=== PATIENT | female | born 1955 | race American Indian/Alaskan Native ===

== ENCOUNTER 2020-01-02 10:21 | Emergency (ER) | payer BC, MEDICARE, OTHER ==
[~2020-01-02] VITALS: Ht 154.9 cm; Wt 93.9 kg
--- OUTSIDE RECORDS SUMMARY | ~2020-01-02 | XMS | Encounter Summary ---
Demographics + + + | Address | [address] | | | [place] [address] | + + + | Home Phone | | + + + | Preferred Language | Unknown | + + + | Marital Status | | + + + | Moravian Affiliation | 1041 | + + + | Race | Unknown | + + + | Ethnic Group | Not or | + + + Author + + + | Author | [facility] | | | and [place] | + + + | Organization | [facility] | | | and [place] | + + + | Address | Unknown | + + + | Phone | Unavailable | + + + Support + + +---------+ + | Name | Relationship | Address | Phone | + + +---------+ + | Giacomo [place] | ECON | Unknown | | + + +---------+ + | Ninfa Morel | ECON | Unknown | | + + +---------+ + Care Team Providers + +------+ + | Care Manager Of Human Resources Name | Role | Phone | + +------+ + | Jean Carlos Crowell PA-C | PCP | | + +------+ + Encounter Details +--------+ + + + + | Date | Type | Department | Care Team | Description | +--------+ + + + + | 11/17/ | Orders Only | [facility] | Alyssamarielos, | | | 2018 | | RHEUMATOLOGY [address] | Jess Ortiz SENSORY SCIENTIST [address] | | | | | [address] | [address] | | | | | [place], [place] | [place] [address] | | | | | [address] | [phone] | | | | | [phone] | | | +--------+ + + + + Social History + +-------+ +--------+------+ | Tobacco Use | Types | Packs/Day | Years | Date | | | | | Used | | + +-------+ +--------+------+ | Current Every Day | | 0.5 | 40 | | | Smoker | | | | | + +-------+ +--------+------+ + +---+---+---+ | Smokeless Tobacco: | | | | | Never Used | | | | + +---+---+---+ + + +---------+ + | Alcohol Use | Drinks/Week | oz/Week | Comments | + + +---------+ + | No | | | | + + +---------+ + + + + | Sex Assigned at | Date Recorded | | | | + + + | Not on file | | + + + documented as of this encounter Plan of Treatment +--------+---------+ + + + | Date | Type | Specialty | Care Team | Description | +--------+---------+ + + + | 01/15/ | Office | Rheumatology | Trevon, | | | 2020 | Visit | | [address] | | | | | | [address] | | | | | | [place] [address] | | | | | | [phone] | | | | | | | | +--------+---------+ + + + documented as of this encounter Visit Diagnoses Not on filedocumented in this encounter"
--- OUTSIDE RECORDS SUMMARY | ~2020-01-02 | XMS | Encounter Summary ---
Demographics + + + | Address | [address] | | | [place] [address] | + + + | Home Phone | | + + + | Preferred Language | Unknown | + + + | Marital Status | | + + + | Anglican Affiliation | 1041 | + + + | Race | Unknown | + + + | Ethnic Group | Not or | + + + Author + + + | Author | [facility] | | | and [place] | + + + | Organization | [facility] | | | and [...] Team Providers + +------+ + | Care Forge Press Operator Name | Role | Phone | + +------+ + | Jean Carlos Crowell PA-C | PCP | | + +------+ + Encounter Details +--------+ + + + + | Date | Type | Department | Care Team | Description | +--------+ + + + + | 06/18/ | Hospital | [facility] | Crys Garber | Mastodynia of left | | 2020 | Encounter | MED CTR MAMMOGRAPHY | STEVE Riggins [address] | breast | | | | [address] | [address] | | | | | [place], [place] | [place] [address] | | | | | [address] | [phone] | | | | | [phone] | | | | | | | Rad, [facility] | | +--------+ + + + + [...] + + documented as of this encounter Medications at Time of Discharge + + + +---------+ + + | Medication | Sig | Dispensed | Refills | Start | End Date | | | | | | Date | | + + + +---------+ + + | aspirin 81 mg EC | Take 81 mg by mouth | | 0 | | | | tablet | Daily. | | | | | + + + +---------+ + + | atorvaSTATin | | | 0 | 10/11/20 | | | (LIPITOR) 10 mg | | | | 18 | | | tablet | | | | | | + + + +---------+ + + | celecoxib | Take 200 mg by mouth | | 0 | | | | (CELEBREX) 200 mg | 2 times daily. | | | | | | capsule | | | | | | + + + +---------+ + + | Cholecalciferol | Take by mouth. | | 0 | | | | 59996 units CAPS | | | | | | + + + +---------+ + + | etodolac (LODINE) | Take 400 mg by mouth | | 0 | | | | 400 mg tablet | 2 times daily. | | | | | + + + +---------+ + + | folic acid 1 mg | Take 1 tablet by | | 0 | //20 | | | tablet | mouth daily. Take | | | 19 | | | | one tablet daily | | | | | + + + +---------+ + + | insulin aspart | Inject 20 Units into | | 0 | | | | (NOVOLOG) 100 | the skin 3 (three) | | | | | | units/mL injection | times daily before | | | | | | | meals. | | | | | + + + +---------+ + + | insulin glargine | Inject 80 Units into | | 0 | | | | (LANTUS) 100 | the skin 2 (two) | | | | | | units/mL injection | times daily. | | | | | | (vial) | | | | | | + + + +---------+ + + | insulin pen needle | 31 g. | | 0 | 04/03/19 | | | (B-D ULTRAFINE III | | | | 16 | | | SHORT PEN) 31 gauge | | | | | | | x 8 mm | | | | | | + + + +---------+ + + | LANTUS SOLOSTAR | Inject 50 Units | | 0 | 10/19/19 | | | 100 UNIT/ML | under the skin 2 | | | 17 | | | injection (pen) | times daily. | | | | | + + + +---------+ + + | levothyroxine | Take 25 mcg by mouth | | 0 | 04/10/19 | | | (SYNTHROID) 25 mcg | daily. | | | 16 | | | tablet | | | | | | + + + +---------+ + + | losartan (COZAAR) | Take 50 mg by mouth | | 0 | | | | 50 mg tablet | Daily. | | | | | + + + +---------+ + + | metFORMIN | Take 1,000 mg by | | 0 | | | | (GLUCOPHAGE) 1000 MG | mouth 2 (two) times | | | | | | tablet | daily with meals. | | | | | + + + +---------+ + + | NOVOLOG FLEXPEN | | | 0 | 07/05/20 | | | 100 UNIT/ML | | | | 17 | | | injection pen | | | | | | + + + +---------+ + + | PARoxetine (PAXIL) | Take by mouth. | | 0 | | | | 20 mg tablet | | | | | | + + + +---------+ + + | sertraline | | | 0 | 08/27/19 | | | (ZOLOFT) 100 mg | | | | 17 | | | tablet | | | | | | + + + +---------+ + + | simvastatin | Take 10 mg by mouth | | 0 | | | | (ZOCOR) 10 mg tablet | nightly. | | | | | + + + +---------+ + + | telmisartan | Take 20 mg by mouth | | 0 | | | | (MICARDIS) 20 MG | daily. | | | | | | tablet | | | | | | + + + +---------+ + + | calcium-vitamin D | Take by mouth. | | 0 | | | | (CALCIUM 600+D3) 600 | | | | | 0 | | mg-400 units per | | | | | | | tablet | | | | | | + + + +---------+ + + | methotrexate 2.5 | Take 6 tablets by | 72 | 0 | 05/21/19 | | | mg | mouth Once a week. | tablet | | 20 | 0 | | tabletIndications: | Indications: | | | | | | Rheumatoid Arthritis | Rheumatoid Arthritis | | | | | + + + +---------+ + + | omeprazole | Take 20 mg by mouth | | 0 | | | | (PRILOSEC) 20 mg | every morning | | | | 0 | | capsule | (before breakfast). | | | | | + + + +---------+ + + | sulfaSALAzine | Take 1 tablet by | 270 | 0 | 05/21/19 | | | (AZULFIDINE) 500 mg | mouth 3 (three) | tablet | | 20 | 0 | | tablet | times daily. | | | | | + + + +---------+ + + documented as of this encounter Plan of Treatment +--------+---------+ + + + | Date | Type | Specialty | Care Team | Description | +--------+---------+ + + + | 01/15/ | Office | Rheumatology | Trevon, | | | 2019 | Visit | | Jess Ortiz [facility] [address] | | | | | | [address] | | | | | | [place] [address] | | | | | | [phone] | | | | | | | | +--------+---------+ + + + documented as of this encounter Procedures + +--------+ + + + | Procedure Name | Priori | Date/Time | Associated Diagnosis | Comments | | | ty | | | | + +--------+ + + + | LYNDON TOMOSYN | Routin | 06/19/2019 | Mastodynia of left | Results for this | | DIAGNOSTIC BILATERAL | e | 10:35 AM | breast | procedure are in the | | | | PDT | | results section. | + +--------+ + + + documented in this encounter Results LYNDON Tomosynthesis Diagnostic Bilateral (06/19/2019 10:35 AM PDT) + + | Specimen | + + | | + + + + + | Impressions | Performed At | + + + | BI-RADS CATEGORY 2: BENIGN FINDINGS. The palpable abnormality | [facility] | | corresponds to a lymph node without suspicious features. | | | RECOMMENDATION: Return to normal screening intervals. Continue self | | | breast exam. Continue left axillary examination. The patient is | | | encouraged to return for progressive symptoms or new palpable | | | abnormalities. I discussed the findings and recommendations with | | | the patient following completion of exam. Dictated and Signed by: | | | Adán Serna MD Electronically signed: 06/19/2019 12:42 PM | | + + + + + + | Narrative | Performed At | + + + | EXAM: LYNDON TOMOSYN DIAGNOSTIC BILATERAL, US BREAST LIMITED LEFT dated | [facility] | | 06/19/2019 10:35 AM HISTORY: Diagnostic breast imaging. | | | Mastodynia of left breast; SCREEN RIGHT TECHNIQUE: Bilateral | | | digital CC and MLO. Left breast lateral. Atilio synthesis is | | | performed. CAD is. Limited left axillary ultrasound. | | | COMPARISON: Mammograms dating back to 06/25/2013. MAMMOGRAM: | | | Heterogeneously dense breast parenchyma bilaterally. No | | | architectural distortion. No distinct masses. No suspicious | | | microcalcifications. There are bilateral vascular calcifications. | | | There are scattered round microcalcifications. Stable appearing | | | left axillary lymph nodes. ULTRASOUND: Imaging of the left axilla | | | is performed. The palpable abnormality corresponds to a lymph node | | | with a hypertrophied fatty hilus and a thin rim of tissue. There | | | is also a more typical appearing smaller lymph node in the same | | | region. No other abnormalities are noted. | | + + + + + | Procedure Note | + + | Norm, Rad Results In - 06/19/2019 12:45 PM PDT EXAM: LYNDON TOMOSYN DIAGNOSTIC BILATERAL, | | US BREAST LIMITED LEFT dated 06/19/201910:35 AMHISTORY: Diagnostic breast imaging. | | Mastodynia of left breast; SCREEN RIGHTTECHNIQUE: Bilateral digital CC and MLO. Left | | breast lateral. Atilio synthesisis performed. CAD is. Limited left axillary | | ultrasound.COMPARISON: Mammograms dating back to 06/25/2013.MAMMOGRAM: Heterogeneously | | dense breast parenchyma bilaterally. Noarchitectural distortion. No distinct masses. | | No suspiciousmicrocalcifications. There are bilateral vascular calcifications. There | | arescattered round microcalcifications. Stable appearing left axillary | | lymphnodes.ULTRASOUND: Imaging of the left axilla is performed. The palpable | | abnormalitycorresponds to a lymph node with a hypertrophied fatty hilus and a thin rim | | oftissue. There is also a more typical appearing smaller lymph node in the sameregion. | | No other abnormalities are noted.IMPRESSION: BI-RADS CATEGORY 2: BENIGN FINDINGS. The | | palpable abnormality corresponds to alymph node without suspicious | | features.RECOMMENDATION: Return to normal screening intervals. Continue self | | breastexam. Continue left axillary examination. The patient is encouraged to returnfor | | progressive symptoms or new palpable abnormalities. I discussed thefindings and | | recommendations with the patient following completion of exam.Dictated and Signed by: | | Adán Serna MD Electronically signed: 06/19/2019 12:42 PM | |tissue. There is also a more typical appearing smaller lymph node in the same | |region. No other abnormalities are noted. | | | |IMPRESSION: | | | |BI-RADS CATEGORY 2: BENIGN FINDINGS. The palpable abnormality corresponds to a | |lymph node without suspicious features. | | | |RECOMMENDATION: Return to normal screening intervals. Continue self breast | |exam. Continue left axillary examination. The patient is encouraged to return | |for progressive symptoms or new palpable abnormalities. I discussed the | |findings and recommendations with the patient following completion of exam. | | | |Dictated and Signed by: Adán Serna MD | | Electronically signed: 06/19/2019 12:42 PM | + + + +---------+ + + | Performing | Address | City/State/Zipcode | Phone Number | | Organization | | | | + +---------+ + + | [facility] | | | | + +---------+ + + documented in this encounter Visit Diagnoses + + | Diagnosis | + + | Mastodynia of left breast | + + documented in this encounter"
--- OUTSIDE RECORDS SUMMARY | ~2020-01-02 | XMS | Encounter Summary ---
Demographics + + + | Address | [address] | | | [place] [address] | + + + | Home Phone | | + + + | Preferred Language | Unknown | + + + | Marital Status | | + + + | Alevism Affiliation | 1041 | + + + | Race | Unknown | + + + | Ethnic Group | Not or | + + + Author + + + | Author | [facility] | | | and [place] | + + + | Organization | [facility] | | | [...] Team Providers + +------+ + | Care Operations Research Scientist Name | Role | Phone | + +------+ + | Jean Carlos Crowell PA-C | PCP | | + +------+ + Encounter Details +--------+ + + + + | Date | Type | Department | Care Team | Description | +--------+ + + + + | 06/18/ | Hospital | [facility] | Say Garberth | Mastodynia of left | | 2020 | Encounter | MED CTR ULTRASOUND | Vaishnavi PA-C [address] | breast | | | | [address] [place] | [address] | | | | | [place], [place] | [place] [address] | | | | | [address] | [phone] | | | | | [phone] | | | +--------+ + + + [...] | | 0 | | | | 22760 units CAPS | | | | | | + + + +---------+ + + | etodolac (LODINE) | Take 400 mg by mouth | | 0 | | | | 400 mg tablet | 2 times daily. | | | | | + + + +---------+ + + | folic acid 1 mg | Take 1 tablet by | | 0 | 05/30/19 | | | tablet | mouth daily. [...] | | 2020 | Visit | | Jess Ortiz [facility] [address] | | | | | | [address] | | | | | | [place] [address] | | | | | | [phone] | | | | | | | | +--------+---------+ + + + documented as of this encounter Procedures + +--------+ + + + | Procedure Name | Priori | Date/Time | Associated Diagnosis | Comments | | | ty | | | | + +--------+ + + + | US BREAST LIMITED | Routin | 06/19/2019 | Mastodynia of left | Results for this | | LEFT | e | 11:18 AM | breast | procedure are in the | | | | PDT | | results section. | + +--------+ + + + documented in this encounter Results US Breast Limited Left (06/19/2019 11:18 AM PDT) + + | Specimen | [...]
--- OUTSIDE RECORDS SUMMARY | ~2020-01-02 | XMS | Encounter Summary ---
Demographics + + + | Address | [address] | | | [place] [address] | + + + | Home Phone | | + + + | Preferred Language | Unknown | + + + | Marital Status | | + + + | Mandaen Affiliation | 1041 | + + + | Race | Unknown | + + + | Ethnic Group | Not or | + + + Author + + + | Author | [facility] | | | and [place] | + + + | Organization | [facility] | | | and [...] Team Providers + +------+ + | Care Water Taxi Captain Name | Role | Phone | + +------+ + | Jean Carlos Crowell PA-C | PCP | | + +------+ + Encounter Details +--------+ + + + + | Date | Type | Department | Care Team | Description | +--------+ + + + + | 11/09/ | Orders Only | [facility] | Naseem Umanzor, | | | 2017 | | MED CTR PROVIDER | [address] | | | | | SURGICAL [address] | [place], [place] | | | | | [place], | [address] | | | | | [place] [address] | | | | | | [phone] | | | +--------+ + + + + Social History + +-------+ +--------+------+ | Tobacco Use | Types | Packs/Day | Years | Date | | | | | Used | | + +-------+ +--------+------+ | Current Every Day | | 0.5 | 40 | | | Smoker | | | | | + +-------+ +--------+------+ + + +---------+ + | Alcohol Use [...] 2020 | Visit | | [address] | | | | | | [address] | | | | | | [place] [address] | | | | | | [phone] | | | | | | | | +--------+---------+ + + + documented as of this encounter Visit Diagnoses Not on filedocumented in this encounter"
--- OUTSIDE RECORDS SUMMARY | ~2020-01-02 | XMS | Encounter Summary ---
Demographics + + + | Address | [address] | | | [place] [address] | + + + | Home Phone | | + + + | Preferred Language | Unknown | + + + | Marital Status | | + + + | Jain Affiliation | 1041 | + + + | Race | Unknown | + + + | Ethnic Group | Not or | + + + Author + + + | Author | [facility] | | | and [place] | + + + | Organization | [facility] | | | [...] Team Providers + +------+ + | Care Vacuum Drier Operator Name | Role | Phone | + +------+ + PCP | Unavailable | + +------+ + Encounter Details +--------+ + + + + | Date | Type | Department | Care Team | Description | +--------+ + + + + | 10/18/ | Hospital | [facility] | Gavin Aguilar | | | 2006 | Encounter | MED CTR SLEEP | MD Mj [address] [place] [address] | | | | | [place] [address] | [address] [place] | | | | | [place], [place] | [place] [address] | | | | | [address] | [phone] | | | | | [phone] | | | +--------+ + + + + Social History + +-------+ +--------+------+ | Tobacco Use | Types | Packs/Day | Years | Date | | | | | Used | | + +-------+ +--------+------+ | Never Assessed | | | | | + +-------+ +--------+------+ + + + | Sex Assigned at [...] [address] | | | | | | [place] [address] | | | | | | [phone] | | | | | | | | +--------+---------+ + + + documented as of this encounter Visit Diagnoses Not on filedocumented in this encounter"
--- OUTSIDE RECORDS SUMMARY | ~2020-01-02 | XMS | Encounter Summary ---
Demographics + + + | Address | [address] | | | [place] [address] | + + + | Home Phone | | + + + | Preferred Language | Unknown | + + + | Marital Status | | + + + | Episcopal Affiliation | 1041 | + + + | Race | Unknown | + + + | Ethnic Group | Not or | + + + Author + + + | Author | [facility] | | | and [place] | + + + | Organization | [facility] | | | and [...] Team Providers + +------+ + | Care Hot Water Heater Installer Name | Role | Phone | + +------+ + | Jean Carlos Crowell PA-C | PCP | | + +------+ + Encounter Details +--------+ + + + + | Date | Type | Department | Care Team | Description | +--------+ + + + + | 03// | Imaging | [facility] | Provider, | | | 2020 | Exam | MED CTR EXTERNAL | MD [address] | | | | | IMAGING [address] | [address] | | | | | [address] [place] | [place] [address] | | | | | [place] [address] | | | | | | [phone] | | | +--------+ + + + [...] | | 2019 | Visit | | [address] | | | | | | [address] | | | | | | [place] [address] | | | | | | [phone] | | | | | | | | +--------+---------+ + + + documented as of this encounter Procedures + +--------+ + + + | Procedure Name | Priori | Date/Time | Associated Diagnosis | Comments | | | ty | | | | + +--------+ + + + | LYNDON DIGITAL | Routin | 08/27/2014 | | Results for this | | SCREENING BILATERAL | e | 12:00 AM | | procedure are in the | | | | PDT | | results section. | + +--------+ + + + documented in this encounter Results LYNDON Digital Screening Bilateral (08/27/2014 12:00 AM PDT) + + | Specimen | + + | | + + + + + | Narrative | Performed At | + + + | External films for comparison only | [facility] | | | | | No results will be in the chart. | | + + + + +---------+ + + | Performing | Address | City/State/Zipcode | Phone Number | | Organization | | | | + +---------+ + + | [facility] | | | | + +---------+ + + documented in this encounter Visit Diagnoses Not on filedocumented in this encounter"
--- OUTSIDE RECORDS SUMMARY | ~2020-01-02 | XMS | Encounter Summary ---
Demographics + + + | Address | [address] | | | [place] [address] | + + + | Home Phone | | + + + | Preferred Language | Unknown | + + + | Marital Status | | + + + | Judaism Affiliation | 1041 | + + + | Race | Unknown | + + + | Ethnic Group | Not or | + + + Author + + + | Author | [facility] | | | and [place] | + + + | Organization | [facility] | | | [...] Team Providers + +------+ + | Care Irrigation Pump Installer Name | Role | Phone | + +------+ + | Jean Carlos Crowell PA-C | PCP | | + +------+ + Reason for Referral Evaluate & Treat (Routine) +--------+ + + + + + | Status | Reason | Specialty | Diagnoses / | Referred By | Referred To | | | | | Procedures | Contact | Contact | +--------+ + + + + + | Denied | Specialty | Physical | Diagnoses | | [facility] | | | Services | Therapy | Thoracic | Diego, | [facility] | | | Required | | back pain | Luis Richey MD | HOSPITAL | | | | | Osteoporosis | [address] | [address] | | | | | | [address] [place] [address] | | | | | Compression | [place], [place] | [place], [place] | | | | | fracture of | [address] | [address] | | | | | thoracic | Phone: | Phone: | | | | | vertebra, | [phone] | [phone] | | | | | sequela | Fax: | Fax: | | | | | | [phone] | [phone] | +--------+ + + + + + Reason for Visit + + + | Reason | Comments | + + + | Back Pain | mid back pain | + + + Evaluate & Treat (Routine) +--------+--------+ + + + + | Status | Reason | Specialty | Diagnoses / | Referred By | Referred To | | | | | Procedures | Contact | Contact | +--------+--------+ + + + + | Closed | | Physical | Diagnoses | Mervat, | Diego, | | | | Medicine and | Mid back | Jean Carlos Valle, | Luis Richey MD | | | | Rehabilitatio | pain | PA-C [address] | [address] | | | | n | | [address] | | | | | | [address] | [place] | | | | | | [place], | [address] Phone: | | | | | | [place] [address] | [phone] | | | | | | Phone: | Fax: | | | | | | [phone] | [phone] | | | | | | Fax: | | | | | | | [phone] | | +--------+--------+ + + + + Encounter Details +--------+---------+ + + + | Date | Type | Department | Care Team | Description | +--------+---------+ + + + | 10/18/ | Office | [facility] | Luis Cortez | Thoracic back pain | | 2013 | Visit | PHYSIATRY [address] | MD Kaiden [address] | (Primary Dx); | | | | [address] | [place] | Osteoporosis; | | | | [place], [place] | [address] | Compression fracture | | | | [address] | | of thoracic | | | | [phone] | | vertebra, sequela | +--------+---------+ + + + Social History + +-------+ [...] + + documented as of this encounter Last Filed Vital Signs + + + + + | Vital Sign | Reading | Time Taken | Comments | + + + + + | Blood Pressure | 104/62 | 10/18/2013 10:01 AM | | | | | PDT | | + + + + + | Pulse | 97 | 10/18/2013 10:01 AM | | | | | PDT | | + + + + + | Temperature | - | - | | + + + + + | Respiratory Rate | - | - | | + + + + + | Oxygen Saturation | - | - | | + + + + + | Inhaled Oxygen | - | - | | | Concentration | | | | + + + + + | Weight | 95.3 kg (210 lb) | 10/18/2013 10:01 AM | | | | | PDT | | + + + + + | Height | 157.5 cm (5' 2") | 10/18/2013 10:01 AM | | | | | PDT | | + + + + + | Body Mass Index | 38.41 | 10/18/2013 10:01 AM | | | | | PDT | | + + + + + documented in this encounter Progress Notes Luis Cortez MD - 10/18/2013 9:08 AM PDT CHIEF COMPLAINT: Chief Complaint Patient presents with Back Pain mid back pain HISTORY OF PRESENT ILLNESS: The patient is a 58 y.o. female being seen today at the [facility] of Jean Carlos Crowell PA-C for complaints of mid back pain that began 2 months ago. The sympto ms began after no known recent injury or insult. She does have a history of fracturing 2 ve rtebra and needing surgery. She reports that at least one of the fractures occurred just fr om lifting something heavy. She reports her symptoms are a dull aching in the thoracic zuleyma on that is daily, but comes and goes. She reports the pain is severe, worse with prolonged sitting - expecially on a hard chair. She reports the pain is better with rest, lying down and when she bends forward and lets her arms hang, this will streatch and pop the area. S jaison the symptoms began, she has noticed that symptoms have been worsening. The patient does describe numbness of the the bilateral upper extremities and bilateral low er extremities occasionally. She does not report weakness of the bilateral lower extremiti es. She does not have bowel and bladder dysfunction. She does not have saddle anesthesia. Treatments for these complaints have included massage, chiropractic therapy, narcotic use. Patient's medications, allergies, past medical, surgical, social and family histories were reviewed and updated as appropriate. PAST MEDICAL HISTORY: Past Medical History Diagnosis Date Peptic ulcer disease Depression GERD (gastroesophageal reflux disease) Hypertension Sleep apnea Osteoarthritis Diabetes mellitus (HCC) Muscle mass left axilla Hyperlipidemia Rheumatoid arthritis(714.0) ([facility]) Scleroderma (HCC) Gout Chronic kidney disease (HCC) Osteoporosis Poor circulation Neuropathy Feet Thoracic back pain 10/18/2013 Osteoporosis 10/18/2013 Compression fracture of thoracic vertebra ([facility]) 10/18/2013 PAST SURGICAL HISTORY: Past Surgical History Procedure Date Back surgery 2010 Hernia repair Hysterectomy Spine surgery Tonsillectomy Cholecystectomy Knee surgery left knee Carpal tunnel release bilateral Wrist surgery right Humerus fracture surgery Cyst removal Colonoscopy CURRENT MEDICATIONS: Current Outpatient Prescriptions Medication Sig Dispense Refill aspirin 81 mg EC tablet Take 81 mg by mouth Daily. celecoxib (CELEBREX) 200 mg capsule Take 200 mg by mouth 2 times daily. cephalexin (KEFLEX) 500 mg capsule Take 500 mg by mouth 4 times daily. cholecalciferol (VITAMIN D-3) 5,000 units/mL liquid Take 1,000 Units by mouth Daily. clotrimazole (LOTRIMIN) 1% cream Apply topically 2 times daily. etodolac (LODINE) 400 mg tablet Take 400 mg by mouth 2 times daily. HYDROcodone-acetaminophen (NORCO) 10-325 mg per tablet Take 1 tablet by mouth every 6 h ours as needed. hydrophilic ointment Apply topically as needed. hydroxychloroquine (PLAQUENIL) 200 mg tablet Take by mouth Daily. ibandronate (BONIVA) 150 mg tablet Take 150 mg by mouth Every 30 days. insulin aspart (NOVOLOG) 100 units/mL injection Inject under the skin 3 times daily (b efore meals). liraglutide (VICTOZA) 18 mg/3 mL injection Inject 1.2 mg under the skin Daily. losartan (COZAAR) 50 mg tablet Take 50 mg by mouth Daily. metformin (GLUCOPHAGE) 1000 MG tablet Take 1,000 mg by mouth 2 times daily (with breakf ast & dinner). Multiple Minerals-Vitamins (CALCIUM & VIT D3 BONE HEALTH PO) Take 600 mg by mouth. omeprazole (PRILOSEC) 20 mg capsule Take 20 mg by mouth every morning (before breakfast ). paroxetine (PAXIL) 40 MG tablet Take 40 mg by mouth every morning. simvastatin (ZOCOR) 10 mg tablet Take 10 mg by mouth nightly. sulfaSALAzine (AZULFIDINE) 500 mg tablet Take 500 mg by mouth 4 times daily. ALLERGIES: Allergies Allergen Reactions Alendronate Sodium Hydroxyquinolines Ibuprofen Levofloxacin SOCIAL HISTORY: The patient reports that she has been smoking. She does not have any smokeless tobacco hi story on file. She reports that she does not drink alcohol or use illicit drugs. FAMILY HISTORY: Family History Problem Relation Age of Onset Alcohol abuse Mother Arthritis Mother Clotting disorder Mother Cancer Mother Diabetes Mother Heart disease Mother Alcohol abuse Father REVIEW OF SYSTEMS: GENERALLY: No fever, chills, no night sweats, no weight gain, no weight loss, no anemia, + fatigue. EYES: No eye problems, no impaired sight, + contacts, + eye injury, no double vision, no t ransient blindness. EARS, NOSE, THROAT and MOUTH: No change in sense taste/smell, no hearing difficulty, no ri nging in ears, no drainage from ears, no ear injury, no dizziness, no voice change, no diffi culty swallowing, + snoring, + sleep apnea/CPAP, no sinus trouble, no dental work. NEUROMUSCULAR: No numbness/pain of arms, no numbness/pain of legs, no awake with numbness/ pain, + weakness, + muscle aching, no coordination difficulty, no change in walk, no head in jury, no neck injury, + back injury, no pain in neck, + pain in back, no stroke, + fainting spells, no loss of consciousness, no tremor/shaking, no seizures, + headaches, no migraines, + memory loss, no speech difficulty, no confusion, no numbness of face. PSYCHIATRIC: + depression, no difficulty sleeping, no anxiety, no bipolar disorder. CARDIOVASCULAR/PULMONARY: No heart attack, no heart murmur, no fluttering heart, + shortne ss of breath, + cough, no Tuberculosis, no chest pain, + swelling ankles, no bloody coughing , no asthma, no COPD/emphysema. GASTROINTESTINAL: No bowel disease, no nausea/vomiting, no rectal bleeding/hemorroids, + c onstipation, no fecal/stool incontinence, no liver/gallbladder disease, no abdominal pain. GENITOURINARY: No frequent urination, no painful/difficult with urination, + urinary incont inence, no bladder problems. ENDOCRINE: + diabetes, no thyroid disease, + osteoporosis, no drainage from breasts. INTEGUMENTARY/SKIN: No lump in breasts, + skin disease or skin changes, no rash/itch. HEMATOLOGIC: No enlarged lymph nodes, no ease or unusual bleeding, no cancer. RHEUMATOLOGIC: + joint pain/arthritis, no rheumatoid arthritis PHYSICAL EXAMINATION: Filed Vitals: 10/18/13 1001 BP: 104/62 Pulse: 97 PainSc: 2 Body mass index is 38.40 kg/(m^2). GENERAL: The patient is well developed and well nourished. She does not appear uncomfortab le when seated. HEENT: HEAD/FACE: EYES: Normocephalic and atraumatic. There are no areas of recent trauma. Normal sclerae without icterus. SKIN Limited skin exam shows no significant rashes or lesions. There are scars in the thor acic region. CHEST: The patient is in no acute respiratory distress with unlabored respirations. HEART: There is not lower extremity edema. ABDOMEN: Soft, non-tender, non-distended, and without palpable masses. The patient is obe se with the majority of the weight in the abdomen. NEUROLOGIC: The patient is awake, alert, and oriented to time, place, person. She follows simple and complex commands. Her speech is fluent. She comprehends speech well. She has no apparent deficits with short or shelter memory. She has appropriate fund of knowledge Cranial nerves 2-12 appear grossly intact. Sensory exam does show diminished sensation to light touch in the upper and lower extremit ies, mild in a stocking and glove distribution. REFLEX: RIGHT LEFT PATELLAR 1+ 1+ ACHILLES 0 0 PLANTAR Downgoing Downgoing MUSCULOSKELETAL There is no major palpable deformity of the spine. Straight leg raise and slump-sit are negative. Yovanny's maneuver and impingement testing were negative for any groin pain. There was no tenderness to palpation over the greater tr ochanters or sacral sulci. The patient localized the majority of the pain to the T10 region . Lumbar facet loading was negative. Strength testing showed 5/5 strength throughout the l ower extremities. The patient was able to heel and toe walk without difficulty. There was no redness, effusion, warmth or joint line tenderness in the knees or ankles. RADIOGRAPHIC REVIEW: The patient's imaging was reviewed in detail with the patient today during the visit. The images show the old compression fractures at T6 and T9 with the kyphoplasty cement in place. ASSESSMENT: 1. Thoracic back pain 2. Osteoporosis 3. Compression fracture of thoracic vertebra, sequela PLAN: 1. The patient is very deconditioned, overweight and has poor posture. I believe these is sues are contributing significantly to her pain. I recommend the patient start with physical therapy and a detailed PT prescription was given. 2. I discussed with the patient that the best thing to do for back pain, rn long term care, is gett ing to and/or maintaining an appropriate weight, core strengthening and avoiding aggravating activities by using appropriate body mechanics/ergonomics. We reviewed a home exercise prog sera including aerobic conditioning, isometric core strengthening and gentle stretching. 3. I do not see a role for any additional surgery or any injections at this time. 4. I did not make any changes in her medications today. ELECTRONICALLY SIGNED BY: Luis Cortez MD, 10/18/2013 Scribed by: Nirmala Buenrostro MA for Dr. Luis Cortez on 10/18/2013 documented in this encounter Miscellaneous Notes Miscellaneous - [facility] - 10/18/2013 12:00 AM PDT iscellaneous - [facility] - 10/18/2013 12:00 AM PDTEle ctronically signed by Melanie Talbot at 10/22/2013 4:52 PM PDTdocumented in this encounter Plan of Treatment +--------+---------+ + + + | Date | Type | Specialty | Care Team | Description | +--------+---------+ + + + | 01/15/ | Office | Rheumatology | [place], | | | 2019 | Visit | | Jess Ortiz [facility] [address] | | | | | [address] | | | | | | [place] [address] | | | | | | [phone] | | | | | | | | +--------+---------+ + + + + + +--------+ + + | Name | Type | Priori | Associated Diagnoses | Order Schedule | | | | ty | | | + + +--------+ + + | Ambulatory referral | Outpatient | Routin | Thoracic back pain | Ordered: 10/18/2013 | | to Physical Therapy | Referral | e | Osteoporosis | | | | | | Compression fracture | | | | | | of thoracic | | | | | | vertebra, sequela | | + + +--------+ + + documented as of this encounter Visit Diagnoses + + | Diagnosis | + + | Thoracic back pain - Primary Pain in thoracic spine | + + | Osteoporosis Osteoporosis, unspecified | + + | Compression fracture of thoracic vertebra, sequela | + + documented in this encounter
--- OUTSIDE RECORDS SUMMARY | ~2020-01-02 | XMS | Encounter Summary ---
Demographics + + + | Address | [address] | | | [place] [address] | + + + | Home Phone | | + + + | Preferred Language | Unknown | + + + | Marital Status | | + + + | Scientology Affiliation | 1041 | + + + | Race | Unknown | + + + | Ethnic Group | Not or | + + + Author + + + | Author | [facility] | | | and [place] | + + + | Organization | [facility] | | | [...] Team Providers + +------+ + | Care Silo Operator Name | Role | Phone | + +------+ + | Jean Carlos Crowell PA-C | PCP | | + +------+ + Reason for Visit +--------+--------+ + | Reason | Onset | Comments | | | Date | | +--------+--------+ + | Other | 07/29/ | faxed chart notes and labs to [facility] | | | 2019 | | +--------+--------+ + Encounter Details +--------+ + + + + | Date | Type | Department | Care Team | Description | +--------+ + + + + | 07/29/ | Telephone | [facility] | [place], | Other (faxed chart | | 2020 | | RHEUMATOLOGY [address] | [place] [address] | notes and labs to | | | | [address] | [address] | [facility]) | | | | [place], [place] | [place] [address] | | | | | [address] | [phone] | | | | | [phone] | | | +--------+ + + + [...] + + documented as of this encounter Miscellaneous Notes Telephone Encounter - Patti Richardson Budget Director - 08/02/2019 10:20 AM PDTFaxed R x of [facility] to [facility] Confirmation received [phone] signed by Patti Richardson Medical Assist ant at 08/02/2019 10:21 AM PDTTelephone Encounter - Patti Richardson Budget Director - 0 07/30/2019 7:46 AM PDTRouted chart notes and labs from December 2018 to Apr 2019 to [facility] kirby Sharma in medical records [phone] signed by Dave Guevara at 07/30/2019 7:4 7 AM PDTdocumented in this encounter Plan of Treatment +--------+---------+ + + + | Date | Type | Specialty | Care Team | Description | +--------+---------+ + + + | 01/15/ | Office | Rheumatology | [place], | | | 2019 | Visit | | [address] | | | | | | [address] | | | | | | [place] [address] | | | | | | [phone] | | | | | | | | +--------+---------+ + + + documented as of this encounter Visit Diagnoses Not on filedocumented in this encounter"
--- OUTSIDE RECORDS SUMMARY | ~2020-01-02 | XMS | Encounter Summary ---
Demographics + + + | Address | [address] | | | [place] [address] | + + + | Home Phone | | + + + | Preferred Language | Unknown | + + + | Marital Status | | + + + | Oriental Orthodox Affiliation | 1041 | + + + | Race | Unknown | + + + | Ethnic Group | Not or | + + + Author + + + | Author | [facility] | | | and [place] | + + + | Organization | [facility] | | | [...] Team Providers + +------+ + | Care Assembler Final Name | Role | Phone | + +------+ + | Jean Carlos Crowell PA-C | PCP | | + +------+ + Reason for Visit Auth/Cert +--------+--------+ + + + + | Status | Reason | Specialty | Diagnoses / | Referred By | Referred To | | | | | Procedures | Contact | Contact | +--------+--------+ + + + + | | | | Diagnoses | | | | | | | Age-related | | | | | | | nuclear | | | | | | | cataract of | | | | | | | right eye | | | | | | | Age-related | | | | | | | nuclear | | | | | | | cataract of | | | | | | | right eye | | | | | | | [H25.11] | | | | | | | Procedures | | | | | | | WI REMV | | | | | | | CATARACT | | | | | | | EXTRACAP,INS | | | | | | | ERT LENS | | | | | | | EXTRACTION | | | | | | | CATARACT | | | | | | | WITH OR | | | | | | | WITHOUT LENS | | | | | | | IMPLANT | | | +--------+--------+ + + + + Encounter Details +--------+ + + + + | Date | Type | Department | Care Team | Description | +--------+ + + + + | 11/11/ | Anesthesia | [facility] | Adam Peralta MD | | | 2017 | Event | [facility] | [address] | | | | | [address] | [place] | | | | | [place] | [address] | | | | | [address] | | | | | | [phone] | | | +--------+ + + + + Anesthesia Record + + + + + | Procedure Name | Responsible | Anesthesia Start | Anesthesia Stop Time | | | Anesthesiologist | Time | | + + + + + | Right Cataract | Adam Peralta MD | 11/11/16 1130 | 11/11/16 1202 | | Extraction w/ Lens | | | | | Implant (Right Eye) | | | | + + + + + +----+---+ + + | Da | T | Event | Comment | | te | i | | | | | m | | | | | e | | | +----+---+ + + | 08 | 1 | | | | /1 | 1 | | | | 7/ | 1 | | | | 20 | 1 | | | | 17 | | | | +----+---+ + + | | 1 | An Start | Reassessment prior to anesthesia induction/procedure. | | | 1 | | | | | 3 | | | | | 0 | | | +----+---+ + + | | 1 | An | | | | 1 | Induction | | | | 3 | | | | | 3 | | | +----+---+ + + | | 1 | Block Start | | | | 1 | | | | | 3 | | | | | 4 | | | +----+---+ + + | | 1 | AN Block | | | | 1 | End | | | | 3 | | | | | 5 | | | +----+---+ + + | | 1 | Pre-Procedu | | | | 1 | ral Timeout | | | | 4 | Completed | | | | 1 | | | +----+---+ + + | | 1 | First | | | | 1 | Inc/Proc St | | | | 4 | | | | | 2 | | | +----+---+ + + | | 1 | An Stop | Patient handed off to recovery nurse. | | | 0 | | | | | 2 | | | +----+---+ + + +------+ | Meds | +------+ + +--------+ | Name | Total | + +--------+ | propofol (DIPRIVAN) injection | 80 mg | | (bolus) (20 mL) | | + +--------+ | lidocaine 2% | 40 mg | + +--------+ | lactated ringers (LR) infusion | 500 mL | + +--------+ + + | Name | + + | N2O Flow Rate (L/Min) | + + | O2 Flow Rate (L/Min) | + + | Insp O2 | + + | Exp SEV | + + | Air Flow Rate (L/Min) | + + + + | No blood administrations on file. | + + +--------+ + + + | Type | Details | Placement | Removal | +--------+ + + + | Periph | 11/11/16; 1039; Left; Forearm; | 11/11/16 1039 by | 11/11/16 1240 by | | eral | [id number] catheter system; | Nadiya Yang, | Carol Singh RN | | IV | 20 gauge; intradermal injection, | RN | | | | topical anesthetic spray applied; | | | | | no longer indicated; 11/11/16; | | | | | 1240 | | | +--------+ + + + | Read | 11/11/16; 1142; Right; eye; | 11/11/16 1142 by | 06/20/18 1342 by | | only - | 06/20/18 (Completed/Removed by | William Tellez RN | User Epic | | | Utility); 1342 (Completed/Removed | | | | Incisi | by Utility) | | | | on | | | | +--------+ + + + documented in this encounter Social History + +-------+ +--------+------+ | Tobacco [...] + + documented as of this encounter [place] Notes Anesthesia Postprocedure Evaluation - Adam Peralta MD - 11/11/2016 12:05 PM PDTFormyaquelin nowak of this note might be different from the original. ANESTHESIA POSTANESTHESIA EVALUATION Shiloh [place] 61 y.o. female 1955 [id number] Procedure(s) Right Cataract Extraction w/ Lens Implant (Right Eye) Cooperates? Yes Mental Status Performs simple tasks. Respiratory Satisfactory - Airway patent (self maintained). Cardiovascular Satisfactory - Blood pressure and heart rate acceptable Temperature Satisfactory Pain Satisfactory N/V Control Satisfactory Hydration Satisfactory - No signs of dehydration Complications None apparent Vitals: 11/11/16 0957 11/11/16 1202 BP: 128/62 124/57 Pulse: 73 69 Temp: 36.6 C (97.9 F) 36.5 C (97.7 F) Resp: 18 16 SpO2: 99% 97% Electronically signed by Adam Peralta MD 11/11/2016 12:05 [facility] signed by Adam Peralta MD at 11/11 12:05 PM PDTAnesthesia Preprocedure Evaluation - Adam Peralta MD - 11/11/2016 10:47 AM PDT ANESTHESIA PREANESTHESIA EVALUATION Shiloh [place] 61 y.o. female 1955 [id number] Procedure(s): Right Cataract Extraction w/ Lens Implant (Right Eye) Anesthesia Evaluation Anesthesia Physical Exam Anesthesia Plan ASA 3 Type: MAC. Induction: Intravenous. Potential problems: None anticipated. Monitors: Standard ASA monitors. Consent statement:Anesthetic plan, alternatives, risks and benefits discussed with patient. Risks discussed included (but were not limited to): sore throat, respiratory events, heart problems, dental injury, . Consenting person understands and agrees to proceed. documented in this enc ounter Plan of Treatment +--------+---------+ + + + | Date | Type | Specialty | Care Team | Description | +--------+---------+ + + + | 01/15/ | Office | Rheumatology | [place], | | | 2019 | Visit | | [address] | | | | | | [address] | | | | | | [place] [address] | | | | | | [phone] | | | | | | | | +--------+---------+ + + + documented as of this encounter Visit Diagnoses Not on filedocumented in this encounter Administered Medications + +--------+ +-------+------+------+ | Medication Order | MAR | Action | Dose | Rate | Site | | | Action | Date | | | | + +--------+ +-------+------+------+ | lidocaine (PF) 2% injection | Given | 11/12/19 | 40 mg | | | | Intravenous, PRN, Starting [place] | | 17 11:33 | | | | | 11/11/16 at 1133, Anesthesia | | AM PDT | | | | | Intra-op | | | | | | + +--------+ +-------+------+------+ +---+---+ | | | +---+---+ + +-------+ +-------+---+---+ | propofol (DIPRIVAN) injection | Given | 11/12/19 | 80 mg | | | | Intravenous, PRN, Starting [place] | | 17 11:33 | | | | | 11/11/16 at 1133, Anesthesia | | AM PDT | | | | | Intra-op | | | | | | + +-------+ +-------+---+---+ +---+---+ | | | +---+---+ documented in this encounter"
--- OUTSIDE RECORDS SUMMARY | ~2020-01-02 | XMS | Encounter Summary ---
Demographics + + + | Address | [address] | | | [place] [address] | + + + | Home Phone | | + + + | Preferred Language | Unknown | + + + | Marital Status | | + + + | Restorationist Affiliation | [id number] | + + + | Race | Unknown | + + + | Ethnic Group | Not or | + + + Author + + + | Author | [facility] | | | and [place] | + + + | Organization | [facility] | | | [...] Team Providers + +------+ + | Care Leave Coordinator Name | Role | Phone | + +------+ + PCP | Unavailable | + +------+ + Encounter Details +--------+ + + + + | Date | Type | Department | Care Team | Description | +--------+ + + + + | 06/04/ | [facility] | [facility] | Harpreet Peralta, | | | 2010 | Encounter | MED CTR EMERGENCY | MD [address] | | | | | [place] [address] | [facility] [place] | | | | | [place], [place] | [place] [address] | | | | | [address] | [phone] | | | | | [phone] | | | +--------+ + + + [...] + + documented as of this encounter ED Notes Harpreet Peralta MD - 06/04/2010 7:44 PM PSTDATE: 06/04/2010 IDENTIFICATION: This is a 55-year-old female. CHIEF COMPLAINT: Fever and achiness. HISTORY OF PRESENT ILLNESS: This patient presented to the emergency department for evaluat ion. She has been sick since Tuesday. She has had fevers and headaches and body aches, and j ust is feeling wors e and worse. She presented to the emergency department to be seen and evaluated, and was brought in by her . No vomiting or diarrhea. No abdominal pain. She denies any burning with urination, but she does urina te frequently. Mild sore throat. No congestion. PAST MEDICAL HISTORY: Diabetes mellitus, hypertension, hypercholesterolemia, she has depre ssion. PAST SURGICAL HISTORY: Shoulder surgery, cholecystectomy, hysterectomy, carpal tunnel surg gareth, wrist surgery, appendectomy, and tonsillectomy. She also has gastroesophageal reflux disease. SOCIAL HISTORY: She smokes. Providing her own history. Accompanied by her , who is assisting with the history. MEDICATIONS 1. Acetaminophen. 2. Celebrex. 3. Losartan. 4. Paroxetine. 5. Omeprazole. 6. Aspirin. 7. Gemfibrozil. 8. Metformin. 9. Lantus insulin. 10. NovoLog insulin. 11. Liraglutide. ALLERGIES: LEVOFLOXACIN CAUSES HIVES. REVIEW OF SYSTEMS GENERAL: She has fevers and malaise. HEAD: She has a headache. EYES: No change in vision. EARS: No change in hearing. THROAT: Mild sore throat. HEART: No chest pain. RESPIRATORY: Minimal cough. No shortness of breath. GI: No nausea, vomiting, diarrhea, or constipation. No abdominal pain. : She does have urinary frequency, but no dysuria. MUSCULOSKELETAL: She has aches and pains everywhere. DERMATOLOGY: No skin lesions. NEUROLOGIC: No seizure or stroke-like symptoms. PHYSICAL EXAM VITAL SIGNS: Blood pressure 130/53, pulse 113, respirations 18, temperature 102.4, saturat ion 97% on room air. GENERAL: This is a well-nourished 55-year-old female. HEENT: No obvious trauma. Pupils equal, conjunctivae pink. Mucous membranes dry. Nose is c lear. Thro at is clear. Tympanic membranes clear. NECK: Supple. No adenopathy. HEART: Tachycardic. LUNGS: Clear to auscultation. ABDOMEN: Soft, nontender, nondistended. Bowel sounds are positive. No masses noted. EXTREMITIES: Warm and well perfused. No clubbing or cyanosis. She has 1+ edema of her legs . No joint swelling or deformity. BACK: Mild costovertebral angle tenderness bilaterally. NEUROLOGIC: She is alert, interactive. Good muscle tone and strength. EMERGENCY ROOM COURSE / TEST REVIEW: The patient was seen and examined shortly after arriv ing in the emergency department. History and physical obtained. Vital signs were noted. Given her fevers and body aches, I was concerned that maybe she has the flu, although she d id get a f fiorella shot. Rapid strep screen was done. CBC, comprehensive metabolic profile, and urinalysis done. She is diabet ic and high risk for complicated infections, so 2 sets of blood cultures were obtained. A two-view chest x-ray was obtained. There is no pneumonia. Rapid flu is negative. Comprehensive metabolic profile looks excellent, including a bicarb of 22, glu cose 115. Excellent renal function. CBC - white count is 10.1, H and H and platelets are unremarkable . Urinalys is is positive for infection with nitrite positive, leukocyte esterase, positive, white cells are 10 to 20 and many bacteria noted with rare epithelial cells. With this in mind, and reviewing her allergies, she was given Rocephin 1 g IV, and we gave her some Z ofran for nausea that she developed here after her workup was started, and she was given a liter of normal saline wide open. She is feeling much better at this point. Outpatient treatment is indicated with close foll ow up. I d id caution her about what to watch for that should cause her to return to the ER for consideration of admi ssion to [facility], and she acknowledges this, and she will be able to go home. IMPRESSION 1. ACUTE FEBRILE ILLNESS SECONDARY TO UTI/PYELONEPHRITIS. 2. DIABETES MELLITUS. PLAN: Patient is being discharged home in improved condition. I am going to send her home with a mil e-home pack of Zofran and [place]. Prescriptions for Suprax and more Vicodin and ibuprofen. Rest and fluids. O ff work. Follow up with her primary care provider. Return immediately if she worsens or other concer ns develop . DICTATED BY: Harpreet Peralta MD Emergency Medicine JOB #: [id number] EXT JOB #:[id number] <Electronicall y Signed by Harpreet Peralta MD> 06/12/10 0738 documented in this encounter Plan of Treatment +--------+---------+ + + + | Date | Type | Specialty | Care Team | Description | +--------+---------+ + + + | 01/15/ | Office | Rheumatology | [place], | | | 2019 | Visit | | Jess Ortiz [facility] [address] | | | | | | [address] | | | | | | [place] [address] | | | | | | [phone] | | | | | | | | +--------+---------+ + + + documented as of this encounter Procedures + +--------+ + + + | Procedure Name | Priori | Date/Time | Associated Diagnosis | Comments | | | ty | | | | + +--------+ + + + | URINALYSIS, REFLEX | Routin | 06/04/2010 | | Results for this | | MICROSCOPIC AND/OR | e | 9:28 PM | | procedure are in the | | CULTURE | | PST | | results section. | + +--------+ + + + | CBC WITH | Routin | 06/04/2010 | | Results for this | | DIFFERENTIAL | e | 9:09 PM | | procedure are in the | | | | PST | | results section. | + +--------+ + + + | INFLUENZA A AND B | Routin | 06/04/2010 | | Results for this | | [place], [place] | e | 9:09 PM | | procedure are in the | | | | PST | | results section. | + +--------+ + + + | COMPREHENSIVE | Routin | 06/04/2010 | | Results for this | | METABOLIC PANEL | e | 9:09 PM | | procedure are in the | | | | PST | | results section. | + +--------+ + + + | XR CHEST PA AND | | 06/04/2010 | | Results for this | | LATERAL | | 7:44 PM | | procedure are in the | | | | PST | | results section. | + +--------+ + + + documented in this encounter Results Urinalysis, Reflex Microscopic and/or Culture (06/04/2010 9:28 PM PST) + + + + + + | Component | Value | Ref Range | Performed | Pathologist | | | | | At | Signature | + + + + + + | COLLECTION | VOID | | [facility] | | | [facility] | | | [facility] | | | | | | MEDICAL | | | | | | CENTER - | | | | | | LABORATORY | | + + + + + + | Color, | YELLOW | | [facility] | | | Urine | | | [facility] | | | | | | MEDICAL | | | | | | CENTER - | | | | | | LABORATORY | | + + + + + + | Clarity, | CLEAR | | [facility] | | | Urine | | | [facility] | | | | | | MEDICAL | | | | | | CENTER - | | | | | | LABORATORY | | + + + + + + | Glucose, | NEGATIVE | NEGATIVE mg/dL | [facility] | | | Urine | | | [facility] | | | | | | MEDICAL | | | | | | CENTER - | | | | | | LABORATORY | | + + + + + + | Bilirubin, | NEGATIVE | NEGATIVE | [facility] | | | Urine | | | [facility] | | | | | | MEDICAL | | | | | | CENTER - | | | | | | LABORATORY | | + + + + + + | Ketones, | NEGATIVE | NEGATIVE | [facility] | | | Urine | | | [facility] | | | | | | MEDICAL | | | | | | CENTER - | | | | | | LABORATORY | | + + + + + + | Specific | 1.020 | 1.001 - 1.030 | [facility] | | | [place], | | | [facility] | | | Urine | | | MEDICAL | | | | | | CENTER - | | | | | | LABORATORY | | + + + + + + | Blood, | NEGATIVE | NEGATIVE | [facility] | | | Urine | | | [facility] | | | | | | MEDICAL | | | | | | CENTER - | | | | | | LABORATORY | | + + + + + + | pH, Urine | 5.5 | 5.0 - 8.0 | [facility] | | | | | | [facility] | | | | | | MEDICAL | | | | | | CENTER - | | | | | | LABORATORY | | + + + + + + | Protein, | NEGATIVE | NEGATIVE mg/dL | [facility] | | | Urine | | | [facility] | | | | | | MEDICAL | | | | | | CENTER - | | | | | | LABORATORY | | + + + + + + | Urobilinoge | NORMAL | NORMAL EU/dL | [facility] | | | n, Urine | | | [facility] | | | | | | MEDICAL | | | | | | CENTER - | | | | | | LABORATORY | | + + + + + + | Nitrite, | POSITIVE | NEGATIVE | [facility] | | | Urine | | | [facility] | | | | | | MEDICAL | | | | | | CENTER - | | | | | | LABORATORY | | + + + + + + | Leukocyte | SMALL | NEGATIVE | [facility] | | | Esterase, | | | [facility] | | | Urine | | | MEDICAL | | | | | | CENTER - | | | | | | LABORATORY | | + + + + + + | White Blood | 10-20 | 0 - 1 /hpf | [facility] | | | Cells, | | | [facility] | | | Urine | | | MEDICAL | | | | | | CENTER - | | | | | | LABORATORY | | + + + + + + | Red Blood | NONE | 0 - 4 /hpf | [facility] | | | Cells, | | | [facility] | | | Urine | | | MEDICAL | | | | | | CENTER - | | | | | | LABORATORY | | + + + + + + | Squamous | RARE | FEW /hps | [facility] | | | Epithelial | | | [facility] | | | Cells, | | | MEDICAL | | | Urine | | | CENTER - | | | | | | LABORATORY | | + + + + + + | Bacteria, | MANY | NONE /hpf | [facility] | | | Urine | | | [facility] | | | | | | MEDICAL | | | | | | CENTER - | | | | | | LABORATORY | | + + + + + + | Culture | YESComment: REFLEXED TO | | [facility] | | | Indicated | URINE CULTURE. | | [facility] | | | | | | MEDICAL | | | | | | CENTER - | | | | | | LABORATORY | | + + + + + + + + | Specimen | + + | | + + + + + + + | Performing | Address | City/State/Zipcode | Phone Number | | Organization | | | | + + + + + | [facility] | [address] | [place] | [phone] | | [facility] | | [address] | | | - LABORATORY | | | | + + + + + | [facility] | [address] | [place], [place] | | | [facility] | | [address] | | | - LABORATORY | | | | + + + + + Influenza A and B Ag, EIA (06/04/2010 9:09 PM PST) + + + + + + | Component | Value | Ref Range | Performed | Pathologist | | | | | At | Signature | + + + + + + | INFLUENZA | Presumptive | | [facility] | | | AB | NEGATIVEComment: | | [facility] | | | | Presumptive NEGATIVE for | | MEDICAL | | | | Influenza A and | | [place] - | | | | Influenza B. | | LABORATORY | | | | INTERPRETATION: | | | | | | NEGATIVE: Negative | | | | | | tests can occur from | | | | | | inadequate sample | | | | | | collection or levels | | | | | | of antigen which fall | | | | | | below the limits of | | | | | | detection of the test. | | | | | | POSITIVE: A positive | | | | | | result may occur in the | | | | | | absence of viable | | | | | | virus. @INTERNAL QC | | | | | | OK?: PINK CONTROL LINE | | | | | | APPEARS? Y | | | | + + + + + + + + | Specimen | + + | | + + + + + + + | Performing | Address | City/State/Zipcode | Phone Number | | Organization | | | | + + + + + | [facility] | [address] | [place] | [phone] | | [facility] | | [address] | | | - LABORATORY | | | | + + + + + | [facility] | [address] | [place] | | | [facility] | | [address] | | | - LABORATORY | | | | + + + + + Comprehensive Metabolic Panel (06/04/2010 9:09 PM PST) + + + + + + | Component | Value | Ref Range | Performed | Pathologist | | | | | At | Signature | + + + + + + | Glucose | 115 (H) | 70 - 109 mg/dL | [facility] | | | | | | [facility] | | | | | | MEDICAL | | | | | | CENTER - | | | | | | LABORATORY | | + + + + + + | Calcium | 8.9 | 8.3 - 10.5 | [facility] | | | | | mg/dL | [facility] | | | | | | MEDICAL | | | | | | CENTER - | | | | | | LABORATORY | | + + + + + + | Alkaline | 136 (H) | 40 - 110 IU/L | [facility] | | | Phosphatase | | | [facility] | | | | | | MEDICAL | | | | | | CENTER - | | | | | | LABORATORY | | + + + + + + | AST | 24 | 10 - 42 IU/L | [facility] | | | | | | [facility] | | | | | | MEDICAL | | | | | | CENTER - | | | | | | LABORATORY | | + + + + + + | ALT | 16 | 6 - 45 IU/L | [facility] | | | | | | [facility] | | | | | | MEDICAL | | | | | | CENTER - | | | | | | LABORATORY | | + + + + + + | Bilirubin | 0.9 | 0.2 - 1.0 mg/dL | [facility] | | | Total | | | [facility] | | | | | | MEDICAL | | | | | | CENTER - | | | | | | LABORATORY | | + + + + + + | Total | 7.7 | 6.0 - 7.8 gm/dL | [facility] | | | Protein | | | [facility] | | | | | | MEDICAL | | | | | | CENTER - | | | | | | LABORATORY | | + + + + + + | Albumin | 3.3 | 3.2 - 5.0 gm/dL | [facility] | | | | | | [facility] | | | | | | MEDICAL | | | | | | CENTER - | | | | | | LABORATORY | | + + + + + + | BUN | 15 | 7 - 18 mg/dL | [facility] | | | | | | [facility] | | | | | | MEDICAL | | | | | | CENTER - | | | | | | LABORATORY | | + + + + + + | Creatinine | 0.67 | 0.60 - 1.30 | [facility] | | | | | mg/dL | [facility] | | | | | | MEDICAL | | | | | | CENTER - | | | | | | LABORATORY | | + + + + + + | Estimated | >60 (L)Comment: For | >60 mL/min/A | [facility] | | | GFR | -Americans, | | [facility] | | | | please multiply the | | MEDICAL | | | | result by 1.210 | | CENTER - | | | | This is an estimated | | LABORATORY | | | | GFR and is based on | | | | | | a standard body | | | | | | mass and serum | | | | | | creatinine | | | | + + + + + + | BUN/Creatin | 22.4 (H) | 12 - 20 | [facility] | | | ine Ratio | | | [facility] | | | | | | MEDICAL | | | | | | CENTER - | | | | | | LABORATORY | | + + + + + + | Na | 134 (L) | 136 - 149 mEq/L | [facility] | | | | | | [facility] | | | | | | MEDICAL | | | | | | CENTER - | | | | | | LABORATORY | | + + + + + + | K | 4.2 | 3.5 - 5.1 mEq/l | [facility] | | | | | | [facility] | | | | | | MEDICAL | | | | | | CENTER - | | | | | | LABORATORY | | + + + + + + | Cl | 101 | 98 - 109 mEq/l | [facility] | | | | | | [facility] | | | | | | MEDICAL | | | | | | CENTER - | | | | | | LABORATORY | | + + + + + + | CO2 | 22 (L) | 24 - 31 mEq/L | [facility] | | | | | | [facility] | | | | | | MEDICAL | | | | | | CENTER - | | | | | | LABORATORY | | + + + + + + | Anion Gap | 15.2 | 6.0 - 17.0 | [facility] | | | | | | [facility] | | | | | | MEDICAL | | | | | | CENTER - | | | | | | LABORATORY | | + + + + + + + + | Specimen | + + | | + + + + + + + | Performing | Address | City/State/Zipcode | Phone Number | | Organization | | | | + + + + + | [facility] | [address] | [place], [place] | [phone] | | [facility] | | [address] | | | - LABORATORY | | | | + + + + + | [facility] | [address] | [place], [place] | | | [facility] | | [id number] | | | - LABORATORY | | | | + + + + + CBC with Differential (06/04/2010 9:09 PM PST) + + + + + + | Component | Value | Ref Range | Performed | Pathologist | | | | | At | Signature | + + + + + + | White Blood | 10.1 | 4.0 - 11.0 K/uL | [facility] | | | Cells | | | [facility] | | | | | | MEDICAL | | | | | | CENTER - | | | | | | LABORATORY | | + + + + + + | Red Blood | 4.30 | 3.70 - 5.20 | [facility] | | | Cells | | M/uL | [facility] | | | | | | MEDICAL | | | | | | CENTER - | | | | | | LABORATORY | | + + + + + + | Hemoglobin | 12.2 | 11.5 - 16.0 | [facility] | | | | | gm/dL | [facility] | | | | | | MEDICAL | | | | | | CENTER - | | | | | | LABORATORY | | + + + + + + | Hematocrit | 37.2 | 34.0 - 47.0 % | [facility] | | | | | | [facility] | | | | | | MEDICAL | | | | | | CENTER - | | | | | | LABORATORY | | + + + + + + | MCV | 86.5 | 83.0 - 101.0 fL | [facility] | | | | | | [facility] | | | | | | MEDICAL | | | | | | CENTER - | | | | | | LABORATORY | | + + + + + + | MCH | 28.4 | 28.0 - 35.0 pg | [facility] | | | | | | [facility] | | | | | | MEDICAL | | | | | | CENTER - | | | | | | LABORATORY | | + + + + + + | MCHC | 32.9 | 32.0 - 36.0 | [facility] | | | | | g/dL | [facility] | | | | | | MEDICAL | | | | | | CENTER - | | | | | | LABORATORY | | + + + + + + | RDW-CV | 14.8 | <15.0 % | [facility] | | | | | | [facility] | | | | | | MEDICAL | | | | | | CENTER - | | | | | | LABORATORY | | + + + + + + | Platelet | 570 (H) | 140 - 440 K/uL | [facility] | | | Count | | | [facility] | | | | | | MEDICAL | | | | | | CENTER - | | | | | | LABORATORY | | + + + + + + | % | 74.9 | 45 - 82 % | [facility] | | | Neutrophils | | | [facility] | | | | | | MEDICAL | | | | | | CENTER - | | | | | | LABORATORY | | + + + + + + | % | 14.6 (L) | 20 - 45 % | [facility] | | | Lymphocytes | | | [facility] | | | | | | MEDICAL | | | | | | CENTER - | | | | | | LABORATORY | | + + + + + + | % Monocytes | 9.7 | 4 - 12 % | [facility] | | | | | | [facility] | | | | | | MEDICAL | | | | | | CENTER - | | | | | | LABORATORY | | + + + + + + | % | 0.4 | 0 - 5 % | [facility] | | | Eosinophils | | | [facility] | | | | | | MEDICAL | | | | | | CENTER - | | | | | | LABORATORY | | + + + + + + | % Basophils | 0.4 | 0 - 1 % | [facility] | | | | | | [facility] | | | | | | MEDICAL | | | | | | CENTER - | | | | | | LABORATORY | | + + + + + + | Absolute | 7.5 | 1.8 - 8.5 K/uL | [facility] | | | Neutrophils | | | [facility] | | | | | | MEDICAL | | | | | | CENTER - | | | | | | LABORATORY | | + + + + + + | Absolute | 1.5 | 0.6 - 3.2 K/uL | [facility] | | | Lymphocytes | | | [facility] | | | | | | MEDICAL | | | | | | CENTER - | | | | | | LABORATORY | | + + + + + + | Absolute | 1.0 | 0.0 - 1.0 K/uL | [facility] | | | Monocytes | | | [facility] | | | | | | MEDICAL | | | | | | CENTER - | | | | | | LABORATORY | | + + + + + + | Absolute | 0.0 | 0.0 - 0.4 K/uL | [facility] | | | Eosinophils | | | [facility] | | | | | | MEDICAL | | | | | | CENTER - | | | | | | LABORATORY | | + + + + + + | Absolute | 0.0 | 0.0 - 0.1 K/uL | [facility] | | | Basophils | | | [facility] | | | | | | MEDICAL | | | | | | CENTER - | | | | | | LABORATORY | | + + + + + + + + | Specimen | + + | | + + + + + + + | Performing | Address | City/State/Zipcode | Phone Number | | Organization | | | | + + + + + | [facility] | [address] | [place] | [phone] | | [facility] | | [address] | | | - LABORATORY | | | | + + + + + | [facility] | [address] | [place] | | | [facility] | | [address], [facility] | | | - LABORATORY | | | | + + + + + XR Chest PA and Lateral (06/04/2010 7:44 PM PST) + + | Specimen | + + | | + + + + + | Narrative | Performed At | + + + | [facility] Diagnostic [facility] Department | [facility] | | [address] | [facility] | | TWO-VIEW CHEST: 06/04/2010 @ 2043 | DIAG IMG | | CLINICAL HISTORY: FEVER. COMPARISON: 03/26/2005 | | | FINDINGS: Heart size is normal. Pulmonary vasculature is prominent | | | centrally. Some ill-defined increased density is questioned in the | | | right lower lobe. Overlying breast tissue may contribute to this, | | | but on the lateral view, there does appear to be some increased | | | density posteriorly, in the rig ht lower lobe. No other areas of | | | abnormal lung density are seen, though anterior first rib ends are | | | agai n noted to be prominently calcified. No acute bony | | | abnormalities. IMPRESSION: 1. QUESTION OF HAZY AIRSPACE | | | DENSITY IN THE POSTERIOR RIGHT LOWER LOBE. FOLLOWUP TO COMPLETE | | | RESOLUTION WOULD BE RECOMMENDED. Dictated Date/Time: | | | 06/05/2010 07:27 Transcribed Date/Time: 06/05/2010 08:13 | | | Rectifying Attendant: <Electronically Signed by Kendall Valle | | | MD Rolando> 06/05/10 1357 | | + + + + + | Procedure Note | + + | Norm, Rad Conversion - 05/04/2013 2:25 PM [facility] | | Diagnostic Imaging Department [address] [facility] [place] | | TWO-VIEW CHEST: 06/04/2010 @ 2043 CLINICAL HISTORY: | | FEVER. COMPARISON: 03/26/2005 FINDINGS: Heart size is normal. Pulmonary vasculature | | is prominent centrally. Some ill-defined increased density is questioned in the right | | lower lobe. Overlying breast tissue may contribute to this, but on the lateral view, | | there does appear to be some increased density posteriorly, in the right lower lobe. No | | other areas of abnormal lung density are seen, though anterior first rib ends are again | | noted to be prominently calcified. No acute bony abnormalities. IMPRESSION: 1. | | QUESTION OF HAZY AIRSPACE DENSITY IN THE POSTERIOR RIGHT LOWER LOBE. FOLLOWUP TO | | COMPLETE RESOLUTION WOULD BE RECOMMENDED. Dictated Date/Time: 06/05/2010 07:27 | | Transcribed Date/Time: 06/05/2010 08:13 Rectifying Attendant: <Electronically Signed | | by Kendall Marshall MD> 06/05/10 1357 | |increased density is questioned in the right lower lobe. Overlying breast tissue may contri bute to | |this, but on the lateral view, there does appear to be some increased density posteriorly, in the rig | |ht | |lower lobe. No other areas of abnormal lung density are seen, though anterior first rib end s are agai | |n | |noted to be prominently calcified. No acute bony abnormalities. | | | |IMPRESSION: | |1. QUESTION OF HAZY AIRSPACE DENSITY IN THE POSTERIOR RIGHT LOWER LOBE. | |FOLLOWUP TO COMPLETE RESOLUTION WOULD BE RECOMMENDED. | | | |Dictated Date/Time: 06/05/2010 07:27 | |Transcribed Date/Time: 06/05/2010 08:13 | |Rectifying Attendant: | |<Electronically Signed by Kendall Marshall MD> 06/05/10 1013 | + + + +---------+ + + | Performing | Address | City/State/Zipcode | Phone Number | | Organization | | | | + +---------+ + + | [place] | | | | | [place] | | | | + +---------+ + + documented in this encounter Visit Diagnoses Not on filedocumented in this encounter"
--- OUTSIDE RECORDS SUMMARY | ~2020-01-02 | XMS | Encounter Summary ---
Demographics + + + | Address | [address] | | | [place] [address] | + + + | Home Phone | | + + + | Preferred Language | Unknown | + + + | Marital Status | | + + + | Mormonism Affiliation | 1041 | + + + | Race | Unknown | + + + | Ethnic Group | Not or | + + + Author + + + | Author | [facility] | | | and [place] | + + + | Organization | [facility] | | | [...] Team Providers + +------+ + | Care Monogram Operator Name | Role | Phone | [...] | | | [address] [place] | [place] [address] | | | | | [place] [address] | | | | | | [phone] | | | +--------+ + + + [...] | 01/15/ | Office | Rheumatology | [place], | | | 2019 | Visit | | [address] | | | | | | [address] | | | | | | [place] [address] | | | | | | [phone] | | | | | | | | +--------+---------+ + + + documented as of this encounter Procedures + +--------+ + + + | Procedure Name | Priori | Date/Time | Associated Diagnosis | Comments | | | ty | | | | + +--------+ + + + | LYNDON DIGITAL | Routin | 11/18/2015 | | Results for this | | SCREENING BILATERAL | e | 12:00 AM | | procedure are in the | | | | PDT | | results section. | + +--------+ + + + documented in this encounter Results LYNDON Digital Screening Bilateral (11/18/2015 12:00 AM PDT) + + | Specimen [...]
--- OUTSIDE RECORDS SUMMARY | ~2020-01-02 | XMS | Encounter Summary ---
Demographics + + + | Address | [address] | | | [place] [address] | + + + | Home Phone | | + + + | Preferred Language | Unknown | + + + | Marital Status | | + + + | Restorationism Affiliation | [id number] | + + + | Race | Unknown | + + + | Ethnic Group | Not or | + + + Author + + + | Author | [facility] | | | and [place] | + + + | Organization | [facility] | | [...] Team Providers + +------+ + | Care Fleet Administrative Assistant Name | Role | Phone | + +------+ + | Jean Carlos Crowell PA-C | PCP | | + +------+ + Reason for Visit +---------+--------+ + | Reason | Onset | Comments | | | Date | | +---------+--------+ + | Results | 07/26/ | | | | 2020 | | +---------+--------+ + Encounter Details +--------+ + + + + | Date | Type | Department | Care Team | Description | +--------+ + + + + | 07/26/ | Telephone | [facility] | Tanya Brooks | Results | | 2019 | | RHEUMATOLOGY | [place]IL[place]IA [place] | | | | | INFUSION [address] | | | | | | [address] | | | | | | [place] | | | | | | [address] | | | | | | [phone] | | | +--------+ + + + [...] this encounter Miscellaneous Notes Telephone Encounter - Tanya Brooks RN - 08/02/2019 10:53 AM PDTCalled patient and i nformed of providers response. Patient verbalized understanding and had no further questions . elephone Encoun ter - Tanya Brooks RN - 08/01/2019 10:12 AM PDTCalled patient and left message to ca back. elephone Encounter - Jess Lester ARNP - 08/01/2019 10:06 AM PDTYes, please take sulfasala zine 1.5 g a day-this is 3 tablets and methotrexate 7 tablets once a weekElectronically sign ed by MALINDA Corbett at 08/01/2019 10:06 AM PDTTelephone Encounter - Tanya Brooks RN - 08/01/2019 9:39 AM PDTCalled patient and informed rx requested was filled. P dunia verbalized understanding and would like to know if now that she will be back on SSZ y ou still want her on the 7 tabs weekly of MTX. Please advise. elephone Encounter - Tanya Brooks RN - 07/27/2019 9:28 AM PDTPer YOVANI Hughes, patient states [facility] restocked their SSZ. Per last virtual visit note dated 07/17/19 "Stop sulfasalazine at this time, since sulfa salazine enteric-coated is not available Increase methotrexate to 17.5 mg once a week" Tereso pulido advise. ----- Message from Ellen Hensley sent at 07/27/2019 9:23 AM PDT ----- Contact: Patient Medication requested: Sulfasalazine Last fill: Last visit: 07/17/2019 Most recent labs (put date for cbc, cmp, esr): 05/21/2019 (If no labs, ask where had most recent labs done) Next appt date: 10/16/2019 ##Ask patient if they called their pharmacy: Yes or No Pharmacy patient wants it sent to: [facility] documented in thi s encounter Plan of Treatment +--------+---------+ + + + | Date | Type | Specialty | Care Team | Description | +--------+---------+ + + + | 01/15/ | Office | Rheumatology | [place], | | | 2019 | Visit | | [address] | | | | | | [address] | | | | | | [place] [address] | | | | | | [phone] | | | | | | | | +--------+---------+ + + + documented as of this encounter Visit Diagnoses Not on filedocumented in this encounter
--- OUTSIDE RECORDS SUMMARY | ~2020-01-02 | XMS | Encounter Summary ---
Demographics + + + | Address | [address] | | | [place] [address] | + + + | Home Phone | | + + + | Preferred Language | Unknown | + + + | Marital Status | | + + + | Confucianism Affiliation | CAT | + + + | Race | or | + + + | Ethnic Group | Not or | + + + Author + + + | Organization | Unknown | + + + | Address | Unknown | + + + | Phone | Unavailable | + + + Support + + +---------+ + | Name | Relationship | Address | Phone | + + +---------+ + | Giacomo [place] | ECON | Unknown | | + + +---------+ + Care Team Providers + +------+ + | Care Gate Person Name | Role | Phone | + +------+ + PCP | Unavailable | + +------+ + Encounter Details +--------+ + + + + | Date | Type | Department | Care Team | Description | +--------+ + + + + | 06/28/ | H&P-Transcr | | Physical, History | Hstry & Physical | | 2005 | ibed | | & | | +--------+ + + + + [...] + + documented as of this encounter H&P Notes Interface, Director Consumer In - 10/25/2004 1:16 AM PDT [id number] 06/28/2004 06/28/2004 [id number] ADRIANA ANA ROSA Date of Service: 06/28/2004 History Attending Physician: Jose L Joy M.D. Chief Complaint: Treatment for ARDS. History of Present Illness: This is a 48-year-old female status post, SULEMAN and BSO on June 23, 2004, with subsequent intraabdominal bleed with exploratory laparotomy showing small bleeders in the omentum which are tied of with partial omentectomy and approximately 1 liter blood loss during this procedure. The patient received a total of 6 units of packed red cells and her lowest hematocrit was 28.6 on June 24, 2004. On June 24, 2004, her O2 saturations are recorded as decreased into the mid 80s and subsequent decrease in ability to oxygenate with increasing bilateral ground-glass opacities on chest x-ray, requiring intubation on June 28, 2004, with decision to transfer to [facility]. Echocardiogram on June 24, 2004, showed normal LV function with normal valves and no pericardial effusion, per report listed in chart from outside hospital in [facility]. Review of Systems: Unobtainable as the patient is intubated and sedated. Past Medical History 1. Diabetes on Lantus. 2. Depression. 3. Status post SULEMAN and BSO on June 23, 2004, for a pelvic prolapse and stress urinary incontinence with subsequent intraabdominal GI bleed as well as ARDS development. Please see HPI for details. 4. Headaches. 5. Status post cholecystectomy. 6. Peptic ulcer disease. 7. Urinary incontinence. Medications: Outpatient medicines Paxil, Actos, metformin, Celebrex, Lantus, insulin. No doses are available at this time. Medication on transfer are not listed clearly, but she did receive Unasyn as well as dopamine on transfer. Family History: Significant in for heart disease in her grandparents, mother with diabetes. He has no known drug allergies. Personal/Social History: Significant for 1/2 pack per day of tobacco use, no alcohol or IV drug use. She is and lives in near [facility]. Physical Exam Vital Signs: Temperature 37.2, blood pressure is 100/50, heart rate is 100. She is on SIMV pressure support of 15, peak of 8, tidal volume 500, CVP is 10. She is sating in the mid 90s on the setting. General: She is sedated and intubated. HEENT: Pupils are equal, round, and reactive to light. Sclerae are anicteric. Heart: Regular with no murmurs. Pulmonary: Coarse breath sound bilaterally throughout. Abdomen: Obese, soft with positive bowel sounds. She has a well-healed abdominal scars which is clean, dry, and intact. Extremities: Trace edema bilaterally, warm, and well perfused. Neurologic: Heavily sedated. Skin: Right I-J clean, dry, and intact and no rashes. Laboratory data: White count 18.7, hematocrit 30, platelets 370, MCV 89, her lowest hematocrit was 28 on June 24, 2004, and her baseline is 44, prior to her surgery. Differential is 92% neutrophils, 4% lymphocytes, 3% monocytes. INR 1.14, sodium 139, potassium 4.4, chloride 102, bicarbonate 26, BUN 7, and creatinine 0.7. Her creatinine did bump to 1.2 on June 23, 2004. Glucose 238, calcium 8.1, magnesium 2.4, phosphorous 4.1, alkaline phosphatase 170, total bilirubin 1.0, albumin 2.1, ketones 15, troponin 0.06. EKG shows normal sinus rhythm with heart rate 84. She has good R-wave progression and no ST changes. Sputum culture shows no growth today from June 24, 2004. Blood cultures x2 from June 25, 2004, shows no growth to date x2. This was done when she was on Unasyn, troponin is 0.06, troponin I at outside hospital on June 26, 2004, is 0.03 and 0.4 both negative. ABG prior to her intubation on June 26, 2004, is 7.40, PCO2 42, PO2 60, bicarbonate 26, O2 saturation is 90%, UA from June 25, 2004, is negative. Portable chest films shows bilateral edema, noncardiogenic versus cardiogenic. Impression: This is a 48-year-old female status post total abdominal hysterectomy and bilateral salpingooophorectomy on June 23, 2004, status post repeat exploratory laparotomy for intraabdominal bleed with subsequent ARDS (acute respiratory distress syndrome) versus transfusion related acute lung injury. Plan 1. Neurologically, she is sedated. 2. Cardiovascular, blood pressure is stable, no evidence of sepsis, currently. Echocardiogram is normal at the outside hospital. EKG is without evidence of ischemia and troponins are negative. 3. Pulmonary edema/ARDS. She has no evidence of cardiac dysfunction at the outside hospital on her echocardiogram or EKG. Likely with ARDS question whether secondary to transfusion. Sepsis is also possible, although currently without evidence of sepsis. I plan to place her on arginine protocol with goal tidal volume approximately 3:30 for her gender, height, and weight; plan to attempt diuresis. 4. GI status post SULEMAN-BSO with intraabdominal bleed and repair. Hematocrit is stable post-exploratory laparotomy. Plan to call [facility] to evaluate wound site and for any followup needed. Plan to start tube feed when stabilized. 5. Renal. No acute issues with good urine output. 6. Infectious disease. The patient is afebrile and hemodynamically stable. Blood cultures are pending. The patient is at risk for abdominal infection. She has no evidence of pulmonary infection on chest film, plan to hold off on antibiotics for now given her stability, and we will watch for now. 7. Endocrine. Insulin drip with history of diabetes. 8. Prophylaxis of subcutaneous heparin and ranitidine. 9. Code status is full. 10. Access is right I-J from outside hospital. We will staff with Dr. Joy. Lourdes Parker M.D. Jose L Joy M.D. / DOLLY [id number] / [id number] / [id number] / documented i n this encounter Plan of Treatment Not on filedocumented as of this encounter Visit Diagnoses Not on filedocumented in this encounter"
--- OUTSIDE RECORDS SUMMARY | ~2020-01-02 | XMS | Encounter Summary ---
Demographics + + + | Address | [address] | | | [place] [address] | + + + | Home Phone | | + + + | Preferred Language | Unknown | + + + | Marital Status | | + + + | Cheondoism Affiliation | 1041 | + + + | Race | Unknown | + + + | Ethnic Group | Not or | + + + Author + + + | Author | [facility] | | | and [place] | + + + | Organization | [facility] | | [...] Team Providers + +------+ + | Care General Manager Land Department Name | Role | Phone | + +------+ + | Jean Carlos Crowell PA-C | PCP | | + +------+ + Encounter Details +--------+ + + + + | Date | Type | Department | Care Team | Description | +--------+ + + + + | 07/16/ | Virtual | [facility] | Alyssamarielos, | Rheumatoid arthritis | | 2019 | Office | RHEUMATOLOGY [address] | [address] | of multiple sites | | | Visit | [address] | [address] | with negative | | | | [place], [place] | [facility] [place] [address] | rheumatoid factor | | | | [address] | [phone] | ([facility]); High risk | | | | [phone] | | medication use | +--------+ + + + + Social [...] + + documented as of this encounter Patient Instructions Patient Instructions Cristel Castaneda, Back Pad Inspector - 07/17/2019 8:00 AM PDTWe hope that you have experienced exceptional care today and that you found our service to be court eous and helpful. If you have any questions or need medication refills you can send us a message/request delbert Gonzalez or call our office at [phone]. To reach my MA-C type extension [phone]. If you are unable to reach a nurse during clinic hours, please leave a detailed message. We check our messages often and return calls in a timely manner during clinic hours. Orders for labs or imaging: Please remember that Jess PETTY will only call you if something of concern needs to be addressed, otherwise all result will be discussed at your next office visit. You can also look at your results on [facility]. If you are experiencing an emergency, please call 911 documented in this encounter Progress Notes Jess Lester ARNP - 07/17/2019 8:00 AM PDTFormatting of this note might be diffe rent from the original. Subjective: Patient ID:Shiloh Granado a 63 y.o.female. Reason for visit: Rheumatoid Arthritis Here forFollow up Rheumatological History Patient was diagnosed in 2012 with an initial presentation of + Scl 70, joint stiffness Serology: Positive DAYNA titer, Positive antinuclear autoantibodies Scl 70, neg centromere an d Negative RF Pertinent Imaging:OA changes, neg. erosionsto H/F 2017, CXR 2013 - neg HPI Consent: Patient, Shiloh [place] has verbally and independently [facility] on 07/17/2019 and consents to receive care by Telephone Best phone number for contact and follow [phone], initiated [phone], ended [phone] Is it okay to leave a message if are unable to reach you? Yes Last visit:05/21/2019 Changes in overall health since last visit: A new hernia was found, and this was most likel y what was causing the pain below the left breast. No surgery recommended at this time. e will trial a hernia belt Main Concern: RA-increasing joint pain affecting right wrist, right ankle and bilateral roxanna ulders. Has been off sulfasalazine enteric-coated for approximately 4 to 5 days. She did t rial sulfasalazine without coating and reports severe GI symptoms, therefore she stopped sul fasalazine. She inquires what other medication can be used for treatment of her joint symptoms. Denies swelling or a.m. stiffness Denies joint swelling, AM stiffness > 30 minutes, fevers, illness, infection, rashes, oral ulcers, chest pain, SOB or abdominal pain Location: Right wrist right ankle and bilateral shoulders Quality: ache Severity: moderate Duration: 4 5days Timing:Morning>Evening Aggravated by:rest Relieved by:Light activity Tried and failed oral DMARDs include: Plaquenil (Pt reports allergy)., Arava( diarrhea, inf ection) MTX was avoided since she reported SOB. 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 Past Medical History: Diagnosis Date Anemia Autoimmune disease (HCC) Bronchitis Carpal tunnel syndrome, right upper limb Chronic kidney disease Chronic kidney disease Chronic pain of right wrist 08/09/2017 Compression fracture of thoracic vertebra (HCC) 10/18/2013 COPD (chronic obstructive pulmonary disease) ([facility]) Depression Diabetes mellitus (HCC) Diabetes mellitus, type 2 (HCC) Dyshidrosis Fatigue Fibromyalgia GERD (gastroesophageal reflux disease) Gout Hernia Hypercholesterolemia Hyperlipidemia Hyperpotassemia Hypertension Hypertension Hyposmolality and/or hyponatremia Infection following a procedure, initial encounter Migraine headache Muscle mass left axilla Neuropathy Feet Osteoarthritis Osteoarthritis Osteoporosis 10/18/2013 Other fall from one level to another, initial encounter Other intraarticular fracture of lower end of right radius, initial encounter for close d fracture Panniculitis Peptic ulcer disease Poor circulation Rheumatoid arthritis(714.0) S/P wrist surgery 12/11 5 pins put in Scleroderma ([facility]) Sleep apnea no CPAP Sleep apnea no CPAP Thoracic back pain 10/18/2013 Thyroid disorder Vitamin D deficiency Review of Systems Constitutional: Negative for fatigue and fever. HENT: Negative for mouth sores. Eyes: Negative for pain and redness. Respiratory: Negative for cough and shortness of breath. Cardiovascular: Negative for chest pain. Gastrointestinal: Negative for abdominal pain and blood in stool. Genitourinary: Negative for dysuria and hematuria. Musculoskeletal: Negative for arthralgias (stable) and joint swelling. Skin: Negative for rash. Neurological: Negative for numbness and headaches. Psychiatric/Behavioral: The patient is not nervous/anxious. I, Jess PETTY, reviewed the above ROS, all other systems are reviewed and nega tive Objective: There were no vitals taken for this visit. Physical Exam Pulmonary: Comments: No audible respiratory wheezing or distress noted Musculoskeletal: Comments: Reports joint pain, no swelling or stiffness in the right wrist, right ankle a nd bilateral shoulders Neurological: Mental Status: She is alert. Psychiatric: Behavior: Behavior is cooperative. Labs reviewed in [facility] 05/21/2019 2019hep b/c neg. 09/11 chest xray- nodule in L upper lobe- unchanged Reviewed chart notes, labs and imaging form other provider(s) since the last visit. Assessment and Plan: Visit Diagnoses and Associated Orders: I spent a total of 15 minutes of Mod complexity counseling with patient and/or family. Rheumatoid arthritis of multiple sites with negative rheumatoid factor (HCC) Assessment & Plan: Initially diagnosed with RA 2012, +DAYNA, +SCL-70, Neg. RF, neg centromere. 2018- x-rays H/F- neg.erosions Symptoms reported today are suggestive of active RA, possibly with overlap of OA. Symptoms may be active due to inability to obtain sulfasalazine EC from pharmacy due to a supply iss ue. Due to side effects she is not able to take sulfasalazine without EC. The risk and benefit of treatment options were discussed with her today. 1. Stop sulfasalazine at this time, since sulfasalazine enteric-coated is not available 2. Increase methotrexate to 17.5 mg once a week 3. Update labs-we will mail these to her so she can have these completed in 4 to 6 weeks a [facility] 3-4 months Orders: - Comprehensive Metabolic Panel; Future; Expected date: 08/13/2019 - C-Reactive Protein; Future; Expected date: 08/13/2019 - Sedimentation Rate; Future; Expected date: 08/13/2019 - CBC with Differential; Future; Expected date: 08/13/2019 High risk medication use Assessment & Plan: Update labs in 4-6 weeks and will mail labs to her. continue to monitor closely while on DMARD and/or biologic medication. Counseled regardin g medication compliance as well as potential toxicities with medications such as cytopenias, liver abnormalities and risks for infection, and the need for routine blood work monitoring . Orders: - Comprehensive Metabolic Panel; Future; Expected date: 08/13/2019 - C-Reactive Protein; Future; Expected date: 08/13/2019 - Sedimentation Rate; Future; Expected date: 08/13/2019 - CBC with Differential; Future; Expected date: 08/13/2019 Other orders - methotrexate 2.5 mg tablet; Take 7 tablets by mouth Once a week. Indications: Rheumat oid Arthritis Dispense: 84 tablet; Refill: 0 Risks and benefits of a treatment plan were explained to patient. Patient will follow up with their primary care physician in regards to non-rheumatological symptoms listed under review of systems. Patient was advised to contact our office if there are any change in their symptoms. This document has been prepared with [employer] voice recognition system. The possibility of "s ound alike" senior software test engineer errors, and additions, or deletions may occur. If there is any que stion with respect to clarity of the message being conveyed, please contact me directly for clarification. documented in this encounter Miscellaneous Notes Assessment & Plan Note - Jess Lester ARNP - 07/16/2019 11:52 AM PDTAssociated Pr oblem(s): High risk medication useUpdate labs in 4-6 weeks and will mail labs to her. continue to monitor closely while on DMARD and/or biologic medication. Counseled regardin g medication compliance as well as potential toxicities with medications such as cytopenias, liver abnormalities and risks for infection, and the need for routine blood work monitoring . ssessment & Plan Note - Jess Lester ARNP - 07/16/2019 11:52 AM PDTAssociated Problem(s): Rheu matoid arthritis of multiple sites with negative rheumatoid factor (HCC)Initially diagnosed with RA 2012, +DAYNA, +SCL-70, Neg. RF, neg centromere. 2018- x-rays H/F- neg.erosions Symptoms reported today are suggestive of active RA, possibly with overlap of OA. Symptoms may be active due to inability to obtain sulfasalazine EC from pharmacy due to a supply iss ue. Due to side effects she is not able to take sulfasalazine without EC. The risk and benefit of treatment options were discussed with her today. 1. Stop sulfasalazine at this time, since sulfasalazine enteric-coated is not available 2. Increase methotrexate to 17.5 mg once a week 3. Update labs-we will mail these to her so she can have these completed in 4 to 6 weeks [facility] RTC 3-4 months Tdocumented in this encounter Plan of Treatment +--------+---------+ + + + | Date | Type | Specialty | Care Team | Description | +--------+---------+ + + + | 01/15/ | Office | Rheumatology | [place], | | 2019 | Visit | | [address] | | | | | | [address] | | | | | | [place] [address] | | | | | | [phone] | | | | | | | | +--------+---------+ + + + + +------+--------+ + + | Name | Type | Priori | Associated Diagnoses | Order Schedule | | | | ty | | | + +------+--------+ + + | Comprehensive | Lab | Routin | Rheumatoid | Expected: | | Metabolic Panel | | e | arthritis of | 08/13/2019, Expires: | | | | | multiple sites with | 07/16/2020 | | | | | negative rheumatoid | | | | | | factor (HCC) High | | | | | | risk medication use | | + +------+--------+ + + | C-Reactive Protein | Lab | Routin | Rheumatoid | Expected: | | | | e | arthritis of | 08/13/2019, Expires: | | | | | multiple sites with | 07/16/2020 | | | | | negative rheumatoid | | | | | | factor (HCC) High | | | | | | risk medication use | | + +------+--------+ + + | Sedimentation Rate | Lab | Routin | Rheumatoid | Expected: | | | | e | arthritis of | 08/13/2019, Expires: | | | | | multiple sites with | 07/16/2020 | | | | | negative rheumatoid | | | | | | factor (HCC) High | | | | | | risk medication use | | + +------+--------+ + + | CBC with | Lab | Routin | Rheumatoid | Expected: | | Differential | | e | arthritis of | 08/13/2019, Expires: | | | | | multiple sites with | 07/16/2020 | | | | | negative rheumatoid | | | | | | factor (HCC) High | | | | | | risk medication use | | + +------+--------+ + + documented as of this encounter Visit Diagnoses + + | Diagnosis | + + | Rheumatoid arthritis of multiple sites with negative rheumatoid factor (HCC) | + + | High risk medication use Encounter for long-term (current) use of other medications | + + documented in this encounter
--- OUTSIDE RECORDS SUMMARY | ~2020-01-02 | XMS | Encounter Summary ---
Demographics + + + | Address | [address] | | | [place] [address] | + + + | Home Phone | | + + + | Preferred Language | Unknown | + + + | Marital Status | | + + + | Taoist Affiliation | 1041 | + + + | Race | Unknown | + + + | Ethnic Group | Not or | + + + Author + + + | Author | [facility] | | | and [place] | + + + | Organization | [facility] | | | [...] Team Providers + +------+ + | Care Logging Supervisor Name | Role | Phone | + +------+ + | Jean Carlos Crowell PA-C | PCP | | + +------+ + Encounter Details +--------+ + + + + | Date | Type | Department | Care Team | Description | +--------+ + + + + | 10/25/ | Abstract | [facility] | Oswaldo Munoz, | | | 2016 | | REHABILITATION | [address] | | | | | MEDICINE [address] | [address], | | | | | [address] [place] | [place] [address] | | | | | [place] [address] | [phone] | | | | | [phone] | | | +--------+ + + + [...] 2019 | Visit | | [address] | | | | | | [address] | | | | | | [place] [address] | | | | | | [phone] | | | | | | | | +--------+---------+ + + + documented as of this encounter Visit Diagnoses Not on filedocumented in this encounter"
--- OUTSIDE RECORDS SUMMARY | ~2020-01-02 | XMS | Encounter Summary ---
Demographics + + + | Address | [address] | | | [place] [address] | + + + | Home Phone | | + + + | Preferred Language | Unknown | + + + | Marital Status | | + + + | Adventist Affiliation | 1041 | + + + | Race | Unknown | + + + | Ethnic Group | Not or | + + + Author + + + | Author | [facility] | | | and [place] | + + + | Organization | [facility] | | | [...] Team Providers + +------+ + | Care Credit Union Examiner Name | Role | Phone | + +------+ + | Jean Carlos Crowell PA-C | PCP | | + +------+ + Encounter Details +--------+ + + + + | Date | Type | Department | Care Team | Description | +--------+ + + + + | 12/08/ | Orders Only | [facility] | Naseem Umanzor, | | | 2017 | | MED CTR PROVIDER | [address] | | | | | SURGICAL [address] | [place], [place] | | | | | [place], | [address] | | | | | [place] [address] | | | | | | [phone] | | | +--------+ + + + [...] | | 2020 | Visit | | [address] | | | | | | [address] | | | | | | [place] [address] | | | | | | [phone] | | | | | | | | +--------+---------+ + + + documented as of this encounter Visit Diagnoses Not on filedocumented in this encounter"
--- OUTSIDE RECORDS SUMMARY | ~2020-01-02 | XMS | Encounter Summary ---
Demographics + + + | Address | [address] | | | [place] [address] | + + + | Home Phone | | + + + | Preferred Language | Unknown | + + + | Marital Status | | + + + | Orthodox Affiliation | CAT | + + + | Race | or | + + + | Ethnic Group | Not or | + + + Author + + + | Author | [facility] | + + + | Organization | [facility] | + + + | Address | Unknown | + + + | Phone | Unavailable | + + + Support + + +---------+ + | Name | Relationship | Address | Phone | + + +---------+ + | Giacomo [place] | ECON | Unknown | | + + +---------+ + Care Team Providers + +------+ + | Care Physician Specialist Name | Role | Phone | + +------+ + | Kendall Ruiz MD | PCP | | + +------+ + Encounter Details +--------+---------+ + + + | Date | Type | Department | Care Team | Description | +--------+---------+ + + + | 12/23/ | Office | [facility] | [facility] [place] | | 2008 | Visit | Occupational Therapy | [address] | Tenosynovitis | | | | Services at [facility] | [facility] | (Primary Dx) | | | | [facility] [address] [place], [place] | | | | | [facility] | [address] | | | | | Health and Healing, | | | | | | [address] | | | | | | Floor [place], [place] | | | | | | [address] | | | | | | [phone] | | | +--------+---------+ + + + Social History + + + +--------+------+ | Tobacco Use | Types | Packs/Day | Years | Date | | | | | Used | | + + + +--------+------+ | Current Every Day | Cigarettes | 0.5 | 25 | | | Smoker | | | | | + + + +--------+------+ + + +---------+ + | Alcohol Use | Drinks/Week | oz/Week | Comments | + + +---------+ + | Not Asked | | | | + + +---------+ + + + + | Sex Assigned at | Date Recorded | | | | + + + | Not on file | | + + + documented as of this encounter Progress Notes Gildardo Mcintosh - 12/23/2008 4:39 PM PDTFormatting of this note might be different from tess torres. [id number] ANA ROSA [place] Date of : 1955 Start of care: 12/23/2008 Date of onset: 01/02/08 Referring/Attending Practitioner: Avinash Okeefe . Primary/Referral Diagnosis/ICD-9: Encounter Diagnoses Code Name Primary? Qualifier 727.04L De Quervain's Tenosynovitis Yes Insurance: Payor: [employer] Plan: [employer] Product Type: PPO Service period from: 12/23/2008 to: 03/24/09 Number visits used/authorized: 04/04 [facility] OCCUPATIONAL THERAPY INITIAL EVALUATION HAND INITIAL EVALUATION Name: Ana Rosa [place] MR# [id number] SUBJECTIVE: History of Presenting Problem: Ana Rosa [place] is a 53 y.o. female who presents with pain on r adial side of thumb after fracturing her right wrist, treated non-op in cast. 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 Prior/concurrent treatment: splinting Med Hx: Ana Rosa has a past medical history of DM w/o Complication Type II. Meds: Current outpatient prescriptions: ASPIRIN ORAL, Take by mouth., Disp: , Rfl: CELECOXIB (CELEBREX ORAL), Take by mouth., Disp: , Rfl: EXENATIDE (BYETTA SUBQ), Inject under the skin (SUBC)., Disp: , Rfl: gemfibrozil 600 mg Oral Tablet, Take 600 mg by mouth two times daily., Disp: , Rfl: hydrocodone-acetaminophen 7.5-750 mg Oral Tablet, Take 1 Tab by mouth as needed. Not to exc eed 5 tablets per any 24 hour period. (Not to exceed 4000 mg of acetaminophen from all produ cts per 24 hour period.) , Disp: , Rfl: INSULIN ASPART SUBQ, Inject under the skin (SUBC). 30-50 sliding scale , Disp: , Rfl: INSULIN GLARGINE,HUM.REC.ANLOG (LANTUS SUBQ), Inject 80 Units under the skin (SUBC)., Disp: , Rfl: losartan (COZAAR) 25 mg Oral Tablet, Take 25 mg by mouth once daily., Disp: , Rfl: METFORMIN HCL (METFORMIN ORAL), Take by mouth., Disp: , Rfl: omeprazole 20 mg Oral Capsule, Delayed Release(E.C.), Take 20 mg by mouth once daily., Disp : , Rfl: oxycodone, immediate release, 5 mg Oral Tablet, Take by mouth. Take one to three by mouth as needed for pain, Disp: 60, Rfl: 0 PAROXETINE HCL (PAXIL ORAL), Take 40 mg by mouth., Disp: , Rfl: Precaution/special problems: TFCC tear, per md note Pain level (0-10): Patient reports a pain level of today. 8/10 at rest: 4/10 Patient's Goals: reduce pain OBJECTIVE: CLINICAL DATA: Hand Dominance: right Involved Side: right EDEMA: pt. Reports radial side of wrist and thumb swell. RANGE OF MOTION: Wrist flexion 30 Wrist extension 60 Cmc extension 36 Palmar abduction 45 Thumb opposition to small finger tip SENSATION: intact, though pt. Does report some sensitivity over radial styloid TREATMENT TODAY:Evaluation . ASSESSMENT: Ana Rosa requires services that can be safely and effectively performed only by a qualified erapist to address the following problems and achieve the following goals: Treatment diagnosis: Encounter Diagnoses Code Name Primary? Qualifier 727.04L De Quervain's Tenosynovitis Yes SHORT-TERM GOALS: discussed with Ana Rosa smith in 1 weeks: pt. Will have improved knowledge of procedure, and precations. Pt. Will be instructed with postoperative plan of care LONG-TERM GOALS: discussed with sarah Matamoros in 8 weeks: Pt. Will have full use of hand with 0/10 pain on visual analog scale. PLAN OF CARE: Follow up with MD. Frequency/Duration: 1x prior to surgery, f/u after surture removal for home program, desen sitization and scar matuation Treatment began: 145 Treatment ended: 215 This note is to serve as the discharge summary if Ana Rosa fails to attend further Occupationa l Therapy appointments or contact the therapist regarding any change in their status. GILDARDO MCINTOSH, OT [facility] REH[facility]ILIT[facility] SERVICES AND HAND THERAPY [address] [place] Mailcode: [address] [facility] [address] documented in this encoun ter Plan of Treatment + + +--------+ + + | Name | Type | Priori | Associated Diagnoses | Order Schedule | | | | ty | | | + + +--------+ + + | CO OCCUPATIONAL | Procedures | Routin | De Quervain's | Ordered: 12/23/2008 | | THERAPY EVALUATION | | e | Tenosynovitis | | + + +--------+ + + documented as of this encounter Visit Diagnoses + + | Diagnosis | + + | De Josh's tenosynovitis - Primary Radial styloid tenosynovitis | + + documented in this encounter"
--- OUTSIDE RECORDS SUMMARY | ~2020-01-02 | XMS | Encounter Summary ---
Demographics + + + | Address | [address] | | | [place] [address] | + + + | Home Phone | | + + + | Preferred Language | Unknown | + + + | Marital Status | | + + + | Jain Affiliation | [id number] | + + + | Race | Unknown | + + + | Ethnic Group | Not or | + + + Author + + + | Author | [facility] | | | and [place] | + + + | Organization | [facility] | | | [...] Team Providers + +------+ + | Care Supervisor [employer] Name | Role | Phone | + +------+ + | Jean Carlos Toro PA-C | PCP | | + +------+ [...] | | | | | | | left eye | | | | | | | Age-related | | | | | | | nuclear | | | | | | | cataract of | | | | | | | left eye | | | | | | | [H25.12] | | | | | | | [...] | +--------+ + + + + | 12/09/ | [facility] | [facility] | Lyubov Howe, | Nuclear sclerotic | | 2017 | Encounter | MED [facility] | MD [address] | cataract of left eye | | | | [address] | [place] | (Primary Dx) | | | | [place] | [id number] | | | | | [address] | | | | | | [phone] | | | +--------+ + + + [...] + + + | Blood Pressure | 108/65 | 12/09/2016 10:30 AM | | | | | PDT | | + + + + + | Pulse | 82 | 12/09/2016 10:30 AM | | | | | PDT | | + + + + + | Temperature | 36.2 C (97.2 F) | 12/09/2016 10:16 AM | | | | | PDT | | + + + + + | Respiratory Rate | 14 | 12/09/2016 10:30 AM | | | | | PDT | | + + + + + | Oxygen Saturation | 98% | 12/09/2016 10:30 AM | | | | | PDT | | + + + + + | Inhaled Oxygen | - | - | | | Concentration | | | | + + + + + | Weight | 91.2 kg (201 lb) | 12/09/2016 7:21 AM | | | | | PDT | | + + + + + | Height | 154.9 cm (5' 1") | 12/09/2016 7:21 AM | | | | | PDT | | + + + + + | Body Mass Index | 37.98 | 12/09/2016 7:21 AM | | | | | PDT | | + + + + + documented in this encounter Discharge Instructions Instructions Yohana Ybarra RN - 12/09/2016Formatting of this note might be different f rom the original. Procedural Sedation Procedural sedation is medicine to ease discomfort, pain, and anxiety during a procedure. T he medicine is often given through an IV (intravenous) line in your arm or hand. In some patsy es, the medicine may be taken by mouth or inhaled. While you are under sedation, you will li radha be awake. But you may not remember anything afterward. Why procedural sedation is used Sedation is used for many types of procedures. The goal is to reduce pain, anxiety, and str essful memories of a procedure. It can also help your healthcare provider treat you. For exa mple, having a broken bone fixed may be easier if you feel relaxed. Procedural sedation is used only for short, basic procedures. It is not used for complex santos rgeries. Some procedures that use this type of sedation include: Dental surgery Breast biopsy, to take a sample of breast tissue Endoscopy, to look at gastrointestinal problems Bronchoscopy, to check for lung problems Bone or joint realignment, to fix a broken bone or dislocated joint Minor foot or skin surgery Electrical cardioversion, to restore a normal heart rhythm Lumbar puncture, to assess neurological disease Risks of procedural sedation Procedural sedation has some risks and possible side effects, such as: Headache Nausea and vomiting Unpleasant memory of the procedure Lowered rate of breathing Changes in heart rate and blood pressure (rare) Inhalation of stomach contents into your lungs (rare) Side effects will likely go away shortly after the procedure. Your healthcare team will jai ch your heart rate and breathing during your sedation. This is to help prevent problems. Your own risks may vary based on your age and your overall health. They also depend on the type of sedation you are given. Talk with your healthcare provider about the risks that appl y most to you. Getting ready for procedural sedation Talk with your healthcare provider about how to get ready for your procedure. Tell him or h er about all the medicines you take. This includes disu-hjk-odcydut medicines such as ibupro fen. It also includes vitamins, herbs, and other supplements. You may need to stop taking so me medicines before the procedure, such as blood thinners and aspirin. If you smoke, you roxanna uld stop to lessen the chance of a lung issue. Talk with your healthcare provider if you nee d help to stop smoking. Tell your healthcare provider if you: Have had any problems in the past with sedation or anesthesia Have had any recent changes in your health, such as an infection or fever Are or think you may be Also be sure to: Ask a family member or friend to take you home after the procedure. You can t drive on the day you receive sedation. Not eat or drink after midnight the night before your procedure, if advised. Not plan on making any important decisions, such as financial or legal, for the day afte r you receive the sedation. Follow all other instructions from your healthcare provider. During your procedural sedation You may have your procedure in a hospital or a medical clinic. Sedation is done by a traine d healthcare provider. In general, you can expect the following: You will be given medicine through an IV line in your arm or hand. Or you may receive a shot. The medicine may also be given by mouth. Or you may inhale it through a mask. If you receive medicine through an IV, you may feel the effects very quickly. You will s tart to feel relaxed and drowsy. During the procedure, your heart rate, breathing, and blood pressure will be closely jai ched. Your breathing and blood pressure may decrease a little. But you will likely not need help with your breathing. You may receive a little extra oxygen through a mask or through so me soft plastic prongs underneath your nose. You will probably be awake the entire time. If you do fall asleep, you should be easy to wake up, if needed. You should feel little or no pain. When your procedure is over, the sedative medicine will be stopped. After your procedural sedation You will begin to feel more awake and aware. But you will likely be drowsy for a while afte rward. You will be closely watched as you become more alert. You may have a faint memory of the procedure. Or you may not remember it at all. You should be able to return home within an hour or two after your procedure. Plan to have someone stay with you for a few hours. Side effects such as headache and nausea may go away quickly. Tell your healthcare provider if they continue. Don t drive or make any important decisions for at least 24 hours. Be sure to follow all after-care instructions. When to call your healthcare provider Have someone call your healthcare provider right away if you have any of these: Drowsiness that gets worse Weakness or dizziness that gets worse Repeated vomiting You can t be awakened Severe or ongoing pain from the procedure, not relieved by the pain medicine Date Last Reviewed: 04/28/201619993846-0497 The [employer]. [address] [place] [address], [place] [address]. All righ ts reserved. This information is not intended as a substitute for professional medical care. Always follow your healthcare professional's instructions. documented in this encounter Medications at Time of Discharge [...] | | 0 | | | | [address] units CAPS | | | | | [...] NOVOLOG FLEXPEN | | | 0 | 09/30/19 | | | 100 UNIT/ML | | [...] + + + +---------+ + + | acetaminophen | Take 650 mg by mouth | | 0 | | | | (TYLENOL) 325 mg | every 4 hours as | | | | 9 | | tablet | needed for Pain. | | | | | + + + +---------+ + + | calcium-vitamin D | Take by mouth. | | 0 | | | | (CALCIUM 600+D3) 600 | | | | | 0 | | mg-400 units per | | | | | | | tablet | | | | | | + + + +---------+ + + | cholecalciferol | Take 1,000 Units by | | 0 | | | | (VITAMIN D-3) 5,000 | mouth Daily. | | | | 9 | | units/mL liquid | | | | | | + + + +---------+ + + | clotrimazole | Place 1 applicator | | 0 | 03/11/20 | | | (GYNE-LOTRIMIN) 1% | vaginally daily. | | | 14 | 9 | | vaginal cream | | | | | | + + + +---------+ + + | clotrimazole | Apply topically 2 | | 0 | | | | (LOTRIMIN) 1% cream | times daily. | | | | 9 | + + + +---------+ + + | ferrous sulfate | Take 1 tablet by | | 0 | 03/11/20 | | | 324 (65 Fe) MG EC | mouth 3 (three) | | | 14 | 9 | | tablet | times daily with | | | | | | | meals. | | | | | + + + +---------+ + + | ferrous sulfate | Take by mouth. | | 0 | | | | 325 mg tablet | | | | | 9 | + + + +---------+ + + | hydrophilic | Apply topically as | | 0 | | | | ointment | needed. | | | | 9 | + + + +---------+ + + | hydroxychloroquine | Take by mouth | | 0 | | | | (PLAQUENIL) 200 mg | Daily. | | | | 9 | | tablet | | | | | | + + + +---------+ + + | insulin aspart | Inject under the | | 0 | | | | (NOVOLOG) 100 | skin 3 times daily | | | | 9 | | units/mL injection | (before meals). | | | | | | | Sliding scale | | | | | + + + +---------+ + + | levothyroxine | | | 0 | 09/30/19 | | | (SYNTHROID, | | | | 17 | 9 | | LEVOTHROID) 25 mcg | | | | | | | tablet | | | | | | + + + +---------+ + + | metformin | Take 1,000 mg by | | 0 | | | | (GLUCOPHAGE) 1000 MG | mouth 2 times daily | | | | 9 | | tablet | (with breakfast & | | | | | | | dinner). | | | | | + + + +---------+ + + | Mirabegron | Take by mouth Once | | 0 | | | | (MYRBETRIQ PO) | a week. | | | | 9 | + + + +---------+ + + | omeprazole | Take 20 mg by mouth | | 0 | | | | (PRILOSEC) 20 mg | every morning | | | | 0 | | capsule | (before breakfast). | | | | | + + + +---------+ + + | omeprazole | | | 0 | 09/30/19 | | | (PRILOSEC) 40 MG | | | | 17 | 9 | | capsule | | | | | | + + + +---------+ + + | paroxetine (PAXIL) | Take 40 mg by mouth | | 0 | | | | 40 MG tablet | every morning. | | | | 9 | + + + +---------+ + + | | Take by mouth. | | 0 | | | | sulfamethoxazole-tri | | | | | 9 | | methoprim (BACTRIM | | | | | | | DS) 800-160 mg per | | | | | | | tablet | | | | | | + + + +---------+ + + | sulfaSALAzine | Take 500 mg by mouth | | 0 | | | | (AZULFIDINE) 500 mg | 4 times daily. | | | | 9 | | tablet | | | | | | + + + +---------+ + + documented as of this encounter H&P Notes Lyubov Howe MD - 12/09/2016 8:39 AM PDTSURGICAL INTERIM HISTORY & PHYSICAL UPDATE Pt. Name/Age/: Ana Rosa [place] 61 y.o. 1955 Date of admission: 12/09/2016 The current H&P was reviewed. The patient was reexamined. Re-evaluation of the patient co nfirms the necessity for the scheduled procedure. Changes have occurred in the patient s condition since the H&P was performed less than 30 days ago that would be significant for th e planned course of treatment. These changes are as follows: Healing well from right carpal tunnel surgery with brace in place. Otherwise, unchanged. VERIFICATION OF CONSENT (PARQ) The patient was counseled regarding the procedure, its indications, risks, potential compli cations and alternatives. Any questions were answered. Consent was obtained. Electronically signed by: Lyubov Howe MD, 12/09/2016 8:39 [facility]ALTHElectronically signed by Lyubov Howe MD at 8:40 AM PDTLyubov Howe MD - 12/02/2016 9:34 AM PDT [facility] [address] [place] [address] HISTORY AND PHYSICAL LYUBOV HOWE MD Patient: ANA ROSA [place] Admitting: LYUBOV Elise CARLEY MR #: [id number] LOC: PT TYPE: Adm Date: : 1955 DATE: 12/02/2016 DATE OF PROCEDURE WILL BE: 12/09/2016 CHIEF COMPLAINT: Poor vision. HISTORY OF PRESENT ILLNESS: Ana Rosa is a 61-year-old female who is reporting blurry vision in her left eye. She is having difficulty seeing to drive, watch TV or movies, read, perfo rm detailed work, write checks or fill out forms, take part in sports or hobbies, and recog nize people when they are close due to her vision. She notes glare halos and rings around lights, difficulty with color perception, difficulty with depth perception and worsening o f her vision. She desires improved visual acuity and wants cataract extraction from her le ft eye. PAST MEDICAL HISTORY: Diabetes, arthritis, hypertension, hypothyroidism. FAMILY HISTORY: Heart disease, arthritis, cancer, hypertension, and diabetes. SOCIAL HISTORY: Denies alcohol and recreational drug use. Current every day smoker, abou t half a pack per day. PAST SURGICAL HISTORY: Rotator cuff repair, wrist fracture repair and cataract surgery of the right eye. REVIEW OF SYSTEMS: A 13-point review of systems positive for arthritis, otherwise negativ e. MEDICATIONS: Vitamin D3 supplement. Celecoxib. Metformin. Losartan. Hydrocodone/acetaminophen. Ferrous sulfate. Sulfasalazine. Omeprazole Victoza 2 pack. Levothyroxine. Insulin aspart and insulin Glargine. Aspirin. ALLERGIES: IBUPROFEN, LEVOFLOXACIN, ALENDRONATE, HYDROXYQUINOLINES. PHYSICAL EXAMINATION: NEURO: Oriented to time, place and person. Mood and affect appropriate. VITAL SIGNS: Blood pressure 110/65 with a pulse of 90. GENERAL: Well-developed and well-nourished. HEENT: Normocephalic, atraumatic. Best corrected visual acuity in the left eye in his 20 /80, and with glare testing drops to 20/150. Visual oropeza are full to finger counting mau aterally. Extraocular motility is full bilaterally. Pupils are equally round and reactive to light with no afferent pupillary defect. Anterior segment exam shows a normal healthy -appearing cornea. The anterior chamber is of moderate depth and quiet. Iris is normal. There is 1-2+ nuclear sclerosis, 2+ cortical changes, vacuoles and 1-2+ central posterior s ubcapsular cataract. Posterior segment exam shows a normal healthy-appearing optic nerve. There are scattered microaneurysms and rare intraretinal hemorrhages in the macula. There are rare intraretinal hemorrhages in the posterior retina and periphery. There is retinal artery attenuation. HEART: Regular rate and rhythm. LUNGS: Clear to auscultation bilaterally. ADMITTING IMPRESSION: 1. Visually significant cataract of the left eye. 2. Moderate nonproliferative diabetic retinopathy without macular edema. 3. Hypertensive retinopathy (grade 2). PLAN: Extracapsular cataract extraction using phacoemulsification, intraocular lens impla nt, left eye. This is to be done under monitored anesthesia care and supplemented with a r etrobulbar block. Discussed that posterior segment pathology may limit best corrected visu al acuity somewhat, although I do anticipate a substantial improvement. She expressed und erstanding and wishes to proceed as scheduled. LYUBOV HOWE MD Dictated by LYUBOV HOWE MD 12/02/2016 09:34:02 Transcribed on 12/02/2016 09:53:10 by so job# [id number] Confirmation #: [id number] cc: JEAN CARLOS TORO PAC documented in this encounter Miscellaneous Notes Op Note - Lyubov Howe MD - 12/09/2016 2:30 PM PDT [address] [id number] OPERATIVE REPORT LYUBOV HOWE MD Patient: ANA ROSA [place] Admitting: LYUBOV HOWE MR #: [id number] LOC: PT TYPE: Adm Date: 12/09/2016 : 1955 DESCRIPTION OF PROCEDURE: 12/09/2016 PREOPERATIVE DIAGNOSIS: Visually significant cataract of the left eye. POSTOPERATIVE DIAGNOSIS: Visually significant cataract of the left eye. NAME OF PROCEDURE: Extracapsular cataract extraction using phacoemulsification and implant ation of an intraocular lens, left eye. SURGEON: Lyubov Howe MD ANESTHESIA: Monitored anesthesia care supplemented by retrobulbar block. ESTIMATED BLOOD LOSS: Negligible. COMPLICATIONS: None. SUMMARY OF PROCEDURE: Risks, benefits, and alternatives were discussed with the patient, w ho wished to proceed with cataract surgery. Informed consent was freely obtained prior to p roceeding. The patient was taken to the operating room where anesthesia was initiated without complic ation. The patient was then prepped and draped in the usual sterile ophthalmic fashion and a microscope brought into position and adjusted. Initially a paracentesis incision was made , and the anterior chamber of the eye was filled with Viscoat. Next, a guarded blade was u sed to make an incision 0.35 mm deep and perpendicular to the corneal surface along the tem poral clear cornea. A keratome was then used to tunnel into the cornea and then angle down to enter the anterior chamber of the eye, forming a triplanar incision. A cystotome was the n used to initiate a rhexis, which was completed in a continuous curvilinear fashion using capsulorrhexis forceps. Using a hydrodissection canula, the lens nucleus was then hydrodis sected from the surrounding capsule. A phacoemulsification handpiece was then used to paula ve the lens nucleus using a 2-handed technique with a Javi lens chopper. The total cumula tive dispersive energy was 6.15. An irrigation and aspiration handpiece was then used to re move the lens cortex, and then gently [place] the capsular bag. Provisc was then used to inf late the capsular bag, and an FELICIA PCB00 lens with a power of 23.0 diopters was inserted in to the capsular bag and adjusted using a Sinskey hook. The irrigation and aspiration handpi shruthi was then used to remove the Provisc. Balanced salt solution was then used to hydrate th e wound and paracentesis edges and to adjust the volume and pressure of the eye until it w as at an appropriate level. Weck sponges were then used to confirm that these incisions wer e watertight. After confirming that they were watertight, a subconjunctival injection of ke nalog-10 and intracameral Vigamox were administered, the patient was undraped, anesthesia wa s reversed, and a patch was applied to the eye. The patient was taken to the recovery area in stable condition, where postop instructions and followup instructions were given. LYUBOV HOWE MD Dictated by LYUBOV HOWE MD 12/09/2016 14:30:53 Transcribed on 12/09/2016 14:52:47 by [facility] job# [id number] Confirmation #: [id number] cc: JEAN CARLOS TORO [facility] rief Op Note - Edw Lyubov lomas MD - 12/09/2016 10:12 AM PDT Brief Operative Note Ana Rosa [place] 61 y.o. female 1955 [id number] Proc. Date 12/09/2016 Preop Dx Age-related nuclear cataract of left eye [H25.12] Postop Dx same Procedure Left Cataract Extraction w/ Lens Implant (Left) Anesthesia Monitored anesthesia care supplemented by a retrobulbar block Surgeon Lyubov Howe MD - Primary [employer] EBL Minimal Findings Findings consistent with scheduled procedure. No other abnormalities found. Complications none Specimens * No specimens in log * Drains Electronically signed by: Lyubov Howe MD 12/09/2016 10:12 [facility] Lyubov Howe MD at 10:12 AM PDTdocumented in this encounter Plan of Treatment +--------+---------+ + + + | Date | Type | Specialty | Care Team | Description | +--------+---------+ + + + | 01/15/ | Office | Rheumatology | [place], | | | 2019 | Visit | | [address] | | | | | | [address] | | | | | | [place] [address] | | | | | | [phone] | | | | | | | | +--------+---------+ + + + documented as of this encounter Procedures + +--------+ + + + | Procedure Name | Priori | Date/Time | Associated Diagnosis | Comments | | | ty | | | | + +--------+ + + + | EXTRACTION CATARACT | | 12/09/2016 | Age-related | | | W/ OR W/O LENS | | 9:42 AM | nuclear cataract of | | | IMPLANT | | PDT | left eye | | + +--------+ + + + | POC GLUCOSE | Routin | 12/09/2016 | | Results for this | | | e | 8:22 AM | | procedure are in the | | | | PDT | | results section. | + +--------+ + + + documented in this encounter Results POC Glucose (12/09/2016 8:22 AM PDT) + +---------+ + + + | Component | Value | Ref Range | Performed | Pathologist | | | | | At | Signature | + +---------+ + + + | Glucose, | 127 (H) | 70 - 109 mg/dL | [facility] | [facility] | [facility] - | | | | | | [facility]ATORY | | + +---------+ + + + + + | Specimen | + + | Blood | + + + + + + + | Performing | Address | City/State/Zipcode | Phone Number | | Organization | | | | + + + + + | [facility] | [address] | [place] | [phone] | | 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 | + + documented in this encounter Administered Medications + +--------+ +--------+------+ + | Medication Order | MAR | Action | Dose | Rate | Site | | | Action | Date | | | | + +--------+ +--------+------+ + | apraclonidine (IOPIDINE) 1 % | Given | 12/10/19 | 1 drop | | Eye-Left | | ophthalmic solution 1 drop 1 | | 17 8:20 | | | | | drop, Left Eye, EVERY 10 MIN, | | AM PDT | | | | | First dose on [place] 12/09/16 at | | | | | | | 0815, For 2 doses, Pre-op | | | | | | + +--------+ +--------+------+ + +-------+ +--------+---+ + | Given | 12/10/19 | 1 drop | | Eye-Left | | | 17 8:11 | | | | | | AM PDT | | | | +-------+ +--------+---+ + +---+---+ | | | +---+---+ + +-------+ +--------+---+ + | cyclopentolate (CYCLOGYL) 1% | Given | 12/10/19 | 1 drop | | Eye-Left | | ophthalmic solution 1 drop 1 | | 17 8:30 | | | | | drop, Left Eye, EVERY 10 MIN PRN, | | AM PDT | | | | | prep eye for procedure, Starting | | | | | | | [facility] 12/09/16 at 0749, For 3 | | | | | | | doses, Only give 3rd dose 10 | | | | | | | minutes later if pupil is not | | | | | | | dilated at least 6mm, Pre-op | | | | | | + +-------+ +--------+---+ + +-------+ +--------+---+ + | Given | 12/10/19 | 1 drop | | Eye-Left | | | 17 8:19 | | | | | | AM PDT | | | | +-------+ +--------+---+ + | Given | 12/10/19 | 1 drop | | Eye-Left | | | 17 8:08 | | | | | | AM PDT | | | | +-------+ +--------+---+ + +---+---+ | | | +---+---+ + +-------+ +--------+---+ + | diclofenac (VOLTAREN) 0.1 % | Given | 12/10/19 | 1 drop | | Eye-Left | | ophthalmic solution 1 drop 1 | | 17 8:27 | | | | | drop, Left Eye, EVERY 30 MIN, | | AM PDT | | | | | First dose on [place] 12/09/16 at | | | | | | | 0815, For 4 doses, Use 1 drop | | | | | | | every 30 minutes beginning 2 | | | | | | | hours before surgery (total of 4 | | | | | | | drops)., Pre-op | | | | | | + +-------+ +--------+---+ + +-------+ +--------+---+ + | Given | 12/10/19 | 1 drop | | Eye-Left | | | 17 8:09 | | | | | | AM PDT | | | | +-------+ +--------+---+ + +---+---+ | | | +---+---+ + +---------+ +---+-------+ + | lactated ringers (LR) infusion | New Bag | 12/10/19 | | 100 | Left Arm | | at 10-100 mL/hr, Intravenous, | | 17 8:38 | | mL/hr | | | CONTINUOUS, Starting [place] 12/09/16 | | AM PDT | | | | | at 0815, TKO., Pre-op | | | | | | + +---------+ +---+-------+ + +---------+ +---+-------+ + | New Bag | 12/10/19 | | 100 | Left Arm | | | 17 8:22 | | mL/hr | | | | AM PDT | | | | +---------+ +---+-------+ + +---+---+ | | | +---+---+ + +-------+ +--------+---+ + | phenylephrine (AGUS-SYNEPHRINE) | Given | 12/10/19 | 1 drop | | Eye-Left | | 2.5% ophthalmic solution 1 drop | | 17 8:30 | | | | | 1 drop, Left Eye, EVERY 10 MIN | | AM PDT | | | | | PRN, prep eye for procedure, | | | | | | | Starting [facility] 12/09/16 at 0749, For | | | | | | | 3 doses, Only give 3rd dose 10 | | | | | | | minutes later if pupil is not | | | | | | | dilated at least 6mm, Pre-op | | | | | | + +-------+ +--------+---+ + +-------+ +--------+---+ + | Given | 12/10/19 | 1 drop | | Eye-Left | | | 17 8:19 | | | | | | AM PDT | | | | +-------+ +--------+---+ + | Given | 12/10/19 | 1 drop | | Eye-Left | | | 17 8:09 | | | | | | AM PDT | | | | +-------+ +--------+---+ + +---+---+ | | | +---+---+ + +-------+ +--------+---+ + | proparacaine (ALCAINE) 0.5% | Given | 12/10/19 | 1 drop | | Eye-Left | | ophthalmic solution 1 drop 1 | | 17 8:18 | | | | | drop, Left Eye, EVERY 10 MIN PRN, | | AM PDT | | | | | prep eye for procedure, Starting | | | | | | | [place] 12/09/16 at 0749, For 3 | | | | | | | doses, Only give 3rd dose 10 | | | | | | | minutes later if pupil is not | | | | | | | dilated at least 6mm, Pre-op | | | | | | + +-------+ +--------+---+ + +-------+ +--------+---+ + | Given | 12/10/19 | 1 drop | | Eye-Left | | | 17 8:08 | | | | | | AM PDT | | | | +-------+ +--------+---+ + +---+---+ | | | +---+---+ + +-------+ +--------+---+ + | tropicamide (MYDRIACYL) 1% | Given | 12/10/19 | 1 drop | | Eye-Left | | ophthalmic solution 1 drop 1 | | 17 8:30 | | | | | drop, Left Eye, EVERY 10 MIN PRN, | | AM PDT | | | | | prep eye for procedure, Starting | | | | | | | [place] 12/09/16 at 0749, For 3 | | | | | | | doses, Only give 3rd dose 10 | | | | | | | minutes later if pupil is not | | | | | | | dilated at least 6mm, Pre-op | | | | | | + +-------+ +--------+---+ + +-------+ +--------+---+ + | Given | 12/10/19 | 1 drop | | Eye-Left | | | 17 8:19 | | | | | | AM PDT | | | | +-------+ +--------+---+ + | Given | 12/10/19 | 1 drop | | | | | 17 8:08 | | | | | | AM PDT | | | | +-------+ +--------+---+ + +---+---+ | | | +---+---+ documented in this encounter
--- OUTSIDE RECORDS SUMMARY | ~2020-01-02 | XMS | Encounter Summary ---
Demographics + + + | Address | [address] | | | [place] [address] | + + + | Home Phone | | + + + | Preferred Language | Unknown | + + + | Marital Status | | + + + | Worship Affiliation | 1041 | + + + | Race | Unknown | + + + | Ethnic Group | Not or | + + + Author + + + | Author | [facility] | | | and [place] | + + + | Organization | [facility] | | | [...] Team Providers + +------+ + | Care Energy Audit Advisor Name | Role | Phone | + +------+ + | Jean Carlos Crowell PA-C | PCP | | + +------+ + Encounter Details +--------+ + + + + | Date | Type | Department | Care Team | Description | +--------+ + + + + | 03// | Imaging | [facility] | Provider, | | | 2019 | Exam | MED CTR EXTERNAL | [address] | | | | | IMAGING [address] | [address] | | | | | [address] | [place] [address] | | | | | [place] [address] | | | | | | [phone] | | | +--------+ + + + [...] 2020 | Visit | | [address] | | | | | | [address] | | | | | | [place] [address] | | | | | | [phone] | | | | | | | | +--------+---------+ + + + documented as of this encounter Procedures + +--------+ + + + | Procedure Name | Priori | Date/Time | Associated Diagnosis | Comments | | | ty | | | | + +--------+ + + + | DEXA BONE DENSITY | Routin | 11/28/2018 | | Results for this | | STUDY LAZARO MORGAN FX | e | 12:00 AM | | procedure are in the | | ASSESSMENT | | PDT | | results section. | + +--------+ + + + documented in this encounter Results DEXA Bone Density wo Vert Fx Assmt (11/28/2018 12:00 AM PDT) + + | Specimen [...]
--- OUTSIDE RECORDS SUMMARY | ~2020-01-02 | XMS | Encounter Summary ---
Demographics + + + | Address | [address] | | | [place] [address] | + + + | Home Phone | | + + + | Preferred Language | Unknown | + + + | Marital Status | | + + + | Shinto Affiliation | 1041 | + + + | Race | Unknown | + + + | Ethnic Group | Not or | + + + Author + + + | Author | [facility] | | | and [place] | + + + | Organization | [facility] | | [...] Team Providers + +------+ + | Care Director Of Compensation Name | Role | Phone | + +------+ + | Jean Carlos Crowell PA-C | PCP | | + +------+ + Encounter Details +--------+ + + + + | Date | Type | Department | Care Team | Description | +--------+ + + + + | 02/06/ | Orders Only | [facility] | Conversion | | | 2017 | | RHEUMATOLOGY [address] | Transaction, | | | | | [address] | Provider Unknown | | | | | [place] | [phone] | | | | | [address] | | | | | | [phone] | | | +--------+ + + + [...] 2019 | Visit | | [address] | | | | | | [address] | | | | | | [place] [address] | | | | | | [phone] | | | | | | | | +--------+---------+ + + + documented as of this encounter Procedures + +--------+ + + + | Procedure Name | Priori | Date/Time | Associated Diagnosis | Comments | | | ty | | | | + +--------+ + + + | EXTERNAL LAB: CBC | Routin | 05/03/2016 | | Results for this | | | e | 12:00 AM | | procedure are in the | | | | PST | | results section. | + +--------+ + + + | SEDIMENTATION RATE, | Routin | 05/03/2016 | | Results for this | | AUTOMATED | e | 12:00 AM | | procedure are in the | | | | PST | | results section. | + +--------+ + + + | C-REACTIVE PROTEIN | Routin | 05/03/2016 | | Results for this | | | e | 12:00 AM | | procedure are in the | | | | PST | | results section. | + +--------+ + + + | COMPREHENSIVE | Routin | 05/03/2016 | | Results for this | | METABOLIC PANEL | e | 12:00 AM | | procedure are in the | | | | PST | | results section. | + +--------+ + + + documented in this encounter Results Sedimentation rate, automated (05/03/2016 12:00 AM PST) + +--------+ + + + | Component | Value | Ref Range | Performed | Pathologist | | | | | At | Signature | + +--------+ + + + | Sed Rate | 72 (A) | 0 - 20 | EXTERNAL | | | | | | LAB | | + +--------+ + + + + + | Specimen | + + | Blood specimen | | (specimen) | + + + +---------+ + + | Performing | Address | City/State/Zipcode | Phone Number | | Organization | | | | + +---------+ + + | EXTERNAL LAB | | | | + +---------+ + + External Lab: CBC (05/03/2016 12:00 AM PST) + +-------+ + + + | Component | Value | Ref Range | Performed | Pathologist | | | | | At | Signature | + +-------+ + + + | WBC | 8.5 | 10 | EXTERNAL | | | | | | LAB | | + +-------+ + + + | Non- | 3.93 | 10 | EXTERNAL | | | Red Blood | | | LAB | | | Cells | | | | | | Counted | | | | | + +-------+ + + + | Hemoglobin | 12.5 | g/dL | EXTERNAL | | | | | | LAB | | + +-------+ + + + | Hematocrit, | 35.6 | % | EXTERNAL | | | POC | | | LAB | | + +-------+ + + + | MCV | 90.6 | fL | EXTERNAL | | | | | | LAB | | + +-------+ + + + | MCH | 31.8 | pg | EXTERNAL | | | | | | LAB | | + +-------+ + + + | MCHC | 35.1 | g/dL | EXTERNAL | | | | | | LAB | | + +-------+ + + + | Platelet | 357 | K/ L | EXTERNAL | | | Count | | | LAB | | | Plasma | | | | | + +-------+ + + + | RDW-CV | 14.0 | % | EXTERNAL | | | | | | LAB | | + +-------+ + + + | MPV | | fL | EXTERNAL | | | | | | LAB | | + +-------+ + + + | Differentia | | | EXTERNAL | | | l Type | | | LAB | | + +-------+ + + + | % Segmented | 67.5 | % | EXTERNAL | | | | | | LAB | | | Neutrophils | | | | | + +-------+ + + + | % | 23.1 | % | EXTERNAL | | | Lymphocytes | | | LAB | | + +-------+ + + + | % Monocytes | | % | EXTERNAL | | | | | | LAB | | + +-------+ + + + | % | | % | EXTERNAL | | | Eosinophils | | | LAB | | + +-------+ + + + | % Basophils | | % | EXTERNAL | | | | | | LAB | | + +-------+ + + + | Absolute | | / L | EXTERNAL | | | Segmented | | | LAB | | | Neutrophils | | | | | + +-------+ + + + | Absolute | | / L | EXTERNAL | | | Lymphocytes | | | LAB | | + +-------+ + + + | Absolute | | / L | EXTERNAL | | | Monocytes | | | LAB | | + +-------+ + + + | Absolute | | / L | EXTERNAL | | | Eosinophils | | | LAB | | + +-------+ + + + | Absolute | | / L | EXTERNAL | | | Basophils | | | LAB | | + +-------+ + + + + + | Specimen | + + | Blood specimen | | (specimen) | + + + +---------+ + + | Performing | Address | City/State/Zipcode | Phone Number | | Organization | | | | + +---------+ + + | EXTERNAL LAB | | | | + +---------+ + + C-Reactive Protein (05/03/2016 12:00 AM PST) + +-------+ + + + | Component | Value | Ref Range | Performed | Pathologist | | | | | At | Signature | + +-------+ + + + | CRP | 1.2 | mg/dL | EXTERNAL | | | | | | LAB | | + +-------+ + + + + + | Specimen | + + | Blood specimen | | (specimen) | + + + +---------+ + + | Performing | Address | City/State/Zipcode | Phone Number | | Organization | | | | + +---------+ + + | EXTERNAL LAB | | | | + +---------+ + + Comprehensive Metabolic Panel (05/03/2016 12:00 AM PST) + +-------+ + + + | Component | Value | Ref Range | Performed | Pathologist | | | | | At | Signature | + +-------+ + + + | Glucose, | 72 | mg/dL | EXTERNAL | | | Fasting | | | LAB | | + +-------+ + + + | BUN | 16 | mg/dL | EXTERNAL | | | | | | LAB | | + +-------+ + + + | Creatinine | 0.87 | mg/dL | EXTERNAL | | | | | | LAB | | + +-------+ + + + | BUN/Creatin | 18.4 | | EXTERNAL | | | ine Ratio | | | LAB | | + +-------+ + + + | Calcium | 9.3 | mg/dL | EXTERNAL | | | | | | LAB | | + +-------+ + + + | Protein, | 6.7 | g/dL | EXTERNAL | | | Total | | | LAB | | + +-------+ + + + | Albumin | 3.5 | | EXTERNAL | | | | | | LAB | | + +-------+ + + + | Globulin | | | EXTERNAL | | | | | | LAB | | + +-------+ + + + | A/G Ratio | | | EXTERNAL | | | | | | LAB | | + +-------+ + + + | Bilirubin | 0.2 | mg/dL | EXTERNAL | | | Total | | | LAB | | + +-------+ + + + | ALP, | 88 | | EXTERNAL | | | External | | | LAB | | + +-------+ + + + | ALT | 13 | U/L | EXTERNAL | | | | | | LAB | | + +-------+ + + + | AST | 16 | U/L | EXTERNAL | | | | | | LAB | | + +-------+ + + + | Na | 141 | mmol/L | EXTERNAL | | | | | | LAB | | + +-------+ + + + | K | 5.1 | mmol/L | EXTERNAL | | | | | | LAB | | + +-------+ + + + | Cl | 101 | mmol/L | EXTERNAL | | | | | | LAB | | + +-------+ + + + | CO2 | 24 | mmol/L | EXTERNAL | | | | | | LAB | | + +-------+ + + + | Anion Gap | 16 | mmol/L | EXTERNAL | | | | | | LAB | | + +-------+ + + + | Estimated | 60 | mg/dL | EXTERNAL | | | GFR | | | LAB | | + +-------+ + + + + + | Specimen | + + | Blood specimen | | (specimen) | + + + +---------+ + + | Performing | Address | City/State/Zipcode | Phone Number | | Organization | | | | + +---------+ + + | EXTERNAL LAB | | | | + +---------+ + + documented in this encounter Visit Diagnoses Not on filedocumented in this encounter"
--- OUTSIDE RECORDS SUMMARY | ~2020-01-02 | XMS | Encounter Summary ---
Demographics + + + | Address | [address] | | | [place] [address] | + + + | Home Phone | | + + + | Preferred Language | Unknown | + + + | Marital Status | | + + + | Rastafarian Affiliation | 1041 | + + + | Race | Unknown | + + + | Ethnic Group | Not or | + + + Author + + + | Author | [facility] | | | and [place] | + + + | Organization | [facility] | | | [...] Team Providers + +------+ + | Care Obstetrical Nurse Name | Role | Phone | + +------+ + | Jean Carlos Crowell PA-C | PCP | | + +------+ + Reason for Visit +---------+--------+ + | Reason | Onset | Comments | | | Date | | +---------+--------+ + | Results | 05/30/ | | | | 2020 | | +---------+--------+ + Encounter Details +--------+ + + + + | Date | Type | Department | Care Team | Description | +--------+ + + + + | 03// | Telephone | [facility] | [place], | Results | | 2019 | | RHEUMATOLOGY [address] | [address] | | | | | [address] | [address] | | | | | [place], [place] | [place] [address] | | | | | [address] | [phone] | | | | | [phone] | | | +--------+ + + + [...] this encounter Miscellaneous Notes Telephone Encounter - Jess Lester ARNP - 05/31/2019 2:40 PM PSTIEP from inter-p ath is negative documented in this encounter Plan of Treatment +--------+---------+ + + + | Date | Type | Specialty | Care Team | Description | +--------+---------+ + + + | 01/15/ | Office | Rheumatology | [place], | | | 2019 | Visit | | [address] | | | | | | [address] | | | | | | [place] [address] | | | | | | [phone] | | | | | | | | +--------+---------+ + + + documented as of this encounter Visit Diagnoses Not on filedocumented in this encounter"
--- OUTSIDE RECORDS SUMMARY | ~2020-01-02 | XMS | Encounter Summary ---
Demographics + + + | Address | [address] | | | [place] [address] | + + + | Home Phone | | + + + | Preferred Language | Unknown | + + + | Marital Status | | + + + | Confucianism Affiliation | CAT | + + + | Race | or | + + + | Ethnic Group | Not or | + + + Author + + + | Author | [facility] | + + + | Organization | [facility] | + + + | Address | Unknown | + + + | Phone | Unavailable | + + + Support + + +---------+ + | Name | Relationship | Address | Phone | + + +---------+ + | Giacomo [place] | ECON | Unknown | | + + +---------+ + Care Team Providers + +------+ + | Care Geographic Information Scientist Name | Role | Phone | + +------+ + | Kendall Ruiz MD | PCP | | + +------+ + Encounter Details +--------+ + + + + | Date | Type | Department | Care Team | Description | +--------+ + + + + | 12/23/ | Hospital | Cardiac | Sjh, Car Ecg Tech | | | 2008 | Encounter | Non-Invasive Testing | [address] | | | | | at [facility] | [facility] | | | | | [address] | [place] [address] | | | | | [address] | | | | | | [place], [address] [place] [address] | | | | | | [place], [place] | | | | | | [address] | | | | | | [phone] | | | +--------+ + + + + Social History + + [...] + + + +---------+ + + | ASPIRIN ORAL | Take by mouth. | | 0 | | | + + + +---------+ + + | CELECOXIB | Take by mouth. | | 0 | | | | (CELEBREX ORAL) | | | | | | + + + +---------+ + + | EXENATIDE (BYETTA | Inject under the | | 0 | | | | SUBQ) | skin (SUBC). | | | | | + + + +---------+ + + | gemfibrozil 600 mg | Take 600 mg by mouth | | 0 | | | | Oral Tablet | two times daily. | | | | | + + + +---------+ + + | INSULIN ASPART | Inject under the | | 0 | | | | SUBQ | skin (SUBC). 30-50 | | | | | | | sliding scale | | | | | + + + +---------+ + + | INSULIN | Inject 80 Units | | 0 | | | | GLARGINE,HUM.REC.ANL | under the skin | | | | | | OG (LANTUS SUBQ) | (SUBC). | | | | | + + + +---------+ + + | losartan (COZAAR) | Take 25 mg by mouth | | 0 | | | | 25 mg Oral Tablet | once daily. | | | | | + + + +---------+ + + | METFORMIN HCL | Take by mouth. | | 0 | | | | (METFORMIN ORAL) | | | | | | + + + +---------+ + + | omeprazole 20 mg | Take 20 mg by mouth | | 0 | | | | Oral Capsule, | once daily. | | | | | | Delayed | | | | | | | Release(E.C.) | | | | | | + + + +---------+ + + | oxycodone, | Take by mouth. Take | 60 | 0 | 12/24/19 | | | immediate release, 5 | one to three by | | | 09 | | | mg Oral Tablet | mouth as needed for | | | | | | | pain | | | | | + + + +---------+ + + | PAROXETINE HCL | Take 40 mg by mouth. | | 0 | | | | (PAXIL ORAL) | | | | | | + + + +---------+ + + documented as of this encounter Plan of Treatment + +------+--------+ + + | Name | Type | Priori | Associated Diagnoses | Order Schedule | | | | ty | | | + +------+--------+ + + | 12 LEAD ECG | ECG | Routin | Tenosynovitis of | Ordered: 12/23/2008 | | | | e | Hand and Wrist | | | | | | Other Specified | | | | | | Pre-Operative | | | | | | Examination | | + +------+--------+ + + documented as of this encounter Visit Diagnoses Not on filedocumented in this encounter"
--- OUTSIDE RECORDS SUMMARY | ~2020-01-02 | XMS | Encounter Summary ---
Demographics + + + | Address | [address] | | | [place] [address] | + + + | Home Phone | | + + + | Preferred Language | Unknown | + + + | Marital Status | | + + + | Buddhism Affiliation | 1041 | + + + | Race | Unknown | + + + | Ethnic Group | Not or | + + + Author + + + | Author | [facility] | | | and [place] | + + + | Organization | [facility] | | | [...] Team Providers + +------+ + | Care Florist'S Decorator Name | Role | Phone | + +------+ + PCP | Unavailable | + +------+ + Encounter Details +--------+ + + + + | Date | Type | Department | Care Team | Description | +--------+ + + + + | 08/14/ | Hospital | [facility] | Samuel Kauffman, | | | 2002 | Encounter | MED CTR LABORATORY | [address] | | | | | [address] | [place], [place] | | | | | [place] | [address] | | | | | [address] | | | | | | [phone] | | | +--------+ + + + [...] [address] | | | | | | [place] [address] | | | | | | [phone] | | | | | | | | +--------+---------+ + + + documented as of this encounter Visit Diagnoses Not on filedocumented in this encounter"
--- OUTSIDE RECORDS SUMMARY | ~2020-01-02 | XMS | Encounter Summary ---
Demographics + + + | Address | [address] | | | [place] [address] | + + + | Home Phone | | + + + | Preferred Language | Unknown | + + + | Marital Status | | + + + | Evangelical Affiliation | 1041 | + + + | Race | Unknown | + + + | Ethnic Group | Not or | + + + Author + + + | Author | [facility] | | | and [place] | + + + | Organization | [facility] | | | [...] Team Providers + +------+ + | Care Mechanics Handyman Name | Role | Phone | + +------+ + | Jean Carlos Crowell PA-C | PCP | | + +------+ + Encounter Details +--------+ + + + + | Date | Type | Department | Care Team | Description | +--------+ + + + + | 12/ | Hospital | [facility] | Conversion | Pain | | 2018 | Encounter | CON[address] | Transaction, | | | | [address] | Provider Unknown | | | | | [place], [place] | [phone] | | | | | [address] | | | | | | [phone] | | | +--------+ + + + [...] | atorvaSTATin | | | 0 | 1020 | | | (LIPITOR) 10 mg | [...] | | 0 | | | | 13274 units CAPS | | | | | [...] 2019 | Visit | | [address] | | | | | | [address] | | | | | | [place] [address] | | | | | | [phone] | | | | | | | | +--------+---------+ + + + documented as of this encounter Procedures + +--------+ + + + | Procedure Name | Priori | Date/Time | Associated Diagnosis | Comments | | | ty | | | | + +--------+ + + + | XR FOOT LEFT 3 + VW | Routin | 02/03/2018 | | Results for this | | | e | 1:38 AM | | procedure are in the | | | | PST | | results section. | + +--------+ + + + documented in this encounter Results XR Foot Left 3 + Vw (02/03/2018 1:38 AM PST) + + | Specimen | + + | | + + + + + | Narrative | Performed At | + + + | This is a non-reportable procedure without a radiologist report and | | | is used for image storage only | | + + + + + | Procedure Note | + + | Tony Zheng - 11/08/2018 10:29 AM PDT This is a non-reportable procedure | | without a radiologist report and isused for image storage only | + + documented in this encounter Visit Diagnoses + + | Diagnosis | + + | Pain Generalized pain | + + documented in this encounter"
--- OUTSIDE RECORDS SUMMARY | ~2020-01-02 | XMS | Encounter Summary ---
Demographics + + + | Address | [address] | | | [place] [address] | + + + | Home Phone | | + + + | Preferred Language | Unknown | + + + | Marital Status | | + + + | Confucianist Affiliation | CAT | + + + | Race | or | + + + | Ethnic Group | Not or | + + + Author + + + | Author | [facility] | + + + | Organization | [facility] | + + + | Address | Unknown | + + + | Phone | Unavailable | + + + Support + + +---------+ + | Name | Relationship | Address | Phone | + + +---------+ + | Giacomo [place] | ECON | Unknown | | + + +---------+ + Care Team Providers + +------+ + | Care Welding Machine Operator Ultrasonic Name | Role | Phone | + +------+ + | Kendall Ruiz MD | PCP | | + +------+ + Encounter Details +--------+ + + + + | Date | Type | Department | Care Team | Description | +--------+ + + + + | 11/14/ | Hospital | Radiology/Imaging | | | | 2008 | Encounter | Lab at [facility] [address] | | | | | | [facility], | | | | | | Building | | | | | | Floor [place], [place] | | | | | | [address] | | | | | | [phone] | | | +--------+ + + + [...] at Time of Discharge + + + +---------+--------+ + | Medication | Sig | Dispensed | Refills | Start | End Date | | | | | | Date | | + + + +---------+--------+ + | ASPIRIN ORAL | Take by mouth. | | 0 | | | + + + +---------+--------+ + | CELECOXIB | Take by mouth. | | 0 | | | | (CELEBREX ORAL) | | | | | | + + + +---------+--------+ + | EXENATIDE (BYETTA | Inject under the | | 0 | | | | SUBQ) | skin (SUBC). | | | | | + + + +---------+--------+ + | gemfibrozil 600 mg | Take 600 mg by mouth | | 0 | | | | Oral Tablet | two times daily. | | | | | + + + +---------+--------+ + | INSULIN | Inject 80 Units | | 0 | | | | GLARGINE,HUM.REC.ANL | under the skin | | | | | | OG (LANTUS SUBQ) | (SUBC). | | | | | + + + +---------+--------+ + | losartan (COZAAR) | Take 25 mg by mouth | | 0 | | | | 25 mg Oral Tablet | once daily. | | | | | + + + +---------+--------+ + | omeprazole 20 mg | Take 20 mg by mouth | | 0 | | | | Oral Capsule, | once daily. | | | | | | Delayed | | | | | | | Release(E.C.) | | | | | | + + + +---------+--------+ + documented as of this encounter Plan of Treatment Not on filedocumented as of this encounter Procedures + +--------+ + + + | Procedure Name | Priori | Date/Time | Associated Diagnosis | Comments | | | ty | | | | + +--------+ + + + | X-RAY WRIST 3 VIEWS | Routin | 11/14/2008 | Wrist Pain | Results for this | | RIGHT | e | 11:58 AM | | procedure are in the | | | | PDT | | results section. | + +--------+ + + + documented in this encounter Results X-RAY WRIST 3 VIEWS RIGHT (11/14/2008 11:58 AM PDT) + + + + + + | Component | Value | Ref Range | Performed | Pathologist | | | | | At | Signature | + + + + + + | WRIST 3 | STUDY: WRIST 3 VIEWS | | | | | VIEWS RIGHT | RIGHT 11/14/08 | | | | | | 11:58:00HISTORY: | | | | | | PainCOMPARISON: | | | | | | NONEDISCUSSION:An old | | | | | | healed impacted fracture | | | | | | deformity is seen at | | | | | | the lateralaspect of the | | | | | | distal radius, | | | | | | extending to the | | | | | | radiocarpal joint.There | | | | | | is mild residual dorsal | | | | | | angulation. Tiny spurs | | | | | | are seen at | | | | | | theradiocarpal joint. | | | | | | There is mild ulnar | | | | | | positive variance. | | | | | | There isminimal | | | | | | spurring at the distal | | | | | | radioulnar joint and | | | | | | mild joint | | | | | | spacenarrowing at the | | | | | | triscaphe joint. The | | | | | | soft tissues are | | | | | | normal.IMPRESSION:1. | | | | | | Old healed impacted | | | | | | fracture deformity of | | | | | | the distal radius, | | | | | | withmild residual dorsal | | | | | | angulation.2. Mild | | | | | | degenerative changes | | | | | | seen at the triscaphe | | | | | | and distalradioulnar | | | | | | joint.I have personally | | | | | | viewed this | | | | | | procedure/exam and | | | | | | reviewed this | | | | | | report.Author: JOSE M Guzman | | | | | | LICO SOTOeviewer: | | | | | | DANITA MANE, | | | | | | M.DIrisSTATUS FINAL / | | | | | | DANITA HUBER | | | | | | PENDING FINAL APPROVAL / | | | | | | Dr. JOSE M SOTO | | | | + + + + + + + + | Specimen | + + | | + + + +---------+ + + | Performing | Address | City/State/Zipcode | Phone Number | | Organization | | | | + +---------+ + + | [facility] | | | | | RADIOLOGY | | | | + +---------+ + + documented in this encounter Visit Diagnoses + + | Diagnosis | + + | Wrist pain Pain in joint, forearm | + + documented in this encounter"
--- OUTSIDE RECORDS SUMMARY | ~2020-01-02 | XMS | Encounter Summary ---
Demographics + + + | Address | [address] | | | [place] [address] | + + + | Home Phone [...] Author + + + | Author | [facility] | | | and [place] | + + + | Organization | [facility] | | | and [...] Team Providers + +------+ + | Care Black Oxide Coating Equipment Tender Name | Role | Phone | + +------+ + | Jean Carlos Crowell PA-C | PCP | | + +------+ + Encounter Details +--------+ + + + + | Date | Type | Department | Care Team | Description | +--------+ + + + + | 12/ | Hospital | [facility] | Conversion | Pain | | 2018 | Encounter | [address] | Transaction, | | | | [address] | Provider Unknown | | | | | [place], [place] | [phone] | | | | | [address] | | | | | | [phone] | | | +--------+ + + + [...] | | 0 | | | | [address]54 units CAPS | | | | | [...] 2019 | Visit | | [address] | | | | | | [address] | | | | | | [place] [address] | | | | | | [phone] | | | | | | | | +--------+---------+ + + + documented as of this encounter Procedures + +--------+ + + + | Procedure Name | Priori | Date/Time | Associated Diagnosis | Comments | | | ty | | | | + +--------+ + + + | XR FOOT RIGHT 3 + VW | Routin | 02/03/2018 | | Results for this | | | e | 1:39 AM | | procedure are in the | | | | PST | | results section. | + +--------+ + + + documented in this encounter Results XR Foot Right 3 + Vw (02/03/2018 1:39 AM PST) + + | Specimen | [...]
--- OUTSIDE RECORDS SUMMARY | ~2020-01-02 | XMS | Encounter Summary ---
Demographics + + + | Address | [address] | | | [place] [address] | + + + | Home Phone | | + + + | Preferred Language | Unknown | + + + | Marital Status | | + + + | Caodaism Affiliation | 1041 | + + + | Race | Unknown | + + + | Ethnic Group | Not or | + + + Author + + + | Author | [facility] | | | and [place] | + + + | Organization | [facility] | | | and [place] | + + + | Address | Unknown | + + + | Phone | Unavailable | + + + Support + + +---------+ + | Name | Relationship | Address | Phone | + + +---------+ + | Gicaomo [place] | ECON | Unknown | | + + +---------+ + | Ninfa Morel | ECON | Unknown | | + + +---------+ + Care Team Providers + +------+ + | Care Automotive Glass Installer Name | Role | Phone | + +------+ + PCP | Unavailable | + +------+ + Encounter Details +--------+ + + + + | Date | Type | Department | Care Team | Description | +--------+ + + + + | 02/14/ | Hospital | [facility] | | | | 2000 | Encounter | MED CTR XRAY [address] | | | | | | [address] | | | | | | [place] [address] | | | | | | [phone] | | | +--------+ + + + [...] | | | | | [place] [address] | | | | | | [phone] | | | | | | | | +--------+---------+ + + + documented as of this encounter Visit Diagnoses Not on filedocumented in this encounter"
--- OUTSIDE RECORDS SUMMARY | ~2020-01-02 | XMS | Encounter Summary ---
Demographics + + + | Address | [address] | | | [place] [address] | + + + | Home Phone | | + + + | Preferred Language | Unknown | + + + | Marital Status | | + + + | Taoism Affiliation | 1041 | + + + | Race | Unknown | + + + | Ethnic Group | Not or | + + + Author + + + | Author | [facility] | | | and [place] | + + + | Organization | [facility] | | | [...] Team Providers + +------+ + | Care Mercerizing Range Controller Name | Role | Phone | + +------+ + | Jean Carlos Crowell PA-C | PCP | | + +------+ + Encounter Details +--------+ + + + + | Date | Type | Department | Care Team | Description | +--------+ + + + + | 02/03/ | Orders Only | [facility] | [place], | | | 2017 | | RHEUMATOLOGY [address] | | | | | [address] | [address] | | | | | [place], [place] | [place] [address] | | | | | [address] | [phone] | | | | | [phone] | | | +--------+ + + + [...] [address] | | | | | | [place] [address] | | | | | | [phone] | | | | | | | | +--------+---------+ + + + documented as of this encounter Procedures + +--------+ + + + | Procedure Name | Priori | Date/Time | Associated Diagnosis | Comments | | | ty | | | | + +--------+ + + + | EXTERNAL LAB: CBC | Routin | 02/03/2018 | | Results for this | | | e | 10:15 AM | | procedure are in the | | | | PST | | results section. | + +--------+ + + + | SEDIMENTATION RATE, | Routin | 02/03/2018 | | Results for this | | AUTOMATED | e | 10:15 AM | | procedure are in the | | | | PST | | results section. | + +--------+ + + + | COMPREHENSIVE | Routin | 02/03/2018 | | Results for this | | METABOLIC PANEL | e | 10:15 AM | | procedure are in the | | | | PST | | results section. | + +--------+ + + + documented in this encounter Results Sedimentation rate, automated (02/03/2018 10:15 AM PST) + +--------+ + + + | Component | Value | Ref Range | Performed | Pathologist | | | | | At | Signature | + +--------+ + + + | Sed Rate | 54 (H) | 0 - 30 mm/h | EXTERNAL | | | | | [...] + +---------+ + + External Lab: CBC (02/03/2018 10:15 AM PST) + + + + + + | Component | Value | Ref Range | Performed | Pathologist | | | | | At | Signature | + + + + + + | WBC | 10.11 | 3.80 - 11.00 | EXTERNAL | | | | | 10*3/uL | LAB | | + + + + + + | Non- | 4.05 | 3.70 - 5.10 | EXTERNAL | | | Red Blood | | 10*6/uL | LAB | | | Cells | | | | | | Counted | | | | | + + + + + + | Hemoglobin | 12.3 | 11.3 - 15.5 | EXTERNAL | | | | | g/dL | LAB | | + + + + + + | Hematocrit, | 36.6 | 34.0 - 46.0 % | EXTERNAL | | | POC | | | LAB | | + + + + + + | MCV | 90.5 | 80.0 - 100.0 fL | EXTERNAL | | | | | | LAB | | + + + + + + | MCH | 30.5 | 27.0 - 34.0 pg | EXTERNAL | | | | | | LAB | | + + + + + + | MCHC | 33.7 | 32.0 - 35.5 | EXTERNAL | | | | | g/dL | LAB | | + + + + + + | RDW-CV | 48.6 | 37 - 53 fL | EXTERNAL | | | | | | LAB | | + + + + + + | Platelet | 348 | 150 - 400 | EXTERNAL | | | Count | | 10*3/uL | LAB | | | Plasma | | | | | + + + + + + | MPV | 6.8 | fL | EXTERNAL | | | | | | LAB | | + + + + + + | Differentia | AUTOMATED | | EXTERNAL | | | l Type | | | LAB | | + + + + + + | % Segmented | 74.81 | % | EXTERNAL | | | | | | LAB | | | Neutrophils | | | | | + + + + + + | % | 17.61 | % | EXTERNAL | | | Lymphocytes | | | LAB | | + + + + + + | % Monocytes | 6.39 | % | EXTERNAL | | | | | | LAB | | + + + + + + | % | 0.60 | % | EXTERNAL | | | Eosinophils | | | LAB | | + + + + + + | % Basophils | 0.59 | % | EXTERNAL | | | | | | LAB | | + + + + + + | Absolute | 7.57 (H) | 1.90 - 7.40 | EXTERNAL | | | Segmented | | 10*3/uL | LAB | | | Neutrophils | | | | | + + + + + + | Absolute | 1.78 | 1.00 - 3.90 | EXTERNAL | | | Lymphocytes | | 10*3/uL | LAB | | + + + + + + | Absolute | 0.65 | 0.00 - 0.80 | EXTERNAL | | | Monocytes | | 10*3/uL | LAB | | + + + + + + | Absolute | 0.06 | 0.00 - 0.50 | EXTERNAL | | | Eosinophils | | 10*3/uL | LAB | | + + + + + + | Absolute | 0.06 | 0.00 - 0.10 | EXTERNAL | | | Basophils | | 10*3/uL | LAB | | + + + + + + + + | Specimen | + + | Blood specimen | | (specimen) | + + + +---------+ + + | Performing | Address | City/State/Zipcode | Phone Number | | Organization | | | | + +---------+ + + | EXTERNAL LAB | | | | + +---------+ + + Comprehensive Metabolic Panel (02/03/2018 10:15 AM PST) + + + + + + | Component | Value | Ref Range | Performed | Pathologist | | | | | At | Signature | + + + + + + | Na | 140 | 135 - 145 | EXTERNAL | | | | | mmol/L | LAB | | + + + + + + | K | 5.1 (H) | 3.5 - 4.9 | EXTERNAL | | | | | mmol/L | LAB | | + + + + + + | Cl | 108 | 99 - 109 mmol/L | EXTERNAL | | | | | | LAB | | + + + + + + | CO2 | 23 | 23 - 32 mmol/L | EXTERNAL | | | | | | LAB | | + + + + + + | Anion Gap | 14 | 5 - 20 mmol/L | EXTERNAL | | | | | | LAB | | + + + + + + | Glucose, | 151 (H) | 65 - 99 mg/dL | EXTERNAL | | | Fasting | | | LAB | | + + + + + + | BUN | 18 | 8 - 25 mg/dL | EXTERNAL | | | | | | LAB | | + + + + + + | Creatinine | 0.8 | 0.50 - 1.00 | EXTERNAL | | | | | mg/dL | LAB | | + + + + + + | BUN/Creatin | 23 | | EXTERNAL | | | ine Ratio | | | LAB | | + + + + + + | Calcium | 9.0 | 8.5 - 10.5 | EXTERNAL | | | | | mg/dL | LAB | | + + + + + + | Protein, | 7.3 | 6.3 - 8.2 g/dL | EXTERNAL | | | Total | | | LAB | | + + + + + + | Albumin | 3.4 | 3.3 - 4.8 g/dL | EXTERNAL | | | | | | LAB | | + + + + + + | Globulin | 3.9 | 1.3 - 4.9 g/dL | EXTERNAL | | | | | | LAB | | + + + + + + | A/G Ratio | 0.9 (L) | 1.0 - 2.4 | EXTERNAL | | | | | | LAB | | + + + + + + | Bilirubin | 0.2 | 0.1 - 1.5 mg/dL | EXTERNAL | | | Total | | | LAB | | + + + + + + | ALP, | 108 | 35 - 115 U/L | EXTERNAL | | | External | | | LAB | | + + + + + + | AST | 14 | 10 - 45 U/L | EXTERNAL | | | | | | LAB | | + + + + + + | ALT | 20 | 10 - 65 U/L | EXTERNAL | | | | | | LAB | | + + + + + + | Estimated | >60Comment: GFR <60: | mL/min/1.73_m2 | EXTERNAL | | | GFR | CHRONIC KIDNEY DISEASE, | | LAB | | | | IF FOUND OVER A 3 MONTH | | | | | | PERIOD. GFR <15: KIDNEY | | | | | | FAILURE. FOR | | | | | | AMERICANS, MULTIPLY THE | | | | | | CALCULATED GFR BY 1.210. | | | | | | This eGFR is calculated | | | | | | using the MDRD IDFL | | | | | | traceable equation. | | | | + + + [...]
--- OUTSIDE RECORDS SUMMARY | ~2020-01-02 | XMS | Encounter Summary ---
Demographics + + + | Address | [address] | | | [place] [address] | + + + | Home Phone | | + + + | Preferred Language | Unknown | + + + | Marital Status | | + + + | Holiness Affiliation | 1041 | + + + | Race | Unknown | + + + | Ethnic Group | Not or | + + + Author + + + | Author | [facility] | | | and [place] | + + + | Organization | [facility] | | | [...] Team Providers + +------+ + | Care Turret Lathe Operator Name | Role | Phone | + +------+ + | Jean Carlos Crowell PA-C | PCP | | + +------+ + Reason for Visit + + + | Reason | Comments | + + + | Follow-up | RA | + + + Encounter Details +--------+---------+ + + + | Date | Type | Department | Care Team | Description | +--------+---------+ + + + | 10/15/ | Office | [facility] | [place], | Rheumatoid arthritis | | 2019 | Visit | RHEUMATOLOGY [address] | [address] | of multiple sites | | | | [address] | [address] | with negative | | | | [place] | [place] [address] | rheumatoid factor | | | | [address] | [phone] | (HCC); High risk | | | | [phone] | | medication use; | | | | | | Lymph node | | | | | | enlargement | +--------+---------+ + + + Social History [...] + + + | Blood Pressure | 129/77 | 10/16/2019 9:21 AM | | | | | PDT | | + + + + + | Pulse | 79 | 10/16/2019 9:21 AM | | | | | PDT | | + + + + + | Temperature | 36.5 C (97.7 F) | 10/16/2019 9:21 AM | | | | | PDT | | + + + + + | Respiratory Rate | - | - | | + + + + + | Oxygen Saturation | 98% | 10/16/2019 9:21 AM | | | | | PDT | | + + + + + | Inhaled Oxygen | - | - | | | Concentration | | | | + + + + + | Weight | 87.1 kg (192 lb) | 10/16/2019 9:21 AM | | | | | PDT | | + + + + + | Height | - | - | | + + + + + | Body Mass Index | 35.12 | 01/08/2019 9:17 AM | | | | | PDT | | + + + + + documented in this encounter Patient Instructions Patient Instructions Cristel Castaneda Supervisor Stone - 10/16/2019 9:20 AM PDTWe hope that you have experienced exceptional care today and that you found our service to be court eous and helpful. If you have any questions or need medication refills you can send us a message/request u [employer] or call our office at [phone]. To reach my MA-C type extension [phone]. If you are unable to reach a [...] can also look at your results on ibabyboxt. If you are experiencing an emergency, please call 911 documented in this encounter Progress Notes Jess Lester ARNP - 10/16/2019 9:20 AM PDTFormatting of this note might be [...] Imaging:OA changes, neg. erosionsto H/F 2017, CXR 2012 - neg HPI Last visit:07/17/2019 Changes in overall health since last visit: no Main Concern: RA-reports joint pain affecting right hand -but overall she feels that RA sym ptoms have improved since she has resumed sulfasalazine cgglqxv-wwfczf-0 tab a.m. 2 tabs in the p.m.. Recall, she has been off this medication for 1 to 2 months due to a shortage of t he medication. Her other concern is a enlarged lymph node under the left axilla-she has followed up with Jagdish MAGUIRE, reports that mammogram was satisfactory. She states that the lymph node is unchanged in size. Has not had lymph node biopsy. Denies fevers unintended weight loss or night sweats . No history of breast cancer or other malignancies Denies joint swelling, AM stiffness > 30 minutes, fevers, illness, infection, rashes, oral ulcers, chest pain, SOB or abdominal pain Location: right hand Quality: ache Severity: moderate Duration: 1-3 months Timing:All day Aggravated by:all the time Relieved by:medication topical cbd cream Tried and failed oral DMARDs include: Plaquenil (Pt reports allergy)., Arava( diarrhea, inf ection) MTX was avoided since she reported SOB. 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 The following portions of the patient's history [...] (HCC) 10/18/2013 COPD (chronic obstructive pulmonary disease) (HCC) Depression Diabetes mellitus (HCC) Diabetes mellitus, type [...] surgery 12/11 5 pins put in Scleroderma (HCC) Sleep apnea no CPAP Sleep apnea no [...] Genitourinary: Negative for dysuria and hematuria. Musculoskeletal: Positive for arthralgias (right hands). Negative for joint swelling. Skin: Positive for rash. Neurological: Negative for numbness and headaches. Psychiatric/Behavioral: The patient is not nervous/anxious. IJess, reviewed the above ROS, all other systems are reviewed and nega tive Objective: BP 129/77 | Pulse 79 | Temp 36.5 C (97.7 F) (Temporal) | Wt 87.1 kg (192 lb) | SpO2 98% | BMI 35.12 kg/m Physical Exam Constitutional: Appearance: She is well-developed. Comments: Flat affect tearful at times HENT: Head: Normocephalic. Eyes: Pupils: Pupils are equal, round, and reactive to light. Cardiovascular: Rate and Rhythm: Normal rate and regular rhythm. Heart sounds: Normal heart sounds. Pulmonary: Effort: Pulmonary effort is normal. Breath sounds: Normal breath sounds. Musculoskeletal: Normal range of motion. Comments: Musculoskeletal examination of the RIGHT and LEFT upper extremity, RIGHT and L EFT lower extremity, spine, ribs ,pelvis ,head and neck was performed See homonculus Musculoskeletal examination reveals chronic rheumatoid changes with MCP subluxation and uln ar deviation and forefoot deformities Degenerative changes in the hands and feet Posture is kyphotic Lymphadenopathy: Upper Body: Left upper body: Axillary adenopathy present. Comments: Palpable lymph node under the left axilla, nontender during the examination Skin: General: Skin is warm and dry. Neurological: Mental Status: She is alert and oriented to person, place, and time. Psychiatric: Behavior: Behavior normal. ARMENDARIZ-28 (ESR): [facility] July 20192018hep b/c neg. 09/11 chest xray- nodule in L upper lobe- unchanged Reviewed chart notes, labs and imaging form other provider(s) since the last visit. Assessment and Plan: Visit Diagnoses and Associated Orders: Rheumatoid arthritis of multiple sites with negative rheumatoid factor (HCC) Assessment & Plan: Initially diagnosed with RA 2012, +DAYNA, +SCL-70, Neg. RF, neg centromere. 2018- x-rays H/F- neg.erosions No clinical evidence of active disease on today's exam. Peripheral joint symptoms have imp roved since she resumed sulfasalazine Responding well to current treatment plan. No change in treatment plan. Continue methotrexate 17.5 mg once a week and sulfasalazine E C 500 mg-1 tab in the a.m., 1000 mg-2 tabs in the p.m. Patient understands that treatment is long-term and if patient fails to continue regimen , the disease has propensity to flare. RTC 3 to 4 months Orders: - Comprehensive Metabolic Panel; Future - C-Reactive Protein; Future - Sedimentation Rate; Future - CBC with Differential; Future; Expected date: 10/16/2019 High risk medication use Assessment & Plan: Update labs today and continue to monitor closely while on DMARD and/or biologic medication . Counseled regarding medication compliance as well as potential toxicities with medication s such as cytopenias, liver abnormalities and risks for infection, and the need for routine blood work monitoring. Orders: - Comprehensive Metabolic Panel; Future - C-Reactive Protein; Future - Sedimentation Rate; Future - CBC with Differential; Future; Expected date: 10/16/2019 Lymph node enlargement Assessment & Plan: Enlarged lymph node under left axilla, recommend that she continue follow-up with PCP-if sh e still has concerns or questions Risks and benefits of a treatment plan were explained to patient. Patient will follow up with their primary care physician in regards to non-rheumatological symptoms listed under review of systems. Patient was advised to contact our office if there are any change in their symptoms. This document has been prepared with [employer] voice recognition system. The possibility of "s ound alike" waste disposal attendant errors, and additions, or deletions may occur. If there is any que stion with respect to clarity of the message being conveyed, please contact me directly for clarification. documented in this encounter Miscellaneous Notes Assessment & Plan Note - Jess Lester ARNP - 10/16/2019 12:10 PM PDTAssociated Pr oblem(s): Lymph node enlargementEnlarged lymph node under left axilla, recommend that she co ntinue follow-up with PCP-if she still has concerns or questions ssessment & Plan Note - Donald Lester ARNP - 10/15/2019 11:23 AM PDTAssociated Problem(s): High risk medication useUpdate la bs today and continue to monitor closely while on DMARD and/or biologic medication. Cull Grader ed regarding medication compliance as well as potential toxicities with medications such as cytopenias, liver abnormalities and risks for infection, and the need for routine blood work monitoring. ssessment & Plan Note - Jess Lester ARNP - 10/15/2019 11:23 AM PDTAssociated Problem(s): Rheu matoid arthritis of multiple sites with negative rheumatoid factor (HCC)Initially diagnosed with RA 2012, +DAYNA, +SCL-70, Neg. RF, neg centromere. 2018- x-rays H/F- neg.erosions No clinical evidence of active disease on today's exam. Peripheral joint symptoms have imp roved since she resumed sulfasalazine Responding well to current treatment plan. No change in treatment plan. Continue methotrexate 17.5 mg once a week and sulfasalazine E C 500 mg-1 tab in the a.m., 1000 mg-2 tabs in the p.m. Patient understands that treatment is long-term and if patient fails to continue regimen , the disease has propensity to flare. RTC 3 to 4 months documented in this encounter Plan of Treatment +--------+---------+ + + + | Date | Type | Specialty | Care Team | Description | +--------+---------+ + + + | Office | Rheumatology | [place], | | 2019 | Visit | | [address] | | | | | | [address] | | | | | | [place] [address] | | | | | | [phone] | | | | | | | | +--------+---------+ + + + documented as of this encounter Results CBC with Differential (10/16/2019 9:51 AM PDT) + + + + + + | Component | Value | Ref Range | Performed | Pathologist | | | | | At | Signature | + + + + + + | WBC | 9.64 | 3.80 - 11.00 | REFERENCE | | | | | K/uL | LAB | | | | | | [facility] | | | | | | LABORATORY | | + + + + + + | Red Blood | 3.76 | 3.70 - 5.10 | REFERENCE | | | Cells | | M/uL | LAB | | | | | | [facility] | | | | | | LABORAT[facility] | | + + + + + + | Hemoglobin | 11.1 (L) | 11.3 - 15.5 | REFERENCE | | | | | g/dL | LAB | | | | | | [facility] | | | | | | LABORAT[facility] | | + + + + + + | Hematocrit | 35.1 | 34.0 - 46.0 % | REFERENCE | | | | | | LAB | | | | | | [facility] | | | | | | [facility] | | + + + + + + | MCV | 93.4 | 80.0 - 100.0 fl | REFERENCE | | | | | | LAB | | | | | | [facility] | | | | | | [facility] | | + + + + + + | MCH | 29.5 | 27.0 - 34.0 pg | REFERENCE | | | | | | LAB | | | | | | [facility] | | | | | | [facility] | | + + + + + + | MCHC | 31.6 (L) | 32.0 - 35.5 | REFERENCE | | | | | g/dL | LAB | | | | | | [facility] | | | | | | LAB[facility]AT[facility] | | + + + + + + | RDW-SD | 54.2 (H) | 37 - 53 fl | REFERENCE | | | | | | LAB | | | | | | [facility] | | | | | | [facility] | | + + + + + + | Platelet | 418 (H) | 150 - 400 K/uL | REFERENCE | | | Count | | | LAB | | | | | | [facility] | | | | | | [facility] | | + + + + + + | MPV | 9.4Comment: NO NORMAL | fl | REFERENCE | | | | RANGE ESTABLISHED | | LAB | | | | | | [facility] | | | | | | [facility] | | + + + + + + | Diff Type | AUTOMATED | | REFERENCE | | | | | | LAB | | | | | | [facility] | | | | | | [facility] | | + + + + + + | % nRBC | 0.0 | 0 /100WBC | REFERENCE | | | | | | LAB | | | | | | [facility] | | | | | | [facility] | | + + + + + + | % | 81.50 | % | REFERENCE | | | Neutrophils | | | LAB | | | | | | [facility] | | | | | | [facility] | | + + + + + + | IMMATURE | 0.70 | % | REFERENCE | | | GRANULOCYTE | | | LAB | | | | | | [facility] | | | | | | LAB[facility] | | + + + + + + | % | 13.30 | % | REFERENCE | | | Lymphocytes | | | LAB | | | | | | [facility] | | | | | | [facility] | | + + + + + + | Monocyte % | 3.30 | % | REFERENCE | | | | | | LAB | | | | | | [facility] | | | | | | [facility] | | + + + + + + | Eosinophils | 0.60 | % | REFERENCE | | | % | | | LAB | | | | | | [facility] | | | | | | [facility] | | + + + + + + | Basophils % | 0.60 | % | REFERENCE | | | | | | LAB | | | | | | [facility] | | | | | | [facility] | | + + + + + + | Neutrophils | 7.85 (H) | 1.90 - 7.40 | REFERENCE | | | , Absolute | | K/uL | LAB | | | | | | [facility] | | | | | | [facility] | | + + + + + + | IMMATURE | 0.07Comment: NOTE NEW | 0.00 - 0.07 | REFERENCE | | | GRANS AB | REFERENCE RANGE | K/uL | LAB | | | | | | [facility] | | | | | | [facility] | | + + + + + + | Absolute | 1.28 | 1.00 - 3.90 | REFERENCE | | | Lymphocytes | | K/uL | LAB | | | | | | [facility] | | | | | | [facility] | | + + + + + + | Absolute | 0.32 | 0.00 - 0.80 | REFERENCE | | | Monocytes | | K/uL | LAB | | | | | | [facility] | | | | | | [facility] | | + + + + + + | Eosinophils | 0.06 | 0.00 - 0.50 | REFERENCE | | | , Absolute | | K/uL | LAB | | | | | | [facility] | | | | | | LAB[facility] | | + + + + + + | Basophils, | 0.06Comment: Testing | 0.00 - 0.10 | REFERENCE | | | Absolute | performed at [facility];[address] | K/uL | LAB | | | | [address] | | [facility] | | | | [address];[place] [address] | | LABORATORY | | + + + + + + + + | Specimen | + + | Blood | + + + + + + + | Performing | Address | City/State/Zipcode | Phone Number | | Organization | | | | + + + + + | REFERENCE LAB | [address] | [place] | [phone] | | [facility] | [address] | [address] | | | LABORATORY | | | | + + + + + | REFERENCE LAB | [address] | [place] | | | [facility] | [address] | [address] | | | LABORATORY | | | | + + + + + Sedimentation Rate (10/16/2019 9:51 AM PDT) + + + + + + | Component | Value | Ref Range | Performed | Pathologist | | | | | At | Signature | + + + + + + | ESR | 86 (H)Comment: Testing | 0 - 30 mm/Hr | REFERENCE | | | | performed at [facility];[address] | | LAB | | | | [place] | | [facility] | | | | [address];[place] [address] | | LABORATORY | | + + + + + + + + | Specimen | + + | Blood | + + + + + + + | Performing | Address | City/State/Zipcode | Phone Number | | Organization | | | | + + + + + | REFERENCE LAB | [address] [place] [address] | [place], [place] | [phone] | | [facility] | [address] | [address] | | | LABORATORY | | | | + + + + + | REFERENCE LAB | [address] [place] [address] | [place], [place] | | | [facility] | [address] | [address] | | | LABORATORY | | | | + + + + + C-Reactive Protein (10/16/2019 9:51 AM PDT) + + + + + + | Component | Value | Ref Range | Performed | Pathologist | | | | | At | Signature | + + + + + + | CRP | 2.0 (H)Comment: Testing | <0.5 mg/dL | REFERENCE | | | | performed at [facility];[address] | | LAB | | | | [place] | | [facility] | | | | [address];[place] [address] | | LABORATORY | | + + + + + + + + | Specimen | + + | Blood | + + + + + + + | Performing | Address | City/State/Zipcode | Phone Number | | Organization | | | | + + + + + | REFERENCE LAB | [address] | [place] | [phone] | | [facility] | [address] | [address] | | | LABORATORY | | | | + + + + + | REFERENCE LAB | [address] | [place] | | | [facility] | [address] | [address] | | | LABORATORY | | | | + + + + + Comprehensive Metabolic Panel (10/16/2019 9:51 AM PDT) + + + + + + | Component | Value | Ref Range | Performed | Pathologist | | | | | At | Signature | + + + + + + | Na | 140 | 135 - 145 | REFERENCE | | | | | mmol/L | LAB | | | | | | [facility] | | | | | | LABORATORY | | + + + + + + | K | 5.2 (H) | 3.5 - 4.9 | REFERENCE | | | | | mmol/L | LAB | | | | | | [facility] | | | | | | LABORATORY | | + + + + + + | Cl | 112 (H) | 99 - 109 mmol/L | REFERENCE | | | | | | LAB | | | | | | [facility] | | | | | | LABORATORY | | + + + + + + | CO2 | 16 (L) | 23 - 32 mmol/L | REFERENCE | | | | | | LAB | | | | | | [facility] | | | | | | LABORATORY | | + + + + + + | Anion Gap | 17 | 5 - 20 mmol/L | REFERENCE | | | | | | LAB | | | | | | [facility] | | | | | | LABORATORY | | + + + + + + | Glucose | 161 (H) | 65 - 99 mg/dL | REFERENCE | | | | | | LAB | | | | | | [facility] | | | | | | LABORATORY | | + + + + + + | BUN | 15 | 8 - 25 mg/dL | REFERENCE | | | | | | LAB | | | | | | [facility] | | | | | | LABORATORY | | + + + + + + | Creatinine | 0.90 | 0.50 - 1.00 | REFERENCE | | | | | mg/dL | LAB | | | | | | [facility] | | | | | | LABORATORY | | + + + + + + | BUN/Creatin | 17 | | REFERENCE | | | ine Ratio | | | LAB | | | | | | [facility] | | | | | | LABORATORY | | + + + + + + | Calcium | 9.4 | 8.5 - 10.5 | REFERENCE | | | | | mg/dL | LAB | | | | | | [facility] | | | | | | LABORATORY | | + + + + + + | Protein, | 7.4 | 6.3 - 8.2 g/dL | REFERENCE | | | Total | | | LAB | | | | | | [facility] | | | | | | LABORATORY | | + + + + + + | Albumin | 3.5 | 3.3 - 4.8 g/dL | REFERENCE | | | | | | LAB | | | | | | [facility] | | | | | | LABORATORY | | + + + + + + | Globulin | 3.9 | 1.3 - 4.9 g/dL | REFERENCE | | | | | | LAB | | | | | | [facility] | | | | | | LABORATORY | | + + + + + + | A/G Ratio | 0.9 (L) | 1.0 - 2.4 | REFERENCE | | | | | | LAB | | | | | | [facility] | | | | | | LABORATORY | | + + + + + + | BILIRUBIN, | 0.3 | 0.1 - 1.5 mg/dL | REFERENCE | | | TOTAL | | | LAB | | | | | | [facility] | | | | | | LABORATORY | | + + + + + + | ALK PHOS | 121 (H) | 35 - 115 U/L | REFERENCE | | | | | | LAB | | | | | | [facility] | | | | | | LABORATORY | | + + + + + + | AST | 20 | 10 - 45 U/L | REFERENCE | | | | | | LAB | | | | | | [facility] | | | | | | LABORATORY | | + + + + + + | ALT | 28 | 10 - 65 U/L | REFERENCE | | | | | | LAB | | | | | | [facility] | | | | | | LABORATORY | | + + + + + + | Estimated | >60Comment: GFR <60: | >60 | REFERENCE | | | GFR | CHRONIC KIDNEY DISEASE, | mL/min/1.73m2 | LAB | | | | IF FOUND OVER A 3 MONTH | | [facility] | | | | PERIOD.GFR <15: KIDNEY | | LABORATORY | | | | FAILURE.FOR | | | | | | AMERICANS, MULTIPLY THE | | | | | | CALCULATED GFR BY | | | | | | 1.210.This eGFR is | | | | | | calculated using the | | | | | | MDRD IDMS traceable | | | | | | equation.Testing | | | | | | performed at [facility];[address] | | | | | | [facility] | | | | | | [address];[place] [address] | | | | | | | | | | + + + + + + + + | Specimen | + + | Blood | + + + + + + + | Performing | Address | City/State/Zipcode | Phone Number | | Organization | | | | + + + + + | REFERENCE LAB | [facility] [address] | [place] | [phone] | | [facility] | [address] | [address] | | | LABORATORY | | | | + + + + + | REFERENCE LAB | [facility] [address] | [place] | | | [facility] | [address] | [address] | | | LABORATORY | | | | + + + + + documented in this encounter Visit Diagnoses + + | Diagnosis | + + | Rheumatoid arthritis of multiple sites with negative rheumatoid factor (HCC) | + + | High risk medication use Encounter for long-term (current) use of other medications | + + | Lymph node enlargement Enlargement of lymph nodes | + + documented in this encounter
--- OUTSIDE RECORDS SUMMARY | ~2020-01-02 | XMS | Encounter Summary ---
Demographics + + + | Address | [address] | | | [place] [address] | + + + | Home Phone | | + + + | Preferred Language | Unknown | + + + | Marital Status | | + + + | Denominational Affiliation | 1041 | + + + | Race | Unknown | + + + | Ethnic Group | Not or | + + + Author + + + | Author | [facility] | | | and [place] | + + + | Organization | [facility] | | | [...] Team Providers + +------+ + | Care Sap Administrator Name | Role | Phone | + [...] | | | | | | | MA REMV | | | | | | [...] Description | +--------+---------+ + + + | 12/09/ | Surgery | [facility] | Lyubov Howe, | Left Cataract | | 2017 | | [facility] | [address] | Extraction w/ Lens | | | | [address] | [place] | Implant | | | | [place] | [id number] | | | | | [address] | | | | | | [phone] | | | +--------+---------+ + + + [...] + + + | Blood Pressure | 131/58 | 12/09/2016 7:21 AM | | | | | PDT | | + + + + + | Pulse | 86 | 12/09/2016 7:21 AM | | | | | PDT | | + + + + + | Temperature | 36.3 C (97.3 F) | 12/09/2016 7:21 AM | | | | | PDT | | + + + + + | Respiratory Rate | 18 | 12/09/2016 7:21 AM | | | | | PDT | | + + + + + | Oxygen Saturation | 98% | 12/09/2016 7:21 AM | | | [...] all the medicines you take. This includes ihna-cgn-fgkuphv medicines such as ibupro fen. It also [...] by the pain medicine Date Last Reviewed: 04/28/201619991192-1875 [employer]. [address] [place] [address], [place] [address]. All righ ts reserved. This information is [...] | | 0 | | | | [address] units CAPS | | | | | [...] by: Lyubov Howe MD, 12/09/2016 8:39 [facility] Lyubov Howe MD at 8:40 AM PDTEdLyubov marroquin MD - 12/02/2016 9:34 AM PDT [address] [id number] HISTORY AND PHYSICAL LYUBOV HOWE MD Patient: ANA ROSA [place] Admitting: LYUBOV S CARLEY MR #: [id number] LOC: PT TYPE: Adm Date: : 1955 [...] Transcribed on 12/02/2016 09:53:10 by so job# [id number] Confirmation #: [id number] cc: JEAN CARLOS TORO PAC documented in this encounter Miscellaneous Notes Op Note - Lyubov Howe MD - 12/09/2016 2:30 PM PDT [address] [address] OPERATIVE REPORT LYUBOV HOWE MD Patient: ANA ROSA [place] Admitting: LYUBOV HOWE MR #: [id number] LOC: PT TYPE: Adm Date: 12/09/2016 : [...] move the lens cortex, and then gently ukrainian the capsular bag. Provisc was then used to inf late the capsular bag, and an FELICIA PCB00 lens with a power of 23.0 diopters was inserted in to the capsular bag and adjusted using a [place]inskey hook. The irrigation and aspiration handpi hsruthi was then used to remove the Provisc. [...] 12/09/2016 14:30:53 Transcribed on 12/09/2016 14:52:47 by [facility] job# [id number] Confirmation #: [id number] cc: JEAN CARLOS TORO [facility] rief Op Note - Edw Lyubov lomas MD - 12/09/2016 10:12 AM PDT Brief Operative Note Ana Rosa [place] 61 y.o. female 1955 [id number] Proc. Date 12/09/2016 Preop Dx Age-related nuclear cataract of left eye [H25.12] Postop Dx same Procedure Left Cataract Extraction w/ Lens Implant (Left) Anesthesia Monitored anesthesia care supplemented by a retrobulbar block Surgeon Lyubov Howe MD - Primary Treasury Manager EBL Minimal Findings Findings consistent with scheduled procedure. No other abnormalities found. Complications none Specimens * No specimens in log * Drains Electronically signed by: Lyubov Howe MD 12/09/2016 10:12 [facility] by Lyubov Howe MD at [...] [address] | | | | | | [place] [address] | | | | | | [phone] | | | | | | | [...] | | POC | | | [facility] | | [...] + + | [facility] | [address] | [place], [place] | [phone] | | [facility] | | [address] | | | - LABORATORY | | | | + + + + + documented in this encounter Visit Diagnoses + + | Diagnosis | + + | Age-related nuclear cataract of left eye Senile nuclear sclerosis | + + documented [...] +---+---+ | | | +---+---+ + +-------+ + +---+ + | balanced salts sterile | Given | 12/10/19 | 1 | | Eye-Left | | ophthalmic irrigation solution | | 17 10:05 | Applicat | | | | PRN, Starting [facility] 12/09/16 at | | AM PDT | ion | | | | 1005, Intra-op | | | | | | + +-------+ + +---+ + +---+---+ | | | +---+---+ + [...] | +---+---+ + +-------+ +--------+---+ + | EPINEPHrine 1 mg/mL injection | Given | 12/10/19 | 0.4 mg | | Eye-Left | | PRN, Starting Tue12/09/16 at | | 17 10:01 | | | | | 1001, Intra-op | | AM PDT | | | | + +-------+ +--------+---+ + +---+---+ | | | +---+---+ + +-------+ +-------+---+ + | hyaluronate & chondroitin | Given | 12/10/19 | 1 kit | | Eye-Left | | hyaluronate (DUOVISC) intraocular | | 17 9:52 | | | | | kit PRN, Starting [place] 12/09/16 | | AM PDT | | | | | at 0952, Intra-op | | | | | | + +-------+ +-------+---+ + +---+---+ | | | +---+---+ + [...] +---+---+ | | | +---+---+ + +-------+ +-------+---+ + | lidocaine (PF) 2% injection | Given | 12/10/19 | 5 mLs | | Eye-Left | | PRN, Starting [facility] 12/09/16 at | | 17 9:53 | | | | | 0953, Intra-op | | AM PDT | | | | + +-------+ +-------+---+ + +---+---+ | | | +---+---+ + +-------+ +--------+---+ + | moxifloxacin (VIGAMOX) 0.5% | Given | 12/10/19 | 1 drop | | Eye-Left | | ophthalmic solution PRN, | | 17 10:06 | | | | | Starting [facility] 12/09/16 at 1006, | | AM PDT | | | | | Intra-op | | | | | | + +-------+ +--------+---+ + +---+---+ | | | [...] | | | | | | Starting [facility] 12/09/16 at 0749, For | | [...] +---+---+ | | | +---+---+ + +-------+ +---------+---+ + | povidone-iodine 5 % ophthalmic | Given | 12/10/19 | 2 drops | | Eye-Left | | solution PRN, Starting [place] | | 17 9:53 | | | | | 12/09/16 at 0953, Intra-op | | AM PDT | | | | + +-------+ +---------+---+ + +---+---+ | | | +---+---+ + [...] +---+---+ | | | +---+---+ + +-------+ +------+---+ + | triamcinolone acetonide | Given | 12/10/19 | 5 mg | | Eye-Left | | (KENALOG-10) 10 mg/mL injection | | 17 10:07 | | | | | PRN, Starting [facility] 12/09/16 at | | AM PDT | | | | | 1007, Intra-op | | | | | | + +-------+ +------+---+ + +---+---+ | | | +---+---+ + [...] | | | | | | | [facility] 12/09/16 at 0749, For 3 | [...]
--- OUTSIDE RECORDS SUMMARY | ~2020-01-02 | XMS | Encounter Summary ---
Demographics + + + | Address | [address] | | | [place] [address] | + + + | Home Phone | | + + + | Preferred Language | Unknown | + + + | Marital Status | | + + + | Latter Day Affiliation | 1041 | + + + | Race | Unknown | + + + | Ethnic Group | Not or | + + + Author + + + | Author | [facility] | | | and [place] | + + + | Organization | [facility] | | [...] Team Providers + +------+ + | Care Swatch Maker Name | Role | Phone | + +------+ + | Jean Carlos Crowell PA-C | PCP | | + +------+ + Encounter Details +--------+ + + + + | Date | Type | Department | Care Team | Description | +--------+ + + + + | 12/07/ | Orders Only | [facility] | Naseem Umanzor, | | | 2017 | | MED CTR PROVIDER | [address] | | | | | SURGICAL [address] | [place], [place] | | | | | [place], | [address] | | | | | [place] [address] | | | | | | [phone] | | | +--------+ + + + [...] 2020 | Visit | | [address] | | | | | | [address] | | | | | | [place] [address] | | | | | | [phone] | | | | | | | | +--------+---------+ + + + documented as of this encounter Visit Diagnoses Not on filedocumented in this encounter"
--- OUTSIDE RECORDS SUMMARY | ~2020-01-02 | XMS | Encounter Summary ---
Demographics + + + | Address | [address] | | | [place] [address] | + + + | Home Phone | | + + + | Preferred Language | Unknown | + + + | Marital Status | | + + + | Anglican Affiliation | 1041 | + + + | Race | Unknown | + + + | Ethnic Group | Not or | + + + Author + + + | Author | [facility] | | | and [place] | + + + | Organization | [facility] | | [...] Team Providers + +------+ + | Care Public Information Coordinator Name | Role | Phone | + +------+ + | Jean Carlos Crowell PA-C | PCP | | + +------+ + Encounter Details +--------+ + + + + | Date | Type | Department | Care Team | Description | +--------+ + + + + | 12/ | Hospital | [facility] | Conversion | Pain | | 2018 | Encounter | CONVERSION [address] | Transaction, | | | | [address] | Provider Unknown | | | | | [place], [place] | [phone] | | | | | [address] | | | | | | [phone] | | | +--------+ + + + [...] | | 0 | | | | [id number] units CAPS | | | | | [...] 2019 | Visit | | [address] | | | | | | [address] | | | | | | [place] [address] | | | | | | [phone] | | | | | | | | +--------+---------+ + + + documented as of this encounter Procedures + +--------+ + + + | Procedure Name | Priori | Date/Time | Associated Diagnosis | Comments | | | ty | | | | + +--------+ + + + | XR HAND RIGHT 3 + VW | Routin | 02/03/2018 | | Results for this | | | e | 1:38 AM | | procedure are in the | | | | PST | | results section. | + +--------+ + + + documented in this encounter Results XR Hand Right 3 + Vw (02/03/2018 1:38 AM PST) [...]
--- OUTSIDE RECORDS SUMMARY | ~2020-01-02 | XMS | Encounter Summary ---
Demographics + + + | Address | [address] | | | [place] [address] | + + + | Home Phone | | + + + | Preferred Language | Unknown | + + + | Marital Status | | + + + | Judaism Affiliation | CAT | + + + | Race | or | + + + | Ethnic Group | Not or | + + + Author + + + | Author | [facility] | + + + | Organization | [facility] | + + + | Address | Unknown | + + + | Phone | Unavailable | + + + Support + + +---------+ + | Name | Relationship | Address | Phone | + + +---------+ + | Giacomo Washington | ECON | Unknown | | + + +---------+ + Care Team Providers + +------+ + | Care Brick Carrier Name | Role | Phone | + +------+ + | Kendall Ruiz MD | PCP | | + +------+ + Reason for Visit +--------+ + | Reason | Comments | +--------+ + | Preop | | +--------+ + Encounter Details +--------+---------+ + + + | Date | Type | Department | Care Team | Description | +--------+---------+ + + + | 12/23/ | Office | Preoperative | [facility] knutsonel | Other Specified | | 2008 | Visit | [facility] at | A, [facility] | Pre-Operative | | | | [address] 4th Floor [address] | | Examination (Primary | | | | [address] | | Dx) | | | | Mailcode: [facility] | | | | | | [facility] | | | | | | [facility] Healing, | | | | | | Building 1,4th Floor | | | | | | [place], [place] | | | | | | [address] | | | | | | [phone] | | | +--------+---------+ + + + [...] + + + | Blood Pressure | 131/57 | 12/23/2008 3:57 PM | | | | | PDT | | + + + + + | Pulse | 84 | 12/23/2008 3:57 PM | | | | | PDT | | + + + + + | Temperature | 37.1 C (98.8 F) | 12/23/2008 3:57 PM | | | | | PDT | | + + + + + | Respiratory Rate | 14 | 12/23/2008 3:57 PM | | | | | PDT | | + + + + + | Oxygen Saturation | 98% | 12/23/2008 3:57 PM | | | | | PDT | | + + + + + | Inhaled Oxygen | - | - | | | Concentration | | | | + + + + + | Weight | 98.9 kg (218 lb) | 12/23/2008 3:57 PM | | | | | PDT | | + + + + + | Height | 157.5 cm (5' 2") | 12/23/2008 3:57 PM | | | | | PDT | | + + + + + | Body Mass Index | 39.87 | 12/23/2008 3:57 PM | | | | | PDT | | + + + + + documented in this encounter Patient Instructions Patient Instructions Tricia Conway FNP - 12/23/2008 4:37 PM PDTTake medications as b elow morning of surgery: stop ASPIRIN ORAL, Take by mouth. stop CELECOXIB (CELEBREX ORAL), Take by mouth. skip EXENATIDE (BYETTA SUBQ), Inject under the skin (SUBC). skip gemfibrozil 600 mg Oral Tablet, Take 600 mg by mouth two times daily. OK hydrocodone-acetaminophen 7.5-750 mg Oral Tablet, Take 1 Tab by mouth as needed. Not to exceed 5 tablets per any 24 hour period. (Not to exceed 4000 mg of acetaminophen from all products per 24 hour period.) skip INSULIN ASPART SUBQ, Inject under the skin (SUBC). 30-50 sliding scale skip INSULIN GLARGINE,HUM.REC.ANLOG (LANTUS SUBQ), Inject 80 Units under the skin (SUBC). skip losartan (COZAAR) 25 mg Oral Tablet, Take 25 mg by mouth once daily. skip METFORMIN HCL (METFORMIN ORAL), Take by mouth. take omeprazole 20 mg Oral Capsule, Delayed Release(E.C.), Take 20 mg by mouth once daily. OK PAROXETINE HCL (PAXIL ORAL), Take 40 mg by mouth. Pre-operative instructions DIET Nothing to eat or drink after midnight on the night prior to surgery. Your doctor will inst ruct you on what medications to take the morning of surgery. MEDICATIONS Unless otherwise directed by your provider, do not take any Aspirin, vitamin E or non-stero idal anti-inflammatory (NSAIDs i.e. Advil, Aleve, Ibuprofen) or herbal supplements seven day s prior to your surgery. These drugs may interfere with normal blood clotting and may cause excessive bleeding and bruising during or after the surgery. Please see the list below, maren has a list of products that contain Aspirin, Ibuprofen, or Vitamin E If you need a pain medication for general purposes, use Tylenol as directed. If you are in doubt about any medications that you are taking, please contact our office. PRE-OP BATHING/SHOWERING - HIBICLENS (Chlorhexidine Gluconate) Bathe or shower the evening before and the morning of your surgery Use the bottle of Hibiclens soap for the evening cleansing and the bottle in the morn ing Wash from your neck to your toes. BE CAREFUL NOT TO WASH YOUR FACE OR HAIR WITH THIS SOLUTI ON After your shower or bath do not apply lotions, powders, or deodorant SMOKING You should not smoke for four weeks prior to the procedure and two weeks after the procedur e. If you are a smoker, please speak with your provider. Smoking can significantly affect the outcome of your procedure. Smoking near the time of santos rgery causes a more acute narrowing of the blood vessels, which may lead to decreased blood flow to the tissue, poor healing, bad scars, or actual loss of tissue. WHEN TO ARRIVE Check-in times for Hospital Admissions are not available until the day prior to surgery. So meone from your surgeon's office will contact you with your check in time. If you do not hea r from anyone by 3:00 PM please call your surgeons' office for [id number]. PARKING Parking for patients and visitors is available in the [facility] Parking structure located across from the emergency department. Patient parking is available on level 1 and 3. Metere d parking is available on the top level. TRANSPORTATION You will require transportation home on the day of discharge. Pain medications and physical activity restrictions may limit your ability to drive safely. CANCELLING YOUR PROCEDURE Please notify your surgeons's office as soon as possible should you need to cancel or lee e your surgery date. We will attempt to reschedule your procedure in a timely manner however due to a limited amount of operating room time a waiting list is not uncommon. ILLNESS Please call your surgeons's office with any signs of illness such as cold, flu, infection, fever, or skin rash/infection anytime prior to your surgery. ADDITIONAL ADVICE FOR DAY OF SURGERY: Remove nail maltese from at least one fingernail (if applicable) Do not wear any jewelry to the hospital. Leave all your valuables at home! Wear loose, comfortable clothing. Allow enough travel time so you arrive at your check-in location on time. THINGS TO DO AFTER SURGERY: To prevent pneumonia, use an incentive spirometer or "peep breathe" to keep your lungs w orking properly and to help prevent respiratory complications. Use it 3-5 times an hour whi le awake. To prevent blood clots, leg and feet exercises will help maintain good circulation. Someti me your doctor will order "air compression stockings" to help the circulation in your legs. Registration Locations (please check in at one of the following registration desks prior to surgery) [place] [facility]: Surgeries scheduled in the [facility] ([address] [place] [address]): registration is located on the 4th floor of [facility] (Day Surgery). Surgeries scheduled in the [facility]: registration is located on the 9th floor . For surgeries scheduled to take place at the [facility]: registration i s located on the 4th floor (Surgery Center). AVOID THESE MEDICATIONS FOR 7 DAYS BEFORE SURGERY PRODUCTS CONTAINING ASPIRIN [place] [employer], Anacin, Anexsia with Codeine, Valeriy nos, Aspirin, Aspirin suppositories, Ascri ptin, Aspergum, Axotal, B-A-C, Baby Aspirin, Thor, BC Powder, Bexophene, Buffaprin, Bufferi n, Buffinol, Cama-Arthritis Strength, Congespirin, [place], Coricidin, Damason, Darvon, Dristan , Annalee-Gesic, Digel, Dolprin #3 Tablets, Donatab, Doxaphene, Duragesic, Easprin, Ecotrin, Ana grin Forte, Emiprin, Emprazil, Equagesic, Equazine M, Excedrin, Fiogesic, Fiorgen PH, Fioric et, Fiorinal, 4-Way Cold Tablet Gemnisyn, Indocin, Liquprin, Lortab ASA, Magnaprin, Marnal, Meprobamate, Midol, Momentum, N orgesic, Hammond, Orphengesic, Pabalate, P-A-C, Percodan, Presalin, Robaxasil, Roxiprin, Mychal eto, Salocol SK-65 Compound, Sine-Aid, Sine-Off,, Sandoval, Supac, Talwin Compound, Trigesic, Tolectin , Traiminicin, Vanquish, ZORprin, Zomax PRODUCTS CONTAINING IBUPROFEN Advil, Aleve, Haltran, Medipren, Midol, Motrin, Naproxyn, Nuprin, Rufen OTHER PRODUCTS WHICH MAY PROMOTE BLEEDING Vitamin E, Gingko Biloba, Marine Fatty Acids, [place]-3 Fish Oil Supplements documented in this encounter Progress Notes Tricia Conway FNP - 12/23/2008 5:12 PM PDTPlease see scanned Preop H & P in the "Med ia" tab under ANESTHESIA PREOP EVALUATION. [facility] [address] [facility] [address] Facility Fee Documentation The patient was checked-in and roomed. The following were done: chief complaint (1), pain evaluation (1), height (1), weight (1), pulse (1), blood pressur e (1), temperature (1), O2 sat (1), pre- anesthesia questionnaire explained (1), medication reviewed >5 (2), allergy review <5 (1) and tobacco history (1) We engaged the patient in direct education on the following topics: pre-op medication management and bathing (Hibiclense instruction) Time spent educating the patient on the above: 10- 15 minutes (3) Additional activities related to this visit: none Facility level codin- 25 points- Level 4 documented in thi s encounter Plan of Treatment Not on filedocumented as of this encounter Procedures + +--------+ + + + | Procedure Name | Priori | Date/Time | Associated Diagnosis | Comments | | | ty | | | | + +--------+ + + + | 12 LEAD ECG | Routin | 12/23/2008 | Other specified | Results for this | | | e | 4:00 PM | pre-operative | procedure are in the | | | | PDT | examination | results section. | + +--------+ + + + documented in this encounter Results HEMOGLOBIN A1C, BLOOD (12/23/2008 4:43 PM PDT) + +---------+ + + + | Component | Value | Ref Range | Performed | Pathologist | | | | | At | Signature | + +---------+ + + + | HEMOGLOBIN | 9.4 (H) | <5.8 % | | | | A1C | | | | | + +---------+ + + + + + | Specimen | + + | Blood - Blood | + + + + + | Narrative | Performed At | + + + | Non-Diabetic: | [facility] | | 4.0 - 5.7% Risk For Chronic Complications | DEPARTMENT OF | | In Adults: Low | PATHOLOGY | | <7.0% | | | Medium 7.0-7.9% | | | High >7.9% RLB | | | ([employer] [facility]) [facility] [place] [address] | | | [place] [address] | | + + + + + + + + | Performing | Address | City/State/Zipcode | Phone Number | | Organization | | | | + + + + + | [facility]MENT [facility] | [address] | [place] [address] | | | PATHOLOGY | [address] | | | + + + + + | [facility] DEPARTMENT OF | [address] | [place] [address] | | | PATHOLOGY | [address] | | | + + + + + CBC ONLY (12/23/2008 4:43 PM PDT) + +---------+ + + + | Component | Value | Ref Range | Performed | Pathologist | | | | | At | Signature | + +---------+ + + + | WHITE CELL | 9.1 | 4.4 - 11.0 K/cu | [facility] | | | COUNT | | mm | DEPARTMENT | | | | | | OF | | | | | | PATHOLOGY | | + +---------+ + + + | RED CELL | 4.39 | 4.00 - 5.20 | [facility] | | | COUNT | | M/cu mm | DEPARTMENT | | | | | | OF | | | | | | PATHOLOGY | | + +---------+ + + + | HEMOGLOBIN | 13.4 | 12.0 - 16.0 | [facility] | | | | | g/dL | DEPARTMENT | | | | | | OF | | | | | | PATHOLOGY | | + +---------+ + + + | HEMATOCRIT | 39.6 | 36.0 - 46.0 % | [facility] | | | | | | DEPARTMENT | | | | | | OF | | | | | | PATHOLOGY | | + +---------+ + + + | MCV | 90.2 | 80.0 - 96.0 fL | [facility] | | | | | | DEPARTMENT | | | | | | OF | | | | | | PATHOLOGY | | + +---------+ + + + | MCHC | 33.8 | 33.4 - 35.5 | [facility] | | | | | g/dL | DEPARTMENT | | | | | | OF | | | | | | PATHOLOGY | | + +---------+ + + + | RDW | 14.5 | 11.5 - 15.0 % | [facility] | | | | | | DEPARTMENT | | | | | | OF | | | | | | PATHOLOGY | | + +---------+ + + + | PLATELET | 406 (H) | 150 - 400 K/cu | [facility] | | | COUNT | | mm | DEPARTMENT | | | | | | OF | | | | | | PATHOLOGY | | + +---------+ + + + + + | Specimen | + + | Blood - Blood | + + + + + + + | Performing | Address | City/State/Zipcode | Phone Number | | Organization | | | | + + + + + | [facility] DEPARTMENT OF | [address] | [place] [address] | | | PATHOLOGY | [address] | | | + + + + + | [facility] DEPARTMENT | [address] | [place] [address] | | | PATHOLOGY | [address] | | | + + + + + BASIC METABOLIC SET (NA, K, CL, TCO2, BUN, CR, GLU, CA) (12/23/2008 4:43 PM PDT) + + + + + + | Component | Value | Ref Range | Performed | Pathologist | | | | | At | Signature | + + + + + + | GLUCOSE, | 114 (H) | 60 - 99 mg/dL | [facility] | | | PLASMA | | | DEPARTMENT | | | (LAB) | | | OF | | | | | | PATHOLOGY | | + + + + + + | BUN, PLASMA | 12 | 6 - 20 mg/dL | [facility] | | | (LAB) | | | DEPARTMENT | | | | | | OF | | | | | | PATHOLOGY | | + + + + + + | CREATININE | 0.57 (L) | 0.60 - 1.10 | [facility] | | | PLASMA | | mg/dL | DEPARTMENT | | | (LAB) | | | OF | | | | | | PATHOLOGY | | + + + + + + | SODIUM, | 140 | 134 - 143 | [facility] | | | PLASMA | | mmol/L | DEPARTMENT | | | (LAB) | | | OF | | | | | | PATHOLOGY | | + + + + + + | POTASSIUM, | 4.4 | 3.4 - 5.0 | [facility] | | | PLASMA | | mmol/L | DEPARTMENT | | | (LAB) | | | OF | | | | | | PATHOLOGY | | + + + + + + | CHLORIDE, | 103 | 97 - 108 mmol/L | [facility] | | | PLASMA | | | DEPARTMENT | | | (LAB) | | | OF | | | | | | PATHOLOGY | | + + + + + + | CALCIUM, | 9.3 | 8.6 - 10.2 | [facility] | | | PLASMA | | mg/dL | DEPARTMENT | | | (LAB) | | | OF | | | | | | PATHOLOGY | | + + + + + + | TOTAL CO2, | 27 | 23 - 31 mmol/L | [facility] | | | PLASMA | | | DEPARTMENT | | | (LAB) | | | OF | | | | | | PATHOLOGY | | + + + + + + | EGFR | > 60 | >60 mL/min | [facility] | | | - | | | DEPARTMENT | | | [facility] | | | OF | | | | | | PATHOLOGY | | + + + + + + | EGFR NON | > 60Comment: GFR is | >60 mL/min | [facility] | | | -ESPERANZA | estimated using the MDRD | | DEPARTMENT | | | RICAN | equation recommended by | | OF | | | | theNational Kidney | | PATHOLOGY | | | | Disease Education | | | | | | Program. Estimated GFR | | | | | | Interpretive | | | | | | Information: <60 | | | | | | mL/min/1.73 sq m | | | | | | Chronic Kidney Disease | | | | | | <15 mL/min/1.73 sq m | | | | | | Kidney Failure | | | | | | Estimated GFR greater | | | | | | than 60mL/min/1.73 is of | | | | | | limited clinical Value. | | | | | | The MDRD equation is | | | | | | not valid in the | | | | | | following situations: - | | | | | | Patients under 18 years | | | | | | of age - Severe | | | | | | malnutrition or obesity | | | | | | - Vegetarian diet - | | | | | | Rapidly changing kidney | | | | | | function | | | | + + + + + + + + | Specimen | + + | Blood - Blood | + + + + + + + | Performing | Address | City/State/Zipcode | Phone Number | | Organization | | | | + + + + + | [facility] | [address] [facility] | [place] [address] | | | PATHOLOGY | [address] | | | + + + + + | [facility] | [facility] [facility] | [place] [address] | | | PATHOLOGY | [address] | | | + + + + + 12 LEAD ECG (12/23/2008 4:00 PM PDT) + + + + + + | Component | Value | Ref Range | Performed | Pathologist | | | | | At | Signature | + + + + + + | VENTRICULAR | 84 | BPM | [facility] | | | RATE | | | OF | | | | | | CARDIOLOGY | | + + + + + + | ATRIAL RATE | 84 | BPM | [facility] | | | | | | OF | | | | | | CARDIOLOGY | | + + + + + + | P-R | 142 | ms | [facility] | | | INTERVAL | | | OF | | | | | | CARDIOLOGY | | + + + + + + | QRS | 70 | ms | [facility] | | | DURATION | | | OF | | | | | | CARDIOLOGY | | + + + + + + | QT | 370 | ms | [facility] | | | | | | OF | | | | | | CARDIOLOGY | | + + + + + + | QTC | 437 | ms | [facility] | | | | | | OF | | | | | | CARDIOLOGY | | + + + + + + | P AXIS | 57 | degrees | [facility] | | | | | | OF | | | | | | CARDIOLOGY | | + + + + + + | R AXIS | 45 | degrees | [facility] | | | | | | OF | | | | | | CARDIOLOGY | | + + + + + + | T AXIS | 40 | degrees | [facility] | | | | | | OF | | | | | | CARDIOLOGY | | + + + + + + | EKG | Normal sinus | | [facility] | | | DIAGNOSIS | rhythmNormal ECG"I have | | OF | | | | personally interpreted | | CARDIOLOGY | | | | this report, either | | | | | | alone or with a | | | | | | trainee."Confirmed by | | | | | | JESÚS JONES ([id number]) on | | | | | | 25-Dec-2008 11:37:19 | | | | + + + + + + | LINK TO | | | [facility] | | | [facility] | | | OF | | | (ECG | | | CARDIOLOGY | | | VIEWER) | | | | | + + + + + + + + | Specimen | + + | | + + + + + | Narrative | Performed At | + + + | Please click | [facility] OF | | on view image for the detailed interpretation from [employer] results. | CARDIOLOGY | | | | + + + + + + + + | Performing | Address | City/State/Zipcode | Phone Number | | Organization | | | | + + + + + | [facility] | [address] | [place], [place] | | | CARDIOLOGY | [address] | [address] | | + + + + + | [facility] OF | [address] | [place], [place] | | | CARDIOLOGY | [facility] | [phone] | | + + + + + documented in this encounter Visit Diagnoses + + | Diagnosis | + + | Other specified pre-operative examination - Primary | + + documented in this encounter
--- OUTSIDE RECORDS SUMMARY | ~2020-01-02 | XMS | Encounter Summary ---
Demographics + + + | Address | [address] | | | [place] [address] | + + + | Home Phone | | + + + | Preferred Language | Unknown | + + + | Marital Status | | + + + | Mandaen Affiliation | 1041 | + + + | Race | Unknown | + + + | Ethnic Group | Not or | + + + Author + + + | Author | [facility] | | | and [place] | + + + | Organization | [facility] | | | [...] Providers + +------+ + | Care Welding Equipment Sales Representative Name | Role | Phone | + +------+ + | Jean Carlos Crowell PA-C | PCP | | + +------+ + Encounter Details +--------+ + + + + | Date | Type | Department | Care Team | Description | +--------+ + + + + | 05/29/ | Orders Only | [facility] | Alyssamarielos, | | | 2018 | | RHEUMATOLOGY [address] | [address] | | | | | [address] | [address] | | | | | [place], [place] | [place] [address] | | | | | [address] | [phone] | | | | | [phone] | | | +--------+ + + + [...] [address] | | | | | | [place] [address] | | | | | | [phone] | | | | | | | | +--------+---------+ + + + documented as of this encounter Procedures + +--------+ + + + | Procedure Name | Priori | Date/Time | Associated Diagnosis | Comments | | | ty | | | | + +--------+ + + + | EXTERNAL LAB: CBC | Routin | 05/29/2018 | | Results for this | | | e | 9:48 AM | | procedure are in the | | | | PST | | results section. | + +--------+ + + + | SEDIMENTATION RATE, | Routin | 05/29/2018 | | Results for this | | AUTOMATED | e | 9:48 AM | | procedure are in the | | | | PST | | results section. | + +--------+ + + + | COMPREHENSIVE | Routin | 05/29/2018 | | Results for this | | METABOLIC PANEL | e | 9:48 AM | | procedure are in the | | | | PST | | results section. | + +--------+ + + + | URINALYSIS WITH | Routin | 05/29/2018 | | Results for this | | MICROSCOPIC IF | e | 9:47 AM | | procedure are in the | | INDICATED | | PST | | results section. | + +--------+ + + + | HEPATITIS PANEL, | Routin | 05/29/2018 | | Results for this | | CHRONIC | e | 9:46 AM | | procedure are in the | | | | PST | | results section. | + +--------+ + + + documented in this encounter Results Sedimentation rate, automated (05/29/2018 9:48 AM PST) + +--------+ + + + | Component | Value | Ref Range | Performed | Pathologist | | | | | At | Signature | + +--------+ + + + | Sed Rate | 75 (H) | 0 - 30 mm/h | [...] + +---------+ + + External Lab: CBC (05/29/2018 9:48 AM PST) + + + + + + | Component | Value | Ref Range | Performed | Pathologist | | | | | At | Signature | + + + + + + | WBC | 10.84 | 3.80 - 11.00 | EXTERNAL | | | | | 10*3/uL | LAB | | + + + + + + | Non- | 3.78 | 3.70 - 5.10 | EXTERNAL | | | Red Blood | | 10*6/uL | LAB | | | Cells | | | | | | Counted | | | | | + + + + + + | Hemoglobin | 11.6 | 11.3 - 15.5 | EXTERNAL | | | | | g/dL | LAB | | + + + + + + | Hematocrit, | 35.2 | 34.0 - 46.0 % | EXTERNAL | | | POC | | | LAB | | + + + + + + | MCV | 93.1 | 80.0 - 100.0 fL | EXTERNAL | | | | | | LAB | | + + + + + + | MCH | 30.6 | 27.0 - 34.0 pg | EXTERNAL | | | | | | LAB | | + + + + + + | MCHC | 32.9 | 32.0 - 35.5 | EXTERNAL | | | | | g/dL | LAB | | + + + + + + | RDW-CV | 53.8 (H) | 37 - 53 fL | EXTERNAL | | | | | | LAB | | + + + + + + | Platelet | 444 (H) | 150 - 400 | EXTERNAL | | | Count | | 10*3/uL | LAB | | | Plasma | | | | | + + + + + + | MPV | 7.1 | fL | EXTERNAL | | | | | | LAB | | + + + + + + | Differentia | AUTOMATED | | EXTERNAL | | | l Type | | | LAB | | + + + + + + | % Segmented | 77.07 | % | EXTERNAL | | | | | | LAB | | | Neutrophils | | | | | + + + + + + | % | 17.32 | % | EXTERNAL | | | Lymphocytes | | | LAB | | + + + + + + | % Monocytes | 3.68 | % | EXTERNAL | | | | | | LAB | | + + + + + + | % | 0.83 | % | EXTERNAL | | | Eosinophils | | | LAB | | + + + + + + | % Basophils | 1.10 | % | EXTERNAL | | | | | | LAB | | + + + + + + | Absolute | 8.36 (H) | 1.90 - 7.40 | EXTERNAL | | | Segmented | | 10*3/uL | LAB | | | Neutrophils | | | | | + + + + + + | Absolute | 1.88 | 1.00 - 3.90 | EXTERNAL | | | Lymphocytes | | 10*3/uL | LAB | | + + + + + + | Absolute | 0.40 | 0.00 - 0.80 | EXTERNAL | | | Monocytes | | 10*3/uL | LAB | | + + + + + + | Absolute | 0.09 | 0.00 - 0.50 | EXTERNAL | | | Eosinophils | | 10*3/uL | LAB | | + + + + + + | Absolute | 0.12 (H) | 0.00 - 0.10 | EXTERNAL | [...] + +---------+ + + Comprehensive Metabolic Panel (05/29/2018 9:48 AM PST) + + + + + + | Component | Value | Ref Range | Performed | Pathologist | | | | | At | Signature | + + + + + + | Na | 144 | 135 - 145 | EXTERNAL | | | | | mmol/L | LAB | | + + + + + + | K | 4.7 | 3.5 - 4.9 | EXTERNAL | | | | | mmol/L | LAB | | + + + + + + | Cl | 112 (H) | 99 - 109 mmol/L | EXTERNAL | | | | | | LAB | | + + + + + + | CO2 | 24 | 23 - 32 mmol/L | EXTERNAL | | | | | | LAB | | + + + + + + | Anion Gap | 13 | 5 - 20 mmol/L | EXTERNAL | | | | | | LAB | | + + + + + + | Glucose, | 105 (H) | 65 - 99 mg/dL | EXTERNAL | | | Fasting | | | LAB | | + + + + + + | BUN | 20 | 8 - 25 mg/dL | EXTERNAL | | | | | | LAB | | + + + + + + | Creatinine | 0.8 | 0.50 - 1.00 | EXTERNAL | | | | | mg/dL | LAB | | + + + + + + | BUN/Creatin | 25 | | EXTERNAL | | | ine Ratio | | | LAB | | + + + + + + | Calcium | 9.2 | 8.5 - 10.5 | EXTERNAL | | | | | mg/dL | LAB | | + + + + + + | Protein, | 7.3 | 6.3 - 8.2 g/dL | EXTERNAL | | | Total | | | LAB | | + + + + + + | Albumin | 3.5 | 3.3 - 4.8 g/dL | EXTERNAL | | | | | | LAB | | + + + + + + | Globulin | 3.8 | 1.3 - 4.9 g/dL | EXTERNAL [...] + + + + | ALP, | 145 (H) | 35 - 115 U/L | EXTERNAL | | | External | | | LAB | | + + + + + + | AST | 14 | 10 - 45 U/L | EXTERNAL | | | | | | LAB | | + + + + + + | ALT | 15 | 10 - 65 U/L | EXTERNAL [...] | | | | using the MDRD IDPR | | | | | | traceable [...] | | | + +---------+ + + Urinalysis with Microscopic if Indicated (05/29/2018 9:47 AM PST) + + + + + + | Component | Value | Ref Range | Performed | Pathologist | | | | | At | Signature | + + + + + + | Color | YELLOW | | EXTERNAL | | | | | | LAB | | + + + + + + | Clarity, | CLEAR | | EXTERNAL | | | Urine | | | LAB | | + + + + + + | Specific | 1.016 | 1.002 - 1.030 | EXTERNAL | | | [place], | | | LAB | | | Urine | | | | | + + + + + + | Leukocyte | NEGATIVEComment: | | EXTERNAL | | | Esterase, | | | LAB | | | Urine | | | | | + + + + + + | Nitrite, | NEGATIVE | | EXTERNAL | | | Urine | | | LAB | | + + + + + + | Urobilinoge | NORMAL | mg/dL | EXTERNAL | | | n, Urine | | | LAB | | + + + + + + | Protein, | NEGATIVE | mg/dL | EXTERNAL | | | Urine | | | LAB | | + + + + + + | pH, Urine | 5.0 | 5.0 - 8.0 | EXTERNAL | | | | | | LAB | | + + + + + + | Blood, | NEGATIVE | | EXTERNAL | | | Urine | | | LAB | | + + + + + + | Ketones | NEGATIVE | mg/dL | EXTERNAL | | | | | | LAB | | + + + + + + | Bilirubin, | NEGATIVE | | EXTERNAL | | | Urine | | | LAB | | + + + + + + | Glucose, | 150 (A) | mg/dL | EXTERNAL | | | Urine | | | LAB | | + + + + + + + + | Specimen | + + | Urine specimen | | (specimen) | + + + +---------+ + + | Performing | Address | City/State/Zipcode | Phone Number | | Organization | | | | + +---------+ + + | EXTERNAL LAB | | | | + +---------+ + + Hepatitis Panel, Chronic (05/29/2018 9:46 AM PST) + + + + + + | Component | Value | Ref Range | Performed | Pathologist | | | | | At | Signature | + + + + + + | Hep A Total | NON REACTIVE | | EXTERNAL | | | Ab Interp | | | LAB | | + + + + + + | HEP B | NON REACTIVE | | EXTERNAL | | | SURFACE | | | LAB | | | ANTIBODY | | | | | + + + + + + | Hepatitis B | NON REACTIVE | | EXTERNAL | | | Core Ab | | | LAB | | | Total | | | | | + + + + + + | HEP B | 0.71Comment: <1.00 | {index_val} | EXTERNAL | | | SURFACE | Non Immune1.00 OR | | LAB | | | ANTIBODY | MORE Indicates | | | | | | vaccine response or | | | | | | response to HBV | | | | | | infection. An Index | | | | | | Value (IV) of 1.00 is | | | | | | equivalent to 10 mIU/mL. | | | | | | Samples with an IV of | | | | | | 1.00 or greater are | | | | | | considered reactive | | | | | | (protected) in | | | | | | accordance with CDC | | | | | | Guidelines. | | | | + + + + + + | HCV Ab | NON REACTIVE | | EXTERNAL | | | | | | LAB | | + + + + + + | Hepatitis | No serologic evidence of | | EXTERNAL | | | Interpretat | HAV, HBV, or HCV | | LAB | | | ion | infection. | | | | + + + [...]
--- OUTSIDE RECORDS SUMMARY | ~2020-01-02 | XMS | Encounter Summary ---
Demographics + + + | Address | [address] | | | [place] [address] | + + + | Home Phone [...] + + + | Author | [facility] | | | and [place] | + + + | Organization | [facility] | | [...] Team Providers + +------+ + | Care Band Top Maker Name | Role | Phone | + +------+ + | Jean Carlos Crowell PA-C | PCP | | + +------+ + Encounter Details +--------+ + + + + | Date | Type | Department | Care Team | Description | +--------+ + + + + | 05/21/ | Orders Only | [facility] | Camilla Jorgewillowtess | 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, [employer]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) drug | | | | [place] | | therapy; Rheumatoid | | | | [phone] | | arthritis of | | | | [phone] | | multiple sites | | | | | | without rheumatoid | | | | | | factor (HCC); | | | | | | Rheumatoid arthritis | | | | | | of multiple sites | | | | | | with negative | | | | | | rheumatoid factor | | | | | | (HCC); High risk | | | | | | medication use; | | | | | | Scl-70 antibody | | | | | | positive | +--------+ + + + + Social [...] 2019 | Visit | | [facility] [address] | | | | | | [address] | | | | | | [place] [address] | | | | | | [phone] | | | | | | | | +--------+---------+ + + + documented as of this encounter Procedures + +--------+ + + + | Procedure Name | Priori | Date/Time | Associated Diagnosis | Comments | | | ty | | | | + +--------+ + + + | SEDIMENTATION RATE | Routin | 05/21/2019 | Other long-term | Results for this | | | e | 9:58 AM | (current) drug | procedure are in the | | | | PST | therapy Rheumatoid | results section. | | | | | arthritis of | | | | | | multiple sites | | | | | | without rheumatoid | | | | | | factor (HCC) | | + +--------+ + + + | C-REACTIVE PROTEIN | Routin | 05/21/2019 | Rheumatoid | Results for this | | | e | 9:58 AM | arthritis of | procedure are in the | | | | PST | multiple sites with | results section. | | | | | negative rheumatoid | | | | | | factor (HCC) High | | | | | | risk medication use | | | | | | Scl-70 antibody | | | | | | positive | | + +--------+ + + + documented in this encounter Results C-Reactive Protein (05/21/2019 9:58 AM PST) + + + + + + | Component | Value | Ref Range | Performed | Pathologist | | | | | At | Signature | + + + + + + | CRP | 3.2 (H)Comment: Testing | <0.5 mg/dL | REFERENCE | | | | performed at [facility];[address] | | LAB | | | | [place] | | [facility] | | | | [address];[place] [address] | | LABORATORY | | + + + + + + + + | Specimen | + + | Blood | + + + + + + + | Performing | Address | City/State/Zipcode | Phone Number | | Organization | | | | + + + + + | REFERENCE LAB | [address] [facility] [facility] | [place] | [phone] | | [facility] | [address] | [address] | | | LABORATORY | | | | + + + + + | REFERENCE LAB | [address] [facility] | [place] | | | [facility] | [address] | [address] | | | LABORATORY | | | | + + + + + Sedimentation Rate (05/21/2019 9:58 AM PST) + + + + + + | Component | Value | Ref Range | Performed | Pathologist | | | | | At | Signature | + + + + + + | ESR | 75 (H)Comment: Testing | 0 - 30 mm/Hr | REFERENCE | | | | performed at [facility];[address] | | LAB | | | | [place] | | [facility] | | | | [address];[place] [address] | | LABORATORY | | + + + + + + + + | Specimen | + + | Blood | + + + + + + + | Performing | Address | City/State/Zipcode | Phone Number | | Organization | | | | + + + + + | REFERENCE LAB | [address] [place] [address] | [place] | [phone] | | [facility] | [address] | [address] | | | LABORATORY | | | | + + + + + | REFERENCE LAB | [address] [place] [address] | [place] | | | [facility] | [address] 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
--- OUTSIDE RECORDS SUMMARY | ~2020-01-02 | XMS | Encounter Summary ---
Demographics + + + | Address | [address] | | | [place] [address] | + + + | Home Phone | | + + + | Preferred Language | Unknown | + + + | Marital Status | | + + + | Scientology Affiliation | 1041 | + + + | Race | Unknown | + + + | Ethnic Group | Not or | + + + Author + + + | Author | [facility] | | | and [place] | + + + | Organization | [facility] | | | [...] Team Providers + +------+ + | Care Environmental Intern Name | Role | Phone | + +------+ + | Jean Carlos Crowell PA-C | PCP | | + +------+ + Encounter Details +--------+ + + + + | Date | Type | Department | Care Team | Description | +--------+ + + + + | 01/08/ | Orders Only | [facility] | Jean Carlos Wlal, | Rheumatoid arthritis | | 2019 | | [address] | [address] | of multiple sites | | | | [place], [place] | | with negative | | | | [address] | | rheumatoid factor | | | | [phone] | | (HCC); High risk | | | | | | medication use; | | | | | | 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 | | | | | | (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) drug | | | | | | therapy; Rheumatoid | | | | | | arthritis of | | | | | | multiple sites | | | | | | without rheumatoid | | | | | | factor (HCC) | +--------+ + + + + Social [...] | | | | | [address] | | | | | | [place] [address] | | | | | | [phone] | | | | | | | | +--------+---------+ + + + documented as of this encounter Procedures + +--------+ + + + | Procedure Name | Priori | Date/Time | Associated Diagnosis | Comments | | | ty | | | | + +--------+ + + + | SEDIMENTATION RATE | Routin | 01/08/2019 | 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 | | | | | arthritis of | | | | | | multiple sites | | | | | | without rheumatoid | | | | | | factor (HCC) | | + +--------+ + + + | C-REACTIVE PROTEIN | Routin | 01/08/2019 | Rheumatoid | Results for this | | | e | 9:51 AM | arthritis of | procedure are in the | | | | PDT | multiple sites with | results section. 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 | | | | | arthritis of | | | | | | multiple sites | | | | | | without rheumatoid | | | | | | factor (HCC) | | + +--------+ + + + documented in this encounter Results CBC with Differential (01/08/2019 9:51 AM PDT) + + + + + + | Component | Value | Ref Range | Performed | Pathologist | | | | | At | Signature | + + + + + + | WBC | 8.43 | 3.80 - 11.00 | REFERENCE | | | | | K/uL | LAB | | | | | | [facility] | | | | | | LABORATORY | | + + + + + + | Red Blood | 3.60 (L) | 3.70 - 5.10 | REFERENCE | | | Cells | | M/uL | LAB | | | | | | [facility] | | | | | | LABORATORY | | + + + + + + | Hemoglobin | 11.2 (L) | 11.3 - 15.5 | REFERENCE | | | | | g/dL | LAB | | | | | | [facility] | | | | | | LABORATORY | | + + + + + + | Hematocrit | 33.4 (L) | 34.0 - 46.0 % | REFERENCE | | | | | | LAB | | | | | | [facility] | | | | | | LABORATORY | | + + + + + + | MCV | 92.8 | 80.0 - 100.0 fl | REFERENCE | | | | | | LAB | | | | | | [facility] | | | | | | LABORATORY | | + + + + + + | MCH | 31.1 | 27.0 - 34.0 pg | REFERENCE | | | | | | LAB | | | | | | [facility] | | | | | | LABORATORY | | + + + + + + | MCHC | 33.5 | 32.0 - 35.5 | REFERENCE | | | | | g/dL | LAB | | | | | | [facility] | | | | | | LABORATORY | | + + + + + + | RDW-SD | 54.3 (H) | 37 - 53 fl | REFERENCE | | | | | | LAB | | | | | | [facility] | | | | | | LABORATORY | | + + + + + + | Platelet | 405 (H) | 150 - 400 K/uL | REFERENCE | | | Count | | | LAB | | | | | | [facility] | | | | | | LABORATORY | | + + + + + + | MPV | 7.1 | fl | REFERENCE | | | [...] + + + + | % | 75.58 | % | REFERENCE | | | Neutrophils | | | LAB | | | | | | [facility] | | | | | | LABORATORY | | + + + + + + | % | 17.83 | % | REFERENCE | | | Lymphocytes | | | LAB | | | | | | [facility] | | | | | | LABORATORY | | + + + + + + | Monocyte % | 5.05 | % | REFERENCE | | | | | | LAB | | | | | | [facility] | | | | | | LABORATORY | | + + + + + + | Eosinophils | 0.89 | % | REFERENCE | | | % | | | LAB | | | | | | [facility] | | | | | | LABORATORY | | + + + + + + | Basophils % | 0.65 | % | REFERENCE | | | | | | LAB | | | | | | [facility] | | | | | | LABORATORY | | + + + + + + | Neutrophils | 6.37 | 1.90 - 7.40 | REFERENCE | | | , Absolute | | K/uL | LAB | | | | | | [facility] | | | | | | LABORATORY | | + + + + + + | Absolute | 1.50 | 1.00 - 3.90 | REFERENCE | | | Lymphocytes | | K/uL | LAB | | | | | | [facility] | | | | | | LABORATORY | | + + + + + + | Absolute | 0.43 | 0.00 - 0.80 | REFERENCE | | | Monocytes | | K/uL | LAB | | | | | | [facility] | | | | | | LABORATORY | | + + + + + + | Eosinophils | 0.08 | 0.00 - 0.50 | REFERENCE | | | , Absolute | | K/uL | LAB | | | | | | [facility] | | | | | | LABORATORY | | + + + + + + | Basophils, | 0.06Comment: Testing | 0.00 - 0.10 | REFERENCE | | | Absolute | performed at [facility];[address] | K/uL | LAB | | | | [place] | | [facility] | | | | [address];[place] [address] | | LABORATORY | | + + + + + + + + | Specimen | + + | Blood | + + + + + + + | Performing | Address | City/State/Zipcode | Phone Number | | Organization | | | | + + + + + | REFERENCE LAB | [address] [place] [address] | [place] | [phone] | | [facility] | [address] | [address] | | | LABORATORY | | | | + + + + + | REFERENCE LAB | [address] [facility] | [place] | | | [facility] | [address] | [address] | | | LABORATORY | | | | + + + + + Comprehensive Metabolic Panel (01/08/2019 9:51 AM PDT) + + + + + + | Component | Value | Ref Range | Performed | Pathologist | | | | | At | Signature | + + + + + + | Na | 142 | 135 - 145 | REFERENCE | | | | | mmol/L | LAB | | | | | | [facility] | | | | | | LABORATORY | | + + + + + + | K | 5.0 (H) | 3.5 - 4.9 | REFERENCE | | | | | mmol/L | LAB | | | | | | [facility] | | | | | | LABORATORY | | + + + + + + | Cl | 113 (H) | 99 - 109 mmol/L | REFERENCE | | | | | | LAB | | | | | | [facility] | | | | | | LABORATORY | | + + + + + + | CO2 | 24 | 23 - 32 mmol/L | REFERENCE | | | | | | LAB | | | | | | [facility] | | | | | | LABORATORY | | + + + + + + | Anion Gap | 10 | 5 - 20 mmol/L | REFERENCE | | | | | | LAB | | | | | | [facility] | | | | | | LABORATORY | | + + + + + + | Glucose | 83 | 65 - 99 mg/dL | REFERENCE | | | | | | LAB | | | | | | [facility] | | | | | | LABORATORY | | + + + + + + | BUN | 18 | 8 - 25 mg/dL | REFERENCE | | | | | | LAB | | | | | | [facility] | | | | | | LABORATORY | | + + + + + + | Creatinine | 0.8 | 0.50 - 1.00 | REFERENCE | | | | | mg/dL | LAB | | | | | | [facility] | | | | | | LABORATORY | | + + + + + + | BUN/Creatin | 23 | | REFERENCE | | | ine Ratio | | | LAB | | | | | | [facility] | | | | | | LABORATORY | | + + + + + + | Calcium | 9.0 | 8.5 - 10.5 | REFERENCE | | | | | mg/dL | LAB | | | | | | [facility] | | | | | | LABORATORY | | + + + + + + | Protein, | 7.3 | 6.3 - 8.2 g/dL | REFERENCE | | | Total | | | LAB | | | | | | [facility] | | | | | | LABORATORY | | + + + + + + | Albumin | 3.3 | 3.3 - 4.8 g/dL | REFERENCE | | | | | | LAB | | | | | | [facility] | | | | | | LABORATORY | | + + + + + + | Globulin | 4.0 | 1.3 - 4.9 g/dL | REFERENCE | | | | | | LAB | | | | | | [facility] | | | | | | LABORATORY | | + + + + + + | A/G Ratio | 0.8 (L) | 1.0 - 2.4 | REFERENCE | | | | | | LAB | | | | | | [facility] | | | | | | LABORATORY | | + + + + + + | BILIRUBIN, | 0.2 | 0.1 - 1.5 mg/dL | REFERENCE | | | TOTAL | | | LAB | | | | | | [facility] | | | | | | LABORATORY | | + + + + + + | ALK PHOS | 116 (H) | 35 - 115 U/L | REFERENCE | | | | | | LAB | | | | | | [facility] | | | | | | LABORATORY | | + + + + + + | AST | 13 | 10 - 45 U/L | REFERENCE | | | | | | LAB | | | | | | [facility] | | | | | | LABORATORY | | + + + + + + | ALT | 14 | 10 - 65 U/L | REFERENCE [...] | | | | | performed at [facility];[address] | | | | | | [facility] | | | | | | [facility];[place] [address] | | | | | | | | | | + + + + + + + + | Specimen | + + | Blood | + + + + + + + | Performing | Address | City/State/Zipcode | Phone Number | | Organization | | | | + + + + + | REFERENCE LAB | [facility] | [place] | [phone] | | [facility] | [address] | [address] | | | LABORATORY | | | | + + + + + | REFERENCE LAB | [facility] | [place] | | | [facility] | [address] | [address] | | | LABORATORY | | | | + + + + + Sedimentation Rate (01/08/2019 9:51 AM PDT) + + + + + + | Component | Value | Ref Range | Performed | Pathologist | | | | | At | Signature | + + + + + + | ESR | 79 (H)Comment: Testing | 0 - 30 mm/Hr | REFERENCE | | | | performed at [facility];[address] | | LAB | | | | [place] | | [facility] | | | | [address];[place] [address] | | LABORATORY | | + + + + + + + + | Specimen | + + | Blood | + + + + + + + | Performing | Address | City/State/Zipcode | Phone Number | | Organization | | | | + + + + + | REFERENCE LAB | [address] [facility] | [place] | [phone] | | [facility] | [address] | [address] | | | LABORATORY | | | | + + + + + | REFERENCE LAB | [address] [facility] | [place], [place] | | | [facility] | [address] | [address] | | | LABORATORY | | | | + + + + + C-Reactive Protein (01/08/2019 9:51 AM PDT) + + + + + + | Component | Value | Ref Range | Performed | Pathologist | | | | | At | Signature | + + + + + + | CRP | 3.1 (H)Comment: Testing | <0.5 mg/dL | REFERENCE | | | | performed at [facility];[address] | | LAB | | | | [facility] | | [facility] | | | | [address];[place] [address] | | LABORATORY | | + + + + + + + + | Specimen | + + | Blood | + + + + + + + | Performing | Address | City/State/Zipcode | Phone Number | | Organization | | | | + + + + + | REFERENCE LAB | [address] [place] [address] | [place] | [phone] | | [facility] | [address] | [address] | | | LABORATORY | | | | + + + + + | REFERENCE LAB | [address] [place] [address] | [place] | | | [facility] | [address] 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
--- OUTSIDE RECORDS SUMMARY | ~2020-01-02 | XMS | Encounter Summary ---
Demographics + + + | Address | [address] | | | [place] [address] | + + + | Home Phone | | + + + | Preferred Language | Unknown | + + + | Marital Status | | + + + | Yazidi Affiliation | 1041 | + + + [...] Team Providers + +------+ + | Care Nurse Infection Control Name | Role | Phone | + [...] + + + + | 11/11/ | [facility] | [facility] | Lyubov Umanzor, | Nuclear sclerotic | | 2017 | Encounter | MED CTR OR INTRA OP | MD [address] | cataract of right | | | | [address] | [place] | eye (Primary Dx) | | | | [place] | [address] | | | | | [address] | | | | | | [phone] | | | +--------+ + + + [...] + + + | Blood Pressure | 127/61 | 11/11/2016 12:15 PM | | | | | PDT | | + + + + + | Pulse | 70 | 11/11/2016 12:25 PM | | | | | PDT | | + + + + + | Temperature | 36.5 C (97.7 F) | 11/11/2016 12:02 PM | | | | | PDT | | + + + + + | Respiratory Rate | 16 | 11/11/2016 12:02 PM | | | | | PDT | | + + + + + | Oxygen Saturation | 98% | 11/11/2016 12:25 PM | | | | | PDT | | + + + + + | Inhaled Oxygen | - | - | | | Concentration | | | | + + + + + | Weight | 91.6 kg (202 lb) | 11/11/2016 9:57 AM | | | | | PDT | | + + + + + | Height | 154.9 cm (5' 1") | 11/11/2016 9:57 AM | | | | | PDT | | + + + + + | Body Mass Index | 38.17 | 11/11/2016 9:57 AM | | | | | PDT | | + + + + + documented in this encounter Medications at Time [...] | | 0 | | | | [address]11 units CAPS | | | | | [...] + + + +---------+ + + | oxyCODONE | Take by mouth. | | 0 | | | | (ROXICODONE) 5 mg | | | | | 7 | | tablet | | | | | | + + + +---------+ + + | oxyCODONE 10 MG | Take by mouth. | | 0 | | | | TABS | | | | | 7 | + + + +---------+ + + [...] as of this encounter H&P Notes Lyubov Umanzor MD - 11/11/2016 10:44 AM PDTSURGICAL INTERIM HISTORY & PHYSICAL UPDATE Pt. Name/Age/: Ana Rosa Washington 61 y.o. 1955 Date of admission: 11/11/2016 The current H&P was reviewed. The patient was reexamined. Re-evaluation of the patient co nfirms the necessity for the scheduled procedure. No change has occurred in the patient s condition since the H&P was completed less than 30 days ago. VERIFICATION OF CONSENT (PARQ) The patient was counseled regarding the procedure, its indications, risks, potential compli cations and alternatives. Any questions were answered. Consent was obtained. Electronically signed by: Lyubov Umanzor MD, 11/11/2016 10:44 [facility] Lyubov Umanzor MD at 10:44 AM [facility] MD - 11/05/2016 5:40 PM PDT [address] [address] HISTORY AND PHYSICAL LYUBOV UMANZOR MD Patient: ANA ROSA [place] Admitting: LYUBOV Arik CARLEY MR #: [id number] LOC: PT TYPE: Adm Date: : 1955 DATE: 11/05/2016. DATE OF PROCEDURE: 11/11/2016. CHIEF COMPLAINT: Poor vision. HISTORY OF PRESENT ILLNESS: Ana Rosa is a 61-year-old female who is reporting blurry vision in her right eye. She is having difficulty seeing to watch TV or movies, read, perform det loi work, write checks or fill out forms, take part in sports or hobbies, recognize peopl e when they are close to her. She notes glare halos and rings around lights, difficulty w ith color perception, difficulty with depth perception and worsening of her vision. She de sires improved visual acuity and wants cataract extraction from her right eye. PAST MEDICAL HISTORY: Diabetes, arthritis, hypertension, hypothyroidism. FAMILY HISTORY: Heart disease, arthritis, cancer, hypertension, and diabetes. SOCIAL HISTORY: Denies alcohol and recreational drug use. Current everyday smoker (half pack per day.). SURGICAL HISTORY: Rotator cuff repair, broken wrist surgery. REVIEW OF SYSTEMS: A 13-point review of systems positive for arthritis. MEDICATIONS: Vitamin D3 supplement. Celecoxib. Metformin. Losartan. Hydrocodone/acetaminophen. Ferrous sulfate. Simvastatin. Sulfasalazine. Sertraline. Omeprazole. Victoza. Levothyroxine. Insulin Aspart. Insulin Glargine Aspirin. ALLERGIES: IBUPROFEN, ALENDRONATE, HYDROXYQUINOLINE, LEVOFLOXACIN. PHYSICAL EXAMINATION: VITAL SIGNS: Blood pressure 110/65 with a pulse of 90. NEUROLOGIC: Oriented to time, place and person. Mood and affect appropriate. GENERAL: Well developed and well nourished. HEENT: Normocephalic, atraumatic. Best corrected visual acuity in the right eye is 20/50 , with glare testing drops to 20/100. Visual oropeza are full with finger counting bilatera lly. Extraocular motility is full bilaterally. Pupils are equally round and reactive to l ight with no afferent pupillary defect. Anterior segment exam shows a normal healthy appe aring cornea. The anterior chamber is of moderate depth and quiet. Iris is normal. There is 1-2+ nuclear sclerosis, 1-2+ cortical changes, vacuoles and 1-2+ central posterior subca psular cataract. Posterior segment exam shows a normal healthy appearing optic nerve. Vie w of the posterior segment is somewhat blurry, but it appears that there are a few microan eurysms and intraretinal hemorrhages in the macula and posterior retina. There is retinal artery attenuation. There appears to be rare intraretinal hemorrhages in the peripheral re isaiah. There is a posterior vitreous detachment. HEART: Regular rate and rhythm. LUNGS: Clear to auscultation bilaterally. ADMITTING IMPRESSION: 1. Visually significant cataract of the right eye. 2. Moderate nonproliferative diabetic retinopathy without macular edema. 3. Grade 2 hypertensive retinopathy. PLAN: Extracapsular cataract extraction using phacoemulsification, intraocular lens impla nt, right eye. This is to be done under monitored anesthesia care and supplemented by retr obulbar block. LYUBOV UMANZOR MD Dictated by LYUBOV UMANZOR MD 11/05/2016 17:40:54 Transcribed on 11/05/2016 18:03:49 by gisselle job# [id number] Confirmation #: [id number] cc: JEAN CARLOS TORO PAC documented in this encounter Miscellaneous Notes Op Note - Lyubov Umanzor MD - 11/11/2016 1:33 PM PDT [address] [address] OPERATIVE REPORT LYUBOV UMANZOR MD Patient: ANA ROSA WASHINGTON Admitting: LYUBOV Arik CARLEY MR #: [id number] LOC: PT TYPE: Adm Date: 11/11/2016 : 1955 DATE: 11/11/2016 DATE OF PROCEDURE: 11/11/2016 PREOPERATIVE DIAGNOSIS: Visually significant cataract of the right eye. POSTOPERATIVE DIAGNOSIS: Visually significant cataract of the right eye. NAME OF PROCEDURE: Extracapsular cataract extraction using phacoemulsification and implan tation of an intraocular lens, right eye. SURGEON: Lyubov Umanzor MD ANESTHESIA: Monitored anesthesia care supplemented by retrobulbar block. ESTIMATED BLOOD LOSS: Negligible. COMPLICATIONS: None. SUMMARY OF PROCEDURE: Risks, benefits, and alternatives were discussed with the patient, who wished to proceed with cataract surgery. Informed consent was freely obtained prior to proceeding. The patient was taken to the operating [...] The total cumula tive dispersive energy was 8.99. An irrigation and aspiration handpiece was then used to re move the lens cortex, and then gently vatican citizen the capsular bag. Provisc was then used [...] they were watertight, a subconjunctival injection of ce fazolin and Celestone was administered, the patient was undraped, anesthesia was reversed, and a patch was applied to the eye. The patient was taken to the recovery area in stable c ondition, where postop instructions and followup instructions were given. LYUBOV UMANZOR MD Dictated by LYUBOV UMANZOR MD 11/11/2016 13:33:13 Transcribed on 11/11/2016 14:11:19 by alb job# [id number] Confirmation #: [id number] cc: [facility] rief Op Note - Edw Lyubov lomas MD - 11/11/2016 12:02 PM PDT Brief Operative Note Ana Rosa Washington 61 y.o. female 1955 [id number] Proc. Date 11/11/2016 Preop Dx Age-related nuclear cataract of right eye [H25.11] Postop Dx same Procedure Right Cataract Extraction w/ Lens Implant (Right) Anesthesia Monitored anesthesia care supplemented by a retrobulbar block Surgeon Lyubov Umanzor MD - Primary [employer] Minimal Findings Findings consistent with scheduled procedure. No other abnormalities found. Complications none Specimens * No specimens in log * Drains Electronically signed by: Lyubov Umanzor MD 11/11/2016 12:02 [facility] by Lyubov Umanzor MD at 12:02 PM PDTdocumented in this encounter Plan of Treatment +--------+---------+ + + + | Date | Type | Specialty | Care Team | Description | +--------+---------+ + + + | 01/15/ | Office | Rheumatology | [place], | | | 2020 | Visit | | [address] | | | | | | [address] | | | | | | [place] [address] | | | | | | [phone] | | | | | | | | +--------+---------+ + + + documented as of this encounter Procedures + +--------+ + + + | Procedure Name | Priori | Date/Time | Associated Diagnosis | Comments | | | ty | | | | + +--------+ + + + | EXTRACTION CATARACT | | 11/11/2016 | Age-related | | | W/ OR W/O LENS | | 11:30 AM | nuclear cataract of | | | IMPLANT | | PDT | right eye | | + +--------+ + + + | POC GLUCOSE | Routin | 11/11/2016 | | Results for this | | | e | 10:31 AM | | procedure are in the | | | | PDT | | results section. | + +--------+ + + + documented in this encounter Results POC Glucose (11/11/2016 10:31 AM PDT) + +---------+ + + + | Component | Value | Ref Range | Performed | Pathologist | | | | | At | Signature | + +---------+ + + + | Glucose, | 261 (H) | 70 - 109 mg/dL | [facility] | | | [facility] | | | [facility] | | | | | | [facility] - | | | | | | LABORATORY | | + +---------+ + + + + + | Specimen | + + | Blood | + + + + + + + | Performing | Address | City/State[facility] | Phone Number | | Organization | | | | + + + + + | [facility] | [address] | [place] | [phone] | | [facility] | | [address] | | | - LABORATORY | | | | + + + + + documented in this encounter Visit Diagnoses + + | Diagnosis | + + | Nuclear sclerotic cataract of right eye - Primary Senile nuclear sclerosis | + + documented in this encounter Administered Medications + +--------+ +--------+------+ + | Medication Order | MAR | Action | Dose | Rate | Site | | | Action | Date | | | | + +--------+ +--------+------+ + | apraclonidine (IOPIDINE) 1 % | Given | 11/12/19 | 1 drop | | [facility] | | ophthalmic solution 1 drop 1 | | 17 10:37 | | | t | | drop, Right Eye, EVERY 10 MIN, | | AM PDT | | | | | First dose on [place] 11/11/16 at | | | | | | | 1030, For 2 doses, Pre-op | | | | | | + +--------+ +--------+------+ + +-------+ +--------+---+ + | Given | 11/12/19 | 1 drop | | [facility] | | | 17 10:23 | | | t | | | AM PDT | | | | +-------+ +--------+---+ + +---+---+ | | | +---+---+ + +-------+ +--------+---+ + | cyclopentolate (CYCLOGYL) 1% | Given | 11/12/19 | 1 drop | | [facility] | | ophthalmic solution 1 drop 1 | | 17 10:45 | | | t | | drop, Right Eye, EVERY 10 MIN | | AM PDT | | | | | PRN, prep eye for procedure, | | | | | | | Starting [facility] 11/11/16 at 1008, For | | | | | | | 3 doses, Only give 3rd dose 10 | | | | | | | minutes later if pupil is not | | | | | | | dilated at least 6mm, Pre-op | | | | | | + +-------+ +--------+---+ + +-------+ +--------+---+ + | Given | 11/12/19 | 1 drop | | [facility] | | | 17 10:35 | | | t | | | AM PDT | | | | +-------+ +--------+---+ + | Given | 11/12/19 | 1 drop | | [facility] | | | 17 10:21 | | | t | | | AM PDT | | | | +-------+ +--------+---+ + +---+---+ | | | +---+---+ + +-------+ +--------+---+ + | flurbiprofen (OCUFEN) 0.03% | Given | 11/12/19 | 1 drop | | [facility] | | ophthalmic solution 1 drop 1 | | 17 10:34 | | | t | | drop, Right Eye, EVERY 10 MIN, | | AM PDT | | | | | First dose on [facility] 11/11/16 at | | | | | | | 1030, For 2 doses, Use 1 drop | | | | | | | every 30 minutes beginning 2 | | | | | | | hours before surgery (total of 4 | | | | | | | drops)., Pre-op | | | | | | + +-------+ +--------+---+ + +-------+ +--------+---+ + | Given | 11/12/19 | 1 drop | | [facility] | | | 17 10:20 | | | t | | | AM PDT | | | | +-------+ +--------+---+ + + +---+ | | | + +---+ | insulin lispro (humaLOG | | | KWIKPEN) 100 units/mL injection | | | (pen) 0-12 Units 0-12 Units, | | | Subcutaneous, EVERY 2 HOURS PRN, | | | see admin instruction, Starting | | | [facility] 11/11/16 at 1008, CORRECTION | | | INSULIN BG < 70 = Follow | | | hypoglycemia management order | | | BG 71 - 150 = no insulin BG 151 | | | - 200 = 2 units BG 201 - 250 = | | | 4 units BG 251 - 300 = 6 units | | | BG 301 - 350 = 8 units BG | | | 351 - 400 = 10 units BG > 400 | | | = 12 units, Pre-op | | + +---+ | | | + +---+ + +---------+ +--------+-------+---+ | lactated ringers (LR) infusion | New Bag | 11/12/19 | 1,000 | 100 | | | at 10-100 mL/hr, Intravenous, | | 17 10:40 | mLs | mL/hr | | | CONTINUOUS, Starting [facility] 11/11/16 | | AM PDT | | | | | at 1030, TKO., Pre-op | | | | | | + +---------+ +--------+-------+---+ +---+---+ | | | +---+---+ + +-------+ +--------+---+ + | phenylephrine (AGUS-SYNEPHRINE) | Given | 11/12/19 | 1 drop | | [facility] | | 2.5% ophthalmic solution 1 drop | | 17 10:45 | | | t | | 1 drop, Right Eye, EVERY 10 MIN | | AM PDT | | | | | PRN, prep eye for procedure, | | | | | | | Starting [facility] 11/11/16 at 1008, For | | | | | | | 3 doses, Only give 3rd dose 10 | | | | | | | minutes later if pupil is not | | | | | | | dilated at least 6mm, Pre-op | | | | | | + +-------+ +--------+---+ + +-------+ +--------+---+ + | Given | 11/12/19 | 1 drop | | [facility] | | | 17 10:35 | | | t | | | AM PDT | | | | +-------+ +--------+---+ + | Given | 11/12/19 | 1 drop | | [facility] | | | 17 10:22 | | | t | | | AM PDT | | | | +-------+ +--------+---+ + +---+---+ | | | +---+---+ + +-------+ +--------+---+ + | proparacaine (ALCAINE) 0.5% | Given | 11/12/19 | 1 drop | | [facility] | | ophthalmic solution 1 drop 1 | | 17 10:34 | | | t | | drop, Right Eye, EVERY 10 MIN | | AM PDT | | | | | PRN, prep eye for procedure, | | | | | | | Starting [facility] 11/11/16 at 1008, For | | | | | | | 3 doses, Only give 3rd dose 10 | | | | | | | minutes later if pupil is not | | | | | | | dilated at least 6mm, Pre-op | | | | | | + +-------+ +--------+---+ + +-------+ +--------+---+ + | Given | 11/12/19 | 1 drop | | [facility] | | | 17 10:19 | | | t | | | AM PDT | | | | +-------+ +--------+---+ + +---+---+ | | | +---+---+ + +-------+ +--------+---+ + | tropicamide (MYDRIACYL) 1% | Given | 11/12/19 | 1 drop | | [facility] | | ophthalmic solution 1 drop 1 | | 17 10:46 | | | t | | drop, Right Eye, EVERY 10 MIN | | AM PDT | | | | | PRN, prep eye for procedure, | | | | | | | Starting [facility] 11/11/16 at 1008, For | | | | | | | 3 doses, Only give 3rd dose 10 | | | | | | | minutes later if pupil is not | | | | | | | dilated at least 6mm, Pre-op | | | | | | + +-------+ +--------+---+ + +-------+ +--------+---+ + | Given | 11/12/19 | 1 drop | | [facility] | | | 17 10:36 | | | t | | | AM PDT | | | | +-------+ +--------+---+ + | Given | 11/12/19 | 1 drop | | [facility] | | | 17 10:22 | | | t | | | AM PDT | | | | +-------+ +--------+---+ + +---+---+ | | | +---+---+ documented in this encounter
--- OUTSIDE RECORDS SUMMARY | ~2020-01-02 | XMS | Clinical Summary ---
Demographics + + + | Address | [address] | | | [place] [address] | + + + | Home Phone | | + + + | Preferred Language | Unknown | + + + | Marital Status | | + + + | Yarsanism Affiliation | CAT | + + + | Race | or | + + + | Ethnic Group | Not or | + + + Author + + + | Author | [facility] | + + + | Organization | [facility] | + + + | Address | Unknown | + + + | Phone | Unavailable | + + + Support + + +---------+ + | Name | Relationship | Address | Phone | + + +---------+ + | Giacomo [place] | [place] | Unknown | | + + +---------+ + Care Team Providers + +------+ + | Care Digital Forensics Examiner Name | Role | Phone | + +------+ + | Kendall Ruiz MD | PCP | | + +------+ + Source Comments L[facility] is fully live [facility] both [facility] and [facility] Allergies + + + + + + | Active Allergy | Reactions | Severity | Noted | Comments | | | | | Date | | + + + + + + | Levofloxacin | Headache, | | 12/24/19 | | | | Tachycardia | | 09 | | + + + + + + Medications + + + +---------+------+------+-------+ | Medication | Sig | Dispensed | Refills | Star | End | Statu | | | | | | t | Date | s | | | | | | Date | | | + + + +---------+------+------+-------+ | ASPIRIN ORAL | Take by mouth. | | 0 | | | Activ | | | | | | | | e | + + + +---------+------+------+-------+ | CELECOXIB | Take by mouth. | | 0 | | | Activ | | (CELEBREX ORAL) | | | | | | e | + + + +---------+------+------+-------+ | EXENATIDE (BYETTA | Inject under the | | 0 | | | Activ | | SUBQ) | skin (SUBC). | | | | | e | + + + +---------+------+------+-------+ | INSULIN | Inject 80 Units | | 0 | | | Activ | | GLARGINE,HUM.REC.ANL | under the skin | | | | | e | | OG (LANTUS SUBQ) | (SUBC). | | | | | | + + + +---------+------+------+-------+ | losartan (COZAAR) | Take 25 mg by mouth | | 0 | | | Activ | | 25 mg Oral Tablet | once daily. | | | | | e | + + + +---------+------+------+-------+ | omeprazole 20 mg | Take 20 mg by mouth | | 0 | | | Activ | | Oral Capsule, | once daily. | | | | | e | | Delayed | | | | | | | | Release(E.C.) | | | | | | | + + + +---------+------+------+-------+ | gemfibrozil 600 mg | Take 600 mg by mouth | | 0 | | | Activ | | Oral Tablet | two times daily. | | | | | e | + + + +---------+------+------+-------+ | oxycodone, | Take by mouth. Take | 60 | 0 | 09/2 | | Activ | | immediate release, 5 | one to three by | | | 8/20 | | e | | mg Oral Tablet | mouth as needed for | | | 09 | | | | | pain | | | | | | + + + +---------+------+------+-------+ | METFORMIN HCL | Take by mouth. | | 0 | | | Activ | | (METFORMIN ORAL) | | | | | | e | + + + +---------+------+------+-------+ | PAROXETINE HCL | Take 40 mg by mouth. | | 0 | | | Activ | | (PAXIL ORAL) | | | | | | e | + + + +---------+------+------+-------+ | INSULIN ASPART | Inject under the | | 0 | | | Activ | | SUBQ | skin (SUBC). 30-50 | | | | | e | | | sliding scale | | | | | | + + + +---------+------+------+-------+ Active Problems + + + | Problem | Noted Date | + + + | De Josh's tenosynovitis | 12/23/2008 | + + + Social History + + [...] on file | | + + + Last Filed Vital Signs + + + + + | Vital Sign | Reading | Time Taken | Comments | + + + + + | Blood Pressure | 125/61 | 12/24/2008 4:46 PM | | | | | PDT | | + + + + + | Pulse | 78 | 12/24/2008 4:46 PM | | | | | PDT | | + + + + + | Temperature | 36.6 C (97.9 F) | 12/24/2008 4:28 PM | | | | | PDT | | + + + + + | Respiratory Rate | 14 | 12/24/2008 4:46 PM | | | | | PDT | | + + + + + | Oxygen Saturation | 97% | 12/24/2008 4:46 PM | | | | | PDT | | + + + + + | Inhaled Oxygen | - | - | | | Concentration | | | | + + + + + | Weight | 98.9 kg (218 lb 0.6 | 12/24/2008 9:23 AM | | | | oz) | PDT | | + + + + + | Height | 157.5 cm (5' 2") | 12/24/2008 9:23 AM | | | | | PDT | | + + + + + | Body Mass Index | 39.88 | 12/24/2008 9:23 AM | | | | | PDT | | + + + + + Plan of Treatment + + +-------+ + | Health Maintenance | Due Date | Last | Comments | | | | Done | | + + +-------+ + | Pneumococcal | | | | | vaccination (1 of 1 | 3 | | | | - PPSV23) | | | | + + +-------+ + | Influenza (Flu) | | | | | vaccination (#1) | 0 | | | + + +-------+ + Results Not on filefrom Last 3 Months Insurance + +--------+ +--------+-------+---------+--------+ | Payer | Benefi | Subscriber | Effect | Phone | Address | Type | | | t Plan | ID | steve | | | | | | / | | Dates | | | | | | Group | | | | | | + +--------+ +--------+-------+---------+--------+ | [employer] [facility] | FIRST | [id number] | 09/25/18 | | | PPO | | | CHOICE | | 99-Pre | | | | | | | | sent | | | | | | HEALTH | | | | | | + +--------+ +--------+-------+---------+--------+ | [facility] | [place] | [id number] | 03/28/19 | | | Agency | | SERVICE | | | 09-Pre | | | | | | HEALTH | | sent | | | | | | | | | | | | | | SERVIC | | | | | | | | E | | | | | | + +--------+ +--------+-------+---------+--------+ + +--------+ +--------+ + + | Guarantor Name | Accoun | Relation to | Date | Phone | Billing Address | | | t Type | Patient | of | | | | | | | | | | + +--------+ +--------+ + + | Shiloh Washington | Person | Self | [birth year] | [address] | | | al/Fam | | 7 | [phone] | [place] [address] | | | desean | | | 3 (Home) | | | | | | | [phone] | | | | | | | 0 (Work) | | + +--------+ +--------+ + + Advance Directives + + + + + | Type | Date Recorded | Patient | Explanation | | | | Assistant Signal Maintainer | | + + + + + | Advance | | | | | Directives and | | | | | Living Will | | | | + + + + + | Power of | | | | | Food Processing Scientist | | | | + + + + +
--- OUTSIDE RECORDS SUMMARY | ~2020-01-02 | XMS | Encounter Summary ---
Demographics + + + | Address | [address] | | | [place] [address] | + + + | Home Phone | | + + + | Preferred Language | Unknown | + + + | Marital Status | | + + + | Latter-Day Affiliation | 1041 | + + + [...] Team Providers + +------+ + | Care Residential Leasing Agent Name | Role | Phone | + +------+ + | Jean Carlos Crowell PA-C | PCP | | + +------+ + Encounter Details +--------+ + + + + | Date | Type | Department | Care Team | Description | +--------+ + + + + | 05/22/ | Orders Only | [facility] | [place], | Abnormal laboratory | | 2019 | | RHEUMATOLOGY [address] | [address] | test (Primary Dx) | | | | [address] | [address] | | | | | [place], [place] | [place] [address] | | | | | [address] | [phone] | | | | | [phone] | | | +--------+ + + + [...] [address] | | | | | | [place] [address] | | | | | | [phone] | | | | | | | | +--------+---------+ + + + + +------+--------+ + + | Name | Type | Priori | Associated Diagnoses | Order Schedule | | | | ty | | | + +------+--------+ + + | Protein | Lab | Routin | Abnormal | Expected: | | Electrophoresis w/ | | e | laboratory test | 05/22/2019, Expires: | | Interp | | | | 05/22/2020 | + +------+--------+ + + documented as of this encounter Visit Diagnoses + + | Diagnosis | + + | Abnormal laboratory test - Primary Other abnormal clinical finding | + + documented in this encounter"
--- OUTSIDE RECORDS SUMMARY | ~2020-01-02 | XMS | Encounter Summary ---
Demographics + + + | Address | [address] | | | [place] [address] | + + + | Home Phone | | + + + | Preferred Language | Unknown | + + + | Marital Status | | + + + | Presybeterian Affiliation | 1041 | + + + | Race | Unknown | + + + | Ethnic Group | Not or | + + + Author + + + | Author | [facility] | | | and [place] | + + + | Organization | [facility] | | [...] Team Providers + +------+ + | Care Assembly Line Upholsterer Name | Role | Phone | + +------+ + | Jean Carlos Crowell PA-C | PCP | | + +------+ + Encounter Details +--------+ + + + + | Date | Type | Department | Care Team | Description | +--------+ + + + + | 10/15/ | Orders Only | [facility] | Janeen Gil | Rheumatoid arthritis | | 2019 | | [address] | L, Stabilizer Operator | of multiple sites | | | | [place], [place] | | with negative | | | | [address] | | rheumatoid factor | | | | [phone] | | ([facility]); High risk | | | | | | medication use | +--------+ + [...] | 2019 | Visit | | MALINDA lBue 2002 | | | | | | [address] | | | | | | [place] [address] | | | | | | [phone] | | | | | | | | +--------+---------+ + + + documented as of this encounter Procedures + +--------+ + + + | Procedure Name | Priori | Date/Time | Associated Diagnosis | Comments | | | ty | | | | + +--------+ + + + | SEDIMENTATION RATE | Routin | 10/16/2019 | Rheumatoid | Results for this | [...] + | CBC WITH | Routin | 10/16/2019 | Rheumatoid | Results for this | | DIFFERENTIAL | e | 9:51 AM | arthritis of | procedure are in the | | | | PDT | multiple sites with | results section. | | | | | negative rheumatoid | | | | | | factor (HCC) High | | | | | | risk medication use | | + +--------+ + + + | C-REACTIVE PROTEIN | Routin | 10/16/2019 | Rheumatoid | Results for this | [...] + + | COMPREHENSIVE | Routin | 10/16/2019 | Rheumatoid | Results for this | | METABOLIC PANEL | e | 9:51 AM | arthritis of | procedure are in the | | | | PDT | multiple sites with | results section. | | | | | negative rheumatoid | | | | | | factor (HCC) High | | | | | | risk medication use | | + +--------+ + + + documented in this encounter Results Comprehensive Metabolic Panel (10/16/2019 9:51 AM PDT) [...] | | | | | performed at [facility];[address] | | | | | | [facility] | | | | | | [facility];[place] [address] | | | | | | | | | | + + + + + + + + | Specimen | + + | Blood | + + + + + + + | Performing | Address | City/State/Rustcopr | Phone Number | | Organization | | | | + + + + + | REFERENCE LAB | [address] [place] [address] | [place], [place] | [phone] | | [facility] [address] | [address] | | | LABORATORY | | | | + + + + + | REFERENCE LAB | [address] [place] [address] | [place], [place] | | | [facility] | [address] | [address] | | | LABORATORY | | | [...] REFERENCE | | | | performed at [facility];[address] | | LAB | | | | [place] | | [facility] | | | | [address];[place] [address] | | LABORATORY | | + + + + + + + + | Specimen | + + | Blood | + + + + + + + | Performing | Address | City/State/Zipcode | Phone Number | | Organization | | | | + + + + + | REFERENCE LAB | [address] [facility] | [place] | [phone] | | [facility] [address] | [address] | | | LABORATORY | | | | + + + + + | REFERENCE LAB | [address] [facility] | [place] | | | [facility] | [address] | [address] | | | LABORATORY | | | [...] REFERENCE | | | | performed at [facility];[address] | | LAB | | | | [place] | | [facility] | | | | [address];[place] [address] | | LABORATORY | | + + + + + + + + | Specimen | + + | Blood | + + + + + + + | Performing | Address | City/State/Zipcode | Phone Number | | Organization | | | | + + + + + | REFERENCE LAB | [address] [facility] | [place] | [phone] | | [facility] [address] | [address] | | | LABORATORY | | | | + + + + + | REFERENCE LAB | [address] [facility] | [place] | | | [facility] [address] | [address] | | | LABORATORY | | | | + + + + + CBC with Differential (10/16/2019 9:51 AM PDT) [...] | | | Absolute | performed at [facility];[address] | [address] | LAB | | | | [facility] | | [facility] | | | | [address];[place] [address] | | LABORATORY | | + + + + + + + + | Specimen | + + | Blood | + + + + + + + | Performing | Address | City/State/Zipcode | Phone Number | | Organization | | | | + + + + + | REFERENCE LAB | [address] | [place] | [phone] | | [facility] [address] | [address] | | | LABORATORY | | | | + + + + + | REFERENCE LAB | [address] | [place] | | | [facility] [address] | [address] | | | LABORATORY | | | | + + + + + documented in this encounter Visit Diagnoses + + | Diagnosis | + + | Rheumatoid arthritis of multiple sites with negative rheumatoid factor (HCC) | + + | High risk medication use Encounter for long-term (current) use of other medications | + + documented in this encounter"
--- OUTSIDE RECORDS SUMMARY | ~2020-01-02 | XMS | Encounter Summary ---
Demographics + + + | Address | [address] | | | [place] [address] | + + + | Home Phone | | + + + | Preferred Language | Unknown | + + + | Marital Status | | + + + | Pentecostalism Affiliation | CAT | + + + | Race | or | + + + | Ethnic Group | Not or | + + + Author + + + | Author | [facility] | + + + | Organization | [facility] | + + + | Address | Unknown | + + + | Phone | Unavailable | + + + Support + + +---------+ + | Name | Relationship | Address | Phone | + + +---------+ + | Giacomo Washington | ECON | Unknown | | + + +---------+ + Care Team Providers + +------+ + | Care Donor Recruitment Manager Name | Role | Phone | + +------+ + | Kendall Ruiz MD | PCP | | + +------+ + Reason for Visit + +--------+ + | Reason | Onset | Comments | | | Date | | + +--------+ + | Pre-op evaluation | 12/23/ | | | | 2008 | | + +--------+ + Encounter Details +--------+---------+ + + + | Date | Type | Department | Care Team | Description | +--------+---------+ + + + | 12/23/ | Office | Orthopaedics | Cecilia Wells PA | Other Specified | | 2008 | Visit | Faculty at Center | [address] | Pre-Operative | | | | for Health and | [place], [place] | Examination (Primary | | | | Healing [address] | [phone] | Dx); Tenosynovitis | | | | Ave [facility] | [phone] | of Hand and Wrist | | | | Health and Healing, | | | | | | [facility] | | | | | | Floor [place], [place] | | | | | | [address] | | | | | | [phone] | | | +--------+---------+ + + + [...] of this encounter Patient Instructions Patient Instructions Jemma Elizabeth - 12/17/2008 3:32 PM PDTRegistration Locations (please ch roxana in at one of the following registration desks prior to surgery) For surgeries [place] the [facility]: Surgeries scheduled in the [facility]): registration is located on the 4th floor of [facility] (Day Surgery). Surgeries scheduled in the [facility]: registration is located on the 9th floor. Surgeries scheduled in [facility]: registration is located on the 6th floor. Surgeries scheduled in the [facility]: registration is located i n the [facility] on the first floor. For surgeries scheduled to take place at the [facility]: registration is l ocated on the 4th floor (Surgery Center). Important Information Due to the increased prevalence of pests in our community, we are asking patients to partne r with us to keep our hospital clean. If you have noticed bugs or other pests in your home, on your belongings or on your body, please contact your doctor's office prior to your admis zafar. For your safety and protection, please limit what you bring to the hospital. All valuables should be left at home. This includes pillows, blankets, clothing, purses, wallets, money an d jewelry. Patients may not bring personal electronics into the hospital, including hairdry ers, electric eduardo, radios and CD players. If you use specialized medical equipment at [facility], please check with your provider before bringing it with you into the hospital. Registration Process for all Admissions/Surgeries Please bring your insurance card(s) with you and be prepared to pay any co-payment, co-insu angle or deposit that may be required. Once you arrive at the registration desk, you will be interviewed by a Patient Access Servi ce Specialist (HARRIS). Demographics will be verified (example: name, date of , Social Se curity Number, address, insurance). You will be asked to sign some paperwork: Terms and Conditions of Service, Notice of Privac y Practices Acknowledgement and Genetic Testing Opt Out. You will be given some paperwork: copies of any forms signed by you, Patient Rights, Respon sibilities and Safety, Understanding Advance Directives, and Smoking Cessation Brochure.Jannet stration Locations (please check in at one of the following registration desks prior to surg gareth) For [place] the [facility]: Surgeries scheduled in the [facility] ( [facility]): registration is located on the 4th floor of [facility] (Day Surgery). Surgeries scheduled in the [facility]: registration is located on the 9th floor. Surgeries scheduled in [facility]: registration is located on the 6th floor. Surgeries scheduled in the [facility]: registration is located i n the [facility] main lobby on the first floor. For surgeries scheduled to take place at the [place] [facility]: registration is l ocated on the 4th floor (Surgery Center). Important Information Due to the increased prevalence of pests in our community, we are asking patients to partne r with us to keep our hospital clean. If you have noticed bugs or other pests in your home, on your belongings or on your body, please contact your doctor's office prior to your admis zafar. For your safety and protection, please limit what you bring to the hospital. All valuables should be left at home. This includes pillows, blankets, clothing, purses, wallets, money an d jewelry. Patients may not bring personal electronics into the hospital, including hairdry ers, electric eduardo, radios and CD players. If you use specialized medical equipment at h [facility], please check with your provider before bringing it with you into the hospital. Registration Process for all Admissions/Surgeries Please bring your insurance card(s) with you and be prepared to pay any co-payment, co-insu angle or deposit that may be required. Once you arrive at the registration desk, you will be interviewed by a Patient Access Servi ce Specialist (HARRIS). Demographics will be verified (example: name, date of , Social Se curity Number, address, insurance). You will be asked to sign some paperwork: Terms and Conditions of Service, Notice of Privac y Practices Acknowledgement and Genetic Testing Opt Out. You will be given some paperwork: copies of any forms signed by you, Patient Rights, Respon sibilities and Safety, Understanding Advance Directives, and Smoking Cessation Brochure.Elec tronically signed by Daisy Loyola Ma at 12/23/2008 12:35 PM PDT documented in this encounter Progress Notes Cecilia Wells PA - 12/24/2008 9:15 PM PDTPre op done and in error put under sign in of Geneva Loyola MA. Pre op was done by Cecilia Wells.Electronically signed by JESUS Gonzalez at 9:15 PM PDTDaisy Loyola Ma - 12/23/2008 12:35 PM PDTFormatting of this note mi ght be different from the original. Pre-Procedure History and Physical Date of Admission: 12/24/08 HISTORY: right dequervain's tenosynovitis, indicated for surgeyr tomorrow with dr. daniels CURRENT PROBLEM LIST: There are no active problems to display for this patient. Past Medical History Diagnosis Date DM w/o Complication Type II No past surgical history on file. MEDICATIONS: Current outpatient prescriptions Medication Sig Dispense Refill ASPIRIN ORAL Take by mouth. CELECOXIB (CELEBREX ORAL) Take by mouth. EXENATIDE (BYETTA SUBQ) Inject under the skin (SUBC). gemfibrozil 600 mg Oral Tablet Take 600 mg by mouth two times daily. hydrocodone-acetaminophen 7.5-750 mg Oral Tablet Take 1 Tab by mouth as needed. Not to exceed 5 tablets per any 24 hour period. (Not to exceed 4000 mg of acetaminophen from all pr oducts per 24 hour period.) INSULIN GLARGINE,HUM.REC.ANLOG (LANTUS SUBQ) Inject under the skin (SUBC). INSULN ASP PRT/INSULIN ASPART (NOVOLOG MIX 70-30 SUBQ) Inject under the skin (SUBC). losartan (COZAAR) 25 mg Oral Tablet Take 25 mg by mouth once daily. NUTRITIONAL SUPPLEMENT (METAFORM OR) Take by mouth. omeprazole 20 mg Oral Capsule, Delayed Release(E.C.) Take 20 mg by mouth once daily. No Known Allergies FAMILY HISTORY: No family history on file. REVIEW OF SYSTEMS: history of diabetes,blood glucose around 130 140 average PLANNED COURSE OF ACTION: surgery with dr. daniels tomorrow [facility] PARQ: A PARQ session was held, additional questions with discussion were completed. Pain me ds given, npo instructions and check in information given today documented in this encounter Miscellaneous Notes Scan - Other, Faculty - 01/10/2009 1:29 PM PDT documented in t his encounter Plan of Treatment + +------+--------+ + [...] pre-operative examination - Primary | + + | Tenosynovitis of hand and wrist Other tenosynovitis of hand and wrist | + + documented in this encounter"
--- OUTSIDE RECORDS SUMMARY | ~2020-01-02 | XMS | Encounter Summary ---
Demographics + + + | Address | [address] | | | [place] [address] | + + + | Home Phone | | + + + | Preferred Language | Unknown | + + + | Marital Status | | + + + | Temple Affiliation | CAT | + + + [...] Team Providers + +------+ + | Care Plan Checker Name | Role | Phone | + +------+ + PCP | Unavailable | + +------+ + Encounter Details +--------+ + + + + | Date | Type | Department | Care Team | Description | +--------+ + + + + | 07/01/ | Discharge | | Summary, Discharge | D/C Summary ODDS | | 2004 | Summary-Tra | | | | | | nscribed | | | | +--------+ + + [...] + + documented as of this encounter Discharge Summaries Interface, Bpm Analyst In - 10/25/2004 10:35 AM PDT [id number] ADRIANA OSEGUERA Admission Date: 06/28/2004 Discharge Date: 07/01/2004 Staff Physician: Rafy Jackson M.D. History of Present Illness: This patient is a 48-year-old female status post a total abdominal hysterectomy and bilateral salpingo-oophorectomy on June 23, 2004, in an outside hospital who had a subsequent intraabdominal bleed followed by an exploratory laparotomy. During exploratory laparotomy, they found small bleeders in the omentum which were treated with a partial omentectomy, and they found approximately 1 liter of blood in her abdomen. The patient received a total of 6 units of packed red blood cells over the time period from June 23, 2004, to June 24, 2004, with a hematocrit low at 28.6. On June 24, 2004, it was noted that her oxygen saturations were down in the mid 80s, and she had development of bilateral ground-glass opacities on chest x-rays and required subsequent intubation on June 28, 2004, at which time she was transferred to [facility]. She also had an echocardiogram on June 24, 2004, showing normal LV function and normal valves with no pericardial effusion. Summary of Hospital Course: The patient arrived at [facility] overnight June 28, 2004, and was intubated and sedated at that time. Overnight, June 28, 2004, to June 29, 2004, she developed some hypotension and was initially started on Zosyn and vancomycin to treat for possible sepsis as well as Levophed to maintain her blood pressures and IV fluids. She was rapidly weaned of the Levophed after a period of approximately 12 hours. She responded well the IV fluids, although she had periods of hypotension during her hospital stay that seemed to be attributed to over aggressive diuresis in an attempt to help wean her from the ventilator. The only other active issues during this hospitalization were development of fevers which she had on 2 occasions and from which she spontaneously defervesced. It was unclear what the source of her fevers were, and a CAT scan is being done on the day of transfer, July 01, 2004, to look for development of an abscess in the area of her prior hematoma. She has also had an infectious workup including urine cultures, blood cultures, and chest x-rays, all of which so far show no evidence of ongoing infection. Her pulmonary status improved rapidly, and she was rapidly weaned off the ventilator and extubated on July 01, 2004, prior to transfer to the floor. Past Medical History 1. Diabetes mellitus, on Lantus Insulin at home. 2. Depression. 3. Status post SULEMAN and BSO. Please see HPI. 4. Headaches. 5. Status post cholecystectomy. 6. Peptic ulcer disease. 7. History of urinary incontinence. Physical Examination at the time of Transfer Vital Signs: Heart rate 70 to 80, blood pressure 90 to 120/35 to 55, temperature 38.8 maximum, respiratory rate 10 to 30 over the last 24 hours. General: She was awake, alert, and communicative. HEENT: Pupils are equal, round, and reactive to light. Sclerae were anicteric. Respiratory: Anteriorly, she had decreased breath sounds throughout with scattered rhonchi. Cardiovascular: Regular rate and rhythm without murmurs, rubs, or gallops. Abdomen: Positive bowel sounds, soft, obese, nontender, and nondistended. She has a vertical incision at the lower part of her abdomen that is stapled and healing well without evidence of purulent drainage. There is no surrounding erythema. : She has a suprapubic catheter in place. There is no erythema or purulent drainage around the site. Extremities: She has 1 to 2+ pitting lower extremity edema. She has positive DP pulses bilaterally. Skin: Without rashes. Current Laboratory Data from the Last 24 Hours: Sodium 138, potassium 4.0, chloride 107, bicarbonate 26, BUN 9.0, creatinine 0.7, glucose 88, calcium 8.1, white count 4.9, hematocrit 30.7 which is stable from the time of discharge, and platelets of 391. Her INR is 1.22. Blood cultures from June 28, 2004, are no growth to date x 2. Sputum culture from June 29, 2004, showed oral gume. Blood, sputum, and urine cultures from June 30, 2004, are pending at this time. Radiographic Data: A chest x-ray showed improving bilateral ground-glass opacities with no evidence of a secondary process such as pneumonia. CT of the abdomen and pelvis was completed at that time and results are pending. Medications at the time of Transfer 1. Insulin drip. 2. Paroxetine 20 mg p.o. daily. 3. Zosyn 4.5 g IV q.6 h. 4. Ranitidine 150 mg p.o. b.i.d. 5. P-znypfq-C-cysteine 600 mg p.o. b.i.d. for a total of 4 doses. 6. Docusate 100 mg p.o. b.i.d. 7. Heparin 5000 units subcutaneous q.12 h. 8. Tylenol 650 mg p.o. q.6 h. p.r.n. pain or fever. 9. Senna 1 tablet p.o. b.i.d. p.r.n. constipation. Impression: This is a 48-year-old female status post total abdominal hysterectomy and bilateral salpingo-oophorectomy on June 23, 2004, with subsequent intraabdominal bleed treated with exploratory laparotomy, partial omentectomy, and transfusion of 6 units of PRBCs who shortly thereafter developed ARDS of unclear origin, although possibly related to her transfusion. Plan 1. Neurologically, the patient had no active issues. She is alert, oriented, and communicative at this time. 2. Cardiovascular. The patient was being diuresed with IV Lasix and had a excellent response the day prior to transfer with diuresis of 4 liters of approximately 12 hours. However, she then became slightly hypotensive and responded to fluids. I suspect that her transient episodes of hypotension are more likely related to hypovolemia and over diuresis then they are developing sepsis. At this time, her blood pressure is stable, and we plan on holding transfer if she again developed hypotension during this hospitalization. 3. Pulmonary. The patient had resolving ARDS. Currently, she is saturating at 98% on 3 liters of oxygen via nasal cannula. It is unclear what triggered her ARDS, and if there was or was not a component of cardiogenic edema to it. She did respond with improvement of her effusions fairly rapidly with administration of IV Lasix, but this could also be the natural history of disease, especially if it was a transfusion reaction. 4. Gastrointestinal. The patient is currently stable with regards to her gastrointestinal status. I just received preliminary report that she does have a fascial defect with part of a small-bowel herniation into it, and she will likely need to have this addressed with the gynecological surgeon who may need to take her back to the OR for fascia repair. She also has had some constipation and has not moved her bowels in several days likely related to her current illness. We will start her on a bowel regimen today which may need to be changed as needed upon arrival to the floor. 5. Genitourinary. The patient failed the trail of clamping her suprapubic catheter today. This will need to be reevaluated again. The Gynecology Service likely will be following the patient during her hospitalization, and they can be referred to for questions regarding this. However, they have told us that once she passes the voiding trail, she will need to have this catheter discontinued by the financial analyst intern. 6. Hematology/Oncology. The patient is status post transfusion with 6 units of PRBCs. Currently, her hematocrit has been stable since she was admitted. She also had a chronically mildly elevated white count which is resolving since the time of her admission. 7. Endocrine. The patient has diabetes mellitus for which she is on Lantus Insulin as an outpatient. Currently, she is on an insulin drip which we are transferring her on. She will need to be converted to subcutaneous insulin. 8. Infectious disease. I just received a report that her CAT scan was negative for an intraabdominal abscess. She may be having fevers simply because she is atelectatic and has not been mobilized. We are hoping these will resolve with mobilization. However, for now, we are continuing her on Zosyn pending final negativity of her cultures or resolution of her fevers. We leave discontinuation of this antibiotic up to the discussion of the primary accepting team. 9. Nutrition. The patient has been on tube feeds during her hospital stay. However, at this time, we will discontinue them as she is tolerating ice chips and start her on a clear liquid diet. Likely, this will need to be advanced as tolerated but leave this to the discretion of the primary team. 10. Prophylaxis. The patient is on heparin subcutaneous 5000 units b.i.d. and ranitidine 150 mg p.o. b.i.d. Code Status: The patient is full code. Tiff Vo M.D. Rafy Jackson M.D. HO / DOLLY [id number] / [id number] / [id number] / Electronically signed by Rafy Jackson 10-06-2004 09:43:28 AM documented i n this encounter Plan of Treatment Not on filedocumented as of this encounter Visit Diagnoses Not on filedocumented in this encounter"
--- OUTSIDE RECORDS SUMMARY | ~2020-01-02 | XMS | Encounter Summary ---
Demographics + + + | Address | [address] | | | [place] [address] | + + + | Home Phone | | + + + | Preferred Language | Unknown | + + + | Marital Status | | + + + | Samaritan Affiliation | CAT | + + + | Race | or | + + + | Ethnic Group | Not or | + + + Author + + + | Author | [facility] | + + + | Organization | [facility] | + + + | Address | Unknown | + + + | Phone | Unavailable | + + + Support + + +---------+ + | Name | Relationship | Address | Phone | + + +---------+ + | Giacomo Washington | ECON | Unknown | | + + +---------+ + Care Team Providers + +------+ + | Care Certified Prosthetist Name | Role | Phone | + +------+ + | Kendall Ruiz MD | PCP | | + +------+ + Encounter Details +--------+---------+ + + + | Date | Type | Department | Care Team | Description | +--------+---------+ + + + | 01/02/ | Office | [facility] | [facility] [place] | | 2008 | Visit | Occupational Therapy | [address] | Tenosynovitis | | | | Services at [facility] | [facility] | (Primary Dx) | | | | [facility] [address] [place], [place] | | | | | [facility] | [address] | | | | | Health and Healing, | | | | | | Building [address], 1st | | | | | | Floor [place], [place] | | | | | | [address] | | | | | | [phone] | | | +--------+---------+ + + + [...] documented as of this encounter Progress Notes Lourdes Laird - 01/02/2009 2:06 PM PDTFormatting of this note might be different from tess torres. [id number] ANA ROSA WASHINGTON Date of : 1955 Start of care: 12/23/2008 Date of onset: 01/02/08 Referring/Attending Practitioner: Avinash Okeefe . Primary/Referral Diagnosis/ICD-9: Encounter Diagnoses Code Name Primary? Qualifier 727.04L De Quervain's Tenosynovitis Yes Insurance: Payor: [employer] Plan: [employer] Product Type: PPO Service period from: 12/23/2008 to: 03/24/09 Number visits used/authorized: 05/05 [facility] HAND/OCCUPATIONAL THERAPY PROGRESS NOTE Name: Ana Rosa Washington Subjective: Precaution/special problems: TFCC tear, per md note Pain level (0-10): Patient reports a pain level of today at rest: 2/10 Patient's Goals: reduce pain OBJECTIVE: CLINICAL DATA: Hand Dominance: right Involved Side: right EDEMA: pt. Reports radial side of wrist and thumb swell. RANGE OF MOTION: Wrist flexion 40 Wrist extension 71 Cmc extension 52 Palmar abduction 50 Thumb mp +30/32 Thumb ipj: 4/80 Thumb opposition to small finger tip SENSATION: intact TREATMENT TODAY:re-Evaluation, splint, home program instruction . ASSESSMENT: Ana Rosa requires services that can be safely and effectively performed only by a qualified erapist to address the following problems and achieve the following goals: Treatment diagnosis: Encounter Diagnoses Code Name Primary? Qualifier 727.04L De Quermarco's Tenosynovitis Yes SHORT-TERM GOALS: discussed with Ana Rosa smith in 1 weeks: pt. Will have improved knowledge of procedure, and precations.-met Pt. Will be instructed with postoperative plan of care -met Pt. Will have appropriate thumb spica splint for protection Pt. Will have home program to include tendon gliding and precautiosn LONG-TERM GOALS: discussed with sarah Matamoros in 8 weeks: Pt. Will have full use of hand with 0/10 pain on visual analog scale. PLAN OF CARE: Follow up after next md visit for reassessment and strengthening Frequency/Duration: 1x today, and after next md ayo. Pt. Lives far away and is unable to come to [facility] for therapy Treatment began: 130 Treatment ended: 215 documented in this encoun ter Plan of Treatment + + +--------+ + + | Name | Type | Priori | Associated Diagnoses | Order Schedule | | | | ty | | | + + +--------+ + + | RI OCCUPATIONAL | Procedures | Routin | De Quervain's | Ordered: 01/02/2009 | | THERAPY | | e | Tenosynovitis | | | RE-EVALUATION | | | | | + + +--------+ + + documented as of this encounter Visit Diagnoses + + | Diagnosis | + + | De Quervain's tenosynovitis - Primary Radial styloid tenosynovitis | + + documented in this encounter"
--- OUTSIDE RECORDS SUMMARY | ~2020-01-02 | XMS | Encounter Summary ---
Demographics + + + | Address | [address] | | | [place] [address] | + + + | Home Phone | | + + + | Preferred Language | Unknown | + + + | Marital Status | | + + + | Sikhism Affiliation | 1041 | + + + | Race | Unknown | + + + | Ethnic Group | Not or | + + + Author + + + | Author | [facility] | | | and [place] | + + + | Organization | [facility] | | | [...] Team Providers + +------+ + | Care Traffic Control Officer Name | Role | Phone | + +------+ + | Jean Carlos Crowell PA-C | PCP | | + +------+ + Reason for Visit + + + | Reason | Comments | + + + | Follow-up | | + + + Follow Up (Routine) +--------+--------+ + + + + | Status | Reason | Specialty | Diagnoses / | Referred By | Referred To | | | | | Procedures | Contact | Contact | +--------+--------+ + + + + | Closed | | Rheumatology | Diagnoses | Jcarlos, | | | | | | | Crys Riggins, | [place], | | | | | RA/XCRP/Scle | PA-C [id number] | Esme Ortiz, | | | | | ike | GUIDO CHAVES | DATA ENTRY EMAIL PROCESSOR [address] | | | | | | [place], | [place] | | | | | | [place] [address] | [place], [place] | | | | | | Phone: | [phone] | | | | | | [phone] | Phone: | | | | | | Fax: | [phone] | | | | | | [phone] | Fax: | | | | | | | [phone] | +--------+--------+ + + + + Encounter Details +--------+---------+ + + + | Date | Type | Department | Care Team | Description | +--------+---------+ + + + | 05/21/ | Office | [facility] | Trevon, | Rheumatoid arthritis | | 2020 | Visit | RHEUMATOLOGY [address] | [place] [address] | of multiple sites | | | | [address] | [address] | with negative | | | | [place], [place] | [place] [address] | rheumatoid factor | | | | [address] | [phone] | (HCC); High risk | | | | [phone] | | medication use; | | | | | | Scl-70 antibody | | | | | | positive | +--------+---------+ + + + Social History [...] + + + | Blood Pressure | 109/68 | 05/21/2019 9:23 AM | | | | | PST | | + + + + + | Pulse | 87 | 05/21/2019 9:23 AM | | | | | PST | | + + + + + | Temperature | 36.8 C (98.3 F) | 05/21/2019 9:23 AM | | | | | PST | | + + + + + | Respiratory Rate | - | - | | + + + + + | Oxygen Saturation | - | - | | + + + + + | Inhaled Oxygen | - | - | | | Concentration | | | | + + + + + | Weight | 86.6 kg (191 lb) | 05/21/2019 9:23 AM | | | | | PST | | + + + + + | Height | - | - | | + + + + + | Body Mass Index | 34.93 | 01/08/2019 9:17 AM | | | | | PDT | | + + + + + documented in this encounter Patient Instructions Patient Instructions Cristel Castaneda, Dough Scaler And Mixer - 05/21/2019 8:40 AM PSTFroy hope that you have experienced exceptional care today and that you found our service to be court eous and helpful. If you have any questions or need medication refills you can send us a message/request u ludwin Gonzalez or call our office at [phone]. To reach my MA-C type extension [phone]. If you are unable to reach a nurse during clinic hours, please leave a detailed message. We check our messages often and return calls in a timely manner during clinic hours. Orders for labs or imaging: Please remember that Esme PETTY will only call you if something of concern needs to be addressed, otherwise all result will be discussed at your next office visit. You can also look at your results on Keduot. If you are experiencing an emergency, please call 911 Increase methotrexate 6 tabs once a week and continue sulfasalazine 1 tab in the AM and 2 t abs PM documented in this encounter Progress Notes Esme Lester ARNP - 05/21/2019 8:40 AM PSTFormatting of this note might be diffe rent from the original. Subjective: Patient ID: Shiloh Washington is a 63 y.o. female. Reason for visit: Rheumatoid Arthritis Here forFollow up Rheumatological History Patient was diagnosed in 2012 with an initial presentation of + Scl 70, joint stiffness Serology: Positive DAYNA titer, Positive antinuclear autoantibodies Scl 70, neg centromere an d Negative RF Pertinent Imaging:OA changes, neg. erosionsto H/F 2017, CXR 2013 - neg HPI Last visit:01/08/2019 Changes in overall health since last visit: reports that she has not had RA, diabetic medic ation or CBD since Tuesday. It is unclear if she forgot medication or could not afford medica tion Main Concern:RA- 2-3 episodes since last visit where she had difficulty getting out of bed. She states that she had to use her walker. Has not had sulfasalazine or methotrexate since Tuesday-see discussion above Denies skin tightening, fevers, illness, infection, rashes, oral ulcers, chest pain, SOB or abdominal pain Location: "Everywhere " Quality: ache Severity: chronic Duration: chronic, but increasing pain since last week Timing:Morning>Evening Aggravated by:activity Relieved by:rest, CBD Tried and failed oral DMARDs include: Plaquenil (Pt reports allergy)., Arava( diarrhea, inf ection) MTX was avoided since she reported SOB. 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 Musculoskeletal: Positive for arthralgias. Negative for joint swelling. Skin: Negative for rash. Neurological: Negative for numbness and headaches. Psychiatric/Behavioral: The patient is not nervous/anxious. Esme Valentine, reviewed the above ROS, all other systems are reviewed and nega tive Objective: BP 109/68 | Pulse 87 | Temp 36.8 C (98.3 F) (Oral) | Wt 86.6 kg (191 lb) | BMI 34.9 3 kg/m Physical Exam Constitutional: Appearance: She is [...] the hands and feet Posture is kyphotic Skin: General: Skin is warm and dry. Neurological: Mental Status: She is alert and oriented to person, place, and time. Psychiatric: Behavior: Behavior normal. ARMENDARIZ-28 (ESR): 5.1 (Moderate disease activity) Serge FOSTER am personally using the [employer]oma[employer] tool during [facility] patient exam. Labs reviewed in [facility] - bring in cbc cmp vit d TSH and uric acid from 05-02-2019- results are satisfactory 2018 hep b/c neg. 09/11 chest xray- nodule in L upper lobe- unchanged Reviewed chart notes, labs and imaging form other provider(s) since the last visit. Assessment and Plan: Visit Diagnoses and Associated Orders: Rheumatoid arthritis of multiple sites with negative rheumatoid factor (HCC) Assessment & Plan: Initially diagnosed with RA 2012, +DAYNA, +SCL-70, Neg. RF, neg centromere. 2018- x-rays H/F- neg.erosions clinical evidence of active RA, inflammatory markers are increased, ARMENDARIZ score moderate dis ease activity Risk and benefit of treatment plan were discussed with her today Recommend: Continue sulfasalazine 1.5 g every day increase methotrexate 15 mg once a week We discussed use of biologic medication, but she does not wish to drive from [facility] for infusions. Also, concerned about cost. Return to clinic in 3 to 4 months or sooner if joint symptoms do not improve with increased dose of methotrexate High risk medication use Assessment & Plan: Labs are current from Feb., update inflammatory markes today only. continue to monitor closely while on DMARD and/or biologic medication. Counseled regardin g medication compliance as well as potential toxicities with medications such as cytopenias, liver abnormalities and risks for infection, and the need for routine blood work monitoring . Scl-70 antibody positive Assessment & Plan: No clinical evidence of connective tissue disease or scleroderma today Other orders - sulfaSALAzine (AZULFIDINE) 500 mg tablet; Take 1 tablet by mouth 3 (three) times markus y. Dispense: 270 tablet; Refill: 0 - methotrexate 2.5 mg tablet; Take 6 tablets by mouth Once a week. Indications: Rheumat oid Arthritis Dispense: 72 tablet; Refill: 0 Risks and benefits of a treatment plan were explained to patient. Patient will follow up with their primary care physician in regards to non-rheumatological symptoms listed under review of systems. Patient was advised to contact our office if there are any change in their symptoms. This document has been prepared with FlyBridGe voice recognition system. The possibility of "s ound alike" power press operator errors, and additions, or deletions may occur. If there is any que stion with respect to clarity of the message being conveyed, please contact me directly for clarification. documented in this encounter Miscellaneous Notes Assessment & Plan Note - Esme Lester ARNP - 05/21/2019 9:56 AM PSTAssociated Pr oblem(s): Scl-70 antibody positiveNo clinical evidence of connective tissue disease or scler oderma today d dendum Note - Esme Lester ARNP - 05/21/2019 8:40 AM PST Addended by: ESME STEPHENS on: 05/21/2019 09:59 AM Modules accepted: Orders ssessment & Plan Note - Esme Lester ARNP - 05/21/2019 7:11 AM PSTAssociated Problem(s): Hi gh risk medication useLabs are current from Apr., update inflammatory markes today only. continue to monitor closely while on DMARD and/or biologic medication. Counseled regardin g medication compliance as well as potential toxicities with medications such as cytopenias, liver abnormalities and risks for infection, and the need for routine blood work monitoring . ssessment & Plan Note - Esme Lester ARNP - 05/21/2019 7:11 AM PSTAssociated Problem(s): Rheu matoid arthritis of multiple sites with negative rheumatoid factor (HCC)Initially diagnosed with RA 2012, +DAYNA, +SCL-70, Neg. RF, neg centromere. 2018- x-rays H/F- neg.erosions clinical evidence of active RA, inflammatory markers are increased, ARMENDARIZ score moderate dis ease activity Risk and benefit of treatment plan were discussed with her today Recommend: Continue sulfasalazine 1.5 g every day increase methotrexate 15 mg once a week We discussed use of biologic medication, but she does not wish to drive from [facility] for infusions. Also, concerned about cost. Return to clinic in 3 to 4 months or sooner if joint symptoms do not improve with increased dose of methotrexate documented in this encounter Plan of Treatment +--------+---------+ + + + | Date | Type | Specialty | Care Team | Description | +--------+---------+ + + + | 01/15/ | Office | Rheumatology | Trevon, | | 2019 | Visit | | [address] | | | | | | [address] | | | | | | [place] [address] | | | | | | [phone] | | | | | | | | +--------+---------+ + + + documented as of this encounter Results C-Reactive Protein (05/21/2019 9:58 AM PST) + + + + + + | Component | Value | Ref Range | Performed | Pathologist | | | | | At | Signature | + + + + + + | CRP | 3.2 (H)Comment: Testing | <0.5 mg/dL | REFERENCE | | | | performed at [facility];[address] | | LAB | | | | [place] | | [facility] | | | | [address];[place] [address] | | LABORATORY | | + + + + + + + + | Specimen | + + | Blood | + + + + + + + | Performing | Address | City/State/Zipcode | Phone Number | | Organization | | | | + + + + + | REFERENCE LAB | [address] [place] [address] | [place], [place] | [phone] | | [facility] | [address] | [address] | | | LABORATORY | | | | + + + + + | REFERENCE LAB | [address] [place] [address] | [place], [place] | | | [facility] | [address] | [address] | | | LABORATORY | | | [...] findings | + + documented in this encounter
--- OUTSIDE RECORDS SUMMARY | ~2020-01-02 | XMS | Encounter Summary ---
Demographics + + + | Address | [address] | | | [place] [address] | + + + | Home Phone | | + + + | Preferred Language | Unknown | + + + | Marital Status | | + + + | Restorationism Affiliation | 1041 | + + + | Race | Unknown | + + + | Ethnic Group | Not or | + + + Author + + + | Author | [facility] | | | and [place] | + + + | Organization | [facility] | | | [...] Team Providers + +------+ + | Care Reproducer Name | Role | Phone | + +------+ + | Jean Carlos Crowell PA-C | PCP | | + +------+ + Reason for Visit + +--------+ + | Reason | Onset | Comments | | | Date | | + +--------+ + | Results, Imaging | 01/10/ | | | | 2019 | | + +--------+ + Encounter Details +--------+ + + + + | Date | Type | Department | Care Team | Description | +--------+ + + + + | 01/10/ | Telephone | [facility] | Trevon, | Results, Imaging | | 2019 | | RHEUMATOLOGY [address] | [address], [place] [address] | | | | | [address] | [address] | | | | | [place], [place] | [place] [address] | | | | | [address] | [phone] | | | | | [phone] | | | +--------+ + + + [...] encounter Miscellaneous Notes Telephone Encounter - Patti Richardson, Electrical Software Engineer - 01/10/2019 10:09 AM PDTCalled patient and let her know what the provider stated about xray She stated understandingElectronically signed by Patti Richardson, Electrical Software Engineer at 10:10 AM PDTTelephone Encounter - Jess Lester ARNP - 01/10/2019 9:02 AM PDTThoracic x-ray reviewed today-there is no evidence of a fracture, but if she continues to have neck pain-recommend that she follow-up with PCP and may benefit from having an MRI-as this is more sensitive and specific for evaluation of possible fracture documented in this encounter Plan of Treatment +--------+---------+ + + + | Date | Type | Specialty | Care Team | Description | +--------+---------+ + + + | 01/15/ | Office | Rheumatology | Trevon, | | | 2019 | Visit | | [address] | | | | | | [address] | | | | | | [place] [address] | | | | | | [phone] | | | | | | | | +--------+---------+ + + + documented as of this encounter Visit Diagnoses Not on filedocumented in this encounter"
--- OUTSIDE RECORDS SUMMARY | ~2020-01-02 | XMS | Encounter Summary ---
Demographics + + + | Address | [address] | | | [place] [address] | + + + | Home Phone [...] Team Providers + +------+ + | Care Community Outreach Manager Name | Role | Phone | + +------+ + | Jean Carlos Crowell PA-C | PCP | | + +------+ + Reason for Visit + +--------+ + | Reason | Onset | Comments | | | Date | | + +--------+ + | Lab Order | 07/16/ | | | | 2020 | | + +--------+ + Encounter Details +--------+ + + + + | Date | Type | Department | Care Team | Description | +--------+ + + + + | 07/16/ | Telephone | [facility] | Trevon | Lab Order | | 2019 | | RHEUMATOLOGY [address] | [address]iz PRECISION LENS TECHNICIAN [address] | | | | | [address] | [address] | | | | | [place], [place] | [place] [address] | | | | | [address] | [phone] | | | | | [phone] | | | +--------+ + + + [...] Miscellaneous Notes Telephone Encounter - Patti Richardson Laboratory Analyst - 07/17/2019 8:26 AM PDTMailed lab orders to patient Faxed Rx to [facility] Confirmation received [phone] signed by Patti Richardson Medical Assist ant at 07/17/2019 8:28 AM PDTTelephone Encounter - Patti Richardson, Laboratory Analyst - 0 07/17/2019 8:26 AM PDT----- Message from [place] Corbett sent at 07/17/2019 8:16 AM PDT ----- Please mail labs to pt home- recommended she update these in 4-6 wks Fax new mtx order to [facility] [place] docu mented in this encounter Plan of Treatment +--------+---------+ + + + | Date | Type | Specialty | Care Team | Description | +--------+---------+ + + + | 01/15/ | Office | Rheumatology | Trevon, | | | 2019 | Visit | | [address] | | | | | | [address] | | | | | | [place] [address] | | | | | | [phone] | | | | | | | | +--------+---------+ + + + documented as of this encounter Visit Diagnoses Not on filedocumented in this encounter"
--- OUTSIDE RECORDS SUMMARY | ~2020-01-02 | XMS | Encounter Summary ---
Demographics + + + | Address | [address] | | | [place] [address] | + + + | Home Phone [...] Team Providers + +------+ + | Care [place] Clerk Name | Role | Phone | + +------+ + | Jean Carlos Crowell PA-C | PCP | | + +------+ + Reason for Visit + +--------+ + | Reason | Onset | Comments | | | Date | | + +--------+ + | Medication Refill | 11/12/ | | | | 2019 | | + +--------+ + Encounter Details +--------+--------+ + + + | Date | Type | Department | Care Team | Description | +--------+--------+ + + + | 11/12/ | Refill | [facility] | | 2019 | | RHEUMATOLOGY [address] | Jess Ortiz [facility] [address] | | | | | [address] | [address] | | | | | [place], [place] | [place] [address] | | | | | [address] | [phone] | | | | | [phone] | | | +--------+--------+ + + + Social History + +-------+ [...] this encounter Miscellaneous Notes Telephone Encounter - Kwabena Brooks, Salesforce Business Analyst - 11/13/2019 2:01 PM [facility] By:michael kathleen Last filled:10/12/2019 Last Labs:10/16/2019 Last visit:10/16/2019 Next visit: 01/16/2020 Eye exam:n/a No result notes or see result note: Last chart note stated:Rheumatoid arthritis of multiple sites with negative rheumatoid fact or (HCC) Assessment & Plan: Initially diagnosed with [...] the p.m. Patient understands that treatment is continuous churn buttermaker and if patient fails to continue regimen , the disease has propensity to flare. RTC 3 to 4 months Please advise do cumented in this encounter Plan of Treatment +--------+---------+ + + + | Date | Type | Specialty | Care Team | Description | +--------+---------+ + + + | 01/15/ | Office | Rheumatology | Trevon, | | | 2019 | Visit | | [address] | | | | | | [address] | | | | | | [place] [address] | | | | | | [phone] | | | | | | | | +--------+---------+ + + + documented as of this encounter Visit Diagnoses + + | Diagnosis | + + | Rheumatoid arthritis of multiple sites with negative rheumatoid factor (HCC) - Primary | + + documented in this encounter"
--- OUTSIDE RECORDS SUMMARY | ~2020-01-02 | XMS | Encounter Summary ---
Demographics + + + | Address | [address] | | | [place] [address] | + + + | Home Phone | | + + + | Preferred Language | Unknown | + + + | Marital Status | | + + + | Pentecostal Affiliation | 1041 | + + + | Race | Unknown | + + + | Ethnic Group | Not or | + + + Author + + + | Author | [facility] | | | and [place] | + + + | Organization | [facility] | | [...] Team Providers + +------+ + | Care Flexible Babysitter Name | Role | Phone | + +------+ + PCP | Unavailable | + +------+ + Encounter Details +--------+ + + + + | Date | Type | Department | Care Team | Description | +--------+ + + + + | 08/17/ | [facility] | [facility] | Samuel Kauffman, | | | 2002 | Encounter | MED CTR [facility] INTRA OP | DPM [address] | | | | | [address] | [place], [place] | | | | | [place], [place] | [address] | | | | | [address] | | | | | | [phone] | | | +--------+ + + + [...] 2020 | Visit | | [address] | | | | | | [address] | | | | | | [place] [address] | | | | | | [phone] | | | | | | | | +--------+---------+ + + + documented as of this encounter Visit Diagnoses Not on filedocumented in this encounter"
--- OUTSIDE RECORDS SUMMARY | ~2020-01-02 | XMS | Encounter Summary ---
Demographics + + + | Address | [address] | | | [place] [address] | + + + | Home Phone | | + + + | Preferred Language | Unknown | + + + | Marital Status | | + + + | Mormon Affiliation | CAT | + + + [...] Team Providers + +------+ + | Care Video Control Operator Name | Role | Phone | + +------+ + | Kendall Ruiz MD | PCP | | + +------+ + Reason for Visit PROC - Outpatient Surgery (Routine) +--------+--------+ + + + + | Status | Reason | Specialty | Diagnoses / | Referred By | Referred To | | | | | Procedures | Contact | Contact | +--------+--------+ + + + + | Closed | | Orthopedics | Diagnoses | Joseph | Sary, | | | | | De | Kendall Elise, | MD Avinash | | | | | Jed | MD Pantoja | [address] [facility] | | | | | tenosynoviti | [facility] | [facility] | | | | | s | & Fract[address] | [address] [place], | | | | | Procedures | [address] | [place] | | | | | REQUEST TO | Leidy Wilhelm | [address] | | | | | SURGERY | JOSEPH, | Phone: | | | | | ANNUAL GREENHOUSE MANAGER | [place] [address] | [phone] | | | | | [place] [facility] | Phone: | Fax: | | | | | TENDON | [phone] | [phone] | | | | | SHEATH,RADIA | Fax: | | | | | | L STYLOID | [phone] | | +--------+--------+ + + + + Encounter Details +--------+---------+ + + + | Date | Type | Department | Care Team | Description | +--------+---------+ + + + | 02/06/ | Office | Orthopaedics | Avinash Okeefe MD | ERRONEOUS ENCOUNTER | | 2008 | Visit | [facility] at [place] | [address] | - NO DIAGNOSIS | | | | for Health and | [address] | (Primary Dx) | | | | Healing [address] | [place], [place] | | | | | Ave [facility] | [address] | | | | | Health and Healing, | [phone] | | | | | [facility] | | | | | | Floor [place], [place] | | | | | | [address] | | | | | | [phone] | | | +--------+---------+ + + + [...] documented as of this encounter Progress Notes Avinash Okeefe MD - 03/03/2009 8:13 AM PSTpatient not seen documented in this encounter Miscellaneous Notes Vickie Posada - 03/11/2009 2:50 PM PST documented in t his encounter Plan of Treatment Not on filedocumented as of this encounter Visit Diagnoses + + | Diagnosis | + + | ERRONEOUS ENCOUNTER - NO DIAGNOSIS - Primary | + + documented in this encounter"
--- OUTSIDE RECORDS SUMMARY | ~2020-01-02 | XMS | Encounter Summary ---
Demographics + + + | Address | [address] | | | [place] [address] | + + + | Home Phone | | + + + | Preferred Language | Unknown | + + + | Marital Status | | + + + | Zoroastrian Affiliation | [phone] | + + + [...] Team Providers + +------+ + | Care Continuity Manager Name | Role | Phone | + +------+ + | Jean Carlos Crowell PA-C | PCP | | + +------+ + Reason for Visit + + + | Reason | Comments | + + + | Numbness | Right hand numbness | + + + Service/Procedure (Routine) +--------+--------+ + + + + | Status | Reason | Specialty | Diagnoses / | Referred By | Referred To | | | | | Procedures | Contact | Contact | +--------+--------+ + + + + | Closed | | Physical | Diagnoses | Ruiz, | Tammy, | | | | Medicine and | Paresthesia | Kendall Elise, | MD Oswaldo | | | | Rehabilitatio | Right | [address] | | | | n | upper | [address] | [address] | | | | | extremity | [place], | [place] | | | | | numbness | [place] | [address] Phone: | | | | | Procedures | [address] | [phone] | | | | | LA MOTOR | Phone: | Fax: | | | | | &/SENS 3-4 | [phone] | [phone] | | | | | NRV CNDJ | Fax: | | | | | | PRECONF | [phone] | | | | | | ELTRODE LIMB | | | | | | | LA MOTOR | | | | | | | &/SENS 5-6 | | | | | | | NRV CNDJ | | | | | | | PRECONF | | | | | | | ELTRODE LIMB | | | | | | | LA EMG, | | | | | | | NEEDLE, TWO | | | | | | | LIMBS LA | | | | | | | NEEDLE EMG | | | | | | | EA EXTREMITY | | | | | | | W/PARASPINL | | | | | | | AREA | | | | | | | LIMITED | | | +--------+--------+ + + + + Encounter Details +--------+ + + + + | Date | Type | Department | Care Team | Description | +--------+ + + + + | 10/26/ | Procedure | [facility] | Oswaldo Munoz, | Numbness and | | 2016 | visit | PHYSIATRY [address] | tingling in right | | | | [address] | [address] [place], | hand; Right carpal | | | | [place] | [place] [address] | tunnel syndrome; | | | | [address] | [phone] | Entrapment of right | | | | [phone] | | ulnar nerve at elbow | +--------+ + + + + Social [...] + + + | Blood Pressure | 121/67 | 10/26/2016 2:13 PM | | | | | PDT | | + + + + + | Pulse | 94 | 10/26/2016 2:13 PM | | | | | PDT [...] Weight | 95.3 kg (210 lb) | 10/26/2016 2:13 PM | | | | | PDT | | + + + + + | Height | 157.5 cm (5' 2") | 10/26/2016 2:13 PM | | | | | PDT | | + + + + + | Body Mass Index | 38.41 | 10/26/2016 2:13 PM | | | | | PDT | | + + + + + documented in this encounter Procedure Notes Oswaldo Munoz MD - 10/26/2016 2:00 PM PDTAssociated Order(s): EMG STUDYProcedure(s) : EMG STUDYPre-Procedure Diagnose(s): Numbness and tingling in right handPost-Procedure Diag nose(s): Right carpal tunnel syndrome; Entrapment of right ulnar nerve at elbow [facility] Musculoskeletal, Sports and Spine, Physiatry [address] [address] Test Date: 10/26/2016 Patient Name: Shiloh Washington : 1955 Physician: Dr. Iggy Munoz MR #: [id number] Sex: Female Referring Physician: Dr. Kendall Ruiz HISTORY: Ms. Washington is a 61-year-old right-handed woman with a history of DM and right CTS s/p CTR re ferred for right hand pain. Patient reports 6 months ago she sustained a right wrist fractu re after a fall which repaired with ORIF. Infortunatley she fell shortly after surgery and needed a revision surgery which was complicated by an infection, so in all she has had 3 tatianna geries in the past 6 months. She reports that since the fall she has had numbness in all fi ngers and decreased book coverer strength, symptoms worse at night and with driving. She reports he r CTR was 20 years ago and she had resolution of her symptoms after surgery. 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 On exa m right APB weakness with thenar atrophy, reflex s symmetric, sensation normal over thenar eminence. Anti Sensory Summary Table Site NR Peak (ms) Norm Peak (ms) P-T Amp (V) Norm P-T Amp Site1 Site2 Delta-P (ms) Dist (cm) Tj (m/s) Norm Tj (m/s) Right Median Anti Sensory (2nd Digit) Wrist *NR <3.6 >10 Wrist 2nd Digit 14.0 >39 Right Radial Anti Sensory (Base 1st Digit) Wrist 1.8 <3.1 24.0 Wrist Base 1st Digit 1.8 0.0 Right Ulnar Anti Sensory (5th Digit) Wrist 3.6 <3.7 *9.7 >15.0 Wrist 5th Digit 3.6 14.0 39 >38 Motor Summary Table Site NR Onset (ms) Norm Onset (ms) O-P Amp (mV) Norm O-P Amp Site1 Site2 Delta-0 (ms) Dist (cm) Tj (m/s) Norm Tj (m/s) Right Median Motor (Abd Poll Brev) Wrist *7.3 <4.2 *1.8 >5 Elbow Wrist 4.6 24.0 52 >50 Elbow 11.9 1.7 Right Ulnar Motor (Abd Dig Minimi) Wrist 2.9 <4.2 5.8 >3 B Elbow Wrist 3.7 18.0 *49 >53 B Elbow 6.6 5.2 A Elbow B Elbow 1.5 10.0 67 >53 A Elbow 8.1 5.1 EMG Side Muscle Nerve Root Ins Act Fibs Psw Amp Dur Poly Recrt Int Pat Comment Right Abd Poll Brev Median C8-T1 *Incr *2+ *2+ *Incr Nml 0 *Reduced Nml Right ExtIndicis Radial (Post Int) C7-8 Nml Nml Nml Nml Nml 0 Nml Nml Right 1stDorInt Ulnar C8-T1 Nml Nml Nml Nml Nml 0 Nml Nml FINDINGS: 1. Right median SNAP was unelicitable. 2. Right radial SNAP was normal. 3. Right ulnar SNAP demonstrated normal peak latency and moderately reduced amplitude. 4. Right median CMAP demonstrated severely prolonged distal latency, severly reduced amplit ude, and normal amplitude. 5. Right ulnar CMAP demonstrated normal distal latency, normal amplitude, and mildly reduce d conduction velocity across the wrist. 6. Monopolar needle EMG of the selected muscles in the right upper extremity demonstrated i ncreased insertional activity with positive sharp-waves and fibrillations in the APB. On ac tivation, there was reduced recruitment of increased amplitude motor units in the APB; and n ormal recruitment of normal morphology motor units in all other muscles. IMPRESSION: This is an abnormal study. There is electrodiagnostic evidence of: 1. Right severe median mononeuropaty across the wrist (i.e. carpal tunnel syndrome). 2. 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 The lack of neurogenic changes in the EIP and FDI make right C8/T1 radiculopathy unlikely. Thank you for allowing me to perform neurodiagnostic testing on your patient. If you have a ny further questions or comments, please do not hesitate to call. Dr. Iggy Munoz Diplomate, [place] Board of Physical Medicine and Rehabilitation. documented in thi s encounter Plan of Treatment +--------+---------+ + + + | Date | Type | Specialty | Care Team | Description | +--------+---------+ + + + | 01/15/ | Office | Rheumatology | Trevon, | | | 2019 | Visit | | Jess Ortiz [facility] [address] | | | | | | [address] | | | | | | [place] [address] | | | | | | [phone] | | | | | | | | +--------+---------+ + + + documented as of this encounter Procedures + +--------+ + + + | Procedure Name | Priori | Date/Time | Associated Diagnosis | Comments | | | ty | | | | + +--------+ + + + | EMG STUDY | Routin | 10/30/2016 | Numbness and | Results for this | | | e | 4:47 PM | tingling in right | procedure are in the | | | | PDT | hand | results section. | + +--------+ + + + documented in this encounter Results EMG Study (10/30/2016 4:47 PM PDT) + + + | Narrative | Performed At | + + + | Oswaldo Munoz MD 10/30/2016 16:47 [facility] | | | [facility] Musculoskeletal, Sports and Spine, Physiatry [place] [facility] [address] [place] [id number] Ph: | | | Test Date: 10/26/2016 | | | Patient Name: Shiloh Washington : 1955 Physician: Dr. Parkinson | | | Tammy MR #: [id number] Sex: Female Referring Physician: | | | Kendall Ruiz HISTORY: Ms. Washington is a 61-year-old right-handed | | | woman with a history of DM and right CTS s/p CTR referred for right | | | hand pain. Patient reports 6 months ago she sustained a right | | | wrist fracture after a fall which repaired with ORIF. | | | Infortunatley she fell shortly after surgery and needed a revision | | | surgery which was complicated by an infection, so in all she has | | | had 3 surgeries in the past 6 months. She reports that since the | | | fall she has had numbness in all fingers and decreased book coverer | | | strength, symptoms worse at night and with driving. She reports | | | her CTR was 20 years ago and she had resolution of her symptoms | | | after surgery. 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 On exam right | | | APB weakness with thenar atrophy, reflex | | | | | | s symmetric, sensation normal over thenar eminence. Anti Sensory | | | Summary Table Site NR Peak (ms) Norm Peak (ms) P-T Amp ( V) Norm | | | P-T Amp Site1 Site2 Delta-P (ms) Dist (cm) Tj (m/s) Norm Tj (m/s) | | | Right Median Anti Sensory (2nd Digit) Wrist *NR <3.6 >10 Wrist | | | 2nd Digit 14.0 >39 Right Radial Anti Sensory (Base 1st Digit) | | | Wrist 1.8 <3.1 24.0 Wrist Base 1st Digit 1.8 0.0 Right | | | Ulnar Anti Sensory (5th Digit) Wrist 3.6 <3.7 *9.7 >15.0 Wrist | | | 5th Digit 3.6 14.0 39 >38 Motor Summary Table Site NR Onset | | | (ms) Norm Onset (ms) O-P Amp (mV) Norm O-P Amp Site1 Site2 Delta-0 | | | (ms) Dist (cm) Tj (m/s) Norm Tj (m/s) Right Median Motor (Abd Poll | | | Brev) Wrist *7.3 <4.2 *1.8 >5 Elbow Wrist 4.6 24.0 52 >50 | | | Elbow 11.9 1.7 Right Ulnar Motor (Abd Dig Minimi) | | | Wrist 2.9 <4.2 5.8 >3 B Elbow Wrist 3.7 18.0 *49 >53 B Elbow | | | 6.6 5.2 A Elbow B Elbow 1.5 10.0 67 >53 A Elbow 8.1 | | | 5.1 EMG Side Muscle Nerve Root Ins Act Fibs Psw | | | Amp Dur Poly Recrt Int Pat Comment Right Abd Poll Brev Median | | | C8-T1 *Incr *2+ *2+ *Incr Nml 0 *Reduced Nml Right ExtIndicis | | | Radial (Post Int) C7-8 Nml Nml Nml Nml Nml 0 Nml Nml Right | | | 1stDorInt Ulnar C8-T1 Nml Nml Nml Nml Nml 0 Nml Nml FINDINGS: | | | 1. Right median SNAP was unelicitable. 2. Right radial SNAP was | | | normal. 3. Right ulnar SNAP demonstrated normal peak latency and | | | moderately reduced amplitude. 4. Right median CMAP demonstrated | | | severely prolonged distal latency, severly reduced amplitude, and | | | normal amplitude. 5. Right ulnar CMAP demonstrated normal distal | | | latency, normal amplitude, and mildly reduced conduction velocity | | | across the wrist. 6. Monopolar needle EMG of the selected muscles | | | in the right upper extremity demonstrated increased insertional | | | activity with positive sharp-waves and fibrillations in the APB. | | | On activation, there was reduced recruitment of increased | | | amplitude motor units in the APB; and normal recruitment of normal | | | morphology motor units in all other muscles. IMPRESSION: This | | | is an abnormal study. There is electrodiagnostic evidence of: | | | 1. Right severe median mononeuropaty across the wrist (i.e. carpal | | | tunnel syndrome). 2. 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 | | | The lack of neurogenic changes in the EIP and FDI make right C8/T1 | | | radiculopathy unlikely. Thank you for allowing me to perform | | | neurodiagnostic testing on your patient. If you have any further | | | questions or comments, please do not hesitate to call. | | | Dr. Iggy Munoz Diplomate, [place] | | | Board of Physical Medicine and Rehabilitation. | | | | | + + + documented in this encounter Visit Diagnoses + + | Diagnosis | + + | Numbness and tingling in right hand Disturbance of skin sensation | + + | Right carpal tunnel syndrome Carpal tunnel syndrome | + + | Entrapment of right ulnar nerve at elbow | + + documented in this encounter
--- OUTSIDE RECORDS SUMMARY | ~2020-01-02 | XMS | Encounter Summary ---
Demographics + + + | Address | [address] | | | [place] [address] | + + + | Home Phone | | + + + | Preferred Language | Unknown | + + + | Marital Status | | + + + | Evangelical Affiliation | CAT | + + + [...] Team Providers + +------+ + | Care Dental Scheduling Coordinator Name | Role | Phone | + +------+ + PCP | Unavailable | + +------+ + Encounter Details +--------+ + + + + | Date | Type | Department | Care Team | Description | +--------+ + + + + | 04/10/ | Discharge | | Summary, Discharge | D/C Summary ODDS | | 2005 | Summary-Tra | | | | | [...] as of this encounter Discharge Summaries Interface, Molding Cutter In - 10/25/2004 1:16 AM PDT [id number] ADRIANA OSEGUERA Admission Date: 06/28/2004 Discharge Date: 07/05/2004 Staff Physician: Best Sabillon M.D. Principal Final Diagnosis: Acute respiratory distress syndrome. Additional Diagnoses 1. Hypotension. 2. Status post intraabdominal bleed after SULEMAN/BSO. 3. Diabetes type 2. 4. Small bowel hernia through surgical paraumbilical incision. Principal Procedure: MICU care. Additional Procedures 1. Intubation. 2. Chest x-rays. 3. IV fluids and pressors. 4. Gynecology consult. 5. Blood cultures and sputum cultures. 6. Abdominal CT. 7. Surgical consult. Reason for Admission: This is a 49-year-old female who initially had an elective SULEMAN/BSO done at [facility] on June 23, 2004, then developed a postoperative intraabdominal bleed which then required an exploratory laparotomy that showed bleeding in the omentum for which she received a partial omentectomy. She was also transfused with 6 units of packed red blood cells at [facility] to keep her hematocrit above 28. She then however developed increasing hypoxia and bilateral ground-glass opacities on serial chest x-rays. A chest CT was also done at [facility] that was negative for pulmonary embolus on June 26, 2004. She was diagnosed with probable acute respiratory distress syndrome and was intubated on June 28, 2004, then transferred here to [facility] for care in the Intensive Care Unit. Hospital Course 1. Acute respiratory distress syndrome: The patient had gradual resolution of her acute respiratory distress syndrome. It is unclear what originally triggered her ARDS and if there was a component of cardiogenic edema to it. She did respond with improvement of her effusions rapidly with administration of IV Lasix but this could also be the natural history of the disease, especially if there was a transfusion reaction. Please see the transfer discharge summary from the MICU for further details. At that time, she was transferred to the floor on July 02, 2004. She was having good oxygen saturations of over 95% on 3 L of oxygen via nasal cannula. She had been extubated on July 01, 2004. Her respiratory status rapidly improved and she was weaned to 0.5 L of oxygen by July 03, 2004, and was stable on room air by July 04, 2004. Serial chest x-rays from June 30, 2004 through July 02, 2004, showed that her ARDS versus aspiration pneumonitis and bibasilar atelectasis were all resolving. By the time of discharge, the patient was stable on room air even after ambulation. 2. Cardiovascular: Please see the MICU discharge note for details of cardiovascular status during her ICU stay. Briefly the patient initially required IV fluids and pressors for hypotension that responded well and then actually became fluid overloaded, but responded well to IV Lasix diuresis. By the time she was transferred to the floor on July 02, 2004, she was hemodynamically stable and she remained so for the rest of her hospitalization. 3. Hematology: The patient was status post transfusion with 6 units of packed red blood cells when she was transferred to [facility]. Throughout her hospitalization here, her hematocrit has been stable. On the day of discharge, her hematocrit is 32.8. 4. Status post SULEMAN/BSO, exploratory laparotomy, and omentectomy. An abdominal CT scan on July 01, 2004, was done to look for abscesses. No abscesses were seen, however there was a ventral infraumbilical incisional hernia containing herniated loops of small bowel without obstruction visualized. The patient was without any symptoms of abdominal pain and her incisional site looked well healed and julia were removed on postoperative day #10 on July 03, 2004. A surgical consult to obtained to examine the patient and look at the abdominal CT to determine whether the patient needed emergent surgery. As she was without symptoms and there were no obstructed areas in her small bowel, she can follow up with this issue as an outpatient. She did develop some nausea on July 04, 2004. She was monitored for an additional day in the hospital to make sure that that resolved. That nausea was most likely secondary to combination of both the Mucomyst that she had received following her abdominal CT and also secondary to constipation as the patient had gone for 3 days without a bowel movement. When she did have a bowel movement later in the day, her nausea resolved slowly. She never had any symptoms of abdominal pain or discomfort. Importantly the patient has been told that she should make an appointment to see General Surgery or Gynecological Surgery at [facility] to follow up with her hernia. 5. Infectious Disease: The patient had some low-grade fevers while she was in the Intensive Care Unit likely secondary to atelectasis, however she was given dosing from June 28, 2004 through July 02, 2004, until her blood cultures were no growth after 5 days. Throughout the rest of her hospitalization, the patient was afebrile. As mentioned above, there was no intraabdominal abscess seen on her abdominal CT scan. The patient initially had an elevated white cell count of 18.7 on June 28, 2004, when she was admitted with 93% neutrophils which was part of the reason why she was started on Zosyn. Her neutrophil count gradually normalized to 68% by July 02, 2004, and her white cell count also normalized to 10.2 by July 05, 2004, the day of her discharge. 6. Fluids, electrolytes, and nutrition: The patient had been on tube feeds while she was in the Intensive Care Unit, but this was discontinued prior to her transfer to the floor on July 02, 2004, and from July 02, 2004 to time of the patient's discharge, we were able to advance her diet from clears to a full diabetic diet and she had no problems tolerating that. 7. Diabetes type 2: While the patient was in the Intensive Care Unit, she was on an insulin drip to control her blood glucose levels. This was converted from insulin drip to subcutaneous Lantus as the patient takes at home on July 03, 2004, and her blood glucose levels have been stable. When she goes home, the patient will resume her full Lantus dose of 48 units subcutaneously every morning and start taking her Avandia and metformin as well. 8. Genitourinary: The patient had a suprapubic catheter placed by Gynecology which she used throughout her ICU stay. This was removed when she was transferred to the floor and she had no problems with urine output without the catheter in place. 9. Aphthous ulcers: The patient has aphthous ulcers in the area of her left lower lip secondary to trauma from intubation, so we will give her Kenalog in orabase to help reduce the inflammation as well as Orajel to help with the pain. Discharge Medication(s) 1. Paxil 20 mg p.o. q. day. 2. Ranitidine 150 mg p.o. b.i.d. p.r.n. heartburn. 3. Actos resume home dose. 4. Metformin resume home dose. 5. Lantus 48 units subcutaneously q.a.m. 6. Celebrex resume home dose. 7. Kenalog in orabase 0.1% paste, apply small amount 3 to 4 times daily to lower lip. 8. Orajel 10% gel, apply small 3 times a day to lower lip for pain, do not use more than 7 days. Discharge Instruction(s): Diet: ADA 2000 Kcal diet. Activity: As tolerated. Followup: The patient has been instructed to make a follow-up appointment within this week at [facility] with her primary care physician Dr. Vicente. Also the patient has been instructed to follow up with either General Surgery or Gynecologic Surgery for nonemergent repair of her hernia. Minna Edmonds M.D. / DOLLY [id number] / [id number] / [id number] / Minna Vicente FAX: [phone] Electronically signed by Best Sabillon 07-14-2004 10:54:39 AM documented i n this encounter Plan of Treatment Not on filedocumented as of this encounter Visit Diagnoses Not on filedocumented in this encounter"
--- OUTSIDE RECORDS SUMMARY | ~2020-01-02 | XMS | Encounter Summary ---
Demographics + + + | Address | [address] | | | [place] [address] | + + + | Home Phone | | + + + | Preferred Language | Unknown | + + + | Marital Status | | + + + | Latter-Day Affiliation | CAT | + + + | Race | or | + + + | Ethnic Group | Not or | + + + Author + + + | Author | [facility] | + + + | Organization | [facility] | + + + | Address | Unknown | + + + | Phone | Unavailable | + + + Support + + +---------+ + | Name | Relationship | Address | Phone | + + +---------+ + | Giacomo [place] | ECON | Unknown | | + + +---------+ + Care Team Providers + +------+ + | Care Rolling Machine Operator Name | Role | Phone | + +------+ + | Kendall Ruiz MD | PCP | | + +------+ + Encounter Details +--------+ + + + + | Date | Type | Department | Care Team | Description | +--------+ + + + + | 06/28/ | Hospital | Registration [id number] | [address], | | | 2004 | Activity | [address] MD | | | | | Rd Mailcode: [id number] | | | | | | [place], [place] | | | | | | [address] | | | | | | [phone] | | | +--------+ + + + [...] | + +--------+ + + + | COMPLETE METABOLIC | Routin | 07/05/2004 | | Results for this | | SET | e | 6:28 AM | | procedure are in the | | (NA,K,CL,CO2,BUN,CRE | | PDT | | results section. | | AT,GLUC,CA,AST,ALT,B | | | | | | NIC TOTAL,ALK | | | | | | PHOS,ALB,PROT TOTAL) | | | | | + +--------+ + + + | CBC ONLY | Routin | 07/05/2004 | | Results for this | | | e | 6:28 AM | | procedure are in the | | | | PDT | | results section. | + +--------+ + + + | BASIC METABOLIC SET | Routin | 07/04/2004 | | Results for this | | (NA, K, CL, TCO2, | e | 6:17 AM | | procedure are in the | | BUN, CR, GLU, CA) | | PDT | | results section. | + +--------+ + + + | CBC ONLY | Routin | 07/04/2004 | | Results for this | | | e | 6:17 AM | | procedure are in the | | | | PDT | | results section. | + +--------+ + + + | COMPLETE METABOLIC | Routin | 07/03/2004 | | Results for this | | SET | e | 6:15 AM | | procedure are in the | | (NA,K,CL,CO2,BUN,CRE | | PDT | | results section. | | AT,GLUC,CA,AST,ALT,B | | | | | | NIC TOTAL,ALK | | | | | | PHOS,ALB,PROT TOTAL) | | | | | + +--------+ + + + | CBC ONLY | Routin | 07/03/2004 | | Results for this | | | e | 6:15 AM | | procedure are in the | | | | PDT | | results section. | + +--------+ + + + | CULTURE, CATH TIP | Routin | 07/02/2004 | | Results for this | | BACTI | e | 6:40 PM | | procedure are in the | | | | PDT | | results section. | + +--------+ + + + | X-RAY CHEST 1 VIEW | Urgent | 07/02/2004 | | Results for this | | | | 1:47 PM | | procedure are in the | | | | PDT | | results section. | + +--------+ + + + | COMPLETE METABOLIC | Urgent | 07/02/2004 | | Results for this | | SET | | 5:00 AM | | procedure are in the | | (NA,K,CL,CO2,BUN,CRE | | PDT | | results section. | | AT,GLUC,CA,AST,ALT,B | | | | | | NIC TOTAL,ALK | | | | | | PHOS,ALB,PROT TOTAL) | | | | | + +--------+ + + + | EXTENDED DIFF | Urgent | 07/02/2004 | | Results for this | | | | 3:00 AM | | procedure are in the | | | | PDT | | results section. | + +--------+ + + + | MANUAL DIFFERENTIAL | Urgent | 07/02/2004 | | Results for this | | | | 3:00 AM | | procedure are in the | | | | PDT | | results section. | + +--------+ + + + | DIFFERENTIAL | Urgent | 07/02/2004 | | Results for this | | | | 3:00 AM | | procedure are in the | | | | PDT | | results section. | + +--------+ + + + | INR | Urgent | 07/02/2004 | | Results for this | | | | 3:00 AM | | procedure are in the | | | | PDT | | results section. | + +--------+ + + + | CBC, WITH | Urgent | 07/02/2004 | | Results for this | | DIFFERENTIAL | | 3:00 AM | | procedure are in the | | | | PDT | | results section. | + +--------+ + + + | COMPLETE METABOLIC | Urgent | 07/02/2004 | | Results for this | | SET | | 3:00 AM | | procedure are in the | | (NA,K,CL,CO2,BUN,CRE | | PDT | | results section. | | AT,GLUC,CA,AST,ALT,B | | | | | | NIC TOTAL,ALK | | | | | | PHOS,ALB,PROT TOTAL) | | | | | + +--------+ + + + | PHOSPHORUS, PLASMA | Urgent | 07/02/2004 | | Results for this | | | | 3:00 AM | | procedure are in the | | | | PDT | | results section. | + +--------+ + + + | MAGNESIUM, PLASMA | Urgent | 07/02/2004 | | Results for this | | | | 3:00 AM | | procedure are in the | | | | PDT | | results section. | + +--------+ + + + | CT PELVIS W IV | Routin | 07/01/2004 | | Results for this | | CONTRAST | e | 3:40 PM | | procedure are in the | | | | PDT | | results section. | + +--------+ + + + | CT ABDOMEN W IV | Routin | 07/01/2004 | | Results for this | | CONTRAST | e | 3:40 PM | | procedure are in the | | | | PDT | | results section. | + +--------+ + + + | POTASSIUM, PLASMA | Urgent | 07/01/2004 | | Results for this | | | | 1:00 PM | | procedure are in the | | | | PDT | | results section. | + +--------+ + + + | BLOOD GASES, | Urgent | 07/01/2004 | | Results for this | | ARTERIAL - LAB | | 8:20 AM | | procedure are in the | | | | PDT | | results section. | + +--------+ + + + | X-RAY CHEST 1 VIEW | Routin | 07/01/2004 | | Results for this | | | e | 7:04 AM | | procedure are in the | | | | PDT | | results section. | + +--------+ + + + | DIFFERENTIAL | Urgent | 07/01/2004 | | Results for this | | | | 3:00 AM | | procedure are in the | | | | PDT | | results section. | + +--------+ + + + | CBC, WITH | Urgent | 07/01/2004 | | Results for this | | DIFFERENTIAL | | 3:00 AM | | procedure are in the | | | | PDT | | results section. | + +--------+ + + + | BASIC METABOLIC SET | Urgent | 07/01/2004 | | Results for this | | (NA, K, CL, TCO2, | | 3:00 AM | | procedure are in the | | BUN, CR, GLU, CA) | | PDT | | results section. | + +--------+ + + + | PHOSPHORUS, PLASMA | Urgent | 07/01/2004 | | Results for this | | | | 3:00 AM | | procedure are in the | | | | PDT | | results section. | + +--------+ + + + | CALCIUM, IONIZED, | Urgent | 07/01/2004 | | Results for this | | WHOLE BLOOD | | 3:00 AM | | procedure are in the | | | | PDT | | results section. | + +--------+ + + + | MAGNESIUM, PLASMA | Urgent | 07/01/2004 | | Results for this | | | | 3:00 AM | | procedure are in the | | | | PDT | | results section. | + +--------+ + + + | POTASSIUM, PLASMA | Urgent | 06/30/2004 | | Results for this | | | | 10:00 PM | | procedure are in the | | | | PDT | | results section. | + +--------+ + + + | CULTURE, SPUTUM | Routin | 06/30/2004 | | Results for this | | | e | 8:50 PM | | procedure are in the | | | | PDT | | results section. | + +--------+ + + + | CULTURE, BLOOD BACTI | Routin | 06/30/2004 | | Results for this | | & YEAST | e | 8:50 PM | | procedure are in the | | | | PDT | | results section. | + +--------+ + + + | CULTURE, URINE BACTI | Routin | 06/30/2004 | | Results for this | | | e | 8:30 PM | | procedure are in the | | | | PDT | | results section. | + +--------+ + + + | CULTURE, BLOOD BACTI | Routin | 06/30/2004 | | Results for this | | & YEAST | e | 8:25 PM | | procedure are in the | | | | PDT | | results section. | + +--------+ + + + | POTASSIUM, PLASMA | Urgent | 06/30/2004 | | Results for this | | | | 12:20 PM | | procedure are in the | | | | PDT | | results section. | + +--------+ + + + | MAGNESIUM, PLASMA | Urgent | 06/30/2004 | | Results for this | | | | 12:20 PM | | procedure are in the | | | | PDT | | results section. | + +--------+ + + + | X-RAY CHEST 1 VIEW | Priori | 06/30/2004 | | Results for this | | | ty | 4:45 AM | | procedure are in the | | | | PDT | | results section. | + +--------+ + + + | DIFFERENTIAL | Urgent | 06/30/2004 | | Results for this | | | | 4:10 AM | | procedure are in the | | | | PDT | | results section. | + +--------+ + + + | INR | Urgent | 06/30/2004 | | Results for this | | | | 4:10 AM | | procedure are in the | | | | PDT | | results section. | + +--------+ + + + | CBC, WITH | Urgent | 06/30/2004 | | Results for this | | DIFFERENTIAL | | 4:10 AM | | procedure are in the | | | | PDT | | results section. | + +--------+ + + + | COMPLETE METABOLIC | Urgent | 06/30/2004 | | Results for this | | SET | | 4:10 AM | | procedure are in the | | (NA,K,CL,CO2,BUN,CRE | | PDT | | results section. | | AT,GLUC,CA,AST,ALT,B | | | | | | NIC TOTAL,ALK | | | | | | PHOS,ALB,PROT TOTAL) | | | | | + +--------+ + + + | PHOSPHORUS, PLASMA | Urgent | 06/30/2004 | | Results for this | | | | 4:10 AM | | procedure are in the | | | | PDT | | results section. | + +--------+ + + + | BLOOD GASES, | Urgent | 06/30/2004 | | Results for this | | ARTERIAL - LAB | | 4:10 AM | | procedure are in the | | | | PDT | | results section. | + +--------+ + + + | MAGNESIUM, PLASMA | Urgent | 06/30/2004 | | Results for this | | | | 4:10 AM | | procedure are in the | | | | PDT | | results section. | + +--------+ + + + | BASIC METABOLIC SET | Urgent | 06/29/2004 | | Results for this | | (NA, K, CL, TCO2, | | 3:55 PM | | procedure are in the | | BUN, CR, GLU, CA) | | PDT | | results section. | + +--------+ + + + | BLOOD GASES, | Urgent | 06/29/2004 | | Results for this | | ARTERIAL - LAB | | 12:25 PM | | procedure are in the | | | | PDT | | results section. | + +--------+ + + + | CULTURE, SPUTUM | Routin | 06/29/2004 | | Results for this | | | e | 11:00 AM | | procedure are in the | | | | PDT | | results section. | + +--------+ + + + | VANCOMYCIN, TROUGH | Urgent | 06/29/2004 | | Results for this | | | | 9:05 AM | | procedure are in the | | | | PDT | | results section. | + +--------+ + + + | X-RAY CHEST 1 VIEW | Urgent | 06/29/2004 | | Results for this | | | | 6:16 AM | | procedure are in the | | | | PDT | | results section. | + +--------+ + + + | DIFFERENTIAL | Urgent | 06/29/2004 | | Results for this | | | | 4:25 AM | | procedure are in the | | | | PDT | | results section. | + +--------+ + + + | SLIDE REVIEW | Urgent | 06/29/2004 | | Results for this | | | | 4:25 AM | | procedure are in the | | | | PDT | | results section. | + +--------+ + + + | INR | Urgent | 06/29/2004 | | Results for this | | | | 4:25 AM | | procedure are in the | | | | PDT | | results section. | + +--------+ + + + | CBC, WITH | Urgent | 06/29/2004 | | Results for this | | DIFFERENTIAL | | 4:25 AM | | procedure are in the | | | | PDT | | results section. | + +--------+ + + + | COMPLETE METABOLIC | Urgent | 06/29/2004 | | Results for this | | SET | | 4:25 AM | | procedure are in the | | (NA,K,CL,CO2,BUN,CRE | | PDT | | results section. | | AT,GLUC,CA,AST,ALT,B | | | | | | NIC TOTAL,ALK | | | | | | PHOS,ALB,PROT TOTAL) | | | | | + +--------+ + + + | PHOSPHORUS, PLASMA | Urgent | 06/29/2004 | | Results for this | | | | 4:25 AM | | procedure are in the | | | | PDT | | results section. | + +--------+ + + + | LACTATE | Urgent | 06/29/2004 | | Results for this | | | | 4:25 AM | | procedure are in the | | | | PDT | | results section. | + +--------+ + + + | BLOOD GASES, | Urgent | 06/29/2004 | | Results for this | | ARTERIAL - LAB | | 4:25 AM | | procedure are in the | | | | PDT | | results section. | + +--------+ + + + | MAGNESIUM, PLASMA | Urgent | 06/29/2004 | | Results for this | | | | 4:25 AM | | procedure are in the | | | | PDT | | results section. | + +--------+ + + + | BLOOD GASES, | Urgent | 06/29/2004 | | Results for this | | ARTERIAL - LAB | | 1:00 AM | | procedure are in the | | | | PDT | | results section. | + +--------+ + + + | BLOOD GASES, VENOUS | Urgent | 06/29/2004 | | Results for this | | - LAB | | 12:10 AM | | procedure are in the | | | | PDT | | results section. | + +--------+ + + + | CORTISOL, SERUM | Routin | 06/28/2004 | | Results for this | | | e | 11:45 PM | | procedure are in the | | | | PDT | | results section. | + +--------+ + + + | BASIC METABOLIC SET | Urgent | 06/28/2004 | | Results for this | | (NA, K, CL, TCO2, | | 10:10 PM | | procedure are in the | | BUN, CR, GLU, CA) | | PDT | | results section. | + +--------+ + + + | PHOSPHORUS, PLASMA | Urgent | 06/28/2004 | | Results for this | | | | 10:10 PM | | procedure are in the | | | | PDT | | results section. | + +--------+ + + + | CALCIUM, IONIZED, | Urgent | 06/28/2004 | | Results for this | | WHOLE BLOOD | | 10:10 PM | | procedure are in the | | | | PDT | | results section. | + +--------+ + + + | MAGNESIUM, PLASMA | Urgent | 06/28/2004 | | Results for this | | | | 10:10 PM | | procedure are in the | | | | PDT | | results section. | + +--------+ + + + | CORTISOL, SERUM | Routin | 06/28/2004 | | Results for this | | | e | 10:10 PM | | procedure are in the | | | | PDT | | results section. | + +--------+ + + + | HEMATOCRIT | Urgent | 06/28/2004 | | Results for this | | | | 10:00 PM | | procedure are in the | | | | PDT | | results section. | + +--------+ + + + | CULTURE, BLOOD BACTI | Routin | 06/28/2004 | | Results for this | | & YEAST | e | 9:30 PM | | procedure are in the | | | | PDT | | results section. | + +--------+ + + + | BLOOD GASES, | Urgent | 06/28/2004 | | Results for this | | ARTERIAL - LAB | | 6:40 PM | | procedure are in the | | | | PDT | | results section. | + +--------+ + + + | LACTATE | Urgent | 06/28/2004 | | Results for this | | | | 6:10 PM | | procedure are in the | | | | PDT | | results section. | + +--------+ + + + | DUSTIN ROGEL ONLY | Urgent | 06/28/2004 | | Results for this | | | | 5:00 PM | | procedure are in the | | | | PDT | | results section. | + +--------+ + + + | URINE, MICROSCOPIC | Urgent | 06/28/2004 | | Results for this | | EXAM | | 5:00 PM | | procedure are in the | | | | PDT | | results section. | + +--------+ + + + | CULTURE, URINE BACTI | Routin | 06/28/2004 | | Results for this | | | e | 5:00 PM | | procedure are in the | | | | PDT | | results section. | + +--------+ + + + | X-RAY CHEST 1 VIEW | Routin | 06/28/2004 | | Results for this | | | e | 3:22 PM | | procedure are in the | | | | PDT | | results section. | + +--------+ + + + | DIFFERENTIAL | Urgent | 06/28/2004 | | Results for this | | | | 2:30 PM | | procedure are in the | | | | PDT | | results section. | + +--------+ + + + | SLIDE REVIEW | Urgent | 06/28/2004 | | Results for this | | | | 2:30 PM | | procedure are in the | | | | PDT | | results section. | + +--------+ + + + | INR | Urgent | 06/28/2004 | | Results for this | | | | 2:30 PM | | procedure are in the | | | | PDT | | results section. | + +--------+ + + + | CBC, WITH | Urgent | 06/28/2004 | | Results for this | | DIFFERENTIAL | | 2:30 PM | | procedure are in the | | | | PDT | | results section. | + +--------+ + + + | TROPONIN I, PLASMA | Urgent | 06/28/2004 | | Results for this | | | | 2:30 PM | | procedure are in the | | | | PDT | | results section. | + +--------+ + + + | COMPLETE METABOLIC | Urgent | 06/28/2004 | | Results for this | | SET | | 2:30 PM | | procedure are in the | | (NA,K,CL,CO2,BUN,CRE | | PDT | | results section. | | AT,GLUC,CA,AST,ALT,B | | | | | | NIC TOTAL,ALK | | | | | | PHOS,ALB,PROT TOTAL) | | | | | + +--------+ + + + | APTT (ACT. PART. | Urgent | 06/28/2004 | | Results for this | | THROMBO TIME) | | 2:30 PM | | procedure are in the | | | | PDT | | results section. | + +--------+ + + + | TYPE AND CROSSMATCH | Routin | 06/28/2004 | | Results for this | | | e | 2:30 PM | | procedure are in the | | | | PDT | | results section. | + +--------+ + + + | CULTURE, BLOOD BACTI | Routin | 06/28/2004 | | Results for this | | & YEAST | e | 2:30 PM | | procedure are in the | | | | PDT | | results section. | + +--------+ + + + | PHOSPHORUS, PLASMA | Urgent | 06/28/2004 | | Results for this | | | | 2:30 PM | | procedure are in the | | | | PDT | | results section. | + +--------+ + + + | TSH | Routin | 06/28/2004 | | Results for this | | | e | 2:30 PM | | procedure are in the | | | | PDT | | results section. | + +--------+ + + + | KETONE, PLASMA | Routin | 06/28/2004 | | Results for this | | | e | 2:30 PM | | procedure are in the | | | | PDT | | results section. | + +--------+ + + + | CALCIUM, IONIZED, | Urgent | 06/28/2004 | | Results for this | | WHOLE BLOOD | | 2:30 PM | | procedure are in the | | | | PDT | | results section. | + +--------+ + + + | BLOOD GASES, | Urgent | 06/28/2004 | | Results for this | | ARTERIAL - LAB | | 2:30 PM | | procedure are in the | | | | PDT | | results section. | + +--------+ + + + | MAGNESIUM, PLASMA | Urgent | 06/28/2004 | | Results for this | | | | 2:30 PM | | procedure are in the | | | | PDT | | results section. | + +--------+ + + + documented in this encounter Results CBC ONLY WITH PLATELET (07/05/2004 6:28 AM PDT) + + + + + + | Component | Value | Ref Range | Performed | Pathologist | | | | | At | Signature | + + + + + + | WHITE CELL | 10.2 | 4.4 - 11.0 K/cu | [facility] | | | COUNT | | mm | DEPARTMENT | | | | | | OF | | | | | | PATHOLOGY | | + + + + + + | RED CELL | 3.70 | 3.65 - 5.10 | [facility] | | | COUNT | | M/cu mm | DEPARTMENT | | | | | | OF | | | | | | PATHOLOGY | | + + + + + + | HEMOGLOBIN | 10.9 (L) | 11.4 - 15.0 | [facility] | | | | | g/dL | DEPARTMENT | | | | | | OF | | | | | | PATHOLOGY | | + + + + + + | HEMATOCRIT | 32.8 (L) | 33.0 - 44.6 % | [facility] | | | | | | DEPARTMENT | | | | | | OF | | | | | | PATHOLOGY | | + + + + + + | MCV | 88.5 | 80.0 - 96.0 fL | [facility] | | | | | | DEPARTMENT | | | | | | OF | | | | | | PATHOLOGY | | + + + + + + | MCHC | 33.4 | 33.4 - 35.5 | [facility] | | | | | g/dL | DEPARTMENT | | | | | | OF | | | | | | PATHOLOGY | | + + + + + + | RDW | 14.9 | 11.5 - 15.0 % | [facility] | | | | | | DEPARTMENT | | | | | | OF | | | | | | PATHOLOGY | | + + + + + + | PLATELET | 606 (H) | 150 - 400 K/cu | [...] DEPARTMENT OF | [address] | [place] [address] | | | PATHOLOGY | [address] | | | + + + + + | [facility] DEPARTMENT OF | [address] | [place] [address] | | | PATHOLOGY | [address] | | | + + + + + COMP METABOLIC SET (07/05/2004 6:28 AM PDT) + +---------+ + + + | Component | Value | Ref Range | Performed | Pathologist | | | | | At | Signature | + +---------+ + + + | GLUCOSE, | 167 (H) | 65 - 110 mg/dL | [facility] | | | PLASMA | | | DEPARTMENT | | | (LAB) | | | OF | | | | | | PATHOLOGY | | + +---------+ + + + | BUN, PLASMA | 6 | 6 - 20 mg/dL | [facility] | | | (LAB) | | | DEPARTMENT | | | | | | OF | | | | | | PATHOLOGY | | + +---------+ + + + | CREATININE | 0.7 | 0.6 - 1.1 mg/dL | [facility] | | | PLASMA | | | DEPARTMENT | | | (LAB) | | | OF | | | | | | PATHOLOGY | | + +---------+ + + + | TOTAL | 6.5 | 6.1 - 7.9 g/dL | [facility] | | | PROTEIN, | | | DEPARTMENT | | | PLASMA | | | OF | | | (LAB) | | | PATHOLOGY | | + +---------+ + + + | ALBUMIN, | 2.6 (L) | 3.5 - 4.7 g/dL | [facility] | | | PLASMA | | | DEPARTMENT | | | (LAB) | | | OF | | | | | | PATHOLOGY | | + +---------+ + + + | CALCIUM, | 8.2 (L) | 8.5 - 10.5 | [facility] | | | PLASMA | | mg/dL | DEPARTMENT | | | (LAB) | | | OF | | | | | | PATHOLOGY | | + +---------+ + + + | BILIRUBIN | 0.6 | 0.3 - 1.2 mg/dL | [facility] | | | TOTAL | | | DEPARTMENT | | | | | | OF | | | | | | PATHOLOGY | | + +---------+ + + + | ALK PHOS | 97 | 42 - 98 U/L | [facility] | | | | | | DEPARTMENT | | | | | | OF | | | | | | PATHOLOGY | | + +---------+ + + + | AST(SGOT) | 21 | 15 - 41 U/L | [facility] | | | | | | DEPARTMENT | | | | | | OF | | | | | | PATHOLOGY | | + +---------+ + + + | SODIUM, | 136 | 136 - 145 | [facility] | | | PLASMA | | mmol/L | DEPARTMENT | | | (LAB) | | | OF | | | | | | PATHOLOGY | | + +---------+ + + + | POTASSIUM, | 3.7 | 3.5 - 5.1 | [facility] | | | PLASMA | | mmol/L | DEPARTMENT | | | (LAB) | | | OF | | | | | | PATHOLOGY | | + +---------+ + + + | CHLORIDE, | 105 | 98 - 107 mmol/L | [facility] | | | PLASMA | | | DEPARTMENT | | | (LAB) | | | OF | | | | | | PATHOLOGY | | + +---------+ + + + | TOTAL CO2, | 26 | 23 - 29 mmol/L | [facility] | | | PLASMA | | | DEPARTMENT | | | (LAB) | | | OF | | | | | | PATHOLOGY | | + +---------+ + + + | ALT (SGPT) | 26 | 13 - 48 U/L | [facility] | | | | | [...] | + + + + + | [facility] | [facility] | [place] [address] | | | PATHOLOGY | [address] | | | + + + + + | [facility] | [address] [place] [address] | [place] [address] | | | PATHOLOGY | [address] | | | + + + + + CBC ONLY WITH PLATELET (07/04/2004 6:17 AM PDT) + + + + + + | Component | Value | Ref Range | Performed | Pathologist | | | | | At | Signature | + + + + + + | WHITE CELL | 11.7 (H) | 4.4 - 11.0 K/cu | [facility] | | | COUNT | | mm | DEPARTMENT | | | | | | OF | | | | | | PATHOLOGY | | + + + + + + | RED CELL | 3.84 | 3.65 - 5.10 | [facility] | | | COUNT | | M/cu mm | DEPARTMENT | | | | | | OF | | | | | | PATHOLOGY | | + + + + + + | HEMOGLOBIN | 11.4 | 11.4 - 15.0 | [facility] | | | | | g/dL | DEPARTMENT | | | | | | OF | | | | | | PATHOLOGY | | + + + + + + | HEMATOCRIT | 34.0 | 33.0 - 44.6 % | [facility] | | | | | | DEPARTMENT | | | | | | OF | | | | | | PATHOLOGY | | + + + + + + | MCV | 88.4 | 80.0 - 96.0 fL | [facility] | | | | | | DEPARTMENT | | | | | | OF | | | | | | PATHOLOGY | | + + + + + + | MCHC | 33.5 | 33.4 - 35.5 | [facility] | | | | | g/dL | DEPARTMENT | | | | | | OF | | | | | | PATHOLOGY | | + + + + + + | RDW | 14.8 | 11.5 - 15.0 % | [facility] | | | | | | DEPARTMENT | | | | | | OF | | | | | | PATHOLOGY | | + + + + + + | PLATELET | 591 (H) | 150 - 400 K/cu | [...] | + + + + + | [facility] | [address] [facility] | [place] [address] | | | PATHOLOGY | [address] | | | + + + + + | [facility] | [address] [place] [address] | [place] [address] | | | PATHOLOGY | [address] | | | + + + + + BASIC METABOLIC SET (07/04/2004 6:17 AM PDT) + +---------+ + + + | Component | Value | Ref Range | Performed | Pathologist | | | | | At | Signature | + +---------+ + + + | GLUCOSE, | 164 (H) | 65 - 110 mg/dL | [facility] | | | PLASMA | | | DEPARTMENT | | | (LAB) | | | OF | | | | | | PATHOLOGY | | + +---------+ + + + | BUN, PLASMA | 3 (L) | 6 - 20 mg/dL | [facility] | | | (LAB) | | | DEPARTMENT | | | | | | OF | | | | | | PATHOLOGY | | + +---------+ + + + | CREATININE | 0.7 | 0.6 - 1.1 mg/dL | [facility] | | | PLASMA | | | DEPARTMENT | | | (LAB) | | | OF | | | | | | PATHOLOGY | | + +---------+ + + + | SODIUM, | 138 | 136 - 145 | [facility] | | | PLASMA | | mmol/L | DEPARTMENT | | | (LAB) | | | OF | | | | | | PATHOLOGY | | + +---------+ + + + | POTASSIUM, | 3.7 | 3.5 - 5.1 | [facility] | | | PLASMA | | mmol/L | DEPARTMENT | | | (LAB) | | | OF | | | | | | PATHOLOGY | | + +---------+ + + + | CHLORIDE, | 105 | 98 - 107 mmol/L | [facility] | | | PLASMA | | | DEPARTMENT | | | (LAB) | | | OF | | | | | | PATHOLOGY | | + +---------+ + + + | TOTAL CO2, | 26 | 23 - 29 mmol/L | [facility] | | | PLASMA | | | DEPARTMENT | | | (LAB) | | | OF | | | | | | PATHOLOGY | | + +---------+ + + + | CALCIUM, | 8.5 | 8.5 - 10.5 | [facility] | | | PLASMA | [...] | + + + + + | [facility] DEPARTMENT OF | [id number] | [place] [address] | | | PATHOLOGY | [address] | | | + + + + + | [facility] DEPARTMENT OF | [address] | [place] [address] | | | PATHOLOGY | [address] | | | + + + + + CBC ONLY WITH PLATELET (07/03/2004 6:15 AM PDT) + + + + + + | Component | Value | Ref Range | Performed | Pathologist | | | | | At | Signature | + + + + + + | WHITE CELL | 13.9 (H) | 4.4 - 11.0 K/cu | [facility] | | | COUNT | | mm | DEPARTMENT | | | | | | OF | | | | | | PATHOLOGY | | + + + + + + | RED CELL | 3.77 | 3.65 - 5.10 | [facility] | | | COUNT | | M/cu mm | DEPARTMENT | | | | | | OF | | | | | | PATHOLOGY | | + + + + + + | HEMOGLOBIN | 11.3 (L) | 11.4 - 15.0 | [facility] | | | | | g/dL | DEPARTMENT | | | | | | OF | | | | | | PATHOLOGY | | + + + + + + | HEMATOCRIT | 33.6 | 33.0 - 44.6 % | [facility] | | | | | | DEPARTMENT | | | | | | OF | | | | | | PATHOLOGY | | + + + + + + | MCV | 89.1 | 80.0 - 96.0 fL | [facility] | | | | | | DEPARTMENT | | | | | | OF | | | | | | PATHOLOGY | | + + + + + + | MCHC | 33.7 | 33.4 - 35.5 | [facility] | | | | | g/dL | DEPARTMENT | | | | | | OF | | | | | | PATHOLOGY | | + + + + + + | RDW | 14.7 | 11.5 - 15.0 % | [facility] | | | | | | DEPARTMENT | | | | | | OF | | | | | | PATHOLOGY | | + + + + + + | PLATELET | 532 (H) | 150 - 400 K/cu | [...] DEPARTMENT OF | [address] | [place] [address] | | | PATHOLOGY | [address] | | | + + + + + | [facility] DEPARTMENT OF | [address] | [place] [address] | | | PATHOLOGY | [address] | | | + + + + + COMP METABOLIC SET (07/03/2004 6:15 AM PDT) + +---------+ + + + | Component | Value | Ref Range | Performed | Pathologist | | | | | At | Signature | + +---------+ + + + | GLUCOSE, | 139 (H) | 65 - 110 mg/dL | [facility] | | | PLASMA | | | DEPARTMENT | | | (LAB) | | | OF | | | | | | PATHOLOGY | | + +---------+ + + + | BUN, PLASMA | 3 (L) | 6 - 20 mg/dL | [facility] | | | (LAB) | | | DEPARTMENT | | | | | | OF | | | | | | PATHOLOGY | | + +---------+ + + + | CREATININE | 0.6 | 0.6 - 1.1 mg/dL | [facility] | | | PLASMA | | | DEPARTMENT | | | (LAB) | | | OF | | | | | | PATHOLOGY | | + +---------+ + + + | TOTAL | 5.9 (L) | 6.1 - 7.9 g/dL | [facility] | | | PROTEIN, | | | DEPARTMENT | | | PLASMA | | | OF | | | (LAB) | | | PATHOLOGY | | + +---------+ + + + | ALBUMIN, | 2.3 (L) | 3.5 - 4.7 g/dL | [facility] | | | PLASMA | | | DEPARTMENT | | | (LAB) | | | OF | | | | | | PATHOLOGY | | + +---------+ + + + | CALCIUM, | 8.4 (L) | 8.5 - 10.5 | [facility] | | | PLASMA | | mg/dL | DEPARTMENT | | | (LAB) | | | OF | | | | | | PATHOLOGY | | + +---------+ + + + | BILIRUBIN | 0.5 | 0.3 - 1.2 mg/dL | [facility] | | | TOTAL | | | DEPARTMENT | | | | | | OF | | | | | | PATHOLOGY | | + +---------+ + + + | ALK PHOS | 112 (H) | 42 - 98 U/L | [facility] | | | | | | DEPARTMENT | | | | | | OF | | | | | | PATHOLOGY | | + +---------+ + + + | AST(SGOT) | 16 | 15 - 41 U/L | [facility] | | | | | | DEPARTMENT | | | | | | OF | | | | | | PATHOLOGY | | + +---------+ + + + | SODIUM, | 137 | 136 - 145 | [facility] | | | PLASMA | | mmol/L | DEPARTMENT | | | (LAB) | | | OF | | | | | | PATHOLOGY | | + +---------+ + + + | POTASSIUM, | 3.7 | 3.5 - 5.1 | [facility] | | | PLASMA | | mmol/L | DEPARTMENT | | | (LAB) | | | OF | | | | | | PATHOLOGY | | + +---------+ + + + | CHLORIDE, | 104 | 98 - 107 mmol/L | [facility] | | | PLASMA | | | DEPARTMENT | | | (LAB) | | | OF | | | | | | PATHOLOGY | | + +---------+ + + + | TOTAL CO2, | 28 | 23 - 29 mmol/L | [facility] | | | PLASMA | | | DEPARTMENT | | | (LAB) | | | OF | | | | | | PATHOLOGY | | + +---------+ + + + | ALT (SGPT) | 26 | 13 - 48 U/L | [facility] | | | | | [...] | + + + + + | [facility] | [address] | [place] [address] | | | PATHOLOGY | [address] | | | + + + + + | [facility] | [address] | [place] [address] | | | PATHOLOGY | [address] | | | + + + + + ELZA GARCIA (07/02/2004 6:40 PM PDT) + + + + + + | Component | Value | Ref Range | Performed | Pathologist | | | | | At | Signature | + + + + + + | SOURCE BODY | CVC Right IJ Catheter | | | | | SITE | Tip | | | | + + + + + + | CULTURE | Catheter Tip | | | | | RESULT | Culture | | | | | | Source...............: | | | | | | CVC Right IJ Catheter | | | | | | Tip Culture: | | | | | | > 15 colonies | | | | | | Coagulase negative | | | | | | Staph species | | | | | | Final ID | | | | | | Gram | | | | | | positive cocci | | | | | | | | | | | | Prelim ID | | | | | | Coagulase negative | | | | | | Staph species | | | | | | | | | | | | Staph neg Cefazolin | | | | | | R | | | | | | Clindamycin | | | | | | S Erythromycin | | | | | | R Oxacillin | | | | | | R Penicillin | | | | | | R Vancomycin | | | | | | S Final | | | | | | Report | | | | + + + + + + + + | Specimen | + + | | + + + + + + + | Performing | Address | City/State/Zipcode | Phone Number | | Organization | | | | + + + + + | [facility] | [address] | [place] [address] | | | LAB-MICRO | | | | + + + + + CHEST 1 VIEW (07/02/2004 1:47 PM PDT) + + + + + + | Component | Value | Ref Range | Performed | Pathologist | | | | | At | Signature | + + + + + + | CHEST, 1 | Radiologist 1: ASAEL, | | | | | VIEW | MARLA RoseEXAM: AP | | | | | | chest. COMPARISON: | | | | | | 07/01/04 INDICATION: | | | | | | Respiratory distress, | | | | | | recent ARDS/aspiration | | | | | | FINDINGS: The | | | | | | endotracheal tube and NG | | | | | | tube have been | | | | | | removed.Right internal | | | | | | jugular central line has | | | | | | been removed. | | | | | | Cardiacsilhouette is | | | | | | normal. Bibasilar | | | | | | areas of | | | | | | atelectasis/aspirationha | | | | | | ve improved. There is | | | | | | no pulmonary edema, | | | | | | pneumothorax orpleural | | | | | | effusions. Osseous | | | | | | structures are | | | | | | unremarkable. | | | | | | IMPRESSION: 1. Bibasilar | | | | | | areas of | | | | | | atelectasis/aspiration, | | | | | | improved from | | | | | | theprevious examination. | | | | | | | | | | + + + + + + + + | Specimen | + + | | + + + +---------+ + + | Performing | Address | City/State/Zipcode | Phone Number | | Organization | | | | + +---------+ + + | [facility] DEPARTMENT OF | | | | | RADIOLOGY | | | | + +---------+ + + COMP METABOLIC SET (07/02/2004 5:00 AM PDT) + +---------+ + + + | Component | Value | Ref Range | Performed | Pathologist | | | | | At | Signature | + +---------+ + + + | GLUCOSE, | 131 (H) | 65 - 110 mg/dL | [facility] | | | PLASMA | | | DEPARTMENT | | | (LAB) | | | OF | | | | | | PATHOLOGY | | + +---------+ + + + | BUN, PLASMA | 2 (L) | 6 - 20 mg/dL | [facility] | | | (LAB) | | | DEPARTMENT | | | | | | OF | | | | | | PATHOLOGY | | + +---------+ + + + | CREATININE | 0.7 | 0.6 - 1.1 mg/dL | [facility] | | | PLASMA | | | DEPARTMENT | | | (LAB) | | | OF | | | | | | PATHOLOGY | | + +---------+ + + + | TOTAL | 5.7 (L) | 6.1 - 7.9 g/dL | [facility] | | | PROTEIN, | | | DEPARTMENT | | | PLASMA | | | OF | | | (LAB) | | | PATHOLOGY | | + +---------+ + + + | ALBUMIN, | 2.1 (L) | 3.5 - 4.7 g/dL | [facility] | | | PLASMA | | | DEPARTMENT | | | (LAB) | | | OF | | | | | | PATHOLOGY | | + +---------+ + + + | CALCIUM, | 8.6 | 8.5 - 10.5 | [facility] | | | PLASMA | | mg/dL | DEPARTMENT | | | (LAB) | | | OF | | | | | | PATHOLOGY | | + +---------+ + + + | BILIRUBIN | 0.6 | 0.3 - 1.2 mg/dL | [facility] | | | TOTAL | | | DEPARTMENT | | | | | | OF | | | | | | PATHOLOGY | | + +---------+ + + + | ALK PHOS | 119 (H) | 42 - 98 U/L | [facility] | | | | | | DEPARTMENT | | | | | | OF | | | | | | PATHOLOGY | | + +---------+ + + + | AST(SGOT) | 17 | 15 - 41 U/L | [facility] | | | | | | DEPARTMENT | | | | | | OF | | | | | | PATHOLOGY | | + +---------+ + + + | SODIUM, | 143 | 136 - 145 | [facility] | | | PLASMA | | mmol/L | DEPARTMENT | | | (LAB) | | | OF | | | | | | PATHOLOGY | | + +---------+ + + + | POTASSIUM, | 3.8 | 3.5 - 5.1 | [facility] | | | PLASMA | | mmol/L | DEPARTMENT | | | (LAB) | | | OF | | | | | | PATHOLOGY | | + +---------+ + + + | CHLORIDE, | 101 | 98 - 107 mmol/L | [facility] | | | PLASMA | | | DEPARTMENT | | | (LAB) | | | OF | | | | | | PATHOLOGY | | + +---------+ + + + | TOTAL CO2, | 29 | 23 - 29 mmol/L | [facility] | | | PLASMA | | | DEPARTMENT | | | (LAB) | | | OF | | | | | | PATHOLOGY | | + +---------+ + + + | ALT (SGPT) | 28 | 13 - 48 U/L | [facility] | | | | | [...] | + + + + + | [facility] | [address] [address] | [place] [address] | | | PATHOLOGY | [address] | | | + + + + + | [facility] DEPARTMENT OF | [facility] [facility] | [place] [address] | | | PATHOLOGY | [address] | | | + + + + + DIFFERENTIAL (07/02/2004 3:00 AM PDT) + +---------+ + + + | Component | Value | Ref Range | Performed | Pathologist | | | | | At | Signature | + +---------+ + + + | NEUTROPHIL | 68 | 50 - 70 % | [facility] | | | % | | | DEPARTMENT | | | | | | OF | | | | | | PATHOLOGY | | + +---------+ + + + | LYMPHOCYTE | 12 (L) | 18 - 42 % | [facility] | | | % | | | DEPARTMENT | | | | | | OF | | | | | | PATHOLOGY | | + +---------+ + + + | MONOCYTE % | 4 | 2 - 8 % | [facility] | | | | | | DEPARTMENT | | | | | | OF | | | | | | PATHOLOGY | | + +---------+ + + + | EOS % | 3 | 1 - 3 % | [facility] | | | | | | DEPARTMENT | | | | | | OF | | | | | | PATHOLOGY | | + +---------+ + + + | BASO % | 0 | <3 % | [facility] | | | | | | DEPARTMENT | | | | | | OF | | | | | | PATHOLOGY | | + +---------+ + + + | NEUTROPHIL | 9.8 (H) | 1.8 - 7.7 K/cu | [facility] | | | # | | mm | DEPARTMENT | | | | | | OF | | | | | | PATHOLOGY | | + +---------+ + + + | LYMPHOCYTE | 1.7 | 1.0 - 4.8 K/cu | [facility] | | | # | | mm | DEPARTMENT | | | | | | OF | | | | | | PATHOLOGY | | + +---------+ + + + | MONOCYTE # | 0.6 | 0.1 - 0.6 K/cu | [facility] | | | | | mm | DEPARTMENT | | | | | | OF | | | | | | PATHOLOGY | | + +---------+ + + + | EOS # | 0.4 | <0.6 K/cu mm | [facility] | | | | | | DEPARTMENT | | | | | | OF | | | | | | PATHOLOGY | | + +---------+ + + + | BASO # | 0.0 | <0.3 | [facility] | | | | | | DEPARTMENT | | | | | | OF | | | | | | PATHOLOGY | | + +---------+ + + + + + | Specimen | + + | | + + + + + | Narrative | Performed At | + + + | * Corrected 07/02/04 04:47: WHITE CELL COUNT, BLOOD, prev report: | [facility] | | 15.3 * Corrected 07/02/04 04:47: UDAY RAMOS, prev report: Slide | DEPARTMENT OF | | review pending. | PATHOLOGY | + + + + + + + + | Performing | Address | City/State/Zipcode | Phone Number | | Organization | | | | + + + + + | [facility] DEPARTMENT OF | [address] | [place] [address] | | | PATHOLOGY | [address] | | | + + + + + | [facility] DEPARTMENT OF | [address] | [place] [address] | | | PATHOLOGY | [address] | | | + + + + + CBC, WITH DIFFERENTIAL (07/02/2004 3:00 AM PDT) + + + + + + | Component | Value | Ref Range | Performed | Pathologist | | | | | At | Signature | + + + + + + | WHITE CELL | 14.4 (H) | 4.4 - 11.0 K/cu | [facility] | | | COUNT | | mm | DEPARTMENT | | | | | | OF | | | | | | PATHOLOGY | | + + + + + + | RED CELL | 3.71 | 3.65 - 5.10 | [facility] | | | COUNT | | M/cu mm | DEPARTMENT | | | | | | OF | | | | | | PATHOLOGY | | + + + + + + | HEMOGLOBIN | 11.0 (L) | 11.4 - 15.0 | [facility] | | | | | g/dL | DEPARTMENT | | | | | | OF | | | | | | PATHOLOGY | | + + + + + + | HEMATOCRIT | 33.0 | 33.0 - 44.6 % | [facility] | | | | | | DEPARTMENT | | | | | | OF | | | | | | PATHOLOGY | | + + + + + + | MCV | 88.8 | 80.0 - 96.0 fL | [facility] | | | | | | DEPARTMENT | | | | | | OF | | | | | | PATHOLOGY | | + + + + + + | MCHC | 33.3 (L) | 33.4 - 35.5 | [facility] | | | | | g/dL | DEPARTMENT | | | | | | OF | | | | | | PATHOLOGY | | + + + + + + | RDW | 14.6 | 11.5 - 15.0 % | [facility] | | | | | | DEPARTMENT | | | | | | OF | | | | | | PATHOLOGY | | + + + + + + | PLATELET | 468 (H) | 150 - 400 K/cu | [facility] | | | COUNT | | mm | DEPARTMENT | | | | | | OF | | | | | | PATHOLOGY | | + + + + + + | DIFF | Final Manual | | [facility] | | | COMMENTS | Differential Report. | | DEPARTMENT | | | | | | OF | | | | | | PATHOLOGY | | + + + + + + | CBC | WBC count adjusted for | | [facility] | | | COMMENTS | NRBC'sFinal WBC Report. | | DEPARTMENT | | | | | | OF | | | | | | PATHOLOGY | | + + + + + + + + | Specimen | + + | | + + + + + | Narrative | Performed At | + + + | * Corrected 07/02/04 04:47: WHITE CELL COUNT, BLOOD, prev report: | [facility] | | 15.3 * Corrected 07/02/04 04:47: UDAY COMMENTS, prev report: Slide | DEPARTMENT OF | | review pending. | PATHOLOGY | + + + + + + + + | Performing | Address | City/State/Zipcode | Phone Number | | Organization | | | | + + + + + | [facility] | [address] [address] | [place] [address] | | | PATHOLOGY | [address] | | | + + + + + | [facility] | [address] [place] [address] | [place] [address] | | | PATHOLOGY | [address] | | | + + + + + MANUAL DIFFERENTIAL (07/02/2004 3:00 AM PDT) + +--------+ + + + | Component | Value | Ref Range | Performed | Pathologist | | | | | At | Signature | + +--------+ + + + | PLATELET | Normal | | [facility] | | | ESTIMATE | | | DEPARTMENT | | | | | | OF | | | | | | PATHOLOGY | | + +--------+ + + + + + | Specimen | + + | | + + + + + | Narrative | Performed At | + + + | * Corrected 07/02/04 04:47: WHITE CELL COUNT, BLOOD, prev report: | [facility] | | 15.3 * Corrected 07/02/04 04:47: UDAY COMMENTS, prev report: Slide | DEPARTMENT OF | | review pending. | PATHOLOGY | + + + + + + + + | Performing | Address | City/State/Zipcode | Phone Number | | Organization | | | | + + + + + | [facility] DEPARTMENT | [address] [place] [address] [address] | [place] [address] | | | PATHOLOGY | [address] | | | + + + + + | [facility] DEPARTMENT OF | [address] [place] [address] [address] | [place] [address] | | | PATHOLOGY | [address] | | | + + + + + EXTENDED DIFF (07/02/2004 3:00 AM PDT) + +-------+ + + + | Component | Value | Ref Range | Performed | Pathologist | | | | | At | Signature | + +-------+ + + + | METAMYELOCY | 4 | % | [facility] | | | ANITA % | | | DEPARTMENT | | | | | | OF | | | | | | PATHOLOGY | | + +-------+ + + + | MYELOCYTES | 4 | % | [facility] | | | % | | | DEPARTMENT | | | | | | OF | | | | | | PATHOLOGY | | + +-------+ + + + | NRBC | 6 (H) | <1 /100 WBC | [facility] | | | | | | DEPARTMENT | | | | | | OF | | | | | | PATHOLOGY | | + +-------+ + + + | BANDS # | 0.7 | 0.0 - 1.1 | [facility] | | | | | | DEPARTMENT | | | | | | OF | | | | | | PATHOLOGY | | + +-------+ + + + | BANDS % | 5 | <11 % | [facility] | | | | | | DEPARTMENT | | | | | | OF | | | | | | PATHOLOGY | | + +-------+ + + + | ATYPICAL | 0 | | [facility] | | | CELL % | | | DEPARTMENT | | | | | | OF | | | | | | PATHOLOGY | | + +-------+ + + + | PROMYELOCYT | 0 | % | [facility] | | | ES % | | | DEPARTMENT | | | | | | OF | | | | | | PATHOLOGY | | + +-------+ + + + + + | Specimen | + + | | + + + + + | Narrative | Performed At | + + + | * Corrected 07/02/04 04:47: WHITE CELL COUNT, BLOOD, prev report: | [facility] | | 15.3 * Corrected 07/02/04 04:47: UDAY COMMENTS, prev report: Slide | DEPARTMENT OF | | review pending. | PATHOLOGY | + + + + + + + + | Performing | Address | City/State/Zipcode | Phone Number | | Organization | | | | + + + + + | [facility] DEPARTMENT OF | [address] | [place] [address] | | | PATHOLOGY | [address] | | | + + + + + | [facility] DEPARTMENT OF | [address] | [place] [address] | | | PATHOLOGY | [address] | | | + + + + + PROTHROMBIN TIME (07/02/2004 3:00 AM PDT) + + + + + + | Component | Value | Ref Range | Performed | Pathologist | | | | | At | Signature | + + + + + + | INR | 1.09Comment: | 0.90 - 1.20 INR | [facility] | | | | PT INR Therapeutic | | DEPARTMENT | | | | ranges for full | | OF | | | | anticoagulation: | | PATHOLOGY | | | | INR for | | | | | | Venous Thromboembolism | | | | | | | | | | | | (2.0-3.0)INR | | | | | | INR for most | | | | | | patients with mech. | | | | | | valves (2.5-3.5)INR | | | | + + + + + + + + | Specimen | + + | | + + + + + + + | Performing | Address | City/State/Zipcode | Phone Number | | Organization | | | | + + + + + | [facility] | [address] | [place] [address] | | | PATHOLOGY | [address] | | | + + + + + | [facility] | [address] | [place] [address] | | | PATHOLOGY | [address] | | | + + + + + COMP METABOLIC SET (07/02/2004 3:00 AM PDT) + +---------+ + + + | Component | Value | Ref Range | Performed | Pathologist | | | | | At | Signature | + +---------+ + + + | GLUCOSE, | 145 (H) | 65 - 110 mg/dL | [facility] | | | PLASMA | | | DEPARTMENT | | | (LAB) | | | OF | | | | | | PATHOLOGY | | + +---------+ + + + | BUN, PLASMA | 4 (L) | 6 - 20 mg/dL | [facility] | | | (LAB) | | | DEPARTMENT | | | | | | OF | | | | | | PATHOLOGY | | + +---------+ + + + | CREATININE | 0.7 | 0.6 - 1.1 mg/dL | [facility] | | | PLASMA | | | DEPARTMENT | | | (LAB) | | | OF | | | | | | PATHOLOGY | | + +---------+ + + + | TOTAL | 5.9 (L) | 6.1 - 7.9 g/dL | [facility] | | | PROTEIN, | | | DEPARTMENT | | | PLASMA | | | OF | | | (LAB) | | | PATHOLOGY | | + +---------+ + + + | ALBUMIN, | 2.1 (L) | 3.5 - 4.7 g/dL | [facility] | | | PLASMA | | | DEPARTMENT | | | (LAB) | | | OF | | | | | | PATHOLOGY | | + +---------+ + + + | CALCIUM, | 8.4 (L) | 8.5 - 10.5 | [facility] | | | PLASMA | | mg/dL | DEPARTMENT | | | (LAB) | | | OF | | | | | | PATHOLOGY | | + +---------+ + + + | BILIRUBIN | 0.6 | 0.3 - 1.2 mg/dL | [facility] | | | TOTAL | | | DEPARTMENT | | | | | | OF | | | | | | PATHOLOGY | | + +---------+ + + + | ALK PHOS | 122 (H) | 42 - 98 U/L | [facility] | | | | | | DEPARTMENT | | | | | | OF | | | | | | PATHOLOGY | | + +---------+ + + + | AST(SGOT) | 22 | 15 - 41 U/L | [facility] | | | | | | DEPARTMENT | | | | | | OF | | | | | | PATHOLOGY | | + +---------+ + + + | SODIUM, | 140 | 136 - 145 | [facility] | | | PLASMA | | mmol/L | DEPARTMENT | | | (LAB) | | | OF | | | | | | PATHOLOGY | | + +---------+ + + + | POTASSIUM, | 4.0 | 3.5 - 5.1 | [facility] | | | PLASMA | | mmol/L | DEPARTMENT | | | (LAB) | | | OF | | | | | | PATHOLOGY | | + +---------+ + + + | CHLORIDE, | 104 | 98 - 107 mmol/L | [facility] | | | PLASMA | | | DEPARTMENT | | | (LAB) | | | OF | | | | | | PATHOLOGY | | + +---------+ + + + | TOTAL CO2, | 27 | 23 - 29 mmol/L | [facility] | | | PLASMA | | | DEPARTMENT | | | (LAB) | | | OF | | | | | | PATHOLOGY | | + +---------+ + + + | ALT (SGPT) | 25 | 13 - 48 U/L | [facility] | | | | | | DEPARTMENT | | | | | | OF | | | | | | PATHOLOGY | | + +---------+ + + + | AST CMNT | SL HEMO | | [facility] | | | | | | DEPARTMENT | | | | | | OF | | | | | | PATHOLOGY | | + +---------+ + + + + + | Specimen | + + | | + + + + + | Narrative | Performed At | + + + | Sample hemolyzed. Results for K, Total Bili., Direct Bili., AST, LD, | [facility] | | or HDL may be inaccurate. Refer to comment under test result. | DEPARTMENT OF | | | PATHOLOGY | + + + + + + + + | Performing | Address | City/State/Zipcode | Phone Number | | Organization | | | | + + + + + | [facility] | [address] [address] | [place] [address] | | | PATHOLOGY | [address] | | | + + + + + | [facility] | [address] | [place] [address] | | | PATHOLOGY | [address] | | | + + + + + MAGNESIUM, PLASMA (07/02/2004 3:00 AM PDT) + +-------+ + + + | Component | Value | Ref Range | Performed | Pathologist | | | | | At | Signature | + +-------+ + + + | MAGNESIUM,P | 2.2 | 1.8 - 2.5 mg/dL | [facility] | | | LASMA | | | DEPARTMENT | | | | | | OF | | | | | | PATHOLOGY | | + +-------+ + + + + + | Specimen | + + | | + + + + + | Narrative | Performed At | + + + | Sample hemolyzed. Results for K, Total Bili., Direct Bili., AST, LD, | [facility] | | or HDL may be inaccurate. Refer to comment under test result. | DEPARTMENT OF | | | PATHOLOGY | + + + + + + + + | Performing | Address | City/State/Zipcode | Phone Number | | Organization | | | | + + + + + | [facility] | [address] | [place] [address] | | | PATHOLOGY | [address] | | | + + + + + | [facility] | [address] [place] [address] | [place] [address] | | | PATHOLOGY | [address] | | | + + + + + PHOSPHORUS, PLASMA (07/02/2004 3:00 AM PDT) + +---------+ + + + | Component | Value | Ref Range | Performed | Pathologist | | | | | At | Signature | + +---------+ + + + | PHOSPHORUS, | 5.7 (H) | 2.4 - 4.7 mg/dL | [facility] | | | PLASMA | | | DEPARTMENT | | | (LAB) | | | OF | | | | | | PATHOLOGY | | + +---------+ + + + + + | Specimen | + + | | + + + + + | Narrative | Performed At | + + + | Sample hemolyzed. Results for K, Total Bili., Direct Bili., AST, LD, | [facility] | | or HDL may be inaccurate. Refer to comment under test result. | DEPARTMENT OF | | | PATHOLOGY | + + + + + + + + | Performing | Address | City/State/Zipcode | Phone Number | | Organization | | | | + + + + + | [facility] DEPARTMENT OF | [facility] | [place] [address] | | | PATHOLOGY | [address] | | | + + + + + | [facility] | [address] | [place] [address] | | | PATHOLOGY | [address] | | | + + + + + CT PELVIS W CONTRAST (07/01/2004 3:40 PM PDT) + + + + + + | Component | Value | Ref Range | Performed | Pathologist | | | | | At | Signature | + + + + + + | CT PELVIS W | Radiologist 1: BRIDGER, | | | | | CONTRAST | DEIDRE, MDCT abdomen and | | | | | | pelvis with oral and 140 | | | | | | cc intravenous | | | | | | omnipaque. Comparison: | | | | | | None. Findings: ABDOMEN: | | | | | | Diffuse ground glass | | | | | | opacities are noted at | | | | | | the lungbases with trace | | | | | | bilateral effusions, in | | | | | | keeping | | | | | | withnoncardiogenic | | | | | | edema-ARDS. Liver, | | | | | | biliary system, | | | | | | pancreas,spleen, adrenal | | | | | | glands, and kidneys are | | | | | | normal. A bladder | | | | | | issurgically absent. | | | | | | Enteric tube is | | | | | | present with tip in | | | | | | theduodenal bulb. | | | | | | PELVIS: There are | | | | | | postsurgical changes | | | | | | following infra | | | | | | umbilicalmidline | | | | | | laparotomy for | | | | | | hysterectomy and | | | | | | bilateral | | | | | | salpingooophorectomy. | | | | | | Small bowel loops are | | | | | | seen herniating into | | | | | | theventral incision in | | | | | | keeping with fascial | | | | | | defect-hernia. There | | | | | | isno abdominal or pelvic | | | | | | fluid collection to | | | | | | suggest | | | | | | developingabscess. | | | | | | Suprapubic catheter is | | | | | | noted in the bladder. | | | | | | There is nobowel | | | | | | obstruction. Contrast | | | | | | reaches the rectum. | | | | | | There is nofocal bone | | | | | | destruction. CONCLUSION: | | | | | | 1. No abdominal or | | | | | | pelvic abscess status | | | | | | post hysterectomy | | | | | | andbilateral salpingo | | | | | | oophorectomy. 2. | | | | | | Ventral infra | | | | | | umbilical incisional | | | | | | hernia containing | | | | | | herniatedloops of small | | | | | | bowel without | | | | | | obstruction. 3. | | | | | | Noncardiogenic | | | | | | edema-ARDS. | | | | + + + + + + + + | Specimen | + + | | + + + +---------+ + + | Performing | Address | City[facility] | Phone Number | | Organization | | | | + +---------+ + + | [facility] DEPARTMENT OF | | | | | RADIOLOGY | | | | + +---------+ + + CT ABDOMEN W CONTRAST (07/01/2004 3:40 PM PDT) + + + + + + | Component | Value | Ref Range | Performed | Pathologist | | | | | At | Signature | + + + + + + | CT ABDOMEN | Radiologist 1: BRIDGER, | | | | | W CONTRAST | DEIDRE, MDCT abdomen and | | | | | | pelvis with oral and 140 | | | | | | cc intravenous | | | | | | omnipaque. Comparison: | | | | | | None. Findings: ABDOMEN: | | | | | | Diffuse ground glass | | | | | | opacities are noted at | | | | | | the lungbases with trace | | | | | | bilateral effusions, in | | | | | | keeping | | | | | | withnoncardiogenic | | | | | | edema-ARDS. Liver, | | | | | | biliary system, | | | | | | pancreas,spleen, adrenal | | | | | | glands, and kidneys are | | | | | | normal. A bladder | | | | | | issurgically absent. | | | | | | Enteric tube is | | | | | | present with tip in | | | | | | theduodenal bulb. | | | | | | PELVIS: There are | | | | | | postsurgical changes | | | | | | following infra | | | | | | umbilicalmidline | | | | | | laparotomy for | | | | | | hysterectomy and | | | | | | bilateral | | | | | | salpingooophorectomy. | | | | | | Small bowel loops are | | | | | | seen herniating into | | | | | | theventral incision in | | | | | | keeping with fascial | | | | | | defect-hernia. There | | | | | | isno abdominal or pelvic | | | | | | fluid collection to | | | | | | suggest | | | | | | developingabscess. | | | | | | Suprapubic catheter is | | | | | | noted in the bladder. | | | | | | There is nobowel | | | | | | obstruction. Contrast | | | | | | reaches the rectum. | | | | | | There is nofocal bone | | | | | | destruction. CONCLUSION: | | | | | | 1. No abdominal or | | | | | | pelvic abscess status | | | | | | post hysterectomy | | | | | | andbilateral salpingo | | | | | | oophorectomy. 2. | | | | | | Ventral infra | | | | | | umbilical incisional | | | | | | hernia containing | | | | | | herniatedloops of small | | | | | | bowel without | | | | | | obstruction. 3. | | | | | | Noncardiogenic | | | | | | edema-ARDS. | | | | + + + + + + + + | Specimen | + + | | + + + +---------+ + + | Performing | Address | City/State/Zipcode | Phone Number | | Organization | | | | + +---------+ + + | [facility] DEPARTMENT OF | | | | | RADIOLOGY | | | | + +---------+ + + POTASSIUM, PLASMA (07/01/2004 1:00 PM PDT) + +-------+ + + + | Component | Value | Ref Range | Performed | Pathologist | | | | | At | Signature | + +-------+ + + + | POTASSIUM, | 3.9 | 3.5 - 5.1 | [facility] | | | PLASMA | | mmol/L | DEPARTMENT | | | (LAB) | | | OF | | | | | | PATHOLOGY | | + +-------+ + + + + + | Specimen | + + | | + + + + + + + | Performing | Address | City/State/Zipcode | Phone Number | | Organization | | | | + + + + + | [facility] DEPARTMENT OF | [address] | [place] [address] | | | PATHOLOGY | [address] | | | + + + + + | [facility] DEPARTMENT OF | [address] | [place] [address] | | | PATHOLOGY | [address] | | | + + + + + BLOOD GASES, ARTERIAL (07/01/2004 8:20 AM PDT) + +-------+ + + + | Component | Value | Ref Range | Performed | Pathologist | | | | | At | Signature | + +-------+ + + + | PAT TEMP | 37.2 | Degree C | [facility] | | | ARTERIAL | | | DEPARTMENT | | | | | | OF | | | | | | PATHOLOGY | | + +-------+ + + + | FIO2 | .30 | | [facility] | | | ARTERIAL | | | DEPARTMENT | | | | | | OF | | | | | | PATHOLOGY | | + +-------+ + + + | PH ARTERIAL | 7.43 | 7.37 - 7.44 | [facility] | | | | | | DEPARTMENT | | | | | | OF | | | | | | PATHOLOGY | | + +-------+ + + + | PCO2 | 39 | 32 - 43 mmHg | [facility] | | | ARTERIAL | | | DEPARTMENT | | | | | | OF | | | | | | PATHOLOGY | | + +-------+ + + + | PO2 | 93 | 72 - 104 mmHg | [facility] | | | ARTERIAL | | | DEPARTMENT | | | | | | OF | | | | | | PATHOLOGY | | + +-------+ + + + | BASE EXCESS | 1.9 | | [facility] | | | ARTERIAL | | | DEPARTMENT | | | | | | OF | | | | | | PATHOLOGY | | + +-------+ + + + | HCO3 | 26 | 21 - 27 mmol/L | [facility] | | | ARTERIAL | | | DEPARTMENT | | | | | | OF | | | | | | PATHOLOGY | | + +-------+ + + + | TOTAL CO2 | 27 | 22 - 28 mmol/L | [facility] | | | ARTERIAL | | | DEPARTMENT | | | | | | OF | | | | | | PATHOLOGY | | + +-------+ + + + | O2 SAT, | 97.3 | 92.0 - 98.0 % | [facility] | | | ARTERIAL | | | DEPARTMENT | | | | | | OF | | | | | | PATHOLOGY | | + +-------+ + + + + + | Specimen | + + | | + + + + + | Narrative | Performed At | + + + | Arterial Blood Gas | [facility] | | | DEPARTMENT OF | | | PATHOLOGY | + + + + + + + + | Performing | Address | City/State/Zipcode | Phone Number | | Organization | | | | + + + + + | [facility] | [address] | [place] [address] | | | PATHOLOGY | [address] | | | + + + + + | [facility] | [address] | [place] [address] | | | PATHOLOGY | [address] | | | + + + + + CHEST 1 VIEW (07/01/2004 7:04 AM PDT) + + + + + + | Component | Value | Ref Range | Performed | Pathologist | | | | | At | Signature | + + + + + + | CHEST, 1 | Radiologist 1: ASAEL | | | | | IZABEL | MARLA RoseEXAM: AP | | | | | | chest. COMPARISON: | | | | | | 06/30/04 INDICATION: | | | | | | Respiratory failure | | | | | | FINDINGS: Position of | | | | | | the tubes and lines are | | | | | | unchanged.Cardiac | | | | | | silhouette is normal. | | | | | | Bilateral dependent | | | | | | areas ofaspiration | | | | | | pneumonitis/resolving | | | | | | ARDS have improved. | | | | | | Smallbilateral | | | | | | effusions are present. | | | | | | There is no | | | | | | pneumothorax. | | | | | | IMPRESSION: 1. Findings | | | | | | consistent with | | | | | | resolving ARDS/mild | | | | | | aspiration. | | | | + + + + + + + + | Specimen | + + | | + + + +---------+ + + | Performing | Address | City/State/Zipcode | Phone Number | | Organization | | | | + +---------+ + + | [facility] DEPARTMENT OF | | | | | RADIOLOGY | | | | + +---------+ + + DIFFERENTIAL (07/01/2004 3:00 AM PDT) + +---------+ + + + | Component | Value | Ref Range | Performed | Pathologist | | | | | At | Signature | + +---------+ + + + | NEUTROPHIL | 65 | 50 - 70 % | [facility] | | | % | | | DEPARTMENT | | | | | | OF | | | | | | PATHOLOGY | | + +---------+ + + + | LYMPHOCYTE | 25 | 18 - 42 % | [facility] | | | % | | | DEPARTMENT | | | | | | OF | | | | | | PATHOLOGY | | + +---------+ + + + | MONOCYTE % | 6 | 2 - 8 % | [facility] | | | | | | DEPARTMENT | | | | | | OF | | | | | | PATHOLOGY | | + +---------+ + + + | EOS % | 4 (H) | 1 - 3 % | [facility] | | | | | | DEPARTMENT | | | | | | OF | | | | | | PATHOLOGY | | + +---------+ + + + | BASO % | 0 | <3 % | [facility] | | | | | | DEPARTMENT | | | | | | OF | | | | | | PATHOLOGY | | + +---------+ + + + | NEUTROPHIL | 8.4 (H) | 1.8 - 7.7 K/cu | [facility] | | | # | | mm | DEPARTMENT | | | | | | OF | | | | | | PATHOLOGY | | + +---------+ + + + | LYMPHOCYTE | 3.2 | 1.0 - 4.8 K/cu | [facility] | | | # | | mm | DEPARTMENT | | | | | | OF | | | | | | PATHOLOGY | | + +---------+ + + + | MONOCYTE # | 0.8 (H) | 0.1 - 0.6 K/cu | [facility] | | | | | mm | DEPARTMENT | | | | | | OF | | | | | | PATHOLOGY | | + +---------+ + + + | EOS # | 0.5 | <0.6 K/cu mm | [facility] | | | | | | DEPARTMENT | | | | | | OF | | | | | | PATHOLOGY | | + +---------+ + + + | BASO # | 0.0 | <0.3 | [facility] | | | | | [...] | + + + + + | [facility] | [address] | [place] [address] | | | PATHOLOGY | [address] | | | + + + + + | [facility] | [facility] [address] | [place] [address] | | | PATHOLOGY | [address] | | | + + + + + CBC, WITH DIFFERENTIAL (07/01/2004 3:00 AM PDT) + + + + + + | Component | Value | Ref Range | Performed | Pathologist | | | | | At | Signature | + + + + + + | WHITE CELL | 12.9 (H) | 4.4 - 11.0 K/cu | [facility] | | | COUNT | | mm | DEPARTMENT | | | | | | OF | | | | | | PATHOLOGY | | + + + + + + | RED CELL | 3.46 (L) | 3.65 - 5.10 | [facility] | | | COUNT | | M/cu mm | DEPARTMENT | | | | | | OF | | | | | | PATHOLOGY | | + + + + + + | HEMOGLOBIN | 10.1 (L) | 11.4 - 15.0 | [facility] | | | | | g/dL | DEPARTMENT | | | | | | OF | | | | | | PATHOLOGY | | + + + + + + | HEMATOCRIT | 30.7 (L) | 33.0 - 44.6 % | [facility] | | | | | | DEPARTMENT | | | | | | OF | | | | | | PATHOLOGY | | + + + + + + | MCV | 88.6 | 80.0 - 96.0 fL | [facility] | | | | | | DEPARTMENT | | | | | | OF | | | | | | PATHOLOGY | | + + + + + + | MCHC | 33.1 (L) | 33.4 - 35.5 | [facility] | | | | | g/dL | DEPARTMENT | | | | | | OF | | | | | | PATHOLOGY | | + + + + + + | RDW | 14.6 | 11.5 - 15.0 % | [facility] | | | | | | DEPARTMENT | | | | | | OF | | | | | | PATHOLOGY | | + + + + + + | PLATELET | 391 | 150 - 400 K/cu | [facility] [...] | + + + + + | [facility] DEPARTMENT | [address] | [place] [address] | | | PATHOLOGY | [address] | | | + + + + + | [facility] DEPARTMENT | [facility] | [place] [address] | | | PATHOLOGY | [address] | | | + + + + + CALCIUM, IONIZED, WHOLE BLOOD (07/01/2004 3:00 AM PDT) + + + + + + | Component | Value | Ref Range | Performed | Pathologist | | | | | At | Signature | + + + + + + | KYLIE ICA, | 1.13 (L) | 1.14 - 1.32 | [facility] | | | WHOLE BLD | | mmol/L | DEPARTMENT | | | | | | OF | | | | | | PATHOLOGY | | + + + + + + | PH, WHOLE | 7.43 | | [facility] | | | BLOOD | | | DEPARTMENT | | | | | | OF | | | | | | PATHOLOGY | | + + + + + + | CALC ICA, | 1.15 | 1.14 - 1.28 | [facility] | | | WHOLE BLD | | mmol/L | DEPARTMENT | | | | | | OF | | | | | | PATHOLOGY | | + + + + + + + + | Specimen | + + | | + + + + + | Narrative | Performed At | + + + | Ionized Calcium, Whole Blood | [facility] | | | DEPARTMENT OF | | | PATHOLOGY | + + + + + + + + | Performing | Address | City/State/Zipcode | Phone Number | | Organization | | | | + + + + + | [facility] DEPARTMENT OF | [address] | [place] [address] | | | PATHOLOGY | [address] | | | + + + + + | [facility] DEPARTMENT OF | [address] | [place] [address] | | | PATHOLOGY | [address] | | | + + + + + BASIC METABOLIC SET (07/01/2004 3:00 AM PDT) + +---------+ + + + | Component | Value | Ref Range | Performed | Pathologist | | | | | At | Signature | + +---------+ + + + | GLUCOSE, | 88 | 65 - 110 mg/dL | [facility] | | | PLASMA | | | DEPARTMENT | | | (LAB) | | | OF | | | | | | PATHOLOGY | | + +---------+ + + + | BUN, PLASMA | 9 | 6 - 20 mg/dL | [facility] | | | (LAB) | | | DEPARTMENT | | | | | | OF | | | | | | PATHOLOGY | | + +---------+ + + + | CREATININE | 0.7 | 0.6 - 1.1 mg/dL | [facility] | | | PLASMA | | | DEPARTMENT | | | (LAB) | | | OF | | | | | | PATHOLOGY | | + +---------+ + + + | SODIUM, | 138 | 136 - 145 | [facility] | | | PLASMA | | mmol/L | DEPARTMENT | | | (LAB) | | | OF | | | | | | PATHOLOGY | | + +---------+ + + + | POTASSIUM, | 4.0 | 3.5 - 5.1 | [facility] | | | PLASMA | | mmol/L | DEPARTMENT | | | (LAB) | | | OF | | | | | | PATHOLOGY | | + +---------+ + + + | CHLORIDE, | 107 | 98 - 107 mmol/L | [facility] | | | PLASMA | | | DEPARTMENT | | | (LAB) | | | OF | | | | | | PATHOLOGY | | + +---------+ + + + | TOTAL CO2, | 26 | 23 - 29 mmol/L | [facility] | | | PLASMA | | | DEPARTMENT | | | (LAB) | | | OF | | | | | | PATHOLOGY | | + +---------+ + + + | CALCIUM, | 8.1 (L) | 8.5 - 10.5 | [facility] | | | PLASMA | [...] + | [facility] DEPARTMENT OF | [address] | [place] [address] | | | PATHOLOGY | [address] | | | + + + + + | [facility] DEPARTMENT OF | [address] | [place] [address] | | | PATHOLOGY | [address] | | | + + + + + MAGNESIUM, PLASMA (07/01/2004 3:00 AM PDT) + +-------+ + + + | Component | Value | Ref Range | Performed | Pathologist | | | | | At | Signature | + +-------+ + + + | MAGNESIUM,P | 2.2 | 1.8 - 2.5 mg/dL | [facility] | | | LASMA | | | DEPARTMENT | | | | | | OF | | | | | | PATHOLOGY | | + +-------+ + + + + + | Specimen | + + | | + + + + + + + | Performing | Address | City/State/Zipcode | Phone Number | | Organization | | | | + + + + + | [facility] DEPARTMENT OF | [facility] | [place] [address] | | | PATHOLOGY | [address] | | | + + + + + | [facility] DEPARTMENT OF | [facility] | [place] [address] | | | PATHOLOGY | [address] | | | + + + + + PHOSPHORUS, PLASMA (07/01/2004 3:00 AM PDT) + +-------+ + + + | Component | Value | Ref Range | Performed | Pathologist | | | | | At | Signature | + +-------+ + + + | PHOSPHORUS, | 3.3 | 2.4 - 4.7 mg/dL | [facility] | | | PLASMA | | | DEPARTMENT | | | (LAB) | | | OF | | | | | | PATHOLOGY | | + +-------+ + + + + + | Specimen | + + | | + + + + + + + | Performing | Address | City/State/Zipcode | Phone Number | | Organization | | | | + + + + + | [facility] DEPARTMENT OF | [address] | [place] [address] | | | PATHOLOGY | [address] | | | + + + + + | [facility] DEPARTMENT OF | [address] | [place] [address] | | | PATHOLOGY | [address] | | | + + + + + POTASSIUM, PLASMA (06/30/2004 10:00 PM PDT) + +-------+ + + + | Component | Value | Ref Range | Performed | Pathologist | | | | | At | Signature | + +-------+ + + + | POTASSIUM, | 3.6 | 3.5 - 5.1 | [facility] | | | PLASMA | | mmol/L | DEPARTMENT | | | (LAB) | | | OF | | | | | | PATHOLOGY | | + +-------+ + + + + + | Specimen | + + | | + + + + + + + | Performing | Address | City/State/Zipcode | Phone Number | | Organization | | | | + + + + + | [facility] DEPARTMENT OF | [facility] | [place] [address] | | | PATHOLOGY | [address] | | | + + + + + | [facility] DEPARTMENT OF | [facility] | [place] [address] | | | PATHOLOGY | [address] | | | + + + + + CULT, BLOOD BACTI & SHARI (06/30/2004 8:50 PM PDT) + + + + + + | Component | Value | Ref Range | Performed | Pathologist | | | | | At | Signature | + + + + + + | SOURCE BODY | James Left Wrist | | | | | SITE | | | | | + + + + + + | CULTURE | Blood Culture | | | | | RESULT | | | | | | | Source.................. | | | | | | : A Line Left Wrist | | | | | | Preliminary | | | | | | Report......: Blood | | | | | | Culture Received. No | | | | | | Growth to Date. | | | | | | Culture | | | | | | Report............: | | | | | | Final Report: No | | | | | | Bacteria or Yeast | | | | | | | | | | | | | | | | | | isolated at 5 days. | | | | + + + + + + + + | Specimen | + + | | + + + + + + + | Performing | Address | City/State/Zipcode | Phone Number | | Organization | | | | + + + + + | [facility] | [address] | [place] [address] | | | LAB-MICRO | | | | + + + + + CULTURE, SPUTUM (06/30/2004 8:50 PM PDT) + + + + + + | Component | Value | Ref Range | Performed | Pathologist | | | | | At | Signature | + + + + + + | SOURCE BODY | Endotracheal Aspirate | | | | | SITE | | | | | + + + + + + | CULTURE | Sputum Culture | | | | | RESULT | | | | | | | Source...............: | | | | | | Endotracheal Aspirate | | | | | | RLB Gram | | | | | | Stain...........: | | | | | | Moderate PMN's | | | | | | | | | | | | Few Squamous | | | | | | epithelial cells | | | | | | | | | | | | No organisms | | | | | | seen. Culture: | | | | | | 1+ Oral gume | | | | | | | | | | | | | | | | | | Final ID | | | | | | Oral gume | | | | | | | | | | | | | | | | | | Prelim ID Final | | | | | | Report | | | | + + + + + + + + | Specimen | + + | | + + + + + + + | Performing | Address | City/State/Zipcode | Phone Number | | Organization | | | | + + + + + | [facility] | [address] | [place] [address] | | | LAB-MICRO | | | | + + + + + CULT, URINE BACTI (06/30/2004 8:30 PM PDT) + + + + + + | Component | Value | Ref Range | Performed | Pathologist | | | | | At | Signature | + + + + + + | SOURCE BODY | Retention Cath | | | | | SITE | | | | | + + + + + + | CULTURE | Urine Culture | | | | | RESULT | | | | | | | Source...............: | | | | | | Retention Cath | | | | | | Culture: Approx | | | | | | 75,000 col/ml Gill | | | | | | albicans | | | | | | Final ID | | | | | | | | | | | | Yeast | | | | | | | | | | | | Prelim ID Final | | | | | | Report | | | | + + + + + + + + | Specimen | + + | | + + + + + + + | Performing | Address | City/State/Zipcode | Phone Number | | Organization | | | | + + + + + | [facility] | [address] | [place] [address] | | | LAB-MICRO | | | | + + + + + CULT, BLOOD MAGI & SHARI (06/30/2004 8:25 PM PDT) + + + + + + | Component | Value | Ref Range | Performed | Pathologist | | | | | At | Signature | + + + + + + | SOURCE BODY | Right IJ IV Site | | | | | SITE | | | | | + + + + + + | CULTURE | Blood Culture | | | | | RESULT | | | | | | | Source.................. | | | | | | : Right IJ IV Site | | | | | | Preliminary | | | | | | Report......: Blood | | | | | | Culture Received. No | | | | | | Growth to Date. | | | | | | Culture | | | | | | Report............: | | | | | | Final Report: No | | | | | | Bacteria or Yeast | | | | | | | | | | | | | | | | | | isolated at 5 days. | | | | + + + + + + + + | Specimen | + + | | + + + + + + + | Performing | Address | City/State/Zipcode | Phone Number | | Organization | | | | + + + + + | [facility] | [address] | [place] [address] | | | LAB-MICRO | | | | + + + + + POTASSIUM, PLASMA (06/30/2004 12:20 PM PDT) + +---------+ + + + | Component | Value | Ref Range | Performed | Pathologist | | | | | At | Signature | + +---------+ + + + | POTASSIUM, | 3.4 (L) | 3.5 - 5.1 | [facility] | | | PLASMA | [...] | + + + + + | [facility] | [address] | [place] [address] | | | PATHOLOGY | [address] | | | + + + + + | [facility] | [address] | [place] [address] | | | PATHOLOGY | [address] | | | + + + + + MAGNESIUM, PLASMA (06/30/2004 12:20 PM PDT) + +-------+ + + + | Component | Value | Ref Range | Performed | Pathologist | | | | | At | Signature | + +-------+ + + + | MAGNESIUM,P | 2.2 | 1.8 - 2.5 mg/dL | [facility] | | | LASMA | | | DEPARTMENT | | | | | | OF | | | | | | PATHOLOGY | | + +-------+ + + + + + | Specimen | + + | | + + + + + + + | Performing | Address | City/State/Zipcode | Phone Number | | Organization | | | | + + + + + | [facility] DEPARTMENT OF | [address] | [place] [address] | | | PATHOLOGY | [address] | | | + + + + + | [facility] DEPARTMENT OF | [address] | [place] [address] | | | PATHOLOGY | [address] | | | + + + + + CHEST 1 VIEW (06/30/2004 4:45 AM PDT) + + + + + + | Component | Value | Ref Range | Performed | Pathologist | | | | | At | Signature | + + + + + + | CHEST, 1 | Radiologist 1: ASAEL, | | | | | IZABEL | MARLA RoseEXAM: AP | | | | | | chest. COMPARISON: | | | | | | 06/29/04 INDICATION: | | | | | | Respiratory failure | | | | | | FINDINGS: The | | | | | | position of the | | | | | | patient's tubes and | | | | | | lines areunchanged. | | | | | | The ground glass | | | | | | opacities bilaterally | | | | | | slightlyimproved, | | | | | | although the patient has | | | | | | developed | | | | | | increasingatelectasis | | | | | | within the lower lobes. | | | | | | Mild superimposed | | | | | | aspirationpneumonitis | | | | | | remains a possibility. | | | | | | Small bilateral | | | | | | effusions arepresent. | | | | | | There is no | | | | | | pneumothorax. | | | | | | IMPRESSION: 1. | | | | | | Improvement in the | | | | | | patient's noncardiogenic | | | | | | pulmonary edemawith | | | | | | mild worsening bibasilar | | | | | | atelectasis. | | | | | | Differential as above. | | | | | | | | | | + + + + + + + + | Specimen | + + | | + + + + + | Narrative | Performed At | + + + | Ordered by JOAQUIN BOURGEOIS | | + + + + +---------+ + + | Performing | Address | City/State/Zipcode | Phone Number | | Organization | | | | + +---------+ + + | [facility] DEPARTMENT OF | | | | | RADIOLOGY | | | | + +---------+ + + DIFFERENTIAL (06/30/2004 4:10 AM PDT) + +---------+ + + + | Component | Value | Ref Range | Performed | Pathologist | | | | | At | Signature | + +---------+ + + + | NEUTROPHIL | 75 (H) | 50 - 70 % | [facility] | | | % | | | DEPARTMENT | | | | | | OF | | | | | | PATHOLOGY | | + +---------+ + + + | LYMPHOCYTE | 18 | 18 - 42 % | [facility] | | | % | | | DEPARTMENT | | | | | | OF | | | | | | PATHOLOGY | | + +---------+ + + + | MONOCYTE % | 6 | 2 - 8 % | [facility] | | | | | | DEPARTMENT | | | | | | OF | | | | | | PATHOLOGY | | + +---------+ + + + | EOS % | 1 | 1 - 3 % | [facility] | | | | | | DEPARTMENT | | | | | | OF | | | | | | PATHOLOGY | | + +---------+ + + + | BASO % | 0 | <3 % | [facility] | | | | | | DEPARTMENT | | | | | | OF | | | | | | PATHOLOGY | | + +---------+ + + + | NEUTROPHIL | 9.1 (H) | 1.8 - 7.7 K/cu | [facility] | | | # | | mm | DEPARTMENT | | | | | | OF | | | | | | PATHOLOGY | | + +---------+ + + + | LYMPHOCYTE | 2.2 | 1.0 - 4.8 K/cu | [facility] | | | # | | mm | DEPARTMENT | | | | | | OF | | | | | | PATHOLOGY | | + +---------+ + + + | MONOCYTE # | 0.7 (H) | 0.1 - 0.6 K/cu | [facility] | | | | | mm | DEPARTMENT | | | | | | OF | | | | | | PATHOLOGY | | + +---------+ + + + | EOS # | 0.1 | <0.6 K/cu mm | [facility] | | | | | | DEPARTMENT | | | | | | OF | | | | | | PATHOLOGY | | + +---------+ + + + | BASO # | 0.0 | <0.3 | [facility] | | | | | [...] | + + + + + | [facility] DEPARTMENT OF | [address] | [place] [address] | | | PATHOLOGY | [address] | | | + + + + + | [facility] | [address] | [place] [address] | | | PATHOLOGY | [address] | | | + + + + + CBC, WITH DIFFERENTIAL (06/30/2004 4:10 AM PDT) + + + + + + | Component | Value | Ref Range | Performed | Pathologist | | | | | At | Signature | + + + + + + | WHITE CELL | 12.1 (H) | 4.4 - 11.0 K/cu | [facility] | | | COUNT | | mm | DEPARTMENT | | | | | | OF | | | | | | PATHOLOGY | | + + + + + + | RED CELL | 3.36 (L) | 3.65 - 5.10 | [facility] | | | COUNT | | M/cu mm | DEPARTMENT | | | | | | OF | | | | | | PATHOLOGY | | + + + + + + | HEMOGLOBIN | 9.9 (L) | 11.4 - 15.0 | [facility] | | | | | g/dL | DEPARTMENT | | | | | | OF | | | | | | PATHOLOGY | | + + + + + + | HEMATOCRIT | 30.1 (L) | 33.0 - 44.6 % | [facility] | | | | | | DEPARTMENT | | | | | | OF | | | | | | PATHOLOGY | | + + + + + + | MCV | 89.4 | 80.0 - 96.0 fL | [facility] | | | | | | DEPARTMENT | | | | | | OF | | | | | | PATHOLOGY | | + + + + + + | MCHC | 32.7 (L) | 33.4 - 35.5 | [facility] | | | | | g/dL | DEPARTMENT | | | | | | OF | | | | | | PATHOLOGY | | + + + + + + | RDW | 14.7 | 11.5 - 15.0 % | [facility] | | | | | | DEPARTMENT | | | | | | OF | | | | | | PATHOLOGY | | + + + + + + | PLATELET | 329 | 150 - 400 K/cu | [facility] [...] | + + + + + | [facility] DEPARTMENT | [address] | [place] [address] | | | PATHOLOGY | [address] | | | + + + + + | [facility] DEPARTMENT OF | [facility] [facility] | [place] [address] | | | PATHOLOGY | [address] | | | + + + + + PROTHROMBIN TIME (06/30/2004 4:10 AM PDT) + + + + + + | Component | Value | Ref Range | Performed | Pathologist | | | | | At | Signature | + + + + + + | INR | 1.22 (H)Comment: | 0.90 - 1.20 INR | [facility] | | | | PT INR Therapeutic | | DEPARTMENT | | | | ranges for full | | OF | | | | anticoagulation: | | PATHOLOGY | | | | INR for | | | | | | Venous Thromboembolism | | | | | | | | | | | | (2.0-3.0)INR | | | | | | INR for most | | | | | | patients with mech. | | | | | | valves (2.5-3.5)INR | | | | + + + + + + + + | Specimen | + + | | + + + + + + + | Performing | Address | City/State/Zipcode | Phone Number | | Organization | | | | + + + + + | [facility] | [address] [facility] [facility] | [place] [address] | | | PATHOLOGY | [address] | | | + + + + + | [facility] | [address] [facility] | [place] [address] | | | PATHOLOGY | [address] | | | + + + + + BLOOD GASES, ARTERIAL (06/30/2004 4:10 AM PDT) + +--------+ + + + | Component | Value | Ref Range | Performed | Pathologist | | | | | At | Signature | + +--------+ + + + | PAT TEMP | 36.7 | Degree C | [facility] | | | ARTERIAL | | | DEPARTMENT | | | | | | OF | | | | | | PATHOLOGY | | + +--------+ + + + | FIO2 | .50 | | [facility] | | | ARTERIAL | | | DEPARTMENT | | | | | | OF | | | | | | PATHOLOGY | | + +--------+ + + + | PH ARTERIAL | 7.44 | 7.37 - 7.44 | [facility] | | | | | | DEPARTMENT | | | | | | OF | | | | | | PATHOLOGY | | + +--------+ + + + | PCO2 | 42 | 32 - 43 mmHg | [facility] | | | ARTERIAL | | | DEPARTMENT | | | | | | OF | | | | | | PATHOLOGY | | + +--------+ + + + | PO2 | 81 | 72 - 104 mmHg | [facility] | | | ARTERIAL | | | DEPARTMENT | | | | | | OF | | | | | | PATHOLOGY | | + +--------+ + + + | BASE EXCESS | 4.3 | | [facility] | | | ARTERIAL | | | DEPARTMENT | | | | | | OF | | | | | | PATHOLOGY | | + +--------+ + + + | HCO3 | 28 (H) | 21 - 27 mmol/L | [facility] | | | ARTERIAL | | | DEPARTMENT | | | | | | OF | | | | | | PATHOLOGY | | + +--------+ + + + | TOTAL CO2 | 30 (H) | 22 - 28 mmol/L | [facility] | | | ARTERIAL | | | DEPARTMENT | | | | | | OF | | | | | | PATHOLOGY | | + +--------+ + + + | O2 SAT, | 96.1 | 92.0 - 98.0 % | [facility] | | | ARTERIAL | | | DEPARTMENT | | | | | | OF | | | | | | PATHOLOGY | | + +--------+ + + + + + | Specimen | + + | | + + + + + | Narrative | Performed At | + + + | Arterial Blood Gas | [facility] | | | DEPARTMENT OF | | | PATHOLOGY | + + + + + + + + | Performing | Address | City/State/Zipcode | Phone Number | | Organization | | | | + + + + + | [facility] DEPARTMENT OF | [address] | [place] [address] | | | PATHOLOGY | [address] | | | + + + + + | [facility] DEPARTMENT OF | [address] | [place] [address] | | | PATHOLOGY | [address] | | | + + + + + COMP METABOLIC SET (06/30/2004 4:10 AM PDT) + +---------+ + + + | Component | Value | Ref Range | Performed | Pathologist | | | | | At | Signature | + +---------+ + + + | GLUCOSE, | 109 | 65 - 110 mg/dL | [facility] | | | PLASMA | | | DEPARTMENT | | | (LAB) | | | OF | | | | | | PATHOLOGY | | + +---------+ + + + | BUN, PLASMA | 11 | 6 - 20 mg/dL | [facility] | | | (LAB) | | | DEPARTMENT | | | | | | OF | | | | | | PATHOLOGY | | + +---------+ + + + | CREATININE | 0.6 | 0.6 - 1.1 mg/dL | [facility] | | | PLASMA | | | DEPARTMENT | | | (LAB) | | | OF | | | | | | PATHOLOGY | | + +---------+ + + + | TOTAL | 5.4 (L) | 6.1 - 7.9 g/dL | [facility] | | | PROTEIN, | | | DEPARTMENT | | | PLASMA | | | OF | | | (LAB) | | | PATHOLOGY | | + +---------+ + + + | ALBUMIN, | 1.9 (L) | 3.5 - 4.7 g/dL | [facility] | | | PLASMA | | | DEPARTMENT | | | (LAB) | | | OF | | | | | | PATHOLOGY | | + +---------+ + + + | CALCIUM, | 8.2 (L) | 8.5 - 10.5 | [facility] | | | PLASMA | | mg/dL | DEPARTMENT | | | (LAB) | | | OF | | | | | | PATHOLOGY | | + +---------+ + + + | BILIRUBIN | 0.5 | 0.3 - 1.2 mg/dL | [facility] | | | TOTAL | | | DEPARTMENT | | | | | | OF | | | | | | PATHOLOGY | | + +---------+ + + + | ALK PHOS | 152 (H) | 42 - 98 U/L | [facility] | | | | | | DEPARTMENT | | | | | | OF | | | | | | PATHOLOGY | | + +---------+ + + + | AST(SGOT) | 31 | 15 - 41 U/L | [facility] | | | | | | DEPARTMENT | | | | | | OF | | | | | | PATHOLOGY | | + +---------+ + + + | SODIUM, | 135 (L) | 136 - 145 | [facility] | | | PLASMA | | mmol/L | DEPARTMENT | | | (LAB) | | | OF | | | | | | PATHOLOGY | | + +---------+ + + + | POTASSIUM, | 3.5 | 3.5 - 5.1 | [facility] | | | PLASMA | | mmol/L | DEPARTMENT | | | (LAB) | | | OF | | | | | | PATHOLOGY | | + +---------+ + + + | CHLORIDE, | 102 | 98 - 107 mmol/L | [facility] | | | PLASMA | | | DEPARTMENT | | | (LAB) | | | OF | | | | | | PATHOLOGY | | + +---------+ + + + | TOTAL CO2, | 28 | 23 - 29 mmol/L | [facility] | | | PLASMA | | | DEPARTMENT | | | (LAB) | | | OF | | | | | | PATHOLOGY | | + +---------+ + + + | ALT (SGPT) | 37 | 13 - 48 U/L | [facility] | | | | | [...] | + + + + + | [facility] | [address] | [place] [address] | | | PATHOLOGY | [address] | | | + + + + + | [facility] | [address] | [place] [address] | | | PATHOLOGY | [address] | | | + + + + + MAGNESIUM, PLASMA (06/30/2004 4:10 AM PDT) + +-------+ + + + | Component | Value | Ref Range | Performed | Pathologist | | | | | At | Signature | + +-------+ + + + | MAGNESIUM,P | 2.2 | 1.8 - 2.5 mg/dL | [facility] | | | LASMA | | | DEPARTMENT | | | | | | OF | | | | | | PATHOLOGY | | + +-------+ + + + + + | Specimen | + + | | + + + + + + + | Performing | Address | City/State/Zipcode | Phone Number | | Organization | | | | + + + + + | [facility] DEPARTMENT [facility] | [address] | [place] [address] | | | PATHOLOGY | [address] | | | + + + + + | [facility] | [address] | [place] [address] | | | PATHOLOGY | [address] | | | + + + + + PHOSPHORUS, PLASMA (06/30/2004 4:10 AM PDT) + +-------+ + + + | Component | Value | Ref Range | Performed | Pathologist | | | | | At | Signature | + +-------+ + + + | PHOSPHORUS, | 3.0 | 2.4 - 4.7 mg/dL | [facility] | | | PLASMA | | | DEPARTMENT | | | (LAB) | | | OF | | | | | | PATHOLOGY | | + +-------+ + + + + + | Specimen | + + | | + + + + + + + | Performing | Address | City/State/Zipcode | Phone Number | | Organization | | | | + + + + + | [facility] | [address] | [place] [address] | | | PATHOLOGY | [address] | | | + + + + + | [facility] | [address] [place] [address] [address] | [place] [address] | | | PATHOLOGY | [address] | | | + + + + + BASIC METABOLIC SET (06/29/2004 3:55 PM PDT) + +---------+ + + + | Component | Value | Ref Range | Performed | Pathologist | | | | | At | Signature | + +---------+ + + + | GLUCOSE, | 99 | 65 - 110 mg/dL | [facility] | | | PLASMA | | | DEPARTMENT | | | (LAB) | | | OF | | | | | | PATHOLOGY | | + +---------+ + + + | BUN, PLASMA | 9 | 6 - 20 mg/dL | [facility] | | | (LAB) | | | DEPARTMENT | | | | | | OF | | | | | | PATHOLOGY | | + +---------+ + + + | CREATININE | 0.6 | 0.6 - 1.1 mg/dL | [facility] | | | PLASMA | | | DEPARTMENT | | | (LAB) | | | OF | | | | | | PATHOLOGY | | + +---------+ + + + | SODIUM, | 136 | 136 - 145 | [facility] | | | PLASMA | | mmol/L | DEPARTMENT | | | (LAB) | | | OF | | | | | | PATHOLOGY | | + +---------+ + + + | POTASSIUM, | 3.5 | 3.5 - 5.1 | [facility] | | | PLASMA | | mmol/L | DEPARTMENT | | | (LAB) | | | OF | | | | | | PATHOLOGY | | + +---------+ + + + | CHLORIDE, | 102 | 98 - 107 mmol/L | [facility] | | | PLASMA | | | DEPARTMENT | | | (LAB) | | | OF | | | | | | PATHOLOGY | | + +---------+ + + + | TOTAL CO2, | 29 | 23 - 29 mmol/L | [facility] | | | PLASMA | | | DEPARTMENT | | | (LAB) | | | OF | | | | | | PATHOLOGY | | + +---------+ + + + | CALCIUM, | 8.1 (L) | 8.5 - 10.5 | [facility] | | | PLASMA | [...] | + + + + + | [facility] | [facility] [facility] | [place] [address] | | | PATHOLOGY | [address] | | | + + + + + | [facility] DEPARTMENT OF | [facility] [facility] | [place] [address] | | | PATHOLOGY | [address] | | | + + + + + BLOOD GASES, ARTERIAL (06/29/2004 12:25 PM PDT) + +--------+ + + + | Component | Value | Ref Range | Performed | Pathologist | | | | | At | Signature | + +--------+ + + + | PAT TEMP | NG | Degree C | [facility] | | | ARTERIAL | | | DEPARTMENT | | | | | | OF | | | | | | PATHOLOGY | | + +--------+ + + + | FIO2 | .55 | | [facility] | | | ARTERIAL | | | DEPARTMENT | | | | | | OF | | | | | | PATHOLOGY | | + +--------+ + + + | PH ARTERIAL | 7.41 | 7.37 - 7.44 | [facility] | | | | | | DEPARTMENT | | | | | | OF | | | | | | PATHOLOGY | | + +--------+ + + + | PCO2 | 44 (H) | 32 - 43 mmHg | [facility] | | | ARTERIAL | | | DEPARTMENT | | | | | | OF | | | | | | PATHOLOGY | | + +--------+ + + + | PO2 | 77 | 72 - 104 mmHg | [facility] | | | ARTERIAL | | | DEPARTMENT | | | | | | OF | | | | | | PATHOLOGY | | + +--------+ + + + | BASE EXCESS | 2.8 | | [facility] | | | ARTERIAL | | | DEPARTMENT | | | | | | OF | | | | | | PATHOLOGY | | + +--------+ + + + | HCO3 | 27 | 21 - 27 mmol/L | [facility] | | | ARTERIAL | | | DEPARTMENT | | | | | | OF | | | | | | PATHOLOGY | | + +--------+ + + + | TOTAL CO2 | 29 (H) | 22 - 28 mmol/L | [facility] | | | ARTERIAL | | | DEPARTMENT | | | | | | OF | | | | | | PATHOLOGY | | + +--------+ + + + | O2 SAT, | 95.9 | 92.0 - 98.0 % | [facility] | | | ARTERIAL | | | DEPARTMENT | | | | | | OF | | | | | | PATHOLOGY | | + +--------+ + + + + + | Specimen | + + | | + + + + + | Narrative | Performed At | + + + | Arterial Blood Gas | [facility] | | | DEPARTMENT OF | | | PATHOLOGY | + + + + + + + + | Performing | Address | City/State/Zipcode | Phone Number | | Organization | | | | + + + + + | [facility] | [address] [facility] | [place] [address] | | | PATHOLOGY | [address] | | | + + + + + | [facility] | [address] [facility] | [place] [address] | | | PATHOLOGY | [address] | | | + + + + + CULTURE, SPUTUM (06/29/2004 11:00 AM PDT) + + + + + + | Component | Value | Ref Range | Performed | Pathologist | | | | | At | Signature | + + + + + + | SOURCE BODY | Endotracheal Aspirate | | | | | SITE | | | | | + + + + + + | CULTURE | Sputum Culture | | | | | RESULT | | | | | | | Source...............: | | | | | | Endotracheal Aspirate | | | | | | RLB Gram | | | | | | Stain...........: No | | | | | | Epithelial cells | | | | | | | | | | | | Few PMN's | | | | | | | | | | | | No | | | | | | organisms seen. | | | | | | Culture: Rare | | | | | | Oral gume | | | | | | | | | | | | | | | | | | Final ID | | | | | | Oral gume | | | | | | | | | | | | | | | | | | Prelim ID Final Report | | | | + + + + + + + + | Specimen | + + | | + + + + + + + | Performing | Address | City/State/Zipcode | Phone Number | | Organization | | | | + + + + + | [facility] | [address] | [place] [address] | | | LAB-MICRO | | | | + + + + + VANCOMYCIN, TROUGH (06/29/2004 9:05 AM PDT) + +-------+ + + + | Component | Value | Ref Range | Performed | Pathologist | | | | | At | Signature | + +-------+ + + + | VANCOMYCIN, | 5.9 | 5.0 - 15.0 | [facility] | | | TROUGH | | ug/mL | DEPARTMENT | | | | | | OF | | | | | | PATHOLOGY | | + +-------+ + + + + + | Specimen | + + | | + + + + + | Narrative | Performed At | + + + | Ordered by JOAQUIN BOURGEOIS | [facility] | | | DEPARTMENT OF | | | PATHOLOGY | + + + + + + + + | Performing | Address | City/State/Zipcode | Phone Number | | Organization | | | | + + + + + | [facility] DEPARTMENT OF | [address] | [place] [address] | | | PATHOLOGY | [address] | | | + + + + + | [facility] | [address] | [place] [address] | | | PATHOLOGY | [address] | | | + + + + + CHEST 1 VIEW (06/29/2004 6:16 AM PDT) + + + + + + | Component | Value | Ref Range | Performed | Pathologist | | | | | At | Signature | + + + + + + | CHEST, 1 | Radiologist 1: MANUEL | | | | | VIEW | Minna CARDOZO-Radiologist | | | | | | 2: ELAINE MCBRIDE: | | | | | | AP CHEST COMPARISON: | | | | | | 23 PM. FINDINGS: | | | | | | The support equipment | | | | | | is unchanged. There | | | | | | ispersistent | | | | | | homogeneous, ground | | | | | | glass opacities | | | | | | throughout thelungs | | | | | | bilaterally slightly | | | | | | improved from yesterday. | | | | | | There aremore dense | | | | | | consolidative opacities | | | | | | within the lower | | | | | | lobesbilaterally, | | | | | | possibly a representing | | | | | | the beginning of | | | | | | fibroticphase of ARDS. | | | | | | There are no pleural | | | | | | effusions. There is | | | | | | nopulmonary edema. | | | | | | There is no | | | | | | pneumothorax. The | | | | | | cardiac andmediastinal | | | | | | contours are normal. | | | | | | The osseous structures | | | | | | areunremarkable. | | | | | | IMPRESSION: 1. | | | | | | Slightly decreased | | | | | | homogeneous, ground | | | | | | glass and | | | | | | consolidativeopacities | | | | | | bilaterally, | | | | | | representing improving | | | | | | ARDS. 2. Unchanged | | | | | | support equipment. | | | | + + + + + + + + | Specimen | + + | | + + + +---------+ + + | Performing | Address | City/State/Zipcode | Phone Number | | Organization | | | | + +---------+ + + | [facility] DEPARTMENT OF | | | | | RADIOLOGY | | | | + +---------+ + + DIFFERENTIAL (06/29/2004 4:25 AM PDT) + + + + + + | Component | Value | Ref Range | Performed | Pathologist | | | | | At | Signature | + + + + + + | NEUTROPHIL | 90 (H) | 50 - 70 % | [facility] | | | % | | | DEPARTMENT | | | | | | OF | | | | | | PATHOLOGY | | + + + + + + | LYMPHOCYTE | 5 (L) | 18 - 42 % | [facility] | | | % | | | DEPARTMENT | | | | | | OF | | | | | | PATHOLOGY | | + + + + + + | MONOCYTE % | 5 | 2 - 8 % | [facility] | | | | | | DEPARTMENT | | | | | | OF | | | | | | PATHOLOGY | | + + + + + + | EOS % | 0 (L) | 1 - 3 % | [facility] | | | | | | DEPARTMENT | | | | | | OF | | | | | | PATHOLOGY | | + + + + + + | BASO % | 0 | <3 % | [facility] | | | | | | DEPARTMENT | | | | | | OF | | | | | | PATHOLOGY | | + + + + + + | NEUTROPHIL | 16.4 (H) | 1.8 - 7.7 K/cu | [facility] | | | # | | mm | DEPARTMENT | | | | | | OF | | | | | | PATHOLOGY | | + + + + + + | LYMPHOCYTE | 0.9 (L) | 1.0 - 4.8 K/cu | [facility] | | | # | | mm | DEPARTMENT | | | | | | OF | | | | | | PATHOLOGY | | + + + + + + | MONOCYTE # | 0.9 (H) | 0.1 - 0.6 K/cu | [facility] | | | | | mm | DEPARTMENT | | | | | | OF | | | | | | PATHOLOGY | | + + + + + + | EOS # | 0.0 | <0.6 K/cu mm | [facility] | | | | | | DEPARTMENT | | | | | | OF | | | | | | PATHOLOGY | | + + + + + + | BASO # | 0.0 | <0.3 | [facility] | | | | | | DEPARTMENT | | | | | | OF | | | | | | PATHOLOGY | | + + + + + + + + | Specimen | + + | | + + + + + | Narrative | Performed At | + + + | * Corrected 06/29/04 06:07: UDAY COMMENTS, prev report: Slide | [facility] | | review pending. | DEPARTMENT OF | | | PATHOLOGY | + + + + + + + + | Performing | Address | City/State/Zipcode | Phone Number | | Organization | | | | + + + + + | [facility] DE[facility]MENT [facility] | [address] | [place] [address] | | | PATHOLOGY | [address] | | | + + + + + | [facility] DEPARTMENT | [address] | [place] [address] | | | PATHOLOGY | [address] | | | + + + + + CBC, WITH DIFFERENTIAL (06/29/2004 4:25 AM PDT) + + + + + + | Component | Value | Ref Range | Performed | Pathologist | | | | | At | Signature | + + + + + + | WHITE CELL | 18.2 (H) | 4.4 - 11.0 K/cu | [facility] | | | COUNT | | mm | DEPARTMENT | | | | | | OF | | | | | | PATHOLOGY | | + + + + + + | RED CELL | 3.30 (L) | 3.65 - 5.10 | [facility] | | | COUNT | | M/cu mm | DEPARTMENT | | | | | | OF | | | | | | PATHOLOGY | | + + + + + + | HEMOGLOBIN | 9.9 (L) | 11.4 - 15.0 | [facility] | | | | | g/dL | DEPARTMENT | | | | | | OF | | | | | | PATHOLOGY | | + + + + + + | HEMATOCRIT | 29.2 (L) | 33.0 - 44.6 % | [facility] | | | | | | DEPARTMENT | | | | | | OF | | | | | | PATHOLOGY | | + + + + + + | MCV | 88.1 | 80.0 - 96.0 fL | [facility] | | | | | | DEPARTMENT | | | | | | OF | | | | | | PATHOLOGY | | + + + + + + | MCHC | 34.0 | 33.4 - 35.5 | [facility] | | | | | g/dL | DEPARTMENT | | | | | | OF | | | | | | PATHOLOGY | | + + + + + + | RDW | 15.3 (H) | 11.5 - 15.0 % | [facility] | | | | | | DEPARTMENT | | | | | | OF | | | | | | PATHOLOGY | | + + + + + + | PLATELET | 300 | 150 - 400 K/cu | [facility] | | | COUNT | | mm | DEPARTMENT | | | | | | OF | | | | | | PATHOLOGY | | + + + + + + | DIFF | NRBC's seen on scan of | | [facility] | | | COMMENTS | smear. | | DEPARTMENT | | | | | | OF | | | | | | PATHOLOGY | | + + + + + + | CBC | Final automated | | [facility] | | | COMMENTS | differential report. | | DEPARTMENT | | | | Smear reviewed. | | OF | | | | | | PATHOLOGY | | + + + + + + + + | Specimen | + + | | + + + + + | Narrative | Performed At | + + + | * Corrected 06/29/04 06:07: UDAY COMMENTS, prev report: Slide | [facility] | | review pending. | DEPARTMENT OF | | | PATHOLOGY | + + + + + + + + | Performing | Address | City/State/Zipcode | Phone Number | | Organization | | | | + + + + + | [facility] DEPARTMENT OF | [address] | [place] [address] | | | PATHOLOGY | [address] | | | + + + + + | [facility] | [facility] | [place] [address] | | | PATHOLOGY | [address] | | | + + + + + SLIDE REVIEW (06/29/2004 4:25 AM PDT) + + | Specimen | + + | | + + + + + | Narrative | Performed At | + + + | * Corrected 06/29/04 06:07: UDAY COMMENTS, prev report: Slide | [facility] | | review pending. | DEPARTMENT OF | | | PATHOLOGY | + + + + + + + + | Performing | Address | City/State/Zipcode | Phone Number | | Organization | | | | + + + + + | [facility] | [address] [facility] | [place] [address] | | | PATHOLOGY | [address] | | | + + + + + | [facility] | [address] [facility] | [place] [address] | | | PATHOLOGY | [address] | | | + + + + + PROTHROMBIN TIME (06/29/2004 4:25 AM PDT) + + + + + + | Component | Value | Ref Range | Performed | Pathologist | | | | | At | Signature | + + + + + + | INR | 1.11Comment: | 0.90 - 1.20 INR | [facility] | | | | PT INR Therapeutic | | DEPARTMENT | | | | ranges for full | | OF | | | | anticoagulation: | | PATHOLOGY | | | | INR for | | | | | | Venous Thromboembolism | | | | | | | | | | | | (2.0-3.0)INR | | | | | | INR for most | | | | | | patients with mech. | | | | | | valves (2.5-3.5)INR | | | | + + + + + + + + | Specimen | + + | | + + + + + + + | Performing | Address | City/State/Zipcode | Phone Number | | Organization | | | | + + + + + | [facility] DEPARTMENT OF | [address] | [place] [address] | | | PATHOLOGY | [address] | | | + + + + + | [facility] DEPARTMENT | [address] | [place] [address] | | | PATHOLOGY | [address] | | | + + + + + LACTIC ACID, PLASMA (06/29/2004 4:25 AM PDT) + +-------+ + + + | Component | Value | Ref Range | Performed | Pathologist | | | | | At | Signature | + +-------+ + + + | LACTIC ACID | 1.1 | 0.5 - 2.2 | [facility] | | | | | mmol/L | DEPARTMENT | | | | | | OF | | | | | | PATHOLOGY | | + +-------+ + + + + + | Specimen | + + | | + + + + + + + | Performing | Address | City/State/Zipcode | Phone Number | | Organization | | | | + + + + + | [facility] | [address] | [place] [address] | | | PATHOLOGY | [address] | | | + + + + + | [facility] | [address] | [place] [address] | | | PATHOLOGY | [address] | | | + + + + + BLOOD GASES, ARTERIAL (06/29/2004 4:25 AM PDT) + +--------+ + + + | Component | Value | Ref Range | Performed | Pathologist | | | | | At | Signature | + +--------+ + + + | PAT TEMP | 37.2 | Degree C | [facility] | | | ARTERIAL | | | DEPARTMENT | | | | | | OF | | | | | | PATHOLOGY | | + +--------+ + + + | FIO2 | .5 | | [facility] | | | ARTERIAL | | | DEPARTMENT | | | | | | OF | | | | | | PATHOLOGY | | + +--------+ + + + | PH ARTERIAL | 7.43 | 7.37 - 7.44 | [facility] | | | | | | DEPARTMENT | | | | | | OF | | | | | | PATHOLOGY | | + +--------+ + + + | PCO2 | 42 | 32 - 43 mmHg | [facility] | | | ARTERIAL | | | DEPARTMENT | | | | | | OF | | | | | | PATHOLOGY | | + +--------+ + + + | PO2 | 78 | 72 - 104 mmHg | [facility] | | | ARTERIAL | | | DEPARTMENT | | | | | | OF | | | | | | PATHOLOGY | | + +--------+ + + + | BASE EXCESS | 3.4 | | [facility] | | | ARTERIAL | | | DEPARTMENT | | | | | | OF | | | | | | PATHOLOGY | | + +--------+ + + + | HCO3 | 28 (H) | 21 - 27 mmol/L | [facility] | | | ARTERIAL | | | DEPARTMENT | | | | | | OF | | | | | | PATHOLOGY | | + +--------+ + + + | TOTAL CO2 | 29 (H) | 22 - 28 mmol/L | [facility] | | | ARTERIAL | | | DEPARTMENT | | | | | | OF | | | | | | PATHOLOGY | | + +--------+ + + + | O2 SAT, | 96.6 | 92.0 - 98.0 % | [facility] | | | ARTERIAL | | | DEPARTMENT | | | | | | OF | | | | | | PATHOLOGY | | + +--------+ + + + + + | Specimen | + + | | + + + + + | Narrative | Performed At | + + + | Arterial Blood Gas | [facility] | | | DEPARTMENT OF | | | PATHOLOGY | + + + + + + + + | Performing | Address | City/State/Zipcode | Phone Number | | Organization | | | | + + + + + | [facility] DEPARTMENT OF | [address] | [place] [address] | | | PATHOLOGY | [address] | | | + + + + + | [facility] DEPARTMENT OF | [address] | [place] [address] | | | PATHOLOGY | [address] | | | + + + + + COMP METABOLIC SET (06/29/2004 4:25 AM PDT) + +---------+ + + + | Component | Value | Ref Range | Performed | Pathologist | | | | | At | Signature | + +---------+ + + + | GLUCOSE, | 62 (L) | 65 - 110 mg/dL | [facility] | | | PLASMA | | | DEPARTMENT | | | (LAB) | | | OF | | | | | | PATHOLOGY | | + +---------+ + + + | BUN, PLASMA | 9 | 6 - 20 mg/dL | [facility] | | | (LAB) | | | DEPARTMENT | | | | | | OF | | | | | | PATHOLOGY | | + +---------+ + + + | CREATININE | 0.6 | 0.6 - 1.1 mg/dL | [facility] | | | PLASMA | | | DEPARTMENT | | | (LAB) | | | OF | | | | | | PATHOLOGY | | + +---------+ + + + | TOTAL | 5.8 (L) | 6.1 - 7.9 g/dL | [facility] | | | PROTEIN, | | | DEPARTMENT | | | PLASMA | | | OF | | | (LAB) | | | PATHOLOGY | | + +---------+ + + + | ALBUMIN, | 2.1 (L) | 3.5 - 4.7 g/dL | [facility] | | | PLASMA | | | DEPARTMENT | | | (LAB) | | | OF | | | | | | PATHOLOGY | | + +---------+ + + + | CALCIUM, | 8.3 (L) | 8.5 - 10.5 | [facility] | | | PLASMA | | mg/dL | DEPARTMENT | | | (LAB) | | | OF | | | | | | PATHOLOGY | | + +---------+ + + + | BILIRUBIN | 0.5 | 0.3 - 1.2 mg/dL | [facility] | | | TOTAL | | | DEPARTMENT | | | | | | OF | | | | | | PATHOLOGY | | + +---------+ + + + | ALK PHOS | 176 (H) | 42 - 98 U/L | [facility] | | | | | | DEPARTMENT | | | | | | OF | | | | | | PATHOLOGY | | + +---------+ + + + | AST(SGOT) | 29 | 15 - 41 U/L | [facility] | | | | | | DEPARTMENT | | | | | | OF | | | | | | PATHOLOGY | | + +---------+ + + + | SODIUM, | 139 | 136 - 145 | [facility] | | | PLASMA | | mmol/L | DEPARTMENT | | | (LAB) | | | OF | | | | | | PATHOLOGY | | + +---------+ + + + | POTASSIUM, | 3.1 (L) | 3.5 - 5.1 | [facility] | | | PLASMA | | mmol/L | DEPARTMENT | | | (LAB) | | | OF | | | | | | PATHOLOGY | | + +---------+ + + + | CHLORIDE, | 106 | 98 - 107 mmol/L | [facility] | | | PLASMA | | | DEPARTMENT | | | (LAB) | | | OF | | | | | | PATHOLOGY | | + +---------+ + + + | TOTAL CO2, | 28 | 23 - 29 mmol/L | [facility] | | | PLASMA | | | DEPARTMENT | | | (LAB) | | | OF | | | | | | PATHOLOGY | | + +---------+ + + + | ALT (SGPT) | 34 | 13 - 48 U/L | [facility] | | | | | [...] | + + + + + | [facility] DEPARTMENT OF | [address] | [place] [address] | | | PATHOLOGY | [address] | | | + + + + + | [facility] DEPARTMENT OF | [address] | [place] [address] | | | PATHOLOGY | [address] | | | + + + + + MAGNESIUM, PLASMA (06/29/2004 4:25 AM PDT) + +-------+ + + + | Component | Value | Ref Range | Performed | Pathologist | | | | | At | Signature | + +-------+ + + + | MAGNESIUM,P | 2.2 | 1.8 - 2.5 mg/dL | [facility] | | | LASMA | | | DEPARTMENT | | | | | | OF | | | | | | PATHOLOGY | | + +-------+ + + + + + | Specimen | + + | | + + + + + + + | Performing | Address | City/State/Zipcode | Phone Number | | Organization | | | | + + + + + | [facility] DEPARTMENT OF | [address] | [place] [address] | | | PATHOLOGY | [address] | | | + + + + + | [facility] DEPARTMENT OF | [address] | [place] [address] | | | PATHOLOGY | [address] | | | + + + + + PHOSPHORUS, PLASMA (06/29/2004 4:25 AM PDT) + +-------+ + + + | Component | Value | Ref Range | Performed | Pathologist | | | | | At | Signature | + +-------+ + + + | PHOSPHORUS, | 2.6 | 2.4 - 4.7 mg/dL | [facility] | | | PLASMA | | | DEPARTMENT | | | (LAB) | | | OF | | | | | | PATHOLOGY | | + +-------+ + + + + + | Specimen | + + | | + + + + + + + | Performing | Address | City/State/Zipcode | Phone Number | | Organization | | | | + + + + + | [facility] | [facility] | [place] [address] | | | PATHOLOGY | [address] | | | + + + + + | [facility] DEPARTMENT OF | [address] | [place] [address] | | | PATHOLOGY | [address] | | | + + + + + BLOOD GASES, ARTERIAL (06/29/2004 1:00 AM PDT) + + + + + + | Component | Value | Ref Range | Performed | Pathologist | | | | | At | Signature | + + + + + + | PAT TEMP | 37 | Degree C | [facility] | | | ARTERIAL | | | DEPARTMENT | | | | | | OF | | | | | | PATHOLOGY | | + + + + + + | FIO2 | .5 | | [facility] | | | ARTERIAL | | | DEPARTMENT | | | | | | OF | | | | | | PATHOLOGY | | + + + + + + | PH ARTERIAL | 7.41 | 7.37 - 7.44 | [facility] | | | | | | DEPARTMENT | | | | | | OF | | | | | | PATHOLOGY | | + + + + + + | PCO2 | 43 | 32 - 43 mmHg | [facility] | | | ARTERIAL | | | DEPARTMENT | | | | | | OF | | | | | | PATHOLOGY | | + + + + + + | PO2 | 63 (L) | 72 - 104 mmHg | [facility] | | | ARTERIAL | | | DEPARTMENT | | | | | | OF | | | | | | PATHOLOGY | | + + + + + + | BASE EXCESS | 2.3 | | [facility] | | | ARTERIAL | | | DEPARTMENT | | | | | | OF | | | | | | PATHOLOGY | | + + + + + + | HCO3 | 27 | 21 - 27 mmol/L | [facility] | | | ARTERIAL | | | DEPARTMENT | | | | | | OF | | | | | | PATHOLOGY | | + + + + + + | TOTAL CO2 | 28 | 22 - 28 mmol/L | [facility] | | | ARTERIAL | | | DEPARTMENT | | | | | | OF | | | | | | PATHOLOGY | | + + + + + + | O2 SAT, | 91.7 (L) | 92.0 - 98.0 % | [facility] | | | ARTERIAL | | | DEPARTMENT | | | | | | OF | | | | | | PATHOLOGY | | + + + + + + + + | Specimen | + + | | + + + + + | Narrative | Performed At | + + + | Ordered by JOAQUIN BOURGEOIS Arterial Blood Gas | [facility] | | | DEPARTMENT OF | | | PATHOLOGY | + + + + + + + + | Performing | Address | City/State/Zipcode | Phone Number | | Organization | | | | + + + + + | [facility] DEPARTMENT | [address] [facility] | [place] [address] | | | PATHOLOGY | [address] | | | + + + + + | [facility] | [address] [facility] | [place] [address] | | | PATHOLOGY | [address] | | | + + + + + BLOOD GASES, VENOUS (06/29/2004 12:10 AM PDT) + +-------+ + + + | Component | Value | Ref Range | Performed | Pathologist | | | | | At | Signature | + +-------+ + + + | PAT TEMP | 38.2 | Degree C | [facility] | | | VENOUS | | | DEPARTMENT | | | | | | OF | | | | | | PATHOLOGY | | + +-------+ + + + | FIO2 VENOUS | .50 | | [facility] | | | | | | DEPARTMENT | | | | | | OF | | | | | | PATHOLOGY | | + +-------+ + + + | PH VENOUS | 7.38 | 7.35 - 7.45 | [facility] | | | | | | DEPARTMENT | | | | | | OF | | | | | | PATHOLOGY | | + +-------+ + + + | PCO2 VENOUS | 46 | 35 - 50 mmHg | [facility] | | | | | | DEPARTMENT | | | | | | OF | | | | | | PATHOLOGY | | + +-------+ + + + | PO2 VENOUS | 50 | 30 - 55 mmHg | [facility] | | | | | | DEPARTMENT | | | | | | OF | | | | | | PATHOLOGY | | + +-------+ + + + | BASE EXCESS | 1.7 | | [facility] | | | VENOUS | | | DEPARTMENT | | | | | | OF | | | | | | PATHOLOGY | | + +-------+ + + + | HCO3 VENOUS | 26 | 22 - 28 mmol/L | [facility] | | | | | | DEPARTMENT | | | | | | OF | | | | | | PATHOLOGY | | + +-------+ + + + | TOTAL CO2 | 28 | 23 - 29 mmol/L | [facility] | | | VENOUS | | | DEPARTMENT | | | | | | OF | | | | | | PATHOLOGY | | + +-------+ + + + | O2 SAT, | 80.6 | % | [facility] | | | VENOUS | | | DEPARTMENT | | | | | | OF | | | | | | PATHOLOGY | | + +-------+ + + + + + | Specimen | + + | | + + + + + | Narrative | Performed At | + + + | Ordered by JOAQUIN BOURGEOIS Venous Blood Gas | [facility] | | | DEPARTMENT OF | | | PATHOLOGY | + + + + + + + + | Performing | Address | City/State/Zipcode | Phone Number | | Organization | | | | + + + + + | [facility] | [address] | [place] [address] | | | PATHOLOGY | [address] | | | + + + + + | [facility] DEPARTMENT OF | [address] | [place] [address] | | | PATHOLOGY | [address] | | | + + + + + CORTISOL, SERUM (06/28/2004 11:45 PM PDT) + +--------+ + + + | Component | Value | Ref Range | Performed | Pathologist | | | | | At | Signature | + +--------+ + + + | CORTISOL, | 32 (H) | 5 - 23 ug/dl | | | | TOTAL SERUM | | | | | + +--------+ + + + + + | Specimen | + + | | + + + + + | Narrative | Performed At | + + + | Cortisol Reference Ranges | | | AM Reference Range: 8 - 23 ug/dl | | | PM Reference Range: Less than 10 ug/dl | | + + + + + + + + | Performing | Address | City/State/Zipcode | Phone Number | | Organization | | | | + + + + + | [facility] | [address] | [place] [address] | | | LABORATORY | | | | + + + + + CORTISOL, SERUM (06/28/2004 10:10 PM PDT) + +-------+ + + + | Component | Value | Ref Range | Performed | Pathologist | | | | | At | Signature | + +-------+ + + + | CORTISOL, | 4 (L) | 5 - 23 ug/dl | | | | TOTAL SERUM | | | | | + +-------+ + + + + + | Specimen | + + | | + + + + + | Narrative | Performed At | + + + | Cortisol Reference Ranges | | | AM Reference Range: 8 - 23 ug/dl | | | PM Reference Range: Less than 10 ug/dl | | + + + + + + + + | Performing | Address | City/State/Zipcode | Phone Number | | Organization | | | | + + + + + | [facility] | [address] | [place] [address] | | | LABORATORY | | | | + + + + + CALCIUM, IONIZED, WHOLE BLOOD (06/28/2004 10:10 PM PDT) + + + + + + | Component | Value | Ref Range | Performed | Pathologist | | | | | At | Signature | + + + + + + | KYLIE ICA, | 1.10 (L) | 1.14 - 1.32 | [facility] | | | WHOLE BLD | | mmol/L | DEPARTMENT | | | | | | OF | | | | | | PATHOLOGY | | + + + + + + | PH, WHOLE | 7.45 | | [facility] | | | BLOOD | | | DEPARTMENT | | | | | | OF | | | | | | PATHOLOGY | | + + + + + + | CALC ICA, | 1.13 (L) | 1.14 - 1.28 | [facility] | | | WHOLE BLD | | mmol/L | DEPARTMENT | | | | | | OF | | | | | | PATHOLOGY | | + + + + + + + + | Specimen | + + | | + + + + + | Narrative | Performed At | + + + | Ionized Calcium, Whole Blood | [facility] | | | DEPARTMENT OF | | | PATHOLOGY | + + + + + + + + | Performing | Address | City/State/Zipcode | Phone Number | | Organization | | | | + + + + + | [facility] DEPARTMENT OF | [address] | [place] [address] | | | PATHOLOGY | [address] | | | + + + + + | [facility] DEPARTMENT OF | [address] | [place] [address] | | | PATHOLOGY | [address] | | | + + + + + BASIC METABOLIC SET (06/28/2004 10:10 PM PDT) + +---------+ + + + | Component | Value | Ref Range | Performed | Pathologist | | | | | At | Signature | + +---------+ + + + | GLUCOSE, | 82 | 65 - 110 mg/dL | [facility] | | | PLASMA | | | DEPARTMENT | | | (LAB) | | | OF | | | | | | PATHOLOGY | | + +---------+ + + + | BUN, PLASMA | 9 | 6 - 20 mg/dL | [facility] | | | (LAB) | | | DEPARTMENT | | | | | | OF | | | | | | PATHOLOGY | | + +---------+ + + + | CREATININE | 0.6 | 0.6 - 1.1 mg/dL | [facility] | | | PLASMA | | | DEPARTMENT | | | (LAB) | | | OF | | | | | | PATHOLOGY | | + +---------+ + + + | SODIUM, | 140 | 136 - 145 | [facility] | | | PLASMA | | mmol/L | DEPARTMENT | | | (LAB) | | | OF | | | | | | PATHOLOGY | | + +---------+ + + + | POTASSIUM, | 3.8 | 3.5 - 5.1 | [facility] | | | PLASMA | | mmol/L | DEPARTMENT | | | (LAB) | | | OF | | | | | | PATHOLOGY | | + +---------+ + + + | CHLORIDE, | 103 | 98 - 107 mmol/L | [facility] | | | PLASMA | | | DEPARTMENT | | | (LAB) | | | OF | | | | | | PATHOLOGY | | + +---------+ + + + | TOTAL CO2, | 28 | 23 - 29 mmol/L | [facility] | | | PLASMA | | | DEPARTMENT | | | (LAB) | | | OF | | | | | | PATHOLOGY | | + +---------+ + + + | CALCIUM, | 8.2 (L) | 8.5 - 10.5 | [facility] | | | PLASMA | [...] | + + + + + | [facility] | [address] | [place] [address] | | | PATHOLOGY | [address] | | | + + + + + | [facility] | [address] [address] | [place] [address] | | | PATHOLOGY | [address] | | | + + + + + MAGNESIUM, PLASMA (06/28/2004 10:10 PM PDT) + +-------+ + + + | Component | Value | Ref Range | Performed | Pathologist | | | | | At | Signature | + +-------+ + + + | MAGNESIUM,P | 2.1 | 1.8 - 2.5 mg/dL | [facility] | | | LASMA | | | DEPARTMENT | | | | | | OF | | | | | | PATHOLOGY | | + +-------+ + + + + + | Specimen | + + | | + + + + + + + | Performing | Address | City/State/Zipcode | Phone Number | | Organization | | | | + + + + + | [facility] DEPARTMENT OF | [address] | [place] [address] | | | PATHOLOGY | [address] | | | + + + + + | [facility] DEPARTMENT OF | [address] | [place] [address] | | | PATHOLOGY | [address] | | | + + + + + PHOSPHORUS, PLASMA (06/28/2004 10:10 PM PDT) + +-------+ + + + | Component | Value | Ref Range | Performed | Pathologist | | | | | At | Signature | + +-------+ + + + | PHOSPHORUS, | 2.7 | 2.4 - 4.7 mg/dL | [facility] | | | PLASMA | | | DEPARTMENT | | | (LAB) | | | OF | | | | | | PATHOLOGY | | + +-------+ + + + + + | Specimen | + + | | + + + + + + + | Performing | Address | City/State/Zipcode | Phone Number | | Organization | | | | + + + + + | [facility] | [address] | [place] [address] | | | PATHOLOGY | [address] | | | + + + + + | [facility] | [address] | [place] [address] | | | PATHOLOGY | [address] | | | + + + + + HEMATOCRIT (06/28/2004 10:00 PM PDT) + + + + + + | Component | Value | Ref Range | Performed | Pathologist | | | | | At | Signature | + + + + + + | HEMATOCRIT | 27.5 (L) | 33.0 - 44.6 % | [facility] | | | | [...] | + + + + + | [facility] DEPARTMENT OF | [address] | [place] [address] | | | PATHOLOGY | [address] | | | + + + + + | [facility] DEPARTMENT OF | [address] | [place] [address] | | | PATHOLOGY | [address] | | | + + + + + CULT, BLOOD MAGI & SHARI (06/28/2004 9:30 PM PDT) + + + + + + | Component | Value | Ref Range | Performed | Pathologist | | | | | At | Signature | + + + + + + | SOURCE BODY | Peripheral | | | | | SITE | | | | | + + + + + + | CULTURE | Blood Culture | | | | | RESULT | | | | | | | Source.................. | | | | | | : Peripheral | | | | | | Preliminary | | | | | | Report......: Blood | | | | | | Culture Received. No | | | | | | Growth to Date. | | | | | | Culture | | | | | | Report............: | | | | | | Final Report: No | | | | | | Bacteria or Yeast | | | | | | | | | | | | | | | | | | isolated at 5 days. | | | | + + + + + + + + | Specimen | + + | | + + + + + + + | Performing | Address | City/State/Zipcode | Phone Number | | Organization | | | | + + + + + | [facility] | [address] | [place] [address] | | | LAB-MICRO | | | | + + + + + BLOOD GASES, ARTERIAL (06/28/2004 6:40 PM PDT) + + + + + + | Component | Value | Ref Range | Performed | Pathologist | | | | | At | Signature | + + + + + + | PAT TEMP | 37.9 | Degree C | [facility] | | | ARTERIAL | | | DEPARTMENT | | | | | | OF | | | | | | PATHOLOGY | | + + + + + + | FIO2 | .70 | | [facility] | | | ARTERIAL | | | DEPARTMENT | | | | | | OF | | | | | | PATHOLOGY | | + + + + + + | PH ARTERIAL | 7.41 | 7.37 - 7.44 | [facility] | | | | | | DEPARTMENT | | | | | | OF | | | | | | PATHOLOGY | | + + + + + + | PCO2 | 41 | 32 - 43 mmHg | [facility] | | | ARTERIAL | | | DEPARTMENT | | | | | | OF | | | | | | PATHOLOGY | | + + + + + + | PO2 | 186 (H) | 72 - 104 mmHg | [facility] | | | ARTERIAL | | | DEPARTMENT | | | | | | OF | | | | | | PATHOLOGY | | + + + + + + | BASE EXCESS | 1.3 | | [facility] | | | ARTERIAL | | | DEPARTMENT | | | | | | OF | | | | | | PATHOLOGY | | + + + + + + | HCO3 | 26 | 21 - 27 mmol/L | [facility] | | | ARTERIAL | | | DEPARTMENT | | | | | | OF | | | | | | PATHOLOGY | | + + + + + + | TOTAL CO2 | 27 | 22 - 28 mmol/L | [facility] | | | ARTERIAL | | | DEPARTMENT | | | | | | OF | | | | | | PATHOLOGY | | + + + + + + | O2 SAT, | 99.4 (H) | 92.0 - 98.0 % | [facility] | | | ARTERIAL | | | DEPARTMENT | | | | | | OF | | | | | | PATHOLOGY | | + + + + + + + + | Specimen | + + | | + + + + + | Narrative | Performed At | + + + | Arterial Blood Gas | [facility] | | | DEPARTMENT OF | | | PATHOLOGY | + + + + + + + + | Performing | Address | City/State/Zipcode | Phone Number | | Organization | | | | + + + + + | [facility] DEPARTMENT OF | [address] | [place] [address] | | | PATHOLOGY | [address] | | | + + + + + | [facility] DEPARTMENT OF | [address] | [place] [address] | | | PATHOLOGY | [address] | | | + + + + + LACTIC ACID, PLASMA (06/28/2004 6:10 PM PDT) + +-------+ + + + | Component | Value | Ref Range | Performed | Pathologist | | | | | At | Signature | + +-------+ + + + | LACTIC ACID | 1.5 | 0.5 - 2.2 | [facility] | | | | | mmol/L | DEPARTMENT | | | | | | OF | | | | | | PATHOLOGY | | + +-------+ + + + + + | Specimen | + + | | + + + + + + + | Performing | Address | City/State/Zipcode | Phone Number | | Organization | | | | + + + + + | [facility] DEPARTMENT OF | [address] | [place] [address] | | | PATHOLOGY | [address] | | | + + + + + | [facility] DEPARTMENT OF | [address] [address] [address] | [place] [address] | | | PATHOLOGY | [address] | | | + + + + + CULT, URINE BACTI (06/28/2004 5:00 PM PDT) + + + + + + | Component | Value | Ref Range | Performed | Pathologist | | | | | At | Signature | + + + + + + | SOURCE BODY | Retention catheter | | | | | SITE | | | | | + + + + + + | CULTURE | Urine Culture | | | | | RESULT | | | | | | | Source...............: | | | | | | Retention catheter | | | | | | Culture: Final | | | | | | Report: No growth (< | | | | | | 1,000 col/ml) after | | | | | | 18-24 | | | | | | | | | | | | hours Final Report | | | | + + + + + + + + | Specimen | + + | | + + + + + + + | Performing | Address | City/State/Zipcode | Phone Number | | Organization | | | | + + + + + | [facility] | [address] | [place] [address] | | | LAB-MICRO | | | | + + + + + PEBBLES, DUSTIN ONLY (06/28/2004 5:00 PM PDT) + + + + + + | Component | Value | Ref Range | Performed | Pathologist | | | | | At | Signature | + + + + + + | COLOR(UR) | Straw | | [facility] | | | | | | DEPARTMENT | | | | | | OF | | | | | | PATHOLOGY | | + + + + + + | APPEARANCE | Clear | | [facility] | | | | | | DEPARTMENT | | | | | | OF | | | | | | PATHOLOGY | | + + + + + + | GLUCOSE(UR) | 500 | mg/dL | [facility] | | | | | | DEPARTMENT | | | | | | OF | | | | | | PATHOLOGY | | + + + + + + | BILIRUBIN | Negative | | [facility] | | | | | | DEPARTMENT | | | | | | OF | | | | | | PATHOLOGY | | + + + + + + | KETONES | 40 | mg/dL | [facility] | | | | | | DEPARTMENT | | | | | | OF | | | | | | PATHOLOGY | | + + + + + + | SPECIFIC | 1.015 | 1.005 - 1.030 | [facility] | | | GRAVITY | | | DEPARTMENT | | | | | | OF | | | | | | PATHOLOGY | | + + + + + + | BLOOD | Small | | [facility] | | | | | | DEPARTMENT | | | | | | OF | | | | | | PATHOLOGY | | + + + + + + | PH(UR) | 6.0 | 5.0 - 8.0 | [facility] | | | | | | DEPARTMENT | | | | | | OF | | | | | | PATHOLOGY | | + + + + + + | PROTEIN(LAB | Negative | mg/dL | [facility] | | | ) | | | DEPARTMENT | | | | | | OF | | | | | | PATHOLOGY | | + + + + + + | UROBILINOGE | 0.2 | 0 - 0.2 ROCIO | [facility] | | | N | | UNITS | DEPARTMENT | | | | | | OF | | | | | | PATHOLOGY | | + + + + + + | NITRITES | Negative | Negative | [facility] | | | | | | DEPARTMENT | | | | | | OF | | | | | | PATHOLOGY | | + + + + + + | LEUKOCYTE | Negative | Negative | [facility] | | | ESTERASE | | | DEPARTMENT | | | [...] | + + + + + | [facility] | [address] | [place] [address] | | | PATHOLOGY | [address] | | | + + + + + | [facility] | [address] | [place] [address] | | | PATHOLOGY | [address] | | | + + + + + URINE, MICROSCOPIC EXAM (06/28/2004 5:00 PM PDT) + +-------+ + + + | Component | Value | Ref Range | Performed | Pathologist | | | | | At | Signature | + +-------+ + + + | SQUAMOUS | Few | /hpf | [facility] | | | EPITHELIAL | | | DEPARTMENT | | | | | | OF | | | | | | PATHOLOGY | | + +-------+ + + + | NON-SQUAMOU | None | /hpf | [facility] | | | S EPITH | | | DEPARTMENT | | | | | | OF | | | | | | PATHOLOGY | | + +-------+ + + + | RED CELLS | 3-6 | 0 - 3 /hpf | [facility] | | | | | | DEPARTMENT | | | | | | OF | | | | | | PATHOLOGY | | + +-------+ + + + | WHITE CELLS | 0-2 | 0 - 5 /hpf | [facility] | | | | | | DEPARTMENT | | | | | | OF | | | | | | PATHOLOGY | | + +-------+ + + + | BACTERIA | None | /hpf | [facility] | | | | | | DEPARTMENT | | | | | | OF | | | | | | PATHOLOGY | | + +-------+ + + + | MUCOUS | None | /lpf | [facility] | | | | | | DEPARTMENT | | | | | | OF | | | | | | PATHOLOGY | | + +-------+ + + + | HYALINE | 1-3 | 0 - 1 /lpf | [facility] | | | CASTS | | | DEPARTMENT | | | | | | OF | | | | | | PATHOLOGY | | + +-------+ + + + | GRANULAR | None | /lpf | [facility] | | | CASTS | | | DEPARTMENT | | | | | | OF | | | | | | PATHOLOGY | | + +-------+ + + + | CELLULAR | None | /lpf | [facility] | | | CASTS | | | DEPARTMENT | | | | | | OF | | | | | | PATHOLOGY | | + +-------+ + + + | AMORPHOUS | None | /hpf | [facility] | | | CRYSTALS | | | DEPARTMENT | | | | | | OF | | | | | | PATHOLOGY | | + +-------+ + + + | CALCIUM | None | /hpf | [facility] | | | OXALATE | | | DEPARTMENT | | | ALONDRA | | | OF | | | | | | PATHOLOGY | | + +-------+ + + + | URIC ACID | None | /hpf | [facility] | | | CRYSTALS | | | DEPARTMENT | | | | | | OF | | | | | | PATHOLOGY | | + +-------+ + + + | TRIPLE P04 | None | /hpf | [facility] | | | CRYSTALS | | | DEPARTMENT | | | | | | OF | | | | | | PATHOLOGY | | + +-------+ + + + | YEAST (LAB) | Few | /hpf | [facility] | | | | | | DEPARTMENT | | | | | | OF | | | | | | PATHOLOGY | | + +-------+ + + + | TRICHOMONAS | None | /hpf | [facility] | | | | | | DEPARTMENT | | | | | | OF | | | | | | PATHOLOGY | | + +-------+ + + + + + | Specimen | + + | | + + + + + + + | Performing | Address | City/State/Zipcode | Phone Number | | Organization | | | | + + + + + | [facility] DEPARTMENT OF | [address] | [place] [address] | | | PATHOLOGY | [address] | | | + + + + + | [facility] DEPARTMENT OF | [address] | [place] [address] | | | PATHOLOGY | [address] | | | + + + + + CHEST 1 VIEW (06/28/2004 3:22 PM PDT) + + + + + + | Component | Value | Ref Range | Performed | Pathologist | | | | | At | Signature | + + + + + + | CHEST, 1 | Radiologist 1: EVONNE, | | | | | VIEW | Minna JOHNSONSingle | | | | | | frontal chest no | | | | | | comparisons shows right | | | | | | jugular cathetertip 2 cm | | | | | | above caval atrial | | | | | | junction, ET tube tip | | | | | | 4.8 cm abovecarina. | | | | | | Lung volumes low. | | | | | | Considering this the | | | | | | heart is probablynot | | | | | | enlarged. The low lung | | | | | | volumes make it | | | | | | difficult to assessthe | | | | | | lungs but there appears | | | | | | to be diffuse ground | | | | | | glassopacification | | | | | | throughout both lungs. | | | | | | Conclusion: Diffusely | | | | | | abnormal appearing lungs | | | | | | worrisome foredema. | | | | + + + + + + + + | Specimen | + + | | + + + +---------+ + + | Performing | Address | City/State/Zipcode | Phone Number | | Organization | | | | + +---------+ + + | [facility] DEPARTMENT OF | | | | | RADIOLOGY | | | | + +---------+ + + TSH-THYROID STIM HORMONE (06/28/2004 2:30 PM PDT) + + + + + + | Component | Value | Ref Range | Performed | Pathologist | | | | | At | Signature | + + + + + + | TSH | 0.46Comment: Test | 0.28 - 5.00 | | | | | performed by Franc | Sanna[facility]/ml | | | | | [facility] | | | | | | Laboratories. | | | | + + + + + + + + | Specimen | + + | | + + + + + + + | Performing | Address | City/State/Zipcode | Phone Number | | Organization | | | | + + + + + | [facility] | [address] | [place] [address] | | | LABORATORY | | | | + + + + + SOFÍA, BLOOD LUTHERI & SHARI (06/28/2004 2:30 PM PDT) + + + + + + | Component | Value | Ref Range | Performed | Pathologist | | | | | At | Signature | + + + + + + | SOURCE BODY | Right IJ Central venous | | | | | SITE | catheter | | | | + + + + + + | CULTURE | Blood Culture | | | | | RESULT | | | | | | | Source.................. | | | | | | : Right IJ Central | | | | | | venous catheter | | | | | | Preliminary | | | | | | Report......: Blood | | | | | | Culture Received. No | | | | | | Growth to Date. | | | | | | Culture | | | | | | Report............: | | | | | | Final Report: No | | | | | | Bacteria or Yeast | | | | | | | | | | | | | | | | | | isolated at 5 days. | | | | + + + + + + + + | Specimen | + + | | + + + + + + + | Performing | Address | City/State/Zipcode | Phone Number | | Organization | | | | + + + + + | [facility] | [address] | [place] [address] | | | LAB-MICRO | | | | + + + + + ANTIBODY SCREEN & CROSSMATCH (06/28/2004 2:30 PM PDT) + +-------+ + + + | Component | Value | Ref Range | Performed | Pathologist | | | | | At | Signature | + +-------+ + + + | ABO GROUP | O | | [facility] | | | | | | DEPARTMENT | | | | | | OF | | | | | | PATHOLOGY | | + +-------+ + + + | RH TYPE | POS | | [facility] | | | | | | DEPARTMENT | | | | | | OF | | | | | | PATHOLOGY | | + +-------+ + + + | ANTIBODY | NEG | | [facility] | | | SCREEN | | | DEPARTMENT | | | | | | OF | | | | | | PATHOLOGY | | + +-------+ + + + + + | Specimen | + + | | + + + + + | Narrative | Performed At | + + + | SPEC EXPIRES 07/01/04@0700 | [facility] | | | DEPARTMENT OF | | | PATHOLOGY | + + + + + + + + | Performing | Address | City/State/Zipcode | Phone Number | | Organization | | | | + + + + + | [facility] | [address] | [place] [address] | | | PATHOLOGY | [address] | | | + + + + + | [facility] | [address] [place] [address] | [place] [address] | | | PATHOLOGY | [address] | | | + + + + + DIFFERENTIAL (06/28/2004 2:30 PM PDT) + + + + + + | Component | Value | Ref Range | Performed | Pathologist | | | | | At | Signature | + + + + + + | NEUTROPHIL | 93 (H) | 50 - 70 % | [facility] | | | % | | | DEPARTMENT | | | | | | OF | | | | | | PATHOLOGY | | + + + + + + | LYMPHOCYTE | 4 (L) | 18 - 42 % | [facility] | | | % | | | DEPARTMENT | | | | | | OF | | | | | | PATHOLOGY | | + + + + + + | MONOCYTE % | 3 | 2 - 8 % | [facility] | | | | | | DEPARTMENT | | | | | | OF | | | | | | PATHOLOGY | | + + + + + + | EOS % | 0 (L) | 1 - 3 % | [facility] | | | | | | DEPARTMENT | | | | | | OF | | | | | | PATHOLOGY | | + + + + + + | BASO % | 0 | <3 % | [facility] | | | | | | DEPARTMENT | | | | | | OF | | | | | | PATHOLOGY | | + + + + + + | NEUTROPHIL | 17.4 (H) | 1.8 - 7.7 K/cu | [facility] | | | # | | mm | DEPARTMENT | | | | | | OF | | | | | | PATHOLOGY | | + + + + + + | LYMPHOCYTE | 0.7 (L) | 1.0 - 4.8 K/cu | [facility] | | | # | | mm | DEPARTMENT | | | | | | OF | | | | | | PATHOLOGY | | + + + + + + | MONOCYTE # | 0.6 | 0.1 - 0.6 K/cu | [facility] | | | | | mm | DEPARTMENT | | | | | | OF | | | | | | PATHOLOGY | | + + + + + + | EOS # | 0.0 | <0.6 K/cu mm | [facility] | | | | | | DEPARTMENT | | | | | | OF | | | | | | PATHOLOGY | | + + + + + + | BASO # | 0.0 | <0.3 | [facility] | | | | | | DEPARTMENT | | | | | | OF | | | | | | PATHOLOGY | | + + + + + + + + | Specimen | + + | | + + + + + | Narrative | Performed At | + + + | * Corrected 04/03/05 16:02: UDAY COMMENTS, prev report: Slide | [facility] | | review pending. | DEPARTMENT OF | | | PATHOLOGY | + + + + + + + + | Performing | Address | City/State/Zipcode | Phone Number | | Organization | | | | + + + + + | [facility] DEPARTMENT OF | [facility] [facility] | [place] [address] | | | PATHOLOGY | [address] | | | + + + + + | [facility] DEPARTMENT OF | [address] [facility] | [facility] [place] [address] | | | PATHOLOGY | [address] | | | + + + + + CBC, WITH DIFFERENTIAL (06/28/2004 2:30 PM PDT) + + + + + + | Component | Value | Ref Range | Performed | Pathologist | | | | | At | Signature | + + + + + + | WHITE CELL | 18.7 (H) | 4.4 - 11.0 K/cu | [facility] | | | COUNT | | mm | DEPARTMENT | | | | | | OF | | | | | | PATHOLOGY | | + + + + + + | RED CELL | 3.40 (L) | 3.65 - 5.10 | [facility] | | | COUNT | | M/cu mm | DEPARTMENT | | | | | | OF | | | | | | PATHOLOGY | | + + + + + + | HEMOGLOBIN | 10.2 (L) | 11.4 - 15.0 | [facility] | | | | | g/dL | DEPARTMENT | | | | | | OF | | | | | | PATHOLOGY | | + + + + + + | HEMATOCRIT | 30.3 (L) | 33.0 - 44.6 % | [facility] | | | | | | DEPARTMENT | | | | | | OF | | | | | | PATHOLOGY | | + + + + + + | MCV | 89.1 | 80.0 - 96.0 fL | [facility] | | | | | | DEPARTMENT | | | | | | OF | | | | | | PATHOLOGY | | + + + + + + | MCHC | 33.7 | 33.4 - 35.5 | [facility] | | | | | g/dL | DEPARTMENT | | | | | | OF | | | | | | PATHOLOGY | | + + + + + + | RDW | 15.4 (H) | 11.5 - 15.0 % | [facility] | | | | | | DEPARTMENT | | | | | | OF | | | | | | PATHOLOGY | | + + + + + + | PLATELET | 370 | 150 - 400 K/cu | [facility] | | | COUNT | | mm | DEPARTMENT | | | | | | OF | | | | | | PATHOLOGY | | + + + + + + | DIFF | <or= 10% bands seen on | | [facility] | | | COMMENTS | scan. | | DEPARTMENT | | | | | | OF | | | | | | PATHOLOGY | | + + + + + + | CBC | Final automated | | [facility] | | | COMMENTS | differential report. | | DEPARTMENT | | | | Smear reviewed. | | OF | | | | | | PATHOLOGY | | + + + + + + + + | Specimen | + + | | + + + + + | Narrative | Performed At | + + + | * Corrected 06/28/04 16:02: UDAY COMMENTS, prev report: Slide | [facility] | | review pending. | DEPARTMENT OF | | | PATHOLOGY | + + + + + + + + | Performing | Address | City/State/Zipcode | Phone Number | | Organization | | | | + + + + + | [facility] | [address] [facility] | [place] [address] | | | PATHOLOGY | [address] | | | + + + + + | [facility] | [address] [facility] | [place] [address] | | | PATHOLOGY | [address] | | | + + + + + SLIDE REVIEW (06/28/2004 2:30 PM PDT) + + | Specimen | + + | | + + + + + | Narrative | Performed At | + + + | * Corrected 06/28/04 16:02: UDAY COMMENTS, prev report: Slide | [facility] | | review pending. | DEPARTMENT OF | | | PATHOLOGY | + + + + + + + + | Performing | Address | City/State/Zipcode | Phone Number | | Organization | | | | + + + + + | [facility] DEPARTMENT OF | [address] | [place] [address] | | | PATHOLOGY | [address] | | | + + + + + | [facility] DEPARTMENT OF | [address] | [place] [address] | | | PATHOLOGY | [address] | | | + + + + + PROTHROMBIN TIME (06/28/2004 2:30 PM PDT) + + + + + + | Component | Value | Ref Range | Performed | Pathologist | | | | | At | Signature | + + + + + + | INR | 1.14Comment: | 0.90 - 1.20 INR | [facility] | | | | PT INR Therapeutic | | DEPARTMENT | | | | ranges for full | | OF | | | | anticoagulation: | | PATHOLOGY | | | | INR for | | | | | | Venous Thromboembolism | | | | | | | | | | | | (2.0-3.0)INR | | | | | | INR for most | | | | | | patients with mech. | | | | | | valves (2.5-3.5)INR | | | | + + + + + + + + | Specimen | + + | | + + + + + + + | Performing | Address | City/State/Zipcode | Phone Number | | Organization | | | | + + + + + | [facility] | [facility] [facility] | [place] [address] | | | PATHOLOGY | [address] | | | + + + + + | [facility] DEPARTMENT OF | [facility] [facility] | [place] [address] | | | PATHOLOGY | [address] | | | + + + + + APTT (ACT. PART. THROMBO TIME) (06/28/2004 2:30 PM PDT) + + + + + + | Component | Value | Ref Range | Performed | Pathologist | | | | | At | Signature | + + + + + + | APTT | 34.0Comment: | 26.0 - 36.0 | [facility] | | | | APTT Therapeutic Range | seconds | DEPARTMENT | | | | | | OF | | | | | | PATHOLOGY | | | | (75-120)sec | | | | | | Heparin levels | | | | | | of 0.35-0.7 U/mL | | | | + + + + + + + + | Specimen | + + | | + + + + + + + | Performing | Address | City/State/Zipcode | Phone Number | | Organization | | | | + + + + + | [facility] DEPARTMENT OF | [address] | [place] [address] | | | PATHOLOGY | [address] | | | + + + + + | [facility] DEPARTMENT OF | [address] | [place] [address] | | | PATHOLOGY | [address] | | | + + + + + KETONE BODIES SCREEN, PLASMA (06/28/2004 2:30 PM PDT) + +-------+ + + + | Component | Value | Ref Range | Performed | Pathologist | | | | | At | Signature | + +-------+ + + + | KETONE | 15 | Negative mg/dL | [facility] | | | BODIES | | | DEPARTMENT | | | SERUM | | | OF | | | | | | PATHOLOGY | | + +-------+ + + + + + | Specimen | + + | | + + + + + + + | Performing | Address | City/State/Zipcode | Phone Number | | Organization | | | | + + + + + | [facility] DEPARTMENT OF | [address] | [place] [address] | | | PATHOLOGY | [address] | | | + + + + + | [facility] DEPARTMENT OF | [address] | [place] [address] | | | PATHOLOGY | [address] | | | + + + + + TROPONIN I (06/28/2004 2:30 PM PDT) + +-------+ + + + | Component | Value | Ref Range | Performed | Pathologist | | | | | At | Signature | + +-------+ + + + | TROPONIN I | 0.06 | <0.50 ng/mL | [facility] | | | | | | DEPARTMENT | | | | | | OF | | | | | | PATHOLOGY | | + +-------+ + + + + + | Specimen | + + | | + + + + + + + | Performing | Address | City/State/Zipcode | Phone Number | | Organization | | | | + + + + + | [facility] DEPARTMENT | [address] [facility] | [place] [address] | | | PATHOLOGY | [address] | | | + + + + + | [facility] | [address] [facility] | [place] [address] | | | PATHOLOGY | [address] | | | + + + + + CALCIUM, IONIZED, WHOLE BLOOD (06/28/2004 2:30 PM PDT) + + + + + + | Component | Value | Ref Range | Performed | Pathologist | | | | | At | Signature | + + + + + + | KYLIE ICA, | 1.18 | 1.14 - 1.32 | [facility] | | | WHOLE BLD | | mmol/L | DEPARTMENT | | | | | | OF | | | | | | PATHOLOGY | | + + + + + + | PH, WHOLE | 7.26 | | [facility] | | | BLOOD | | | DEPARTMENT | | | | | | OF | | | | | | PATHOLOGY | | + + + + + + | CALC ICA, | 1.09 (L) | 1.14 - 1.28 | [facility] | | | WHOLE BLD | | mmol/L | DEPARTMENT | | | | | | OF | | | | | | PATHOLOGY | | + + + + + + + + | Specimen | + + | | + + + + + | Narrative | Performed At | + + + | Ionized Calcium, Whole Blood | [facility] | | | DEPARTMENT OF | | | PATHOLOGY | + + + + + + + + | Performing | Address | City/State/Zipcode | Phone Number | | Organization | | | | + + + + + | [facility] DEPARTMENT | [facility] | [place] [address] | | | PATHOLOGY | [address] | | | + + + + + | [facility] DE[facility]MENT [facility] | [address] | [place] [address] | | | PATHOLOGY | [address] | | | + + + + + BLOOD GASES, ARTERIAL (06/28/2004 2:30 PM PDT) + + + + + + | Component | Value | Ref Range | Performed | Pathologist | | | | | At | Signature | + + + + + + | PAT TEMP | 37.2 | Degree C | [facility] | | | ARTERIAL | | | DEPARTMENT | | | | | | OF | | | | | | PATHOLOGY | | + + + + + + | FIO2 | 100% | | [facility] | | | ARTERIAL | | | DEPARTMENT | | | | | | OF | | | | | | PATHOLOGY | | + + + + + + | PH ARTERIAL | 7.26 (L) | 7.37 - 7.44 | [facility] | | | | | | DEPARTMENT | | | | | | OF | | | | | | PATHOLOGY | | + + + + + + | PCO2 | 53 (H) | 32 - 43 mmHg | [facility] | | | ARTERIAL | | | DEPARTMENT | | | | | | OF | | | | | | PATHOLOGY | | + + + + + + | PO2 | 167 (H) | 72 - 104 mmHg | [facility] | | | ARTERIAL | | | DEPARTMENT | | | | | | OF | | | | | | PATHOLOGY | | + + + + + + | BASE EXCESS | -4.1 | | [facility] | | | ARTERIAL | | | DEPARTMENT | | | | | | OF | | | | | | PATHOLOGY | | + + + + + + | HCO3 | 23 | 21 - 27 mmol/L | [facility] | | | ARTERIAL | | | DEPARTMENT | | | | | | OF | | | | | | PATHOLOGY | | + + + + + + | TOTAL CO2 | 24 | 22 - 28 mmol/L | [facility] | | | ARTERIAL | | | DEPARTMENT | | | | | | OF | | | | | | PATHOLOGY | | + + + + + + | O2 SAT, | 98.7 (H) | 92.0 - 98.0 % | [facility] | | | ARTERIAL | | | DEPARTMENT | | | | | | OF | | | | | | PATHOLOGY | | + + + + + + + + | Specimen | + + | | + + + + + | Narrative | Performed At | + + + | Arterial Blood Gas pH Phoned Readback. | [facility] | | | DEPARTMENT OF | | | PATHOLOGY | + + + + + + + + | Performing | Address | City/State/Zipcode | Phone Number | | Organization | | | | + + + + + | [facility] | [address] | [place] [address] | | | PATHOLOGY | [address] | | | + + + + + | [facility] | [address] | [place] [address] | | | PATHOLOGY | [address] | | | + + + + + COMP METABOLIC SET (06/28/2004 2:30 PM PDT) + +---------+ + + + | Component | Value | Ref Range | Performed | Pathologist | | | | | At | Signature | + +---------+ + + + | GLUCOSE, | 238 (H) | 65 - 110 mg/dL | [facility] | | | PLASMA | | | DEPARTMENT | | | (LAB) | | | OF | | | | | | PATHOLOGY | | + +---------+ + + + | BUN, PLASMA | 7 | 6 - 20 mg/dL | [facility] | | | (LAB) | | | DEPARTMENT | | | | | | OF | | | | | | PATHOLOGY | | + +---------+ + + + | CREATININE | 0.7 | 0.6 - 1.1 mg/dL | [facility] | | | PLASMA | | | DEPARTMENT | | | (LAB) | | | OF | | | | | | PATHOLOGY | | + +---------+ + + + | TOTAL | 4.9 (L) | 6.1 - 7.9 g/dL | [facility] | | | PROTEIN, | | | DEPARTMENT | | | PLASMA | | | OF | | | (LAB) | | | PATHOLOGY | | + +---------+ + + + | ALBUMIN, | 2.1 (L) | 3.5 - 4.7 g/dL | [facility] | | | PLASMA | | | DEPARTMENT | | | (LAB) | | | OF | | | | | | PATHOLOGY | | + +---------+ + + + | CALCIUM, | 8.1 (L) | 8.5 - 10.5 | [facility] | | | PLASMA | | mg/dL | DEPARTMENT | | | (LAB) | | | OF | | | | | | PATHOLOGY | | + +---------+ + + + | BILIRUBIN | 1.0 | 0.3 - 1.2 mg/dL | [facility] | | | TOTAL | | | DEPARTMENT | | | | | | OF | | | | | | PATHOLOGY | | + +---------+ + + + | ALK PHOS | 170 (H) | 42 - 98 U/L | [facility] | | | | | | DEPARTMENT | | | | | | OF | | | | | | PATHOLOGY | | + +---------+ + + + | AST(SGOT) | 51 (H) | 15 - 41 U/L | [facility] | | | | | | DEPARTMENT | | | | | | OF | | | | | | PATHOLOGY | | + +---------+ + + + | SODIUM, | 139 | 136 - 145 | [facility] | | | PLASMA | | mmol/L | DEPARTMENT | | | (LAB) | | | OF | | | | | | PATHOLOGY | | + +---------+ + + + | POTASSIUM, | 4.4 | 3.5 - 5.1 | [facility] | | | PLASMA | | mmol/L | DEPARTMENT | | | (LAB) | | | OF | | | | | | PATHOLOGY | | + +---------+ + + + | CHLORIDE, | 102 | 98 - 107 mmol/L | [facility] | | | PLASMA | | | DEPARTMENT | | | (LAB) | | | OF | | | | | | PATHOLOGY | | + +---------+ + + + | TOTAL CO2, | 26 | 23 - 29 mmol/L | [facility] | | | PLASMA | | | DEPARTMENT | | | (LAB) | | | OF | | | | | | PATHOLOGY | | + +---------+ + + + | ALT (SGPT) | 42 | 13 - 48 U/L | [facility] | | | | | [...] DEPARTMENT OF | [address] | [place] [address] | | | PATHOLOGY | [address] | | | + + + + + | [facility] DEPARTMENT | [address] | [place] [address] | | | PATHOLOGY | [address] | | | + + + + + MAGNESIUM, PLASMA (06/28/2004 2:30 PM PDT) + +-------+ + + + | Component | Value | Ref Range | Performed | Pathologist | | | | | At | Signature | + +-------+ + + + | MAGNESIUM,P | 2.4 | 1.8 - 2.5 mg/dL | [facility] | | | LASMA | | | DEPARTMENT | | | | | | OF | | | | | | PATHOLOGY | | + +-------+ + + + + + | Specimen | + + | | + + + + + + + | Performing | Address | City/State/Zipcode | Phone Number | | Organization | | | | + + + + + | [facility] DEPARTMENT | [address] [facility] | [place] [address] | | | PATHOLOGY | [address] | | | + + + + + | [facility] DEPARTMENT OF | [facility] [facility] | [place] [address] | | | PATHOLOGY | [address] | | | + + + + + PHOSPHORUS, PLASMA (06/28/2004 2:30 PM PDT) + +-------+ + + + | Component | Value | Ref Range | Performed | Pathologist | | | | | At | Signature | + +-------+ + + + | PHOSPHORUS, | 4.1 | 2.4 - 4.7 mg/dL | [facility] | | | PLASMA | | | DEPARTMENT | | | (LAB) | | | OF | | | | | | PATHOLOGY | | + +-------+ + + + + + | Specimen | + + | | + + + + + + + | Performing | Address | City/State/Zipcode | Phone Number | | Organization | | | | + + + + + | [facility] DEPARTMENT OF | [address] | [place] [address] | | | PATHOLOGY | [address] | | | + + + + + | [facility] | [address] | [place] [address] | | | PATHOLOGY | [address] | | | + + + + + documented in this encounter Visit Diagnoses Not on filedocumented in this encounter"
--- OUTSIDE RECORDS SUMMARY | ~2020-01-02 | XMS | Encounter Summary ---
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 Echocardiogram on June 24, 2004, showed normal LV function with normal valves and no pericardial effusion, per report listed in chart from outside hospital in [facility]. Review of Systems: Unobtainable as the patient [...] use. She is and lives in near [facility]. Physical Exam Vital Signs: Temperature 37.2, blood [...] is stable post-exploratory laparotomy. Plan to call COLLABORATIVE TEACHER to evaluate wound site and for any [...] M.D. Jose L Joy M.D. / DOLLY [id number] / [id number] / [id number] / Electronically signed by Jose L Joy 01-06-2005 11:39:01 AM documented i n this encounter Plan of Treatment Not on filedocumented as of this encounter Visit Diagnoses Not on filedocumented in this encounter"
--- OUTSIDE RECORDS SUMMARY | ~2020-01-02 | XMS | Encounter Summary ---
Demographics + + + | Address | [address] | | | [place] [address] | + + + | Home Phone | | + + + | Preferred Language | Unknown | + + + | Marital Status | | + + + | Catholic Affiliation | 1041 | + + + | Race | Unknown | + + + | Ethnic Group | Not or | + + + Author + + + | Author | [facility] | | | and [place] | + + + | Organization | [facility] | | | [...] Team Providers + +------+ + | Care Stylist Apprentice Name | Role | Phone | + +------+ + PCP | Unavailable | + +------+ + Encounter Details +--------+ + + + + | Date | Type | Department | Care Team | Description | +--------+ + + + + | 03/26/ | Hospital | [facility] | | | | 2004 - | Encounter | MED CTR MED ONC | | | | | | [address] | | | | 03/31/ | | [place] [address] | | | | 2006 | | [phone] | | | +--------+ + + + [...] | | | | | | [place] [address] | | | | | | [phone] | | | | | | | | +--------+---------+ + + + documented as of this encounter Visit Diagnoses Not on filedocumented in this encounter"
--- OUTSIDE RECORDS SUMMARY | ~2020-01-02 | XMS | Encounter Summary ---
Demographics + + + | Address | [address] | | | [place] [address] | + + + | Home Phone | | + + + | Preferred Language | Unknown | + + + | Marital Status | | + + + | Jew Affiliation | 1041 | + + + | Race | Unknown | + + + | Ethnic Group | Not or | + + + Author + + + | Author | [facility] | | | and [place] | + + + | Organization | [facility] | | [...] Team Providers + +------+ + | Care Lithographed Plate Inspector Name | Role | Phone | + +------+ + PCP | Unavailable | + +------+ + Encounter Details +--------+ + + + + | Date | Type | Department | Care Team | Description | +--------+ + + + + | 04/27/ | Hospital | [facility] | | | | 2013 | Encounter | MED CTR GENERIC OP | | | | | | CONV DEPT [address] | | | | | | [place], | | | | | | [place] [address] | | | | | | [phone] | | | +--------+ + + + [...] | | | | | [place] [address] | | | | | | [phone] | | | | | | | | +--------+---------+ + + + documented as of this encounter Visit Diagnoses Not on filedocumented in this encounter"
--- OUTSIDE RECORDS SUMMARY | ~2020-01-02 | XMS | Clinical Summary ---
Demographics + + + | Address | [address] | | | [place] [address] | + + + | Home Phone | | + + + | Preferred Language | Unknown | + + + | Marital Status | | + + + | Spiritism Affiliation | [id number] | + + + [...] Team Providers + +------+ + | Care Health And Safety Tech Name | Role | Phone | + +------+ + | Jean Carlos Crowell PA-C | PCP | | + +------+ + Allergies + + + + + + | Active Allergy | Reactions | Severity | Noted | Comments | | | | | Date | | + + + + + + | Alendronate | Other (See | Medium | 10/19/19 | Reaction not | | | Comments), Nausea | | 14 | specified in outside | | | Only | | | medical records | + + + + + + | Alendronate Sodium | Other (See Comments) | Low | 10/19/19 | Stomach upset | | | | | 14 | | + + + + + + | Hydroxyquinolines | Other (See Comments) | Medium | 10/19/19 | "messed with | | | | | 14 | immune system" | + + + + + + | Ibuprofen | Nausea And Vomiting, | Medium | 10/19/19 | Reaction not | | | Other (See | | 14 | specified in outside | | | Comments) | | | medical records | | | | | | Reaction not | | | | | | specified in outside | | | | | | medical records | + + + + + + | Levofloxacin | Other (See Comments) | Medium | 10/19/19 | Heart racing, | | | | | 14 | tense muscles | | | | | | Reaction not | | | | | | specified in outside | | | | | | medical records | | | | | | Muscle tension | + + + + + + Medications + + + +---------+------+------+-------+ | Medication | Sig | Dispensed | Refills | Star | End | Statu | | | | | | t | Date | s | | | | | | Date | | | + + + +---------+------+------+-------+ | aspirin 81 mg EC | Take 81 mg by mouth | | 0 | | | Activ | | tablet | Daily. | | | | | e | + + + +---------+------+------+-------+ | celecoxib | Take 200 mg by mouth | | 0 | | | Activ | | (CELEBREX) 200 mg | 2 times daily. | | | | | e | | capsule | | | | | | | + + + +---------+------+------+-------+ | etodolac (LODINE) | Take 400 mg by mouth | | 0 | | | Activ | | 400 mg tablet | 2 times daily. | | | | | e | + + + +---------+------+------+-------+ | losartan (COZAAR) | Take 50 mg by mouth | | 0 | | | Activ | | 50 mg tablet | Daily. | | | | | e | + + + +---------+------+------+-------+ | simvastatin | Take 10 mg by mouth | | 0 | | | Activ | | (ZOCOR) 10 mg tablet | nightly. | | | | | e | + + + +---------+------+------+-------+ | ANGELICAUS KONGAUSTINAR | Inject 50 Units | | 0 | 07/2 | | Activ | | 100 UNIT/ML | under the skin 2 | | | 4/20 | | e | | injection (pen) | times daily. | | | 17 | | | + + + +---------+------+------+-------+ | NOVOLOG FLEXPEN | | | 0 | 07/0 | | Activ | | 100 UNIT/ML | | | | 5/20 | | e | | injection pen | | | | 17 | | | + + + +---------+------+------+-------+ | Cholecalciferol | Take by mouth. | | 0 | | | Activ | | [id number] units CAPS | | | | | | e | + + + +---------+------+------+-------+ | PARoxetine (PAXIL) | Take by mouth. | | 0 | | | Activ | | 20 mg tablet | | | | | | e | + + + +---------+------+------+-------+ | atorvaSTATin | | | 0 | 10/1 | | Activ | | (LIPITOR) 10 mg | | | | 1/20 | | e | | tablet | | | | 18 | | | + + + +---------+------+------+-------+ | folic acid 1 mg | Take 1 tablet by | | 0 | 03/0 | | Activ | | tablet | mouth daily. Take | | | 4/20 | | e | | | one tablet daily | | | 19 | | | + + + +---------+------+------+-------+ | insulin pen needle | 31 g. | | 0 | 01/0 | | Activ | | (B-D ULTRAFINE III | | | | 7/20 | | e | | SHORT PEN) 31 gauge | | | | 16 | | | | x 8 mm | | | | | | | + + + +---------+------+------+-------+ | sertraline | | | 0 | 06/0 | | Activ | | (ZOLOFT) 100 mg | | | | 1/20 | | e | | tablet | | | | 17 | | | + + + +---------+------+------+-------+ | telmisartan | Take 20 mg by mouth | | 0 | | | Activ | | (MICARDIS) 20 MG | daily. | | | | | e | | tablet | | | | | | | + + + +---------+------+------+-------+ | insulin aspart | Inject 20 Units into | | 0 | | | Activ | | (NOVOLOG) 100 | the skin 3 (three) | | | | | e | | units/mL injection | times daily before | | | | | | | | meals. | | | | | | + + + +---------+------+------+-------+ | insulin glargine | Inject 80 Units into | | 0 | | | Activ | | (LANTUS) 100 | the skin 2 (two) | | | | | e | | units/mL injection | times daily. | | | | | | | (vial) | | | | | | | + + + +---------+------+------+-------+ | levothyroxine | Take 25 mcg by mouth | | 0 | 01/ | | Activ | | (SYNTHROID) 25 mcg | daily. | | | 07/15 | | e | | tablet | | | | 16 | | | + + + +---------+------+------+-------+ | metFORMIN | Take 1,000 mg by | | 0 | | | Activ | | (GLUCOPHAGE) 1000 MG | mouth 2 (two) times | | | | | e | | tablet | daily with meals. | | | | | | + + + +---------+------+------+-------+ | methotrexate 2.5 | Take 7 tablets by | 84 | 0 | 04/2 | | Activ | | mg | mouth Once a week. | tablet | | 04/16 | | e | | tabletIndications: | Indications: | | | 20 | | | | Rheumatoid Arthritis | Rheumatoid Arthritis | | | | | | + + + +---------+------+------+-------+ | sulfaSALAzine | Take 1 tablet by | 270 | 0 | 10/26 | | Activ | | (AZULFIDINE) 500 MG | mouth 3 times daily. | tablet | | 11/14 | | e | | EC | | | | 20 | | | | tabletIndications: | | | | | | | | Rheumatoid arthritis | | | | | | | | of multiple sites | | | | | | | | with negative | | | | | | | | rheumatoid factor | | | | | | | | (HCC) | | | | | | | + + + +---------+------+------+-------+ Active Problems + + + | Problem | Noted Date | + + + | Lymph node enlargement | 10/16/2019 | + + + + + | Last Assessment & Plan: Enlarged lymph node under left | | axilla, recommend that she continue follow-up with PCP-if she | | still has concerns or questions | + + + + + | Chronic pain of right wrist | 08/09/2017 | + + + + + | Overview: Last Assessment & Plan: -history of surgical repair | | due to injury a few years ago. She cannot recall when surgery | | was or who the orthopedist was at the time.-treatment options | | discussed. Verbal and written consent given for kenalog 20 mg | | injectionRecommend ice 10-15 min per session 4-5 times per day | | for the next 2-3 days, avoid overuse or heavy lifting, may use | | brace for support at night or during the day when | | neededInstruction on post-injection careIf no improvement in | | 10-14 days, contact our office. Consider obtain R wrist x-ray and | | possible referral to orthopedist. | + + + + + | Chronic pain of right knee | 05/25/2017 | + + + + + | Overview: Last Assessment & Plan: | | Improved with PT | | Encouraged her to use cane per recommendation of PT | + + + + + | Frequent falls | 05/25/2017 | + + + | Physical deconditioning | 05/25/2017 | + + + + + | Overview: Last Assessment & Plan: -frequent falls and overall | | deconditioning.-refer to PT for further evaluation and evaluate | | for safety measures that may be necessary. | + + + + + | Rash and nonspecific skin eruption | 05/25/2017 | + + + + + | Overview: Last Assessment & Plan: | | -refer to dermatology for further evaluation and treatment. | + + + + + | Adult BMI 38.0-38.9 kg/sq m | 11/11/2016 | + + + | Numbness and tingling in right hand | 10/30/2016 | + + + | ESR raised | 12/17/2015 | + + + | High risk medication use | 12/17/2015 | + + + + + | Last Assessment & Plan: Update labs today and continue to | | monitor closely while on DMARD and/or biologic medication. | | Counseled regarding medication compliance as well as potential | | toxicities with medications such as cytopenias, liver | | abnormalities and risks for infection, and the need for routine | | blood work monitoring. | + + + + + | Primary osteoarthritis involving multiple joints | 12/17/2015 | + + + + + | Overview: Last Assessment & Plan: Continue conservative | | measuresMost likely low back pain is secondary to degenerative | | changes, although she does have a history of thoracic vertebral | | fracture in the past.Recommend that if back symptoms do not | | continue to improve or become worse in the next 10-14 days, | | contact PCP for further evaluation | + + + + + | Rheumatoid arthritis of multiple sites with negative rheumatoid | 12/17/2015 | | factor | | + + + + + | Last Assessment & Plan: Initially diagnosed with RA 2012, | | +DAYNA, +SCL-70, Neg. RF, neg centromere. 2018- x-rays H/F- | | neg.erosionsNo clinical evidence of active disease on today's | | exam. Peripheral joint symptoms have improved since she resumed | | sulfasalazineResponding well to current treatment plan. No change | | in treatment plan. Continue methotrexate 17.5 mg once a week | | and sulfasalazine EC 500 mg-1 tab in the a.m., 1000 mg-2 tabs in | | the p.m. 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 antibody positive | 12/17/2015 | + + + + + | Last Assessment & Plan: No clinical evidence of connective | | tissue disease or scleroderma today | + + + + + | Essential hypertension, benign | 03/11/2014 | + + + | Anemia, unspecified | 03/10/2014 | + + + | Thrombocytopenia, unspecified | 03/10/2014 | + + + | COPD (chronic obstructive pulmonary disease) | 02/25/2014 | + + + | DM2 (diabetes mellitus, type 2) | 02/25/2014 | + + + | Renal insufficiency syndrome | 02/25/2014 | + + + | Sepsis | 02/25/2014 | + + + | Vulvar abscess | 02/25/2014 | + + + | Thoracic back pain | 10/18/2013 | + + + | Osteoporosis | 10/18/2013 | + + + + + | Last Assessment & Plan: Last DEXA scan was November 2018 T | | score -2.8 in the right femoral neck. [facility] | | PCPKenia does report a history of thoracic spinal fracture with | | vertebroplasty, approximately greater than 5 years ago-date is | | uncertain as she cannot recallDue to a concern about a | | reoccurring spinal fracture-will update thoracic x-ray today, she | | will have this x-ray completed at [facility], her | | choice. May need MRI to confirm findings | + + + + + | Compression fracture of thoracic vertebra | 10/18/2013 | + + + | OBSTRUCTIVE SLEEP APNEA | 07/21/2010 | + + + Encounters +--------+ + + + + | Date | Type | Specialty | Care Team | Description | +--------+ + + + + | 11/12/ | Refill | Rheumatology | [place], | Medication Refill | | 2019 | | | [place] | | +--------+ + + + + | 10/15/ | Office | Rheumatology | [place], | Rheumatoid arthritis | | 2020 | Visit | | [place] | of multiple sites | | | | | | with negative | | | | | | rheumatoid factor | | | | | | ([facility]); High risk | | | | | | medication use; | | | | | | Lymph node | | | | | | enlargement | +--------+ + + + + | 10/15/ | Orders Only | | Janeen Gil | Rheumatoid arthritis | | 2020 | | | [facility] | of multiple sites | | | | | | with negative | | | | | | rheumatoid factor | | | | | | ([facility]); High risk | | | | | | medication use | +--------+ + + + + | 10/14/ | Telephone | Rheumatology | [place], | Other (Called to | | 2019 | | | [place] | conf/prereg/screen) | +--------+ + + + + from Last 3 Months Immunizations + + + + | Name | Administration Dates | Next Due | + + + + | HEP A/HEP B, 3 DOSE | 04/03/1996, 09/02/1995, 08/02/1995 | | | (ADULT) | | | + + + + | INFLUENZA PF | 12/07/2018, 01/05/2018, 01/28/2017, | | | QUAD(PED/ADOL/ADULT) | 01/14/2016 | | | ,PSKT or VIAL | | | + + + + | INFLUENZA PF | 12/16/2014, 01/17/2012 | | | TRIVALENT(PED/ADOL/A | | | | ÁNGEL) PSKT | | | + + + + | INFLUENZA QUADR | 12/14/2013 | | | W/PRES | | | | (PED/ADOL/ADULT) | | | | MULTIDOSE | | | + + + + | INFLUENZA TRIV | 12/27/2012 | | | W/PRES(PED/ADOL/ADUL | | | | T),MULTIDOSE | | | + + + + | INFLUENZA, | 06/21/2011, 11/27/2010, 01/13/2010, | | | UNSPECIFIED | 01/14/2009, 12/30/2008, 01/08/2008, | | | FORMULATION | 12/27/2006, 01/18/2006, 01/12/2005, | | | | 01/07/2004, 01/08/2003, 01/23/2002, | | | | 12/27/2000, 02/10/2000, 01/14/1998, | | | | 01/04/1997, 12/31/1992, 01/25/1992, | | | | 12/26/1990, 12/31/1988 | | + + + + | PNEUMOCOCCAL | 01/08/2003, 01/25/1992 | | | POLYSACCHARIDE | | | | 23-VALENT (PPSV23) | | | + + + + | TD, UNSPECIFIED | 12/27/2000, 12/15/1990 | | | FORMULATION | | | + + + + | TDAP, (ADOL/ADULT) | 03/01/2014, 06/21/2011, 01/01/2008 | | + + + + Family History + + +------+ + | Medical History | Relation | Name | Comments | + + +------+ + | Alcohol abuse | Father | | | + + +------+ + | Alcohol abuse | Mother | | | + + +------+ + | Arthritis | Mother | | | + + +------+ + | Cancer | Mother | | | + + +------+ + | Clotting disorder | Mother | | | + + +------+ + | Diabetes | Mother | | | + + +------+ + | Heart disease | Mother | | | + + +------+ + | Stroke | Mother | | | + + +------+ + | Cancer | Other | | grandmother | + + +------+ + + +------+--------+ + | Relation | Name | Status | Comments | + +------+--------+ + | Father | | | | + +------+--------+ + | Mother | | | | + +------+--------+ + | Other | | | | + +------+--------+ + Social History + +-------+ +--------+------+ | [...] + | Respiratory Rate | 16 | 05/25/2017 8:10 AM | | | | | PST [...] Height | 157.5 cm (5' 2") | 01/08/2019 9:17 AM | | | | | PDT | | + + + + + | Body Mass Index | 35.12 | 01/08/2019 9:17 AM | | | | | PDT | | + + + + + Plan of Treatment +--------+---------+ + + + | Date | Type | Specialty | Care Team | Description | +--------+---------+ + + + | 01/15/ | Office | Rheumatology | [place], | | | 2020 | Visit | | [place] [address] | | | | | | [address] | | | | | | [place] [address] | | | | | | [phone] | | | | | | | | +--------+---------+ + + + + + + + + | Health Maintenance | Due Date | Last | Comments | | | | Done | | + + + + + | Med Mgmt: TSH | | | | | | 7 | | | + + + + + | Medication | | | | | Management | 7 | | | + + + + + | Diabetic Eye Exam | | | | | | 5 | | | + + + + + | Diabetic Foot Exam | | | | | | 5 | | | + + + + + | Vaccine: Zoster (1 | | | | | of 2) | 7 | | | + + + + + | Hemoglobin A1c | | 02/28/20 | | | Screening | 5 | 14, | | | | | 02/26/20 | | | | | 14 | | + + + + + | Med Mgmt: HBA1C | | 02/28/20 | | | | 5 | 14, | | | | | 02/26/20 | | | | | 14 | | + + + + + | Adult Annual | | | | | Wellness Visit | 5 | | | + + + + + | Med Mgmt: Vit D | | 03/03/20 | | | | 5 | 14 | | + + + + + | Colorectal Cancer | | 03/08/20 | | | Screening (FIT) | 5 | 14 | | + + + + + | Vaccine: Influenza | | 12/08/19 | | | (#1) | 0 | 19, | | | | | 01/06/20 | | | | | 18, | | | | | 01/29/20 | | | | | 17, | | | | | Addition | | | | | al | | | | | history | | | | | exists | | + + + + + | Med Mgmt: ALT | | 10/16/19 | | | | 0 | 20, | | | | | 01/09/20 | | | | | 19, | | | | | 09/06/19 | | | | | 19, | | | | | Addition | | | | | al | | | | | history | | | | | exists | | + + + + + | Med Mgmt: AST | | 10/16/19 | | | | 0 | 20, | | | | | 01/09/20 | | | | | 19, | | | | | 09/06/19 | | | | | 19, | | | | | Addition | | | | | al | | | | | history | | | | | exists | | + + + + + | Med Mgmt: Cr | | 10/16/19 | | | | 0 | 20, | | | | | 01/09/20 | | | | | 19, | | | | | 09/06/19 | | | | | 19, | | | | | Addition | | | | | al | | | | | history | | | | | exists | | + + + + + | Med Mgmt: HCT | | 10/16/19 | | | | 0 | 20, | | | | | 01/09/20 | | | | | 19, | | | | | 09/06/19 | | | | | 19, | | | | | Addition | | | | | al | | | | | history | | | | | exists | | + + + + + | Med Mgmt: HGB | | 10/16/19 | | | | 0 | 20, | | | | | 01/09/20 | | | | | 19, | | | | | 09/06/19 | | | | | 19, | | | | | Addition | | | | | al | | | | | history | | | | | exists | | + + + + + | Med Mgmt: PLT | | 10/16/19 | | | | 0 | 20, | | | | | 01/09/20 | | | | | 19, | | | | | 09/06/19 | | | | | 19, | | | | | Addition | | | | | al | | | | | history | | | | | exists | | + + + + + | Med Mgmt: RBC | | 10/16/19 | | | | 0 | 20, | | | | | 01/09/20 | | | | | 19, | | | | | 09/06/19 | | | | | 19, | | | | | Addition | | | | | al | | | | | history | | | | | exists | | + + + + + | Med Mgmt: WBC | | 10/16/19 | | | | 0 | 20, | | | | | 01/09/20 | | | | | 19, | | | | | 09/06/19 | | | | | 19, | | | | | Addition | | | | | al | | | | | history | | | | | exists | | + + + + + | Med Mgmt: BUN | | 10/16/19 | | | | 1 | 20, | | | | | 01/09/20 | | | | | 19, | | | | | 09/06/19 | | | | | 19, | | | | | Addition | | | | | al | | | | | history | | | | | exists | | + + + + + | Med Mgmt: K | | 10/16/19 | | | | 1 | 20, | | | | | 01/09/20 | | | | | 19, | | | | | 09/06/19 | | | | | 19, | | | | | Addition | | | | | al | | | | | history | | | | | exists | | + + + + + | Med Mgmt: eGFR | | 10/16/19 | | | | 1 | 20, | | | | | 01/09/20 | | | | | 19, | | | | | 09/06/19 | | | | | 19, | | | | | Addition | | | | | al | | | | | history | | | | | exists | | + + + + + | Breast Cancer | | 06/19/19 | | | Screening | 2 | 20, | | | | | 10/26/19 | | | | | 17, | | | | | 11/18/19 | | | | | 16, | | | | | Addition | | | | | al | | | | | history | | | | | exists | | + + + + + | Vaccine: | | 03/01/20 | | | Dtap/Tdap/Td (4 - | 4 | 14, | | | Td) | | 06/21/19 | | | | | 12, | | | | | 01/01/20 | | | | | 08, | | | | | Addition | | | | | al | | | | | history | | | | | exists | | + + + + + | Vaccine: | Completed | 01/09/20 | | | Pneumococcal 19-64 | | 03, | | | | | 01/24/19 | | | | | 92 | | + + + + + | Hepatitis C | Completed | 05/30/19 | | | Screening | | 19 | | + + + + + Implants + +--------+--------+ +--------+--------+--------+ | Implanted | Type | Area | Manufacture | Device | Shelf | Model | | | | | r | | Expira | / | | | | | | Identi | tion | Serial | | | | | | fier | Date | / Lot | + +--------+--------+ +--------+--------+--------+ | Lens Tecnis Preloaded Pcb | Generi | Right: | RASHEED | | 10/08/ | [id number] | | 23.0 - [id number]: | c | Eye | MEDICAL | | 2020 | [id number] | | Qty: 1 on 11/11/2016 by | | | [employer] - | | | /[id number] | | Naseem Umanzor MD at [facility] | | | [place] | | | [id number] | | [facility] | | | | | | / | | CENTER | | | | | | | + +--------+--------+ +--------+--------+--------+ | Lens Tecnis Preloaded Pcb | Generi | Left: | RASHEED | | 10/12/ | [id number] | | 23.0 - [id number]: | c | Eye | MEDICAL | | 2020 | [id number] | | Qty: 1 on 12/09/2016 by | | | [employer] - | | | /[id number] | | Naseem Umanzor MD at [facility] | | | [place] | | | [address] | | [facility] | | | | | | / | | CENTER | | | | | | | + +--------+--------+ +--------+--------+--------+ Procedures + +--------+ + + + | [...] | | + +--------+ + + + from Last 3 Months Results Sedimentation Rate (10/16/2019 9:51 AM PDT) + [...] | [facility] | | | | Blvd;[place] [address] | | LABORATORY | | + + + + + + + + | Specimen | + + | Blood | + + + + + + + | Performing | Address | City/State/Zipcode | Phone Number | | Organization | | | | + + + + + | REFERENCE LAB | [address] [place] [address] [place] | [place] | [phone] | | [facility] | [address] | [address] | | | LABORATORY | | | | + + + + + | REFERENCE LAB | [address] [place] [address] [place] | [place] | | | [facility] | [address] | [address] | | | LABORATORY | | | [...] K/uL | LAB | | | | [facility] | | [facility] | | | | [address];[place] [address] | | LABORATORY | | + + + + + + + + | Specimen | + + | Blood | + + + + + + + | Performing | Address | City/State/Zipcode | Phone Number | | Organization | | | | + + + + + | REFERENCE LAB | [address] [place] [address] | [place], [place] | [phone] | | [facility] | [address] | [address] | | | LABORATORY | | | | + + + + + | REFERENCE LAB | [address] [place] [address] | [place], [place] | | | [facility] | [address] | [address] | | | LABORATORY | | | [...] | | [facility] | | | | Bl[address];[place] [address] | | LABORATORY | | + + + + + + + + | Specimen | + + | Blood | + + + + + + + | Performing | Address | City/State/Zipcode | Phone Number | | Organization | | | | + + + + + | REFERENCE LAB | [address] [place] [address] | [place] | [phone] | | [facility] | [address] | [address] | | | LABORATORY | | | | + + + + + | REFERENCE LAB | [address] [place] [address] | [place], [place] | | | [facility] | [address] | [address] | | | LABORATORY | | | [...] at [facility];[address] | [address] | | | | | | [address];[place] [address] | | | | | | | | | | + + + + + + + + | Specimen | + + | Blood | + + + + + + + | Performing | Address | City/State/Zipcode | Phone Number | | Organization | | | | + + + + + | REFERENCE LAB | [address] [facility] | [place] | [phone] | | [facility] | [address] | [address] | | | LABORATORY | | | | + + + + + | REFERENCE LAB | [address] | [place] | | | [facility] | [address] | [address] | | | LABORATORY | | | | + + + + + from Last 3 Months Insurance + +--------+ +--------+ +---------+--------+ | Payer | Benefi | Subscriber | Effect | Phone | Address | Type | | | t Plan | ID | steve | | | | | | / | | Dates | | | | | | Group | | | | | | + +--------+ +--------+ +---------+--------+ | BCBS | BCBS | [id number] | 03/28/19 | | | PPO | | | FEDERA | | 16-Pre | | | | | | L FEP | | sent | | | | + +--------+ +--------+ +---------+--------+ | MEDICARE | MEDICA | [id number] | | [phone] | | Medica | | | RE | | 014-Pr | 5 | | re | | | PART A | | esent | | | | | | AND B | | | | | | + +--------+ +--------+ +---------+--------+ | BCBS | BCBS | [id number] | 03/28/19 | | | PPO | | | [place]ERA | | 16-Pre | | | | | | L FEP | | sent | | | | + +--------+ +--------+ +---------+--------+ | MEDICARE | MEDICA | [id number] | 03/28/19 | [phone] | | Medica | | | RE | | 17-Pre | 5 | | re | | | PART A | | sent | | | | | | AND B | | | | | | + +--------+ +--------+ +---------+--------+ | [facility] | IHS | [id number] | | | | Indemn | | SERVICE | YELLOW | | 014-Pr | | | ity | | | HAWK | | esent | | | | + +--------+ +--------+ +---------+--------+ | [facility] | IHS | [id number] | 08/27/19 | | | Indemn | | SERVICE | YELLOW | | 14-Pre | | | ity | | | HAWK | | sent | | | | + +--------+ +--------+ +---------+--------+ + +--------+ +--------+ + + | Guarantor Name | Accoun | Relation to | Date | Phone | Billing Address | | | t Type | Patient | of | | | | | | | | | | + +--------+ +--------+ + + | Shiloh Washington | Person | Self [birth year] | [address] | | | al/Fam | | 1955 | [phone] | [place] [address] | | | desean | | | 1 (Home) | | + +--------+ +--------+ + + | Shiloh Washington | Person | Self | [birth year] | [address] | | | al/Skip | | 1956 | [phone] | [place] [address] | | | des[place] | | | 1 (Home) | | + +--------+ +--------+ + + Advance Directives + + + + + | Type | Date Recorded | Patient | Explanation | | | | Crm Coordinator | | + + + + + | Power of | 05/21/2019 8:54 | | | | | AM | | | + + + + + | Advance | 12/09/2016 9:43 | | | | Directive | AM | | | + + + + + + + + + + | Code Status | Date | Date | Comments | | | Activated | Inactivated | | + + + + + | Full Code | 12/09/2016 | 12/09/2016 | | | | 10:18 AM | 12:57 PM | | + + + + + + + + +---+ | | | | | + + + +---+ | Full Code | 11/11/2016 | 11/11/2016 | | | | 12:11 PM | 2:57 PM | | + + + +---+
--- OUTSIDE RECORDS SUMMARY | ~2020-01-02 | XMS | Encounter Summary ---
Demographics + + + | Address | [address] | | | [place] [address] | + + + | Home Phone | | + + + | Preferred Language | Unknown | + + + | Marital Status | | + + + | [employer] Affiliation | [id number] | + + + [...] Team Providers + +------+ + | Care Lifter/Driver Name | Role | Phone | + [...] | [facility] | [address] | | | | | [address] | | | | | [address] | [place] [address] | | | | | [place] [address] | | | | | | [phone] | | | +--------+ + + + [...] 2020 | Visit | | Jess Ortiz [facility] [address] | | | | | | [address] | | | | | | [place] [address] | | | | | | [phone] | | | | | | | | +--------+---------+ + + + documented as of this encounter Procedures + +--------+ + + + | Procedure Name | Priori | Date/Time | Associated Diagnosis | Comments | | | ty | | | | + +--------+ + + + | LYNDON DIGITAL | Routin | 06/25/2013 | | Results for this | | SCREENING BILATERAL | e | 12:00 AM | | procedure are in the | | | | PDT | | results section. | + +--------+ + + + documented in this encounter Results LYNDON Digital Screening Bilateral (06/25/2013 12:00 AM PDT) + + | Specimen [...]
--- OUTSIDE RECORDS SUMMARY | ~2020-01-02 | XMS | Encounter Summary ---
Demographics + + + | Address | [address] | | | [place] [address] | + + + | Home Phone | | + + + | Preferred Language | Unknown | + + + | Marital Status | | + + + | Synagogue Affiliation | 1041 | + + + [...] Team Providers + +------+ + | Care Industrial Renderer Name | Role | Phone | + +------+ + | Jean Carlos Crowell PA-C | PCP | | + +------+ + Encounter Details +--------+ + + + + | Date | Type | Department | Care Team | Description | +--------+ + + + + | 10/18/ | Orders Only | [facility] | Provider, | Other longterm | | 2019 | | SYSTEM GENERIC OP | MD [address] | (current) drug | | | | CONVERSION [address] | [address] | therapy; Rheumatoid | | | | [address] [place], [place] | [place] [address] | arthritis of | | | | [address] | | multiple sites | | | | [phone] | | without rheumatoid | | | [...] | 01/15/ | Office | Rheumatology | Trevon | | | 2019 | Visit | | [address] | | | | | | [address] | | | | | | [place] [address] | | | | | | [phone] | | | | | | | | +--------+---------+ + + + + +------+--------+ + + | Name | Type | Priori | Associated Diagnoses | Order Schedule | | | | ty | | | + +------+--------+ + + | CBC with | Lab | Routin | Other longterm | 2 Occurrences | | Differential | | e | (current) drug | starting 11/10/2018 | | | | | therapy Rheumatoid | until 05/25/2019, 1 | | | | | arthritis of | completed | | | | | multiple sites | | | | | | without rheumatoid | | | | | | factor (HCC) | | + +------+--------+ + + | Comprehensive | Lab | Routin | Other longterm | 2 Occurrences | | Metabolic Panel | | e | (current) drug | starting 11/10/2018 | | | | | therapy Rheumatoid | until 05/25/2019, 1 | | | | | arthritis of | completed | | | | | multiple sites | | | | | | without rheumatoid | | | | | | factor (HCC) | | + +------+--------+ + + documented as of this encounter Results Sedimentation Rate (05/21/2019 9:58 AM PST) + + + + + + | Component | Value | Ref Range | Performed | Pathologist | | | | | At | Signature | + + + + + + | ESR | 75 (H)Comment: Testing | 0 - 30 mm/Hr | REFERENCE | | | | performed at [facility];[address] | | LAB | | | | [facility] | | [facility] | | | | [address];[place] [address] | | LABORATORY | | + + + + + + + + | Specimen | + + | Blood | + + + + + + + | Performing | Address | City/State/Zipcode | Phone Number | | Organization | | | | + + + + + | REFERENCE LAB | [address] [facility] | [place], [place] | [phone] | | [facility] | [address] | [address] | | | LABORATORY | | | | + + + + + | REFERENCE LAB | [address] [facility] | [place], [place] | | | [facility] | Bl[address] | [address] | | | LABORATORY | | | [...] REFERENCE | | | | performed at [facility];[address] | | LAB | | | | [place] | | [facility] | | | | Blvd;[place] [address] | | LABORATORY | | + + + + + + + + | Specimen | + + | Blood | + + + + + + + | Performing | Address | City/State/Zipcode | Phone Number | | Organization | | | | + + + + + | REFERENCE LAB | [address] [place] [address] | [place], [place] | [phone] | | [facility] | Bl[address] | [address] | | | LABORATORY | | | | + + + + + | REFERENCE LAB | [address] [place] [address] | [place], [place] | | | [facility] | Bl[address]. | [address] | | | LABORATORY | | | [...] | | | | | performed at [facility];[address] | | | | | | [facility] | | | | | | Blvd;[place] [address] | | | | | | | | | | + + + + + + + + | Specimen | + + | Blood | + + + + + + + | Performing | Address | City/State/Zipcode | Phone Number | | Organization | | | | + + + + + | REFERENCE LAB | [address] | [place] | [phone] | | [facility] | Bl[address] | [address] | | | LABORATORY | | | | + + + + + | REFERENCE LAB | [address] | [place] | | | [facility] | Bl[address]. | [address] | | | LABORATORY | | | | + + + + + CBC with Differential (01/08/2019 9:51 AM PDT) [...] | | | Absolute | performed at [facility];[address] | K[address]uL | LAB | | | | [place] | | [facility] | | | | [address];[place] [address] | | LABORATORY | | + + + + + + + + | Specimen | + + | Blood | + + + + + + + | Performing | Address | City/State/Zipcode | Phone Number | | Organization | | | | + + + + + | REFERENCE LAB | [address] [facility] | [place] | [phone] | | [facility] | Bl[address]. | [address] | | | LABORATORY | | | | + + + + + | REFERENCE LAB | [address] | [place] | | | [facility] | [place] | [address] | | | LABORATORY | | | | + + + + + documented in this encounter Visit Diagnoses + + | Diagnosis | + + | Other longterm (current) drug therapy | + + | Rheumatoid arthritis of multiple sites without rheumatoid factor (HCC) Rheumatoid | | arthritis | + + documented in this encounter"
--- OUTSIDE RECORDS SUMMARY | ~2020-01-02 | XMS | Encounter Summary ---
Demographics + + + | Address | [address] | | | [place] [address] | + + + | Home Phone | | + + + | Preferred Language | Unknown | + + + | Marital Status | | + + + | Hindu Affiliation | CAT | + + + [...] Team Providers + +------+ + | Care Soft Sugar Supervisor Name | Role | Phone | + +------+ + | Kendall Ruiz MD | PCP | | + +------+ + Reason for Visit + + + | Reason | Comments | + + + | Postoperative visit | | + + + PROC - Outpatient Surgery (Routine) +--------+--------+ + + + + | Status | Reason | Specialty | Diagnoses / | Referred By | Referred To | | | | | Procedures | Contact | Contact | +--------+--------+ + + + + | Closed | | Orthopedics | Diagnoses | Ruiz, | Sary, | | | | | De | Kendall Elise, | MD Avinash | | | | | Josh's | Eastern | [address] | | | | | tenosynoviti | [facility] | [place] | | | | | s | & Fractur | [address] [place], | | | | | Procedures | [address] | [place] | | | | | REQUEST TO | [address] | [address] | | | | | SURGERY | JOSEPH, | Phone: | | | | | BUSINESS EDITOR | [place] [address] | [phone] | | | | | LA INCIS | Phone: | Fax: | | | | | TENDON | [phone] | [phone] | | | | | SHEATH,RADIA | Fax: | | | | | | L STYLOID | [phone] | | +--------+--------+ + + + + Encounter Details +--------+---------+ + + + | Date | Type | Department | Care Team | Description | +--------+---------+ + + + | 10/08/ | Office | Orthopaedics | Cecilia Wells PA | [facility] | | 2008 | Visit | Faculty at Center | [address] | Tenosynovitis | | | | for Health and | [place], [place] | (Primary Dx) | | | | Healing [address] | [address] | | | | | [address] [place] for | [phone] | | | | | Health and Healing, | | | | | | Building | | | | | | Floor [place], [place] | | | | | | [address] | | | | | | [phone] | | | +--------+---------+ + + + [...] documented as of this encounter Progress Notes Cecilia Wells PA - 01/03/2009 5:56 PM BOBShiloh Washington is a 53 y.o. female Patient of dR. Gimenez status post first extensor compartment release Here for first post op, doing well and denies fevers, chills or other issues Wound is clean and dry and sutures were removed today without issues or problems Patient sent down to OT for bracing and protocol treatment Follow up in four weeks or call sooner with issues, problems or concerns prior to that time documented in this encoun ter Plan of Treatment Not on filedocumented as of this encounter Visit Diagnoses + + | Diagnosis | + + | De Josh's tenosynovitis - Primary Radial styloid tenosynovitis | + + documented in this encounter"
--- OUTSIDE RECORDS SUMMARY | ~2020-01-02 | XMS | Encounter Summary ---
Demographics + + + | Address | [address] | | | [place] [address] | + + + | Home Phone | | + + + | Preferred Language | Unknown | + + + | Marital Status | | + + + | Taoism Affiliation | CAT | + + + [...] Team Providers + +------+ + | Care Framework Developer Name | Role | Phone | + +------+ + | Kendall Ruiz MD | PCP | | + +------+ + Encounter Details +--------+------+ + + + | Date | Type | Department | Care Team | Description | +--------+------+ + + + | 12/23/ | Lab | Laboratory at [facility] | | Other Specified | | 2008 | | [address] | | Pre-Operative | | | | [facility] | | Examination | | | | and Healing, | | | | | | [address] | | | | | | [place], [place] | | | | | | [address] | | | | | | [phone] | | | +--------+------+ + + + Social History + + [...] | BASIC METABOLIC SET | Routin | 12/23/2008 | Other Specified | Results for this | | (NA, K, CL, TCO2, | e | 4:43 PM | Pre-Operative | procedure are in the | | BUN, CR, GLU, CA) | | PDT | Examination | results section. | + +--------+ + + + | CBC ONLY | Routin | 12/23/2008 | Other Specified | Results for this | | | e | 4:43 PM | Pre-Operative | procedure are in the | | | | PDT | Examination | results section. | + +--------+ + + + | HEMOGLOBIN A1C, | Routin | 12/23/2008 | Other Specified | Results for this | | BLOOD | e | 4:43 PM | Pre-Operative | procedure are in the | | | | PDT | Examination | results section. | + +--------+ + [...] | High >7.9% RLB | | | ([address] [facility]) [facility] [address] | | | [place] [address] | | + + + + + + + + | Performing | Address | City/State/Zipcode | Phone Number | | Organization | | | | + + + + + | [facility] DEPARTMENT OF | [address] | [place] [address] | | | PATHOLOGY | [address] | | | + + + + + | [facility] DEPARTMENT OF | [address] [facility] | [place] [address] | | | PATHOLOGY | [address] [...] | + + + + + | [facility] | [address] [facility] | [place] [address] | | | PATHOLOGY | [address] | | | + + + + + | [facility] | [facility] | [place] [address] | | | PATHOLOGY | [address] [...] (H) | 60 - 99 mg/dL | [facility] | | | PLASMA [...] | | | DEPARTMENT | | | QATARI | | | OF | | | [...] | + + + + + | [facility] | [address] | [place] [address] | | | PATHOLOGY | [address] | | | + + + + + | [facility] | [address] [facility] | [facility] [address] | | | PATHOLOGY | [address] | | | + + + + + documented in this encounter Visit Diagnoses + + | Diagnosis | + + | Other specified pre-operative examination | + + documented in this encounter"
--- OUTSIDE RECORDS SUMMARY | ~2020-01-02 | XMS | Encounter Summary ---
Demographics + + + | Address | [address] | | | [place] [address] | + + + | Home Phone [...] Team Providers + +------+ + | Care Humanities Department Chair Name | Role | Phone | + [...] | | | | | | | [facility] | | | | | | [...] + + + + | 12/09/ | Anesthesia | [facility] | Adam Peralta MD | | | 2017 | Event | MED CTR OR [facility]TRA OP | [address] | | | | | [address] | [place] | | | | | [place] | [address] | | | | | [address] | | | | | | [phone] | | | +--------+ + + + + Anesthesia Record + + + + + | Procedure Name | Responsible | Anesthesia Start | Anesthesia Stop Time | | | Anesthesiologist | Time | | + + + + + | Left Cataract | Adam Peralta MD | 12/09/16 0940 | 12/09/16 1017 | | Extraction w/ Lens | | | | | Implant (Left Eye) | | | | + + + + + +----+---+ + + | Da | T | Event | Comment | | te | i | | | | | m | | | | | e | | | +----+---+ + + | 09 | 0 | | | | /1 | 8 | | | | 4/ | 3 | | | | 20 | 6 | | | | 17 | | | | +----+---+ + + | | 0 | An Start | Reassessment prior to anesthesia induction/procedure. | | | 9 | | | | | 4 | | | | | 0 | | | +----+---+ + + | | 0 | An | | | | 9 | Induction | | | | 4 | | | | | 3 | | | +----+---+ + + | | 0 | Block Start | | | | 9 | | | | | 4 | | | | | 5 | | | +----+---+ + + | | 0 | AN Block | | | | 9 | End | | | | 4 | | | | | 6 | | | +----+---+ + + | | 0 | Pre-Procedu | | | | 9 | ral Timeout | | | | 5 | Completed | | | | 3 | | | +----+---+ + + | | 0 | First | | | | 9 | Inc/Proc St | | | | 5 | | | | | 6 | | | +----+---+ + + | | 1 | an stop | | | | 0 | data | | | | 0 | | | | | 9 | | | +----+---+ + + | | 1 | An Stop | Patient handed off to recovery nurse. | | | 1 | | | | | 7 | | | +----+---+ + + +------+ | Meds | +------+ + + + | Name | Total | + + + | propofol (DIPRIVAN) injection | 100 mg | | (bolus) (20 mL) | | + + + | propofol | 41.04 mg | + + + | lidocaine 2% | 75 mg | + + + | lactated ringers (LR) infusion | 300 mL | + + + + + | Name | + + | N2O Flow Rate (L/Min) | + + | O2 Flow Rate (L/Min) | + + | Insp O2 | + + | Air Flow Rate (L/Min) | + + + + | No blood administrations on file. | + + +--------+ + + + | Type | Details | Placement | Removal | +--------+ + + + | Read | 11/11/16; 1142; Right; eye; | 11/11/16 1142 by | 06/20/18 1342 by | | only - | 06/20/18 (Completed/Removed by | William Tellez RN | User Epic | | | Utility); 1342 (Completed/Removed | | | | Incisi | by Utility) | | | | on | | | | +--------+ + + + | Periph | 12/09/16; 08; Left (by Yohana | 12/09/16 0822 by | 12/09/16 1030 by | | tony | DILCIA); Hand; [id number] | Tawanna Lobo, | Antelmo Irwin RN | | IV | catheter system; 20 gauge, 1 /2 | RN | | | | in length; intradermal injection, | | | | | distraction, tolerated well; no | | | | | longer indicated; healing within | | | | | expectations; 12/09/16; 1030 | | | +--------+ + + + | Read | 12/09/16; 1009; Left; eye; | 12/09/16 1009 by | 06/20/18 1342 by | | only - | 06/20/18 (Completed/Removed by | Jessie Pimentel RN | User Epic | | | [...] Postprocedure Evaluation - Adam Peralta MD - 12/09/2016 10:42 AM Armando nowak of this note might be different from the original. ANESTHESIA POSTANESTHESIA EVALUATION Shiloh Washington 61 y.o. female 1955 [id number] Procedure(s) Left Cataract Extraction w/ Lens Implant (Left Eye) Cooperates? Yes Mental Status Performs simple tasks. Respiratory Satisfactory - Airway patent (self maintained). Cardiovascular Satisfactory - Blood pressure and heart rate acceptable Temperature Satisfactory Pain Satisfactory N/V Control Satisfactory Hydration Satisfactory - No signs of dehydration Complications None apparent Vitals: 12/09/16 0721 12/09/16 1016 12/09/16 1030 BP: 131/58 108/49 108/65 Pulse: 86 74 82 Temp: 36.3 C (97.3 F) 36.2 C (97.2 F) Resp: 18 16 14 SpO2: 98% 98% 98% Electronically signed by Adam Peralta MD 12/09/2016 10:42 [facility] Adam Peralta MD at 12/09 10:43 AM PDTAnesthesia Preprocedure Evaluation - Adam Peralta MD - 12/09/2016 8:34 AM PDT ANESTHESIA PREANESTHESIA EVALUATION Shiloh Washington 61 y.o. female 1955 [id number] Procedure(s): Left Cataract Extraction w/ Lens Implant (Left Eye) Medical history, anesthesia, medications, allergy, NPO status verified histories reviewed. Review of Systems / Med History Pulmonary No acute pulmonary concerns. Psychology Negative except where noted below. Physical Exam Airway MP I, TM >3 FB, Mouth opening >2 FB. Neck: full ROM, extends >30 degrees. Jaw protrusi on normal. Dental Grossly normal except where noted below.; CV Rhythm regular. Rate Normal. (-) murmur. Pulm Clear to auscultation bilaterally. Neuro Grossly normal. Anesthesia Plan ASA 3 Type: MAC. Induction: [...] PL | | | | | | [place] [address] | | | | | | [phone] | | | | | | | [...] 2% injection | Given | 12/10/19 | 75 mg | | | | Intravenous, PRN, Starting Sydney | | 17 9:43 | | | | | 12/09/16 at 0943, Anesthesia | | AM PDT | | | | | Intra-op | | | | | | + +--------+ +-------+------+------+ +---+---+ | | | +---+---+ + +-------+ +-------+---+---+ | propofol (DIPRIVAN) injection | Given | 12/10/19 | 50 mg | | | | Intravenous, PRN, Starting [place] | | 17 9:44 | | | | | 12/09/16 at 0943, Anesthesia | | AM PDT | | | | | Intra-op | | | | | | + +-------+ +-------+---+---+ +-------+ +-------+---+---+ | Given | 12/10/19 | 50 mg | | | | | 17 9:43 | | | | | | AM PDT | | | | +-------+ +-------+---+---+ +---+---+ | | | +---+---+ + + + + +-------+---+ | propofol (DIPRIVAN) injection | Rate/Dos | 12/10/19 | 25 | 13.7 | | | Intravenous, CONTINUOUS PRN, | e Change | 17 9:56 | mcg/kg/m | mL/hr | | | Starting [facility] 12/09/16 at 0949, | | AM PDT | in | | | | Anesthesia Intra-op | | | | | | + + + + +-------+---+ +---------+ + +-------+---+ | New Bag | 12/10/19 | 50 | 27.4 | | | | 17 9:49 | mcg/kg/m | mL/hr | | | | AM PDT | in | | | +---------+ + +-------+---+ +---+---+ | | | +---+---+ documented in this encounter"
--- OUTSIDE RECORDS SUMMARY | ~2020-01-02 | XMS | Encounter Summary ---
Demographics + + + | Address | [address] | | | [place] [address] | + + + | Home Phone | | + + + | Preferred Language | Unknown | + + + | Marital Status | | + + + | Nondenominational Affiliation | 1041 | + + + | Race | Unknown | + + + | Ethnic Group | Not or | + + + Author + + + | Author | [facility] | | | and [place] | + + + | Organization | [facility] | | | [...] Team Providers + +------+ + | Care Custom Feed Mill Operator Name | Role | Phone | + +------+ + | Jean Carlos Crowell PA-C | PCP | | + +------+ + Encounter Details +--------+ + + + + | Date | Type | Department | Care Team | Description | +--------+ + + + + | 12/ | Hospital | [facility] | Conversion | Pain | | 2018 | Encounter | CONVERSION [address] | Transaction, | | | | | [address] | Provider Unknown | | | | | [place], [place] | [phone] | | | | | [address] | | | | | | [phone] | | | +--------+ + + + [...] | | 0 | | | | [address] units CAPS | | | | | [...] 2019 | Visit | | [address] | | | | | | [address] | | | | | | [place] [address] | | | | | | [phone] | | | | | | | | +--------+---------+ + + + documented as of this encounter Procedures + +--------+ + + + | Procedure Name | Priori | Date/Time | Associated Diagnosis | Comments | | | ty | | | | + +--------+ + + + | XR HAND LEFT 3 + VW | Routin | 02/03/2018 | | Results for this | | | e | 1:38 AM | | procedure are in the | | | | PST | | results section. | + +--------+ + + + documented in this encounter Results XR Hand Left 3 + Vw (02/03/2018 1:38 AM [...]
--- OUTSIDE RECORDS SUMMARY | ~2020-01-02 | XMS | Encounter Summary ---
Demographics + + + | Address | [address] | | | [place] [address] | + + + | Home Phone | | + + + | Preferred Language | Unknown | + + + | Marital Status | | + + + | Baptist Affiliation | 1041 | + + + [...] Team Providers + +------+ + | Care Silverware Buffing Machine Operator Name | Role | Phone [...] | | | | | | | [place] [facility] | | | | | | [...] Description | +--------+---------+ + + + | 11/11/ | Surgery | [facility] | Lyubov Howe, | Right Cataract | | 2017 | | MED CTR OR INTRA OP | [address] | Extraction w/ Lens | | | | [address] | [place] | Implant | | | | [place] | [address] | | | | | [address] | | | | | | [phone] | | | +--------+---------+ + + + [...] | | 0 | | | | [address] units CAPS | | | | | [...] encounter H&P Notes Lyubov Howe MD - 11/11/2016 10:44 AM PDTSURGICAL INTERIM [...] obtained. Electronically signed by: Lyubov Howe MD, 11/11/2016 10:44 [facility] Lyubov Howe MD at 10:44 AM PDTLyubov Howe MD - 11/05/2016 5:40 PM PDT [address] [address] HISTORY AND PHYSICAL LYUBOV HOWE MD Patient: ANA ROSA [place] Admitting: LYUBOV HOWE MR #: [id number] LOC: PT TYPE: Adm Date: : 1955 [...] and supplemented by retr obulbar block. LYUBOV HOWE MD Dictated by LYUBOV HOWE MD 11/05/2016 17:40:54 Transcribed on 11/05/2016 18:03:49 by [email or web address] job# [id number] Confirmation #: [id number] cc: JEAN CARLOS TORO PAC documented in this encounter Miscellaneous Notes Op Note - Lyubov Howe MD - 11/11/2016 1:33 PM PDT [address] [id number] OPERATIVE REPORT LYUBOV HOWE MD Patient: ANA ROSA [place] Admitting: LYUBOV Elise CARLEY MR #: [id number] LOC: PT TYPE: Adm Date: 11/11/2016 : 1955 DATE: 11/11/2016 DATE OF PROCEDURE: 11/11/2016 PREOPERATIVE DIAGNOSIS: Visually significant cataract of the right eye. POSTOPERATIVE DIAGNOSIS: Visually significant cataract of the right eye. NAME OF PROCEDURE: Extracapsular cataract extraction using phacoemulsification and implan tation of an intraocular lens, right eye. SURGEON: Lyubov Howe MD ANESTHESIA: Monitored [...] move the lens cortex, and then gently belizean the capsular bag. Provisc was then used [...] HOWE MD Dictated by LYUBOV HOWE MD 11/11/2016 13:33:13 Transcribed on 11/11/2016 14:11:19 by [email or web address] job# [id number] Confirmation #: [id number] cc: [facility] rief Op Note - Edw Lyubov lomas MD - 11/11/2016 12:02 PM PDT Brief Operative Note Ana Rosa Washington 61 y.o. female 1955 [id number] Proc. Date 11/11/2016 Preop Dx Age-related nuclear cataract of right eye [H25.11] Postop Dx same Procedure Right Cataract Extraction w/ Lens Implant (Right) Anesthesia Monitored anesthesia care supplemented by a retrobulbar block Surgeon Lyubov Howe MD - Primary Commercial Illustrator EBL Minimal Findings Findings consistent with scheduled procedure. No other abnormalities found. Complications none Specimens * No specimens in log * Drains Electronically signed by: Lyubov Howe MD 11/11/2016 12:02 [facility] Lyubov Howe MD at 12:02 PM PDTdocumented in this [...] [address] | | | | | | [place] [address] | | | | | | [phone] | | | | | | | [...] | | | POC | | | [address] | | [...] | [address] | [place] | [phone] | | [facility] | | [address] | | | - LABORATORY | | | | + + + + + documented in this encounter Visit Diagnoses + + | Diagnosis | + + | Age-related nuclear cataract of right eye Senile nuclear sclerosis | + + [...] | | | | First dose on [facility] 11/11/16 at | | | | [...] | balanced salts sterile | Given | 11/12/19 | 1 | | Surgical | | ophthalmic irrigation solution | | 17 11:37 | Applicat | | Site | | PRN, Starting [facility] 11/11/16 at | | AM PDT | ion | | | | 1137, Intra-op | | | | | | + +-------+ + +---+ + +---+---+ | | | +---+---+ + +-------+ +------+---+---+ | betamethasone (CELESTONE | Given | 11/12/19 | 3 mg | | | | SOLUSPAN) injection PRN, | | 17 11:36 | | | | | Starting [place] 11/11/16 at 1136, | | AM PDT | | | | | Intra-op | | | | | | + +-------+ +------+---+---+ +---+---+ | | | +---+---+ + +-------+ +---------+---+ + | ceFAZolin (ANCEF, KEFZOL) | Given | 11/12/19 | 12.5 mg | | Surgical | | injection PRN, Starting Tue | | 17 11:38 | | | Site | | 11/11/16 at 1138, Intra-op | | AM PDT | | [...] | | | | Starting [facility] 11/11/16 at 1008, For | | [...] EPINEPHrine 1 mg/mL injection | Given | 11/12/19 | 0.4 mg | | Other | | PRN, Starting [place] 11/11/16 at | | 17 11:38 | | | (Comment | | 1138, Intra-op | | AM PDT | | | ) | + +-------+ +--------+---+ + +---+---+ | [...] | | +---+---+ + +-------+ +-------+---+---+ | hyaluronate & chondroitin | Given | 11/12/19 | 1 kit | | | | hyaluronate (DUOVISC) intraocular | | 17 11:43 | | | | | kit PRN, Starting [place] 11/11/16 | | AM PDT | | | | | at 1143, Intra-op | | | | | | + +-------+ +-------+---+---+ + +---+ | | | + +---+ [...] 2% injection | Given | 11/12/19 | 5 mLs | | Surgical | | PRN, Starting [place] 11/11/16 at | | 17 11:44 | | | Site | | 1144, Intra-op | | AM PDT | | [...] | | | | Starting [facility] 11/11/16 at 1008, For | | [...] +---+---+ | | | +---+---+ + +-------+ +---------+---+---+ | povidone-iodine 5 % ophthalmic | Given | 11/12/19 | 2 drops | | | | solution PRN, Starting [place] | | 17 11:44 | | | | | 11/11/16 at 1144, Intra-op | | AM PDT | | | | + +-------+ +---------+---+---+ +---+---+ | | | +---+---+ + +-------+ [...] | | | | Starting [facility] 11/11/16 at 1008, For | | [...] | | | | Starting [facility] 11/11/16 at 1008, For | | [...]
--- OUTSIDE RECORDS SUMMARY | ~2020-01-02 | XMS | Encounter Summary ---
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 [address] | | | | | | [address] | [place] | | | | | | [place] [address] | [place] | | | | | | Phone: | [phone] | | | | | | [phone] | Phone: | | | | | | Fax: | [phone] | | | | | | [phone] | Fax: | | | | | | | [phone] | +--------+--------+ + + + + Encounter Details +--------+---------+ + + + | Date | Type | Department | Care Team | Description | +--------+---------+ + + + | 01/08/ | Office | [facility] | Trevon, | Rheumatoid arthritis | | 2019 | Visit | RHEUMATOLOGY [address] | Jess Ortiz [employer] [address] | of multiple sites | | | | [address] | [address] | with negative | | | | [place] | [place] [address] | rheumatoid factor | | | | [address] | [phone] | (HCC) (Primary Dx); | | | | [phone] | | High risk medication | | | | | | use; Compression | | | | | | fracture of thoracic | | | | | | vertebra, | | | | | | unspecified thoracic | | | | | | vertebral level, | | | | | | sequela; Chronic | | | | | | right-sided thoracic | | | | | | back pain; | | | | | | Osteoporosis, | | | | | | unspecified | | | | | | osteoporosis type, | | | | | | unspecified | | | | | | pathological | | | | | | fracture presence | +--------+---------+ + + + Social History [...] + + + | Blood Pressure | 137/79 | 01/08/2019 9:17 AM | | | | | PDT | | + + + + + | Pulse | 79 | 01/08/2019 9:17 AM | | | | | PDT | | + + + + + | Temperature | 36.6 C (97.8 F) | 01/08/2019 9:17 AM | | | [...] Weight | 91.6 kg (202 lb) | 01/08/2019 9:17 AM | | | | | PDT | | + + + + + | Height | 157.5 cm (5' 2") | 01/08/2019 9:17 AM | | | | | PDT | | + + + + + | Body Mass Index | 36.95 | 01/08/2019 9:17 AM | | | | | PDT | | + + + + + documented in this encounter Patient Instructions Patient Instructions Patti Richardson, Incinerator Plant General Supervisor - 01/08/2019 9:40 AM PDTWe hope that you have experienced exceptional care today and that you found our service to be courte ous and helpful. If you have any questions you can send us a message/request using [employer] or call our o ffice at [phone]. To reach Patti FOSTER type extension [phone]. If you are unable to reach a nurse during clinic hours, please leave a detailed message. We check our messages often and return calls in a timely manner during clinic hours. Medication refills- please contact your pharmacy first Orders for labs or imaging: Please remember that Jess will only call you if something i s of concern AND needs to be addressed, otherwise results will be discussed at your next of fice visit. You can also look at your results on [employer]. If you are experiencing an emergency, please call 911 Update x-rays of your upper back (thoracic spine) Continue sulfasalazine 1 tab am and 2 tabs PM and methotrexate 5 tabs once a weekElectronic ally signed by MALINDA Corbett at 01/08/2019 9:43 AM PDT documented in this encounter Progress Notes Jess Lester ARNP - 01/08/2019 9:40 AM PDTFormatting of this note might be [...] 2017, CXR 2013 - neg HPI Last visit:09/05/2018 Changes in overall health since last visit: Using copy from DEXA scan from November 28 9 at [facility], T score (-2.8)-right femoral neck. She is now on bisphosphon ate per recommendation of PCP. Recall, she does have a history of thoracic spinal fracture, greater than 5 years ago (she cannot recall exact date), and she did undergo vertebroplasty , "cement from my spine)-she cannot recall this date either Main Concern: RA-main concern today is joint pain affecting shoulders hands and reports a b urning sensation in the thoracic spine just below right scapula. Back symptoms have been pr esent for 2 to 3 months, gradually getting worse, denies injury or trauma. She states that this burning sensation is approximately the size of a softball, but varies in severity throu ghout the day. She did discuss this with her PCP. Denies joint swelling, AM stiffness > 30 minutes, fevers, illness, infection, rashes, oral ulcers, chest pain, SOB or abdominal pain Location: Hands shoulders and thoracic spine-just below the right scapula Quality: Thoracic spine reports a burning sensation, all other areas are a dull ache Severity: moderate Duration: Hands and shoulders are chronic and it intermittent, thoracic spine gradually get ting worse in the last 2 to 3 months Timing:intermittent Aggravated by:activity Relieved by:rest Tried and failed oral DMARDs include: Plaquenil (Pt reports allergy)., Arava( diarrhea, in fection) MTX was avoided since she reported SOB. Tried and failed biologic DMARDs include: none PMH - Dm type 2, GERD, osteoporosis (follows up with PCP, could not tolerate fosamax) , TAXI PROPRIETOR D, MACIEL, ?FMS Current medications:SSZ 1.5 g daily, Methotrexate 12.5mg once per week, FA 1 mg QD The following portions [...] surgery 12/11 5 pins put in Scleroderma ([facility]) Sleep apnea no CPAP Sleep apnea no CPAP Thoracic back pain 10/18/2013 Thyroid disorder Vitamin D deficiency 137 79 Review of Systems Constitutional: Negative for fatigue and fever. HENT: Negative for mouth sores. Eyes: Negative for pain and redness. Respiratory: Negative for cough and shortness of breath. Cardiovascular: Negative for chest pain. Gastrointestinal: Negative for abdominal pain and blood in stool. Genitourinary: Negative for dysuria and hematuria. Musculoskeletal: Positive for arthralgias (shoulders, fingers) and back pain. Negative for joint swelling. Skin: Positive for rash (face, arm and knees). Neurological: Negative for numbness and headaches. Psychiatric/Behavioral: The patient is not nervous/anxious. Jess Valentine, reviewed the above ROS, all other systems are reviewed and nega tive Objective: Physical Exam Constitutional: She is oriented to person, place, and time. She appears well-developed and well-nourished. HENT: Head: Normocephalic. Mouth/Throat: Oropharynx is clear and moist. Eyes: Pupils are equal, round, and reactive to light. Cardiovascular: Normal rate, regular rhythm and normal heart sounds. Pulmonary/Chest: Effort normal and breath sounds normal. Musculoskeletal: Normal range of motion. Musculoskeletal examination of the RIGHT and LEFT upper extremity, RIGHT and LEFT lower ext remity, spine, ribs ,pelvis ,head and neck was performed See homonculus Musculoskeletal examination reveals chronic rheumatoid changes with MCP subluxation and uln ar deviation and forefoot deformities Degenerative changes in the hands and feet Posture is kyphotic, decreased range of motion in the thoracic and lumbar spine with forwar d flexion and extension, able to reach to about her knees, decreased range of motion with la teral flexion and rotation There is tenderness in the thoracic spine just to the right of the spine below the right sc apula Neurological: She is alert and oriented to person, place, and time. Skin: Skin is warm, dry and intact. Psychiatric: She has a normal mood and affect. Her behavior is normal. ARMENDARIZ-28 (ESR): 3.71 (Moderate disease activity) I Patti FOSTER am personally using the [employer] tool during [facility] patient exam. Labs reviewed in [facility] --09/05/2018 2019 hep b/c neg. 09/11 chest xray- nodule in L upper lobe- unchanged Reviewed chart notes, labs and imaging form other provider(s) since the last visit. Assessment and Plan: Visit Diagnoses and Associated Orders: Rheumatoid arthritis of multiple sites with negative rheumatoid factor (HCC) (Primary) Assessment & Plan: Initially diagnosed with RA 2012, +DAYNA, +SCL-70, Neg. RF, neg centromere. 2018- x-rays H/F- neg.erosions No clinical evidence of active RA, inflammatory markers are active, ARMENDARIZ score moderate dise ase activity At this time no changes in the plan of care Continue sulfasalazine 1.5 g every day and methotrexate 12.5 mg once a week Return to clinic in 3 to 4 months Orders: - XR Thoracic Spine 4 + Vw; Future; Expected date: 01/08/2019 - C-Reactive Protein; Future High risk medication use Overview: Last Assessment & Plan: Update labs today and continue to monitor closely while on DMARD and/or biologic medication . Counseled regarding medication compliance as well as potential toxicities with medication s such as cytopenias, liver abnormalities and risks for infection, and the need for routine blood work monitoring. Orders: - C-Reactive Protein; Future Compression fracture of thoracic vertebra, unspecified thoracic vertebral level, sequela - XR Thoracic Spine 4 + Vw; Future; Expected date: 01/08/2019 Chronic right-sided thoracic back pain Osteoporosis, unspecified osteoporosis type, unspecified pathological fracture presence Assessment & Plan: Last DEXA scan was November 2018 T score -2.8 in the right femoral neck. DEXA scan was co mpleted at [facility] She is now on monthly bisphosphonate per PCP She does report a history of thoracic spinal fracture with vertebroplasty, approximately gr eater than 5 years ago-date is uncertain as she cannot recall Due to a concern about a reoccurring spinal fracture-will update thoracic x-ray today, she will have this x-ray completed at [facility], her choice. May need MRI to con firm findings Other orders - methotrexate 2.5 mg tablet; Take 5 tablets by mouth once a week. Indications: Rheuma toid Arthritis Dispense: 60 tablet; Refill: 0 - sulfaSALAzine (AZULFIDINE) 500 mg tablet; Take 1 tablet by mouth 3 (three) times markus y. Dispense: 270 tablet; Refill: 0 Risks and benefits of a treatment plan were explained to patient. Patient will follow up with their primary care physician in regards to non-rheumatological symptoms listed under review of systems. Patient was advised to contact our office if there are any change in their symptoms. This document has been prepared with [employer] recognition system. The possibility of "s ound alike" product scientist errors, and additions, or deletions may occur. If there is any que stion with respect to clarity of the message being conveyed, please contact me directly for clarification. documented in this encounter Miscellaneous Notes Assessment & Plan Note - Jess Lester ARNP - 01/08/2019 11:30 AM PDTAssociated Pr oblem(s): OsteoporosisLast DEXA scan was November 2018 T score -2.8 in the right femoral ne ck. DEXA scan was completed at [facility] She is now on monthly bisphosphonate per PCP She does report a history of thoracic spinal fracture with vertebroplasty, approximately gr eater than 5 years ago-date is uncertain as she cannot recall Due to a concern about a reoccurring spinal fracture-will update thoracic x-ray today, she will have this x-ray completed at [facility], her choice. May need MRI to con firm findings ssessment & Plan Note - Jess Lester ARNP - 01/08/2019 11:29 AM PDTAssociated Prob arvind(s): Rheumatoid arthritis of multiple sites with negative rheumatoid factor (HCC)Initiall y diagnosed with RA 2012, +DAYNA, +SCL-70, Neg. RF, neg centromere. 2018- x-rays H/F- neg.eros ions No clinical evidence of active RA, inflammatory markers are active, ARMENDARIZ score moderate dise ase activity At this time no changes in the plan of care Continue sulfasalazine 1.5 g every day and methotrexate 12.5 mg once a week Return to clinic in 3 to 4 months documented in this [...] | | | | | [place] [address] | | | | | | [phone] | | | | | | | | +--------+---------+ + + + + +---------+--------+ + + | Name | Type | Priori | Associated Diagnoses | Order Schedule | | | | ty | | | + +---------+--------+ + + | XR Thoracic Spine 4 | Imaging | Routin | Rheumatoid | Expected: | | + Vw | | e | arthritis of | 01/08/2019, Expires: | | | | | multiple sites with | 01/09/2020 | | | | | negative rheumatoid | | | | | | factor (HCC) | | | | | | Compression fracture | | | | | | of thoracic | | | | | | vertebra, | | | | | | unspecified thoracic | | | | | | vertebral level, | | | | | | sequela | | + +---------+--------+ + + documented as of this encounter Results C-Reactive Protein (01/08/2019 9:51 AM PDT) + + + + + + | Component | Value | Ref Range | Performed | Pathologist | | | | | At | Signature | + + + + + + | CRP | 3.1 (H)Comment: Testing | <0.5 mg/dL | REFERENCE | | | | performed at [facility];[address] | | LAB | | | | [place] | | [facility] [address] | [address];[place] [address] | | LABORATORY | | + + + + + + + + | Specimen | + + | Blood | + + + + + + + | Performing | Address | City/State/Zipcode | Phone Number | | Organization | | | | + + + + + | REFERENCE LAB | [address] [facility] | [place] | [phone] | | [facility] [address] | [address] | | | LABORATORY | | | | + + + + + | REFERENCE LAB | [address] | [place] | | | [facility] | [address] | [address] | | | LABORATORY | | | | + + + + + documented in this encounter Visit Diagnoses + + | Diagnosis | + + | Rheumatoid arthritis of multiple sites with negative rheumatoid factor (HCC) - Primary | + + | High risk medication use Encounter for long-term (current) use of other medications | + + | Compression fracture of thoracic vertebra, unspecified thoracic vertebral level, | | sequela | + + | Chronic right-sided thoracic back pain | + + | Osteoporosis, unspecified osteoporosis type, unspecified pathological fracture | | presence | + + documented in this encounter
--- OUTSIDE RECORDS SUMMARY | ~2020-01-02 | XMS | Encounter Summary ---
Demographics + + + | Address | [address] | | | [place] [address] | + + + | Home Phone | | + + + | Preferred Language | Unknown | + + + | Marital Status | | + + + | Sikh Affiliation | 1041 | + + + | Race | Unknown | + + + | Ethnic Group | Not or | + + + Author + + + | Author | [facility] | | | and [place] | + + + | Organization | [facility] | | [...] Team Providers + +------+ + | Care Electroencephalograph Technician Name | Role | Phone | + +------+ + PCP | Unavailable | + +------+ + Encounter Details +--------+ + + + + | Date | Type | Department | Care Team | Description | +--------+ + + + + | 04/26/ | Hospital | [facility] | | | | 2001 | Encounter | MED CTR GENERIC OP | | | | | | CONV DEPT [address] | | | | | | [place], | | | | | | [place] [address] | | | | | | [phone] | | | +--------+ + + + [...] | | | | | [place] [address] | | | | | | [phone] | | | | | | | | +--------+---------+ + + + documented as of this encounter Visit Diagnoses Not on filedocumented in this encounter"
--- OUTSIDE RECORDS SUMMARY | ~2020-01-02 | XMS | Encounter Summary ---
Demographics + + + | Address | [address] | | | [place] [address] | + + + | Home Phone | | + + + | Preferred Language | Unknown | + + + | Marital Status | | + + + | Yazidi Affiliation | CAT | + + + | Race | or | + + + | Ethnic Group | Not or | + + + Author + + + | Author | [facility] | + + + | Organization | [facility] | + + + | Address | Unknown | + + + | Phone | Unavailable | + + + Support + + +---------+ + | Name | Relationship | Address | Phone | + + +---------+ + | Giacomo Washington | ECON | Unknown | | + + +---------+ + Care Team Providers + +------+ + | Care Electrophysiology Scientist Name | Role | Phone | + +------+ + | Kendall Ruiz MD | PCP | | + +------+ + Reason for Referral PROC - Outpatient Surgery (Routine) +--------+--------+ + + + + | Status | Reason | Specialty | Diagnoses / | Referred By | Referred To | | | | | Procedures | Contact | Contact | +--------+--------+ + + + + | Closed | | Orthopedics | Diagnoses | Joseph | Sary, | | | | | De | Kendall Elise, | MD Danita | | | | | Jed | MD Pantoja | [address] [facility] | | | | | tenosynoviti | [facility] | [facility] | | | | | s | & Al[address] | [address] [place], | | | | | Procedures | [address] | [place] | | | | | REQUEST TO | [place] | [address] | | | | | SURGERY | [place], | Phone: | | | | | [employer] INFORMATION OFFICER | [place] [address] | [phone] | | | | | [place] INCIS | Phone: | Fax: | | | | | TENDON | [phone] | [phone] | | | | | SHEATH,RADIA | Fax: | | | | | | L STYLOID | [phone] | | +--------+--------+ + + + + Reason for Visit + + + | Reason | Comments | + + + | New patient | | | consultation | | + + + Office Visit - E/M Services (Routine) +--------+--------+ + + + + | Status | Reason | Specialty | Diagnoses / | Referred By | Referred To | | | | | Procedures | Contact | Contact | +--------+--------+ + + + + | Closed | | Orthopedics | Diagnoses | Ruiz, | Sary, | | | | | Wrist pain | Kendall Elise, | MD Danita | | | | | R WRIST | MD Pantoja | [address] | | | | | PAIN/FX? | [facility] | [place] | | | | | | & Fractur | [address] [place], | | | | | | [address] | [place] | | | | | | [address] | [address] | | | | | | [place], | Phone: | | | | | | [place] [address] | [phone] | | | | | | Phone: | Fax: | | | | | | [phone] | [phone] | | | | | | Fax: | | | | | | | [phone] | | +--------+--------+ + + + + Encounter Details +--------+---------+ + + + | Date | Type | Department | Care Team | Description | +--------+---------+ + + + | 11/14/ | Office | Orthopaedics | Danita Okeefe MD | Wrist Pain (Primary | | 2008 | Visit | [facility] | [address] | Dx); Tenosynovitis, | | | | for Health and | [facility] [address] | de Quervain; Distal | | | | Healing [address] | [place], [place] | Radius Fracture; | | | | [facility] for | [address] | Triangular | | | | Health and Healing, | [phone] | Fibrocartilage | | | | Building | | Complex Tear; De | | | | Floor [place], [place] | | Quervain's | | | | [address] | | Tenosynovitis | | | | [phone] | | | +--------+---------+ + + + [...] + + + | Blood Pressure | - | - | | + + + + + | Pulse | - | - | | + [...] + + + + | Weight | 98.4 kg (217 lb) | 11/14/2008 11:28 AM | | | | | PDT | | + + + + + | Height | 157.5 cm (5' 2") | 11/14/2008 11:28 AM | | | | | PDT | | + + + + + | Body Mass Index | 39.69 | 11/14/2008 11:28 AM | | | | | PDT | | + + + + + documented in this encounter Progress Notes Love Lobo - 12/09/2008 1:00 PM PDTAddended by: LOVE LOBO on: 12/09/2008 1:00 PM Modules accepted: Danita Ramos MD - 12/08/2008 9:06 PM PDTFormatting of th is note might be different from the original. HPI: Shiloh Washington is a 53 y.o. RHD female with a past history of diabetes mellitus, seen i n consultation and referred by Kendall Ruiz MD. The problem started 01/02/08 when she fra ctured her R wrist after a fall. This was managed in a cast and was noted to have healed. Since that time she has had persistent ulnar-sided wrist pain which has been managed with va rious braces, with some improvement in her symptoms. Today she primarily has pain to the do rsoradial R wrist which was managed with a steroid injection 1 month ago, without improvemen t. Pain is a 8/10. The ulnar-sided wrist pain is improving, but is significant on the dors oradial side.. It is worse with palpation of the affected areas and with movement of the wr ist and improves with rest. She has not used a thumb spica or short opponens splint, althou gh she has tried cock-up wrist splints without improvement. She has weakness to the wrist w hich she associates with her pain and she denies numbness in the area. . Filed Vitals: 11/14/2008 11:28 AM Height: 1.575 m (5' 2") Weight: 98.431 kg (217 lb) PainSc: 04 - Moderate Body mass index is 39.69 kg/(m^2). Past Medical History Diagnosis Date DM w/o Complication Type II No past surgical history on file. No current outpatient prescriptions on file prior to encounter. No Known Allergies Fam: Non-contributory History Social History Marital Status: Spouse Name: N/A Number of Children: N/A Years of Education: N/A Occupational History Not on file. Social History Main Topics Tobacco Use: Not on file Alcohol Use: Not on file Drug Use: Not on file Sexually Active: Not on file Other Topics Concern Not on file Social History Narrative No narrative on file REVIEW OF SYSTEMS: Intake form was reviewed and pertinent positives are listed on this for m PHYSICAL EXAMINATION: Well developed, well nourished female Appears stated age Patient sitting comfortably, no acute distress Awake, alert, oriented x 3, interactive and appropriate NCAT, PERRL Neck demonstates full ROM without pain Skin demonstrates no erythema, cellulitis, rashes, or streaking except as noted below No peripheral edema in bilateral lower extremities except where noted below +2 radial and ulnar pulses at wrist, regular pulse < 2 sec cap refill at fingertips bilaterally Median, ulnar, radial dermatomes intact to light touch bilaterally except where noted below Moves all extremities easily bilaterally except where noted below ROM of the elbow hand, wrist, and fingers is full bilaterally except where noted below R Wrist: Flexion to 40 degrees passively and actively + Finklestein's test with tenderness to palpation over the first dorsal compartment. Mildly + Fovea sign No DRUJ instability noted IMAGING/DIAGNOSTIC STUDIES: XR [facility] 11/14/08: 3 view ordered and reviewed. Old, healed di stal radius fracture noted, with approx. 10 degrees of dorsal tilt. 1 mm ulnar positive aayush iance noted. MRI Report, [facility], 04/08/08 and 05/17/08 reviewed: Small TFCC tear noted. IMPRESSION/PLAN: This patient present with a healed right distal radius fracture with loss of volar tilt; right DeQuervain's tenosynovitis and a small right triangular fibrocartilage complex tear. We discussed or findings with the patient. We discussed her XR findings to include the los s of volar tilt and the positive ulnar variance and its potential long-term risk of arthriti s. Given her current symptoms over the first dorsal compartment, her primary pain symptoms seem to be associated with her DeQuervain's tenosynovitis. She likely has a small TFCC tear , however, by exam this does not seem to be bothering her significantly. We discussed the r isks and potential benefits of release of the first dorsal compartment. A PARQ session was held where I discussed the risks, benefits, and alternatives to this surgery. The patient wa s informed that the risks include but are not limited to , infection, damage to nerves, vessels, bone, tendons, cartilage, muscle, post operative stiffness, there may be need for further surgery, and that no surgery has a guarantee. The patient had an opportunity to ge t her questions answered to help understand the procedure and postoperative course.Olman rodriguez signed by Danita Okeefe MD at 12/08/2008 9:10 PM PDTdocumented in this encounter Miscellaneous Notes Scan - Other, Faculty - 01/10/2009 10:55 PM PDT documented in t his encounter Plan of Treatment Not on filedocumented as of this encounter Results X-RAY WRIST 3 VIEWS [...] Guzman | | | | | | Fito SOTOiewer: | | | | | | DANITA [...] | | + +---------+ + + | [facility] DEPARTMENT OF | | | | | RADIOLOGY | | | | + +---------+ + + documented in this encounter Visit Diagnoses + + | Diagnosis | + + | Wrist pain - Primary Pain in joint, forearm | + + | Tenosynovitis, de Quervain Radial styloid tenosynovitis | + + | Distal radius fracture Other closed fractures of distal end of radius (alone) | + + | Triangular fibrocartilage complex tear Other wrist sprain and strain | + + | De Josh's tenosynovitis Radial styloid tenosynovitis | + + documented in this encounter
--- OUTSIDE RECORDS SUMMARY | ~2020-01-02 | XMS | Encounter Summary ---
Demographics + + + | Address | [address] | | | [place] [address] | + + + | Home Phone | | + + + | Preferred Language | Unknown | + + + | Marital Status | | + + + | Jehovah'S Witness Affiliation | 1041 | + + + | Race | Unknown | + + + | Ethnic Group | Not or | + + + Author + + + | Author | [facility] | | | and [place] | + + + | Organization | [facility] | | | and [...] Team Providers + +------+ + | Care Brand Ambassadors Promotional Sales Name | Role | Phone | + +------+ + PCP | Unavailable | + +------+ + Encounter Details +--------+ + + + + | Date | Type | Department | Care Team | Description | +--------+ + + + + | 12/31/ | [facility] | [facility] | Avinash Vicente, | | | 2004 | Encounter | MED CTR XRAY [address] | [address] | | | | | [address] | [address] [place], [place] | | | | | [place] [address] | [address] | | | | | [phone] | | | +--------+ + + + [...] | | | | | [place] [address] | | | | | | [phone] | | | | | | | | +--------+---------+ + + + documented as of this encounter Visit Diagnoses Not on filedocumented in this encounter"
--- OUTSIDE RECORDS SUMMARY | ~2020-01-02 | XMS | Encounter Summary ---
Demographics + + + | Address | [address] | | | [place] [address] | + + + | Home Phone | | + + + | Preferred Language | Unknown | + + + | Marital Status | | + + + | Hinduism Affiliation | 1041 | + + + | Race | Unknown | + + + | Ethnic Group | Not or | + + + Author + + + | Author | [facility] | | | and [place] | + + + | Organization | [facility] | | [...] Team Providers + +------+ + | Care Assistant Chief Nursing Officer Name | Role | Phone | [...] | | | [address] | [place] [address] | | | | | [place] [address] | | | | | | [phone] | | | +--------+ + + + [...] 2019 | Visit | | [address] | | | | | | [address] | | | | | | [place] [address] | | | | | | [phone] | | | | | | | | +--------+---------+ + + + documented as of this encounter Procedures + +--------+ + + + | Procedure Name | Priori | Date/Time | Associated Diagnosis | Comments | | | ty | | | | + +--------+ + + + | LYNDON DIGITAL | Routin | 10/25/2016 | | Results for this | | SCREENING BILATERAL | e | 12:00 AM | | procedure are in the | | | | PDT | | results section. | + +--------+ + + + documented in this encounter Results LYNDON Digital Screening Bilateral (10/25/2016 12:00 AM PDT) + + | Specimen [...]
--- OUTSIDE RECORDS SUMMARY | ~2020-01-02 | XMS | Encounter Summary ---
Demographics + + + | Address | [address] | | | [place] [address] | + + + | Home Phone [...] + + + | Author | [facility] | | | and [place] | + + + | Organization | [facility] | | | [...] Providers + +------+ + | Care Continuity Person Name | Role | Phone | + +------+ + | Jean Carlos Crowell PA-C | PCP | | + +------+ + Reason for Visit +--------+--------+ + | Reason | Onset | Comments | | | Date | | +--------+--------+ + | Pain | 07/24/ | | | | 2019 | | +--------+--------+ + Encounter Details +--------+ + + + + | Date | Type | Department | Care Team | Description | +--------+ + + + + | 07/24/ | Telephone | [facility] | Opal Jain Thomas, | Pain | | 2020 | | RHEUMATOLOGY [address] | [address] | | | | | [address] | | | | | | [place] | | | | | | [address] | | | | | | [phone] | | | +--------+ + + + [...] Telephone Encounter - Jess Lester ARNP - 07/25/2019 1:39 PM PDTNoted- we will s end over pred. prescription elephone Encounter - Opal Jain RN - 07/25/2019 1:34 PM PDTI called t he patient and advised of providers note. Patient verbalized understanding and states that s he hasn't called other pharmacies, but she will. She will go ahead an get the Rx and decide if she wants to take it. elephone Encounter - Jess Lester ARNP - 07/25/2019 1:11 PM PDTAll I have fo r immediate joint relief is prednisone- she can take a short course- 10 mg x 3 days, then 5 mg x 3 days. I realize it can affect blood sugars and she will have to monitor closely It may take a few weeks for increased dose of mtx to begin working for her. Also, she is most likely noticing more joint pain due to being off ssz (this is because she could not get EC coated from her pharmacy - I don't know if she has called to other pharmac ies to see if they have EC SSZ??) Let me know what I can do for her?? elephone Encounter - Opal Jain RN - 07/25/2019 12:54 PM PD TOnset: Tuesday07/21/19 Pain Score: 7 Location(s): Right hand, left ankle Hot to the touch: No Redness: No Swelling: Yes, hand & ankle Medication(s) Taken: Celebrex, cbd, pain pills Attempts to alleviate: Hot packs Successful: A little bit Taking Prednisone: No, messes with blood sugar (she's been having issues with blood sugar) Patient states her methotrexate was increased last Tuesday but hasn't helped yet.Electronica lly signed by Opal Jain RN at 07/25/2019 12:59 PM PDTdocumented in this encounter Plan of Treatment +--------+---------+ + + + | Date | Type | Specialty | Care Team | Description | +--------+---------+ + + + | 01/15/ | Office | Rheumatology | Trevon, | | | 2019 | Visit | | [address] | | | | | | [address] | | | | | | [place] [address] | | | | | | [phone] | | | | | | | | +--------+---------+ + + + documented as of this encounter Visit Diagnoses + + | Diagnosis | + + | Rheumatoid arthritis of multiple sites with negative rheumatoid factor (HCC) - Primary | + + documented in this encounter"
--- OUTSIDE RECORDS SUMMARY | ~2020-01-02 | XMS | Encounter Summary ---
Demographics + + + | Address | [address] | | | [place] [address] | + + + | Home Phone | | + + + | Preferred Language | Unknown | + + + | Marital Status | | + + + | Yazdanism Affiliation | 1041 | + + + | Race | Unknown | + + + | Ethnic Group | Not or | + + + Author + + + | Author | [facility] | | | and [place] | + + + | Organization | [facility] | | | and [...] Team Providers + +------+ + | Care Kiln Labourer Name | Role | Phone | + +------+ + | Jean Carlos Crowell PA-C | PCP | | + +------+ + Encounter Details +--------+ + + + + | Date | Type | Department | Care Team | Description | +--------+ + + + + | 12/ | Hospital | [facility] | Conversion | Pain | | 2018 | Encounter | [address] | Transaction, | | | | | [address] | Provider Unknown | | | | | [place], [place] | [phone] | | | | | [address] | | | | | | [phone] | | | +--------+ + + + [...] | | 0 | | | | [address] units CAPS | | | | | [...] | | 2019 | Visit | | [address] | | | | | | [address] | | | | | | [place] [address] | | | | | | [phone] | | | | | | | | +--------+---------+ + + + documented as of this encounter Procedures + +--------+ + + + | Procedure Name | Priori | Date/Time | Associated Diagnosis | Comments | | | ty | | | | + +--------+ + + + | XR WRIST RIGHT 3 + | Routin | 03/06/2018 | | Results for this | | VW | e | 1:37 AM | | procedure are in the | | | | PST | | results section. | + +--------+ + + + documented in this encounter Results XR Wrist Right 3 + Vw (03/06/2018 1:37 AM PST) + + | Specimen | [...]
--- OUTSIDE RECORDS SUMMARY | ~2020-01-02 | XMS | Encounter Summary ---
Demographics + + + | Address | [address] | | | [place] [address] | + + + | Home Phone | | + + + | Preferred Language | Unknown | + + + | Marital Status | | + + + | Lutheran Affiliation | 1041 | + + + | Race | Unknown | + + + | Ethnic Group | Not or | + + + Author + + + | Author | [facility] | | | and [place] | + + + | Organization | [facility] | | [...] Team Providers + +------+ + | Care High Lead Yarder Name | Role | Phone | + +------+ + | Jean Carlos Crowell PA-C | PCP | | + +------+ + Reason for Visit + +--------+ + | Reason | Onset | Comments | | | Date | | + +--------+ + | Medication Problem | 07/15/ | | | | 2019 | | + +--------+ + Encounter Details +--------+ + + + + | Date | Type | Department | Care Team | Description | +--------+ + + + + | 07/15/ | Telephone | [facility] | Jaelyn Gross, | Medication Problem | | 2019 | | RHEUMATOLOGY [address] | [address] | | | | | [address] | | | | | | [place] | | | | | | [address] | | | | | | [phone] | | | +--------+ + + + [...] this encounter Miscellaneous Notes Telephone Encounter - Jaelyn Gross LPN - 07/16/2019 11:43 AM PDTNoted, no further actio n needed. elephone E ncounter - Jess Lester ARNP - 07/16/2019 10:24 AM PDTNoted- thanks elephone Encounter - Preet Gross LPN - 07/16/2019 9:53 AM [facility]TC[facility] left voicemail message saying that EC (Enteric Coated) Sulfasalazine (SSZ) not available so patient was gi jozef immediate release. Thao said patient called C/O immediate release upsetting her stomach so much that she has stopped taking the medication. Called spoke to Srini at [facility] pharmacy who says the EC Sulfasalazine "has been unavail able for some time now, several months" and have no way of knowing if or when it will be carlos ilable again. Called spoke to patient who says at first it was not too bad, but stomach issues continued to get worse saying "it was making her sick". Patient says she stopped taking the SSZ "a f ew days ago". Advised patient best to schedule sooner appointment with MALINDA Mercado to discuss other treat ment options. Patient says she would prefer Telephone or in office visit. Patient was transferred to [facility] to schedule sooner appointment. documented in this e ncounter Plan of Treatment +--------+---------+ + + + | Date | Type | Specialty | Care Team | Description | +--------+---------+ + + + | 01/15/ | Office | Rheumatology | Trevon, | | | 2020 | Visit | | [address] | | | | | | [address] | | | | | | [place] [address] | | | | | | [phone] | | | | | | | | +--------+---------+ + + + documented as of this encounter Visit Diagnoses Not on filedocumented in this encounter
--- OUTSIDE RECORDS SUMMARY | ~2020-01-02 | XMS | Encounter Summary ---
Demographics + + + | Address | [address] | | | [place] [address] | + + + | Home Phone | | + + + | Preferred Language | Unknown | + + + | Marital Status | | + + + | Orthodoxy Affiliation | CAT | + + + | Race | or | + + + | Ethnic Group | Not or | + + + Author + + + | Author | [facility] | + + + | Organization | [facility] | + + + | Address | Unknown | + + + | Phone | Unavailable | + + + Support + + +---------+ + | Name | Relationship | Address | Phone | + + +---------+ + | Giacomo Washington | ECON | Unknown | | + + +---------+ + Care Team Providers + +------+ + | Care Varsity Baseball Coach Name | Role | Phone | + +------+ + | Kendall Ruzi MD | PCP | | + +------+ + Reason for Visit AUTH/CERT +--------+--------+ + + + + | Status | Reason | Specialty | Diagnoses / | Referred By | Referred To | | | | | Procedures | Contact | Contact | +--------+--------+ + + + + | Closed | | | | | [facility] | | | | | | | Stay [address] | | | | | | | Mailcode: [facility] | | | [facility] | | | | | | [facility], | | | | | | | [address] | | | | | | | [place], [place] | | | | | | | [address] | | | | | | | Phone: | | | | | | | [phone] | | | | | | | Fax: | | | | | | | [phone] | +--------+--------+ + + + + Encounter Details +--------+ + + + + | Date | Type | Department | Care Team | Description | +--------+ + + + + | 12/24/ | Hospital | [facility] | Avinash Okeefe MD | | | 2008 | Encounter | STAY [address] | [address] [facility] | | | | | [place] Mailcode: [facility] | [address] | | | | | [facility] | [place], [place] | | | | | Health and Healing, | [address] | | | | | [address] | [phone] | | | | | [facility] [place] | | | | | | [address] | | | | | | [phone] | | | +--------+ + + + [...] + + documented in this encounter Discharge Summaries Vickie Raphael - 12/24/2008 5:05 PM PDT documented in this encounter Discharge Instructions Instructions Madeline Dong - 12/24/2008 Nursing Discharg e Instructions General discharge instructions for same-day procedure patients: Do not stay alone; a responsible person should be with you. Do not drive or drink alcohol for 24 hours or while on narcotic pain medication. Do not make any important personal or business decisions for 24 hours or while on narcotic pain medication. Advance diet to regular if no nausea. Eat lightly and avoid large, high fat or highly spic ed meals for 24-48 hours. IV site care instructions: Monitor IV site for pain, redness, swelling or drainage. If present, call your physician i mmediately. Minor redness and tenderness may be treated with warm, moist compresses for 24-48 hours. I f still red and tender after this, notify your physician. Call your provider if you experience: Difficulty breathing or unusual shortness of breath Persistent nausea or vomiting Excessive bleeding, drainage at the operative site Fever of 101 or greater, chills, increased pain that is not relieved by pain medication. Last oral pain medication:oxycodone 10mg at 4:40pm Home care instructions:Home care after hand surgery Follow-up appointment: as scheduled documented in this encounter Medications at Time [...] documented as of this encounter Progress Notes Luis Horta MD - 12/24/2008 1:23 PM PDTORTHO INPATIENT BRIEF OPERATIVE NOTE Procedure Date: 12/24/08 Author: LUIS HORTA MD Attending Physician: Sary Assistants: Carroll Preoperative Diagnosis: R DeQuarvain's Postoperative Diagnosis: R DeQuarvain's Procedure Performed: R 1st extensor compartment release Estimated Blood Loss: Min Tourniquet time: 26min Fluids: Crystalloid Specimens: None Complications: None Drains: None Disposition: Stable to PACU Findings: R Kishan's P DTdocumented in this encounter Procedure Notes Other, Faculty - 12/24/2008 5:05 PM PDT Other, Faculty - 12/24/2008 5:05 PM PDT Other, Faculty - 12/24/2008 5:05 PM PDTAssociated Order(s): ANESTHESIA/SEDATION; ANESTHE BERNARDO/SEDATION Other, Faculty - 12/24/2008 5:05 PM PDTAssociated Order(s): ANESTHESIA/SEDATION; ANESTHE BERNARDO/SEDATION Other, Faculty - 12/24/2008 8:55 AM PDT Avinash Okeefe MD - 12/24/2008 12:00 AM PDTAssociated Order(s): OPERATION RECORD; OPERAT ION RECORD [id number] [facility] [id number] Date: 12/24/2008 Attending Surgeon: Avinash Okeefe M.D. Conservation Worker(s): Luis Horta M.D. Preoperative Diagnosis(es): De Quervain's tenosynovitis, right wrist. Postoperative Diagnosis(es): De Quervain's tenosynovitis, right wrist. Procedures Performed: Right first extensor compartment release. Clinical Preamble: This 53-year-old female presented with painful tenosynovitis of the right first extensor compartment. This was resistant to conservative treatment, and we therefore discussed the relative risks and benefits of operative intervention. The patient elected to proceed with surgery at this time. Procedure: Under regional anesthetic, the patient was placed supine on the operating table, and the right arm was prepped and free draped in sterile fashion. A 1 cm transverse incision was made over the radial styloid. Blunt dissection was carried through subcutaneous tissue, and branches of the superficial radial nerve were protected overly. The first extensor compartment was identified and incised longitudinally. Slips of the abductor pollicis longus were identified. The extensor pollicis brevis was seen in the first compartment. This compartment was released, and the intervening septum was excised. The tendons appeared to be fully released. The wound was irrigated and closed with interrupted 5-0 nylon. A sterile dressing was applied after tourniquet deflation. The patient was then awoken and returned to her hospital bed. She was transferred to PACU in stable condition. The patient tolerated the procedure well with no complications and minimal blood loss. Postoperative Plan: This patient will return in 1-1/2 weeks for suture removal. She will be provided with a hand-based thumb spica brace and have her rehabilitation and gradually return to activities supervised by a hand therapist. She will return in 6 weeks for a clinical review. Avinash Okeefe M.D. [facility] / [id number] / [id number] / [id number] / ther, Faculty - 11/27 8:22 PM PDT Other, Faculty - 12/23/2008 3:08 PM PDT Other, Faculty - 12/23/2008 12:00 AM PDTAssociated Order(s): ANESTHESIA/SEDATION; ANESTHE BERNARDO/SEDATION documented in this encounter Miscellaneous Notes Scan - Other, Faculty - 12/24/2008 5:05 PM PDT Scan - Other, Faculty - 12/24/2008 5:05 PM PDT Scan - Other, Faculty - 12/24/2008 5:05 PM PDT Scan - Other, Faculty - 12/24/2008 5:05 PM PDT Scan - Other, Faculty - 12/24/2008 5:05 PM PDT documented in this encounter Plan of Treatment Not on filedocumented as of this encounter Procedures + +--------+ + + + | Procedure Name | Priori | Date/Time | Associated Diagnosis | Comments | | | ty | | | | + +--------+ + + + | ANESTHESIA/SEDATION | | 12/24/2008 | | Results for this | | | | 5:05 PM | | procedure are in the | | | | PDT | | results section. | + +--------+ + + + | ANESTHESIA/SEDATION | | 12/24/2008 | | Results for this | | | | 5:05 PM | | procedure are in the | | | | PDT | | results section. | + +--------+ + + + | OPERATION RECORD | | 12/24/2008 | | Results for this | | | | 12:00 AM | | procedure are in the | | | | PDT | | results section. | + +--------+ + + + | ANESTHESIA/SEDATION | | 12/23/2008 | | Results for this | | | | 12:00 AM | | procedure are in the | | | | PDT | | results section. | + +--------+ + + + documented in this encounter Results ANESTHESIA/SEDATION (12/24/2008 5:05 PM PDT) + + + | Narrative | Performed At | + + + | | | + + + + + | Procedure Note | + + | Other, Faculty - 12/24/2008 5:05 PM PDT | | | + + ANESTHESIA/SEDATION (12/24/2008 5:05 PM PDT) + + + | Narrative | Performed At | + + + | | | + + + + + | Procedure Note | + + | Other, Faculty - 12/24/2008 5:05 PM PDT | | | + + OPERATION RECORD (12/24/2008 12:00 AM PDT) + + + | Narrative | Performed At | + + + | [id number] | | | [id number] | | | [id number] [facility] [id number] | | | Date: 12/24/2008 Attending | | | Surgeon: Avinash Okeefe M.D. | | | Conservation Worker(s): Luis Horta M.D. | | | Preoperative Diagnosis(es): De Quervain's tenosynovitis, right wrist. | | | Postoperative Diagnosis(es): De Quervain's tenosynovitis, | | | right wrist. Procedures Performed: Right first extensor | | | compartment release. Clinical Preamble: This 53-year-old | | | female presented with painful tenosynovitis of the right first | | | extensor compartment. This was resistant to conservative | | | treatment, and we therefore discussed the relative risks and benefits | | | of operative intervention. The patient elected to proceed with | | | surgery at this time. Procedure: Under regional anesthetic, | | | the patient was placed supine on the operating table, and the right | | | arm was prepped and free draped in sterile fashion. A 1 cm | | | transverse incision was made over the radial styloid. Blunt | | | dissection was carried through subcutaneous tissue, and branches of | | | the superficial radial nerve were protected overly. The first | | | extensor compartment was identified and incised longitudinally. | | | Slips of the abductor pollicis longus were identified. The | | | extensor pollicis brevis was seen in the first compartment. This | | | compartment was released, and the intervening septum was excised. | | | The tendons appeared to be fully released. The wound was | | | irrigated and closed with interrupted 5-0 nylon. A sterile | | | dressing was applied after tourniquet deflation. The patient was | | | then awoken and returned to her hospital bed. She was transferred | | | to PACU in stable condition. The patient tolerated the procedure | | | well with no complications and minimal blood loss. | | | Postoperative Plan: This patient will return in 1-1/2 weeks for | | | suture removal. She will be provided with a hand-based thumb | | | spica brace and have her rehabilitation and gradually return to | | | activities supervised by a hand therapist. She will return in 6 | | | weeks for a clinical review. Avinash Okeefe M.D. [facility] | | | / [id number] / [id number] / [id number] / | | | | | + + + + + | Procedure Note | + + | Avinash Okeefe MD - 12/24/2008 12:00 AM PDT [id number] | | [id number] [facility] | | [id number] Date: 12/24/2008 Attending Surgeon: | | Avinash Okeefe M.D. Conservation Worker(s): Luis Horta M.D. | | Preoperative Diagnosis(es):De Quervain's tenosynovitis, right wrist. Postoperative | | Diagnosis(es):De Quervain's tenosynovitis, right wrist. Procedures Performed:Right | | first extensor compartment release. Clinical Preamble:This 53-year-old female presented | | with painful tenosynovitis of the rightfirst extensor compartment. This was resistant | | to conservative treatment,and we therefore discussed the relative risks and benefits of | | operativeintervention. The patient elected to proceed with surgery at this time. | | Procedure:Under regional anesthetic, the patient was placed supine on the | | operatingtable, and the right arm was prepped and free draped in sterile fashion. A1 cm | | transverse incision was made over the radial styloid. Bluntdissection was carried | | through subcutaneous tissue, and branches of thesuperficial radial nerve were protected | | overly. The first extensorcompartment was identified and incised longitudinally. Slips | | of theabductor pollicis longus were identified. The extensor pollicis brevis wasseen | | in the first compartment. This compartment was released, and theintervening septum was | | excised. The tendons appeared to be fully released.The wound was irrigated and closed | | with interrupted 5-0 nylon. A steriledressing was applied after tourniquet deflation. | | The patient was thenawoken and returned to her hospital bed. She was transferred to | | PACU instable condition. The patient tolerated the procedure well with nocomplications | | and minimal blood loss. Postoperative Plan:This patient will return in 1-1/2 weeks for | | suture removal. She will beprovided with a hand-based thumb spica brace and have her | | rehabilitationand gradually return to activities supervised by a hand therapist. | | Amberll return in 6 weeks for a clinical review. Avinash Okeefe M.D.[facility] / | | [id number] / [id number] / [id number] / T: 01/09/2009 | |This 53-year-old female presented with painful tenosynovitis of the right | |first extensor compartment. This was resistant to conservative treatment, | |and we therefore discussed the relative risks and benefits of operative | |intervention. The patient elected to proceed with surgery at this time. | | | | | |Procedure: | |Under regional anesthetic, the patient was placed supine on the operating | |table, and the right arm was prepped and free draped in sterile fashion. A | |1 cm transverse incision was made over the radial styloid. Blunt | |dissection was carried through subcutaneous tissue, and branches of the | |superficial radial nerve were protected overly. The first extensor | |compartment was identified and incised longitudinally. Slips of the | |abductor pollicis longus were identified. The extensor pollicis brevis was | |seen in the first compartment. This compartment was released, and the | |intervening septum was excised. The tendons appeared to be fully released. | |The wound was irrigated and closed with interrupted 5-0 nylon. A sterile | |dressing was applied after tourniquet deflation. The patient was then | |awoken and returned to her hospital bed. She was transferred to PACU in | |stable condition. The patient tolerated the procedure well with no | |complications and minimal blood loss. | | | | | |Postoperative Plan: | |This patient will return in 1-1/2 weeks for suture removal. She will be | |provided with a hand-based thumb spica brace and have her rehabilitation | |and gradually return to activities supervised by a hand therapist. She | |will return in 6 weeks for a clinical review. | | | | | | | | | |Avinash Okeefe M.D. | |RMO / | |[id number] / [id number] / [id number] / | | | | | | | | | | | | | | | | | | | | | + + ANESTHESIA/SEDATION (12/23/2008 12:00 AM PDT) + + + | Narrative | Performed At | + + + | | | + + + + + | Procedure Note | + + | Vickie Raphael - 12/23/2008 12:00 AM PDT | | | + + documented in this encounter Visit Diagnoses Not on filedocumented in this encounter
--- OUTSIDE RECORDS SUMMARY | ~2020-01-02 | XMS | Encounter Summary ---
Demographics + + + | Address | [address] | | | [place] [address] | + + + | Home Phone | | + + + | Preferred Language | Unknown | + + + | Marital Status | | + + + | Shinto Affiliation | 1041 | + + + | Race | Unknown | + + + | Ethnic Group | Not or | + + + Author + + + | Author | [facility]ly [facility] | | | and [place] | + + + | Organization | [facility] | | | and [place] | + + + | Address | Unknown | + + + | Phone | Unavailable | + + + Support + + +---------+ + | Name | Relationship | Address | Phone | + + +---------+ + | Giacomo Wright | ECON | Unknown | | + + +---------+ + | Ninfa Morel | ECON | Unknown | | + + +---------+ + Care Team Providers + +------+ + | Care Head Cook Name | Role | Phone | + +------+ + | Jean Carlos Crowell PA-C | PCP | | + +------+ + Encounter Details +--------+ + + + + | Date | Type | Department | Care Team | Description | +--------+ + + + + | 12/01/ | Hospital | [facility] | Presley Kat, | | | 2014 - | Encounter | [facility] [address] | | | | | [address] | [address], | | | 03/[address]/ | | [place], [place] | [place] [address] | | | 2013 | | [address] | [phone] | | | | | [phone] | | | +--------+ + + + [...] + + + +---------+ + + | cephalexin | Take 500 mg by mouth | | 0 | | | | (KEFLEX) 500 mg | 4 times daily. | | | | 7 | | capsule | | | | [...] + +---------+ + + | | Take 1 tablet by | | 0 | | | | HYDROcodone-acetamin | mouth every 6 hours | | | | 7 | | ophen (NORCO) 10-325 | as needed. | | | | | | mg per tablet | | | | | | [...] + + + +---------+ + + | ibandronate | Take 150 mg by mouth | | 0 | | | | (BONIVA) 150 mg | Every 30 days. | | | | 7 | | [...] + + + +---------+ + + | liraglutide | Inject 1.2 mg under | | 0 | | 08/16/201 | | (VICTOZA) 18 mg/3 mL | the skin Daily. | | | | 7 | | injection | | | | | | + [...] + + + +---------+ + + | Multiple | Take 600 mg by | | 0 | | | | Minerals-Vitamins | mouth. | | | | 7 | | (CALCIUM & VIT D3 | | | | | | | [facility] PO) | | | | | | + [...] documented as of this encounter Progress Notes Conversion Transaction, Provider Unknown - 03/11/2014 1:27 PM PSTFormatting of this note m ight be different from the original. Nurse Progress Note by Esther Oakley RN at 03/11/141326 Author: Esther Oakley RN Service: Wound/Ostomy Care Author Type: Registered Nurse Filed: 03/11/141326 Date of Service: 03/11/141326 Status: Signed Senior Consulting Manager: Esther Oakley RN (Registered Nurse) [facility] Service: Wound Care Wound care came to see pt to change pt's wound vac dressing prior to discharge. OBJECTIVE Wound #1: Classification: Surgical Wound Location:left labia Drainage Amount:Small Drainage Type:Sero-Sanguinous Wound Odor After Wound is Cleaned:None Periwound Skin:Denuded, Tender/Painful and pealing Wound Size:4 (cm) Length, 1 (cm) Width and 10 (cm) Depth Wound Bed:Moist and Red Wound Exam:open and good granulation Wound Infection: none Wound # 2: Classification: Surgical Wound Location:left groin Drainage Amount:Small Drainage Type:Sero-Sanguinous Wound Odor After Wound is Cleaned:None Periwound Skin:Denuded Wound Size:3.5 (cm) Length, 0.5 (cm) Width and 6.5 (cm) Depth Wound Bed:Moist and Red Wound Exam:open and good granulation Wound Infection: none Wound # 3: Classification: Surgical Wound Location:left flank Drainage Amount:Large Drainage Type:Serous Wound Odor After Wound is Cleaned:None Periwound Skin:clean dry and intact Wound Size:3.5 (cm) Length, .5 (cm) Width and 5 (cm) Depth Wound Bed:Moist Wound Exam:open and healing Wound Infection: none noted PROBLEM LIST Active Problems: * No active hospital problems. * ASSESSMENT & PLAN Classification: Surgical Wound Negative Pressure Wound Therapy initiated/continued as follows: Newly initiated NPWT ?: no Number of foam pieces removed: 6; 2white, 4 black NPWT Cycle: Continuous NPWT Foam Type: black foam and white foam Number of Pieces :2 white & 4 black NPWT Contact Layer: No NPWT Suction: Other: 150 mmHg NPWT Canister Changed: yes; 500 ml. NPWT Frequency of Dressing Changes: Three times per week, Next dressing change due ay Discharge plan: pt will go home today with home health. Home vac applied to pt and instruct ions gone over with pt. Thank you for allowing me to participate in the care of this patient. Please call if there are any additional questions. Esther Oakley RN 1:20 PM 03/11/2014 onver zafar Transaction, Provider Unknown - 03/11/2014 12:10 PM PST Progress Notes by Arben Valentin RPH at 03/11/14 1210 Author: Arben Valentin RPH Service: Pharmacy Author Type: Pharmacist Filed: 03/11/14 1210 Date of Service: 03/11/141209 Status: Signed Senior Consulting Manager: Arben Valentin RPH (Pharmacist) Vancomycin day 12, est crcl 79.9ml/min, per Dr. Mancilla note therapy to continue til 03/16[place] [address]/12 onver zafar Transaction, Provider Unknown - 03/11/2014 9:53 AM PST Case Management by AMY Bryson at 03/11/14 09 Author: AMY Bryson Service: (none) Author Type: Professor Of French Filed: 03/11/1455 Date of Service: 03/11/14952 Status: Signed Senior Consulting Manager: AMY Bryson (Professor Of French) notified both [facility] that pt will discharge home today. [facility] requested that pt be home by 1pm. Pt stated she will have family transport her this mor margarita. Pt had no other resource concerns at this time. Dell CORDERO Jp Rodriguez i, MD - 03/10/2014 1:25 PM PST Progress Notes by Jp Tuttle MD at 03/10/14 1325 Author: Jp Tuttle MD Service: Hospitalist Author Type: Physician Filed: 03/10/14 3283 Date of Service: 03/10/14 1325 Status: Signed Senior Consulting Manager: Jp Tuttle MD (Physician) [facility] Service: Hospitalist Progress Note Hospital Day: LOS: 13 days Post-Op Day: 6 Days Post-Op SUBJECTIVE Patient Summary: Events Overnight: Feels better and and denies any acute symptoms. Appetite fair. No a bdominal pain. Scheduled Medications aspirin 81 mg Oral Daily with breakfast calcium-vitamin D 2 tablet Oral BID cholecalciferol 1,000 Units Oral Daily clindamycin 600 mg Intravenous Q8H ferrous sulfate (65 FE) 65 mg of iron Oral Daily with breakfast insulin aspart 0-10 Units Subcutaneous TID AC insulin aspart 0-5 Units Subcutaneous Nightly insulin aspart 8 Units Subcutaneous TID AC insulin glargine 20 Units Subcutaneous BID lactobacillus 1 packet Oral 4x Daily meropenem 1 g Intravenous Q8H miconazole Topical BID omeprazole 20 mg Oral QAM AC PARoxetine 20 mg Oral QAM multivitamin & minerals w iron/FA 1 tablet Oral Daily with breakfast sodium chloride 0.9 % 10 mL Intravenous Q12H SULEMAN vancomycin 1,000 mg Intravenous Q12H Continuous Infusions dextrose PRN Medications acetaminophen, acetaminophen, dextrose, dextrose, dextrose, glucagon, glucagon, hydrALAZINE , HYDROmorphone, HYDROmorphone, lidocaine, magnesium sulfate, magnesium sulfate, magnesium s ulfate, ondansetron, ondansetron, oxyCODONE, phosphorus, polyethylene glycol, potassium chlo ride, potassium chloride, potassium chloride, sodium chloride 0.9 %, sodium phosphate IVPB 2 0 mmol, sodium phosphate IVPB 45 mmol, zolpidem OBJECTIVE Vital Signs: BP 129/61 | Pulse 85 | Temp(Src) 98.5 F (36.9 C) (Oral) | Resp 16 | Ht 1.575 m (5' 2") | Wt 105.1 kg (231 lb 11.3 oz) | BMI 42.37 kg/m2 | SpO2 96% | ? No Temp: [97.7 F (36.5 C)-98.5 F (36.9 C)] 98.5 F (36.9 C) (03/10 1140) BP: (124-160)/(60-74) 129/61 mmHg (03/10 1140) Heart Rate: [73-85] 85 (03/10 1140) Resp: [16-18] 16 (03/10 114) SpO2: [94 %-96 %] 96 % (03/10 1140) Physical Exam Constitutional: She is oriented to person, place, and time. She appears well-developed and well-nourished. No distress. HENT: Head: Normocephalic and atraumatic. Mouth/Throat: Oropharynx is clear and moist. No oropharyngeal exudate. Eyes: Conjunctivae are normal. Pupils are equal, round, and reactive to light. No scleral i cterus. Neck: Normal range of motion. Neck supple. No JVD present. Cardiovascular: Normal rate, regular rhythm, normal heart sounds and intact distal pulses. Exam reveals no gallop and no friction rub. No murmur heard. Pulmonary/Chest: Effort normal and breath sounds normal. No respiratory distress. She has n o wheezes. She has no rales. She exhibits no tenderness. Abdominal: Soft. Bowel sounds are normal. She exhibits no mass. There is no tenderness. The re is no rebound and no guarding. No hernia. Wound vac over left LQ Musculoskeletal: She exhibits no tenderness. +1 bilateral LE edema. Lymphadenopathy: She has no cervical adenopathy. Neurological: She is alert and oriented to person, place, and time. No cranial nerve defici t. Skin: Skin is warm and dry. No rash noted. She is not diaphoretic. No erythema. There is pa llor. Psychiatric: She has a normal mood and affect. Her behavior is normal. Judgment and thought content normal. DATA CBC: Lab Results Component Value Date WBC 7.3 03/10/2014 RBC 2.91* 03/10/2014 HGB 7.8* 03/10/2014 HCT 24.6* 03/10/2014 MCV 84.6 03/10/2014 MCH 26.7* 03/10/2014 MCHC 31.6* 03/10/2014 RDW 49.9 03/10/2014 PLT 70* 03/10/2014 MPV 10.4 03/10/2014 DIFFTYPE AUTOMATED 03/10/2014 BMP: Lab Results Component Value Date NA 141 03/10/2014 K 3.9 03/10/2014 CL 109 03/10/2014 CO2 26 03/10/2014 ANIONGAP 10 03/10/2014 GLUF 106* 03/10/2014 BUN 6* 03/10/2014 CREATININE 0.74 03/10/2014 BCR 8 03/10/2014 CA 7.8* 03/10/2014 EGFR >60 03/10/2014 PROBLEM LIST Principal Problem: Vulvar abscess Active Problems: Sepsis(995.91) DM2 (diabetes mellitus, type 2) Renal insufficiency COPD (chronic obstructive pulmonary disease) Anemia, unspecified Thrombocytopenia, unspecified ASSESSMENT & PLAN 1. Vulvar abscess with extension of infection to abdominal wall. SP I and D and debridement . On IV antibiotics and doing well. Wound vac is working fine. Likely discharge home tomorro w. Antibiotics to be continued till March 16 per ID recommendations. 2. Sepsis. Resolved. 3. Anemia. Most likely anemia of acute disease. No prior history of anemia per patient. Redd l monitor. No need for blood transfusions. 4. Thrombocytopenia. Likely due to Meropenem. Stable. 5. Sepsis. Resolved. 6. Diabetes mellitus. Controlled. 7. COPD. Stable. Disposition: Likely discharge home tomorrow. Code Status: Full Code Jp Tuttle MD 03/10/2014 onversion Tra nsaction, Provider Unknown - 03/10/2014 7:08 AM PSTFormatting of this note might be differe nt from the original. Progress Notes by Brianna Cooper RPH at 03/10/14 0708 Author: Brianna Cooper RPH Service: (none) Author Type: Pharmacist Filed: 03/10/14 0709 Date of Service: 03/10/14 0708 Status: Signed Senior Consulting Manager: Brianna Cooper RPH (Pharmacist) Day Vanco Tx Todays Scr= 0.74, WBC= 7.3 with estim CrCl= 95.5 ml/min Pharmacist: BRIANNA COOPER 03/10/2014 7:08 AM onver zafar Transaction, Provider Unknown - 03/09/2014 11:56 AM PST Therapy Progress Note by Ana Rosa Rudolph PT at 03/09/14 1156 Author: Ana Rosa Rudolph PT Service: (none) Author Type: Physical Therapist Filed: 03/09/14 6685 Date of Service: 03/09/14 1156 Status: Signed Senior Consulting Manager: Ana Rosa Rudolph PT (Physical Therapist) 03/08/14 4683 PT Last Visit PT Received On 03/08/14 Reason for Treatment Other (comment);Deconditioning (vulvar abscess/sepsis) Requires PT Follow Up On hold (see note below) Other Comments Comments Spoke w/ RN. Pt is ambulating with supervision in room. However, issues with jose carlos ssing and wound vac when ambulating. RN requests to hold PT at this time, as her dressing w as just changed Plan Treatment/Interventions Discharge skilled PT services Progress Other (comment) (independent in mobility) Recommendation Recommendations Return to prior living situation;Home with 24 hr supervision/assist Equipment Recommended None onver zafar Transaction, Provider Unknown - 03/09/2014 9:11 AM PST Progress Notes by Brianna Cooper RPH at 03/09/14910 Author: Brianna Cooper RPH Service: (none) Author Type: Pharmacist Filed: 03/09/14910 Date of Service: 03/09/14910 Status: Signed Senior Consulting Manager: Brianna Cooper RPH (Pharmacist) No labs this AM Retimed doses to 0900/2100 and then to 0800/2000 for Home Health admin. Pharmacist: BRIANNA COOPER 03/09/2014 9:11 AM yee, Makenna Mensah MD - 03/09/2014 8:49 AM PST Progress Notes by Makenna Weaver MD at 03/09/1449 Author: Makenna Weaver MD Service: (none) Author Type: Physician Filed: 03/09/14900 Date of Service: 03/09/14848 Status: Addendum Senior Consulting Manager: Makenna Weaver MD (Physician) Related Notes: Original Note by Makenna Weaver MD (Physician) filed at 03/09/14 0859 [facility] Service: Hospitalist Progress Note Pt: Ana Rosa Wright AGE/SEX: 58 y.o. female : 1955 ROOM: [address] [place] [address] REQUESTING PROVIDER: Makenna Weaver MD TODAY'S DATE: 03/09/2014 Hospital Day: LOS: 12 days 58-year-old female Admitted with vulvar abscess, sepsis, and hypotension. She underwent the labial I and D with packing After PO day 3 compliacted extension of the infection into the left groin. General surgery was consulted. found necrotic fat tissue with cellulitis w ithout any necrotizing fasciitis. ; was debrided And wound VAC was placed. SUBJECTIVE she also underwent 3 days ago 2nd debridment afebril Scheduled Medications aspirin 81 mg Oral Daily with breakfast calcium-vitamin D 2 tablet Oral BID cholecalciferol 1,000 Units Oral Daily clindamycin 600 mg Intravenous Q8H ferrous sulfate (65 FE) 65 mg of iron Oral Daily with breakfast insulin aspart 0-10 Units Subcutaneous TID AC insulin aspart 0-5 Units Subcutaneous Nightly insulin aspart 8 Units Subcutaneous TID AC insulin glargine 20 Units Subcutaneous BID lactobacillus 1 packet Oral 4x Daily meropenem 1 g Intravenous Q8H miconazole Topical BID omeprazole 20 mg Oral QAM AC PARoxetine 20 mg Oral QAM multivitamin & minerals w iron/FA 1 tablet Oral Daily with breakfast sodium chloride 0.9 % 10 mL Intravenous Q12H SULEMAN vancomycin 1,000 mg Intravenous Q12H Continuous Infusions dextrose PRN Medications acetaminophen, acetaminophen, dextrose, dextrose, dextrose, glucagon, glucagon, hydrALAZINE , HYDROmorphone, HYDROmorphone, lidocaine, magnesium sulfate, magnesium sulfate, magnesium s ulfate, ondansetron, ondansetron, oxyCODONE, phosphorus, polyethylene glycol, potassium chlo ride, potassium chloride, potassium chloride, sodium chloride 0.9 %, sodium chloride 0.9 %, sodium phosphate IVPB 20 mmol, sodium phosphate IVPB 45 mmol, zolpidem Allergy: Allergies Allergen Reactions Levaquin [Levofloxacin] Other (See Comments) Muscle tension Fosamax [Alendronate] Nausea Only and GI Distress Ibuprofen GI Distress OBJECTIVE Vitals: Patient Vitals for the past 24 hrs: BP Temp Temp src Pulse Resp SpO2 Weight 03/09/14 0721 159/68 mmHg 98.2 F (36.8 C) Oral 74 18 93 % - 03/09/14 0317 152/70 mmHg 98.5 F (36.9 C) Oral 71 18 93 % 105.1 kg (231 lb 11.3 oz) 03/08/14 2353 174/76 mmHg 98.6 F (37 C) Oral 87 18 94 % - 03/08/14 2037 162/70 mmHg 98.9 F (37.2 C) Oral 90 20 93 % - 03/08/14 1517 127/60 mmHg 98 F (36.7 C) Oral 72 16 95 % - 03/08/14 1214 147/67 mmHg 98.3 F (36.8 C) Oral 68 16 94 % - I&O Detailed Table: Intake/Output Summary (Last 24 hours) at 03/09/14 0849 Last data filed at 03/09/14 0344 Gross per 24 hour Intake 4478 ml Output 4650 ml Net -172 ml Patient Vitals for the past 96 hrs: Weight 03/09/14 0317 105.1 kg (231 lb 11.3 oz) 03/07/14 0428 107.4 kg (236 lb 12.4 oz) Hemodynamics Last 24hrs: Review of systems Constitutional- afebril Lung- no cough, no shortness of breath, no wheezing Heart- no chest pain , no palpitation, no shortness of breath Abdomen- wound vac+ no pain Skin- no rash,no discolouration, no erthema, No dryness Extremities-no swelling Examination: (nursing notereviewed). Constitutional: oriented to person, place, and time. Appears well-developed and well-katina shed. HENT: Head: Normocephalic and atraumatic. Mouth/Throat: Oropharynx is clear and moist. Eyes: Conjunctivae and EOM are normal. Pupils are equal, round, and reactive to light. Neck: Normal range of motion. Neck supple. Cardiovascular: Normal rate, regular rhythm, normal heart sounds Pulmonary/Chest: Effort normal and breath sounds normal. Abdominal: Soft. Bowel sounds are normal. Vac + Genitourinary: defer Musculoskeletal: exhibits no edema and no tenderness. Neurological: alert and oriented to person, place, and time. Has normal reflexes. Skin: Skin is dry. Psychiatric: has a normal mood and affect. Behavior is normal. Judgment and thought conten t normal.Cognition intact. LABS: Recent Labs Lab 03/08/14 0426 03/07/14 0415 03/06/1441703/05/14318 WBC 7.4 8.7 8.8 11.3* HGB 7.9* 8.2* 8.0* 7.8* HCT 24.5* 25.7* 24.8* 24.9* PLT 82* 72* 62* 60* NEUTOPHILPCT 71.2 -- 75.7 79.1 MONOPCT 9.5 -- 9.4 7.6 Recent Labs Lab 03/08/14 0426 03/05/14 0319 03/04/14 0535 NA 141 139 138 K 3.3* 3.6 3.8 CL 107 109 111* CO2 31 23 24 BUN 4* 5* 6* CREATININE 0.74 0.82 0.83 PROT 5.7* 5.3* 5.3* BILITOT 0.4 0.4 0.3 ALT 7* 8* 10 AST 14 17 15 Phosphorus: Recent Labs Lab 03/09/14 0331 PHOS 4.1 Recent Labs Lab 03/09/14 0331 03/08/14 0426 03/07/14 0415 MG 1.8 1.8 1.7 No results found for this basename: AMYLASE, in the last 168 hours No results found for this basename: PHART, PO2ART, TLD1DNU, X2XSUVBM, BEART, in the last 1 68 hours No results found for this basename: APTT, INR, PTT, in the last 168 hours No results found for this basename: TSH, T3FREE, FREET4, in the last 168 hours No results found for this basename: CKTOTAL, TROPONINI, TROPONINT, CKMBINDEX, in the last 168 hours PROBLEM LIST Principal Problem: Vulvar abscess Active Problems: Sepsis(995.91) DM2 (diabetes mellitus, type 2) Renal insufficiency COPD (chronic obstructive pulmonary disease) ASSESSMENT & PLAN Principal Problem: Vulvar abscess with Left groin ext s/p wound debridment times two vac+ on van co and clinda And meropenin ( need until mar 16 ) Replace potassium hrher plt trend moniter as after d/c heparin trend better Active Problems: DM2 (diabetes mellitus, type 2)- on lantus with novolog moniter BS trend Renal insufficiency- due to sepsiis improved moniter renal COPD (chronic obstructive pulmonary disease)- no issue anemia- S/p surgery 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 Nurse Progress Note by Nirmala Quintana RN at 03/08/142225 Author: Nirmala Quintana RN Service: (none) Author Type: Registered Nurse Filed: 03/08/142226 Date of Service: 03/08/142225 Status: Signed Senior Consulting Manager: Nirmala Quintana RN (Registered Nurse) Provided Vanco 2 hours early d/t Peace's request for a new schedule that will work with HH and transition home. Schedule of all IV ABX will be changed/ rescheduled overnight and into tomorrow morning so that patient will be Able to be compliant with assistance of family and HH schedules Nirmala Quintana RN 03/08/14 @ 222 Patrick Blanco MD - 03/08/2014 5:15 PM PSTFormatting of this note might be different from the or iginal. Progress Notes by Patrick Marie MD at 03/08/141714 Author: Patrick Marie MD Service: Hospitalist Author Type: Physician Filed: 03/08/142244 Date of Service: 03/08/141714 Status: Signed Senior Consulting Manager: Patrick Marie MD (Physician) [facility] Service: Hospitalist Progress Note Hospital Day: LOS: 11 days Patient Summary per : Ms. Wright is a 58-year-old female who presented to [facility] ED with vulvar abscess, sepsis, and hypotension. She had transient hypotension which resp onded well to fluid challenge. She was started on broad-spectrum antibiotics. Dr. Aneta pratt as consulted. She underwent the labial I and D with packing done. On day 3 of her hospital s min, she started having left flank pain and left groin pain. A CT done of the left lower abd omen showed extension of the infection into the left groin. General surgery was consulted. S he was taken to the OR. They found necrotic fat tissue with cellulitis but did not find any necrotizing fasciitis. She was debrided and wound VAC was placed. She underwent a second ally ridement 2 days ago. She is clinically much improved from the infection. Diabetes is well co ntrolled. She is still on broad-spectrum antibiotics. ID is following along. She has unfortu nately developed thrombocytopenia which we think is secondary to meropenem use. ID will marina chase decide on her antibiotics. She will require a wound VAC. Case management has been inform ed. Anticipate discharge in the next couple of days. Subjective and Events Overnight: no new complaints and pain at surgical site in the ab domen is much better today ,no chest pain ,sob,fever,BPR or any other complaints. Scheduled Medications aspirin 81 mg Oral Daily with breakfast calcium-vitamin D 2 tablet Oral BID cholecalciferol 1,000 Units Oral Daily clindamycin 600 mg Intravenous Q8H ferrous sulfate (65 FE) 65 mg of iron Oral Daily with breakfast insulin aspart 0-10 Units Subcutaneous TID AC insulin aspart 0-5 Units Subcutaneous Nightly insulin aspart 8 Units Subcutaneous TID AC insulin glargine 20 Units Subcutaneous BID lactobacillus 1 packet Oral 4x Daily meropenem 1 g Intravenous Q8H miconazole Topical BID omeprazole 20 mg Oral QAM AC PARoxetine 20 mg Oral QAM multivitamin & minerals w iron/FA 1 tablet Oral Daily with breakfast sodium chloride 0.9 % 10 mL Intravenous Q12H SULEMAN vancomycin 1,000 mg Intravenous Q12H Continuous Infusions dextrose PRN Medications acetaminophen, acetaminophen, dextrose, dextrose, dextrose, glucagon, glucagon, hydrALAZINE , HYDROmorphone, HYDROmorphone, lidocaine, magnesium sulfate, magnesium sulfate, magnesium s ulfate, ondansetron, ondansetron, oxyCODONE, phosphorus, polyethylene glycol, potassium chlo ride, potassium chloride, potassium chloride, sodium chloride 0.9 %, sodium chloride 0.9 %, sodium phosphate IVPB 20 mmol, sodium phosphate IVPB 45 mmol, zolpidem OBJECTIVE Vital Signs: BP 127/60 | Pulse 72 | Temp(Src) 98 F (36.7 C) (Oral) | Resp 16 | Ht 1.575 m (5' 2") | Wt 107.4 kg (236 lb 12.4 oz) | BMI 43.30 kg/m2 | SpO2 95% | ? No Physical Exam General Appearance: Alert, cooperative, no distress, appears stated age Lungs: Clear to auscultation bilaterally, respirations unlabored Heart: Regular rate and rhythm, S1 and S2 normal, no murmur, rub or gallop Abdomen: L groin mild tenderness With wound vac Extremities: Extremities normal, atraumatic, no cyanosis or edema Pulses: 2+ and symmetric all extremities Neurologic: CNII-XII intact, normal strength, sensation and reflexes throughout Groin exam deferred DATA Recent Labs Lab 03/08/14 0426 03/07/14 0415 03/06/14 0418 03/05/14 0319 WBC 7.4 8.7 8.8 11.3* HGB 7.9* 8.2* 8.0* 7.8* HCT 24.5* 25.7* 24.8* 24.9* PLT 82* 72* 62* 60* NEUTOPHILPCT 71.2 -- 75.7 79.1 MONOPCT 9.5 -- 9.4 7.6 Recent Labs Lab 03/08/14 0426 03/05/14 0319 03/04/14 0535 NA 141 139 138 K 3.3* 3.6 3.8 CL 107 109 111* CO2 31 23 24 BUN 4* 5* 6* CREATININE 0.74 0.82 0.83 PROT 5.7* 5.3* 5.3* BILITOT 0.4 0.4 0.3 ALT 7* 8* 10 AST 14 17 15 Phosphorus: Lab Results Component Value Date PHOS 4.1 03/08/2014 No components found with this basename: LABALBU, Recent Labs Lab 03/08/14 04203/07/14 0415 03/06/14 1502 MG 1.8 1.7 1.8 No results found for this basename: AMYLASE, in the last 168 hours No results found for this basename: PHART, PO2ART, TVN8JYN, H5FQJSIW, BEART, in the last 1 68 hours No results found for this basename: APTT, INR, PTT, in the last 168 hours No results found for this basename: TSH, T3FREE, FREET4, in the last 168 hours Recent Labs Lab 03/02/14 0413 CKTOTAL 95 Radiology No results found. PROBLEM LIST Principal Problem: Vulvar abscess Active Problems: Sepsis(995.91) DM2 (diabetes mellitus, type 2) Renal insufficiency COPD (chronic obstructive pulmonary disease) Resolved Problems: * No resolved hospital problems. * ASSESSMENT & PLAN 1. Sepsis secondary to valvular abscess extending into groin, status post I andD Of the vu lva and L groin with wound vac in place Doing well though continue to have pain Plan: continue on vancomycin and clindamycin as per ID till 16 March Continue on wound vac 2.Diabetes. Blood sugar well controlled. Plan:Continue Lantus 20 units and insulin sliding scale. 3.Thrombocytopenia resolving after stopping heparin and upto 80s up from 72 yesterday . 4. Acute kidney injury, Resolved. 5. Depression. Continue Paxil. 6.Anemia sec to daily blood draws,blood loss during surgery and VISHAL Hb 7.9 today Plan:continue with MV and iron supplement 7 DVT PPx on stocking and avoid any coagulant as patient has thrombocytopenia Code Status: Full Code PATRICK MARIE MD 03/08/2014 5:15 PM onversion Transactio n, Provider Unknown - 03/08/2014 3:26 PM PST Nurse Progress Note by Esther Oakley RN at 03/08/14 1526 Author: Esther Oakley RN Service: Wound/Ostomy Care Author Type: Registered Nurse Filed: 03/08/14 1540 Date of Service: 03/08/141525 Status: Signed Senior Consulting Manager: Esther Oakley RN (Registered Nurse) [facility] Service: Wound Care Hospital Day: LOS: 11 days Post-Op Day: 4 Days Post-Op SUBJECTIVE Wound care came to see pt today to change NPWT dressing to surgical incisions from I&D of labial abscess. OBJECTIVE Wound #1: Classification: Surgical Wound Location:left labia Drainage Amount:Small Drainage Type:Sero-Sanguinous Wound Odor After Wound is Cleaned:None Periwound Skin:pealing Wound Size:8 (cm) Length, 3 (cm) Width and 2 (cm) Depth Tunnelin.5 (cm) Length at 12:00 Wound Bed:Moist and Red Wound Exam:open Wound Infection: none noted Wound # 2: Classification: Surgical Wound Location:left groin Drainage Amount:Small Drainage Type:Sero-Sanguinous Wound Odor After Wound is Cleaned:None Periwound Skin:Erythema, Denuded and pealing Wound Size:1 (cm) Length, 4 (cm) Width and 6 (cm) Depth Wound Bed:Moist and Red Wound Exam:open Wound Infection: none noted Wound # 3: Classification: Surgical Wound Location:left flank Drainage Amount:Large Drainage Type:Serous Wound Odor After Wound is Cleaned:None Periwound Skin:clean dry and intact Wound Size:0.5 (cm) Length, 3 (cm) Width and 9 (cm) Depth Wound Bed:Moist and unable to visualize base of wound Wound Exam:open and copious, thin, serous drainage Wound Infection: none noted PROBLEM LIST Principal Problem: Vulvar abscess Active Problems: Sepsis(995.91) DM2 (diabetes mellitus, type 2) Renal insufficiency COPD (chronic obstructive pulmonary disease) ASSESSMENT & PLAN Classification: Surgical Wound removal of existing dressing visual inspection cleansing with wound cleansing solution No sting skin prep around incision Flank incision drained copious amount of fluid when probing for measurement. Incision was allowed to drain until no further fluid ran from it Filled with Aquacel Ag rope and covered with bordered foam. Negative Pressure Wound Therapy initiated/continued as follows: Newly initiated NPWT ?: no Number of foam pieces removed: 6; 2 white, 4 black NPWT Cycle: Continuous NPWT Foam Type: black foam and white foam Number of Pieces :6; 2 white, 4 black NPWT Contact Layer: none NPWT Suction: Other: 150 mmHg NPWT Canister Changed: no NPWT Frequency of Dressing Changes: Three times per week, Next dressing change due Tuesday Discharge plan: pt is hoping to go home with home health but RN explains that d/t anatomica l placement of dressing, when pt moves in bed or gets up to ambulate, NPWT dressing will not hold a seal. I explained to the pt that if the dressing is without suction for 2 hours it h as to be removed and replaced so if this happens at home, she may not be able to get someone to come out and help with the dressing within that window of time and multiple dressing daria nges may be required. Pt maintained that she did not want to go to SNF but wanted to go home and was willing to take that chance. Home vac has been applied for and [place] from [place] [employer] stated that her NPWT for home should be approved today though at this time it still has not been. Thank you for allowing me to participate in the care of this patient. Please call if there are any additional questions. Esther Oakley RN 3:26 PM 03/08/2014 lmarli, Amanda Valle PT - 03/08/2014 3:04 PM PST Therapy Progress Note by Amanda Hollis PT at 03/08/14 8948 Author: Amanda Hollis PT Service: (none) Author Type: Physical Therapist Filed: 03/08/14 6961 Date of Service: 03/08/14 1504 Status: Signed Senior Consulting Manager: Amanda Hollis PT (Physical Therapist) 03/08/14 1262 PT Last Visit PT Received On 03/08/14 Reason for Treatment Other (comment);Deconditioning (vulvar abscess/sepsis) Requires PT Follow Up On hold (see note below) Other Comments Comments Spoke w/ RN. Pt is ambulating with supervision in room. However, issues with jose carlos ssing and wound vac when ambulating. RN requests to hold PT at this time, as her dressing w as just changed onversion Transact ion, Provider Unknown - 03/08/2014 2:20 PM PSTFormatting of this note might be different fr om the original. Case Management by AMY Bryson at 03/08/14 8542 Author: AMY Bryson Service: (none) Author Type: Professor Of French Filed: 03/08/14 5681 Date of Service: 03/08/14 1420 Status: Addendum Senior Consulting Manager: AMY Bryson (Professor Of French) Related Notes: Original Note by AMY Bryson (Professor Of French) filed at 03/08/14 1485 CM educated pt regarding SNF placement but pt refused stating she just wants to go home. [facility] and [facility] pt will discharge on Tuesday. [facility] informed CM they have no availability during the weekend. CM faxed a referral to [facility] but they were unable to obtain insurance auth. Therefore there are no Home ealt agencies available to provide home IV antibiotic therapy during the weekend. CM will a rrange for discharge on Tuesday. Pt had no other resource concerns at this time. Dell CORDERO onaugustine stephen Transaction, Provider Unknown - 03/08/2014 11:52 AM PST Progress Notes by Jaelyn Baez RPH at 03/08/14 115 Author: Jaelyn Baez RPH Service: (none) Author Type: Pharmacist Filed: 03/08/14 1152 Date of Service: 03/08/141151 Status: Signed Senior Consulting Manager: Jaelyn Baez RPH (Pharmacist) Clinical Pharmacy Note: Pharmacy Dosing Vancomycin; Day 9 The level this am was 16.3--more useful because we are almost at steady state. Desired range is 15-20, Continue with current regimen. Vancomycin 1 Gram every 12 hours. Jaelyn Baez RP [id number] onaugustine stephen Transaction, Provider Unknown - 03/08/2014 11:15 AM PST Progress Notes by Caity Carlos RD at 03/08/14 1115 Author: Caity Carlos RD Service: (none) Author Type: Registered Dietitian Filed: 03/08/14 1121 Date of Service: 03/08/141114 Status: Signed Senior Consulting Manager: Caity Carlos RD (Registered Dietitian) Nutrition Assessment and Recommendations Assessment: Wt history: Wt up 8 kg since admit. Nutritionally pertinent labs:K low. BG elevated at times. Current intake:1800 kcal diabetic diet ordered. Pt reports increased po intake recently. Ate about 50% of breakfast - eggs, dowd, and cereal. Pt has been receiving Glucerna TID, b ut only drinking about 1 daily. Intervention: Glucerna once daily Monitor po intake Discussed adequate protein for wound healing Monitoring: Will follow up in five days or as indicated Neo Connell MD - 03/08/2014 9:03 AM PSTFormatting of this note might be different from the janine ginal. Progress Notes by Neo Loyola MD at 03/08/14 0903 Author: Neo Loyola MD Service: General Surgery Author Type: Physician Filed: 03/08/14908 Date of Service: 03/08/14902 Status: Signed Senior Consulting Manager: Neo Loyola MD (Physician) [facility] Service: General Surgery Progress Note Hospital Day: LOS:Hospital Day: 12 Post-Op Day: 4 Days Post-Op SUBJECTIVE No complaints. "Feeling better" OBJECTIVE Vital Signs: Filed Vitals: 03/08/14 0740 BP: 153/72 Pulse: 72 Temp: 98.1 F (36.7 C) Resp: 16 SpO2: 93% Filed Vitals: 03/07/14 1918 03/07/14 2308 03/08/14 0302 03/08/14 0740 BP: 170/74 153/72 131/62 153/72 Pulse: 96 77 71 72 Temp: 97.8 F (36.6 C) 98.2 F (36.8 C) 98.4 F (36.9 C) 98.1 F (36.7 C) TempSrc: Oral Oral Oral Oral Resp: 22 18 16 16 Height: Weight: SpO2: 91% 91% 94% 93% Intake/Output Summary (Last 24 hours) at 03/08/14902 Last data filed at 03/08/14 0530 Gross per 24 hour Intake 1150 ml Output 4150 ml Net -3000 ml DATA Lab Results Component Value Date/Time WBC 7.4 03/08/2014 4:26 AM HGB 7.9* 03/08/2014 4:26 AM HCT 24.5* 03/08/2014 4:26 AM PLT 82* 03/08/2014 4:26 AM NA 141 03/08/2014 4:26 AM K 3.3* 03/08/2014 4:26 AM CREATININE 0.74 03/08/2014 4:26 AM AST 14 03/08/2014 4:26 AM AST 17 03/05/2014 3:19 AM AST 15 03/04/2014 5:35 AM ALT 7* 03/08/2014 4:26 AM ALT 8* 03/05/2014 3:19 AM ALT 10 03/04/2014 5:35 AM PHYSICAL afeb vss WBC is normal Plt count is improving off heparin CT- Gaseous tract is expected. No new abscess. Bilateral pleural effusions note ASSESSMENT Clinically improving, I'm concerned about pt's mobility and availability of help at home. PLAN Per ID and Hospitalist Anticipate several weeks of wound care. NEO LOYOLA MD 03/08/2014 9:03 AM Patrick Quach MD - 1 05/08/2013 4:24 PM PST Progress Notes by Patrick Marie MD at 03/07/14 1624 Author: Patrick Marie MD Service: Hospitalist Author Type: Physician Filed: 03/07/14 4681 Date of Service: 03/07/141623 Status: Signed Senior Consulting Manager: Patrick Marie MD (Physician) [facility] Service: Hospitalist Progress Note Hospital Day: LOS: 10 days Patient Summary per : Ms. Wright is a 58-year-old female who presented to [facility] ED with vulvar abscess, sepsis, and hypotension. She had transient hypotension which resp onded well to fluid challenge. She was started on broad-spectrum antibiotics. Dr. Aneta pratt as consulted. She underwent the labial I and D with packing done. On day 3 of her hospital s min, she started having left flank pain and left groin pain. A CT done of the left lower abd omen showed extension of the infection into the left groin. General surgery was consulted. S was taken to the OR. They found necrotic fat tissue with cellulitis but did not find any necrotizing fasciitis. She was debrided and wound VAC was placed. She underwent a second ally ridement 2 days ago. She is clinically much improved from the infection. Diabetes is well co ntrolled. She is still on broad-spectrum antibiotics. ID is following along. She has unfortu nately developed thrombocytopenia which we think is secondary to meropenem use. ID will marina lly decide on her antibiotics. She will require a wound VAC. Case management has been inform ed. Anticipate discharge in the next couple of days. Subjective and Events Overnight: now new complaints except on going pain 8/10 At woun d vac site ,no chest pain ,sob,fever,BPR or any other complaints. Scheduled Medications aspirin 81 mg Oral Daily with breakfast calcium-vitamin D 2 tablet Oral BID cholecalciferol 1,000 Units Oral Daily clindamycin 600 mg Intravenous Q8H ferrous sulfate (65 FE) 65 mg of iron Oral Daily with breakfast insulin aspart 0-10 Units Subcutaneous TID AC insulin aspart 0-5 Units Subcutaneous Nightly insulin aspart 8 Units Subcutaneous TID AC insulin glargine 20 Units Subcutaneous BID lactobacillus 1 packet Oral 4x Daily magnesium sulfate 1 g Intravenous Once Magnesium 500 mg Oral BID meropenem 1 g Intravenous Q8H miconazole Topical BID omeprazole 20 mg Oral QAM AC PARoxetine 20 mg Oral QAM multivitamin & minerals w iron/FA 1 tablet Oral Daily with breakfast sodium chloride 0.9 % 10 mL Intravenous Q12H SULEMAN vancomycin 1,000 mg Intravenous Q12H Continuous Infusions dextrose PRN Medications acetaminophen, acetaminophen, dextrose, dextrose, dextrose, glucagon, glucagon, hydrALAZINE , HYDROmorphone, HYDROmorphone, lidocaine, magnesium sulfate, magnesium sulfate, magnesium s ulfate, ondansetron, ondansetron, oxyCODONE, phosphorus, polyethylene glycol, potassium chlo ride, potassium chloride, potassium chloride, sodium chloride 0.9 %, sodium chloride 0.9 %, sodium phosphate IVPB 20 mmol, sodium phosphate IVPB 45 mmol, zolpidem OBJECTIVE Vital Signs: BP 129/61 | Pulse 86 | Temp(Src) 98.5 F (36.9 C) (Oral) | Resp 18 | Ht 1.575 m (5' 2") | Wt 107.4 kg (236 lb 12.4 oz) | BMI 43.30 kg/m2 | SpO2 91% | ? No Physical Exam General Appearance: Alert, cooperative, no distress, appears stated age Lungs: Clear to auscultation bilaterally, respirations unlabored Heart: Regular rate and rhythm, S1 and S2 normal, no murmur, rub or gallop Abdomen: L groin tenderness With wound vac Extremities: Extremities normal, atraumatic, no cyanosis or edema Pulses: 2+ and symmetric all extremities Neurologic: CNII-XII intact, normal strength, sensation and reflexes throughout Groin exam deferred DATA Recent Labs Lab 03/07/14 0415 03/06/14 0418 03/05/14 03103/04/14 0535 WBC 8.7 8.8 11.3* 11.9* HGB 8.2* 8.0* 7.8* 8.0* HCT 25.7* 24.8* 24.9* 25.4* PLT 72* 62* 60* 86* NEUTOPHILPCT -- 75.7 79.1 -- MONOPCT -- 9.4 7.6 -- Recent Labs Lab 03/05/14 0319 03/04/14 0535 03/03/14 0428 NA 139 138 139 K 3.6 3.8 3.8 CL 109 111* 112* CO2 23 24 21* BUN 5* 6* 6* CREATININE 0.82 0.83 0.61 PROT 5.3* 5.3* 5.2* BILITOT 0.4 0.3 0.4 ALT 8* 10 10 AST 17 15 19 Phosphorus: Lab Results Component Value Date PHOS 5.1* 03/07/2014 No components found with this basename: LABALBU, Recent Labs Lab 03/07/14 0415 03/06/14 1502 03/06/14 0418 MG 1.7 1.8 1.6* No results found for this basename: AMYLASE, in the last 168 hours No results found for this basename: PHART, PO2ART, GKD3RWK, B8MPDPLJ, BEART, in the last 1 68 hours No results found for this basename: APTT, INR, PTT, in the last 168 hours No results found for this basename: TSH, T3FREE, FREET4, in the last 168 hours Recent Labs Lab 03/02/14 0413 CKTOTAL 95 Radiology No results found. PROBLEM LIST Principal Problem: Vulvar abscess Active Problems: Sepsis(995.91) DM2 (diabetes mellitus, type 2) Renal insufficiency COPD (chronic obstructive pulmonary disease) Resolved Problems: * No resolved hospital problems. * ASSESSMENT & PLAN 1. Sepsis secondary to valvular abscess extending into groin, status post I andD Of the vu lva and L groin with wound vac in place Doing well though continue to have pain Plan: continue on vancomycin and clindamycin as per ID Appreciate input 2.Diabetes. Blood sugar well controlled. Plan:Continue Lantus 20 units and insulin sliding scale. 3.Thrombocytopenia resolving after stopping heparin and upto 72 from 62 yesterday . 4. Acute kidney injury, Resolved. 5. Antibiotic-associated diarrhea. Clostridium difficile negative.Cont Lactinex.prn immodiu m 6. Depression. Continue Paxil. 7.Anemia sec to daily blood draws,blood loss during surgery and VISHAL Plan:continue with MV and iron supplement 9 DVT PPx on stocking and avoid any coagulant as patient has thrombocytopenia Code Status: Full Code PATRICK MARIE MD 03/07/2014 4:24 PM Echsheridan, Watson Smith MD - 03/07/2014 4:19 PM PST Progress Notes by Watson Negrete MD at 03/07/14 1009 Author: Watson Negrete MD Service: Infectious Disease Author Type: Physician Filed: 03/07/14 7702 Date of Service: 03/07/141618 Status: Signed Senior Consulting Manager: Watson Negrete MD (Physician) [facility] Service: Infectious Diseases Progress Note Hospital Day: LOS: 10 days Post-Op Day: 3 Days Post-Op CC: f/u necrotizing infection SUBJECTIVE/OVERNIGHT EVENTS Feels better, still some pain. CT scan no pus pockets. MEDICATIONS: aspirin 81 mg Oral Daily with breakfast calcium-vitamin D 2 tablet Oral BID cholecalciferol 1,000 Units Oral Daily clindamycin 600 mg Intravenous Q8H ferrous sulfate (65 FE) 65 mg of iron Oral Daily with breakfast insulin aspart 0-10 Units Subcutaneous TID AC insulin aspart 0-5 Units Subcutaneous Nightly insulin aspart 8 Units Subcutaneous TID AC insulin glargine 20 Units Subcutaneous BID lactobacillus 1 packet Oral 4x Daily magnesium sulfate 1 g Intravenous Once Magnesium 500 mg Oral BID meropenem 1 g Intravenous Q8H miconazole Topical BID omeprazole 20 mg Oral QAM AC PARoxetine 20 mg Oral QAM multivitamin & minerals w iron/FA 1 tablet Oral Daily with breakfast sodium chloride 0.9 % 10 mL Intravenous Q12H SULEMAN vancomycin 1,000 mg Intravenous Q12H dextrose PRN Medications acetaminophen, acetaminophen, dextrose, dextrose, dextrose, glucagon, glucagon, hydrALAZINE , HYDROmorphone, HYDROmorphone, lidocaine, magnesium sulfate, magnesium sulfate, magnesium s ulfate, ondansetron, ondansetron, oxyCODONE, phosphorus, polyethylene glycol, potassium chlo ride, potassium chloride, potassium chloride, sodium chloride 0.9 %, sodium chloride 0.9 %, sodium phosphate IVPB 20 mmol, sodium phosphate IVPB 45 mmol, zolpidem PHYSICAL EXAM Vital Signs: BP 129/61 | Pulse 86 | Temp(Src) 98.5 F (36.9 C) (Oral) | Resp 18 | Ht 1.575 m (5' 2") | Wt 107.4 kg (236 lb 12.4 oz) | BMI 43.30 kg/m2 | SpO2 91% | ? No Temp (24hrs), Av.3 F (36.8 C), Min:97.8 F (36.6 C), Max:98.5 F (36.9 C) General Appearance: Alert, cooperative, no distress Head: Normocephalic, without obvious abnormality, atraumatic Eyes: PERRL, conjunctiva/corneas clear, EOM's intact, fundi benign, both eyes Throat: Lips, mucosa, and tongue normal; teeth and gums normal Neck: Supple, symmetrical, trachea midline, no adenopathy; thyroid: no enlargement/tenderness/nodules; no carotid bruit or JVD Back: Symmetric, no curvature, ROM normal, no CVA tenderness Lungs: Clear to auscultation bilaterally, respirations unlabored Chest Wall: No tenderness or deformity Heart: Regular rate and rhythm, S1 and S2 normal, no murmur, rub or gallop Abdomen: Soft, mildly tender let flank towards back, bowel sounds active all four quadr ants, no masses, no organomegaly Extremities: Extremities normal, atraumatic, no cyanosis or edema Pulses: 2+ and symmetric all extremities Skin: Skin color, texture, turgor normal, no rashes or lesions Lymph nodes: Cervical, supraclavicular, and axillary nodes normal Neurologic: Alert and oriented to time, place and person. CNII-XII intact, normal strengt h, sensation and reflexes throughout. No focal neurological deficits Venous access: L PICC, PIV No signs of infection. LABS: All labs reviewed. CBC: Lab Results Component Value Date WBC 8.7 03/07/2014 RBC 3.09* 03/07/2014 HGB 8.2* 03/07/2014 HCT 25.7* 03/07/2014 MCV 83.4 03/07/2014 MCH 26.7* 03/07/2014 MCHC 32.1 03/07/2014 RDW 47.7 03/07/2014 PLT 72* 03/07/2014 MPV 10.4 03/07/2014 DIFFTYPE MANUAL 03/07/2014 CMP: Lab Results Component Value Date NA 139 03/05/2014 K 3.6 03/05/2014 CL 109 03/05/2014 CO2 23 03/05/2014 ANIONGAP 11 03/05/2014 GLUF 101* 03/05/2014 BUN 5* 03/05/2014 CREATININE 0.82 03/05/2014 BCR 6 03/05/2014 CA 7.7* 03/05/2014 PROT 5.3* 03/05/2014 ALB 2.0* 03/05/2014 GLOB 3.3 03/05/2014 BILITOT 0.4 03/05/2014 ALP 113 03/05/2014 AST 17 03/05/2014 ALT 8* 03/05/2014 EGFR >60 03/05/2014 MICROBIOLOGY Results No results found for the last 72 hours. IMAGING Reviewed images of : CT scan, no occult abscesses. PROBLEM LIST Principal Problem: Vulvar abscess Active Problems: Sepsis(995.91) DM2 (diabetes mellitus, type 2) Renal insufficiency COPD (chronic obstructive pulmonary disease) ASSESSMENT & PLAN 1. Necrotizing soft tissue infection of the perineum and abdominal wall, no evidence of res idual abscess. Will plan for iv atbx until 03/16. Then wound care until closure. 2. Severe sepsis with hypotension. Resolved with improvement in leukocytosis, bandemia and fever. 3. Polymicrobial infection, likely enterococcus, enterobacteriaceae and anaerobes. 4. 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 Cont beta lactam. Will sign off. Please call with questions. F/u clinic 03/18. Watson Negrete MD 03/07/2014 4:20 PM Neo Echols MD - 03/07/2014 8:37 AM PST Progress Notes by Neo Loyola MD at 03/07/14 0837 Author: Neo Loyola MD Service: General Surgery Author Type: Physician Filed: 03/07/14 0845 Date of Service: 03/07/14836 Status: Signed Senior Consulting Manager: Neo Loyola MD (Physician) [facility] Service: General Surgery Progress Note Hospital Day: LOS:Hospital Day: 11 Post-Op Day: 3 Days Post-Op SUBJECTIVE No complaints. Less pain. VAC seal is holding. Tolerated bedside dressing change. OBJECTIVE Vital Signs: Filed Vitals: 03/07/14 08 BP: 151/66 Pulse: 73 Temp: 97.8 F (36.6 C) Resp: 16 SpO2: 93% Filed Vitals: 03/06/14 2043 03/06/14 2324 03/07/14 0428 03/07/14820 BP: 140/64 136/64 179/85 151/66 Pulse: 98 81 87 73 Temp: 98.2 F (36.8 C) 98.4 F (36.9 C) 98.3 F (36.8 C) 97.8 F (36.6 C) TempSrc: Oral Oral Oral Oral Resp: 18 16 16 16 Height: Weight: 107.4 kg (236 lb 12.4 oz) SpO2: 91% 91% 94% 93% Intake/Output Summary (Last 24 hours) at 03/07/14 0838 Last data filed at 03/07/14 0433 Gross per 24 hour Intake 1450 ml Output 4900 ml Net -3450 ml DATA Lab Results Component Value Date/Time WBC 8.7 03/07/2014 4:15 AM HGB 8.2* 03/07/2014 4:15 AM HCT 25.7* 03/07/2014 4:15 AM PLT 72* 03/07/2014 4:15 AM NA 139 03/05/2014 3:19 AM K 3.6 03/05/2014 3:19 AM CREATININE 0.82 03/05/2014 3:19 AM AST 17 03/05/2014 3:19 AM AST 15 03/04/2014 5:35 AM AST 19 03/03/2014 4:28 AM ALT 8* 03/05/2014 3:19 AM ALT 10 03/04/2014 5:35 AM ALT 10 03/03/2014 4:28 AM PHYSICAL afeb vss Mobilizing third-spaced fluids plt count is up slightly Left flank is less sensitive ASSESSMENT Clinically improved - I'm not sure if CT will tell us much but peace of mind is important. PLAN Surgically appears stable and currently I have no plans to return to OR. VAC until wound i s closed. Wound center or [facility] or [facility] for VAC care. NEO LOYOLA MD 03/07/2014 8:38 AM onversion Transaction , Provider Unknown - 03/07/2014 8:11 AM PST Progress Notes by Jaelyn Baez RPH at 03/07/14810 Author: Jaelyn Baez RPH Service: (none) Author Type: Pharmacist Filed: 03/07/14810 Date of Service: 03/07/14810 Status: Signed Senior Consulting Manager: Jaelyn Baez RPH (Pharmacist) Clinical Pharmacy Note: Pharmacy Dosing Vancomycin; Day 8 Vancomycin trough reported at 0632 to be 19.3 This dose is not at steady state, so don't know what this actually tells us. Will reorder trough for 0700 tomorrow for better information SCr will need to be ordered tomorrow as no SCR ordered or resulted for 4 days.--will order Jaelyn Baez RP onver zafar Transaction, Provider Unknown - 03/07/2014 6:34 AM PST Nurse Progress Note by Juliocesar Sampson RN at 03/07/14633 Author: Juliocesar Sampson RN Service: (none) Author Type: Registered Nurse Filed: 03/07/1435 Date of Service: 03/07/14633 Status: Signed Senior Consulting Manager: Juliocesar Sampson RN (Registered Nurse) Wound Vac displaced during ambulation. Resealed area using KCI tape and eakins ring. 150mg Continuous suction achieved and maintained. WCTM. onver zafar Transaction, Provider Unknown - 03/06/2014 10:03 PM PST Progress Notes by Harry Briones RPH at 03/06/142202 Author: Harry Briones RPH Service: (none) Author Type: Pharmacist Filed: 03/06/142202 Date of Service: 03/06/142202 Status: Signed Senior Consulting Manager: Harry Briones RPH (Pharmacist) vanco trough elevated at 20.7- will reduce vanco to 1000mg IV q12h. Next dsoe due at 0800 on 03/07. Will order trough for 03/08 at 0700. Watson Awad MD - 03/06/2014 4:29 PM PST Progress Notes by Watson Negrete MD at 03/06/141628 Author: Watson Negrete MD Service: Infectious Disease Author Type: Physician Filed: 03/06/146 Date of Service: 03/06/141628 Status: Signed Senior Consulting Manager: Watson Negrete MD (Physician) [facility] Service: Infectious Diseases Progress Note Hospital Day: LOS: 9 days Post-Op Day: 2 Days Post-Op CC: f/u necrotizing infection SUBJECTIVE/OVERNIGHT EVENTS Afebrile, ambulatory. Appetite is ok. Still with tenderness left flank towards her back. MEDICATIONS: aspirin 81 mg Oral Daily with breakfast calcium-vitamin D 2 tablet Oral BID cholecalciferol 1,000 Units Oral Daily clindamycin 600 mg Intravenous Q8H ferrous sulfate (65 FE) 65 mg of iron Oral Daily with breakfast insulin aspart 0-10 Units Subcutaneous TID AC insulin aspart 0-5 Units Subcutaneous Nightly insulin aspart 8 Units Subcutaneous TID AC insulin glargine 20 Units Subcutaneous BID lactobacillus 1 packet Oral 4x Daily magnesium sulfate 1 g Intravenous Once Magnesium 500 mg Oral BID meropenem 1 g Intravenous Q8H miconazole Topical BID omeprazole 20 mg Oral QAM AC PARoxetine 20 mg Oral QAM multivitamin & minerals w iron/FA 1 tablet Oral Daily with breakfast sodium chloride 0.9 % 10 mL Intravenous Q12H SULEMAN vancomycin 11 mg/kg Intravenous Q12H dextrose PRN Medications acetaminophen, acetaminophen, dextrose, dextrose, dextrose, glucagon, glucagon, hydrALAZINE , HYDROmorphone, HYDROmorphone, lidocaine, magnesium sulfate, magnesium sulfate, magnesium s ulfate, ondansetron, ondansetron, oxyCODONE, phosphorus, polyethylene glycol, potassium chlo ride, potassium chloride, potassium chloride, sodium chloride 0.9 %, sodium chloride 0.9 %, sodium phosphate IVPB 20 mmol, sodium phosphate IVPB 45 mmol, zolpidem PHYSICAL EXAM Vital Signs: BP 141/72 | Pulse 82 | Temp(Src) 98 F (36.7 C) (Axillary) | Resp 16 | Ht 1.575 m (5' 2" ) | Wt 113.8 kg (250 lb 14.1 oz) | BMI 45.88 kg/m2 | SpO2 90% | ? No Temp (24hrs), Av.4 F (36.9 C), Min:98 F (36.7 C), Max:99.1 F (37.3 C) General Appearance: Alert, cooperative, no distress Head: Normocephalic, without obvious abnormality, atraumatic Eyes: PERRL, conjunctiva/corneas clear, EOM's intact, fundi benign, both eyes Nose: Nares normal, septum midline, mucosa normal, no drainage or sinus tenderness Throat: Lips, mucosa, and tongue normal; teeth and gums normal Neck: Supple, symmetrical, trachea midline, no adenopathy; thyroid: no enlargement/tenderness/nodules; no carotid bruit or JVD Back: Symmetric, no curvature, ROM normal, no CVA tenderness Lungs: Clear to auscultation bilaterally, respirations unlabored Chest Wall: No tenderness or deformity Heart: Regular rate and rhythm, S1 and S2 normal, no murmur, rub or gallop Abdomen: Soft, there is still significant tenderness over left flank towards her back, otherwise bowel sounds active all four quadrants, no masses, no organomegaly Extremities: Extremities normal, atraumatic, no cyanosis or edema Pulses: 2+ and symmetric all extremities Skin: Skin color, texture, turgor normal, no rashes or lesions Lymph nodes: Cervical, supraclavicular, and axillary nodes normal Neurologic: Alert and oriented to time, place and person. CNII-XII intact, normal strengt h, sensation and reflexes throughout. No focal neurological deficits Venous access: L PICC No signs of infection. Wound vac in place, edema in labia, less erythema. Vazquez in place. LABS: All labs reviewed. CBC: Lab Results Component Value Date WBC 8.8 03/06/2014 RBC 2.99* 03/06/2014 HGB 8.0* 03/06/2014 HCT 24.8* 03/06/2014 MCV 82.9 03/06/2014 MCH 26.7* 03/06/2014 MCHC 32.2 03/06/2014 RDW 47.7 03/06/2014 PLT 62* 03/06/2014 MPV 11.0 03/06/2014 DIFFTYPE AUTOMATED 03/06/2014 CMP: Lab Results Component Value Date NA 139 03/05/2014 K 3.6 03/05/2014 CL 109 03/05/2014 CO2 23 03/05/2014 ANIONGAP 11 03/05/2014 GLUF 101* 03/05/2014 BUN 5* 03/05/2014 CREATININE 0.82 03/05/2014 BCR 6 03/05/2014 CA 7.7* 03/05/2014 PROT 5.3* 03/05/2014 ALB 2.0* 03/05/2014 GLOB 3.3 03/05/2014 BILITOT 0.4 03/05/2014 ALP 113 03/05/2014 AST 17 03/05/2014 ALT 8* 03/05/2014 EGFR >60 03/05/2014 MICROBIOLOGY Results No results found for the last 72 hours. IMAGING Reviewed images of : no new images for review PROBLEM LIST Principal Problem: Vulvar abscess Active Problems: Sepsis(995.91) DM2 (diabetes mellitus, type 2) Renal insufficiency COPD (chronic obstructive pulmonary disease) ASSESSMENT & PLAN 1. Necrotizing soft tissue infection of the perineum and abdominal wall. Still quite tender over posterior left flank. To err on the side of caution and due to severity of this infection, will CT scan abd/pelvi s again to identify any pus pockets that may cause relapse in the future or that may need to be followed up until resolution with CT (in case not drainable). 2. Severe sepsis with hypotension. Resolved with improvement in leukocytosis, bandemia and fever. 3. Polymicrobial infection 4. Thrombocytopenia: Heparin on hold. Platelet count not dropping more after d/c heparin. Repeat platelet count in the am. Discussed with Dr. Jax Negrete MD 03/06/2014 4:29 PM Rupesh Delgado MD - 03/06/2014 3:13 PM PSTFormatting of this note might be different from the or iginal. Progress Notes by Rupesh Camara MD at 03/06/14 2311 Author: Rupesh Camara MD Service: Hospitalist Author Type: Physician Filed: 03/07/14 0635 Date of Service: 03/06/141512 Status: Signed Senior Consulting Manager: Rupesh Camara MD (Physician) Related Notes: Original Note by Rupesh Camara MD (Physician) filed at 03/06/14 8938 [facility] Service: Hospitalist Progress Note Hospital Day: LOS: 9 days SUBJECTIVE Patient Summary: Ms. Wright is a 58-year-old female who presented to the ED with vulva r abscess, sepsis, and hypotension. She had transient hypotension which responded well to fl uid challenge. She was started on broad-spectrum antibiotics. Dr. Kat was consulted. Rosa pulido underwent the labial I and D with packing done. On day 3 of her hospital stay, she started having left flank pain and left groin pain. A CT done of the left lower abdomen showed exte nsion of the infection into the left groin. General surgery was consulted. She was taken to the OR. They found necrotic fat tissue with cellulitis but did not find any necrotizing fasc iitis. She was debrided and wound VAC was placed. She underwent a second debridement 2 days ago. She is clinically much improved from the infection. Diabetes is well controlled. She is still on broad-spectrum antibiotics. ID is following along. She has unfortunately developed thrombocytopenia which we think is secondary to meropenem use. ID will finally decide on he r antibiotics. She will require a wound VAC. Case management has been informed. Anticipate d ischarge in the next couple of days. Events Overnight: Patient tolerated I&D well No CP or SOA Had a BM No headache No ot her complaints Scheduled Medications aspirin 81 mg Oral Daily with breakfast calcium-vitamin D 2 tablet Oral BID cholecalciferol 1,000 Units Oral Daily clindamycin 900 mg Intravenous Q8H ferrous sulfate (65 FE) 65 mg of iron Oral Daily with breakfast insulin aspart 0-10 Units Subcutaneous TID AC insulin aspart 0-5 Units Subcutaneous Nightly insulin aspart 8 Units Subcutaneous TID AC insulin glargine 20 Units Subcutaneous BID lactobacillus 1 packet Oral 4x Daily magnesium sulfate 1 g Intravenous Once Magnesium 500 mg Oral BID meropenem 1 g Intravenous Q8H miconazole Topical BID omeprazole 20 mg Oral QAM AC PARoxetine 20 mg Oral QAM multivitamin & minerals w iron/FA 1 tablet Oral Daily with breakfast sodium chloride 0.9 % 10 mL Intravenous Q12H SULEMAN vancomycin 11 mg/kg Intravenous Q12H Continuous Infusions dextrose PRN Medications acetaminophen, acetaminophen, dextrose, dextrose, dextrose, glucagon, glucagon, hydrALAZINE , HYDROmorphone, HYDROmorphone, lidocaine, magnesium sulfate, magnesium sulfate, magnesium s ulfate, ondansetron, ondansetron, oxyCODONE, phosphorus, polyethylene glycol, potassium chlo ride, potassium chloride, potassium chloride, sodium chloride 0.9 %, sodium chloride 0.9 %, sodium phosphate IVPB 20 mmol, sodium phosphate IVPB 45 mmol, zolpidem OBJECTIVE Vital Signs: BP 141/72 | Pulse 82 | Temp(Src) 98 F (36.7 C) (Axillary) | Resp 16 | Ht 1.575 m (5' 2" ) | Wt 113.8 kg (250 lb 14.1 oz) | BMI 45.88 kg/m2 | SpO2 90% | ? No Physical Exam General Appearance: Alert, cooperative, no distress, appears stated age Lungs: Clear to auscultation bilaterally, respirations unlabored Heart: Regular rate and rhythm, S1 and S2 normal, no murmur, rub or gallop Abdomen: L groin tenderness With wound vac Extremities: Extremities normal, atraumatic, no cyanosis or edema Pulses: 2+ and symmetric all extremities Neurologic: CNII-XII intact, normal strength, sensation and reflexes throughout Groin exam deferred DATA Recent Labs Lab 03/06/14 0418 03/05/14 0319 03/04/14 0535 WBC 8.8 11.3* 11.9* HGB 8.0* 7.8* 8.0* HCT 24.8* 24.9* 25.4* PLT 62* 60* 86* NEUTOPHILPCT 75.7 79.1 -- MONOPCT 9.4 7.6 -- Recent Labs Lab 03/05/1431803/04/14 0535 03/03/14 0428 NA 139 138 139 K 3.6 3.8 3.8 CL 109 111* 112* CO2 23 24 21* BUN 5* 6* 6* CREATININE 0.82 0.83 0.61 PROT 5.3* 5.3* 5.2* BILITOT 0.4 0.3 0.4 ALT 8* 10 10 AST 17 15 19 Phosphorus: Lab Results Component Value Date PHOS 4.4 03/06/2014 No components found with this basename: LABALBU, Recent Labs Lab 03/06/1441703/05/1431803/04/14 0535 MG 1.6* 1.5* 1.5* No results found for this basename: AMYLASE, in the last 168 hours No results found for this basename: PHART, PO2ART, TRP0VFJ, U8KHYMET, BEART, in the last 1 68 hours No results found for this basename: APTT, INR, PTT, in the last 168 hours No results found for this basename: TSH, T3FREE, FREET4, in the last 168 hours Recent Labs Lab 03/02/14 0413 CKTOTAL 95 Radiology No results found. PROBLEM LIST Principal Problem: Vulvar abscess Active Problems: Sepsis(995.91) DM2 (diabetes mellitus, type 2) Renal insufficiency COPD (chronic obstructive pulmonary disease) Resolved Problems: * No resolved hospital problems. * ASSESSMENT & PLAN 1. Sepsis secondary to valvular abscess extending into groin, status post I andD Of the vu lva and L groin with wound vac in place Surgery consult appreciated The culture is polymicr obial Continue broad-spectrum antibiotics, .Appreciate ID consult 2. Diabetes. Blood sugar is actually very well controlled. Continue Lantus sliding scale. 3. Hypokalemia. Replace potassium. 4. DVT prophylaxis.Hold heparin in view of thrombocytopenia. 5. Acute kidney injury, Resolved. Hold olmesartan till clinical condition improves 6. Antibiotic-associated diarrhea. Clostridium difficile negative.Cont Lactinex.prn immodiu m 7. Depression. Continue Paxil. We will streamline the antibiotics once the culture results are back. 8 Anemia Iron def start replacement 9 Thrombocytopenia sec to MERREM monitor Code Status: Full Code Rupesh Camara MD 03/06/2014 3:13 PM Neo Echols MD - 03/06/2014 2:55 PM PST Progress Notes by Neo Loyola MD at 03/06/141454 Author: Neo Loyola MD Service: General Surgery Author Type: Physician Filed: 03/06/141458 Date of Service: 03/06/141454 Status: Signed Senior Consulting Manager: Neo Loyola MD (Physician) [facility] Service: General Surgery Progress Note Hospital Day: LOS:Hospital Day: 10 Post-Op Day: 2 Days Post-Op SUBJECTIVE Feeling better. OBJECTIVE Vital Signs: Filed Vitals: 03/06/14 1230 BP: 141/72 Pulse: 82 Temp: 98 F (36.7 C) Resp: 16 SpO2: 90% Filed Vitals: 03/05/14 2250 03/06/14 0418 03/06/14 0811 03/06/14 1230 BP: 141/63 137/65 143/66 141/72 Pulse: 89 76 82 82 Temp: 98.5 F (36.9 C) 98.2 F (36.8 C) 98.2 F (36.8 C) 98 F (36.7 C) TempSrc: Oral Oral Oral Axillary Resp: 18 18 16 16 Height: Weight: SpO2: 94% 92% 91% 90% Intake/Output Summary (Last 24 hours) at 03/06/14 1455 Last data filed at 03/06/14 1200 Gross per 24 hour Intake 2329 ml Output 6000 ml Net -3671 ml DATA Lab Results Component Value Date/Time WBC 8.8 03/06/2014 4:18 AM HGB 8.0* 03/06/2014 4:18 AM HCT 24.8* 03/06/2014 4:18 AM PLT 62* 03/06/2014 4:18 AM NA 139 03/05/2014 3:19 AM K 3.6 03/05/2014 3:19 AM CREATININE 0.82 03/05/2014 3:19 AM AST 17 03/05/2014 3:19 AM AST 15 03/04/2014 5:35 AM AST 19 03/03/2014 4:28 AM ALT 8* 03/05/2014 3:19 AM ALT 10 03/04/2014 5:35 AM ALT 10 03/03/2014 4:28 AM PHYSICAL WBC now solidly in normal range VAC scheduled for bedside change today ASSESSMENT improving PLAN hopefully will be able to continue treatment on an outpatient basis soon. This all depends on appropriate abx and the ability to continue/change the VAC outside the hospital. NEO LOYOLA MD 03/06/2014 2:55 PM onversion Transaction , Provider Unknown - 03/06/2014 1:28 PM PST Progress Notes by Basilia Turner RN at 03/06/14 1328 Author: Basilia Turner RN Service: Wound/Ostomy Care Author Type: Registered Nurse Filed: 03/06/14 1344 Date of Service: 03/06/141327 Status: Signed Senior Consulting Manager: Basilia Turner RN (Registered Nurse) [facility] Service: Wound Care Hospital Day: LOS: 9 days Post-Op Day: 2 Days Post-Op SUBJECTIVE Patient Summary: Wound care in to change wound vac dressing. Patient was taken to O R on the with Dr. Loyola. Wound was packed with both white and black foam, with a drain sutured to the white foam during this operation. OBJECTIVE Wound #1: Classification: Surgical Wound Location:left labia Drainage Amount:Moderate Drainage Type:Sero-Sanguinous Wound Odor After Wound is Cleaned:None Periwound Skin:Denuded and Macerated Wound Size:7 (cm) Length, 3 (cm) Width and 12 (cm) Depth Wound Bed:Moist, Red and unable to visualize wound base Wound Exam:open and tender Wound Infection: yes Wound # 2: Classification: Surgical Wound Location:left inguinal Drainage Amount:Small Drainage Type:Sero-Sanguinous Wound Odor After Wound is Cleaned:None Periwound Skin:Macerated Wound Size:1 (cm) Length, 4 (cm) Width and 5 (cm) Depth Tunnelin.5 (cm) Depth at 9 o'clock Wound Bed:Moist and Red Wound Exam:open and tender Wound Infection: yes Wound # 3: Classification: Surgical Wound Location:left flank Drainage Amount:Small Drainage Type:Sero-Sanguinous Wound Odor After Wound is Cleaned:None Periwound Skin:intact Wound Size:1 (cm) Length, 3 (cm) Width and 5.2 (cm) Depth Wound Bed:Moist and Red Wound Exam:open and tender Wound Infection:yes PROBLEM LIST Principal Problem: Vulvar abscess Active Problems: Sepsis(995.91) DM2 (diabetes mellitus, type 2) Renal insufficiency COPD (chronic obstructive pulmonary disease) ASSESSMENT & PLAN Classification: Surgical Wound Patient premedicated with dilaudid as well as Lidocaine external topical medication (10 min heber dwell) All old foam removed (2 black, 1 white). Drain that was sutured to white foam came out eas desean as well. Wounds irrigated with wound cleanser set to stream setting and patted dry. Ph otos taken and wound measurements obtained. Periwound skin draped with vac drape after usin g skin prep barrier wipe. White foam filled gently into bath labia wound and inguinal wound with sufficient tail so it can be easily removed on next dressing change. Black foam to co augustine additional wound space. Black foam bridged over vac drape to left abdominal area where trac pad will not cause additional breakdown or discomfort. Seal set to 150 mmHg. Pannus f olds cleansed with warm water and cloth. Clean pillowcase placed to to wick moisture and ny statin powder ordered. Patient still has vazquez catheter in place. Because there is so jaja le labia to drape to obtain a seal it will be difficult to d/c the catheter and keep good santos ction as it will be as risk for moisture when patient urinates. A trial will be a good idea here in the hospital to see how the suction holds up before she goes home. Patient has additional surgical wound to left flank area that was irrigated and dried caref chris. Aquacel AG packed into wound, with 1" tail remaining and covered with bordered foam. Patient has Medicaid for primary insurance. Paperwork started, however from past experienc e Medicaid typically takes 2 weeks for approval. Negative Pressure Wound Therapy initiated/continued as follows: Newly initiated NPWT ?: no Number of foam pieces removed: 3 NPWT Cycle: Continuous NPWT Foam Type: black foam and white foam Number of Pieces : 2 white (1 in each inguinal an d labia wound). 2 black in labia wound and 1 black in inguinal wound NPWT Contact Layer: No NPWT Suction: Other: 150 NPWT Canister Changed: yes NPWT Frequency of Dressing Changes: Three times per week, Next dressing change due Tuesday Discharge plan: Patient lives in [place]. Possibly home with [facility] and [facility] following. Application started. Thank you for allowing me to participate in the care of this patient. I will continue to follow with you. Please call if there are any additional questions. Basilia Turner RN, ON 1:28 PM 03/06/2014 onver zafar Transaction, Provider Unknown - 03/06/2014 12:39 PM PST Therapy Progress Note by Ebonie Salazar PTA at 03/06/141238 Author: Ebonie Salazar PTA Service: (none) Author Type: Section Gang Worker Filed: 03/06/141238 Date of Service: 03/06/141238 Status: Signed Senior Consulting Manager: Ebonie Salazar PTA (Section Gang Worker) 03/06/148 PT Last Visit PT Received On 03/06/14 Reason for Treatment Other (comment) Requires PT Follow Up Unavailable Assistance Required 1 person Other Comments Comments Spoke to RN, Pt is getting wound vac changed and is waiting to hear back from MD luly angulo to Pt requesting to not have PT. onver zafar Transaction, Provider Unknown - 03/05/2014 8:54 PM PST Progress Notes by Elizabeth Enrique RPH at 03/05/142053 Author: Elizabeth Enrique RPH Service: (none) Author Type: Pharmacist Filed: 03/05/142053 Date of Service: 03/05/142053 Status: Signed Senior Consulting Manager: Elizabeth Enrique RPH (Pharmacist) Clinical Pharmacy Note: Pharmacy Dosing Vancomycin; Day 6 Ana Rosa Wright 58 y.o. female Ht Readings from Last 1 Encounters: 02/25/14 1.575 m (5' 2") Wt Readings from Last 1 Encounters: 03/03/14 113.8 kg (250 lb 14.1 oz) CREATININE: 0.82 (03/05/14 0319) Estimated creatinine clearance - 90.3 mL/min WBC Date Value Range Status 03/05/2014 11.3* 3.8 - 11.0 K/uL Final Testing performed at [facility], [address] [place] [address] Recent level drawn 03/05 at 2000: 24.4 mcg/ml; trough goal 15 to 20 mcg/ml. Will decrease to Vancomycin 1250 mg (11 mg/kg) IV Q12H with next dose tomorrow @ 0400. Next level due 03/06 at 1500. Pharmacy will continue to monitor for changes in renal function and adjust accordingly. Elizabeth Enrique [facility] 03/05/2014 8:52 PM Neo Connell MD - 03/05/2014 5:50 PM PSTFormatting of this note might be different from the janine mich. Progress Notes by Neo Loyola MD at 03/05/141749 Author: Neo Loyola MD Service: General Surgery Author Type: Physician Filed: 03/05/141752 Date of Service: 03/05/141749 Status: Signed Senior Consulting Manager: Neo Loyola MD (Physician) [facility] Service: General Surgery Progress Note Hospital Day: LOS:Hospital Day: 9 Post-Op Day: 1 Day Post-Op SUBJECTIVE More pain than I expected. Clinically better. OBJECTIVE Vital Signs: Filed Vitals: 03/05/14 1547 BP: 155/71 Pulse: 79 Temp: 98.4 F (36.9 C) Resp: 18 SpO2: 97% Filed Vitals: 03/05/14 0818 03/05/14 1107 03/05/14 1149 03/05/14 1547 BP: 132/63 146/68 155/71 Pulse: 78 76 79 Temp: 98.1 F (36.7 C) 98.3 F (36.8 C) 98.4 F (36.9 C) TempSrc: Oral Oral Oral Resp: 18 18 18 Height: Weight: SpO2: 99% 97% 96% 97% Intake/Output Summary (Last 24 hours) at 03/05/14 1750 Last data filed at 03/05/14 1709 Gross per 24 hour Intake 2885 ml Output 4075 ml Net -1190 ml DATA Lab Results Component Value Date/Time WBC 11.3* 03/05/2014 3:19 AM HGB 7.8* 03/05/2014 3:19 AM HCT 24.9* 03/05/2014 3:19 AM PLT 60* 03/05/2014 3:19 AM NA 139 03/05/2014 3:19 AM K 3.6 03/05/2014 3:19 AM CREATININE 0.82 03/05/2014 3:19 AM AST 17 03/05/2014 3:19 AM AST 15 03/04/2014 5:35 AM AST 19 03/03/2014 4:28 AM ALT 8* 03/05/2014 3:19 AM ALT 10 03/04/2014 5:35 AM ALT 10 03/03/2014 4:28 AM PHYSICAL afeb vss Still super sensitive on the left flank but softer and erythema resolved. May need US to r ule out unrecognized abscess but in OR tissues in the flank looked very good. Smaller drain placed ASSESSMENT Improving but pain management challenging and pt worried about "bedside" VAC change PLAN VAC lee at bedside tomorrow or Thurs. NEO LOYOLA MD 03/05/2014 5:50 PM Watson Trujillo MD - 03/05/2014 5:03 PM PST Progress Notes by Watson Negrete MD at 03/05/141702 Author: Watson Negrete MD Service: Infectious Disease Author Type: Physician Filed: 03/05/141712 Date of Service: 03/05/141702 Status: Signed Senior Consulting Manager: Watson Negrete MD (Physician) [facility] Service: Infectious Diseases Progress Note Hospital Day: LOS: 8 days Post-Op Day: 1 Day Post-Op CC: f/u necrotizing soft tissue infection SUBJECTIVE/OVERNIGHT EVENTS Still with pain left flank, appetite is ok. Denies diarrhea although she cannot see her sto ol. Had repear wound vac change with evacuation of pus pocket and some necrotic tissue. MEDICATIONS: aspirin 81 mg Oral Daily with breakfast calcium-vitamin D 2 tablet Oral BID cholecalciferol 1,000 Units Oral Daily clindamycin 900 mg Intravenous Q8H ferrous sulfate (65 FE) 65 mg of iron Oral Daily with breakfast insulin aspart 0-10 Units Subcutaneous TID AC insulin aspart 0-5 Units Subcutaneous Nightly insulin aspart 8 Units Subcutaneous TID AC insulin glargine 20 Units Subcutaneous BID lactobacillus 1 packet Oral 4x Daily Magnesium 500 mg Oral BID meropenem 1 g Intravenous Q8H omeprazole 20 mg Oral QAM AC PARoxetine 20 mg Oral QAM multivitamin & minerals w iron/FA 1 tablet Oral Daily with breakfast sodium chloride 0.9 % 10 mL Intravenous Q12H SULEMAN vancomycin 1,500 mg Intravenous Q12H dextrose PRN Medications acetaminophen, acetaminophen, dextrose, dextrose, dextrose, glucagon, glucagon, hydrALAZINE , HYDROmorphone, HYDROmorphone, lidocaine, magnesium sulfate, magnesium sulfate, magnesium s ulfate, ondansetron, ondansetron, oxyCODONE, phosphorus, polyethylene glycol, potassium chlo ride, potassium chloride, potassium chloride, sodium chloride 0.9 %, sodium chloride 0.9 %, sodium phosphate IVPB 20 mmol, sodium phosphate IVPB 45 mmol, zolpidem PHYSICAL EXAM Vital Signs: BP 155/71 | Pulse 79 | Temp(Src) 98.4 F (36.9 C) (Oral) | Resp 18 | Ht 1.575 m (5' 2") | Wt 113.8 kg (250 lb 14.1 oz) | BMI 45.88 kg/m2 | SpO2 97% | ? No Temp (24hrs), Av.2 F (36.8 C), Min:97.1 F (36.2 C), Max:98.6 F (37 C) General Appearance: Alert, cooperative, no distress Head: Normocephalic, without obvious abnormality, atraumatic Eyes: PERRL, conjunctiva/corneas clear, EOM's intact, fundi benign, both eyes Throat: Lips, mucosa, and tongue normal; teeth and gums normal Neck: Supple, symmetrical, trachea midline, no adenopathy; thyroid: no enlargement/tenderness/nodules; no carotid bruit or JVD Back: Symmetric, no curvature, ROM normal, no CVA tenderness Lungs: Clear to auscultation bilaterally, respirations unlabored Chest Wall: No tenderness or deformity Heart: Regular rate and rhythm, S1 and S2 normal, no murmur, rub or gallop Abdomen: Soft, left flank tender to palpation towards her back side, bowel sounds activ e all four quadrants, no masses, no organomegaly Extremities: Extremities normal, atraumatic, no cyanosis, 2+ edema Pulses: 2+ and symmetric all extremities Skin: Skin color, texture, turgor normal, no rashes or lesions Lymph nodes: Cervical, supraclavicular, and axillary nodes normal Neurologic: Alert and oriented to time, place and person. CNII-XII intact, normal strengt h, sensation and reflexes throughout. No focal neurological deficits Venous access: : L PICC No signs of infection. Wound vac in place. LABS: All labs reviewed. CBC: Lab Results Component Value Date WBC 11.3* 03/05/2014 RBC 2.95* 03/05/2014 HGB 7.8* 03/05/2014 HCT 24.9* 03/05/2014 MCV 84.3 03/05/2014 MCH 26.5* 03/05/2014 MCHC 31.5* 03/05/2014 RDW 47.3 03/05/2014 PLT 60* 03/05/2014 MPV 10.0 03/05/2014 DIFFTYPE AUTOMATED 03/05/2014 CMP: Lab Results Component Value Date NA 139 03/05/2014 K 3.6 03/05/2014 CL 109 03/05/2014 CO2 23 03/05/2014 ANIONGAP 11 03/05/2014 GLUF 101* 03/05/2014 BUN 5* 03/05/2014 CREATININE 0.82 03/05/2014 BCR 6 03/05/2014 CA 7.7* 03/05/2014 PROT 5.3* 03/05/2014 ALB 2.0* 03/05/2014 GLOB 3.3 03/05/2014 BILITOT 0.4 03/05/2014 ALP 113 03/05/2014 AST 17 03/05/2014 ALT 8* 03/05/2014 EGFR >60 03/05/2014 MICROBIOLOGY Results Procedure Component Value Units Date/Time Blood Culture Set 1 [[id number]] Collected: 02/25/141953 Specimen Information: Blood / Blood, peripheral draw Updated: 03/03/14545 Specimen Description BLOOD, PERIPHERAL DRAW SPECIAL REQUESTS L HAND SPECIAL REQUESTS Result: Testing performed at [facility];[address] [facility];[place] [address] CULTURE NO GROWTH CULTURE Result: Testing performed at [facility], [address] [place] [id number] Blood Culture Set 2 [[id number]] Collected: 02/25/141956 Specimen Information: Blood / Blood Updated: 03/03/14545 Specimen Description BLOOD, PERIPHERAL DRAW SPECIAL REQUESTS R HAND SPECIAL REQUESTS Result: Testing performed at [facility];[address] [facility];[place] [address] CULTURE NO GROWTH CULTURE Result: Testing performed at [facility], [address] [place] [id number] IMAGING Reviewed images of : no new images for review. PROBLEM LIST Principal Problem: Vulvar abscess Active Problems: Sepsis(995.91) DM2 (diabetes mellitus, type 2) Renal insufficiency COPD (chronic obstructive pulmonary disease) ASSESSMENT & PLAN 58-y-o diabetic female with the following problems: 1. 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 Visible fascial tissue appeared not to be involved per OR report and there was no m yonecrosis. Yesterday OR some pus pockets and minimal necrosis. 2. Severe sepsis with hypotension. Resolved with improvement in leukocytosis, bandemia and fever. 3. Polymicrobial infection, likely enterococcus, enterobacteriaceae and anaerobes. 4. Thrombocytopenia: Heparin on hold. Will monitor closely due to possible beta-lactam induced thrombocytopenia. Will re-assess in 24 h. Watson Negrete MD 03/05/2014 5:03 PM Sandy, Rupesh Anton MD - 03/05/2014 4:21 PM PSTFormatting of this note might be different from the or iginal. Progress Notes by Rupesh Camara MD at 03/05/14 6878 Author: Rupesh Camara MD Service: Hospitalist Author Type: Physician Filed: 03/05/141622 Date of Service: 03/05/141620 Status: Signed Senior Consulting Manager: Rupesh Camara MD (Physician) [facility] Service: Hospitalist Progress Note Hospital Day: LOS: 8 days SUBJECTIVE Patient Summary: Events Overnight: Patient tolerated I&D well No CP or SOA Had a BM No headache No ot her complaints Scheduled Medications aspirin 81 mg Oral Daily with breakfast calcium-vitamin D 2 tablet Oral BID cholecalciferol 1,000 Units Oral Daily clindamycin 900 mg Intravenous Q8H ferrous sulfate (65 FE) 65 mg of iron Oral Daily with breakfast insulin aspart 0-10 Units Subcutaneous TID AC insulin aspart 0-5 Units Subcutaneous Nightly insulin aspart 8 Units Subcutaneous TID AC insulin glargine 20 Units Subcutaneous BID lactobacillus 1 packet Oral 4x Daily Magnesium 500 mg Oral BID meropenem 1 g Intravenous Q8H omeprazole 20 mg Oral QAM AC PARoxetine 20 mg Oral QAM multivitamin & minerals w iron/FA 1 tablet Oral Daily with breakfast sodium chloride 0.9 % 10 mL Intravenous Q12H SULEMAN vancomycin 1,500 mg Intravenous Q12H Continuous Infusions dextrose PRN Medications acetaminophen, acetaminophen, dextrose, dextrose, dextrose, glucagon, glucagon, hydrALAZINE , HYDROmorphone, HYDROmorphone, lidocaine, magnesium sulfate, magnesium sulfate, magnesium s ulfate, ondansetron, ondansetron, oxyCODONE, phosphorus, polyethylene glycol, potassium chlo ride, potassium chloride, potassium chloride, sodium chloride 0.9 %, sodium chloride 0.9 %, sodium phosphate IVPB 20 mmol, sodium phosphate IVPB 45 mmol, zolpidem OBJECTIVE Vital Signs: BP 155/71 | Pulse 79 | Temp(Src) 98.4 F (36.9 C) (Oral) | Resp 18 | Ht 1.575 m (5' 2") | Wt 113.8 kg (250 lb 14.1 oz) | BMI 45.88 kg/m2 | SpO2 97% | ? No Physical Exam General Appearance: Alert, cooperative, no distress, appears stated age Lungs: Clear to auscultation bilaterally, respirations unlabored Heart: Regular rate and rhythm, S1 and S2 normal, no murmur, rub or gallop Abdomen: L groin tenderness With wound vac Extremities: Extremities normal, atraumatic, no cyanosis or edema Pulses: 2+ and symmetric all extremities Neurologic: CNII-XII intact, normal strength, sensation and reflexes throughout Groin exam deferred DATA Recent Labs Lab 03/05/1431803/04/14 0535 03/03/14 0428 WBC 11.3* 11.9* 13.8* HGB 7.8* 8.0* 7.9* HCT 24.9* 25.4* 25.1* PLT 60* 86* 181 NEUTOPHILPCT 79.1 -- -- MONOPCT 7.6 -- -- Recent Labs Lab 03/05/1431803/04/14 0535 03/03/14 0428 NA 139 138 139 K 3.6 3.8 3.8 CL 109 111* 112* CO2 23 24 21* BUN 5* 6* 6* CREATININE 0.82 0.83 0.61 PROT 5.3* 5.3* 5.2* BILITOT 0.4 0.3 0.4 ALT 8* 10 10 AST 17 15 19 Phosphorus: Lab Results Component Value Date PHOS 4.7 03/05/2014 No components found with this basename: LABALBU, Recent Labs Lab 03/05/1431803/04/14 0535 03/03/14 0428 MG 1.5* 1.5* 1.5* No results found for this basename: AMYLASE, in the last 168 hours No results found for this basename: PHART, PO2ART, HLG4QLZ, V3GQXSWW, BEART, in the last 1 68 hours No results found for this basename: APTT, INR, PTT, in the last 168 hours No results found for this basename: TSH, T3FREE, FREET4, in the last 168 hours Recent Labs Lab 03/02/14 0413 CKTOTAL 95 Radiology No results found. PROBLEM LIST Principal Problem: Vulvar abscess Active Problems: Sepsis(995.91) DM2 (diabetes mellitus, type 2) Renal insufficiency COPD (chronic obstructive pulmonary disease) Resolved Problems: * No resolved hospital problems. * ASSESSMENT & PLAN 1. Sepsis secondary to valvular abscess extending into groin, status post I andD Of the vu lva and L groin with wound vac in place Surgery consult appreciated The culture is polymicr obial Continue broad-spectrum antibiotics, .Appreciate ID consult 2. Diabetes. Blood sugar is actually very well controlled. Continue Lantus sliding scale. 3. Hypokalemia. Replace potassium. 4. DVT prophylaxis.Hold heparin in view of thrombocytopenia. 5. Acute kidney injury, Resolved. Hold olmesartan till clinical condition improves 6. Antibiotic-associated diarrhea. Clostridium difficile negative.Cont Lactinex.prn immodiu m 7. Depression. Continue Paxil. We will streamline the antibiotics once the culture results are back. 8 Anemia Iron def start replacement Code Status: Full Code Rupesh Camara MD 03/05/2014 4:21 PM ellGigi quick PT - 03/05/2014 3:50 PM PSTFormatting of this note might be different from the origi nal. Therapy Progress Note by Jessica Grayson PT at 03/05/14 1550 Author: Jessica Grayson PT Service: (none) Author Type: Physical Therapist Filed: 03/05/14 1624 Date of Service: 03/05/14 1550 Status: Signed Senior Consulting Manager: Jessica Grayson PT (Physical Therapist) 03/05/14 1550 PT Last Visit PT Received On 03/05/14 Reason for Treatment Other (comment) Requires PT Follow Up Refused Home Environment Additional Comments patient had just finished a walk- not sure she needs PT- speak with RN/ MD onversion Transa ction, Provider Unknown - 03/05/2014 5:09 AM PST Nurse Progress Note by Nirmala Quintana RN at 03/05/14 0509 Author: Nirmala Quintana RN Service: (none) Author Type: Registered Nurse Filed: 03/05/14 0510 Date of Service: 03/05/14 0509 Status: Signed Senior Consulting Manager: Nirmala Quintana RN (Registered Nurse) Magnesium low @ 1.5 this AM, replaced per protocol @ 0504 with 1 G of Mag Sulfate. Nirmala Quintana RN 03/05/14 @ 0510 onver zafar Transaction, Provider Unknown - 03/05/2014 1:25 AM PST Nurse Progress Note by Nirmala Quintana RN at 03/05/14 0125 Author: Nirmala Quintana RN Service: (none) Author Type: Registered Nurse Filed: 03/05/14 0226 Date of Service: 03/05/14124 Status: Signed Senior Consulting Manager: Nirmala Quintana RN (Registered Nurse) Resumed care of patient from Soraida Dubon RN @ 0100. Nirmala Quintana RN 03/05/14 @ 0100 onver zafar Transaction, Provider Unknown - 03/04/2014 1:20 PM PST Progress Notes by Segundo Hernandez RD at 03/04/14 1320 Author: Segundo Hernandez RD Service: (none) Author Type: Registered Dietitian Filed: 03/04/14 1330 Date of Service: 03/04/140 Status: Signed Senior Consulting Manager: Segundo Hernandez RD (Registered Dietitian) Nutrition Assessment and Recommendations Triggers for LOS. Assessment: Pt admitted with vulvar abscess is POD # 4 Left groin I & D, with wound vac placement, kirill g to OR today or Wound vac change per notes. BMI: 38.6 indicates grade 2 obesity. Wt history: According to wt's recorded, pt's wt is up 18.1 kg during admit, is + 15.4 L flu id. Nutritionally pertinent labs: BG elevated at 116, has lantus, novolog ordered, Phos elevate d 4.9, will continue to monitor. Mg low 1.5 recommend replacing. Nutrition-focused physical findings: Lying in bed, is very sleepy, just received medication for pain, per daughter. Current intake: NPO for procedure. Intake has been variable during admit secondary NPO stat us at times, decreased appetite. Pt reports yesterday eating 2 times, ate about 50% of her m eals, also says she was drinking Glucerna TID. Estimated needs: Kcal: 1532 - 1839 kcals (25 - 30 kcal/kg) adjusted wt. Protein: 61 - 80 gm pro (1.0 - 1.3 gm pro/kg) adjusted wt. Nutrition Diagnosis: Inability to consume sufficient energy/protein as evidence by NPO diet order, decreased hattie etite, variable po intake during admit. Goals: Pt will consume at least 50% of her meals/supplements. Recommendations: Advance diet as tolerated to diabetic maintenance when indicated. Resume Glucerna TID, encourage po intake. Monitoring: Will follow up in 5 days or as indicated. Segundo Hernandez RD 03/04/14. odesta stephen Transaction, Provider Unknown - 03/04/2014 11:28 AM PST Progress Notes by Elicia Sandoval RN at 03/04/141127 Author: Elicia Sandoval RN Service: (none) Author Type: Registered Nurse Filed: 03/04/141127 Date of Service: 03/04/141127 Status: Signed Senior Consulting Manager: Elicia Sandoval RN (Registered Nurse) Report given to [facility]. Family and pt aware of OR time. Rupesh Johnson i, MD - 03/04/2014 9:00 AM PSTFormatting of this note might be different fro m the original. Progress Notes by Rupesh Camara MD at 03/04/14 09 Author: Rupesh Camara MD Service: Hospitalist Author Type: Physician Filed: 03/04/14901 Date of Service: 03/04/14899 Status: Signed Senior Consulting Manager: Rupesh Camara MD (Physician) [facility] Service: Hospitalist Progress Note Hospital Day: LOS: 7 days SUBJECTIVE Patient Summary: Events Overnight: Patient is scheduled for OR today No CP or SOA Had a BM No headache No other complaints Scheduled Medications aspirin 81 mg Oral Daily with breakfast calcium-vitamin D 2 tablet Oral BID cholecalciferol 1,000 Units Oral Daily clindamycin 900 mg Intravenous Q8H ferrous sulfate (65 FE) 65 mg of iron Oral Daily with breakfast insulin aspart 0-10 Units Subcutaneous TID AC insulin aspart 0-5 Units Subcutaneous Nightly insulin aspart 8 Units Subcutaneous TID AC insulin glargine 20 Units Subcutaneous BID lactobacillus 1 packet Oral 4x Daily meropenem 1 g Intravenous Q8H omeprazole 20 mg Oral QAM AC PARoxetine 20 mg Oral QAM multivitamin & minerals w iron/FA 1 tablet Oral Daily with breakfast sodium chloride 0.9 % 10 mL Intravenous Q12H SULEMAN vancomycin 1,500 mg Intravenous Q12H Continuous Infusions dextrose PRN Medications acetaminophen, acetaminophen, dextrose, dextrose, dextrose, glucagon, glucagon, hydrALAZINE , HYDROmorphone, HYDROmorphone, lidocaine, magnesium sulfate, magnesium sulfate, magnesium s ulfate, ondansetron, ondansetron, oxyCODONE, phosphorus, polyethylene glycol, potassium chlo ride, potassium chloride, potassium chloride, sodium chloride 0.9 %, sodium chloride 0.9 %, sodium phosphate IVPB 20 mmol, sodium phosphate IVPB 45 mmol, zolpidem OBJECTIVE Vital Signs: BP 156/68 | Pulse 77 | Temp(Src) 98.2 F (36.8 C) (Oral) | Resp 18 | Ht 1.575 m (5' 2") | Wt 113.8 kg (250 lb 14.1 oz) | BMI 45.88 kg/m2 | SpO2 94% | ? No Physical Exam General Appearance: Alert, cooperative, no distress, appears stated age Lungs: Clear to auscultation bilaterally, respirations unlabored Heart: Regular rate and rhythm, S1 and S2 normal, no murmur, rub or gallop Abdomen: L groin tenderness With wound vac Extremities: Extremities normal, atraumatic, no cyanosis or edema Pulses: 2+ and symmetric all extremities Neurologic: CNII-XII intact, normal strength, sensation and reflexes throughout Groin exam deferred DATA Recent Labs Lab 03/04/14 0535 03/03/14 0428 03/02/14 0413 WBC 11.9* 13.8* 17.8* HGB 8.0* 7.9* 7.8* HCT 25.4* 25.1* 24.9* PLT 86* 181 286 Recent Labs Lab 03/04/14 0535 03/03/14 0428 03/02/14 1117 03/02/14 0413 NA 138 139 -- 137 K 3.8 3.8 3.6 3.4* CL 111* 112* -- 111* CO2 24 21* -- 21* BUN 6* 6* -- 7* CREATININE 0.83 0.61 -- 0.59 PROT 5.3* 5.2* -- 5.1* BILITOT 0.3 0.4 -- 0.4 ALT 10 10 -- 10 AST 15 19 -- 20 Phosphorus: Lab Results Component Value Date PHOS 4.9* 03/04/2014 No components found with this basename: LABALBU, Recent Labs Lab 03/04/14 0535 03/03/14 0428 03/02/14 1117 MG 1.5* 1.5* 1.5* No results found for this basename: AMYLASE, in the last 168 hours No results found for this basename: PHART, PO2ART, WHS9MOL, Q3TBSNKU, BEART, in the last 1 68 hours No results found for this basename: APTT, INR, PTT, in the last 168 hours No results found for this basename: TSH, T3FREE, FREET4, in the last 168 hours Recent Labs Lab 03/02/14 0413 CKTOTAL 95 Radiology No results found. PROBLEM LIST Principal Problem: Vulvar abscess Active Problems: Sepsis(995.91) DM2 (diabetes mellitus, type 2) Renal insufficiency COPD (chronic obstructive pulmonary disease) Resolved Problems: * No resolved hospital problems. * ASSESSMENT & PLAN 1. Sepsis secondary to valvular abscess extending into groin, status post I andD Of the vu lva and L groin with wound vac in place Surgery consult appreciated The culture is polymicr obial Continue broad-spectrum antibiotics, .Appreciate ID consult OR today 2. Diabetes. Blood sugar is actually very well controlled. Continue Lantus sliding scale. 3. Hypokalemia. Replace potassium. 4. DVT prophylaxis. Lovenox. 5. Acute kidney injury, Resolved. Hold olmesartan till clinical condition improves 6. Antibiotic-associated diarrhea. Clostridium difficile negative.Cont Lactinex.prn immodiu m 7. Depression. Continue Paxil. We will streamline the antibiotics once the culture results are back. 8 Anemia Iron detart replacement Code Status: Full Code Rupesh Camara MD 03/04/2014 9:00 AM onversion Ervin galvan, Provider Unknown - 03/04/2014 8:57 AM PSTFormatting of this note might be differ ent from the original. Therapy Progress Note by eJan Carlos Tabares PTA at 03/04/1457 Author: Jean Carlos Tabares PTA Service: (none) Author Type: Section Gang Worker Filed: 03/04/14900 Date of Service: 03/04/14856 Status: Signed Senior Consulting Manager: Jean Carlos Tabares PTA (Section Gang Worker) 03/04/14856 PT Last Visit PT Received On 03/04/14 Reason for Treatment Other (comment) (vulvar abscess) Requires PT Follow Up Yes Assistance Required 1 person Other Comments Comments pt sitting in chair willing to participate tentively scheduled for OR later toda y Cognition Overall Cognitive Status WFL Orientation Level Oriented Transfers Sit to/from Stand Standby assist Mobility Ambulation Assistance Standby assist Maximal Ambulation Distance (feet) 80 Total Ambulation Distance (feet) 80 Distance limited by? Patient's ability Pattern Alternating;Decreased rosalind Assistive Device Walker front wheeled Activity Tolerance Activity Tolerance Patient limited by fatigue Plan Treatment/Interventions Continue per Primary PT POC Progress Progressing toward goals Recommendation Recommendations Home with 24 hr supervision/assist onaugustine Lawrenceaction, Provider Unknown - 03/04/2014 8:53 AM PST Case Management by AMY Bryson at 03/04/1453 Author: AMY Bryson Service: (none) Author Type: Professor Of French Filed: 03/04/14854 Date of Service: 03/04/14852 Status: Signed Senior Consulting Manager: AMY Bryson (Professor Of French) CM arranged for [facility] to deliver a Front Wheel Walker to pt's room per physical t herapy's recommendation. CM arranged for [facility] to provide wound-vac dressi ng changes 3x a week per [facility] RN's recommendations. CM will continue to follo w for possible home IV antibiotic therapy. Pt had no other resource concerns at this time. Dell CORDERO aron Cha DO - 03/04/2014 7:11 AM PSTFormatting of this note might be different from th e original. Progress Notes by Yaron Sims DO at 03/04/14710 Author: Yaron Sims DO Service: General Surgery Author Type: Physician Filed: 03/04/14711 Date of Service: 03/04/14710 Status: Signed Senior Consulting Manager: Yaron Sims DO (Physician) Will defer surgical care to MD YARON Cruz onversion Transa ction, Provider Unknown - 03/04/2014 1:30 AM PST Progress Notes by Soraida Ashford RN at 03/04/14129 Author: Soraida Ashford RN Service: (none) Author Type: Registered Nurse Filed: 03/04/14 0146 Date of Service: 03/04/14129 Status: Signed Senior Consulting Manager: Soraida Ashford RN (Registered Nurse) Mini Gamboa assuming care at this time. onver zafar Transaction, Provider Unknown - 03/03/2014 10:47 PM PST Progress Notes by John Osborne at 03/03/142246 Author: John Osborne Service: (none) Author Type: Pharmacy Services Representative Filed: 03/03/14 0935 Date of Service: 03/03/142246 Status: Signed Senior Consulting Manager: John Osborne (Pharmacy Services Representative) Responded to a call from [facility]. Pt was wanting a gold layer. Pt 58 y/o woman from [place] and is Denominational. She mentioned Father Elier from [facility]. Pt was lonely and wanted kendra eone to talk to. Pt going in for for her third surgery tomorrow. She is feeling some anxiet y. Pt would like a visit from a plant maintenance engineer tomorrow before surgery. Talked with pt and she expr essed that she was not sure if she should live or . After talking pt she decided it was better to live. Pt talked about her family, her children and grandchildren and about a spec ial needs daughter that several years ago. Prayed with pt and chaplains will co ntinue to provide care as needed/requested. Vinicius Osborne Neo Connell MD - 03/03/2014 7:16 PM PSTFormatting of this note might be different from the janine mich. Progress Notes by Neo Loyola MD at 03/03/141915 Author: Neo Loyola MD Service: General Surgery Author Type: Physician Filed: 03/03/141917 Date of Service: 03/03/141915 Status: Signed Senior Consulting Manager: Neo Loyola MD (Physician) [facility] Service: General Surgery Progress Note Hospital Day: LOS:Hospital Day: 7 Post-Op Day: 3 Days Post-Op SUBJECTIVE Less pain but patient still complains of soreness. OBJECTIVE Vital Signs: Filed Vitals: 03/03/14 1604 BP: 135/63 Pulse: 76 Temp: 97.8 F (36.6 C) Resp: 18 SpO2: 96% Filed Vitals: 03/03/14 0559 03/03/14 0703 03/03/14 1105 03/03/14 1604 BP: 129/60 142/68 135/63 Pulse: 85 74 76 Temp: 98.5 F (36.9 C) 98 F (36.7 C) 97.8 F (36.6 C) TempSrc: Resp: 17 17 18 Height: Weight: 113.8 kg (250 lb 14.1 oz) SpO2: 94% 94% 96% Intake/Output Summary (Last 24 hours) at 03/03/141915 Last data filed at 03/03/14 1759 Gross per 24 hour Intake 1382 ml Output 1550 ml Net -168 ml DATA Lab Results Component Value Date/Time WBC 13.8* 03/03/2014 4:28 AM HGB 7.9* 03/03/2014 4:28 AM HCT 25.1* 03/03/2014 4:28 AM PLT 181 03/03/2014 4:28 AM NA 139 03/03/2014 4:28 AM K 3.8 03/03/2014 4:28 AM CREATININE 0.61 03/03/2014 4:28 AM AST 19 03/03/2014 4:28 AM AST 20 03/02/2014 4:13 AM AST 15 03/01/2014 6:11 AM ALT 10 03/03/2014 4:28 AM ALT 10 03/02/2014 4:13 AM ALT 12 03/01/2014 6:11 AM PHYSICAL vss Good uop Less induration in the left flank Less drainage ASSESSMENT improving PLAN VAC change tomorrow NEO LOYOLA MD 03/03/2014 7:16 PM onversion Transaction , Provider Unknown - 03/03/2014 5:11 PM PST Progress Notes by Lorena Peralta RPH at 03/03/14 171 Author: Lorena Peralta RPH Service: (none) Author Type: Pharmacist Filed: 03/03/141710 Date of Service: 03/03/141710 Status: Signed Senior Consulting Manager: Lorena Peralta RPH (Pharmacist) Vancomycin day 4: Trough before 5th dose = 22.1 Will decrease dose to 1500 mg q12h (from 1750 mg q12h). SCr = 0.61, WBC = 13.8. We will check a level before the 5th dose of new regimen. Lorena Peralta onver zafar Transaction, Provider Unknown - 03/03/2014 1:48 PM PST Therapy Progress Note by Jean Carlos Tabares PTA at 03/03/14 1348 Author: Jean Carlos Tabares PTA Service: (none) Author Type: Section Gang Worker Filed: 03/03/14 1343 Date of Service: 03/03/141347 Status: Signed Senior Consulting Manager: Jean Carlos Tabares PTA (Section Gang Worker) 03/03/14 1348 PT Last Visit PT Received On 03/03/14 Reason for Treatment Other (comment) (vulvar abscess) Requires PT Follow Up Other (comment) Other Comments Comments pt sleeping very soundly family reporting pt has been getting up frequently and a mbulating to and from BR Rupesh Johnson i, MD - 03/03/2014 10:15 AM PSTFormatting of this note might be different fro m the original. Progress Notes by Rupesh Camara MD at 03/03/14 1015 Author: Rupesh Camara MD Service: Hospitalist Author Type: Physician Filed: 03/04/14 0903 Date of Service: 03/03/14 1015 Status: Addendum Senior Consulting Manager: Rupesh Camara MD (Physician) Related Notes: Original Note by Rupesh Camara MD (Physician) filed at 03/03/14 1020 [facility] Service: Hospitalist Progress Note Hospital Day: LOS: 6 days SUBJECTIVE Patient Summary: Events Overnight: Patient had a fall becos she tried to walk despite repeated instruct ion to call for help before walking. No more headacheL groin and flank pain much better with I&D Patient underwent I&D of L groin area and has wound vac Patient is alert Ox3 No CP or SOA No nausea or vomiting Scheduled Medications aspirin 81 mg Oral Daily with breakfast calcium-vitamin D 2 tablet Oral BID clindamycin 900 mg Intravenous Q8H enoxaparin 40 mg Subcutaneous Q24H ferrous sulfate (65 FE) 65 mg of iron Oral Daily with breakfast insulin aspart 0-10 Units Subcutaneous TID AC insulin aspart 0-5 Units Subcutaneous Nightly insulin aspart 8 Units Subcutaneous TID AC insulin glargine 30 Units Subcutaneous BID lactobacillus 1 packet Oral 4x Daily meropenem 1 g Intravenous Q8H omeprazole 20 mg Oral QAM AC PARoxetine 20 mg Oral QAM multivitamin & minerals w iron/FA 1 tablet Oral Daily with breakfast sodium chloride 0.9 % 10 mL Intravenous Q12H SULEMAN vancomycin 17 mg/kg Intravenous Q12H Continuous Infusions dextrose PRN Medications acetaminophen, acetaminophen, dextrose, dextrose, dextrose, glucagon, glucagon, hydrALAZINE , HYDROmorphone, HYDROmorphone, lidocaine, magnesium sulfate, magnesium sulfate, magnesium s ulfate, ondansetron, ondansetron, oxyCODONE, phosphorus, polyethylene glycol, potassium chlo ride, potassium chloride, potassium chloride, sodium chloride 0.9 %, sodium chloride 0.9 %, sodium phosphate IVPB 20 mmol, sodium phosphate IVPB 45 mmol, zolpidem OBJECTIVE Vital Signs: BP 129/60 | Pulse 85 | Temp(Src) 98.5 F (36.9 C) (Oral) | Resp 17 | Ht 1.575 m (5' 2") | Wt 113.8 kg (250 lb 14.1 oz) | BMI 45.88 kg/m2 | SpO2 94% | ? No Physical Exam General Appearance: Alert, cooperative, no distress, appears stated age Lungs: Clear to auscultation bilaterally, respirations unlabored Heart: Regular rate and rhythm, S1 and S2 normal, no murmur, rub or gallop Abdomen: L groin tenderness With wound vac Extremities: Extremities normal, atraumatic, no cyanosis or edema Pulses: 2+ and symmetric all extremities Neurologic: CNII-XII intact, normal strength, sensation and reflexes throughout Groin exam deferred DATA Recent Labs Lab 03/03/1442703/02/1441203/01/14 0611 WBC 13.8* 17.8* 20.4* HGB 7.9* 7.8* 7.6* HCT 25.1* 24.9* 23.7* PLT 181 286 291 Recent Labs Lab 03/03/1442703/02/14111603/02/14 0413 03/01/14 0611 NA 139 -- 137 -- 144* K 3.8 3.6 3.4* < > 3.6 CL 112* -- 111* -- 115* CO2 21* -- 21* -- 21* BUN 6* -- 7* -- 11 CREATININE 0.61 -- 0.59 -- 0.86 PROT 5.2* -- 5.1* -- 4.9* BILITOT 0.4 -- 0.4 -- 0.5 ALT 10 -- 10 -- 12 AST 19 -- 20 -- 15 < > = values in this interval not displayed. Phosphorus: Lab Results Component Value Date PHOS 4.1 03/03/2014 No components found with this basename: LABALBU, Recent Labs Lab 03/03/1442703/02/14111603/02/14 0413 MG 1.5* 1.5* 1.3* No results found for this basename: AMYLASE, in the last 168 hours No results found for this basename: PHART, PO2ART, URF9OZJ, P2PLRTGA, BEART, in the last 1 68 hours No results found for this basename: APTT, INR, PTT, in the last 168 hours No results found for this basename: TSH, T3FREE, FREET4, in the last 168 hours Recent Labs Lab 03/02/14 0413 CKTOTAL 95 Radiology No results found. PROBLEM LIST Principal Problem: Vulvar abscess Active Problems: Sepsis(995.91) DM2 (diabetes mellitus, type 2) Renal insufficiency COPD (chronic obstructive pulmonary disease) Resolved Problems: * No resolved hospital problems. * ASSESSMENT & PLAN 1. Sepsis secondary to valvular abscess extending into groin, status post I and Of the vul va and L groin with wound vac in place Surgery consult appreciatedThe culture is polymicrob ial Continue broad-spectrum antibiotics, .Appreciate ID consult Back to OR ollie 2. Diabetes. Blood sugar is actually very well controlled. Continue Lantus sliding scale. 3. Hypokalemia. Replace potassium. 4. DVT prophylaxis. Lovenox. 5. Acute kidney injury, Resolved. Hold olmesartan till clinical condition improves 6. Antibiotic-associated diarrhea. Clostridium difficile negative.Cont Lactinex.prn immodiu m 7. Depression. Continue Paxil. We will streamline the antibiotics once the culture results are back. 8 Anemia Iron def Start replacement Code Status: Full Code Rupesh Camara MD 03/03/2014 10:15 AM Janina Moore MD - 03/03/2014 8:00 AM PST Progress Notes by Janina Zhou MD at 03/03/14 08 Author: Janina Zhou MD Service: Infectious Disease Author Type: Physician Filed: 03/03/14845 Date of Service: 03/03/14799 Status: Signed Senior Consulting Manager: Janina Zhou MD (Physician) CONSULT NOTE 03/03/2014 8:43 AM PRIMARY PHYSICIAN Jean Carlos Crowell CONSULT REQUEST FROM Neo Loyola MD HISTORY OF PRESENT ILLNESS The patient is a 58 y.o.-year-old female with significant problems PMH of diabetes presented to [facility] with high fever, chills, vulvar pain that started 1 04/26/13 S/p I and D on 02/25/14 Incision and drainage of left vulvar abscess, breaking up of loculations, packing and Penro se drain placement Culture show mix odette on 02/25/14 Day 7 of clindamycin Day 4 of meropenem Day 7 of vancomycin. Culture show mix anaerobe infection Due to the left groin infection, thus an infectious disease (ID) consult done for further e valuation and management. Leucocytosis ,hypotension and fever all better Pain is better. Past Medical History Diagnosis Date Diabetes mellitus, type 2 Hypertension COPD (chronic obstructive pulmonary disease) Past Surgical History Procedure Laterality Date Incision and drainage of wound Left 02/25/2014 Procedure: INCISION & DRAINAGE; Surgeon: Presley Kat MD; Location: [facility] MAIN OR; Service: BLISTER RUST ERADICATOR; Laterality: Left; LEFT VULVAR ABSCESS Irrigation & debridement Left 02/28/2014 Procedure: IRRIGATION & DEBRIDEMENT; Surgeon: Neo Loyola MD; Location: [facility] MAIN OR; Service: General; Laterality: Left; Current Facility-Administered Medications Medication Dose Route Frequency Provider Last Rate Last Dose acetaminophen (TYLENOL) tablet 650 mg 650 mg Oral Q6H PRN Presley Kat MD 650 mg at 02/28/14 0032 Or acetaminophen (TYLENOL) suppository 650 mg 650 mg Rectal Q6H PRN Presley Kat MD 650 mg at 02/25/14 1915 aspirin chewable tablet 81 mg 81 mg Oral Daily with breakfast Max Peralta, DO 81 mg at 03/03/14 0735 calcium-vitamin D (OSCAL) 250-125 MG-UNIT per tablet 2 tablet 2 tablet Oral BID Max Peralta, DO 2 tablet at 03/03/14 0735 clindamycin (CLEOCIN) IVPB 900 mg 900 mg Intravenous Q8H Presley Kat MD 900 mg at 03/03/14 0835 dextrose 10 % infusion Intravenous Continuous PRN Max Peralta, DO dextrose 50 % solution 12 mL 12 mL Intravenous PRN Max Peralta, DO dextrose 50 % solution 25 mL 25 mL Intravenous PRN Max Peralta, DO enoxaparin (LOVENOX) injection 40 mg 40 mg Subcutaneous Q24H Rupesh Camara MD ferrous sulfate (65 FE) EC tablet 324 mg 65 mg of iron Oral Daily with breakfast Rupesh Camara MD 65 mg of iron at 03/03/14 0738 glucagon (GLUCAGEN) injection 0.5 mg 0.5 mg Intramuscular PRN Max Peralta, DO glucagon (GLUCAGEN) injection 1 mg 1 mg Intramuscular PRN Max Peralta, DO hydrALAZINE (APRESOLINE) injection 10 mg 10 mg Intravenous Q6H PRN Max Peralta, DO HYDROmorphone (DILAUDID) injection 0.5 mg 0.5 mg Intravenous Q3H PRN Presley Kat MD 0.5 mg at 03/01/14 0928 Or HYDROmorphone (DILAUDID) injection 1 mg 1 mg Intravenous Q3H PRN Presley Kat MD 1 mg at 03/03/14 0051 insulin aspart (NOVOLOG) injection 0-10 Units 0-10 Units Subcutaneous TID AC Max retana, DO 2 Units at 03/02/14 1730 insulin aspart (NOVOLOG) injection 0-5 Units 0-5 Units Subcutaneous Nightly Max menchaca, DO 0 Units at 03/01/14 2258 insulin aspart (NOVOLOG) injection 8 Units 8 Units Subcutaneous TID AC Rupesh Camara MD insulin glargine (LANTUS) injection 30 Units 30 Units Subcutaneous BID Max Peralta, Luly O 30 Units at 03/03/14 0835 lactobacillus (FLORANEX) granules 1 packet 1 packet Oral 4x Daily Rupesh Camara MD 1 packet at 03/03/14 0734 lidocaine (XYLOCAINE) 4 % external solution Topical PRN Neo Loyola MD magnesium sulfate 1 g/50 mL IVPB 1 g Intravenous PRN Rupesh Camara MD 1 g at 0750 Or magnesium sulfate 2 g/50 mL IVPB 2 g Intravenous PRN Rupesh Camara MD Or magnesium sulfate 3 g/50 mL IVPB 3 g Intravenous PRN Rupesh Camara MD meropenem (MERREM) 1 g in sodium chloride (IV) 0.9 % 50 mL IVPB 1 g Intravenous Q8H Idania Negrete MD 1 g at 03/03/14 0735 omeprazole (PRILOSEC) capsule 20 mg 20 mg Oral QAM AC Max Peralta, DO 20 mg at 1210/08 0653 ondansetron (ZOFRAN) tablet 4 mg 4 mg Oral Q6H PRN rPesley Kat MD Or ondansetron (ZOFRAN) injection 4 mg 4 mg Intravenous Q6H PRN Presley Kat MD oxyCODONE (ROXICODONE) immediate release tablet 10 mg 10 mg Oral Q4H PRN Rupesh Camara MD 10 mg at 03/03/14 0735 PARoxetine (PAXIL) tablet 20 mg 20 mg Oral BRUCE Peralta DO 20 mg at 03/03/14 07 38 phosphorus (K PHOS NEUTRAL) tablet 2 tablet 500 mg Oral PRN Rupesh Camara MD Or sodium phosphate 20 mmol in sodium chloride (IV) 0.9 % 100 mL IVPB 20 mmol Intravenous PRN Rupesh Camara MD Or sodium phosphate 45 mmol in sodium chloride (IV) 0.9 % 100 mL IVPB 45 mmol Intravenous PRN Rupesh Camara MD 45 mmol at 02/27/14 1327 polyethylene glycol (GLYCOLAX) packet 17 g 17 g Oral Daily PRN Presley Kat MD potassium chloride 20 mEq in 260 mL IVPB 20 mEq Intravenous PRN Rupesh Camara MD 20 mEq at 03/02/14 1453 Or potassium chloride 40 mEq in 520 mL IVPB 40 mEq Intravenous PRN Rupesh Camara MD 40 mEq at 03/02/14 0633 Or potassium chloride 60 mEq in 530 mL IVPB 60 mEq Intravenous PRN Rupesh Camara MD multivitamin & minerals w iron/FA 27-0.8 MG tablet TABS 1 tablet 1 tablet Ora l Daily with breakfast Rupesh Camara MD 1 tablet at 03/03/14 0735 sodium chloride 0.9 % flush 10 mL 10 mL Intravenous Q12H SULEMAN Rupesh Camara MD 10 mL at 03/03/14 0837 sodium chloride 0.9 % flush 20 mL 20 mL Intravenous PRN Rupesh Camara MD sodium chloride 0.9 % flush 20 mL 20 mL Intravenous PRN Rupesh Camara MD vancomycin (VANCOCIN) 1750 mg/285 mL IVPB 17 mg/kg Intravenous Q12H Watson Negrete MD 1,750 mg at 03/03/14 0431 zolpidem (AMBIEN) tablet 5 mg 5 mg Oral Nightly PRN Presley Kat MD Allergies Allergen Reactions Levaquin [Levofloxacin] Other (See Comments) Muscle tension Fosamax [Alendronate] Nausea Only and GI Distress Ibuprofen GI Distress History Social History Marital Status: Spouse Name: N/A Number of Children: N/A Years of Education: N/A Occupational History Not on file. Social History Main Topics Smoking status: Current Every Day Smoker -- 0.50 packs/day for 30 years Smokeless tobacco: Not on file Alcohol Use: No Drug Use: Not on file Sexual Activity: Not on file Other Topics Concern Not on file Social History Narrative With smoking for 50 years . No alcohol intake. Recreational Drug Use No Travel No Pets Immunization History Administered Date(s) Administered Tdap 03/01/2014 The patient had both the vaccines for Pneumococcal Influenza History reviewed. No pertinent family history. REVIEW OF SYSTEMS General: The patient noted to have no problem of fever,no weight loss and with no chills. Neurologic: Denies any headache, any lightheadedness. No loss of consciousness or seizure. Cardiac: Denies Chest Pain, Palpitation, Dyspnea on Exertion Pulmonary: Denies cough, wheezing and hemoptysis GASTROINTESTINAL: Denies nausea vomiting, and diarrhea. GENITOURINARY: Noted no dysuria, urgency, or frequency. Hematological : Denies any ecchymosis, bleeding or hematuria Endocrine: Denies any polyphagia, polyuria or hot and cold intolerance Musculoskeletal: no new joint pain and swelling. Skin : Denies any new rashes or cutaneous changes. Rest of the review of systems is unremarkable. PHYSICAL EXAMINATION VITAL SIGNS Wt Readings from Last 3 Encounters: 03/03/14 113.8 kg (250 lb 14.1 oz) 03/03/14 113.8 kg (250 lb 14.1 oz) 03/03/14 113.8 kg (250 lb 14.1 oz) Temp Readings from Last 3 Encounters: 03/03/14 98.5 F (36.9 C) 03/03/14 98.5 F (36.9 C) 03/03/14 98.5 F (36.9 C) BP Readings from Last 3 Encounters: 03/03/14 129/60 03/03/14 129/60 03/03/14 129/60 Pulse Readings from Last 3 Encounters: 03/03/14 85 03/03/14 85 03/03/14 85 Head: Normocephalic atraumatic HEENT: [place] palpebral conjunctivae. Anicteric sclerae. No tonsillopharyngeal congestion. Neck : Noted no Cervical Lymphadenopathy CHEST:Clear Breath Sounds Bilateral . HEART: Regular rate and rhythm. No murmurs thrills or rubs ABDOMEN: Soft, flat. No tenderness. No hepatosplenomegaly. GROIN AREA: loeft groin with woudn vacc. EXTREMITIES: Lower extremities no edema. Both Feet noted to have no edema. Left arm with picc line. NEUROLOGIC: No localizing signs. Skin : with No rash ecchymosis. LABORATORY DATA Lab Results Component Value Date WBC 13.8* 03/03/2014 HGB 7.9* 03/03/2014 HCT 25.1* 03/03/2014 PLT 181 03/03/2014 ALT 10 03/03/2014 AST 19 03/03/2014 NA 139 03/03/2014 K 3.8 03/03/2014 CL 112* 03/03/2014 CREATININE 0.61 03/03/2014 BUN 6* 03/03/2014 CO2 21* 03/03/2014 GLUF 72 03/03/2014 HGBA1C 7.8* 02/27/2014 Hepatic Function Panel: Lab Results Component Value Date PROT 5.2* 03/03/2014 ALB 2.1* 03/03/2014 BILITOT 0.4 03/03/2014 ALP 131* 03/03/2014 AST 19 03/03/2014 ALT 10 03/03/2014 Lipase: No results found for this basename: LIPASE U/A: No results found for this basename: COLORU, CLARITYU, MEROPENEM, LEUKOCYTESUR, NITRITE, UROBILINOGEN, PROTEINUA, PHUR, BLOODU, KETONES, BILIRUBINUR, GLUCOSEU DIAGNOSTIC IMAGING Order Status: Completed Updated: 02/27/14 1825 Narrative: ANA ROSA WRIGHT CT ABDOMEN PELVIS W CONTRAST 02/27/2014 4:47 PM HISTORY: 58 years. Female. Vulvar abscess and pain TECHNIQUE: 5-mm axial images were acquired through the abdomen and pelvis. Oral Contrast: Readi-Cat IV contrast: 100 mL IsoVue 300 COMPARISON: None. FINDINGS: Bilateral atelectasis and symmetric pleural effusions present. No cardiac enlargement The distal esophagus is normal. The liver is normal in size, position, contour and attenuation. No solid or cystic masses a re noted. No intrahepatic biliary ductal enlargement is seen. The portal vein and hepatic ve ins are normal. The spleen is normal in size and attenuation. No solid or cystic masses are noted. The pancreas is normal in size and attenuation. No solid or cystic masses are noted. The gallbladder is not visualized The adrenal glands are normal in size bilaterally. There is no evidence of an adrenal adeno ma or hyperplasia. The kidneys are symmetric in size bilaterally and show no evidence of a solid or cystic mas s. No hydronephrosis is noted. No stones are seen in the collecting systems. The aorta and vena cava are normal in caliber throughout their visualized course including the iliac and femoral vessels. No free fluid or free air is present. No adenopathy is seen in the abdomen or pelvis. The stomach, duodenum, jejunum, ileum, ileocecal valve are normal. No air-fluid levels are seen to suggest obstruction. The appendix is identified and is normal. The ascending colon, transverse colon, descending colon, sigmoid colon and rectum demonstrate normal wall thickne ss. No diverticulosis is noted. In the pelvis the bladder is fluid filled and has a normal contour and wall thickness. No i ntraluminal filling defects are seen. No diverticulum is noted. The muscles are symmetric. No focal atrophy or soft tissue mass is seen. No hernias are tiffany ntified. In the left side of the pelvis, there is extensive air dissection from the left perineum, c ommencing on the lowest image obtained. The wall the are not detected on this examination. T here is air dissecting into the left flank, extending superiorly up to image 251/5. There is no abscess formation along the course of this air. Is possible that this air is dissected a ssociated with a surgical intervention. There is broad protrusion of bowel contents into the pannus centrally. This extends down to a point at the pubic symphysis. Vazquez catheter lies in the small bladder. The patient has had a prior hysterectomy. The osseous structures do not demonstrate lytic or blastic lesions. The SI joints and hip j oints are normal. Impression: 1. Air tracking from the left. Medium superiorly in the extraperitoneal spaces along the l eft flank. Rule out cells associated with this dissecting air. A bulla are not depicted on t his examination. 2. Bilateral symmetric pleural effusions with bibasilar atelectasis 3. Protrusion of bowel loops into the pannus just above the pubic symphysis. This is broad- based and does not represent a focal herniation. 4. The gallbladder is not visualized. No surgical clips are seen. Ana Rosa Wright is a 58 y.o. female with the following Problems Patient Active Problem List Diagnosis Vulvar abscess Sepsis(995.91) DM2 (diabetes mellitus, type 2) Renal insufficiency COPD (chronic obstructive pulmonary disease) Plan: CBC CMP ESR CRP in am. ' Follow up Blood culture 2x on different site. Continue with iv meropenem, clindamycin and vancomycin Discussed with Dr. Loyola who agreed and will proceed As plan. Thank you very much for the consult. JANINA ZHOU MD onversion Transaction , Provider Unknown - 03/02/2014 5:55 PM PST Progress Notes by Lorena Peralta RPH at 03/02/141754 Author: Lorena Peralta RPH Service: (none) Author Type: Pharmacist Filed: 03/02/141755 Date of Service: 03/02/141754 Status: Signed Senior Consulting Manager: Lorena Peralta RPH (Pharmacist) Vancomycin day 3: Level incorrectly drawn this am after dose given = 373. Level drawn before 3rd dose = 14.1. Do not expect this to be at steady state, therefore redd l not adjust dose and will check a level before the 5th dose, tomorrow at 1600. Pharmacy will continue to follow, and will increase dose if level not >15. Lorena Peralta Rupesh Johnson i, MD - 03/02/2014 3:50 PM PSTFormatting of this note might be different fro m the original. Progress Notes by Rupesh Camara MD at 03/02/14 1550 Author: Rupesh Camara MD Service: Hospitalist Author Type: Physician Filed: 03/02/141549 Date of Service: 03/02/141549 Status: Signed Senior Consulting Manager: Rupesh Camara MD (Physician) Patient reports occipital headache I wanted to order CT head and neck She refused Will brittnee tor onversion Tr ansaction, Provider Unknown - 03/02/2014 3:41 PM PSTFormatting of this note might be differ ent from the original. Progress Notes by Ruth Ann Levin RN at 03/02/14 154 Author: Ruth Ann Levin RN Service: (none) Author Type: Registered Nurse Filed: 03/02/14 1547 Date of Service: 03/02/141540 Status: Signed Senior Consulting Manager: Ruth Ann Levin RN (Registered Nurse) Patient attempted to stand up without calling for assistance, and fell back and hit her hea d on the side rail. Patient placed back into bed. VS signs stable. Dr. Camara notified. Redd l continue to reassess and reinforce patient asking for assistance with getting out of bed. RUTH ANN LEVIN RN 03/02/2014 3:47 PM Rupesh Johnson i, MD - 03/02/2014 2:40 PM PSTFormatting of this note might be different fro m the original. Progress Notes by Rupesh Camara MD at 03/02/14 1440 Author: Rupesh Camara MD Service: Hospitalist Author Type: Physician Filed: 03/02/14 1442 Date of Service: 03/02/141439 Status: Signed Senior Consulting Manager: Rupesh Camara MD (Physician) [facility] Service: Hospitalist Progress Note Hospital Day: LOS: 5 days SUBJECTIVE Patient Summary: Events Overnight: Patient was eating a snickers bar I told her to avoid itL groin and flank pain much better with I&D Patient underwent I&D of L groin area and has wound vac Shantelle ent is alert Ox3 No CP or SOA No nausea or vomiting Scheduled Medications aspirin 81 mg Oral Daily with breakfast calcium-vitamin D 2 tablet Oral BID clindamycin 900 mg Intravenous Q8H ferrous sulfate (65 FE) 65 mg of iron Oral Daily with breakfast insulin aspart 0-10 Units Subcutaneous TID AC insulin aspart 0-5 Units Subcutaneous Nightly insulin aspart 10 Units Subcutaneous TID AC insulin glargine 30 Units Subcutaneous BID lactobacillus 1 packet Oral 4x Daily lidocaine buffered 1% 0.5 mL Intradermal Once meropenem 1 g Intravenous Q8H omeprazole 20 mg Oral QAM AC PARoxetine 20 mg Oral QAM multivitamin & minerals w iron/FA 1 tablet Oral Daily with breakfast sodium chloride 0.9 % 10 mL Intravenous Q12H SULEMAN vancomycin 17 mg/kg Intravenous Q12H Continuous Infusions dextrose PRN Medications acetaminophen, acetaminophen, dextrose, dextrose, dextrose, glucagon, glucagon, hydrALAZINE , HYDROmorphone, HYDROmorphone, lidocaine, magnesium sulfate, magnesium sulfate, magnesium s ulfate, ondansetron, ondansetron, oxyCODONE, phosphorus, polyethylene glycol, potassium chlo ride, potassium chloride, potassium chloride, sodium chloride 0.9 %, sodium chloride 0.9 %, sodium phosphate IVPB 20 mmol, sodium phosphate IVPB 45 mmol, zolpidem OBJECTIVE Vital Signs: BP 139/65 | Pulse 88 | Temp(Src) 98.3 F (36.8 C) (Axillary) | Resp 18 | Ht 1.575 m (5' 2") | Wt 110.179 kg (242 lb 14.4 oz) | BMI 44.42 kg/m2 | SpO2 93% | ? No Physical Exam General Appearance: Alert, cooperative, no distress, appears stated age Lungs: Clear to auscultation bilaterally, respirations unlabored Heart: Regular rate and rhythm, S1 and S2 normal, no murmur, rub or gallop Abdomen: L groin tenderness With wound vac Extremities: Extremities normal, atraumatic, no cyanosis or edema Pulses: 2+ and symmetric all extremities Neurologic: CNII-XII intact, normal strength, sensation and reflexes throughout Groin exam deferred DATA Recent Labs Lab 03/02/14 0413 03/01/14 0611 02/28/14 0532 WBC 17.8* 20.4* 17.9* HGB 7.8* 7.6* 9.0* HCT 24.9* 23.7* 28.4* PLT 286 291 323 Recent Labs Lab 03/02/14 1117 03/02/14 0413 03/01/14 1656 03/01/14 0611 02/28/14 0532 NA -- 137 -- 144* 137 K 3.6 3.4* 3.9 3.6 3.4* CL -- 111* -- 115* 110* CO2 -- 21* -- 21* 22* BUN -- 7* -- 11 11 CREATININE -- 0.59 -- 0.86 0.67 PROT -- 5.1* -- 4.9* 5.3* BILITOT -- 0.4 -- 0.5 0.5 ALT -- 10 -- 12 12 AST -- 20 -- 15 18 Phosphorus: Lab Results Component Value Date PHOS 3.5 03/02/2014 No components found with this basename: LABALBU, Recent Labs Lab 03/02/14 1117 03/02/14 0413 03/01/14 0611 MG 1.5* 1.3* 1.7 No results found for this basename: AMYLASE, in the last 168 hours No results found for this basename: PHART, PO2ART, NES7DEA, R7DKNBQE, BEART, in the last 1 68 hours No results found for this basename: APTT, INR, PTT, in the last 168 hours No results found for this basename: TSH, T3FREE, FREET4, in the last 168 hours Recent Labs Lab 03/02/14 0413 CKTOTAL 95 Radiology No results found. PROBLEM LIST Principal Problem: Vulvar abscess Active Problems: Sepsis(995.91) DM2 (diabetes mellitus, type 2) Renal insufficiency COPD (chronic obstructive pulmonary disease) Resolved Problems: * No resolved hospital problems. * ASSESSMENT & PLAN 1. Sepsis secondary to valvular abscess extending into groin, status post I and Of the vul va and L groin with wound vac in place Surgery consult appreciatedThe culture is polymicrob ial Continue broad-spectrum antibiotics, awaiting culture identification and susceptibility. .Appreciate ID consult 2. Diabetes. Blood sugar is actually very well controlled. Continue Lantus sliding scale. 3. Hypokalemia. Replace potassium. 4. DVT prophylaxis. Lovenox. 5. Acute kidney injury, Resolved. Hold olmesartan till clinical condition improves 6. Antibiotic-associated diarrhea. Clostridium difficile negative.Cont Lactinex.prn immodiu m 7. Depression. Continue Paxil. We will streamline the antibiotics once the culture results are back. 8 Anemia of acute illness check iron b12 and folate Start replacement Code Status: Full Code Rupesh Camara MD 03/02/2014 2:40 PM onversion Tr cole Provider Unknown - 03/02/2014 2:24 PM PSTFormatting of this note might be differ ent from the original. Therapy Progress Note by Jean Carlos Tabares PTA at 03/02/14 5245 Author: Jean Carlos Tabares PTA Service: (none) Author Type: Section Gang Worker Filed: 03/02/14 1420 Date of Service: 03/02/141423 Status: Signed Senior Consulting Manager: Jean Carlos Tabares PTA (Section Gang Worker) 03/02/14 1429 PT Last Visit PT Received On 03/02/14 Reason for Treatment Other (comment) (vulvar abscess) Requires PT Follow Up Yes Assistance Required 1 person Other Comments Comments pt lying in supine in bed willing to participate no new c/o Cognition Overall Cognitive Status WFL Orientation Level Oriented Bed Mobility Supine to Sit Mod assist (BLEs OOB or trunk to upright) Sit to Supine Mod assist (BLEs into bed or trunk to lower) Scooting Moderate assist Transfers Sit to/from Stand Minimal assist (steadying/contact guard) Mobility Ambulation Assistance Minimal assist Maximal Ambulation Distance (feet) 22 Total Ambulation Distance (feet) 22 Distance limited by? Patient's ability Pattern Alternating;Decreased rosalind Assistive Device Walker front wheeled Activity Tolerance Activity Tolerance Patient limited by fatigue Plan Treatment/Interventions Continue per Primary PT POC Progress Progressing toward goals Recommendation Recommendations Home with 24 hr supervision/assist Neo Connell MD - 03/02/2014 12:15 PM PSTFormatting of this note might be different from the janine ginal. Progress Notes by Neo Loyola MD at 12/06/14 1215 Author: Neo Loyola MD Service: General Surgery Author Type: Physician Filed: 03/02/149 Date of Service: 03/02/141214 Status: Signed Senior Consulting Manager: Neo Loyola MD (Physician) [facility] Service: General Surgery Progress Note Hospital Day: LOS:Hospital Day: 6 Post-Op Day: 2 Days Post-Op SUBJECTIVE Feeling better OBJECTIVE Vital Signs: Filed Vitals: 03/02/14 1106 BP: 139/65 Pulse: 88 Temp: 98.3 F (36.8 C) Resp: 18 SpO2: 93% PHYSICAL Still hypersensitive in flank superior to the drains Persistent leukocytosis ASSESSMENT Still at risk but subjectively improved PLAN I have planned for VAC change Tuesday by either Dr. Sims or myself. I expect to be able to DC drains at that time but will keep the VAC. NEO LOYOLA MD 03/02/2014 12:15 PM Yaron Bo DO - 03/02/2014 11:06 AM PST Progress Notes by Yaron Sims DO at 03/02/14 1106 Author: Yaron Sims DO Service: General Surgery Author Type: Physician Filed: 03/02/141108 Date of Service: 03/02/141105 Status: Signed Senior Consulting Manager: Yaron Sims DO (Physician) Hospital Day: LOS: 5 days Post-Op Day: 2 Days Post-Op Chief complaint: Abdominal pain Subjective Events Overnight: Subjectively more pain this AM. No emesis, afebrile. Assessment and Plan Extensive soft tissue infection, abdominal wall and perineum. She was taken to the OR by Dr. Jeevan Loyola for wound debridement, vac change 2 days ago. Her WBC is slightly down, but her bandemia is elevated. Plan is for OR tomorrow for wound debridement, examination under anesthesia, and vac change . aspirin 81 mg Oral Daily with breakfast calcium-vitamin D 2 tablet Oral BID clindamycin 900 mg Intravenous Q8H insulin aspart 0-10 Units Subcutaneous TID AC insulin aspart 0-5 Units Subcutaneous Nightly insulin aspart 10 Units Subcutaneous TID AC insulin glargine 30 Units Subcutaneous BID lactobacillus 1 packet Oral 4x Daily lidocaine buffered 1% 0.5 mL Intradermal Once meropenem 1 g Intravenous Q8H omeprazole 20 mg Oral QAM AC PARoxetine 20 mg Oral QAM sodium chloride 0.9 % 10 mL Intravenous Q12H SULEMAN vancomycin 17 mg/kg Intravenous Q12H dextrose acetaminophen, acetaminophen, dextrose, dextrose, dextrose, glucagon, glucagon, hydrALAZINE , HYDROmorphone, HYDROmorphone, lidocaine, magnesium sulfate, magnesium sulfate, magnesium s ulfate, ondansetron, ondansetron, oxyCODONE, phosphorus, polyethylene glycol, potassium chlo ride, potassium chloride, potassium chloride, sodium chloride 0.9 %, sodium chloride 0.9 %, sodium phosphate IVPB 20 mmol, sodium phosphate IVPB 45 mmol, zolpidem Objective Vital Signs: BP 129/61 | Pulse 92 | Temp(Src) 97.8 F (36.6 C) (Axillary) | Resp 18 | Ht 1.575 m (5' 2") | Wt 110.179 kg (242 lb 14.4 oz) | BMI 44.42 kg/m2 | SpO2 91% | ? No Patient Vitals for the past 24 hrs: BP Temp Temp src Pulse Resp SpO2 Weight 03/02/14 0744 129/61 mmHg 97.8 F (36.6 C) - 92 18 91 % - 03/02/14 0447 114/55 mmHg 97.8 F (36.6 C) Axillary 104 20 90 % 110.179 kg (242 lb 14.4 oz) 03/01/14 2359 135/64 mmHg 97.9 F (36.6 C) Axillary 97 20 90 % - 03/01/14 1910 117/55 mmHg 98.6 F (37 C) Oral 114 20 91 % - 03/01/14 1526 141/63 mmHg 99.4 F (37.4 C) Oral 76 16 90 % - 03/01/14 1123 114/57 mmHg 98.5 F (36.9 C) Oral 78 16 98 % - Constitutional: Alert, cooperative, no distress Respiratory: Respirations unlabored Cardiovascular: Regular rate, Abdomen: Psychiatric: Vac and sump drains in place Affect normal DATA CBC: Lab Results Component Value Date WBC 17.8* 03/02/2014 RBC 3.02* 03/02/2014 HGB 7.8* 03/02/2014 HCT 24.9* 03/02/2014 MCV 82.5 03/02/2014 MCH 25.9* 03/02/2014 MCHC 31.4* 03/02/2014 RDW 47.3 03/02/2014 PLT 286 03/02/2014 MPV 8.0 03/02/2014 DIFFTYPE MANUAL 03/02/2014 CMP: Lab Results Component Value Date NA 137 03/02/2014 K 3.4* 03/02/2014 CL 111* 03/02/2014 CO2 21* 03/02/2014 ANIONGAP 8 03/02/2014 GLUF 121* 03/02/2014 BUN 7* 03/02/2014 CREATININE 0.59 03/02/2014 BCR 12 03/02/2014 CA 7.6* 03/02/2014 PROT 5.1* 03/02/2014 ALB 2.0* 03/02/2014 GLOB 3.1 03/02/2014 BILITOT 0.4 03/02/2014 ALP 129* 03/02/2014 AST 20 03/02/2014 ALT 10 03/02/2014 EGFR >60 03/02/2014 Hepatic Function Panel: Lab Results Component Value Date PROT 5.1* 03/02/2014 ALB 2.0* 03/02/2014 BILITOT 0.4 03/02/2014 ALP 129* 03/02/2014 AST 20 03/02/2014 ALT 10 03/02/2014 Problem List Principal Problem: Vulvar abscess Active Problems: Sepsis(995.91) DM2 (diabetes mellitus, type 2) Renal insufficiency COPD (chronic obstructive pulmonary disease) Disposition: Stable Code Status: Full Code anina Zhou MD - 03/01/2014 6:02 PM PST Progress Notes by Janina Zhou MD at 03/01/141801 Author: Janina Zhou MD Service: Infectious Disease Author Type: Physician Filed: 03/02/14 1039 Date of Service: 03/01/141801 Status: Addendum Senior Consulting Manager: Janina Zhou MD (Physician) Related Notes: Original Note by Janina Zhou MD (Physician) filed at 03/02/14 1037 CONSULT NOTE 03/02/2014 10:36 AM PRIMARY PHYSICIAN Jean Carlos Crowell CONSULT REQUEST FROM Neo Loyola MD HISTORY OF PRESENT ILLNESS The patient is a 58 y.o.-year-old female with significant problems PMH of diabetes presented to [facility] with high fever, chills, vulvar pain that started 1 04/26/13 S/p I and D on 02/25/14 Incision and drainage of left vulvar abscess, breaking up of loculations, packing and Penro se drain placement Culture show mix odette on 02/25/14 Day 6 of clindamycin Day 3 of meropenem Day 6 of vancomycin. Culture show mix anaerobe infection Due to the left groin infection, thus an infectious disease (ID) consult done for further e valuation and management. 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; Laterality: Left; LEFT VULVAR ABSCESS Irrigation & debridement Left 02/28/2014 Procedure: IRRIGATION & DEBRIDEMENT; Surgeon: Neo Loyola MD; Location: [facility] MAIN OR; Service: General; Laterality: Left; Current Facility-Administered Medications Medication Dose Route Frequency Provider Last Rate Last Dose acetaminophen (TYLENOL) tablet 650 mg 650 mg Oral Q6H PRN Presley Kat MD 650 mg at 02/28/14 0032 Or acetaminophen (TYLENOL) suppository 650 mg 650 mg Rectal Q6H PRN Presley Kat MD 650 mg at 02/25/14 1915 aspirin chewable tablet 81 mg 81 mg Oral Daily with breakfast Max Peralta, DO 81 mg at 03/02/14 0723 calcium-vitamin D (OSCAL) 250-125 MG-UNIT per tablet 2 tablet 2 tablet Oral BID Max Peralta DO 2 tablet at 03/02/14 0723 clindamycin (CLEOCIN) IVPB 900 mg 900 mg Intravenous Q8H Presley Kat MD 900 mg at 03/02/14 0848 dextrose 10 % infusion Intravenous Continuous PRN Max Peralta, dextrose 50 % solution 12 mL 12 mL Intravenous PRN Max Peralta, DO dextrose 50 % solution 25 mL 25 mL Intravenous PRN Max Peralta, DO glucagon (GLUCAGEN) injection 0.5 mg 0.5 mg Intramuscular PRN Max Peralta, DO glucagon (GLUCAGEN) injection 1 mg 1 mg Intramuscular PRN Max Peralta, DO hydrALAZINE (APRESOLINE) injection 10 mg 10 mg Intravenous Q6H PRN Max Peralta, DO HYDROmorphone (DILAUDID) injection 0.5 mg 0.5 mg Intravenous Q3H PRN Presley Kat MD 0.5 mg at 03/01/14 0928 Or HYDROmorphone (DILAUDID) injection 1 mg 1 mg Intravenous Q3H PRN Presley Kat MD 1 mg at 03/02/14 0529 insulin aspart (NOVOLOG) injection 0-10 Units 0-10 Units Subcutaneous TID AC Max Vaishnavi Khushboo retana, DO 2 Units at 03/02/14 0649 insulin aspart (NOVOLOG) injection 0-5 Units 0-5 Units Subcutaneous Nightly Max Vaishnavi Hernán menchaca, DO 0 Units at 03/01/14 2258 insulin aspart (NOVOLOG) injection 10 Units 10 Units Subcutaneous TID AC Max Vaishnavi Fabian, DO 10 Units at 03/02/14 0648 insulin glargine (LANTUS) injection 30 Units 30 Units Subcutaneous BID Max Peralta, D O 30 Units at 03/02/14 0736 lactobacillus (FLORANEX) granules 1 packet 1 packet Oral 4x Daily Rupesh Camara MD 1 packet at 03/02/14 0722 lidocaine (XYLOCAINE) 4 % external solution Topical PRN Neo Loyola MD lidocaine buffered 1% injection 0.5 mL 0.5 mL Intradermal Once Rupesh Camara MD magnesium sulfate 1 g/50 mL IVPB 1 g Intravenous PRN Rupesh Camara MD 1 g at 0633 Or magnesium sulfate 2 g/50 mL IVPB 2 g Intravenous PRN Rupesh Camara MD Or magnesium sulfate 3 g/50 mL IVPB 3 g Intravenous PRN Rupesh Camara MD meropenem (MERREM) 1 g in sodium chloride (IV) 0.9 % 50 mL IVPB 1 g Intravenous Q8H Idania Negrete MD 1 g at 03/02/14 0730 omeprazole (PRILOSEC) capsule 20 mg 20 mg Oral QAM AC Max Peralta, DO 20 mg at 1209/08 0625 ondansetron (ZOFRAN) tablet 4 mg 4 mg Oral Q6H PRN Presley Kat MD Or ondansetron (ZOFRAN) injection 4 mg 4 mg Intravenous Q6H PRN Presley Kat MD oxyCODONE (ROXICODONE) immediate release tablet 10 mg 10 mg Oral Q4H PRN Rupesh Camara MD 10 mg at 03/02/14 1014 PARoxetine (PAXIL) tablet 20 mg 20 mg Oral QAM Max Vaishnavi Fabian, DO 20 mg at 03/02/14 07 23 phosphorus (K PHOS NEUTRAL) tablet 2 tablet 500 mg Oral PRN Rupesh Camara MD Or sodium phosphate 20 mmol in sodium chloride (IV) 0.9 % 100 mL IVPB 20 mmol Intravenous PRN Rupesh Camara MD Or sodium phosphate 45 mmol in sodium chloride (IV) 0.9 % 100 mL IVPB 45 mmol Intravenous PRN Rupesh Camara MD 45 mmol at 02/27/14 1327 polyethylene glycol (GLYCOLAX) packet 17 g 17 g Oral Daily PRN Presley Kat MD potassium chloride 20 mEq in 260 mL IVPB 20 mEq Intravenous PRN Rupesh Camara MD 20 mEq at 03/01/14 1449 Or potassium chloride 40 mEq in 520 mL IVPB 40 mEq Intravenous PRN Rupesh Camara MD 40 mEq at 03/02/14 0633 Or potassium chloride 60 mEq in 530 mL IVPB 60 mEq Intravenous PRN Rupesh Camara MD sodium chloride 0.9 % flush 10 mL 10 mL Intravenous Q12H SULEMAN Rupesh Camara MD 10 mL at 03/02/14 1016 sodium chloride 0.9 % flush 20 mL 20 mL Intravenous PRN Rupesh Camara MD sodium chloride 0.9 % flush 20 mL 20 mL Intravenous PRN Rupesh Camara MD vancomycin (VANCOCIN) 1750 mg/285 mL IVPB 17 mg/kg Intravenous Q12H Watson Negrete MD 1,750 mg at 03/02/14 0239 zolpidem (AMBIEN) tablet 5 mg 5 mg Oral Nightly PRN Presley Kat MD Allergies Allergen Reactions Levaquin [Levofloxacin] Other (See Comments) Muscle tension Fosamax [Alendronate] Nausea Only and GI Distress Ibuprofen GI Distress History Social History Marital Status: Spouse Name: N/A Number of Children: N/A Years of Education: N/A Occupational History Not on file. Social History Main Topics Smoking status: Current Every Day Smoker -- 0.50 packs/day for 30 years Smokeless tobacco: Not on file Alcohol Use: No Drug Use: Not on file Sexual Activity: Not on file Other Topics Concern Not on file Social History Narrative With smoking for 50 years . No alcohol intake. Recreational Drug Use No Travel No Pets Immunization History Administered Date(s) Administered Tdap 03/01/2014 The patient had both the vaccines for Pneumococcal Influenza History reviewed. No pertinent family history. REVIEW OF SYSTEMS General: The patient noted to have no problem of fever,no weight loss and with chills. Neurologic: Denies any headache, any lightheadedness. No loss of consciousness or seizure. Cardiac: Denies Chest Pain, Palpitation, Dyspnea on Exertion Pulmonary: Denies cough, wheezing and hemoptysis GASTROINTESTINAL: Denies nausea vomiting, and diarrhea. GENITOURINARY: Noted no dysuria, urgency, or frequency. Hematological : Denies any ecchymosis, bleeding or hematuria Endocrine: Denies any polyphagia, polyuria or hot and cold intolerance Musculoskeletal: no new joint pain and swelling. Skin : Denies any new rashes or cutaneous changes. Rest of the review of systems is unremarkable. PHYSICAL EXAMINATION VITAL SIGNS Wt Readings from Last 3 Encounters: 03/02/14 110.179 kg (242 lb 14.4 oz) 03/02/14 110.179 kg (242 lb 14.4 oz) 03/02/14 110.179 kg (242 lb 14.4 oz) Temp Readings from Last 3 Encounters: 03/02/14 97.8 F (36.6 C) 03/02/14 97.8 F (36.6 C) 03/02/14 97.8 F (36.6 C) BP Readings from Last 3 Encounters: 03/02/14 129/61 03/02/14 129/61 03/02/14 129/61 Pulse Readings from Last 3 Encounters: 03/02/14 92 03/02/14 92 03/02/14 92 Head: Normocephalic atraumatic HEENT: [place] palpebral conjunctivae. Anicteric sclerae. No tonsillopharyngeal congestion. Neck : Noted no Cervical Lymphadenopathy CHEST:Clear Breath Sounds Bilateral . HEART: Regular rate and rhythm. No murmurs thrills or rubs ABDOMEN: Soft, flat. No tenderness. No hepatosplenomegaly. GROIN AREA: loeft groin with woudn vacc. EXTREMITIES: Lower extremities no edema. Both Feet noted to have no edema. Left arm with picc line. NEUROLOGIC: No localizing signs. Skin : with No rash ecchymosis. LABORATORY DATA Lab Results Component Value Date WBC 17.8* 03/02/2014 HGB 7.8* 03/02/2014 HCT 24.9* 03/02/2014 PLT 286 03/02/2014 ALT 10 03/02/2014 AST 20 03/02/2014 NA 137 03/02/2014 K 3.4* 03/02/2014 CL 111* 03/02/2014 CREATININE 0.59 03/02/2014 BUN 7* 03/02/2014 CO2 21* 03/02/2014 GLUF 121* 03/02/2014 HGBA1C 7.8* 02/27/2014 Hepatic Function Panel: Lab Results Component Value Date PROT 5.1* 03/02/2014 ALB 2.0* 03/02/2014 BILITOT 0.4 03/02/2014 ALP 129* 03/02/2014 AST 20 03/02/2014 ALT 10 03/02/2014 Lipase: No results found for this basename: LIPASE U/A: No results found for this basename: COLORU, CLARITYU, MEROPENEM, LEUKOCYTESUR, NITRITE, UROBILINOGEN, PROTEINUA, PHUR, BLOODU, KETONES, BILIRUBINUR, GLUCOSEU DIAGNOSTIC IMAGING Order Status: Completed Updated: 02/27/14 1825 Narrative: ANA ROSA WRIGHT CT ABDOMEN PELVIS W CONTRAST 02/27/2014 4:47 PM HISTORY: 58 years. Female. Vulvar abscess and pain TECHNIQUE: 5-mm axial images were acquired through the abdomen and pelvis. Oral Contrast: Readi-Cat IV contrast: 100 mL IsoVue 300 COMPARISON: None. FINDINGS: Bilateral atelectasis and symmetric pleural effusions present. No cardiac enlargement The distal esophagus is normal. The liver is normal in size, position, contour and attenuation. No solid or cystic masses a re noted. No intrahepatic biliary ductal enlargement is seen. The portal vein and hepatic ve ins are normal. The spleen is normal in size and attenuation. No solid or cystic masses are noted. The pancreas is normal in size and attenuation. No solid or cystic masses are noted. The gallbladder is not visualized The adrenal glands are normal in size bilaterally. There is no evidence of an adrenal adeno ma or hyperplasia. The kidneys are symmetric in size bilaterally and show no evidence of a solid or cystic mas s. No hydronephrosis is noted. No stones are seen in the collecting systems. The aorta and vena cava are normal in caliber throughout their visualized course including the iliac and femoral vessels. No free fluid or free air is present. No adenopathy is seen in the abdomen or pelvis. The stomach, duodenum, jejunum, ileum, ileocecal valve are normal. No air-fluid levels are seen to suggest obstruction. The appendix is identified and is normal. The ascending colon, transverse colon, descending colon, sigmoid colon and rectum demonstrate normal wall thickne ss. No diverticulosis is noted. In the pelvis the bladder is fluid filled and has a normal contour and wall thickness. No i ntraluminal filling defects are seen. No diverticulum is noted. The muscles are symmetric. No focal atrophy or soft tissue mass is seen. No hernias are tiffany ntified. In the left side of the pelvis, there is extensive air dissection from the left perineum, c ommencing on the lowest image obtained. The wall the are not detected on this examination. T here is air dissecting into the left flank, extending superiorly up to image 251/5. There is no abscess formation along the course of this air. Is possible that this air is dissected a ssociated with a surgical intervention. There is broad protrusion of bowel contents into the pannus centrally. This extends down to a point at the pubic symphysis. Vazquez catheter lies in the small bladder. The patient has had a prior hysterectomy. The osseous structures do not demonstrate lytic or blastic lesions. The SI joints and hip j oints are normal. Impression: 1. Air tracking from the left. Medium superiorly in the extraperitoneal spaces along the l eft flank. Rule out cells associated with this dissecting air. A bulla are not depicted on t his examination. 2. Bilateral symmetric pleural effusions with bibasilar atelectasis 3. Protrusion of bowel loops into the pannus just above the pubic symphysis. This is broad- based and does not represent a focal herniation. 4. The gallbladder is not visualized. No surgical clips are seen. Ana Rosa Wright is a 58 y.o. female with the following Problems Patient Active Problem List Diagnosis Vulvar abscess Sepsis(995.91) DM2 (diabetes mellitus, type 2) Renal insufficiency COPD (chronic obstructive pulmonary disease) Plan: CBC CMP ESR CRP in am. ' Follow up Blood culture 2x on different site. Continue with iv meropenem, clindamycin and vancomycin Discussed with Dr. Loyola who agreed and will proceed As plan. Thank you very much for the consult. JANINA ZHOU MD onversion Transaction , Provider Unknown - 03/01/2014 3:17 PM PST Progress Notes by rAben Valentin RPH at 03/01/141516 Author: Arben Valentin RPH Service: Pharmacy Author Type: Pharmacist Filed: 03/01/141516 Date of Service: 03/01/141516 Status: Signed Senior Consulting Manager: Arben Valentin RPH (Pharmacist) Vancomycin day 2 addendum- First dose on restart today was not given until 1450 so the tro ugh will be checked at 1400 on 03/02. >> ARBEN VALENTIN 03/01/2014 08:53 Vancomycin day 2, est crcl 83.7ml/min, vancomycin was re-started by Dr. Negrete on 05/[address] Loyola discontinued it late on 02/[address] Rosie cotton had wanted it re-started. I checked with Dr. Negrete and we will continue the Van comcyin per his orders. Will continue dosing at 1750mg (17mg/kg) IV q12h next dose at 1000 this am and will check trough level at 0900 on 03/02. Goal trough is 15-20. Watson Awad MD - 03/01/2014 3:14 PM PST Progress Notes by Watson Negrete MD at 03/01/14 1514 Author: Watson Negrete MD Service: Infectious Disease Author Type: Physician Filed: 03/01/14 1529 Date of Service: 03/01/141513 Status: Signed Senior Consulting Manager: Watson Negrete MD (Physician) [facility] Service: Infectious Diseases Progress Note Hospital Day: LOS: 4 days Post-Op Day: 1 Day Post-Op CC: f/u Diane's gangrene SUBJECTIVE/OVERNIGHT EVENTS Taken to the OR yesterday for debridement and exploration. Had episodes of hypotension, res uscitated with iv fluids. Today pain on left flank persists. Has 2 drains and wound vac. MEDICATIONS: aspirin 81 mg Oral Daily with breakfast calcium-vitamin D 2 tablet Oral BID clindamycin 900 mg Intravenous Q8H insulin aspart 0-10 Units Subcutaneous TID AC insulin aspart 0-5 Units Subcutaneous Nightly insulin aspart 10 Units Subcutaneous TID AC insulin glargine 30 Units Subcutaneous BID lactobacillus 1 packet Oral 4x Daily lidocaine buffered 1% 0.5 mL Intradermal Once meropenem 1 g Intravenous Q8H omeprazole 20 mg Oral QAM AC PARoxetine 20 mg Oral QAM phosphorus 500 mg Oral BID sodium chloride 0.9 % 10 mL Intravenous Q12H SULEMAN sodium chloride 0.9 % 10 mL Intravenous Q12H SULEMAN vancomycin 17 mg/kg Intravenous Q12H dextrose PRN Medications acetaminophen, acetaminophen, dextrose, dextrose, dextrose, glucagon, glucagon, hydrALAZINE , HYDROmorphone, HYDROmorphone, lidocaine, magnesium sulfate, magnesium sulfate, magnesium s ulfate, ondansetron, ondansetron, oxyCODONE, phosphorus, polyethylene glycol, potassium chlo ride, potassium chloride, potassium chloride, sodium chloride 0.9 %, sodium chloride 0.9 %, sodium phosphate IVPB 20 mmol, sodium phosphate IVPB 45 mmol, zolpidem PHYSICAL EXAM Vital Signs: BP 114/57 | Pulse 78 | Temp(Src) 98.5 F (36.9 C) (Oral) | Resp 16 | Ht 1.575 m (5' 2") | Wt 108.5 kg (239 lb 3.2 oz) | BMI 43.74 kg/m2 | SpO2 98% | ? No Temp (24hrs), Av.7 F (37.1 C), Min:97.6 F (36.4 C), Max:100.4 F (38 C) General Appearance: Alert, obese, cooperative, no distress Head: Normocephalic, without obvious abnormality, atraumatic Eyes: PERRL, conjunctiva/corneas clear. Throat: Lips, mucosa, and tongue normal; teeth and gums normal Neck: Supple, symmetrical, trachea midline, no adenopathy; thyroid: no enlargement/tenderness/nodules; no carotid bruit or JVD Back: Symmetric, no curvature, ROM normal, no CVA tenderness Lungs: Clear to auscultation bilaterally, respirations unlabored Chest Wall: No tenderness or deformity Heart: Regular rate and rhythm, S1 and S2 normal, no murmur, rub or gallop Abdomen: Soft, bowel sounds active all four quadrants, there is a left flank large drai n and a left inguinal drain, fluid is sanguinous. Pain on palpation is still present. Extremities: Extremities normal, atraumatic, no cyanosis or edema Pulses: 2+ and symmetric all extremities Skin: Skin color, texture, turgor normal, no rashes or lesions Lymph nodes: Cervical, supraclavicular, and axillary nodes normal Neurologic: Alert and oriented to time, place and person. CNII-XII intact, normal strengt h, sensation and reflexes throughout. No focal neurological deficits Venous access: : L PICC No signs of infection. Induration left labia majora. LABS: All labs reviewed. CBC: Lab Results Component Value Date WBC 20.4* 03/01/2014 RBC 2.88* 03/01/2014 HGB 7.6* 03/01/2014 HCT 23.7* 03/01/2014 MCV 82.4 03/01/2014 MCH 26.5* 03/01/2014 MCHC 32.1 03/01/2014 RDW 47.7 03/01/2014 PLT 291 03/01/2014 MPV 7.7 03/01/2014 DIFFTYPE MANUAL 03/01/2014 CMP: Lab Results Component Value Date NA 144* 03/01/2014 K 3.6 03/01/2014 CL 115* 03/01/2014 CO2 21* 03/01/2014 ANIONGAP 12 03/01/2014 GLUF 70 03/01/2014 BUN 11 03/01/2014 CREATININE 0.86 03/01/2014 BCR 13 03/01/2014 CA 7.2* 03/01/2014 PROT 4.9* 03/01/2014 ALB 1.4* 03/01/2014 GLOB 3.5 03/01/2014 BILITOT 0.5 03/01/2014 ALP 109 03/01/2014 AST 15 03/01/2014 ALT 12 03/01/2014 EGFR >60 03/01/2014 MICROBIOLOGY Results Procedure Component Value Units Date/Time Anaerobic Culture W/Gram Stain [[id number]] Collected: 02/25/142040 Specimen Description VULVA Updated: 02/28/14 0919 GRAM STAIN 3+ GRAM STAIN GRAM POSITIVE RODS GRAM STAIN 2+ GRAM STAIN GRAM POSITIVE COCCI GRAM STAIN 2+ GRAM STAIN WBC'S SEEN GRAM STAIN Result: REVIEW OF SMEAR BY MICROBIOLOGY SHOWS THE FOLLOWING: GRAM STAIN 3+ GRAM STAIN GRAM POSITIVE COCCI GRAM STAIN 4+ GRAM STAIN GRAM POSITIVE RODS GRAM STAIN 3+ GRAM STAIN GRAM NEGATIVE RODS GRAM STAIN 2+ GRAM STAIN WBC'S SEEN CULTURE 2+ CULTURE NORMAL GENITAL ODETTE CULTURE 1+ CULTURE MIXED ANAEROBIC ODETTE CULTURE Result: Testing performed at [facility], [address] [place] [address] C diff toxin by PCR (TAT 3 hr in house) [[id number]] Collected: 02/27/142024 Specimen Information: Stool / Stool Updated: 02/27/14 2136 Toxigenic C Difficile NEGATIVE 027 NAP1 BI 027 NAP1 BI PRESUMPTIVE NEGATIVE Wound culture [[id number]] Collected: 02/25/14 1835 Specimen Information: Nasopharyngeal / OTHR-w source desc (F6) Updated: 02/27/14 1430 Specimen Description OTHER CULTURE 2+ CULTURE NORMAL UROGENITAL ODETTE CULTURE Result: Testing performed at [facility], [address] [place] [address] Blood Culture Set 1 [[id number]] Collected: 02/25/141953 Specimen Information: Blood / Blood, peripheral draw Updated: 02/27/1444 Specimen Description BLOOD, PERIPHERAL DRAW SPECIAL REQUESTS L HAND SPECIAL REQUESTS Result: Testing performed at [facility];[address] [facility];[place] [address] CULTURE NO GROWTH CULTURE Result: Testing performed at [facility], [address] [place] [address] Blood Culture Set 2 [[id number]] Collected: 02/25/141956 Specimen Information: Blood / Blood Updated: 02/27/14543 Specimen Description BLOOD, PERIPHERAL DRAW SPECIAL REQUESTS R HAND SPECIAL REQUESTS Result: Testing performed at [facility];[address] [facility];[place] [address] CULTURE NO GROWTH CULTURE Result: Testing performed at [facility], [address] [place] [address] IMAGING Reviewed images of : no new images for review. PROBLEM LIST Principal Problem: Vulvar abscess Active Problems: Sepsis(995.91) DM2 (diabetes mellitus, type 2) Renal insufficiency COPD (chronic obstructive pulmonary disease) ASSESSMENT & PLAN 58-y-o diabetic female with the following problems: 1. 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 Visible fascial tissue appeared not to be involved per OR report and there was no m yonecrosis. 2. Severe sepsis with hypotension. BP improved, stable at the moment. Cont iv fluid as need ed. 3. Polymicrobial infection, likely enterococcus, enterobacteriaceae and anaerobes. 4. Leukocytosis: Recent increase in the setting of aggressive debridement. Will cont to mon itor. Would continue broad spectrum antibiotics for now. May need additional debridements. Closely monitor pain and signs of toxicity. PICC in place. Anticipate 2 weeks with iv atbx. Watson Negrete MD 03/01/2014 3:14 PM Neo Echols MD - 03/01/2014 3:01 PM PST Progress Notes by Neo Loyola MD at 03/01/14 1501 Author: Neo Loyola MD Service: General Surgery Author Type: Physician Filed: 03/01/14 1505 Date of Service: 03/01/14 1501 Status: Signed Senior Consulting Manager: Neo Loyola MD (Physician) [facility] Service: General Surgery Progress Note Hospital Day: LOS:Hospital Day: 5 Post-Op Day: 1 Day Post-Op SUBJECTIVE The patient feels subjectively improved. Less pain but a lot of pain persists in the left upper flank above the most superior incision. This was an area of cellulitis but there did not appear to be any drainable pockets. OBJECTIVE Vital Signs: Filed Vitals: 03/01/14 1123 BP: 114/57 Pulse: 78 Temp: 98.5 F (36.9 C) Resp: 16 SpO2: 98% Filed Vitals: 03/01/14 0855 03/01/14 0905 03/01/14 0925 03/01/14 1123 BP: 99/50 120/59 129/60 114/57 Pulse: 78 Temp: 98.5 F (36.9 C) TempSrc: Oral Resp: 16 Height: Weight: SpO2: 98% Intake/Output Summary (Last 24 hours) at 03/01/14 1501 Last data filed at 03/01/14 0600 Gross per 24 hour Intake 38990 ml Output 74730 ml Net 4356 ml DATA Lab Results Component Value Date/Time WBC 20.4* 03/01/2014 6:11 AM HGB 7.6* 03/01/2014 6:11 AM HCT 23.7* 03/01/2014 6:11 AM PLT 291 03/01/2014 6:11 AM NA 144* 03/01/2014 6:11 AM K 3.6 03/01/2014 6:11 AM CREATININE 0.86 03/01/2014 6:11 AM AST 15 03/01/2014 6:11 AM AST 18 02/28/2014 5:32 AM AST 25 02/27/2014 6:25 AM ALT 12 03/01/2014 6:11 AM ALT 12 02/28/2014 5:32 AM ALT 11 02/27/2014 6:25 AM PHYSICAL Postop day one from excisional debridement in the pubis and extension of drain tract along the left groin. White blood cell count is up. Hemoglobin is down after several fluid bolus es for hypotension last night. Urine output is adequate after fluid challenge. Cellulitis is not clinically worse but is still present in the left flank. Erythema is les s. Large sump drains were flushed with 40 mL of sterile normal saline ASSESSMENT Clinically improved however white blood cell count is still elevated. PLAN Continue broad-spectrum antibiotics. Anticipate dressing change in OR on Tuesday. NEO LOYOLA MD 03/01/2014 3:01 PM Rupesh Delgado MD - 03/01/2014 9:43 AM PST Progress Notes by Rupesh Camara MD at 03/01/14942 Author: Rupesh Camara MD Service: Hospitalist Author Type: Physician Filed: 03/01/14944 Date of Service: 03/01/14942 Status: Signed Senior Consulting Manager: Rupesh Camara MD (Physician) [facility] Service: Hospitalist Progress Note Hospital Day: LOS: 4 days SUBJECTIVE Patient Summary: Events Overnight: Patient underwent I&D of L groin area and has wound vac Patient is a lert Ox3 L groin and flank pain much better with I&D No CP or SOA No nausea or vomiting Scheduled Medications aspirin 81 mg Oral Daily with breakfast calcium-vitamin D 2 tablet Oral BID clindamycin 900 mg Intravenous Q8H insulin aspart 0-10 Units Subcutaneous TID AC insulin aspart 0-5 Units Subcutaneous Nightly insulin aspart 10 Units Subcutaneous TID AC insulin glargine 30 Units Subcutaneous BID lactobacillus 1 packet Oral 4x Daily lidocaine buffered 1% 0.5 mL Intradermal Once meropenem 1 g Intravenous Q8H omeprazole 20 mg Oral QAM AC PARoxetine 20 mg Oral QAM phosphorus 500 mg Oral BID sodium chloride 0.9 % 10 mL Intravenous Q12H SULEMAN sodium chloride 0.9 % 10 mL Intravenous Q12H SULEMAN slljegf-pkywqlyxoe-yhegyxxks pertussis (Tdap) 0.5 mL Intramuscular Once vancomycin 17 mg/kg Intravenous Q12H Continuous Infusions dextrose sodium chloride (IV) 110 mL/hr at 02/26/14 1819 PRN Medications acetaminophen, acetaminophen, dextrose, dextrose, dextrose, glucagon, glucagon, hydrALAZINE , HYDROmorphone, HYDROmorphone, magnesium sulfate, magnesium sulfate, magnesium sulfate, ond ansetron, ondansetron, oxyCODONE, phosphorus, polyethylene glycol, potassium chloride, potas sium chloride, potassium chloride, sodium chloride 0.9 %, sodium chloride 0.9 %, sodium phos phate IVPB 20 mmol, sodium phosphate IVPB 45 mmol, zolpidem OBJECTIVE Vital Signs: BP 120/59 | Pulse 80 | Temp(Src) 97.6 F (36.4 C) (Oral) | Resp 16 | Ht 1.575 m (5' 2") | Wt 108.5 kg (239 lb 3.2 oz) | BMI 43.74 kg/m2 | SpO2 98% | ? No Physical Exam General Appearance: Alert, cooperative, no distress, appears stated age Lungs: Clear to auscultation bilaterally, respirations unlabored Heart: Regular rate and rhythm, S1 and S2 normal, no murmur, rub or gallop Abdomen: L groin tenderness With wound vac Extremities: Extremities normal, atraumatic, no cyanosis or edema Pulses: 2+ and symmetric all extremities Neurologic: CNII-XII intact, normal strength, sensation and reflexes throughout Groin exam deferred DATA Recent Labs Lab 03/01/14 0611 02/28/14 0532 02/27/14 0625 WBC 20.4* 17.9* 17.8* HGB 7.6* 9.0* 8.9* HCT 23.7* 28.4* 27.8* PLT 291 323 296 Recent Labs Lab 03/01/14 0611 02/28/14 0532 02/27/14 1743 02/27/14 0625 NA 144* 137 -- 140 K 3.6 3.4* 3.7 3.3* CL 115* 110* -- 111* CO2 21* 22* -- 21* BUN 11 11 -- 20 CREATININE 0.86 0.67 -- 0.82 PROT 4.9* 5.3* -- 5.6* BILITOT 0.5 0.5 -- 0.6 ALT 12 12 -- 11 AST 15 18 -- 25 Phosphorus: Lab Results Component Value Date PHOS 3.7 03/01/2014 No components found with this basename: LABALBU, Recent Labs Lab 03/01/14 0611 02/28/14 0532 02/27/14 0625 MG 1.7 1.6* 2.2 No results found for this basename: AMYLASE, in the last 168 hours No results found for this basename: PHART, PO2ART, KMF3BSB, C3VUIDFX, BEART, in the last 1 68 hours No results found for this basename: APTT, INR, PTT, in the last 168 hours No results found for this basename: TSH, T3FREE, FREET4, in the last 168 hours No results found for this basename: CKTOTAL, TROPONINI, TROPONINT, CKMBINDEX, in the last 168 hours Radiology No results found. PROBLEM LIST Principal Problem: Vulvar abscess Active Problems: Sepsis(995.91) DM2 (diabetes mellitus, type 2) Renal insufficiency COPD (chronic obstructive pulmonary disease) Resolved Problems: * No resolved hospital problems. * ASSESSMENT & PLAN 1. Sepsis secondary to valvular abscess, status post I and Of the vulva and L groin with w ound vac in place Surgery consult appreciatedThe culture is polymicrobial Continue broad-sp ectrum antibiotics, awaiting culture identification and susceptibility. .Appreciate ID consu lt 2. Diabetes. Blood sugar is actually very well controlled. Continue Lantus sliding scale. 3. Hypokalemia. Replace potassium. 4. DVT prophylaxis. Lovenox. 5. Acute kidney injury, Resolved. Hold olmesartan till clinical condition improves 6. Antibiotic-associated diarrhea. Clostridium difficile negative.Cont Lactinex.prn immodiu m 7. Depression. Continue Paxil. We will streamline the antibiotics once the culture results are back. PT consult PICC line to be placed today TdAP Code Status: Full Code Rupesh Camara MD 03/01/2014 9:43 AM Lew Dinh PT - 03/01/2014 9:05 AM PSTFormatting of this note might be different from the memo patrick Therapy Progress Note by Amanda Hollis PT at 03/01/14 09 Author: Amanda Hollis PT Service: (none) Author Type: Physical Therapist Filed: 03/01/1431 Date of Service: 03/01/14904 Status: Signed Senior Consulting Manager: Amanda Hollis PT (Physical Therapist) 03/01/14904 PT Last Visit PT Received On 03/01/14 Reason for Treatment Other (comment) (vulvar abscess and sepsis) Requires PT Follow Up Yes Follow up PT Only? No Assistance Required 2 person (due to multiple lines/tubes/wound vac) Yard Operator Needed No Precautions Other Precautions fall risk Other Comments Comments Pt a bit reluctant to participate in PT, but willing. Pt ambulated 20 ft with CLINICAL DIETETIC TECHNICIAN x 2. Pt not wanting to use FWW at this session, but may benefit from using it. Pt reports she has been working on bed ex independently. Cognition Overall Cognitive Status WFL Bed Mobility Rolling Moderate assist Supine to Sit Mod assist (BLEs OOB or trunk to upright) Sit to Supine Mod assist (BLEs into bed or trunk to lower) Scooting Moderate assist Transfers Sit to/from Stand Moderate assist (to arise OR lower);x 2 person Mobility Weight Bearing Status WBAT RLE;WBAT LLE Ambulation Assistance Minimal assist;X2 (CLINICAL DIETETIC TECHNICIAN x 2) Maximal Ambulation Distance (feet) 20 ft Total Ambulation Distance (feet) 20ft Distance limited by? Patient's ability Pattern Shuffling Assistive Device Other (Comment) (HHAx2) Activity Tolerance Activity Tolerance Patient limited by pain Safety Devices Safety Devices in Place (family present, call light in reach) Plan Treatment/Interventions Continue per Primary PT POC Progress Progressing toward goals Recommendation Recommendations Continue acute care therapy (Anticipate as pt progresses, she will be able to return....) Recommendation Comments ...home with assist from family. Pt may benefit from a FWW for bakari le, did not want to use at this session. Depending on pt progress, she may also benefit from bedside commode. Pre/peak/post Position BP Pulse rate O2 sats L/min pre supine 120/59 94 95% ra post supine 129/60 91 91% ra onversion Transact ion, Provider Unknown - 03/01/2014 9:00 AM PSTFormatting of this note might be different fr om the original. Case Management by AMY Bryson at 03/01/14899 Author: AMY Bryson Service: (none) Author Type: Professor Of French Filed: 03/01/14900 Date of Service: 03/01/14899 Status: Signed Senior Consulting Manager: AMY Bryson (Professor Of French) CM will continue to follow pt for possible outpatient wound-care needs. CM will recommend a physical therapy eval once pt no longer requires any additional surgeries. Dell CORDERO onaugustine Lawrenceaction, Provider Unknown - 03/01/2014 8:53 AM PST Progress Notes by Arben Valentin RPH at 03/01/14852 Author: Arben Valentin RPH Service: Pharmacy Author Type: Pharmacist Filed: 03/01/14852 Date of Service: 03/01/14852 Status: Signed Senior Consulting Manager: Arben Valentin RPH (Pharmacist) Vancomycin day 2, est crcl 83.7ml/min, vancomycin was re-started by Dr. Negrete on 05/[address] Loyola discontinued it late on 02/[address] Rosie cotton had wanted it re-started. I checked with Dr. Negrete and we will continue the Van comcyin per his orders. Will continue dosing at 1750mg (17mg/kg) IV q12h next dose at 1000 this am and will check trough level at 0900 on 03/02. Goal trough is 15-20. iPresley null MD - 02/28/2014 7:21 PM PSTFormatting of this note might be different from th e original. Progress Notes by Presley Kat MD at 02/28/141920 Author: Presley Kat MD Service: (none) Author Type: Physician Filed: 03/04/14 0652 Date of Service: 02/28/141920 Status: Signed Senior Consulting Manager: Presley Kat MD (Physician) [facility] Service: Obstetrics & Gynecology Progress Note Hospital Day: LOS: 3 days Post-Op Day: 3 Days Post-Op SUBJECTIVE Patient Summary: Events Overnight: Patient seen this morning. Continues to have febrile episodes, migel ecially in the afternoon/evening. Her vulvar pain and tenderness seems to have improved, bu t she is complaining primarily of left sided flank pain, with warmth of the area. Scheduled Medications aspirin 81 mg Oral Daily with breakfast calcium-vitamin D 2 tablet Oral BID clindamycin 900 mg Intravenous Q8H enoxaparin 40 mg Subcutaneous Q24H insulin aspart 0-10 Units Subcutaneous TID AC insulin aspart 0-5 Units Subcutaneous Nightly insulin aspart 10 Units Subcutaneous TID AC insulin glargine 30 Units Subcutaneous BID lactobacillus 1 packet Oral 4x Daily meropenem 1 g Intravenous Q8H omeprazole 20 mg Oral QAM AC PARoxetine 20 mg Oral QAM phosphorus 500 mg Oral BID sodium chloride 0.9 % 10 mL Intravenous Q12H SULEMAN vancomycin 17 mg/kg Intravenous Q12H Continuous Infusions dextrose sodium chloride (IV) 110 mL/hr at 02/26/14 1819 PRN Medications acetaminophen, acetaminophen, dextrose, dextrose, dextrose, glucagon, glucagon, hydrALAZINE , HYDROmorphone, HYDROmorphone, lidocaine, loperamide, magnesium sulfate, magnesium sulfate, magnesium sulfate, ondansetron, ondansetron, oxyCODONE, phosphorus, [MAR Hold] polyethylene glycol, potassium chloride, potassium chloride, potassium chloride, sodium chloride 0.9 %, sodium phosphate IVPB 20 mmol, sodium phosphate IVPB 45 mmol, [MAR Hold] zolpidem OBJECTIVE Vital Signs: BP 138/67 | Pulse 88 | Temp(Src) 98.8 F (37.1 C) (Oral) | Resp 16 | Ht 1.575 m (5' 2") | Wt 101.923 kg (224 lb 11.2 oz) | BMI 41.09 kg/m2 | SpO2 97% | ? No Temp: [98.3 F (36.8 C)-100.1 F (37.8 C)] 98.8 F (37.1 C) (02/28 1510) BP: (98-138)/(55-67) 138/67 mmHg (02/28 1510) Heart Rate: [74-107] 88 (02/28 1510) Resp: [16-20] 16 (02/28 1510) SpO2: [93 %-99 %] 97 % (02/28 1510) Weight: [101.923 kg (224 lb 11.2 oz)] 101.923 kg (224 lb 11.2 oz) (12/04 0325) General appearance: alert, appears stated age, cooperative, fatigued and moderately obese Abdomen: On the left flank, side ther is erythema and this area is tender to palpation. . Pelvic: The actual groin, mons and labia on the left side are less tender, but there is on going induration of the left labia majora, with tenderness, though somewhat less than previo us. DATA IMPRESSION: 1. Air tracking from the left. Medium superiorly in the extraperitoneal spaces along the le ft flank. Rule out cells associated with this dissecting air. A bulla are not depicted on th is examination. 2. Bilateral symmetric pleural effusions with bibasilar atelectasis 3. Protrusion of bowel loops into the pannus just above the pubic symphysis. This is broad- based and does not represent a focal herniation. 4. The gallbladder is not visualized. No surgical clips are seen. LEM LIST Principal Problem: Vulvar abscess Active Problems: Sepsis(995.91) DM2 (diabetes mellitus, type 2) Renal insufficiency COPD (chronic obstructive pulmonary disease) ASSESSMENT & PLAN Dr. Neo Loyola, general surgery, will be taking patient back to surgery for extension of the incision and drainage site up into the left flank, as needed. Possible drain placement etc. I have spoken with Dr. Loyola, and at this point he agrees to assume care. Disposition: Please see assessment and plan above. She will be going back to the operatin g room. General surgeon, Dr. Neo Loyola is taking over management. Code Status: Full Code PRESLEY KAT MD 02/28/2014 onversion Transa ction, Provider Unknown - 02/28/2014 6:59 PM PST Progress Notes by Elicia Sandoval RN at 02/28/141858 Author: Elicia Sandoval RN Service: (none) Author Type: Registered Nurse Filed: 02/28/14 959 Date of Service: 02/28/141858 Status: Signed Senior Consulting Manager: Elicia Sandoval RN (Registered Nurse) Report given to [facility] in [facility]. Rupesh Johnson i, MD - 02/28/2014 4:01 PM PSTFormatting of this note might be different fro m the original. Progress Notes by Rupesh Camara MD at 02/28/14 1601 Author: Rupesh Camara MD Service: Hospitalist Author Type: Physician Filed: 02/28/14 1602 Date of Service: 02/28/14 1601 Status: Signed Senior Consulting Manager: Rupesh Camara MD (Physician) [facility] Service: Hospitalist Progress Note Hospital Day: LOS: 3 days SUBJECTIVE Patient Summary: Events Overnight: Patient is alert Ox3 L groin and flank pain. No CP or SOA No nausea or vomiting Scheduled Medications aspirin 81 mg Oral Daily with breakfast calcium-vitamin D 2 tablet Oral BID clindamycin 900 mg Intravenous Q8H enoxaparin 40 mg Subcutaneous Q24H insulin aspart 0-10 Units Subcutaneous TID AC insulin aspart 0-5 Units Subcutaneous Nightly insulin aspart 10 Units Subcutaneous TID AC insulin glargine 30 Units Subcutaneous BID lactobacillus 1 packet Oral 4x Daily meropenem 1 g Intravenous Q8H omeprazole 20 mg Oral QAM AC PARoxetine 20 mg Oral QAM phosphorus 500 mg Oral BID sodium chloride 0.9 % 10 mL Intravenous Q12H SULEMAN vancomycin 17 mg/kg Intravenous Q12H Continuous Infusions dextrose sodium chloride (IV) 110 mL/hr at 02/26/14 1819 PRN Medications acetaminophen, acetaminophen, dextrose, dextrose, dextrose, glucagon, glucagon, hydrALAZINE , HYDROmorphone, HYDROmorphone, lidocaine, loperamide, magnesium sulfate, magnesium sulfate, magnesium sulfate, ondansetron, ondansetron, oxyCODONE, phosphorus, [MAR Hold] polyethylene glycol, potassium chloride, potassium chloride, potassium chloride, sodium chloride 0.9 %, sodium phosphate IVPB 20 mmol, sodium phosphate IVPB 45 mmol, [MAR Hold] zolpidem OBJECTIVE Vital Signs: BP 138/67 | Pulse 88 | Temp(Src) 98.8 F (37.1 C) (Oral) | Resp 16 | Ht 1.575 m (5' 2") | Wt 101.923 kg (224 lb 11.2 oz) | BMI 41.09 kg/m2 | SpO2 97% | ? No Physical Exam General Appearance: Alert, cooperative, no distress, appears stated age Lungs: Clear to auscultation bilaterally, respirations unlabored Heart: Regular rate and rhythm, S1 and S2 normal, no murmur, rub or gallop Abdomen: L groin tenderness Extremities: Extremities normal, atraumatic, no cyanosis or edema Pulses: 2+ and symmetric all extremities Neurologic: CNII-XII intact, normal strength, sensation and reflexes throughout Groin exam deferred DATA Recent Labs Lab 02/28/14 0532 02/27/14 0625 02/26/14 0621 WBC 17.9* 17.8* 23.0* HGB 9.0* 8.9* 9.0* HCT 28.4* 27.8* 29.1* PLT 323 296 279 Recent Labs Lab 02/28/14 0532 02/27/14 1743 02/27/14 0625 02/26/14 0630 02/25/14 1840 NA 137 -- 140 -- 138 -- 137 K 3.4* 3.7 3.3* < > 3.1* < > 3.6 CL 110* -- 111* -- 109 -- 108 CO2 22* -- 21* -- 21* -- 21* BUN 11 -- 20 -- 33* -- 35* CREATININE 0.67 -- 0.82 -- 1.11* -- 1.23* PROT 5.3* -- 5.6* -- -- -- 6.4 BILITOT 0.5 -- 0.6 -- -- -- 0.7 ALT 12 -- 11 -- -- -- 10 AST 18 -- 25 -- -- -- 17 < > = values in this interval not displayed. Phosphorus: Lab Results Component Value Date PHOS 2.8 02/28/2014 No components found with this basename: LABALBU, Recent Labs Lab 02/28/14 0532 02/27/14 0625 02/26/14 0630 MG 1.6* 2.2 2.0 No results found for this basename: AMYLASE, in the last 168 hours No results found for this basename: PHART, PO2ART, VRN6WTR, P8MRIOGK, BEART, in the last 1 68 hours No results found for this basename: APTT, INR, PTT, in the last 168 hours No results found for this basename: TSH, T3FREE, FREET4, in the last 168 hours No results found for this basename: CKTOTAL, TROPONINI, TROPONINT, CKMBINDEX, in the last 168 hours Radiology No results found. PROBLEM LIST Principal Problem: Vulvar abscess Active Problems: Sepsis(995.91) DM2 (diabetes mellitus, type 2) Renal insufficiency COPD (chronic obstructive pulmonary disease) Resolved Problems: * No resolved hospital problems. * ASSESSMENT & PLAN 1. Sepsis secondary to valvular abscess, status post I and D. Possible extension in L groin space Surgery consulted The culture is polymicrobial Continue broad-spectrum antibiotics, a waiting culture identification and susceptibility. .Appreciate ID consult 2. Diabetes. Blood sugar is actually very well controlled. Continue Lantus sliding scale. C heck hemoglobin A1C. 3. Hypokalemia. Replace potassium. 4. DVT prophylaxis. Lovenox. 5. Acute kidney injury, Resolved. Hold olmesartan ftill clinical condition improves 6. Antibiotic-associated diarrhea. Clostridium difficile negative.Cont Lactinex.prn immodiu m 7. Depression. Continue Paxil. We will streamline the antibiotics once the culture results are back. NPO for possible surgery Code Status: Full Code Rupesh Camara MD 02/28/2014 4:01 PM onversion Tr ansaction, Provider Unknown - 02/28/2014 3:26 PM PSTFormatting of this note might be differ ent from the original. Progress Notes by Elana Loyola RPH at 02/28/14 1526 Author: Elana Loyola RPH Service: (none) Author Type: Pharmacist Filed: 02/28/14 1526 Date of Service: 02/28/141525 Status: Signed Senior Consulting Manager: Elana Loyola RPH (Pharmacist) Clinical Pharmacy Note: Initiation of Vancomycin Pharmacy Dosing Ana Rosa Kemi Wright 58 y.o. female 1.575 m (5' 2") 101.923 kg (224 lb 11.2 oz) Body mass index is 41.09 kg/(m^2). CREATININE Date Value Range Status 02/28/2014 0.67 0.50 - 1.00 mg/dL Final Testing performed at [facility], [address] [place] [address] Estimated CrCl : CREATININE: 0.67 (02/28/14 0532) Estimated creatinine clearance - 103.5 mL/min Indications: Necrotizing soft tissue infection Dose per Protocol: Loading Dose: Vancomycin 1 mg (17.2 mg/kg TBW) IV Q12H First Dose to be Given: 02/28 @ 1600 Vancomycin Trough Due: 03/02 @ 0300 Goal Trough for Vancomycin: 15-20 mcg/mL Pharmacist: Elana Loyola 02/28/2014 3:24 PM Watson Awad MD - 02/28/2014 3:14 PM PST Progress Notes by Watson Negrete MD at 02/28/14 1514 Author: Watson Negrete MD Service: Infectious Disease Author Type: Physician Filed: 02/28/14 1529 Date of Service: 02/28/141513 Status: Signed Senior Consulting Manager: Watson Negrete MD (Physician) [facility] Service: Infectious Diseases Progress Note Hospital Day: LOS: 3 days Post-Op Day: 3 Days Post-Op CC: f/u vulvar abscess SUBJECTIVE/OVERNIGHT EVENTS Left flank pain started day 1 postop. Continued to worsen since yesterday. CT scan shows fa t stranding and gas tracking up on the left flank soft tissues. Afebrile but tachycardia persists. MEDICATIONS: aspirin 81 mg Oral Daily with breakfast calcium-vitamin D 2 tablet Oral BID clindamycin 900 mg Intravenous Q8H enoxaparin 40 mg Subcutaneous Q24H insulin aspart 0-10 Units Subcutaneous TID AC insulin aspart 0-5 Units Subcutaneous Nightly insulin aspart 10 Units Subcutaneous TID AC insulin glargine 30 Units Subcutaneous BID lactobacillus 1 packet Oral 4x Daily meropenem 1 g Intravenous Q8H omeprazole 20 mg Oral QAM AC PARoxetine 20 mg Oral QAM phosphorus 500 mg Oral BID sodium chloride 0.9 % 10 mL Intravenous Q12H SULEMAN vancomycin 15 mg/kg Intravenous Q12H dextrose sodium chloride (IV) 110 mL/hr at 02/26/14 1819 PRN Medications acetaminophen, acetaminophen, dextrose, dextrose, dextrose, glucagon, glucagon, hydrALAZINE , HYDROmorphone, HYDROmorphone, lidocaine, loperamide, magnesium sulfate, magnesium sulfate, magnesium sulfate, ondansetron, ondansetron, oxyCODONE, phosphorus, [MAR Hold] polyethylene glycol, potassium chloride, potassium chloride, potassium chloride, sodium chloride 0.9 %, sodium phosphate IVPB 20 mmol, sodium phosphate IVPB 45 mmol, [MAR Hold] zolpidem PHYSICAL EXAM Vital Signs: BP 138/67 | Pulse 88 | Temp(Src) 98.8 F (37.1 C) (Oral) | Resp 16 | Ht 1.575 m (5' 2") | Wt 101.923 kg (224 lb 11.2 oz) | BMI 41.09 kg/m2 | SpO2 97% | ? No Temp (24hrs), Av.3 F (37.4 C), Min:98.3 F (36.8 C), Max:101.2 F (38.4 C) General Appearance: Alert, cooperative, no distress Head: Normocephalic, without obvious abnormality, atraumatic Eyes: PERRL, conjunctiva/corneas clear. Nose: Nares normal, septum midline, mucosa normal, no drainage or sinus tenderness Throat: Lips, mucosa, and tongue normal; teeth and gums normal Neck: Supple, symmetrical, trachea midline, no adenopathy; thyroid: no enlargement/tenderness/nodules; no carotid bruit or JVD Back: Symmetric, no curvature, ROM normal, no CVA tenderness Lungs: Clear to auscultation bilaterally, respirations unlabored Chest Wall: No tenderness or deformity Heart: Regular rate and rhythm, S1 and S2 normal, no murmur, rub or gallop Abdomen: Soft, there is exquisite tenderness to palpation left flank from perineum. Extremities: Extremities normal, atraumatic, no cyanosis or edema Pulses: 2+ and symmetric all extremities Skin: Skin color, texture, turgor normal, no rashes or lesions Lymph nodes: Cervical, supraclavicular, and axillary nodes normal Neurologic: Alert and oriented to time, place and person. CNII-XII intact, normal strengt h, sensation and reflexes throughout. No focal neurological deficits Venous access: : PIV No signs of infection. Left labial induration, tracking up the left inguinal area. LABS: All labs reviewed. CBC: Lab Results Component Value Date WBC 17.9* 02/28/2014 RBC 3.38* 02/28/2014 HGB 9.0* 02/28/2014 HCT 28.4* 02/28/2014 MCV 84.0 02/28/2014 MCH 26.6* 02/28/2014 MCHC 31.7* 02/28/2014 RDW 47.7 02/28/2014 PLT 323 02/28/2014 MPV 8.1 02/28/2014 DIFFTYPE MANUAL 02/28/2014 CMP: Lab Results Component Value Date NA 137 02/28/2014 K 3.4* 02/28/2014 CL 110* 02/28/2014 CO2 22* 02/28/2014 ANIONGAP 8 02/28/2014 GLUF 71 02/28/2014 BUN 11 02/28/2014 CREATININE 0.67 02/28/2014 BCR 16 02/28/2014 CA 7.7* 02/28/2014 PROT 5.3* 02/28/2014 ALB 2.2* 02/28/2014 GLOB 3.1 02/28/2014 BILITOT 0.5 02/28/2014 ALP 104 02/28/2014 AST 18 02/28/2014 ALT 12 02/28/2014 EGFR >60 02/28/2014 MICROBIOLOGY Results Procedure Component Value Units Date/Time Anaerobic Culture W/Gram Stain [[id number]] Collected: 02/25/142040 Specimen Description VULVA Updated: 02/28/14 0919 GRAM STAIN 3+ GRAM STAIN GRAM POSITIVE RODS GRAM STAIN 2+ GRAM STAIN GRAM POSITIVE COCCI GRAM STAIN 2+ GRAM STAIN WBC'S SEEN GRAM STAIN Result: REVIEW OF SMEAR BY MICROBIOLOGY SHOWS THE FOLLOWING: GRAM STAIN 3+ GRAM STAIN GRAM POSITIVE COCCI GRAM STAIN 4+ GRAM STAIN GRAM POSITIVE RODS GRAM STAIN 3+ GRAM STAIN GRAM NEGATIVE RODS GRAM STAIN 2+ GRAM STAIN WBC'S SEEN CULTURE 2+ CULTURE NORMAL GENITAL ODETTE CULTURE 1+ CULTURE MIXED ANAEROBIC ODETTE CULTURE Result: Testing performed at [facility], [address] [place] [address] C diff toxin by PCR (TAT 3 hr in house) [[id number]] Collected: 02/27/142024 Specimen Information: Stool / Stool Updated: 02/27/14 2136 Toxigenic C Difficile NEGATIVE 027 NAP1 BI 027 NAP1 BI PRESUMPTIVE NEGATIVE Wound culture [[id number]] Collected: 02/25/141834 Specimen Information: Nasopharyngeal / OTHR-w source desc (F6) Updated: 02/27/14 1430 Specimen Description OTHER CULTURE 2+ CULTURE NORMAL UROGENITAL ODETTE CULTURE Result: Testing performed at [facility], [address] [place] [id number] Blood Culture Set 1 [[id number]] Collected: 02/25/141953 Specimen Information: Blood / Blood, peripheral draw Updated: 02/27/14 0544 Specimen Description BLOOD, PERIPHERAL DRAW SPECIAL REQUESTS L HAND SPECIAL REQUESTS Result: Testing performed at [facility];[address] [place] [address];[place] [address] CULTURE NO GROWTH CULTURE Result: Testing performed at [facility], [address] [place] [address] Blood Culture Set 2 [[id number]] Collected: 02/25/141956 Specimen Information: Blood / Blood Updated: 02/27/14 0544 Specimen Description BLOOD, PERIPHERAL DRAW SPECIAL REQUESTS R HAND SPECIAL REQUESTS Result: Testing performed at [facility];[address] [place] [address];[place] [address] CULTURE NO GROWTH CULTURE Result: Testing performed at [facility], [address] [place] [address] C diff toxin by PCR (TAT 3 hr in house) [[id number]] Collected: 02/26/14 0336 Specimen Information: Stool / Stool Updated: 02/26/14 0522 Toxigenic C Difficile NEGATIVE 027 NAP1 BI 027 NAP1 BI PRESUMPTIVE NEGATIVE MRSA by PCR [[id number]] Collected: 02/25/141832 Specimen Information: Nasopharyngeal / Nares Updated: 02/25/141950 SOURCE NARES(NOSE) MRSA PCR NEGATIVE IMAGING Reviewed images of : CT scan, my interpretation: soft tissue necrotizing infection with gas tracking up from perineum to left flank. PROBLEM LIST Principal Problem: Vulvar abscess Active Problems: Sepsis(995.91) DM2 (diabetes mellitus, type 2) Renal insufficiency COPD (chronic obstructive pulmonary disease) ASSESSMENT & PLAN 58-y-o F with 1. 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 Sepsis, leukocytosis and tachycardia persist Reviewed images, worsening soft tissue involvement with gas and likely necrotizing infectio n. General surgery consultation STAT Discussed with Dr. Camara Will broaden atbx therapy again to vancomycin, meropenem and clindamycin. Please send tissue for culture including fungal culture. Ok to place PICC if IV access issues. Watson Negrete MD 02/28/2014 3:16 PM onversion Tra nsaction, Provider Unknown - 02/28/2014 1:05 PM PSTFormatting of this note might be differe nt from the original. Therapy Progress Note by Jelena Castillo PT at 02/28/14 1305 Author: Jelena Castillo PT Service: (none) Author Type: Physical Therapist Filed: 02/28/14 1327 Date of Service: 02/28/14 1305 Status: Signed Senior Consulting Manager: Jelena Castillo PT (Physical Therapist) 02/28/14 1305 PT Last Visit PT Received On 02/28/14 Reason for Treatment Other (comment) (Vulvar abscess/sepsis (deconditioning) ) Requires PT Follow Up Refused Follow up PT Only? Yes (Ongoing mobility and balance assessment ) Yard Operator Needed No Other Comments Comments Pt in bed upon PT arrival stating that she had been performing her LE bed exercise s and did not want to perform mobility assessment/training stating "I know what I can do and cannot do". Pt stated that she felt like she would be able to mobilize just fine upon d/c h ome and did not want to perform today d/t significant pain. PT to f/u with pt tomorrow for o ngoing mobility assessment. Watson Awad MD - 02/27/2014 3:13 PM PST Progress Notes by Watson Negrete MD at 02/27/14 2036 Author: Watson Negrete MD Service: Infectious Disease Author Type: Physician Filed: [id number] Date of Service: 02/27/141512 Status: Signed Senior Consulting Manager: Watson Negrete MD (Physician) [facility] Service: Infectious Diseases Progress Note Hospital Day: LOS: 2 days Post-Op Day: 2 Days Post-Op CC: f/u vulvar abscess and sepsis SUBJECTIVE/OVERNIGHT EVENTS Pain is better, afebrile today although with low grade temp. Wound examined today by Dr. Son sepulveda and re-packed. Overall improved. MEDICATIONS: aspirin 81 mg Oral Daily with breakfast calcium-vitamin D 2 tablet Oral BID clindamycin 900 mg Intravenous Q8H enoxaparin 40 mg Subcutaneous Q24H insulin aspart 0-10 Units Subcutaneous TID AC insulin aspart 0-5 Units Subcutaneous Nightly insulin aspart 10 Units Subcutaneous TID AC insulin glargine 30 Units Subcutaneous BID lactobacillus 1 packet Oral 4x Daily omeprazole 20 mg Oral QAM AC PARoxetine 20 mg Oral QAM phosphorus 500 mg Oral BID piperacillin-tazobactam 4.5 g Intravenous Once piperacillin-tazobactam 3.375 g Intravenous Q8H potassium chloride 20 mEq Oral TID WC sodium chloride 0.9 % 10 mL Intravenous Q12H SULEMAN vancomycin 1,500 mg Intravenous Q24H dextrose sodium chloride (IV) 110 mL/hr at 02/26/14 1819 PRN Medications acetaminophen, acetaminophen, dextrose, dextrose, dextrose, glucagon, glucagon, hydrALAZINE , HYDROmorphone, HYDROmorphone, lidocaine, loperamide, magnesium sulfate, magnesium sulfate, magnesium sulfate, ondansetron, ondansetron, oxyCODONE, phosphorus, [MAR Hold] polyethylene glycol, potassium chloride, potassium chloride, potassium chloride, sodium chloride 0.9 %, sodium phosphate IVPB 20 mmol, sodium phosphate IVPB 45 mmol, [MAR Hold] zolpidem PHYSICAL EXAM Vital Signs: BP 131/63 | Pulse 100 | Temp(Src) 99.8 F (37.7 C) (Oral) | Resp 16 | Ht 1.575 m (5' 2") | Wt 100.744 kg (222 lb 1.6 oz) | BMI 40.61 kg/m2 | SpO2 93% | ? No Temp (24hrs), Av.6 F (37.6 C), Min:98.1 F (36.7 C), Max:101.9 F (38.8 C) General Appearance: Alert, cooperative, no distress Head: Normocephalic, without obvious abnormality, atraumatic Eyes: PERRL, conjunctiva/corneas clear. Nose: Nares normal, septum midline, mucosa normal, no drainage or sinus tenderness Throat: Lips, mucosa, and tongue normal; teeth and gums normal Neck: Supple, symmetrical, trachea midline, no adenopathy; thyroid: no enlargement/tenderness/nodules; no carotid bruit or JVD Back: Symmetric, no curvature, ROM normal, no CVA tenderness Lungs: Clear to auscultation bilaterally, respirations unlabored Chest Wall: No tenderness or deformity Heart: Regular rate and rhythm, S1 and S2 normal, no murmur, rub or gallop Abdomen: Soft, non-tender, bowel sounds active all four quadrants, no masses, no organomegaly Extremities: Extremities normal, atraumatic, no cyanosis or edema Pulses: 2+ and symmetric all extremities Skin: Skin color, texture, turgor normal, no rashes or lesions Lymph nodes: Cervical, supraclavicular, and axillary nodes normal Neurologic: Alert and oriented to time, place and person. CNII-XII intact, normal strengt h, sensation and reflexes throughout. No focal neurological deficits : Left labia induration with decreased erythema. Packed wound. LABS: All labs reviewed. CBC: Lab Results Component Value Date WBC 17.8* 02/27/2014 RBC 3.40* 02/27/2014 HGB 8.9* 02/27/2014 HCT 27.8* 02/27/2014 MCV 82.0 02/27/2014 MCH 26.2* 02/27/2014 MCHC 31.9* 02/27/2014 RDW 47.3 02/27/2014 PLT 296 02/27/2014 MPV 7.7 02/27/2014 DIFFTYPE MANUAL 02/27/2014 CMP: Lab Results Component Value Date NA 140 02/27/2014 K 3.3* 02/27/2014 CL 111* 02/27/2014 CO2 21* 02/27/2014 ANIONGAP 12 02/27/2014 GLUF 139* 02/27/2014 BUN 20 02/27/2014 CREATININE 0.82 02/27/2014 BCR 25 02/27/2014 CA 7.5* 02/27/2014 PROT 5.6* 02/27/2014 ALB 1.7* 02/27/2014 GLOB 3.9 02/27/2014 BILITOT 0.6 02/27/2014 ALP 118* 02/27/2014 AST 25 02/27/2014 ALT 11 02/27/2014 EGFR >60 02/27/2014 MICROBIOLOGY Results Procedure Component Value Units Date/Time Anaerobic Culture W/Gram Stain [[id number]] Collected: 02/25/14 204 Specimen Description VULVA Updated: 02/27/14 1444 GRAM STAIN 3+ GRAM STAIN GRAM POSITIVE RODS GRAM STAIN 2+ GRAM STAIN GRAM POSITIVE COCCI GRAM STAIN 2+ GRAM STAIN WBC'S SEEN GRAM STAIN Result: REVIEW OF SMEAR BY MICROBIOLOGY SHOWS THE FOLLOWING: GRAM STAIN 3+ GRAM STAIN GRAM POSITIVE COCCI GRAM STAIN 4+ GRAM STAIN GRAM POSITIVE RODS GRAM STAIN 3+ GRAM STAIN GRAM NEGATIVE RODS GRAM STAIN 2+ GRAM STAIN WBC'S SEEN CULTURE 2+ CULTURE NORMAL GENITAL ODETTE CULTURE Result: [place] [address] Wound culture [[id number]] Collected: 02/25/14 183 Specimen Information: Nasopharyngeal / OTHR-w source desc (F6) Updated: 02/27/14 1430 Specimen Description OTHER CULTURE 2+ CULTURE NORMAL UROGENITAL ODETTE CULTURE Result: Testing performed at [address] [address] Blood Culture Set 1 [[id number]] Collected: 02/25/141953 Specimen Information: Blood / Blood, peripheral draw Updated: 02/27/14 0544 Specimen Description BLOOD, PERIPHERAL DRAW SPECIAL REQUESTS L HAND SPECIAL REQUESTS Result: Testing performed at [facility];[address] [place] [address] CULTURE NO GROWTH CULTURE Result: Testing performed at [facility], [address] [place] [address] Blood Culture Set 2 [[id number]] Collected: 02/25/141956 Specimen Information: Blood / Blood Updated: 02/27/1444 Specimen Description BLOOD, PERIPHERAL DRAW SPECIAL REQUESTS R HAND SPECIAL REQUESTS Result: Testing performed at [facility];[address] [facility];[place] [address] CULTURE NO GROWTH CULTURE Result: Testing performed at [facility], [address] [place] [address] C diff toxin by PCR (TAT 3 hr in house) [[id number]] Collected: 02/26/14 0336 Specimen Information: Stool / Stool Updated: 02/26/14 0522 Toxigenic C Difficile NEGATIVE 027 NAP1 BI 027 NAP1 BI PRESUMPTIVE NEGATIVE MRSA by PCR [[id number]] Collected: 02/25/14 1833 Specimen Information: Nasopharyngeal / Nares Updated: 02/25/14 1951 SOURCE NARES(NOSE) MRSA PCR NEGATIVE IMAGING Reviewed images of: no new images for review. PROBLEM LIST Principal Problem: Vulvar abscess Active Problems: Sepsis(995.91) DM2 (diabetes mellitus, type 2) Renal insufficiency COPD (chronic obstructive pulmonary disease) ASSESSMENT & PLAN 58-y-o F 1. Vulvar abscess 2. Cellulitis perineum 3. Sepsis Cultures with normal genital odette. No evidence of MRSA, MSSA, pseudomonas. Will change therapy to Unasyn and Clindamycin. Cont to monitor. Overall improved with decreased leukocytosis, improvement in fever curve a nd resolving tachycardia. Will re-assess tomorrow. Would continue iv atbx for another 24-48 h, then may be switched t o oral. Watson Negrete MD 02/27/2014 3:13 PM onversion Tra nsaction, Provider Unknown - 02/27/2014 3:00 PM PSTFormatting of this note might be differe nt from the original. Therapy Progress Note by Jesenia Smith PT at 02/27/14 1500 Author: Jesenia Smith PT Service: (none) Author Type: Physical Therapist Filed: 02/27/14 1604 Date of Service: 02/27/14 1500 Status: Signed Senior Consulting Manager: Jesenia Smith PT (Physical Therapist) 02/27/14 1500 PT Last Visit PT Received On 02/27/14 Reason for Treatment Other (comment) (Vulvar abscess/sepsis (deconditioning) ) Requires PT Follow Up Yes Follow up PT Only? Yes (continued mobility assessment ) PT Eval/Reassessment Date 02/27/14 Assistance Required 1 person (possible 2 person for mobility ) Yard Operator Needed No Precautions Other Precautions Fall risk Plan Treatment/Interventions Balance training;Bed mobility training;Family training;Gait trainin g;Provide HEP;Review HEP;Therapeutic exercise;Transfer training PT Frequency 5-7x/wk;Once per day Care Duration (# of days) 7 # of days Home Environment Type of Home Home one story Home Exterior Layout Entry steps none Home Interior Layout Lives on main level with bedroom/bathroom Bathroom Shower/Tub Shower unit with threshold Bathroom Toilet Standard Bathroom Equipment Shower chair Bathroom Accessibility Accessible via walker Home Equipment None Recommendation Recommendations Continue acute care therapy (TBD ) Equipment Recommended Walker front wheeled Prior Function Level of [place] Independent with functional mobility;Independent with ADLs;Independe nt with IADLs Lives With Spouse;School-aged child(radha) Receives Help From Family ADL Assistance Independent Home ADL's Independent RUE Assessment RUE Assessment WFL LUE Assessment LUE Assessment WFL RLE Assessment RLE Assessment X (3/5 ) LLE Assessment LLE Assessment X (3/5 ) Cognition Overall Cognitive Status WFL Orientation Level Oriented Sensation Light Touch Deficit apparent (Pt c/o tingling in bilateral feet ) Assessment of Patient Status Assessment of Patient Status Decreased LE strength;Decreased functional mobility;Decreased ADL status;Decreased endurance;Precautions;Pain Prognosis Should progress with skilled therapy intervention 02/27/14 1500 PT Last Visit PT Received On 02/27/14 Reason for Treatment Other (comment) (Vulvar abscess/sepsis (deconditioning) ) Requires PT Follow Up Yes Follow up PT Only? Yes (continued mobility assessment ) PT Eval/Reassessment Date 02/27/14 Assistance Required 1 person (possible 2 person for mobility ) Yard Operator Needed No Precautions Other Precautions Fall risk Other Comments Comments Eval/chart review performed in room, pt s/p Vulvar abscess/sepsis, LE strength 3/5 due to pain, pt only able to tolerate rolling during session due to pain. Bed ther ex perfo rmed. pt had loss of bowels during rolling, pt supine in bed @ end of session. Cognition Overall Cognitive Status WFL Orientation Level Oriented Bed Mobility Rolling Moderate assist Supine to Sit CARMEN Transfers Sit to/from Stand CARMEN Mobility Weight Bearing Status WBAT RLE;WBAT LLE Ambulation Assistance CARMEN Supine Supine-Exercise Type Heel slides;Ankle pumps Supine-Exercise Comments x 10 reps w/resistence Modalities Modalities Other therapy Other Therapy Ed on mobility techniques Activity Tolerance Activity Tolerance Patient limited by fatigue;Patient limited by pain Nurse Made Aware Rn aware Plan Treatment/Interventions Balance training;Bed mobility training;Family training;Gait trainin g;Provide HEP;Review HEP;Therapeutic exercise;Transfer training PT Frequency 5-7x/wk;Once per day Care Duration (# of days) 7 # of days Recommendation Recommendations Continue acute care therapy (TBD ) Equipment Recommended Walker front wheeled onver zafar Transaction, Provider Unknown - 02/27/2014 12:16 PM PST Progress Notes by Ashwini Ann RN at 02/27/14 1216 Author: Ashwini Ann RN Service: (none) Author Type: Registered Nurse Filed: 02/27/147 Date of Service: 02/27/146 Status: Signed Senior Consulting Manager: Ashwini Ann RN (Registered Nurse) Spoke to Dr Mancilla about picc order. Pt has pending blood cultures and temp today 100.9. Pl ease hold off for now. Will place peripherals via u/s. onver zafar Transaction, Provider Unknown - 02/27/2014 11:02 AM PST Progress Notes by Arben Valentin RPH at 02/27/14 1102 Author: Arben Valentin RPH Service: Pharmacy Author Type: Pharmacist Filed: 02/27/14 1103 Date of Service: 02/27/14 1102 Status: Signed Senior Consulting Manager: Arben Valentin RPH (Pharmacist) Vancomycin day 3, est crcl 84ml/min, awaiting trough level at 2330 02/27 Rupesh Johnson i, MD - 02/27/2014 9:04 AM PSTFormatting of this note might be different fro m the original. Progress Notes by Rupesh Camara MD at 02/27/14 09 Author: Rupesh Camara MD Service: Hospitalist Author Type: Physician Filed: 02/27/14 0906 Date of Service: 02/27/14 09 Status: Signed Senior Consulting Manager: Rupesh Camara MD (Physician) [facility] Service: Hospitalist Progress Note Hospital Day: LOS: 2 days SUBJECTIVE Patient Summary: Events Overnight: Patient is alert Ox3 Reports pain She is not asking for pain meds No CP or SOA No nausea or vomiting Still has diarrhea Scheduled Medications aspirin 81 mg Oral Daily with breakfast calcium-vitamin D 2 tablet Oral BID clindamycin 900 mg Intravenous Q8H enoxaparin 40 mg Subcutaneous Q24H insulin aspart 0-10 Units Subcutaneous TID AC insulin aspart 0-5 Units Subcutaneous Nightly insulin aspart 10 Units Subcutaneous TID AC insulin glargine 30 Units Subcutaneous BID lactobacillus 1 packet Oral 4x Daily lidocaine buffered 1% 0.5 mL Intradermal Once omeprazole 20 mg Oral QAM AC PARoxetine 20 mg Oral QAM phosphorus 500 mg Oral BID piperacillin-tazobactam 4.5 g Intravenous Once piperacillin-tazobactam 3.375 g Intravenous Q8H potassium chloride 20 mEq Oral TID WC vancomycin 1,500 mg Intravenous Q24H Continuous Infusions dextrose sodium chloride (IV) 110 mL/hr at 02/26/14 1819 PRN Medications acetaminophen, acetaminophen, dextrose, dextrose, dextrose, glucagon, glucagon, hydrALAZINE , HYDROmorphone, HYDROmorphone, magnesium sulfate, magnesium sulfate, magnesium sulfate, ond ansetron, ondansetron, oxyCODONE, phosphorus, [MAR Hold] polyethylene glycol, potassium chlo ride, potassium chloride, potassium chloride, sodium phosphate IVPB 20 mmol, sodium phosphat e IVPB 45 mmol, [MAR Hold] zolpidem OBJECTIVE Vital Signs: BP 131/64 | Pulse 97 | Temp(Src) 100.2 F (37.9 C) (Oral) | Resp 16 | Ht 1.575 m (5' 2") | Wt 100.744 kg (222 lb 1.6 oz) | BMI 40.61 kg/m2 | SpO2 95% | ? No Physical Exam General Appearance: Alert, cooperative, no distress, appears stated age Lungs: Clear to auscultation bilaterally, respirations unlabored Heart: Regular rate and rhythm, S1 and S2 normal, no murmur, rub or gallop Abdomen: Soft, non-tender, bowel sounds active all four quadrants, no masses, no organomegaly Extremities: Extremities normal, atraumatic, no cyanosis or edema Pulses: 2+ and symmetric all extremities Neurologic: CNII-XII intact, normal strength, sensation and reflexes throughout Groin exam deferred DATA Recent Labs Lab 02/27/14 0625 02/26/14 0621 02/25/14 1840 WBC 17.8* 23.0* 26.6* HGB 8.9* 9.0* 9.9* HCT 27.8* 29.1* 31.9* PLT 296 279 311 Recent Labs Lab 02/27/14 0625 02/26/14 1612 02/26/14 0630 02/25/14 1840 NA 140 -- 138 -- 137 K 3.3* 3.3* 3.1* < > 3.6 CL 111* -- 109 -- 108 CO2 21* -- 21* -- 21* BUN 20 -- 33* -- 35* CREATININE 0.82 -- 1.11* -- 1.23* PROT 5.6* -- -- -- 6.4 BILITOT 0.6 -- -- -- 0.7 ALT 11 -- -- -- 10 AST 25 -- -- -- 17 < > = values in this interval not displayed. Phosphorus: Lab Results Component Value Date PHOS 1.6* 02/27/2014 No components found with this basename: LABALBU, Recent Labs Lab 02/27/14 0625 02/26/14 0630 MG 2.2 2.0 No results found for this basename: AMYLASE, in the last 168 hours No results found for this basename: PHART, PO2ART, LUL7OXG, T9NMWDHO, BEART, in the last 1 68 hours No results found for this basename: APTT, INR, PTT, in the last 168 hours No results found for this basename: TSH, T3FREE, FREET4, in the last 168 hours No results found for this basename: CKTOTAL, TROPONINI, TROPONINT, CKMBINDEX, in the last 168 hours Radiology No results found. PROBLEM LIST Principal Problem: Vulvar abscess Active Problems: Sepsis(995.91) DM2 (diabetes mellitus, type 2) Renal insufficiency COPD (chronic obstructive pulmonary disease) Resolved Problems: * No resolved hospital problems. * ASSESSMENT & PLAN 1. Sepsis secondary to valvular abscess, status post I and D. The culture is polymicrobial Continue broad-spectrum antibiotics, awaiting culture identification and susceptibility. Sep sis is improved. White count is trending down.Appreciate ID consult 2. Diabetes. Blood sugar is actually very well controlled. Continue Lantus sliding scale. C heck hemoglobin A1C. 3. Hypokalemia. Replace potassium. 4. DVT prophylaxis. Lovenox. 5. Acute kidney injury, Resolved. Hold olmesartan for now as the blood pressure is still on the lower side. 6. Antibiotic-associated diarrhea. Clostridium difficile negative.Cont Lactinex.prn immodiu m 7. Depression. Continue Paxil. We will streamline the antibiotics once the culture results are back. Picc line as patient is a difficult iv access Code Status: Full Code Rupesh Camara MD 02/27/2014 9:04 AM Christ Ovalle MD - 02/27/2014 6:59 AM PSTFormatting of this note might be different from the origi nal. Progress Notes by Presley Kat MD at 02/27/14 0659 Author: Presley Kat MD Service: (none) Author Type: Physician Filed: 02/28/14 0709 Date of Service: 02/27/1459 Status: Signed Senior Consulting Manager: Presley aKt MD (Physician) [facility] Service: Obstetrics & Gynecology Progress Note Hospital Day: LOS: 2 days Post-Op Day: 2 Days Post-Op SUBJECTIVE Patient Summary: Events Overnight: Has had less fever, but still with spikes. Her vulva is improving, less tender, but her left side, up into the left abdomen is more tener, and she indicates t hat this is what is making getting out of bed difficult. Taking po. Still with cath in at the time of my visit. Scheduled Medications ampicillin-sulbactam 3 g Intravenous Q6H aspirin 81 mg Oral Daily with breakfast calcium-vitamin D 2 tablet Oral BID clindamycin 900 mg Intravenous Q8H enoxaparin 40 mg Subcutaneous Q24H insulin aspart 0-10 Units Subcutaneous TID AC insulin aspart 0-5 Units Subcutaneous Nightly insulin aspart 10 Units Subcutaneous TID AC insulin glargine 30 Units Subcutaneous BID lactobacillus 1 packet Oral 4x Daily omeprazole 20 mg Oral QAM AC PARoxetine 20 mg Oral QAM phosphorus 500 mg Oral BID potassium chloride 20 mEq Oral TID WC sodium chloride 0.9 % 10 mL Intravenous Q12H SULEMAN Continuous Infusions dextrose sodium chloride (IV) 110 mL/hr at 02/26/14 1819 PRN Medications acetaminophen, acetaminophen, dextrose, dextrose, dextrose, glucagon, glucagon, hydrALAZINE , HYDROmorphone, HYDROmorphone, lidocaine, loperamide, magnesium sulfate, magnesium sulfate, magnesium sulfate, ondansetron, ondansetron, oxyCODONE, phosphorus, [MAR Hold] polyethylene glycol, potassium chloride, potassium chloride, potassium chloride, sodium chloride 0.9 %, sodium phosphate IVPB 20 mmol, sodium phosphate IVPB 45 mmol, [MAR Hold] zolpidem OBJECTIVE Vital Signs: BP 98/55 | Pulse 82 | Temp(Src) 98.7 F (37.1 C) (Oral) | Resp 16 | Ht 1.575 m (5' 2") | Wt 101.923 kg (224 lb 11.2 oz) | BMI 41.09 kg/m2 | SpO2 97% | ? No Her T max over night the 2nd was just under 101 degrees General appearance: alert, appears stated age, cooperative and fatigued Abdomen: On her left side, the same side as the vulvar abscess there is erythema and warmth in a fairly large area . This is tender to palpation. No fluctuance. Suggestive of cellu litis. Pelvic: The left labia, vulva with some packing remaining, removed today and the would is t o be repacked by wound care nurse who is at the bedside with me. Less induration, and less t josh. DATA CBC: Lab Results Component Value Date WBC 17.8* 02/27/2014 RBC 3.40* 02/27/2014 HGB 8.9* 02/27/2014 HCT 27.8* 02/27/2014 MCV 82.0 02/27/2014 MCH 26.2* 02/27/2014 MCHC 31.9* 02/27/2014 RDW 47.3 02/27/2014 PLT 296 02/27/2014 MPV 7.7 02/27/2014 DIFFTYPE MANUAL 02/27/2014 PROBLEM LIST Principal Problem: Vulvar abscess Active Problems: Sepsis(995.91) DM2 (diabetes mellitus, type 2) Renal insufficiency COPD (chronic obstructive pulmonary disease) ASSESSMENT & PLAN Wound care to repack wound after I removed the remainder of the packing remaining from the original surgery. The wound care nurse will also discuss with the hospitalist or ID provide r the possibility of doing a CT for the left sided erythema etc., which possibly represents an extension of the vulvar infection. Continue present abx Hospitalist is managing her DM etc. Disposition: Code Status: Full Code PRESLEY KAT MD 02/28/2014 onversion Transa ction, Provider Unknown - 02/26/2014 12:56 PM PST Progress Notes by Arben Valentin RPH at 02/26/14 1256 Author: Arben Valentin RPH Service: Pharmacy Author Type: Pharmacist Filed: 02/26/14 1256 Date of Service: 02/26/14 1256 Status: Signed Senior Consulting Manager: Arben Valentin RPH (Pharmacist) Vancomycin day 2, est crcl 61.5ml/min, awaiting trough level at 2330 02/27 izemo rePresley MD - 02/26/2014 9:52 AM PSTFormatting of this note might be different from th e original. Progress Notes by Presley Kat MD at 02/26/14 0952 Author: Presley Kat MD Service: (none) Author Type: Physician Filed: 02/26/14 456 Date of Service: 02/26/14 0952 Status: Addendum Senior Consulting Manager: Presley Kat MD (Physician) Related Notes: Original Note by Presley Kat MD (Physician) filed at 02/26/14 3278 [facility] Service: Obstetrics & Gynecology Progress Note Hospital Day: LOS: 1 day Post-Op Day: 1 Day Post-Op SUBJECTIVE Patient Summary: Events Overnight: Underwent I&D last night with packing of the left vulvar abscess ca vity. A Mikel drain was also left in place. She has basically defervesced. White count is trending down. She feels much improved with pain controlled. Diabetes management is goo d, please see hospitalist note. She us still having moderate pain, especially with movement/ ambulation. Scheduled Medications aspirin 81 mg Oral Daily with breakfast calcium-vitamin D 2 tablet Oral BID clindamycin 900 mg Intravenous Q8H enoxaparin 40 mg Subcutaneous Q24H insulin aspart 0-10 Units Subcutaneous TID AC insulin aspart 0-5 Units Subcutaneous Nightly insulin aspart 10 Units Subcutaneous TID AC insulin glargine 30 Units Subcutaneous BID lactobacillus 1 packet Oral 4x Daily lidocaine buffered 1% 0.5 mL Intradermal Once omeprazole 20 mg Oral QAM AC PARoxetine 20 mg Oral QAM piperacillin-tazobactam 4.5 g Intravenous Once piperacillin-tazobactam 3.375 g Intravenous Q8H vancomycin 1,500 mg Intravenous Q24H Continuous Infusions dextrose sodium chloride (IV) Stopped (02/25/142002) PRN Medications acetaminophen, acetaminophen, dextrose, dextrose, dextrose, glucagon, glucagon, hydrALAZINE , HYDROmorphone, HYDROmorphone, magnesium sulfate, magnesium sulfate, magnesium sulfate, ond ansetron, ondansetron, phosphorus, [MAR HOLD] polyethylene glycol, potassium chloride, potas sium chloride, potassium chloride, sodium phosphate IVPB 20 mmol, sodium phosphate IVPB 45 m mol, [MAR HOLD] zolpidem OBJECTIVE Vital Signs: BP 115/55 | Pulse 103 | Temp(Src) 99.3 F (37.4 C) (Oral) | Resp 24 | Ht 1.575 m (5' 2") | Wt 99.111 kg (218 lb 8 oz) | BMI 39.95 kg/m2 | SpO2 97% | ? No Temp: [98.6 F (37 C)-103.3 F (39.6 C)] 99.3 F (37.4 C) (02/26 723) BP: (84-115)/(42-57) 115/55 mmHg (02/26 723) Heart Rate: [103-126] 103 (02/26 723) Resp: [14-25] 24 (02/26 723) SpO2: [89 %-100 %] 97 % (02/26 723) Height: [157.5 cm (5' 2")] 157.5 cm (5' 2") (02/25 1900) Weight: [95.709 kg (211 lb)-99.111 kg (218 lb 8 oz)] 99.111 kg (218 lb 8 oz) (02/26 318) BMI (Calculated): [38.7] 38.7 (02/25 1900) FiO2 : [48 %-95 %] 95 % (02/25 2110) Please see hospitalist note. Left vulva is packed with Taylor in place. Decreased tender ness, minimal drainage. About 1/4 of the packing was carefully pulled for the wound, and cut, with some improvement in her subjective symptoms. DATA CBC: Lab Results Component Value Date WBC 23.0* 02/26/2014 RBC 3.47* 02/26/2014 HGB 9.0* 02/26/2014 HCT 29.1* 02/26/2014 MCV 83.7 02/26/2014 MCH 26.0* 02/26/2014 MCHC 31.1* 02/26/2014 RDW 46.8 02/26/2014 PLT 279 02/26/2014 MPV 7.9 02/26/2014 DIFFTYPE MANUAL 02/26/2014 CMP: Lab Results Component Value Date NA 138 02/26/2014 K 3.1* 02/26/2014 CL 109 02/26/2014 CO2 21* 02/26/2014 ANIONGAP 11 02/26/2014 GLUF 91 02/26/2014 BUN 33* 02/26/2014 CREATININE 1.11* 02/26/2014 BCR 30 02/26/2014 CA 7.0* 02/26/2014 PROT 6.4 02/25/2014 ALB 2.8* 02/25/2014 GLOB 3.6 02/25/2014 BILITOT 0.7 02/25/2014 ALP 116* 02/25/2014 AST 17 02/25/2014 ALT 10 02/25/2014 EGFR 54* 02/26/2014 PROBLEM LIST Principal Problem: Vulvar abscess Active Problems: Sepsis(995.91) DM2 (diabetes mellitus, type 2) Renal insufficiency COPD (chronic obstructive pulmonary disease) ASSESSMENT & PLAN Vulvar abscess. Diabetes. Hypertension. COPD. Disposition: Continue present care, will modify antibiotics based on culture results. Hos pitalist will continue to follow for medical issues. 1 or so of the wound packing was removed today. Code Status: Full Code PRESLEY KAT MD 02/26/2014 Addendum to today's Note: 18:45 Fever to 102 degrees this afternoon. Pain is slowly improving, but still not able to ambul ate well enough to have the vazquez removed. On exam the induration and tenderness are still about the same. An additional 2 feet of packing removed. Tolerated pretty well. No other changes for now. onversion Transa ction, Provider Unknown - 02/26/2014 8:30 AM PST Case Management by AMY Bryson at 02/26/14829 Author: AMY Bryson Service: (none) Author Type: Professor Of French Filed: 02/26/14830 Date of Service: 02/26/14829 Status: Signed Senior Consulting Manager: AMY Bryson (Professor Of French) CM met with pt for discharge planning. Pt is 58 years old and lives with her who wi ll assist her at home. Pt does not use Durable Medical Equipment at home. Pt is usually able to perform daily living activities including personal hygiene, grooming, dressing, feeding, ambulation and bowel and bladder control. Pt currently has no resource concerns. CM will co jacqueline to follow as needed. Discharge Plan: Home. Dell Jackson CONSUELO 02/26/14829 Discharge Planning Evaluation Admitting Diagnosis Left vulvar abscess Readmission No Living Arrangements Spouse/significant other Support Systems Spouse/significant other Type of Residence Private residence Bathrooms on 1st Floor 1-Full Caregiver after Discharge Yes Relationship to Patient spouse Mental Status Oriented Anticipated Discharge Plan Post Acute Care Needs None at this time Resources Financial concerns No Transportation issues No Patient/Family concerns No Anticipated Disposition Facility Type Home Met with: Patient and discussed discharge planning, Pt is a 58 y.o., female Patient's PCP is: Jean Carlos Crowell Patient's insurance: Medicaid Coverage concerns: None Medication coverage/concerns: None Community resources utilized / needed: None Assistance in transportation: Not needed. Identification of any specific education / training: None Barriers to Discharge / Alternative housing needed: None Anticipated DCP: Home Rupesh Johnson i, MD - 02/26/2014 8:17 AM PSTFormatting of this note might be different fro m the original. Progress Notes by Rupesh Camara MD at 02/26/14816 Author: Rupesh Camara MD Service: Hospitalist Author Type: Physician Filed: 02/26/1457 Date of Service: 02/26/14816 Status: Signed Senior Consulting Manager: Rupesh Camara MD (Physician) Related Notes: Original Note by Rupesh Camara MD (Physician) filed at 02/26/14820 [facility] Service: Hospitalist Progress Note Hospital Day: LOS: 1 day SUBJECTIVE Patient Summary: Events Overnight: Patient is sleepy but opens eyes and answers question appropriately Reports pain well controlled No nausea or vomiting Scheduled Medications aspirin 81 mg Oral Daily with breakfast calcium-vitamin D 2 tablet Oral BID clindamycin 900 mg Intravenous Q8H enoxaparin 40 mg Subcutaneous Q24H insulin aspart 0-10 Units Subcutaneous TID AC insulin aspart 0-5 Units Subcutaneous Nightly insulin aspart 10 Units Subcutaneous TID AC insulin glargine 30 Units Subcutaneous BID lactobacillus 1 packet Oral 4x Daily lidocaine buffered 1% 0.5 mL Intradermal Once omeprazole 20 mg Oral QAM AC PARoxetine 20 mg Oral QAM piperacillin-tazobactam 4.5 g Intravenous Once piperacillin-tazobactam 3.375 g Intravenous Q8H vancomycin 1,500 mg Intravenous Q24H Continuous Infusions dextrose sodium chloride (IV) Stopped (02/25/142002) PRN Medications acetaminophen, acetaminophen, dextrose, dextrose, dextrose, glucagon, glucagon, hydrALAZINE , HYDROmorphone, HYDROmorphone, magnesium sulfate, magnesium sulfate, magnesium sulfate, ond ansetron, ondansetron, phosphorus, [MAR HOLD] polyethylene glycol, potassium chloride, potas sium chloride, potassium chloride, sodium phosphate IVPB 20 mmol, sodium phosphate IVPB 45 m mol, [MAR HOLD] zolpidem OBJECTIVE Vital Signs: BP 115/55 | Pulse 103 | Temp(Src) 99.3 F (37.4 C) (Oral) | Resp 24 | Ht 1.575 m (5' 2") | Wt 99.111 kg (218 lb 8 oz) | BMI 39.95 kg/m2 | SpO2 97% | ? No Physical Exam General Appearance: Alert, cooperative, no distress, appears stated age Lungs: Clear to auscultation bilaterally, respirations unlabored Heart: Regular rate and rhythm, S1 and S2 normal, no murmur, rub or gallop Abdomen: Soft, non-tender, bowel sounds active all four quadrants, no masses, no organomegaly Extremities: Extremities normal, atraumatic, no cyanosis or edema Pulses: 2+ and symmetric all extremities Neurologic: CNII-XII intact, normal strength, sensation and reflexes throughout Groin exam deferred DATA Recent Labs Lab 02/26/14 0621 02/25/14 1840 WBC 23.0* 26.6* HGB 9.0* 9.9* HCT 29.1* 31.9* PLT 279 311 Recent Labs Lab 02/26/14 0630 02/25/14 1840 NA 138 137 K 3.1* 3.6 CL 109 108 CO2 21* 21* BUN 33* 35* CREATININE 1.11* 1.23* PROT -- 6.4 BILITOT -- 0.7 ALT -- 10 AST -- 17 Phosphorus: Lab Results Component Value Date PHOS 3.0 02/26/2014 No components found with this basename: LABALBU, Recent Labs Lab 02/26/14 0630 MG 2.0 No results found for this basename: AMYLASE, in the last 168 hours No results found for this basename: PHART, PO2ART, DKN7USP, Z6VSCAZP, BEART, in the last 1 68 hours No results found for this basename: APTT, INR, PTT, in the last 168 hours No results found for this basename: TSH, T3FREE, FREET4, in the last 168 hours No results found for this basename: CKTOTAL, TROPONINI, TROPONINT, CKMBINDEX, in the last 168 hours Radiology No results found. PROBLEM LIST Principal Problem: Vulvar abscess Active Problems: Sepsis(995.91) DM2 (diabetes mellitus, type 2) Renal insufficiency COPD (chronic obstructive pulmonary disease) Resolved Problems: * No resolved hospital problems. * ASSESSMENT & PLAN 1. Sepsis secondary to valvular abscess, status post I and D. The cultures are growing gram -positive rods and gram-positive cocci. Continue broad-spectrum antibiotics, awaiting cultur e identification and susceptibility. Sepsis is improved. White count is trending down. 2. Diabetes. Blood sugar is actually very well controlled. Continue Lantus sliding scale. C heck hemoglobin A1C. 3. Hypokalemia. Replace potassium. 4. DVT prophylaxis. Add Lovenox. 5. Acute kidney injury, improved. Hold olmesartan for now as the blood pressure is still on the lower side. 6. Antibiotic-associated diarrhea. Clostridium difficile negative. Start Lactinex. 7. Depression. Continue Paxil. We will streamline the antibiotics once the culture results are back. Code Status: Full Code Rupesh Camara MD 02/26/2014 8:17 AM onversion Tr ansaction, Provider Unknown - 02/26/2014 3:39 AM PSTFormatting of this note might be differ ent from the original. Nurse Progress Note by Nirmala Quintana RN at 02/26/14 0339 Author: Nirmala Quintana RN Service: (none) Author Type: Registered Nurse Filed: 02/26/14 0340 Date of Service: 02/26/14 0339 Status: Signed Senior Consulting Manager: Nirmala Quintana RN (Registered Nurse) Loose liquid stool noted when changing patient. Per protocol, sample sent down to check for C-Diff, and precautions place until ruled out. Nirmala Quintana RN 02/26/14 @ 0340 onver zafar Transaction, Provider Unknown - 02/25/2014 8:11 PM PST Progress Notes by Harry Briones RPH at 02/25/142010 Author: Harry Briones RPH Service: (none) Author Type: Pharmacist Filed: 02/25/142010 Date of Service: 02/25/142010 Status: Signed Senior Consulting Manager: Harry Briones RPH (Pharmacist) Day 1 vanco- No labs avail. Labs from [facility]- Scr = 1.34. Pt got vanco 1500mg IV time s one dose 02/25 at 1230 in [facility] ER. Will continue vanco 1500mg IV q24h with trough pr ior to 4th dose. Indication is abscess. Goal trough is 10-20. CrCl = 50. Pharmacy is dos ing onver zafar Transaction, Provider Unknown - 02/25/2014 8:06 PM PST Progress Notes by Harry Briones RPH at 02/25/142005 Author: Harry Briones RPH Service: (none) Author Type: Pharmacist Filed: 02/25/142005 Date of Service: 02/25/142005 Status: Signed Senior Consulting Manager: Harry Briones RPH (Pharmacist) Based on Scr in [facility]- 1.34- CrCl = 50 No meds need renal dosing at this time. onver zafar Transaction, Provider Unknown - 02/25/2014 7:54 PM PST Nurse Progress Note by Nirmala Quintana RN at 02/25/141953 Author: Nirmala Quintana RN Service: (none) Author Type: Registered Nurse Filed: 02/25/141954 Date of Service: 02/25/141953 Status: Signed Senior Consulting Manager: Nirmala Quintana RN (Registered Nurse) Patient temp 103.3 upon shift change, with assistance of day RN Haylie, we provided Rectal T ylenol. Patient now tachy in 130's -140's, cont. Tele ordered. Dr. Kat and OR staff on floor now to take patient to OR. Nirmala Quintana RN 02/25/14 @ 1954 docume nted in this encounter H&P Notes Presley Kat MD - 02/25/2014 7:08 PM PST H&P by Presley Kat MD at 02/25/141907 Author: Presley Kat MD Service: (none) Author Type: Physician Filed: 02/25/141934 Date of Service: 02/25/141907 Status: Signed Senior Consulting Manager: Presley Kat MD (Physician) Subjective: Subjective Ana Rosa Wright is a 58 y.o. female who is transferred from [place] with a left vulvar abscess. Hx of insulin requiring diabetes, hypertension, chronic lung disease, and renal compromise. On arrival she is obtunded from the IV dilaudid she was given during herrera sport, so is not a good historian at the present time. The symptoms began several days ago, and have gotten progressively worse, left vulvar pain and swelling. Presented to the clini c today, was sent to the hospital, and now is transferred here for management. She has, by history, had no fever or chills. She was given IV Zosyn, Clinda and Vanco just prior to transfer. No significant drainage. CT done there revealed edema, fluid collectio n, no apparent matured abscess. Some air was noted as well. The following portions of the patient's history were reviewed and updated as appropriate: She has a past medical history of Diabetes mellitus, type 2; Hypertension; and COPD (chron ic obstructive pulmonary disease). She does not have any pertinent problems on file. She has a hx of section x 3, abdominal hysterectomy, abdominal hernia repair, cho lecystectomy, orthopedic surgery. Her family history significant for DM She reports that she has been smoking. She does not have any smokeless tobacco history on file. She reports that she does not drink alcohol. Her drug history is not on file. She Prior to transfer she was given Vancomycin, Zosyn and Clindamycin No current outpatient prescriptions on file prior to encounter. micrdis aspart (novalog) Asa Metformin omeprozole Calcium paxil victoza (insulin) Lantis Hydrocodone She is allergic to levaquin; fosamax; and ibuprofen.. Review of Systems Pertinent items are noted in HPI. Objective: Objective Ht 1.575 m (5' 2") | Wt 95.709 kg (211 lb) | BMI 38.58 kg/m2 | ? No General: appears older than stated age, fatigued and moderate distress Skin: normal and no rash or abnormalities Eyes: negative Mouth: MMM no lesions Lymph Nodes: Cervical, supraclavicular, and axillary nodes normal. Lungs: decreased breath sounds bilaterally Heart: regular rate and rhythm, S1, S2 normal, no murmur, click, rub or gallop and aaa Abdomen: Firm. Large midline scar. Positive but decreased bowel sounds. CVA: absent Genitourinary: Left vulva is edematous, firm, taught, tender to palpation with an erosion o n the inferior (posterior) edge, with slight drainage. Tender to palpation. Extremities: venous stasis dermatitis noted Neurologic: coud not do secondary to dilaudid given in transport Psychiatric: could not assess Assessment: Assessment Left vulvar abscess, now febrile with mild tachy Multiple medical issues including diabetes, HTN, COPD. Surgical hx as noted. Plan: Plan 1. Discussed the risk of surgery including Nature of the procedure(s), risks to includ e, but not limited to, bleeding, transfusion risks, infection, injury to other organs or st ructures requiring further surgery, either at the time of this procedure or a future date, f or repair or removal of injured structure, failure to relieve symptoms, anesthesia risks wer e all discussed and explained. She voices understanding and wishes to proceed. , and the risks of general anesthetic including HI, CVA, sudden or even reaction to anesthetic medications. The patient understands the risks, any and all questions were answer ed to the patient's satisfaction. 2. Hospitalist consult. ID consult if needed. May need more intense management. 3. Follow up: will arrange later. Date of Surgery Update (To be completed by Attending Surgeon day of surgery.) There have been no significant clinical changes since the completion of the above H&P. documented in thi s encounter Consult Notes Conversion Transaction, Provider Unknown - 03/04/2014 10:28 AM PSTFormatting of this note m ight be different from the original. Consults by Esther Oakley RN at 03/04/14 1028 Author: Esther Oakley RN Service: Wound/Ostomy Care Author Type: Registered Nurse Filed: 03/04/14 1030 Date of Service: 03/04/14 1028 Status: Signed Senior Consulting Manager: Esther Oakley RN (Registered Nurse) Consult Orders: 1. Wound Care Evaluation and Treat [[id number]] ordered by Neo Loyola MD at 02/28/14 7479 Pt is going to OR today with Dr. Loyola for VAC change. Wound care will put pt on schedule or a VAC change on Tuesday. If instill vac is applied, please call wound care [facility]. Esther Oakley RN 03/04/2014 10:30 AM onver zafar Transaction, Provider Unknown - 03/01/2014 10:06 AM PST Consult* by Sarita Mcgill RN at 03/01/14 1006 Author: Sarita Mcgill RN Service: Wound/Ostomy Care Author Type: Registered Nurse Filed: 03/01/14 1019 Date of Service: 03/01/14 1006 Status: Signed Senior Consulting Manager: Sarita Mcgill RN (Registered Nurse) [facility] Service: Wound Care Consult Note Hospital Day: LOS: 4 days Post-Op Day: 1 Day Post-Op Patient Summary: Pt underwent emergent I &D by Dr. Loyola last night. He placed a woun d vac from labia to left groin at 150mmhg. He is in surgery today and will call wound care w ith plans for future wound vac dressings. Wound #1: Negative Pressure Wound Therapy initiated/continued as follows: Newly initiated NPWT ?: yes Number of foam pieces removed:none. placed in OR late last night NPWT Cycle: Continuous NPWT Foam Type: placed in OR by Dr. Loyola NPWT Contact Layer:[place] NPWT Suction: Other: 150mmhg NPWT Canister Changed: no NPWT Frequency of Dressing Changes: To be discussed and arranged with Dr. Loyola and wound care. He will call us with plan Discharge plan: as progress permits PROBLEM LIST Principal Problem: Vulvar abscess Active Problems: Sepsis(995.91) DM2 (diabetes mellitus, type 2) Renal insufficiency COPD (chronic obstructive pulmonary disease) ASSESSMENT & PLAN: Recommend possible instil vac with NS. Dressing changes three time week. . Dr. Loyola will discuss with wound care nurses plan after he is done in surgery. Vac curren tly with good seal. Placed foam under and over track pad in left groin to prevent breakdown under abd fold. Pt was encouraged to change position every thirty min. As to prevent breakdo wn, as well as encouraged to adhere to Diabetic diet to aid in wound healing. Recommend Hbg A1c to evaluate BS control. (the patient was enjoying a chocolate donut when I arrived to ev aluate her wound.) visual inspection Thank you for allowing me to participate in the care of this patient. I have discussed my recommendations with the attending physician. I will continue to follow with you. Sarita Mcgill RN 10:06 AM 03/01/2014 Neo Connell MD - 02/28/2014 11:43 PM PSTFormatting of this note might be different from the janine ginal. Consult* by Neo Loyola MD at 02/28/14 5180 Author: Neo Loyola MD Service: General Surgery Author Type: Physician Filed: 03/01/14 0005 Date of Service: 02/28/14 9342 Status: Signed Senior Consulting Manager: Neo Loyola MD (Physician) [facility] Service: General Surgery Initial Consult Note Date of Admission: 02/25/2014 Reason for Consultation: Worsening soft tissue infection in spite of incision and drainage Requesting Physician: Rupesh Camara MD, Hospitalist History Obtained From: patient, chart review CHIEF COMPLAINT: Pain in the left flank. Copious drainage through perineal wound. HISTORY OF PRESENT ILLNESS The patient is a 58 y.o. female with significant past medical history of morbid obesity and diabetes who presented to [facility] with complaints of pain and swelling and drain age through the opening in the left perineum. This has been developing over the receding . No history of trauma. CT scanning was obtained which shows showed gas tracking up the left groin and the concerns are raised about a possible necrotizing fasciitis. Patient was hemodynamically stable and arrangements were made to transfer the patient to the [facility] vice under the care of Dr. Kat. Dr. Presley Rivera took the patient to the operating room on the night of her admission, two nights ago, and I indeed was made through the exist ing opening with copious drainage achieved. Postoperative day one the patient was showing s igns of improvement however there was redness and tenderness seemed to be extending up the l eft flank in spite of the I and D. White blood cell count improved and urine output remaine d excellent. Hemodynamics solid but there was still increasing pain. Today was noted the p atient's white blood cell count had stayed up approximately the same level as the previous d ay and pain complaints were increasing. It was felt that the extension of the process into the abdominal wall and left flank warranted involvement of Gen. surgery a very aggressive IV antibiotics were being administered throughout the patient's hospital stay. Cultures obtai arturo at the time of the first I and D showed mixed organisms. These are not yet available. REVIEW OF SYSTEMS Review of Systems Past Medical History Diagnosis Date Diabetes mellitus, type 2 Hypertension COPD (chronic obstructive pulmonary disease) Past Surgical History Procedure Laterality Date Incision and drainage of wound Left 02/25/2014 Procedure: INCISION & DRAINAGE; Surgeon: Presley Kat MD; Location: [facility] MAIN OR; Service: BLISTER RUST ERADICATOR; Laterality: Left; LEFT VULVAR ABSCESS Allergies Allergen Reactions Levaquin [Levofloxacin] Other (See Comments) Muscle tension Fosamax [Alendronate] Nausea Only and GI Distress Ibuprofen GI Distress Prescriptions prior to admission Medication Sig Dispense Refill aspirin 81 MG chewable tablet Take 81 mg by mouth daily with breakfast. calcium-vitamin D (OSCAL-500) 500-200 MG-UNIT per tablet Take 1 tablet by mouth 2 (two) times daily. HYDROcodone-acetaminophen (NORCO) 10-325 MG per tablet Take 1 tablet by mouth every 6 ( six) hours as needed for Pain. insulin aspart (NOVOLOG) 100 UNIT/ML injection Inject 20 Units into the skin 3 (three) times daily before meals. insulin glargine (LANTUS) 100 UNIT/ML injection Inject 80 Units into the skin 2 (two) t imes daily. leflunomide (ARAVA) 10 MG tablet Take 10 mg by mouth daily. liraglutide (VICTOZA) 18 MG/3ML injection Inject 0.6 mg into the skin daily. losartan (COZAAR) 25 MG tablet Take 25 mg by mouth daily. metFORMIN (GLUCOPHAGE) 1000 MG tablet Take 1,000 mg by mouth 2 (two) times daily with m eals. omeprazole (PRILOSEC) 20 MG capsule Take 20 mg by mouth every morning before breakfast. PARoxetine (PAXIL) 20 MG tablet Take 20 mg by mouth every morning. sulfaSALAzine (AZULFIDINE) 500 MG tablet Take 500 mg by mouth 2 (two) times daily. telmisartan (MICARDIS) 20 MG tablet Take 20 mg by mouth daily. Scheduled Medications aspirin 81 mg Oral Daily with breakfast calcium-vitamin D 2 tablet Oral BID clindamycin 900 mg Intravenous Q8H [MAY Hold] enoxaparin 40 mg Subcutaneous Q24H insulin aspart 0-10 Units Subcutaneous TID AC insulin aspart 0-5 Units Subcutaneous Nightly insulin aspart 10 Units Subcutaneous TID AC insulin glargine 30 Units Subcutaneous BID [MAY Hold] lactobacillus 1 packet Oral 4x Daily [MAY Hold] meropenem 1 g Intravenous Q8H omeprazole 20 mg Oral QAM AC PARoxetine 20 mg Oral QAM [MAY Hold] phosphorus 500 mg Oral BID [MAY Hold] sodium chloride 0.9 % 10 mL Intravenous Q12H SULEMAN [MAY Hold] vancomycin 17 mg/kg Intravenous Q12H Continuous Infusions dextrose electrolyte-A sodium chloride (IV) 110 mL/hr at 02/26/14 1819 PRN Medications acetaminophen, acetaminophen, dextrose, dextrose, dextrose, fentaNYL, fentaNYL, glucagon, g lucagon, hydrALAZINE, HYDROmorphone, HYDROmorphone, HYDROmorphone, HYDROmorphone, labetalol, [MAY Hold] lidocaine, [MAY Hold] loperamide, [MAY Hold] magnesium sulfate, [MAY Hold] magne sium sulfate, [MAY Hold] magnesium sulfate, meperidine, metoclopramide, midazolam, morphine, morphine, naloxone, ondansetron, ondansetron, ondansetron, [MAY Hold] oxyCODONE [MAY Hold] phosphorus, [MAY Hold] polyethylene glycol, [MAY Hold] potassium chloride, [MAY Hold] potassium chloride, [MAY Hold] potassium chloride, promethazine, [MAY Hold] sodium chl oride 0.9 %, [MAY Hold] sodium phosphate IVPB 20 mmol, [MAY Hold] sodium phosphate IVPB 45 m mol, [MAY Hold] zolpidem History reviewed. No pertinent family history. History Social History Marital Status: Spouse Name: N/A Number of Children: N/A Years of Education: N/A Occupational History Not on file. Social History Main Topics Smoking status: Current Every Day Smoker -- 0.50 packs/day for 30 years Smokeless tobacco: Not on file Alcohol Use: No Drug Use: Not on file Sexual Activity: Not on file Other Topics Concern Not on file Social History Narrative PHYSICAL EXAM Vital Signs: BP 96/41 | Pulse 94 | Temp(Src) 99.3 F (37.4 C) (Oral) | Resp 13 | Ht 1.575 m (5' 2") | Wt 101.923 kg (224 lb 11.2 oz) | BMI 41.09 kg/m2 | SpO2 98% | ? No Patient Vitals for the past 24 hrs: BP Temp Temp src Pulse Resp SpO2 Weight 02/28/14 2345 96/37 mmHg - - 94 14 98 % - 02/28/14 2340 96/41 mmHg - - 94 13 98 % - 02/28/14 2335 101/45 mmHg - - 94 12 98 % - 02/28/14 2330 95/40 mmHg - - 100 15 97 % - 02/28/14 2325 116/48 mmHg 99.3 F (37.4 C) Oral 100 13 97 % - 02/28/14 2320 117/55 mmHg - - 104 16 96 % - 02/28/14 2315 113/51 mmHg - - 100 15 99 % - 02/28/14 2310 128/59 mmHg - - 102 15 100 % - 02/28/14 2305 125/62 mmHg - - 104 15 100 % - 02/28/14 2300 133/57 mmHg - - 102 16 100 % - 02/28/14 2255 143/61 mmHg - - 102 19 100 % - 02/28/14 2250 132/60 mmHg - - 100 17 100 % - 02/28/14 2246 140/51 mmHg 100.4 F (38 C) Temporal 100 18 100 % - 02/28/14 1510 138/67 mmHg 98.8 F (37.1 C) Oral 88 16 97 % - 02/28/14 1104 137/63 mmHg 98.8 F (37.1 C) Oral 90 16 98 % - 02/28/14 0719 114/55 mmHg 98.3 F (36.8 C) Oral 74 16 99 % - 02/28/14 0325 98/55 mmHg 98.7 F (37.1 C) Oral 82 16 97 % 101.923 kg (224 lb 11.2 oz) 02/28/14 0027 134/61 mmHg 100.1 F (37.8 C) Oral - 20 95 % - Physical Exam Constitutional: She is oriented to person, place, and time. Vital signs are normal. She hattie ears well-developed and well-nourished. She is cooperative. Non-toxic appearance. She does not have a sickly appearance. She does not appear ill. No distress. HENT: Head: Normocephalic and atraumatic. Right Ear: External ear normal. Left Ear: External ear normal. Nose: Nose normal. Mouth/Throat: No oropharyngeal exudate. Eyes: Conjunctivae, EOM and lids are normal. Right conjunctiva is not injected. Left conjun ctiva is not injected. No scleral icterus. Neck: Trachea normal, normal range of motion, full passive range of motion without pain and phonation normal. Neck supple. No tracheal tenderness present. No edema present. No thyrome sybil present. Cardiovascular: Normal rate, regular rhythm, S1 normal, S2 normal and normal heart sounds. Exam reveals no gallop. No murmur heard. Pulmonary/Chest: No stridor. Abdominal: Soft. Normal appearance and bowel sounds are normal. She exhibits no ascites and no pulsatile midline mass. There is no tenderness. There is no rigidity, no rebound, no gua rding and no CVA tenderness. Genitourinary: Musculoskeletal: Normal range of motion. Left hip: She exhibits tenderness and swelling. Arms: Legs: Lymphadenopathy: She has no cervical adenopathy. Neurological: She is alert and oriented to person, place, and time. She has normal strength . No cranial nerve deficit or sensory deficit. Skin: Skin is warm, dry and intact. No abrasion and no rash noted. Psychiatric: She has a normal mood and affect. Her speech is normal and behavior is normal. Judgment and thought content normal. She is attentive. DATA CBC: Lab Results Component Value Date WBC 17.9* 02/28/2014 RBC 3.38* 02/28/2014 HGB 9.0* 02/28/2014 HCT 28.4* 02/28/2014 MCV 84.0 02/28/2014 MCH 26.6* 02/28/2014 MCHC 31.7* 02/28/2014 RDW 47.7 02/28/2014 PLT 323 02/28/2014 MPV 8.1 02/28/2014 DIFFTYPE MANUAL 02/28/2014 CMP: Lab Results Component Value Date NA 137 02/28/2014 K 3.4* 02/28/2014 CL 110* 02/28/2014 CO2 22* 02/28/2014 ANIONGAP 8 02/28/2014 GLUF 71 02/28/2014 BUN 11 02/28/2014 CREATININE 0.67 02/28/2014 BCR 16 02/28/2014 CA 7.7* 02/28/2014 PROT 5.3* 02/28/2014 ALB 2.2* 02/28/2014 GLOB 3.1 02/28/2014 BILITOT 0.5 02/28/2014 ALP 104 02/28/2014 AST 18 02/28/2014 ALT 12 02/28/2014 EGFR >60 02/28/2014 PT/INR: No results found for this basename: PROTIME, INR U/A: No results found for this basename: COLORU, CLARITYU, MEROPENEM, LEUKOCYTESUR, NITRITE, URO BILINOGEN, PROTEINUA, PHUR, BLOODU, KETONES, BILIRUBINUR, GLUCOSEU HgBA1c: Lab Results Component Value Date HGBA1C 7.8* 02/27/2014 LABGLYC 177 02/27/2014 Lipase: No results found for this basename: LIPASE All CT images related to this case were personally reviewed. Pertinent findings were noted . Images were reviewed with the patient and all questions were answered. PROBLEM LIST Principal Problem: Vulvar abscess Active Problems: Sepsis(995.91) DM2 (diabetes mellitus, type 2) Renal insufficiency COPD (chronic obstructive pulmonary disease) ASSESSMENT & PLAN Soft tissue abscess with inadequate drainage and debridement. Persistent cellulitis and le ukocytosis. Plan: Return to operating room for more extensive debridement and drainage and excision of infected soft tissue as needed. Code Status: Full Code Primary Care Physician: Jean Carlos Crowell Thank you for allowing me to participate in the care of this patient. I will continue to follow with you. NEO LOYOLA MD 02/28/2014 onversion Transaction , Provider Unknown - 02/27/2014 12:19 PM PST Consults by Basilia Turner RN at 02/27/14 8294 Author: Basilia Turner RN Service: Wound/Ostomy Care Author Type: Registered Nurse Filed: 02/27/14 1231 Date of Service: 02/27/14 1219 Status: Signed Senior Consulting Manager: Basilia Turner RN (Registered Nurse) Consult Orders: 1. Wound Care Evaluation and Treat [[id number]] ordered by Presley Kat MD at 02/26/14 1 141 [facility] Service: Wound Care Consult Note Hospital Day: LOS: 2 days Post-Op Day: 2 Days Post-Op SUBJECTIVE Patient Summary: Wound care consult, joint with Dr. Kat to assess vulvular absce ss. OBJECTIVE Wound #1: Classification: Surgical Wound Location:vulva Drainage Amount:Small Drainage Type:Sero-Sanguinous and brown Wound Odor After Wound is Cleaned:Mild Periwound Skin:Erythema, Induration, Callus and Tender/Painful, induration is improving Wound Size: 2 x 0.4 x 14+ cm depth that tunnels towards the mons pubis Wound Bed:Moist, [place] and Yellow Wound Exam:open and tender Wound Infection: yes PROBLEM LIST Principal Problem: Vulvar abscess Active Problems: Sepsis(995.91) DM2 (diabetes mellitus, type 2) Renal insufficiency COPD (chronic obstructive pulmonary disease) ASSESSMENT & PLAN Classification: Surgical Wound Patient premedicated with lidocaine external 4% for a 10 minute dwell as well as IV pain me dication. Dr. Kat removed mikel drain and remaining packing. Wound irrigated with s parker, gently wicked dry. Packed with aquacel AG ribbon, leaving 1" tail. Covered with vas timoteo mesh gauze and drainage captured with peripad/mesh underwear. Patient could possibly benefit from a wound vac packed with white foam, however patient now has swelling, warmth an d firmness to her left flank/side that is causing her a good deal of pain. Dr. Kat rec ommended to myself to talk to hospitalist about ordering CT scan. Spoke with Dr. Camara, a bdomen/pelvic scan ordered. Patient tolerated dressing change well. Will follow-up later t tayler on results and look into possibly placing a wound vac. Thank you for this consult. I have discussed my recommendations with the attending physician. I will continue to follow with you. Basilia Turner RN, CWON 12:20 PM 02/27/2014 Watson Awad MD - 02/26/2014 3:03 PM PST Consults by Watson Negrete MD at 02/26/14 2442 Author: Watson Negrete MD Service: Infectious Disease Author Type: Physician Filed: 02/26/14 1509 Date of Service: 02/26/14 1505 Status: Signed Senior Consulting Manager: Watson Negrete MD (Physician) [facility] Service: Infectious Diseases Initial Consult Note Date of Admission: 02/25/2014 Reason for Consultation: vulvar abscess/sepsis Requesting Physician: Presley Kat MD, Obstetrics & Gynecology REASON FOR CONSULT Vulvar abscess/sepsis CHIEF COMPLAINT Vulvar pain, fever HISTORY OF PRESENT ILLNESS The patient is a 58 y.o.-year-old female with significant PMH of diabetes presented to [facility] with high fever, chills, vulvar pain that started on last week. Developed almas ckly over a few days and progressively got worse. She was found to have an abscess with gas and fluid collection. Transferred to [facility]. She was noticed to have sepsis with significant fever, tachycardia, le ukocytosis and bandemia. Taken to OR today and an I&D was done. Infectious Disease (ID) consult requested for further evaluation and management. 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 Social History Main Topics Smoking status: Current Every Day Smoker -- 0.50 packs/day for 30 years Smokeless tobacco: Not on file Alcohol Use: No Drug Use: Not on file Sexually Active: Not on file Other Topics Concern Not on file Social History Narrative History reviewed. No pertinent family history. Current Facility-Administered Medications Medication Dose Route Frequency Provider Last Rate Last Dose acetaminophen (TYLENOL) tablet 650 mg 650 mg Oral Q6H PRN Presley Kat MD Or acetaminophen (TYLENOL) suppository 650 mg 650 mg Rectal Q6H PRN Presley Kat MD 650 mg at 02/25/14 1915 aspirin chewable tablet 81 mg 81 mg Oral Daily with breakfast Max Peralta DO 81 mg at 02/26/14 0857 calcium-vitamin D (OSCAL) 250-125 MG-UNIT per tablet 2 tablet 2 tablet Oral BID Max Peralta DO 2 tablet at 02/26/14 0858 clindamycin (CLEOCIN) IVPB 900 mg 900 mg Intravenous Q8H Presley Kat MD 900 mg at 02/26/14 1116 dextrose 10 % infusion Intravenous Continuous PRN Max Peralta, dextrose 50 % solution 12 mL 12 mL Intravenous PRN Max Peralta, DO dextrose 50 % solution 25 mL 25 mL Intravenous PRN Max Peralta, DO enoxaparin (LOVENOX) injection 40 mg 40 mg Subcutaneous Q24H Rupesh Camara MD 40 mg at 02/26/14 0858 glucagon (GLUCAGEN) injection 0.5 mg 0.5 mg Intramuscular PRN Max Peralta, DO glucagon (GLUCAGEN) injection 1 mg 1 mg Intramuscular PRN Max Peralta, DO hydrALAZINE (APRESOLINE) injection 10 mg 10 mg Intravenous Q6H PRN Max Peralta, DO HYDROmorphone (DILAUDID) injection 0.5 mg 0.5 mg Intravenous Q3H PRN Presley Kat MD Or HYDROmorphone (DILAUDID) injection 1 mg 1 mg Intravenous Q3H PRN Presley Kat MD insulin aspart (NOVOLOG) injection 0-10 Units 0-10 Units Subcutaneous TID AC Max retana, DO 1 Units at 02/26/14 1239 insulin aspart (NOVOLOG) injection 0-5 Units 0-5 Units Subcutaneous Nightly Max menchaca, insulin aspart (NOVOLOG) injection 10 Units 10 Units Subcutaneous TID AC Max Peralta, DO insulin glargine (LANTUS) injection 30 Units 30 Units Subcutaneous BID Luly Anglin O 30 Units at 02/26/14 1033 lactobacillus (FLORANEX) granules 1 packet 1 packet Oral 4x Daily Rupesh Camara MD 1 packet at 02/26/14 1116 lidocaine buffered 1% injection 0.5 mL 0.5 mL Intradermal Once Presley Kat MD magnesium sulfate 1 g/50 mL IVPB 1 g Intravenous PRN Rupesh Camara MD Or magnesium sulfate 2 g/50 mL IVPB 2 g Intravenous PRN Rupesh Camara MD Or magnesium sulfate 3 g/50 mL IVPB 3 g Intravenous PRN Rupesh Camara MD omeprazole (PRILOSEC) capsule 20 mg 20 mg Oral QAM AC Max Peralta, DO 20 mg at 120 05/11 0857 ondansetron (ZOFRAN) tablet 4 mg 4 mg Oral Q6H PRN Presley Kat MD Or ondansetron (ZOFRAN) injection 4 mg 4 mg Intravenous Q6H PRN Presley Kat MD oxyCODONE (ROXICODONE) immediate release tablet 5 mg 5 mg Oral Q4H PRN Rupesh Camara MD 5 mg at 02/26/14 1127 PARoxetine (PAXIL) tablet 20 mg 20 mg Oral QAM Max Peralta, DO 20 mg at 02/26/14 08 58 phosphorus (K PHOS NEUTRAL) tablet 2 tablet 500 mg Oral PRN Rupesh Camara MD Or sodium phosphate 20 mmol in sodium chloride (IV) 0.9 % 100 mL IVPB 20 mmol Intravenous PRN Rupesh Camara MD Or sodium phosphate 45 mmol in sodium chloride (IV) 0.9 % 100 mL IVPB 45 mmol Intravenous PRN Rupesh Camara MD piperacillin-tazobactam (ZOSYN) 4-0.5 GM/100ML extended infusion bolus 4.5 g 4.5 g Int ravenous Once Presley Kat MD piperacillin-tazobactam (ZOSYN) extended infusion 3.375 g 3.375 g Intravenous Q8H David Kat MD 3.375 g at 02/26/14 1414 [MAR HOLD] polyethylene glycol (GLYCOLAX) packet 17 g 17 g Oral Daily PRN Presley little MD potassium chloride 20 mEq in 260 mL IVPB 20 mEq Intravenous PRN Rupesh Camara MD Or potassium chloride 40 mEq in 520 mL IVPB 40 mEq Intravenous PRN Rupesh Camara MD 40 mEq at 02/26/14 0915 Or potassium chloride 60 mEq in 530 mL IVPB 60 mEq Intravenous PRN Rupesh Camara MD sodium chloride 0.9 % infusion Intravenous Continuous Presley Kat MD vancomycin (VANCOCIN) 1500 mg/280 mL IVPB 1,500 mg Intravenous Q24H Watson Negrete MD 1,500 mg at 02/26/14 0039 [MAY HOLD] zolpidem (AMBIEN) tablet 5 mg 5 mg Oral Nightly PRN Presley Kat MD Allergies Allergen Reactions Levaquin [Levofloxacin] Other (See Comments) Muscle tension Fosamax [Alendronate] Nausea Only and GI Distress Ibuprofen GI Distress REVIEW OF SYSTEMS A comprehensive review of systems was negative except for those in the HPI. All other negat steve. PHYSICAL EXAM Vital Signs: BP 137/63 | Pulse 112 | Temp(Src) 102 F (38.9 C) (Oral) | Resp 30 | Ht 1.575 m (5' 2") | Wt 99.111 kg (218 lb 8 oz) | BMI 39.95 kg/m2 | SpO2 95% | ? No Temp (24hrs), Av.2 F (37.9 C), Min:98.6 F (37 C), Max:103.3 F (39.6 C) General Appearance: Alert, obese, cooperative, no distress Head: Normocephalic, without obvious abnormality, atraumatic Eyes: PERRL, conjunctiva/corneas clear. Throat: Lips, mucosa, and tongue normal; teeth and gums normal Neck: Supple, symmetrical, trachea midline, no adenopathy; thyroid: no enlargement/tenderness/nodules; no carotid bruit or JVD Back: Symmetric, no curvature, ROM normal, no CVA tenderness Lungs: Clear to auscultation bilaterally, respirations unlabored Chest Wall: No tenderness or deformity Heart: Regular rate and rhythm, S1 and S2 normal, no murmur, rub or gallop Abdomen: Soft, non-tender, bowel sounds active all four quadrants, no masses, no organomegaly Extremities: Extremities normal, atraumatic, no cyanosis or edema Pulses: 2+ and symmetric all extremities Skin: Skin color, texture, turgor normal, no rashes or lesions Lymph nodes: Cervical, supraclavicular, and axillary nodes normal Neurologic: GENITAL: Alert and oriented to time, place and person. CNII-XII intact, normal strength, sensation and reflexes throughout. No focal neurological deficits Significant soft tissue induration, erythema and pain to palpation in perineum and vulvar a matt. L > R. Venous access: PIV No signs of infection. REVIEW OF LABS: All labs reviewed. CBC: Lab Results Component Value Date WBC 23.0* 02/26/2014 RBC 3.47* 02/26/2014 HGB 9.0* 02/26/2014 HCT 29.1* 02/26/2014 MCV 83.7 02/26/2014 MCH 26.0* 02/26/2014 MCHC 31.1* 02/26/2014 RDW 46.8 02/26/2014 PLT 279 02/26/2014 MPV 7.9 02/26/2014 DIFFTYPE MANUAL 02/26/2014 CMP: Lab Results Component Value Date NA 138 02/26/2014 K 3.1* 02/26/2014 CL 109 02/26/2014 CO2 21* 02/26/2014 ANIONGAP 11 02/26/2014 GLUF 91 02/26/2014 BUN 33* 02/26/2014 CREATININE 1.11* 02/26/2014 BCR 30 02/26/2014 CA 7.0* 02/26/2014 PROT 6.4 02/25/2014 ALB 2.8* 02/25/2014 GLOB 3.6 02/25/2014 BILITOT 0.7 02/25/2014 ALP 116* 02/25/2014 AST 17 02/25/2014 ALT 10 02/25/2014 EGFR 54* 02/26/2014 MICROBIOLOGY Results Procedure Component Value Units Date/Time Anaerobic Culture W/Gram Stain [[id number]] Collected: 02/25/142040 Specimen Description VULVA Updated: 02/26/14 1019 SPECIAL REQUESTS [facility] TO DO GRAM SPECIAL REQUESTS Result: Testing performed at [facility];[address] [place] [address] GRAM STAIN 3+ GRAM STAIN GRAM POSITIVE RODS GRAM STAIN 2+ GRAM STAIN GRAM POSITIVE COCCI GRAM STAIN 2+ GRAM STAIN WBC'S SEEN GRAM STAIN Result: REVIEW OF SMEAR BY MICROBIOLOGY SHOWS THE FOLLOWING: GRAM STAIN 3+ GRAM STAIN GRAM POSITIVE COCCI GRAM STAIN 4+ GRAM STAIN GRAM POSITIVE RODS GRAM STAIN 3+ GRAM STAIN GRAM NEGATIVE RODS GRAM STAIN 2+ GRAM STAIN WBC'S SEEN GRAM STAIN Result: Testing performed at [facility], [address] [place] [address] CULTURE PENDING Blood Culture Set 2 [[id number]] Collected: 02/25/141956 Specimen Information: Blood / Blood Updated: 02/26/14 1015 C diff toxin by PCR (TAT 3 hr in house) [[id number]] Collected: 02/26/14 0336 Specimen Information: Stool / Stool Updated: 02/26/14 0522 Toxigenic C Difficile NEGATIVE 027 NAP1 BI 027 NAP1 BI PRESUMPTIVE NEGATIVE Blood Culture Set 1 [[id number]] Collected: 02/25/141953 Specimen Information: Blood / Blood, peripheral draw Updated: 02/25/142109 MRSA by PCR [[id number]] Collected: 02/25/141832 Specimen Information: Nasopharyngeal / Nares Updated: 02/25/141950 SOURCE NARES(NOSE) MRSA PCR NEGATIVE Wound culture [[id number]] Collected: 02/25/141834 Specimen Information: Nasopharyngeal / OTHR-w source desc (F6) Updated: 02/25/141948 IMAGING Reviewed images of: no images for review. PROBLEM LIST Principal Problem: Vulvar abscess Active Problems: Sepsis(995.91) DM2 (diabetes mellitus, type 2) Renal insufficiency COPD (chronic obstructive pulmonary disease) ASSESSMENT AND RECOMMENDATIONS The patient is a 58 y.o.-year-old female with the following problems 1. Sepsis 2. Vulvar abscess S/p I&D. Agree with broad spectrum coverage for now. Recommend iv atbx until 24 h after last fever, then atbx could be changed to oral based on culture results. Likely staph and anaerobic infection. Will follow. Discussed with Dr. Camara. Watson Negrete MD 02/26/2014 3:03 PM rown, Max Riggins DO - 02/25/2014 7:02 PM PST Consult* by Max Peralta DO at 02/25/141901 Author: Max Peralta DO Service: Hospitalist Author Type: Physician Filed: 02/25/142109 Date of Service: 02/25/141901 Status: Signed Senior Consulting Manager: Max Peralta DO (Physician) Related Notes: Original Note by Max Peralta DO (Physician) filed at 02/25/141946 HOSPITALIST CONSULT for Ana Rosa Wright female 1955 58 y.o. Chief complaint: groin pain History of present illness: patient presented to [facility] in [place] today w ith complaint of groin pain which has been developing over approx 2-3 days. Patient is not v gareth reliable giving history at this time because she is obtunded. There are family members a t bedside including a daughter that have supplemented the history. I don't have a lot of oth er details regarding this present problem. Patient answered "yes" to all my questions includ ing if she had had skin infection in the past, had she heard of MRSA, had she had MRSA infec tion in the past, etc, and I eventually began to suspect that patient was not answering ques tions accurately. What information about her PMH I have obtained is mainly from family/daugh ter at bedside and it may be incomplete information. There is no PMH-type information in the documents from [facility], only ED T-sheet and ED documentation. Their documentation did, however, contain what appears to be an accurate and complete home medication list. Review of systems: Not done - obtunded Past medical history: Past Medical History Diagnosis Date Diabetes mellitus, type 2 Hypertension COPD (chronic obstructive pulmonary disease) - per family, but patient not on any tx Family reports that patient has hx of "heart disease" but cannot elaborate, they state she has not had heart attack before Family reports that patient has hx scleroderma? But don't know any details about tx or doct ors Past surgical history: No known past surgical history per family Home medications: Prior to Admission medications Medication Sig Start Date End Date Taking? Authorizing Provider aspirin 81 MG chewable tablet Take 81 mg by mouth daily with breakfast. Yes Historical Pr ovider calcium-vitamin D (OSCAL-500) 500-200 MG-UNIT per tablet Take 1 tablet by mouth 2 (two) christy es daily. Yes Historical Provider HYDROcodone-acetaminophen (NORCO) 10-325 MG per tablet Take 1 tablet by mouth every 6 (six) hours as needed for Pain. Yes Historical Provider insulin aspart (NOVOLOG) 100 UNIT/ML injection Inject 20 Units into the skin 3 (three) time s daily before meals. Yes Historical Provider insulin glargine (LANTUS) 100 UNIT/ML injection Inject 80 Units into the skin 2 (two) times daily. Yes Historical Provider liraglutide (VICTOZA) 18 MG/3ML injection Inject 0.6 mg into the skin daily. Yes Historic al Provider metFORMIN (GLUCOPHAGE) 1000 MG tablet Take 1,000 mg by mouth 2 (two) times daily with meals . Yes Historical Provider omeprazole (PRILOSEC) 20 MG capsule Take 20 mg by mouth every morning before breakfast. Y es Historical Provider PARoxetine (PAXIL) 20 MG tablet Take 20 mg by mouth every morning. Yes Historical Provide r telmisartan (MICARDIS) 20 MG tablet Take 20 mg by mouth daily. Yes Historical Provider Allergies: Allergies Allergen Reactions Levaquin [Levofloxacin] Other (See Comments) Muscle tension Fosamax [Alendronate] Nausea Only and GI Distress Ibuprofen GI Distress Family history: History reviewed. No pertinent family history was obtainable at this time from family Social history: History Alcohol Use No History Smoking status Current Every Day Smoker -- 0.50 packs/day for 30 years Vitals: Vitals not charted by nursing. Per my exam, HR ~100, radial pulses easily palpable can sugg est a nonhypotensive BP, RR ~14, skin felt afebrile / normal temp Vitals from [facility] ED T-sheet about noon today: BP 112/54 HR 108 RR 16 Temp 98.6 Pulse ox 97% on RA * Now nursing reports temp 103.4, HR increasing to about 120 Physical exam: Obese,Obtunded, sometimes cringing or tensing as if in pain but mainly appears sleepy and s low to respond to questions, no acute distress HENT: atraumatic, mucus membranes moist, conjunctivae normal, neck supple, JVD couldn't be assessed due to obesity Heart: Regular tachy ~100 initially, now increasing to HR 120, no murmur, radial and dorsal is pedis pulses are palpable and equal Lungs: Clear to auscultation without wheezes, rales, rhonci, good effort, no respiratory di stress, no accessory muscle use Abdomen: Soft, nontender, nondistended, +bowel sounds in all 4 quadrants Extremities: No cyanosis, clubbing, tenderness, or edema Skin: L vulva and labia erythematous, with marked induration and +TTP, with what appears to be an open sore with white purulence Data: Blood work done at [facility] prior to transfer at around 12:30 p.m. included whi te blood cell count 29.6, hemoglobin 10.6, hematocrit 33.4, platelets 384, with bandemia, gl ucose 127, BUN 33, creatinine 1.34, sodium 138, potassium 3.5, chloride 105, CO2 20, calcium 8.7. Assessment/Plan: Vulvar abscess with sepsis Empiric abx IV Zosyn, Clinda and Vancomycin were given in [place] prior to transfer. Unkn own if blood cultures were taken so I have ordered that, though they may well be negative at this point from abx. Dr Kat planning on I&D shortly, which may alleviate a lot of patient's infectious insu lt and improve her clinical status. Otherwise she is at risk of devolving into septic shock. I expressed my concerns to Dr Kat and also ICU steel detailer Dr Andres. We will give appr ox 30 mL/kg/hr of IV fluid pre-operatively, and her hemodynamic stability can be reassessed intra- and post-operatively. Nursing is currently giving 1 liter bolus of 0.9% NS and I will have them give a second liter after this one. No definite hx cardiac problems. Dr Kat has continued IV Zosyn and vancomycin for now which seems appropriate. EDITA Probably pre-renal as family reports poor appetite in the patient over the weekend and now patient appears septic. Plan as above, rehydrate aggressively, monitor hemodynamics closely, monitor I/O, recheck BMP in morning, hold telmisartan. DM2 On very high home insulin regimen, per [facility]'s papers, of Lantus 80 units bid and Rodrigo log 20 units tid ac. Blood glucose levels today have apparently been in low 100's so I will tentatively monitor blood glucose trend today and order to start with lower doses of lantus 30 units bid and Novolog 10 units tid ac starting tomorrow. Hold metformin and Victoza. HTN Per family. BP's actually low normal at this time. Patient on telmisartan but this may be o nly for renal protection in DM2. Between soft BP's and EDITA I am going to hold telmisartan. COPD, smoking history Respiratory status appears stable without COPD exacerbation, monitor and plan otherwise as above for now. Problem list: Principal Problem: Vulvar abscess Active Problems: Sepsis(995.91) DM2 (diabetes mellitus, type 2) Renal insufficiency COPD (chronic obstructive pulmonary disease) Max Peralta DO 02/25/2014 7:02 PM documented in this enc ounter Miscellaneous Notes Plan of Care - Conversion Transaction, Provider Unknown - 03/10/2014 7:30 AM PST Plan of Care by Rogerio Quiros RN at 03/10/14729 Author: Rogerio Quiros RN Service: (none) Author Type: Registered Nurse Filed: 03/10/14743 Date of Service: 03/10/14729 Status: Signed Senior Consulting Manager: Rogerio Quiros RN (Registered Nurse) Patient's discharge needs are met Progressing Patient will discharge home with home health on Tuesday. Patient's pain/discomfort is manageable Progressing Patient's pain will be managed with oral medications. Patient will be injury free during hospitalization Progressing Patient's vital signs will remain stable. lan o f Care - Conversion Transaction, Provider Unknown - 03/09/2014 7:48 PM PSTFormatting of thi s note might be different from the original. Plan of Care by Nirmala Quintana RN at 03/09/141947 Author: Nirmala Quintana RN Service: (none) Author Type: Registered Nurse Filed: 03/09/141948 Date of Service: 03/09/141947 Status: Signed Senior Consulting Manager: Nirmala Quintana RN (Registered Nurse) Problem: Psychosocial Needs Goal: Demonstrates ability to cope with hospitalization/illness Assess and monitor patients ability to cope with his/her illness. Outcome: Adequate for Discharge Patient has family at bedside, emotionally appropriate and able to joke with staff. Nirmala Quintana Rn 03/09/14 @ 1947 lan o f Care - Conversion Transaction, Provider Unknown - 03/09/2014 7:15 AM PSTFormatting of thi s note might be different from the original. Plan of Care by Rogerio Quiros RN at 03/09/14714 Author: Rogerio Quiros RN Service: (none) Author Type: Registered Nurse Filed: 03/09/14735 Date of Service: 03/09/14714 Status: Signed Senior Consulting Manager: Rogerio Quiros RN (Registered Nurse) Daily care needs are met Progressing Patient will perform ADL's. Patient's discharge needs are met Progressing Patient will discharge home when criteria met. Signs and symptoms of infections are decreased or avoided Progressing Patient will remain afebrile. lan o f Care - Conversion Transaction, Provider Unknown - 03/08/2014 8:37 PM PSTFormatting of thi s note might be different from the original. Plan of Care by Nirmala Quintana RN at 03/08/142036 Author: Nirmala Quintana RN Service: (none) Author Type: Registered Nurse Filed: 03/08/142036 Date of Service: 03/08/142036 Status: Signed Senior Consulting Manager: Nirmala Quintana RN (Registered Nurse) Problem: Daily Care Goal: Daily care needs are met Assess and monitor ability to perform self care and identify potential discharge needs. Outcome: Progressing Patient actively provides own ADLs, calls appropriately for assistance when needed. Nirmala Quintana RN 03/08/14 @ 2036 lan o f Care - Conversion Transaction, Provider Unknown - 03/08/2014 7:30 AM PSTFormatting of thi s note might be different from the original. Plan of Care by Rogerio Quiros RN at 03/08/14729 Author: Rogerio Quiros RN Service: (none) Author Type: Registered Nurse Filed: 03/08/1439 Date of Service: 03/08/14729 Status: Signed Senior Consulting Manager: Rogerio Quiros RN (Registered Nurse) Daily care needs are met Progressing Patient will assist with ADL's. Patient's discharge needs are met Progressing Patient will discharge home when criteria met. Signs and symptoms of infections are decreased or avoided Progressing Patient will remain afebrile. p Not Neo Carlos MD - 03/04/2014 11:42 PM PSTFormatting of this note might be different fr om the original. Op Note by Neo Loyola MD at 03/04/14 2342 Author: Neo Loyola MD Service: General Surgery Author Type: Physician Filed: 03/05/14 1800 Date of Service: 03/04/142341 Status: Addendum Senior Consulting Manager: Neo Loyola MD (Physician) Related Notes: Original Note by Neo Loyola MD (Physician) filed at 03/04/14 2348 [facility] Service: General Surgery Operative Note Date of Surgery: 03/04/2014 Pre-operative Diagnosis: Skin abscess, wound VAC Post-operative Diagnosis: Same Procedure(s): Wound irrigation and debridement, VAC lee <50cm2 Surgeon: NEO LOYOLA MD Sand Wheeler(s): none Anesthesiologist: Sandor Jimenez MD Anesthesia: General endotrachial anesthesia Estimated Blood Loss: <10ml Drains: VAC and mikel Indications: Necrotizing soft tissue infection Findings: Small pocket of abscess in undermined area medial and superior to labial incisio n. Scant necrotic fat removed with excisional technique. Large drains replaced with a penr ose that is attached to white VAC foam by suture. Total of Three pieces of foam used (one w jaden and two black) Complications: None Description of Procedure: This patient was taken to the operating room placed in the supin e position and general endotracheal tube anesthesia was established. She was then positione d in yellowfin stirrups so that access to her perineum was achieved. All existing drains an d a VAC elements were removed. The area was prepped with Betadine paint and appropriate keo rile drapes were applied covering legs chest and the uninvolved portions of the abdomen. Wo und was explored and a small pocket of purulent material was drained superior and medial to the primary pocket exposed during the last procedure. This was excised using sharp instrume nts and scissors. It involved only the subcutaneous tissue. Relative involvement compared to the original drainage was approximated at 10% of the original abscess. The remainder of the wound tract which showing very positive signs of improvement with early granulation tiss ue present. The entire wound tract was irrigated with 6 L of sterile normal saline the firs t 3 L had bacitracin added to the pulse lavage fluid. Wound track was, once again, drained using a hybrid type of drain. The large Axiom drains were removed and replaced with a quart er inch Taylor drain that was sewn to a strip of white foam which filled the lower half of the wound tract extending into the perineal wound. Once again the perineal wound was packed with black VAC foam. Two upper incisions were closed simply with the VAC final this was to seal them and contained the negative pressure applied by the VAC through the perineum. VAC film was then applied to the perineum until seal was achieved. A relocation of the VAC Edgardo ding pad was performed through a strip of surface gauze that ran up to the lower abdomen. S atisfactory vacuum seal was achieved with minimal manipulation. No sting barrier film was a pplied to the labia and adjacent skin which was becoming macerated. This was done before e VAC film was applied. Patient was extubated and taken to the recovery area in satisfactory condition. Condition: Stable to PACU NEO LOYOLA MD 03/04/2014 11:42 PM lan of Care - Convers ion Transaction, Provider Unknown - 03/03/2014 8:02 AM PST Plan of Care by Ruth Ann Levin RN at 03/03/14801 Author: Ruth Ann Levin RN Service: (none) Author Type: Registered Nurse Filed: 03/03/14801 Date of Service: 03/03/14801 Status: Signed Senior Consulting Manager: Ruth Ann Levin RN (Registered Nurse) Problem: Safety Goal: Patient will be injury free during hospitalization Assess and monitor vitals signs, neurological status including level of consciousness and o rientation. Assess patient s risk for falls and implement fall prevention plan of care and interventions per hospital policy. Ensure arm band on, uncluttered walking paths in room, adequate room lighting, call light a nd overbed table within reach, bed in low position, wheels locked, side rails up per policy, and non-skid footwear provided. Outcome: Progressing Call light in place. Instructed patient to use when assistance is needed. Continue Reinforc ing as patient almost fell while getting up independently. Ruth Ann Levin RN 03/03/2014 8:01 AM lan o f Care - Conversion Transaction, Provider Unknown - 03/02/2014 8:05 AM PSTFormatting of thi s note might be different from the original. Plan of Care by Ruth Ann Levin RN at 03/02/14804 Author: Ruth Ann Levin RN Service: (none) Author Type: Registered Nurse Filed: 03/02/14804 Date of Service: 03/02/14804 Status: Signed Senior Consulting Manager: Ruth Ann Levin RN (Registered Nurse) Problem: Safety Goal: Patient will be injury free during hospitalization Assess and monitor vitals signs, neurological status including level of consciousness and o rientation. Assess patient s risk for falls and implement fall prevention plan of care and interventions per hospital policy. Ensure arm band on, uncluttered walking paths in room, adequate room lighting, call light a nd overbed table within reach, bed in low position, wheels locked, side rails up per policy, and non-skid footwear provided. Outcome: Progressing Call light in place. Instructed patient to use when assistance is needed. Ruth Ann Levin RN 03/02/2014 8:05 AM lan o f Care - Conversion Transaction, Provider Unknown - 03/01/2014 8:54 AM PSTFormatting of thi s note might be different from the original. Plan of Care by Ruth Ann Levin RN at 03/01/14853 Author: Ruth Ann Levin RN Service: (none) Author Type: Registered Nurse Filed: 03/01/14853 Date of Service: 03/01/14853 Status: Signed Senior Consulting Manager: Ruth Ann Levin RN (Registered Nurse) Problem: Safety Goal: Patient will be injury free during hospitalization Assess and monitor vitals signs, neurological status including level of consciousness and o rientation. Assess patient s risk for falls and implement fall prevention plan of care and interventions per hospital policy. Ensure arm band on, uncluttered walking paths in room, adequate room lighting, call light a nd overbed table within reach, bed in low position, wheels locked, side rails up per policy, and non-skid footwear provided. Outcome: Progressing Call light in place. Instructed patient to use when assistance is needed. Ruth Ann Levin RN 03/01/2014 8:54 AM p Not e - Neo Loyola MD - 02/28/2014 11:32 PM PSTFormatting of this note might be different fr om the original. Op Note by Neo Loyola MD at 02/28/142331 Author: Neo Loyola MD Service: General Surgery Author Type: Physician Filed: 02/28/142341 Date of Service: 02/28/142331 Status: Signed Senior Consulting Manager: Neo Loyola MD (Physician) [facility] Service: General Surgery Operative Note Date of Surgery: 02/28/2014 Pre-operative Diagnosis: Soft tissue abscess left groin and perineum (involving labia alphonso ra) Post-operative Diagnosis: Same Procedure(s): Incision and drainage. Placement of VAC less than 50 cm Surgeon: NEO LOYOLA MD Sand Wheeler(s): None Anesthesiologist: Génesis Maier MD Anesthesia: General endotrachial anesthesia Estimated Blood Loss: 100 mL's Drains: Two large Axiom sump drains and a VAC Indications: Sepsis and visible soft tissue gas seen on CT scan. Palpable inflammatory ch anges extending up the left flank. Findings: Necrotic fat and gangrenous changes within the left labium and extending into th e left side of the mons pubis. Complications: None Description of Procedure: This patient was taken to the operating room placed in supine po sition and general endotracheal tube anesthesia was established without any difficulty. Onc e asleep patient was positioned in the [facility] stirrups so that access could be achieved t o her perineum. Her existing packing was removed from the small I and D site in the left pe rineum. Patient was positioned so that there was access to her left flank and left groin ar ea since this was the area that the infection seemed to track through on the CT scan. Timeo ut was performed confirming patient identification and any special equipment needs. A combi arturo prep of ChloraPrep and the upper portion of the wound and Betadine paint on the perineum was performed. The existing opening was examined. Palpation of the anterior left labia pr oduced more drainage and there was a fluctuant area. This area was incised and eventually t he two incisions were connected along the long access of the left labia majora. The subcuta neous fat extending down to the abdominal fascia appeared necrotic. All necrotic tissue was removed with a large raw sure biting out nonviable, infected subcutaneous tissue. Probing along the surface of the fascia in the direction of the left flank created a pocket which I believe is a pocket that the bacteria were as tracking along causing cellulitis and pain in the left flank. This was fully opened. The exposed and visible fascia did not appear to be necrotic. This does not appear to be necrotizing fasciitis but it is a necrotizing celluli tis. A counter incision was made along this track in the left groin. The track was extende d up till the mid area of the left flank where there was palpable cellulitis and a third inc ision was made at this site. Eventually the three incisions were connected through this tra ct. 6 L of sterile normal saline was then pumped through this track using the pulse lavage. Two large Axiom sump drains were inserted through the most superior lateral site in the le ft flank and there were positioned at different levels within the tract. This would be for irrigation and drainage of the tract. Electrocautery was applied to the skin edge on the pe rineum to achieve hemostasis. A VAC sponge was then cut as a long 2 x 2 centimeter square s trip and it was run from the perineal wound to the left groin wound. VAC sticky vinyl was t hen applied to the middle and the most inferior wound in order to achieve an acceptable seal . This proved to be quite challenging on the perineum. The VAC Landing pad was then applie d to the left groin wound. Some additional VAC vinyl was placed around the entry site of th e large drains and the outlet so these drains were sealed to the best of our abilities to pr event air flowing in the drains and breaking the seal of the VAC. At this point in time the maintenance of a precise vacuum pressure is not a priority. The calixto goal of all these drai ns and the VAC is to achieve outward migration of bacteria and access for irrigation and/or possibly antibiotic solutions which could be instilled directly into the wound tract. Once adequately sealed the patient was extubated and taken to recovery room in satisfactory condition. Sponge and needle counts were correct at the conclusion of the procedure. VAC in place with 2-0 Prolene sutures. NEO LOYOLA MD 02/28/2014 11:33 PM p Note - Dave Kat MD - 02/25/2014 10:20 PM PSTFormatting of this note might be different from the orig inal. Op Note by Presley Kat MD at 02/25/142219 Author: Presley Kat MD Service: (none) Author Type: Physician Filed: 02/26/14 1000 Date of Service: 02/25/142219 Status: Signed Senior Consulting Manager: Presley Kat MD (Physician) [facility] Service: Obstetrics & Gynecology Operative Note Pre-operative Diagnosis: Left vulvar abscess Post-operative Diagnosis: Same Procedure(s): Incision and drainage of left vulvar abscess, breaking up of loculations, pa cking and Mikel drain placement Surgeon: PRESLEY KAT MD Sand Wheeler(s): OR staff Anesthesia: General endotrachial anesthesia Estimated Blood Loss: Less Than 100 ml Other: IV Fluids: See anesthesia ml Drains: Mikel drain, packed in with iodoform half-inch gauze ml Urine Output: Adequate, Vazquez placed ml Implants: None Specimens: No pathology specimen, but culture obtained See anesthesia note Indications: See pre-operative history and physical. Findings: Left vulva, labia majora was 2-1/2-3 times normal size, firm, very tender, there was a fistulous opening on the backside towards the buttock. It did not extend posteriorly however, extended anteriorly into the labia majora and vulvar area. Significant loculation s encountered. All loculated pockets were broken up instrumentally and/or digitally. Complications: None apparent Description of Procedure: Taken to the operating room and placed on the table in the supin e position. After induction of general anesthesia moved to the low mid lithotomy position a nd the pelvis and vagina were sterilely prepped and draped in the usual fashion. Timeout he ld. She had already received IV antibiotics as noted. Scalpel was employed and the defect on the posterior edge of the abscess was opened with the scalpel and then a mosquito clamp w as employed to break up loculations, with extrusion of brown abscess fluid with typical anae robic odor. I also employed my finger to further break up loculations and there were no oth er loculated areas noted at the end of this process. The defect did not extend posteriorly towards the buttock or rectum, but anteriorly into the left labia majora, up partially into the mons on the left side. A Taylor drain was placed to the apical extent of the wound, an d then half-inch iodoform gauze was packed into the wound holding the Taylor drain in place . No suturing. Prior to packing I did irrigate the wound with normal saline. No apparent complications. Continue IV antibiotic regimen. Condition: Stable PRESLEY KAT MD 02/25/2014 lan of Care - Co nversion Transaction, Provider Unknown - 02/25/2014 7:53 PM PSTFormatting of this note migh t be different from the original. Plan of Care by Nirmala Quintana RN at 02/25/141952 Author: Nirmala Quintana RN Service: (none) Author Type: Registered Nurse Filed: 02/25/141952 Date of Service: 02/25/141952 Status: Signed Senior Consulting Manager: Nirmala Quintana RN (Registered Nurse) Problem: Pain Goal: Patient s pain/discomfort is manageable Assess and monitor patient s pain using appropriate pain scale. Collaborate with interdis ciplinary team and initiate plan and interventions as ordered. Re-assess patient s pain le ethan approximately 1-2 hours after pain management intervention. Premedicate as needed. Outcome: Progressing Patient verbalizes adequate pain control. Nirmala Quintana RN 02/25/14 @ 1952 docume nted in this encounter Plan of Treatment +--------+---------+ + + + | Date | Type | Specialty | Care Team | Description | +--------+---------+ + + + | 01/15/ | Office | Rheumatology | [place], | | | 2019 | Visit | | [address] | | | | | | [address] | | | | | | [place] [address] | | | | | | [phone] | | | | | | | | +--------+---------+ + + + documented as of this encounter Procedures + +--------+ + + + | Procedure Name | Priori | Date/Time | Associated Diagnosis | Comments | | | ty | | | | + +--------+ + + + | POC GLUCOSE | Routin | 03/11/2014 | | Results for this | | | e | 5:23 AM | | procedure are in the | | | | PST | | results section. | + +--------+ + + + | EXTERNAL LAB: CBC | Routin | 03/11/2014 | | Results for this | | | e | 3:59 AM | | procedure are in the | | | | PST | | results section. | + +--------+ + + + | PHOSPHORUS | Routin | 03/11/2014 | | Results for this | | | e | 3:59 AM | | procedure are in the | | | | PST | | results section. | + +--------+ + + + | MAGNESIUM | Routin | 03/11/2014 | | Results for this | | | e | 3:59 AM | | procedure are in the | | | | PST | | results section. | + +--------+ + + + | BASIC METABOLIC | Routin | 03/11/2014 | | Results for this | | PANEL | e | 3:59 AM | | procedure are in the | | | | PST | | results section. | + +--------+ + + + | POC GLUCOSE | Routin | 03/10/2014 | | Results for this | | | e | 9:26 PM | | procedure are in the | | | | PST | | results section. | + +--------+ + + + | POC GLUCOSE | Routin | 03/10/2014 | | Results for this | | | e | 5:04 PM | | procedure are in the | | | | PST | | results section. | + +--------+ + + + | POC GLUCOSE | Routin | 03/10/2014 | | Results for this | | | e | 11:40 AM | | procedure are in the | | | | PST | | results section. | + +--------+ + + + | POTASSIUM | Routin | 03/10/2014 | | Results for this | | | e | 10:01 AM | | procedure are in the | | | | PST | | results section. | + +--------+ + + + | POC GLUCOSE | Routin | 03/10/2014 | | Results for this | | | e | 5:29 AM | | procedure are in the | | | | PST | | results section. | + +--------+ + + + | EXTERNAL LAB: CBC | Routin | 03/10/2014 | | Results for this | | | e | 3:24 AM | | procedure are in the | | | | PST | | results section. | + +--------+ + + + | PHOSPHORUS | Routin | 03/10/2014 | | Results for this | | | e | 3:24 AM | | procedure are in the | | | | PST | | results section. | + +--------+ + + + | MAGNESIUM | Routin | 03/10/2014 | | Results for this | | | e | 3:24 AM | | procedure are in the | | | | PST | | results section. | + +--------+ + + + | COMPREHENSIVE | Routin | 03/10/2014 | | Results for this | | METABOLIC PANEL | e | 3:24 AM | | procedure are in the | | | | PST | | results section. | + +--------+ + + + | POC GLUCOSE | Routin | 03/09/2014 | | Results for this | | | e | 8:38 PM | | procedure are in the | | | | PST | | results section. | + +--------+ + + + | POC GLUCOSE | Routin | 03/09/2014 | | Results for this | | | e | 3:12 PM | | procedure are in the | | | | PST | | results section. | + +--------+ + + + | POC GLUCOSE | Routin | 03/09/2014 | | Results for this | | | e | 11:11 AM | | procedure are in the | | | | PST | | results section. | + +--------+ + + + | POC GLUCOSE | Routin | 03/09/2014 | | Results for this | | | e | 5:59 AM | | procedure are in the | | | | PST | | results section. | + +--------+ + + + | PHOSPHORUS | Routin | 03/09/2014 | | Results for this | | | e | 3:31 AM | | procedure are in the | | | | PST | | results section. | + +--------+ + + + | MAGNESIUM | Routin | 03/09/2014 | | Results for this | | | e | 3:31 AM | | procedure are in the | | | | PST | | results section. | + +--------+ + + + | EXTERNAL LAB: OCCULT | Routin | 03/08/2014 | | Results for this | | BLOOD, SCREENING | e | 10:53 PM | | procedure are in the | | | | PST | | results section. | + +--------+ + + + | POC GLUCOSE | Routin | 03/08/2014 | | Results for this | | | e | 9:31 PM | | procedure are in the | | | | PST | | results section. | + +--------+ + + + | POC GLUCOSE | Routin | 03/08/2014 | | Results for this | | | e | 4:33 PM | | procedure are in the | | | | PST | | results section. | + +--------+ + + + | POC GLUCOSE | Routin | 03/08/2014 | | Results for this | | | e | 12:14 PM | | procedure are in the | | | | PST | | results section. | + +--------+ + + + | VANCOMYCIN, TROUGH | Routin | 03/08/2014 | | Results for this | | | e | 11:07 AM | | procedure are in the | | | | PST | | results section. | + +--------+ + + + | POC GLUCOSE | Routin | 03/08/2014 | | Results for this | | | e | 5:30 AM | | procedure are in the | | | | PST | | results section. | + +--------+ + + + | EXTERNAL LAB: CBC | Routin | 03/08/2014 | | Results for this | | | e | 4:26 AM | | procedure are in the | | | | PST | | results section. | + +--------+ + + + | PHOSPHORUS | Routin | 03/08/2014 | | Results for this | | | e | 4:26 AM | | procedure are in the | | | | PST | | results section. | + +--------+ + + + | MAGNESIUM | Routin | 03/08/2014 | | Results for this | | | e | 4:26 AM | | procedure are in the | | | | PST | | results section. | + +--------+ + + + | COMPREHENSIVE | Routin | 03/08/2014 | | Results for this | | METABOLIC PANEL | e | 4:26 AM | | procedure are in the | | | | PST | | results section. | + +--------+ + + + | POC GLUCOSE | Routin | 03/07/2014 | | Results for this | | | e | 9:33 PM | | procedure are in the | | | | PST | | results section. | + +--------+ + + + | POC GLUCOSE | Routin | 03/07/2014 | | Results for this | | | e | 4:10 PM | | procedure are in the | | | | PST | | results section. | + +--------+ + + + | POC GLUCOSE | Routin | 03/07/2014 | | Results for this | | | e | 11:23 AM | | procedure are in the | | | | PST | | results section. | + +--------+ + + + | POC GLUCOSE | Routin | 03/07/2014 | | Results for this | | | e | 11:05 AM | | procedure are in the | | | | PST | | results section. | + +--------+ + + + | PREALBUMIN | Routin | 03/07/2014 | | Results for this | | | e | 10:33 AM | | procedure are in the | | | | PST | | results section. | + +--------+ + + + | VANCOMYCIN, TROUGH | Routin | 03/07/2014 | | Results for this | | | e | 6:32 AM | | procedure are in the | | | | PST | | results section. | + +--------+ + + + | POC GLUCOSE | Routin | 03/07/2014 | | Results for this | | | e | 5:45 AM | | procedure are in the | | | | PST | | results section. | + +--------+ + + + | EXTERNAL LAB: CBC | Routin | 03/07/2014 | | Results for this | | | e | 4:15 AM | | procedure are in the | | | | PST | | results section. | + +--------+ + + + | PHOSPHORUS | Routin | 03/07/2014 | | Results for this | | | e | 4:15 AM | | procedure are in the | | | | PST | | results section. | + +--------+ + + + | MAGNESIUM | Routin | 03/07/2014 | | Results for this | | | e | 4:15 AM | | procedure are in the | | | | PST | | results section. | + +--------+ + + + | POC GLUCOSE | Routin | 03/06/2014 | | Results for this | | | e | 9:46 PM | | procedure are in the | | | | PST | | results section. | + +--------+ + + + | CT ABDOMEN PELVIS W | Routin | 03/06/2014 | | Results for this | | CONTRAST | e | 8:27 PM | | procedure are in the | | | | PST | | results section. | + +--------+ + + + | POC GLUCOSE | Routin | 03/06/2014 | | Results for this | | | e | 4:38 PM | | procedure are in the | | | | PST | | results section. | + +--------+ + + + | MAGNESIUM | Routin | 03/06/2014 | | Results for this | | | e | 3:02 PM | | procedure are in the | | | | PST | | results section. | + +--------+ + + + | RAMSEY, TROUGH | Routin | 03/06/2014 | | Results for this | | | e | 3:02 PM | | procedure are in the | | | | PST | | results section. | + +--------+ + + + | POC GLUCOSE | Routin | 03/06/2014 | | Results for this | | | e | 1:51 PM | | procedure are in the | | | | PST | | results section. | + +--------+ + + + | POC GLUCOSE | Routin | 03/06/2014 | | Results for this | | | e | 12:04 PM | | procedure are in the | | | | PST | | results section. | + +--------+ + + + | POC GLUCOSE | Routin | 03/06/2014 | | Results for this | | | e | 5:17 AM | | procedure are in the | | | | PST | | results section. | + +--------+ + + + | EXTERNAL LAB: CBC | Routin | 03/06/2014 | | Results for this | | | e | 4:18 AM | | procedure are in the | | | | PST | | results section. | + +--------+ + + + | PHOSPHORUS | Routin | 03/06/2014 | | Results for this | | | e | 4:18 AM | | procedure are in the | | | | PST | | results section. | + +--------+ + + + | MAGNESIUM | Routin | 03/06/2014 | | Results for this | | | e | 4:18 AM | | procedure are in the | | | | PST | | results section. | + +--------+ + + + | POC GLUCOSE | Routin | 03/05/2014 | | Results for this | | | e | 9:14 PM | | procedure are in the | | | | PST | | results section. | + +--------+ + + + | VANCOMYCIN, TROUGH | Routin | 03/05/2014 | | Results for this | | | e | 8:04 PM | | procedure are in the | | | | PST | | results section. | + +--------+ + + + | POC GLUCOSE | Routin | 03/05/2014 | | Results for this | | | e | 3:51 PM | | procedure are in the | | | | PST | | results section. | + +--------+ + + + | POC GLUCOSE | Routin | 03/05/2014 | | Results for this | | | e | 11:52 AM | | procedure are in the | | | | PST | | results section. | + +--------+ + + + | POC GLUCOSE | Routin | 03/05/2014 | | Results for this | | | e | 6:33 AM | | procedure are in the | | | | PST | | results section. | + +--------+ + + + | EXTERNAL LAB: CBC | Routin | 03/05/2014 | | Results for this | | | e | 3:19 AM | | procedure are in the | | | | PST | | results section. | + +--------+ + + + | PHOSPHORUS | Routin | 03/05/2014 | | Results for this | | | e | 3:19 AM | | procedure are in the | | | | PST | | results section. | + +--------+ + + + | MAGNESIUM | Routin | 03/05/2014 | | Results for this | | | e | 3:19 AM | | procedure are in the | | | | PST | | results section. | + +--------+ + + + | COMPREHENSIVE | Routin | 03/05/2014 | | Results for this | | METABOLIC PANEL | e | 3:19 AM | | procedure are in the | | | | PST | | results section. | + +--------+ + + + | POC GLUCOSE | Routin | 03/04/2014 | | Results for this | | | e | 9:50 PM | | procedure are in the | | | | PST | | results section. | + +--------+ + + + | POC GLUCOSE | Routin | 03/04/2014 | | Results for this | | | e | 4:20 PM | | procedure are in the | | | | PST | | results section. | + +--------+ + + + | POC GLUCOSE | Routin | 03/04/2014 | | Results for this | | | e | 12:50 PM | | procedure are in the | | | | PST | | results section. | + +--------+ + + + | POC GLUCOSE | Routin | 03/04/2014 | | Results for this | | | e | 11:01 AM | | procedure are in the | | | | PST | | results section. | + +--------+ + + + | CBC WITH MANUAL | Routin | 03/04/2014 | | Results for this | | DIFFERENTIAL | e | 5:35 AM | | procedure are in the | | | | PST | | results section. | + +--------+ + + + | PHOSPHORUS | Routin | 03/04/2014 | | Results for this | | | e | 5:35 AM | | procedure are in the | | | | PST | | results section. | + +--------+ + + + | MAGNESIUM | Routin | 03/04/2014 | | Results for this | | | e | 5:35 AM | | procedure are in the | | | | PST | | results section. | + +--------+ + + + | COMPREHENSIVE | Routin | 03/04/2014 | | Results for this | | METABOLIC PANEL | e | 5:35 AM | | procedure are in the | | | | PST | | results section. | + +--------+ + + + | POC GLUCOSE | Routin | 03/04/2014 | | Results for this | | | e | 5:24 AM | | procedure are in the | | | | PST | | results section. | + +--------+ + + + | POC GLUCOSE | Routin | 03/03/2014 | | Results for this | | | e | 9:40 PM | | procedure are in the | | | | PST | | results section. | + +--------+ + + + | RAMSEY, TROUGH | Routin | 03/03/2014 | | Results for this | | | e | 4:17 PM | | procedure are in the | | | | PST | | results section. | + +--------+ + + + | POC GLUCOSE | Routin | 03/03/2014 | | Results for this | | | e | 4:05 PM | | procedure are in the | | | | PST | | results section. | + +--------+ + + + | POC GLUCOSE | Routin | 03/03/2014 | | Results for this | | | e | 11:06 AM | | procedure are in the | | | | PST | | results section. | + +--------+ + + + | POC GLUCOSE | Routin | 03/03/2014 | | Results for this | | | e | 5:09 AM | | procedure are in the | | | | PST | | results section. | + +--------+ + + + | CBC WITH MANUAL | Routin | 03/03/2014 | | Results for this | | DIFFERENTIAL | e | 4:28 AM | | procedure are in the | | | | PST | | results section. | + +--------+ + + + | VITAMIN D, | Routin | 03/03/2014 | | Results for this | | DEFICIENCY SCREEN | e | 4:28 AM | | procedure are in the | | (25-HYDROXY) | | PST | | results section. | + +--------+ + + + | SEDIMENTATION RATE, | Routin | 03/03/2014 | | Results for this | | AUTOMATED | e | 4:28 AM | | procedure are in the | | | | PST | | results section. | + +--------+ + + + | C-REACTIVE PROTEIN | Routin | 03/03/2014 | | Results for this | | | e | 4:28 AM | | procedure are in the | | | | PST | | results section. | + +--------+ + + + | PHOSPHORUS | Routin | 03/03/2014 | | Results for this | | | e | 4:28 AM | | procedure are in the | | | | PST | | results section. | + +--------+ + + + | MAGNESIUM | Routin | 03/03/2014 | | Results for this | | | e | 4:28 AM | | procedure are in the | | | | PST | | results section. | + +--------+ + + + | COMPREHENSIVE | Routin | 03/03/2014 | | Results for this | | METABOLIC PANEL | e | 4:28 AM | | procedure are in the | | | | PST | | results section. | + +--------+ + + + | POC GLUCOSE | Routin | 03/02/2014 | | Results for this | | | e | 9:26 PM | | procedure are in the | | | | PST | | results section. | + +--------+ + + + | POC GLUCOSE | Routin | 03/02/2014 | | Results for this | | | e | 4:29 PM | | procedure are in the | | | | PST | | results section. | + +--------+ + + + | VANCOMYCIN TROUGH | Routin | 03/02/2014 | | Results for this | | | e | 3:20 PM | | procedure are in the | | | | PST | | results section. | + +--------+ + + + | POTASSIUM | Routin | 03/02/2014 | | Results for this | | | e | 11:17 AM | | procedure are in the | | | | PST | | results section. | + +--------+ + + + | MAGNESIUM | Routin | 03/02/2014 | | Results for this | | | e | 11:17 AM | | procedure are in the | | | | PST | | results section. | + +--------+ + + + | POC GLUCOSE | Routin | 03/02/2014 | | Results for this | | | e | 11:05 AM | | procedure are in the | | | | PST | | results section. | + +--------+ + + + | HISTORICAL | Timed | 03/02/2014 | | Results for this | | MICROBIOLOGY RESULT | | 6:52 AM | | procedure are in the | | | | PST | | results section. | + +--------+ + + + | POC GLUCOSE | Routin | 03/02/2014 | | Results for this | | | e | 5:03 AM | | procedure are in the | | | | PST | | results section. | + +--------+ + + + | EXTERNAL LAB: CBC | Routin | 03/02/2014 | | Results for this | | | e | 4:13 AM | | procedure are in the | | | | PST | | results section. | + +--------+ + + + | IRON AND IRON | Routin | 03/02/2014 | | Results for this | | BINDING CAPACITY | e | 4:13 AM | | procedure are in the | | | | PST | | results section. | + +--------+ + + + | VITAMIN B-12 | Routin | 03/02/2014 | | Results for this | | | e | 4:13 AM | | procedure are in the | | | | PST | | results section. | + +--------+ + + + | ANTISTREPTOLYSIN O, | Routin | 03/02/2014 | | Results for this | | QUANT | e | 4:13 AM | | procedure are in the | | | | PST | | results section. | + +--------+ + + + | SEDIMENTATION RATE, | Routin | 03/02/2014 | | Results for this | | AUTOMATED | e | 4:13 AM | | procedure are in the | | | | PST | | results section. | + +--------+ + + + | RETIC COUNT | Routin | 03/02/2014 | | Results for this | | | e | 4:13 AM | | procedure are in the | | | | PST | | results section. | + +--------+ + + + | C-REACTIVE PROTEIN | Routin | 03/02/2014 | | Results for this | | | e | 4:13 AM | | procedure are in the | | | | PST | | results section. | + +--------+ + + + | PHOSPHORUS | Routin | 03/02/2014 | | Results for this | | | e | 4:13 AM | | procedure are in the | | | | PST | | results section. | + +--------+ + + + | MAGNESIUM | Routin | 03/02/2014 | | Results for this | | | e | 4:13 AM | | procedure are in the | | | | PST | | results section. | + +--------+ + + + | FOLATE | Routin | 03/02/2014 | | Results for this | | | e | 4:13 AM | | procedure are in the | | | | PST | | results section. | + +--------+ + + + | FERRITIN | Routin | 03/02/2014 | | Results for this | | | e | 4:13 AM | | procedure are in the | | | | PST | | results section. | + +--------+ + + + | CK TOTAL | Routin | 03/02/2014 | | Results for this | | | e | 4:13 AM | | procedure are in the | | | | PST | | results section. | + +--------+ + + + | VANCOMYCIN, TROUGH | Routin | 03/02/2014 | | Results for this | | | e | 4:13 AM | | procedure are in the | | | | PST | | results section. | + +--------+ + + + | COMPREHENSIVE | Routin | 03/02/2014 | | Results for this | | METABOLIC PANEL | e | 4:13 AM | | procedure are in the | | | | PST | | results section. | + +--------+ + + + | POC GLUCOSE | Routin | 03/01/2014 | | Results for this | | | e | 8:58 PM | | procedure are in the | | | | PST | | results section. | + +--------+ + + + | POTASSIUM | Routin | 03/01/2014 | | Results for this | | | e | 4:56 PM | | procedure are in the | | | | PST | | results section. | + +--------+ + + + | POC GLUCOSE | Routin | 03/01/2014 | | Results for this | | | e | 4:26 PM | | procedure are in the | | | | PST | | results section. | + +--------+ + + + | POC GLUCOSE | Routin | 03/01/2014 | | Results for this | | | e | 11:21 AM | | procedure are in the | | | | PST | | results section. | + +--------+ + + + | EXTERNAL LAB: CBC | Routin | 03/01/2014 | | Results for this | | | e | 6:11 AM | | procedure are in the | | | | PST | | results section. | + +--------+ + + + | PHOSPHORUS | Routin | 03/01/2014 | | Results for this | | | e | 6:11 AM | | procedure are in the | | | | PST | | results section. | + +--------+ + + + | MAGNESIUM | Routin | 03/01/2014 | | Results for this | | | e | 6:11 AM | | procedure are in the | | | | PST | | results section. | + +--------+ + + + | COMPREHENSIVE | Routin | 03/01/2014 | | Results for this | | METABOLIC PANEL | e | 6:11 AM | | procedure are in the | | | | PST | | results section. | + +--------+ + + + | POC GLUCOSE | Routin | 03/01/2014 | | Results for this | | | e | 5:35 AM | | procedure are in the | | | | PST | | results section. | + +--------+ + + + | POC GLUCOSE | Routin | 02/28/2014 | | Results for this | | | e | 10:49 PM | | procedure are in the | | | | PST | | results section. | + +--------+ + + + | POC GLUCOSE | Routin | 02/28/2014 | | Results for this | | | e | 7:45 PM | | procedure are in the | | | | PST | | results section. | + +--------+ + + + | TYPE AND SCREEN | Routin | 02/28/2014 | | Results for this | | | e | 6:20 PM | | procedure are in the | | | | PST | | results section. | + +--------+ + + + | POC GLUCOSE | Routin | 02/28/2014 | | Results for this | | | e | 3:15 PM | | procedure are in the | | | | PST | | results section. | + +--------+ + + + | POC GLUCOSE | Routin | 02/28/2014 | | Results for this | | | e | 11:08 AM | | procedure are in the | | | | PST | | results section. | + +--------+ + + + | POC GLUCOSE | Routin | 02/28/2014 | | Results for this | | | e | 5:46 AM | | procedure are in the | | | | PST | | results section. | + +--------+ + + + | EXTERNAL LAB: CBC | Routin | 02/28/2014 | | Results for this | | | e | 5:32 AM | | procedure are in the | | | | PST | | results section. | + +--------+ + + + | PHOSPHORUS | Routin | 02/28/2014 | | Results for this | | | e | 5:32 AM | | procedure are in the | | | | PST | | results section. | + +--------+ + + + | MAGNESIUM | Routin | 02/28/2014 | | Results for this | | | e | 5:32 AM | | procedure are in the | | | | PST | | results section. | + +--------+ + + + | COMPREHENSIVE | Routin | 02/28/2014 | | Results for this | | METABOLIC PANEL | e | 5:32 AM | | procedure are in the | | | | PST | | results section. | + +--------+ + + + | POC GLUCOSE | Routin | 02/27/2014 | | Results for this | | | e | 9:35 PM | | procedure are in the | | | | PST | | results section. | + +--------+ + + + | HISTORICAL | Timed | 02/27/2014 | | Results for this | | MICROBIOLOGY RESULT | | 8:25 PM | | procedure are in the | | | | PST | | results section. | + +--------+ + + + | POTASSIUM | Routin | 02/27/2014 | | Results for this | | | e | 5:43 PM | | procedure are in the | | | | PST | | results section. | + +--------+ + + + | PHOSPHORUS | Routin | 02/27/2014 | | Results for this | | | e | 5:43 PM | | procedure are in the | | | | PST | | results section. | + +--------+ + + + | CT ABDOMEN PELVIS W | Routin | 02/27/2014 | | Results for this | | CONTRAST | e | 4:47 PM | | procedure are in the | | | | PST | | results section. | + +--------+ + + + | POC GLUCOSE | Routin | 02/27/2014 | | Results for this | | | e | 4:19 PM | | procedure are in the | | | | PST | | results section. | + +--------+ + + + | POC GLUCOSE | Routin | 02/27/2014 | | Results for this | | | e | 12:09 PM | | procedure are in the | | | | PST | | results section. | + +--------+ + + + | EXTERNAL LAB: CBC | Routin | 02/27/2014 | | Results for this | | | e | 6:25 AM | | procedure are in the | | | | PST | | results section. | + +--------+ + + + | C-REACTIVE PROTEIN | Routin | 02/27/2014 | | Results for this | | | e | 6:25 AM | | procedure are in the | | | | PST | | results section. | + +--------+ + + + | PHOSPHORUS | Routin | 02/27/2014 | | Results for this | | | e | 6:25 AM | | procedure are in the | | | | PST | | results section. | + +--------+ + + + | MAGNESIUM | Routin | 02/27/2014 | | Results for this | | | e | 6:25 AM | | procedure are in the | | | | PST | | results section. | + +--------+ + + + | HEMOGLOBIN A1C | Routin | 02/27/2014 | | Results for this | | | e | 6:25 AM | | procedure are in the | | | | PST | | results section. | + +--------+ + + + | COMPREHENSIVE | Routin | 02/27/2014 | | Results for this | | METABOLIC PANEL | e | 6:25 AM | | procedure are in the | | | | PST | | results section. | + +--------+ + + + | POC GLUCOSE | Routin | 02/27/2014 | | Results for this | | | e | 5:50 AM | | procedure are in the | | | | PST | | results section. | + +--------+ + + + | POC GLUCOSE | Routin | 02/26/2014 | | Results for this | | | e | 9:56 PM | | procedure are in the | | | | PST | | results section. | + +--------+ + + + | POC GLUCOSE | Routin | 02/26/2014 | | Results for this | | | e | 4:51 PM | | procedure are in the | | | | PST | | results section. | + +--------+ + + + | POC GLUCOSE | Routin | 02/26/2014 | | Results for this | | | e | 4:42 PM | | procedure are in the | | | | PST | | results section. | + +--------+ + + + | POTASSIUM | Routin | 02/26/2014 | | Results for this | | | e | 4:12 PM | | procedure are in the | | | | PST | | results section. | + +--------+ + + + | POC GLUCOSE | Routin | 02/26/2014 | | Results for this | | | e | 12:10 PM | | procedure are in the | | | | PST | | results section. | + +--------+ + + + | PHOSPHORUS | Routin | 02/26/2014 | | Results for this | | | e | 6:30 AM | | procedure are in the | | | | PST | | results section. | + +--------+ + + + | MAGNESIUM | Routin | 02/26/2014 | | Results for this | | | e | 6:30 AM | | procedure are in the | | | | PST | | results section. | + +--------+ + + + | BASIC METABOLIC | Routin | 02/26/2014 | | Results for this | | PANEL | e | 6:30 AM | | procedure are in the | | | | PST | | results section. | + +--------+ + + + | CBC WITH MANUAL | Routin | 02/26/2014 | | Results for this | | DIFFERENTIAL | e | 6:21 AM | | procedure are in the | | | | PST | | results section. | + +--------+ + + + | POC GLUCOSE | Routin | 02/26/2014 | | Results for this | | | e | 6:08 AM | | procedure are in the | | | | PST | | results section. | + +--------+ + + + | ECG 12 LEAD | Routin | 02/26/2014 | | Results for this | | | e | 5:22 AM | | procedure are in the | | | | PST | | results section. | + +--------+ + + + | HISTORICAL | Timed | 02/26/2014 | | Results for this | | MICROBIOLOGY RESULT | | 3:36 AM | | procedure are in the | | | | PST | | results section. | + +--------+ + + + | POTASSIUM | Routin | 02/26/2014 | | Results for this | | | e | 12:10 AM | | procedure are in the | | | | PST | | results section. | + +--------+ + + + | POC GLUCOSE | Routin | 02/25/2014 | | Results for this | | | e | 9:45 PM | | procedure are in the | | | | PST | | results section. | + +--------+ + + + | POC GLUCOSE | Routin | 02/25/2014 | | Results for this | | | e | 9:11 PM | | procedure are in the | | | | PST | | results section. | + +--------+ + + + | CULTURE, ANAEROBIC | Routin | 02/25/2014 | | Results for this | | | e | 8:41 PM | | procedure are in the | | | | PST | | results section. | + +--------+ + + + | CULTURE, BLOOD, 2ND | Timed | 02/25/2014 | | Results for this | | SPECIMEN (NON-ORD) | | 7:57 PM | | procedure are in the | | | | PST | | results section. | + +--------+ + + + | CULTURE, BLOOD | Timed | 02/25/2014 | | Results for this | | | | 7:54 PM | | procedure are in the | | | | PST | | results section. | + +--------+ + + + | POC GLUCOSE | Routin | 02/25/2014 | | Results for this | | | e | 7:05 PM | | procedure are in the | | | | PST | | results section. | + +--------+ + + + | TYPE AND SCREEN | Routin | 02/25/2014 | | Results for this | | | e | 6:59 PM | | procedure are in the | | | | PST | | results section. | + +--------+ + + + | EXTERNAL LAB: CBC | Routin | 02/25/2014 | | Results for this | | | e | 6:40 PM | | procedure are in the | | | | PST | | results section. | + +--------+ + + + | SEDIMENTATION RATE, | Routin | 02/25/2014 | | Results for this | | AUTOMATED | e | 6:40 PM | | procedure are in the | | | | PST | | results section. | + +--------+ + + + | C-REACTIVE PROTEIN | Routin | 02/25/2014 | | Results for this | | | e | 6:40 PM | | procedure are in the | | | | PST | | results section. | + +--------+ + + + | HEMOGLOBIN A1C | Routin | 02/25/2014 | | Results for this | | | e | 6:40 PM | | procedure are in the | | | | PST | | results section. | + +--------+ + + + | COMPREHENSIVE | Routin | 02/25/2014 | | Results for this | | METABOLIC PANEL | e | 6:40 PM | | procedure are in the | | | | PST | | results section. | + +--------+ + + + | CULTURE, WOUND, | Timed | 02/25/2014 | | Results for this | | SMEAR, W/ANAEROBE | | 6:35 PM | | procedure are in the | | | | PST | | results section. | + +--------+ + + + | MRSA NAAT | Timed | 02/25/2014 | | Results for this | | | | 6:33 PM | | procedure are in the | | | | PST | | results section. | + +--------+ + + + documented in this encounter Results POC Glucose (03/11/2014 5:23 AM PST) + + + + + + | Component | Value | Ref Range | Performed | Pathologist | | | | | At | Signature | + + + + + + | Glucose, | 122 (H)Comment: Testing | 65 - 99 mg/dL | EXTERNAL | | | Fingerstick | performed at [facility] [place];[address] | | LAB | | | | [address];[place] | | | | | | [address] | | | | + + + + + + + + | Specimen | + + | | + + + +---------+ + + | Performing | Address | City/State/Zipcode | Phone Number | | Organization | | | | + +---------+ + + | EXTERNAL LAB | | | | + +---------+ + + External Lab: CBC (03/11/2014 3:59 AM PST) + + + + + + | Component | Value | Ref Range | Performed | Pathologist | | | | | At | Signature | + + + + + + | WBC | 7.7Comment: Testing | 3.8 - 11.0 K/uL | EXTERNAL | | | | performed at [facility], [address] | | LAB | | | | [address], | | | | | | [place] [address] | | | | + + + + + + | Non- | 2.87 (L)Comment: Testing | 3.70 - 5.10 | EXTERNAL | | | Red Blood | performed at [facility], [address] | M/uL | LAB | | | Cells | [address], | | | | | Counted | [place] [address] | | | | + + + + + + | Hemoglobin | 7.7 (L)Comment: Testing | 11.3 - 15.5 | EXTERNAL | | | | performed at [facility], [address] | g/dL | LAB | | | | [address], | | | | | | [place] [address] | | | | + + + + + + | Hematocrit, | 24.2 (L)Comment: Testing | 34.0 - 46.0 % | EXTERNAL | | | POC | performed at [facility], [address] | | LAB | | | | [address], | | | | | | [place] [address] | | | | + + + + + + | MCV | 84.3Comment: Testing | 80.0 - 100.0 fl | EXTERNAL | | | | performed at [facility], [address] | | LAB | | | [address], | | | | | | [place] [address] | | | | + + + + + + | MCH | 27.0Comment: Testing | 27.0 - 34.0 pg | EXTERNAL | | | | performed at [facility], [address] | | LAB | | | | [address], | | | | | | [place] [address] | | | | + + + + + + | MCHC | 32.0Comment: Testing | 32.0 - 35.5 | EXTERNAL | | | | performed at [facility], [address] | g/dL | LAB | | | | [address], | | | | | | [place] [address] | | | | + + + + + + | RDW-CV | 48.6Comment: Testing | 37 - 53 fl | EXTERNAL | | | | performed at [facility], [address] | | LAB | | | | [address], | | | | | | [place] [address] | | | | + + + + + + | Platelet | 67 (L)Comment: Testing | 150 - 400 K/uL | EXTERNAL | | | Count | performed at [facility], [address] | | LAB | | | Plasma | [place], | | | | | | [place] [address] | | | | + + + + + + | MPV | 10.9Comment: Testing | fl | EXTERNAL | | | | performed at [facility], [address] | | LAB | | | | [address], | | | | | | [place] [address] | | | | + + + + + + | Differentia | AUTOMATEDComment: | | EXTERNAL | | | l Type | Testing performed at | | LAB | | | | [facility], [address] | | | | | | [place] | | | | | | [address] | | | | + + + + + + | % Segmented | 65.2Comment: Testing | % | EXTERNAL | | | | performed at [facility], [address] | | LAB | | | Neutrophils | [address], | | | | | | [place] [address] | | | | + + + + + + | % | 21.8Comment: Testing | % | EXTERNAL | | | Lymphocytes | performed at [facility], [address] | | LAB | | | | [address], | | | | | | [place] [address] | | | | + + + + + + | % Monocytes | 8.8Comment: Testing | % | EXTERNAL | | | | performed at [facility], [address] | | LAB | | | | [address], | | | | | | [place] [address] | | | | + + + + + + | % | 2.6Comment: Testing | % | EXTERNAL | | | Eosinophils | performed at [facility], [address] | | LAB | | | | [address], | | | | | | [place] [address] | | | | + + + + + + | % Basophils | 1.6Comment: Testing | % | EXTERNAL | | | | performed at [facility], [address] | | LAB | | | | [address], | | | | | | [place] [address] | | | | + + + + + + | Absolute | 5.0Comment: Testing | 1.9 - 7.4 K/uL | EXTERNAL | | | Segmented | performed at [facility], [address] | | LAB | | | Neutrophils | [address], | | | | | | [place] [address] | | | | + + + + + + | Absolute | 1.7Comment: Testing | 1.0 - 3.9 K/uL | EXTERNAL | | | Lymphocytes | performed at [facility], [address] | | LAB | | | | [address], | | | | | | [place] [address] | | | | + + + + + + | Absolute | 0.7Comment: Testing | 0 - 0.8 K/uL | EXTERNAL | | | Monocytes | performed at [facility], [address] | | LAB | | | | [address], | | | | | | [place] [address] | | | | + + + + + + | Absolute | 0.2Comment: Testing | 0 - 0.5 K/uL | EXTERNAL | | | Eosinophils | performed at [facility], [address] | | LAB | | | | [address], | | | | | | [place] [address] | | | | + + + + + + | Absolute | 0.1Comment: Testing | 0 - 0.1 K/uL | EXTERNAL | | | Basophils | performed at [facility], [address] | | LAB | | | [address], | | | | | | [place] [address] | | | | + + + + + + + + | Specimen | + + | Blood specimen | | (specimen) | + + + +---------+ + + | Performing | Address | City/State/Zipcode | Phone Number | | Organization | | | | + +---------+ + + | EXTERNAL LAB | | | | + +---------+ + + Phosphorus (03/11/2014 3:59 AM PST) + + + + + + | Component | Value | Ref Range | Performed | Pathologist | | | | | At | Signature | + + + + + + | PHOSPHORUS | 3.4Comment: Testing | 2.3 - 4.8 mg/dL | EXTERNAL | | | | performed at [facility], [address] | | LAB | | | | [address], | | | | | | [place] [address] | | | | + + + + + + + + | Specimen | + + | Blood specimen | | (specimen) | + + + +---------+ + + | Performing | Address | City/State/Zipcode | Phone Number | | Organization | | | | + +---------+ + + | EXTERNAL LAB | | | | + +---------+ + + Magnesium (03/11/2014 3:59 AM PST) + + + + + + | Component | Value | Ref Range | Performed | Pathologist | | | | | At | Signature | + + + + + + | Magnesium | 1.8Comment: Testing | 1.7 - 2.4 mg/dL | EXTERNAL | | | | performed at [facility], [address] | | LAB | | | | [address], | | | | | | [place] [address] | | | | + + + + + + + + | Specimen | + + | Blood specimen | | (specimen) | + + + +---------+ + + | Performing | Address | City/State/Zipcode | Phone Number | | Organization | | | | + +---------+ + + | EXTERNAL LAB | | | | + +---------+ + + Basic Metabolic Panel (03/11/2014 3:59 AM PST) + + + + + + | Component | Value | Ref Range | Performed | Pathologist | | | | | At | Signature | + + + + + + | Na | 139Comment: Testing | 135 - 143 | EXTERNAL | | | | performed at [facility], [address] | mmol/L | LAB | | | | [address], | | | | | | [place] [address] | | | | + + + + + + | K | 3.7Comment: Testing | 3.5 - 4.9 | EXTERNAL | | | | performed at [facility], [address] | mmol/L | LAB | | | | [address], | | | | | | [place] [address] | | | | + + + + + + | Cl | 109Comment: Testing | 99 - 109 mmol/L | EXTERNAL | | | | performed at [facility], [address] | | LAB | | | | [address], | | | | | | [place] [address] | | | | + + + + + + | CO2 | 28Comment: Testing | 23 - 32 mmol/L | EXTERNAL | | | | performed at [facility], [address] | | LAB | | | | [address], | | | | | | [place] [address] | | | | + + + + + + | Anion Gap | 6Comment: Testing | 5 - 20 mmol/L | EXTERNAL | | | | performed at [facility], [address] | | LAB | | | | [address], | | | | | | [place] [address] | | | | + + + + + + | Glucose, | 122 (H)Comment: Testing | 65 - 99 mg/dL | EXTERNAL | | | Fasting | performed at [facility], [address] | | LAB | | | | [address], | | | | | | [place] [address] | | | | + + + + + + | BUN | 7 (L)Comment: Testing | 8 - 25 mg/dL | EXTERNAL | | | | performed at [facility], [address] | | LAB | | | | [address], | | | | | | [place] [address] | | | | + + + + + + | Creatinine | 0.87Comment: Testing | 0.50 - 1.00 | EXTERNAL | | | | performed at [facility], [address] | mg/dL | LAB | | | | [address], | | | | | | [place] [address] | | | | + + + + + + | BUN/Creatin | 8Comment: Testing | | EXTERNAL | | | ine Ratio | performed at [facility], [address] | | LAB | | | | [address], | | | | | | [place] [address] | | | | + + + + + + | Calcium | 7.9 (L)Comment: Testing | 8.5 - 10.2 | EXTERNAL | | | | performed at [facility], [address] | mg/dL | LAB | | | | [address], | | | | | | [place] [address] | | | | + + + + + + | Estimated | >60Comment: GFR <60: | mL/min/1.73m2 | EXTERNAL | | | GFR | CHRONIC KIDNEY DISEASE, | | LAB | | | | IF FOUND OVER A 3 MONTH | | | | | | PERIOD.GFR <15: KIDNEY | | | | | | FAILURE.FOR | | | | | | AMERICANS, MULTIPLY THE | | | | | | CALCULATED GFR BY | | | | | | 1.210.Testing performed | | | | | | at [facility], [address] | | | | | | [address], | | | | | | [place] [address] | | | | + + + + + + + + | Specimen | + + | Blood specimen | | (specimen) | + + + +---------+ + + | Performing | Address | City/State/Zipcode | Phone Number | | Organization | | | | + +---------+ + + | EXTERNAL LAB | | | | + +---------+ + + POC Glucose (03/10/2014 9:26 PM PST) + + + + + + | Component | Value | Ref Range | Performed | Pathologist | | | | | At | Signature | + + + + + + | Glucose, | 171 (H)Comment: Testing | 65 - 99 mg/dL | EXTERNAL | | | Fingerstick | performed at [facility];[address] | | LAB | | | [address];[place], [place] | | | | | | [address] | | | | + + + + + + + + | Specimen | + + | | + + + +---------+ + + | Performing | Address | City/State/Zipcode | Phone Number | | Organization | | | | + +---------+ + + | EXTERNAL LAB | | | | + +---------+ + + POC Glucose (03/10/2014 5:04 PM PST) + + + + + + | Component | Value | Ref Range | Performed | Pathologist | | | | | At | Signature | + + + + + + | Glucose, | 192 (H)Comment: Testing | 65 - 99 mg/dL | EXTERNAL | | | Fingerstick | performed at [facility];[address] | | LAB | | | | [address];[place] | | | | | | [address] | | | | + + + + + + + + | Specimen | + + | | + + + +---------+ + + | Performing | Address | City/State/Zipcode | Phone Number | | Organization | | | | + +---------+ + + | EXTERNAL LAB | | | | + +---------+ + + POC Glucose (03/10/2014 11:40 AM PST) + + + + + + | Component | Value | Ref Range | Performed | Pathologist | | | | | At | Signature | + + + + + + | Glucose, | 183 (H)Comment: Testing | 65 - 99 mg/dL | EXTERNAL | | | Fingerstick | performed at [facility];[address] | | LAB | | | | [address];[place], [place] | | | | | | [address] | | | | + + + + + + + + | Specimen | + + | | + + + +---------+ + + | Performing | Address | City/State/Zipcode | Phone Number | | Organization | | | | + +---------+ + + | EXTERNAL LAB | | | | + +---------+ + + Potassium (03/10/2014 10:01 AM PST) + + + + + + | Component | Value | Ref Range | Performed | Pathologist | | | | | At | Signature | + + + + + + | K | 3.9Comment: Testing | 3.5 - 4.9 | EXTERNAL | | | | performed at [facility];[address] | mmol/L | LAB | | | | [address];[place] | | | | | | [address] | | | | + + + + + + + + | Specimen | + + | Blood specimen | | (specimen) | + + + +---------+ + + | Performing | Address | City/State/Zipcode | Phone Number | | Organization | | | | + +---------+ + + | EXTERNAL LAB | | | | + +---------+ + + POC Glucose (03/10/2014 5:29 AM PST) + + + + + + | Component | Value | Ref Range | Performed | Pathologist | | | | | At | Signature | + + + + + + | Glucose, | 95Comment: Testing | 65 - 99 mg/dL | EXTERNAL | | | Fingerstick | performed at [facility];[address] | | LAB | | | | [address];[place], [place] | | | | | | [address] | | | | + + + + + + + + | Specimen | + + | | + + + +---------+ + + | Performing | Address | City/State/Zipcode | Phone Number | | Organization | | | | + +---------+ + + | EXTERNAL LAB | | | | + +---------+ + + External Lab: DMITRI (03/10/2014 3:24 AM PST) + + + + + + | Component | Value | Ref Range | Performed | Pathologist | | | | | At | Signature | + + + + + + | WBC | 7.3Comment: Testing | 3.8 - 11.0 K/uL | EXTERNAL | | | | performed at [facility], [address] | | LAB | | | | [address], | | | | | | [place] [address] | | | | + + + + + + | Non- | 2.91 (L)Comment: Testing | 3.70 - 5.10 | EXTERNAL | | | Red Blood | performed at [facility], [address] | [address]/uL | LAB | | | Cells | [address], | | | | | Counted | [place] [address] | | | | + + + + + + | Hemoglobin | 7.8 (L)Comment: Testing | 11.3 - 15.5 | EXTERNAL | | | | performed at [facility], [address] | g/dL | LAB | | | | [address], | | | | | | [place] [address] | | | | + + + + + + | Hematocrit, | 24.6 (L)Comment: Testing | 34.0 - 46.0 % | EXTERNAL | | | POC | performed at [facility], [address] | | LAB | | | | [address], | | | | | | [place] [address] | | | | + + + + + + | MCV | 84.6Comment: Testing | 80.0 - 100.0 fl | EXTERNAL | | | | performed at [facility], [address] | | LAB | | | | [address], | | | | | | [place] [address] | | | | + + + + + + | MCH | 26.7 (L)Comment: Testing | 27.0 - 34.0 pg | EXTERNAL | | | | performed at [facility], [address] | | LAB | | | | [address], | | | | | | [place] [address] | | | | + + + + + + | MCHC | 31.6 (L)Comment: Testing | 32.0 - 35.5 | EXTERNAL | | | | performed at [facility], [address] | g/dL | LAB | | | | [address], | | | | | | [place] [address] | | | | + + + + + + | RDW-CV | 49.9Comment: Testing | 37 - 53 fl | EXTERNAL | | | | performed at [facility], [address] | | LAB | | | | [address], | | | | | | [place] [address] | | | | + + + + + + | Platelet | 70 (L)Comment: Testing | 150 - 400 K/uL | EXTERNAL | | | Count | performed at [facility], [address] | | LAB | | | Plasma | [address], | | | | | | [place] [address] | | | | + + + + + + | MPV | 10.4Comment: Testing | fl | EXTERNAL | | | | performed at [facility], [address] | | LAB | | | | [address], | | | | | | [place] [address] | | | | + + + + + + | Differentia | AUTOMATEDComment: | | EXTERNAL | | | l Type | Testing performed at | | LAB | | | | [facility], [address] | | | | | | [place] | | | | | | [address] | | | | + + + + + + | % Segmented | 61.8Comment: Testing | % | EXTERNAL | | | | performed at [facility], [address] | | LAB | | | Neutrophils | [address], | | | | | | [place] [address] | | | | + + + + + + | % | 24.5Comment: Testing | % | EXTERNAL | | | Lymphocytes | performed at [facility], [address] | | LAB | | | | [address], | | | | | | [place] [address] | | | | + + + + + + | % Monocytes | 9.6Comment: Testing | % | EXTERNAL | | | | performed at [facility], [address] | | LAB | | | | [address], | | | | | | [place] [address] | | | | + + + + + + | % | 2.7Comment: Testing | % | EXTERNAL | | | Eosinophils | performed at [facility], [address] | | LAB | | | | [address], | | | | | | [place] [address] | | | | + + + + + + | % Basophils | 1.4Comment: Testing | % | EXTERNAL | | | | performed at [facility], [address] | | LAB | | | | [address], | | | | | | [place] [address] | | | | + + + + + + | Absolute | 4.5Comment: Testing | 1.9 - 7.4 K/uL | EXTERNAL | | | Segmented | performed at [facility], [address] | | LAB | | | Neutrophils | [address], | | | | | | [place] [address] | | | | + + + + + + | Absolute | 1.8Comment: Testing | 1.0 - 3.9 K/uL | EXTERNAL | | | Lymphocytes | performed at [facility], [address] | | LAB | | | | [address], | | | | | | [place] [address] | | | | + + + + + + | Absolute | 0.7Comment: Testing | 0 - 0.8 K/uL | EXTERNAL | | | Monocytes | performed at [facility], [address] | | LAB | | | | [address], | | | | | | [place] [address] | | | | + + + + + + | Absolute | 0.2Comment: Testing | 0 - 0.5 K/uL | EXTERNAL | | | Eosinophils | performed at [facility], [address] | | LAB | | | | [address], | | | | | | [place] [address] | | | | + + + + + + | Absolute | 0.1Comment: Testing | 0 - 0.1 K/uL | EXTERNAL | | | Basophils | performed at [facility], [address] | | LAB | | | | [address], | | | | | | [place] [address] | | | | + + + + + + + + | Specimen | + + | Blood specimen | | (specimen) | + + + +---------+ + + | Performing | Address | City/State/Zipcode | Phone Number | | Organization | | | | + +---------+ + + | EXTERNAL LAB | | | | + +---------+ + + Phosphorus (03/10/2014 3:24 AM PST) + + + + + + | Component | Value | Ref Range | Performed | Pathologist | | | | | At | Signature | + + + + + + | PHOSPHORUS | 4.1Comment: Testing | 2.3 - 4.8 mg/dL | EXTERNAL | | | | performed at [facility], [address] | | LAB | | | | [address], | | | | | | [place] [address] | | | | + + + + + + + + | Specimen | + + | | + + + +---------+ + + | Performing | Address | City/State/Zipcode | Phone Number | | Organization | | | | + +---------+ + + | EXTERNAL LAB | | | | + +---------+ + + Magnesium (03/10/2014 3:24 AM PST) + + + + + + | Component | Value | Ref Range | Performed | Pathologist | | | | | At | Signature | + + + + + + | Magnesium | 1.8Comment: Testing | 1.7 - 2.4 mg/dL | EXTERNAL | | | | performed at [facility], [address] | | LAB | | | | [address], | | | | | | [place] [address] | | | | + + + [...] + +---------+ + + Comprehensive Metabolic Panel (03/10/2014 3:24 AM PST) + + + + + + | Component | Value | Ref Range | Performed | Pathologist | | | | | At | Signature | + + + + + + | Na | 141Comment: Testing | 135 - 143 | EXTERNAL | | | | performed at [facility], [address] | mmol/L | LAB | | | | [address], | | | | | | [place] [address] | | | | + + + + + + | K | 3.6Comment: Testing | 3.5 - 4.9 | EXTERNAL | | | | performed at [facility], [address] | mmol/L | LAB | | | | [address], | | | | | | [place] [address] | | | | + + + + + + | Cl | 109Comment: Testing | 99 - 109 mmol/L | EXTERNAL | | | | performed at [facility], [address] | | LAB | | | | [address], | | | | | | [place] [address] | | | | + + + + + + | CO2 | 26Comment: Testing | 23 - 32 mmol/L | EXTERNAL | | | | performed at [facility], [address] | | LAB | | | | [address], | | | | | | [place] [address] | | | | + + + + + + | Anion Gap | 10Comment: Testing | 5 - 20 mmol/L | EXTERNAL | | | | performed at [facility], [address] | | LAB | | | [address], | | | | | | [place] [address] | | | | + + + + + + | Glucose, | 106 (H)Comment: Testing | 65 - 99 mg/dL | EXTERNAL | | | Fasting | performed at [facility], [address] | | LAB | | | | [address], | | | | | | [place] [address] | | | | + + + + + + | BUN | 6 (L)Comment: Testing | 8 - 25 mg/dL | EXTERNAL | | | | performed at [facility], [address] | | LAB | | | [address], | | | | | | [place] [address] | | | | + + + + + + | Creatinine | 0.74Comment: Testing | 0.50 - 1.00 | EXTERNAL | | | | performed at [facility], [address] | mg/dL | LAB | | | | [address], | | | | | | [place] [address] | | | | + + + + + + | BUN/Creatin | 8Comment: Testing | | EXTERNAL | | | ine Ratio | performed at [facility], [address] | | LAB | | | | [address], | | | | | | [place] [address] | | | | + + + + + + | Calcium | 7.8 (L)Comment: Testing | 8.5 - 10.2 | EXTERNAL | | | | performed at [facility], [address] | mg/dL | LAB | | | | [address], | | | | | | [place] [address] | | | | + + + + + + | Protein, | 5.6 (L)Comment: Testing | 6.3 - 8.2 g/dL | EXTERNAL | | | Total | performed at [facility], [address] | | LAB | | | | [address], | | | | | | [place] [address] | | | | + + + + + + | Albumin | 2.2 (L)Comment: Testing | 3.6 - 5.0 g/dL | EXTERNAL | | | | performed at [facility], [address] | | LAB | | | | [address], | | | | | | [place] [address] | | | | + + + + + + | Globulin | 3.4Comment: Testing | 1.3 - 4.9 g/dL | EXTERNAL | | | | performed at [facility], [address] | | LAB | | | | [address], | | | | | | [place] [address] | | | | + + + + + + | A/G Ratio | 0.6 (L)Comment: Testing | 1.0 - 2.4 | EXTERNAL | | | | performed at [facility], [address] | | LAB | | | | [address], | | | | | | [place] [address] | | | | + + + + + + | Bilirubin | 0.4Comment: Testing | 0.1 - 1.5 mg/dL | EXTERNAL | | | Total | performed at [facility], [address] | | LAB | | | [address], | | | | | | [place] [address] | | | | + + + + + + | ALP, | 99Comment: Testing | 35 - 115 U/L | EXTERNAL | | | External | performed at [facility], [address] | | LAB | | | | [address], | | | | | | [place] [address] | | | | + + + + + + | AST | 15Comment: Testing | 10 - 45 U/L | EXTERNAL | | | | performed at [facility], [address] | | LAB | | | | [address], | | | | | | [place] [address] | | | | + + + + + + | ALT | 7 (L)Comment: Testing | 10 - 65 U/L | EXTERNAL | | | | performed at [facility], [address] | | LAB | | | | [address], | | | | | | [place] [address] | | | | + + + + + + | Estimated | >60Comment: GFR <60: | mL/min/1.73m2 | EXTERNAL | | | GFR | CHRONIC KIDNEY DISEASE, | | LAB | | | | IF FOUND OVER A 3 MONTH | | | | | | PERIOD.GFR <15: KIDNEY | | | | | | FAILURE.FOR | | | | | | AMERICANS, MULTIPLY THE | | | | | | CALCULATED GFR BY | | | | | | 1.210.Testing performed | | | | | | at [facility], [address] | | | | | | [address], | | | | | | [place] [address] | | | | + + + + + + + + | Specimen | + + | Blood specimen | | (specimen) | + + + +---------+ + + | Performing | Address | City/State/Zipcode | Phone Number | | Organization | | | | + +---------+ + + | EXTERNAL LAB | | | | + +---------+ + + POC Glucose (03/09/2014 8:38 PM PST) + + + + + + | Component | Value | Ref Range | Performed | Pathologist | | | | | At | Signature | + + + + + + | Glucose, | 197 (H)Comment: Testing | 65 - 99 mg/dL | EXTERNAL | | | Fingerstick | performed at [facility];[address] | | LAB | | | | [address];[place] | | | | | | [address] | | | | + + + + + + + + | Specimen | + + | | + + + +---------+ + + | Performing | Address | City/State/Zipcode | Phone Number | | Organization | | | | + +---------+ + + | EXTERNAL LAB | | | | + +---------+ + + POC Glucose (03/09/2014 3:12 PM PST) + + + + + + | Component | Value | Ref Range | Performed | Pathologist | | | | | At | Signature | + + + + + + | Glucose, | 137 (H)Comment: Testing | 65 - 99 mg/dL | EXTERNAL | | | Fingerstick | performed at [facility];[address] | | LAB | | | | [address];[place] | | | | | | [address] | | | | + + + + + + + + | Specimen | + + | | + + + +---------+ + + | Performing | Address | City/State/Zipcode | Phone Number | | Organization | | | | + +---------+ + + | EXTERNAL LAB | | | | + +---------+ + + POC Glucose (03/09/2014 11:11 AM PST) + + + + + + | Component | Value | Ref Range | Performed | Pathologist | | | | | At | Signature | + + + + + + | Glucose, | 153 (H)Comment: Testing | 65 - 99 mg/dL | EXTERNAL | | | Fingerstick | performed at [facility];[address] | | LAB | | | | [address];[place] | | | | | | [address] | | | | + + + + + + + + | Specimen | + + | | + + + +---------+ + + | Performing | Address | City/State/Zipcode | Phone Number | | Organization | | | | + +---------+ + + | EXTERNAL LAB | | | | + +---------+ + + POC Glucose (03/09/2014 5:59 AM PST) + + + + + + | Component | Value | Ref Range | Performed | Pathologist | | | | | At | Signature | + + + + + + | Glucose, | 72Comment: Testing | 65 - 99 mg/dL | EXTERNAL | | | Fingerstick | performed at [facility];[address] | | LAB | | | | [address];[place] | | | | | | [address] | | | | + + + + + + + + | Specimen | + + | | + + + +---------+ + + | Performing | Address | City/State/Zipcode | Phone Number | | Organization | | | | + +---------+ + + | EXTERNAL LAB | | | | + +---------+ + + Phosphorus (03/09/2014 3:31 AM PST) + + + + + + | Component | Value | Ref Range | Performed | Pathologist | | | | | At | Signature | + + + + + + | PHOSPHORUS | 4.1Comment: Testing | 2.3 - 4.8 mg/dL | EXTERNAL | | | | performed at [facility], [address] | | LAB | | | | [address], | | | | | | [place] [address] | | | | + + + + + + + + | Specimen | + + | Blood specimen | | (specimen) | + + + +---------+ + + | Performing | Address | City/State/Zipcode | Phone Number | | Organization | | | | + +---------+ + + | EXTERNAL LAB | | | | + +---------+ + + Magnesium (03/09/2014 3:31 AM PST) + + + + + + | Component | Value | Ref Range | Performed | Pathologist | | | | | At | Signature | + + + + + + | Magnesium | 1.8Comment: Testing | 1.7 - 2.4 mg/dL | EXTERNAL | | | | performed at [facility], [address] | | LAB | | | | [facility], | | | | | | [place] [address] | | | | + + + + + + + + | Specimen | + + | Blood specimen | | (specimen) | + + + +---------+ + + | Performing | Address | City/State/Zipcode | Phone Number | | Organization | | | | + +---------+ + + | EXTERNAL LAB | | | | + +---------+ + + External Lab: Occult Blood, Screening (03/08/2014 10:53 PM PST) + + | Specimen | + + | Stool specimen | | (specimen) | + + + + + | Narrative | Performed At | + + + | Fecal Occult Blood NEGATIVE Testing | EXTERNAL LAB | | performed at [facility];[address] [place] [address];[place] [address] | | + + + + +---------+ + + | Performing | Address | City/State/Zipcode | Phone Number | | Organization | | | | + +---------+ + + | EXTERNAL LAB | | | | + +---------+ + + POC Glucose (03/08/2014 9:31 PM PST) + + + + + + | Component | Value | Ref Range | Performed | Pathologist | | | | | At | Signature | + + + + + + | Glucose, | 151 (H)Comment: Testing | 65 - 99 mg/dL | EXTERNAL | | | Fingerstick | performed at [facility];[address] | | LAB | | | | [address];[place], [place] | | | | | | [address] | | | | + + + + + + + + | Specimen | + + | | + + + +---------+ + + | Performing | Address | City/State/Zipcode | Phone Number | | Organization | | | | + +---------+ + + | EXTERNAL LAB | | | | + +---------+ + + POC Glucose (03/08/2014 4:33 PM PST) + + + + + + | Component | Value | Ref Range | Performed | Pathologist | | | | | At | Signature | + + + + + + | Glucose, | 125 (H)Comment: Testing | 65 - 99 mg/dL | EXTERNAL | | | Fingerstick | performed at [facility];[address];[place], [place] | | | | | | [address] | | | | + + + + + + + + | Specimen | + + | | + + + +---------+ + + | Performing | Address | City/State/Zipcode | Phone Number | | Organization | | | | + +---------+ + + | EXTERNAL LAB | | | | + +---------+ + + POC Glucose (03/08/2014 12:14 PM PST) + + + + + + | Component | Value | Ref Range | Performed | Pathologist | | | | | At | Signature | + + + + + + | Glucose, | 131 (H)Comment: Testing | 65 - 99 mg/dL | EXTERNAL | | | Fingerstick | performed at [facility];[address];[place], [place] | | | | | | [address] | | | | + + + + + + + + | Specimen | + + | | + + + +---------+ + + | Performing | Address | City/State/Zipcode | Phone Number | | Organization | | | | + +---------+ + + | EXTERNAL LAB | | | | + +---------+ + + Vancomycin, Trough (03/08/2014 11:07 AM PST) + + + + + + | Component | Value | Ref Range | Performed | Pathologist | | | | | At | Signature | + + + + + + | Vancomycin | 16.3Comment: 15 to 20 | 10 - 20 ug/mL | EXTERNAL | | | Trough | ug/mL for meningitis, | | LAB | | | | osteomyelitis, | | | | | | endocarditis, sepsis, or | | | | | | healthcare associated | | | | | | pneumonia, or an KEN | | | | | | equal to or greater than | | | | | | 1.0 ug/mLTesting | | | | | | performed at [facility] | | | | | | [address];[place], [place] | | | | | | [address] | | | | + + + + + + + + | Specimen | + + | Blood specimen | | (specimen) | + + + +---------+ + + | Performing | Address | City/State/Zipcode | Phone Number | | Organization | | | | + +---------+ + + | EXTERNAL LAB | | | | + +---------+ + + POC Glucose (03/08/2014 5:30 AM PST) + + + + + + | Component | Value | Ref Range | Performed | Pathologist | | | | | At | Signature | + + + + + + | Glucose, | 75Comment: Testing | 65 - 99 mg/dL | EXTERNAL | | | Fingerstick | performed at [facility];[address] | | LAB | | | | [address];[place], [place] | | | | | | [address] | | | | + + + + + + + + | Specimen | + + | | + + + +---------+ + + | Performing | Address | City/State/Zipcode | Phone Number | | Organization | | | | + +---------+ + + | EXTERNAL LAB | | | | + +---------+ + + External Lab: CBC (03/08/2014 4:26 AM PST) + + + + + + | Component | Value | Ref Range | Performed | Pathologist | | | | | At | Signature | + + + + + + | WBC | 7.4Comment: Testing | 3.8 - 11.0 K/uL | EXTERNAL | | | | performed at [facility], [address] | | LAB | | | | [address], | | | | | | [place] [address] | | | | + + + + + + | Non- | 2.95 (L)Comment: Testing | 3.70 - 5.10 | EXTERNAL | | | Red Blood | performed at [facility], [address] | [address]L | LAB | | | Cells | [address], | | | | | Counted | [place] [address] | | | | + + + + + + | Hemoglobin | 7.9 (L)Comment: Testing | 11.3 - 15.5 | EXTERNAL | | | | performed at [facility], [address] | g/dL | LAB | | | | [address], | | | | | | [place] [address] | | | | + + + + + + | Hematocrit, | 24.5 (L)Comment: Testing | 34.0 - 46.0 % | EXTERNAL | | | POC | performed at [facility], [address] | | LAB | | | | [address], | | | | | | [place] [address] | | | | + + + + + + | MCV | 83.0Comment: Testing | 80.0 - 100.0 fl | EXTERNAL | | | | performed at [facility], [address] | | LAB | | | | [address], | | | | | | [place] [address] | | | | + + + + + + | MCH | 26.8 (L)Comment: Testing | 27.0 - 34.0 pg | EXTERNAL | | | | performed at [facility], [address] | | LAB | | | | [address], | | | | | | [place] [address] | | | | + + + + + + | MCHC | 32.3Comment: Testing | 32.0 - 35.5 | EXTERNAL | | | | performed at [facility], [address] | g/dL | LAB | | | | [address], | | | | | | [place] [address] | | | | + + + + + + | RDW-CV | 48.1Comment: Testing | 37 - 53 fl | EXTERNAL | | | | performed at [facility], [address] | | LAB | | | | [address], | | | | | | [place] [address] | | | | + + + + + + | Platelet | 82 (L)Comment: Testing | 150 - 400 K/uL | EXTERNAL | | | Count | performed at [facility], [address] | | LAB | | | Plasma | [address], | | | | | | [place] [address] | | | | + + + + + + | MPV | 11.0Comment: Testing | fl | EXTERNAL | | | | performed at [facility], [address] | | LAB | | | | [address], | | | | | | [place] [address] | | | | + + + + + + | Differentia | AUTOMATEDComment: | | EXTERNAL | | | l Type | Testing performed at | | LAB | | | | [facility], [address] | | | | | | [place] | | | | | | [address] | | | | + + + + + + | % Segmented | 71.2Comment: Testing | % | EXTERNAL | | | | performed at [facility], [address] | | LAB | | | Neutrophils | [address], | | | | | | [place] [address] | | | | + + + + + + | % | 16.1Comment: Testing | % | EXTERNAL | | | Lymphocytes | performed at [facility], [address] | | LAB | | | | [address], | | | | | | [place], [place] [address] | | | | + + + + + + | % Monocytes | 9.5Comment: Testing | % | EXTERNAL | | | | performed at [facility], [address] | | LAB | | | | [address], | | | | | | [place] [address] | | | | + + + + + + | % | 2.2Comment: Testing | % | EXTERNAL | | | Eosinophils | performed at [facility], [address] | | LAB | | | | [address], | | | | | | [place] [address] | | | | + + + + + + | % Basophils | 1.0Comment: Testing | % | EXTERNAL | | | | performed at [facility], [address] | | LAB | | | | [address], | | | | | | [place] [address] | | | | + + + + + + | Absolute | 5.2Comment: Testing | 1.9 - 7.4 K/uL | EXTERNAL | | | Segmented | performed at [facility], [address] | | LAB | | | Neutrophils | [address], | | | | | | [place] [address] | | | | + + + + + + | Absolute | 1.2Comment: Testing | 1.0 - 3.9 K/uL | EXTERNAL | | | Lymphocytes | performed at [facility], [address] | | LAB | | | | [address], | | | | | | [place] [address] | | | | + + + + + + | Absolute | 0.7Comment: Testing | 0 - 0.8 K/uL | EXTERNAL | | | Monocytes | performed at [facility], [address] | | LAB | | | | [address], | | | | | | [place] [address] | | | | + + + + + + | Absolute | 0.2Comment: Testing | 0 - 0.5 K/uL | EXTERNAL | | | Eosinophils | performed at [facility], [address] | | LAB | | | | [address], | | | | | | [place] [address] | | | | + + + + + + | Absolute | 0.1Comment: Testing | 0 - 0.1 K/uL | EXTERNAL | | | Basophils | performed at [facility], [address] | | LAB | | | | [address], | | | | | | [place] [address] | | | | + + + + + + + + | Specimen | + + | Blood specimen | | (specimen) | + + + +---------+ + + | Performing | Address | City/State/Zipcode | Phone Number | | Organization | | | | + +---------+ + + | EXTERNAL LAB | | | | + +---------+ + + Phosphorus (03/08/2014 4:26 AM PST) + + + + + + | Component | Value | Ref Range | Performed | Pathologist | | | | | At | Signature | + + + + + + | PHOSPHORUS | 4.1Comment: Testing | 2.3 - 4.8 mg/dL | EXTERNAL | | | | performed at [facility], [address] | | LAB | | | | [address], | | | | | | [place] [address] | | | | + + + + + + + + | Specimen | + + | Blood specimen | | (specimen) | + + + +---------+ + + | Performing | Address | City/State/Zipcode | Phone Number | | Organization | | | | + +---------+ + + | EXTERNAL LAB | | | | + +---------+ + + Magnesium (03/08/2014 4:26 AM PST) + + + + + + | Component | Value | Ref Range | Performed | Pathologist | | | | | At | Signature | + + + + + + | Magnesium | 1.8Comment: Testing | 1.7 - 2.4 mg/dL | EXTERNAL | | | | performed at [facility], [address] | | LAB | | | | [address], | | | | | | [place] [address] | | | | + + + [...] + +---------+ + + Comprehensive Metabolic Panel (03/08/2014 4:26 AM PST) + + + + + + | Component | Value | Ref Range | Performed | Pathologist | | | | | At | Signature | + + + + + + | Na | 141Comment: Testing | 135 - 143 | EXTERNAL | | | | performed at [facility], [address] | mmol/L | LAB | | | | [address], | | | | | | [place] [address] | | | | + + + + + + | K | 3.3 (L)Comment: Testing | 3.5 - 4.9 | EXTERNAL | | | | performed at [facility], [address] | mmol/L | LAB | | | | [address], | | | | | | [place] [address] | | | | + + + + + + | Cl | 107Comment: Testing | 99 - 109 mmol/L | EXTERNAL | | | | performed at [facility], [address] | | LAB | | | | [address], | | | | | | [place] [address] | | | | + + + + + + | CO2 | 31Comment: Testing | 23 - 32 mmol/L | EXTERNAL | | | | performed at [facility], [address] | | LAB | | | | [address], | | | | | | [place] [address] | | | | + + + + + + | Anion Gap | 6Comment: Testing | 5 - 20 mmol/L | EXTERNAL | | | | performed at [facility], [address] | | LAB | | | | [address], | | | | | | [place] [address] | | | | + + + + + + | Glucose, | 88Comment: Testing | 65 - 99 mg/dL | EXTERNAL | | | Fasting | performed at [facility], [address] | | LAB | | | | [address], | | | | | | [place] [address] | | | | + + + + + + | BUN | 4 (L)Comment: Testing | 8 - 25 mg/dL | EXTERNAL | | | | performed at [facility], [address] | | LAB | | | | [address], | | | | | | [place] [address] | | | | + + + + + + | Creatinine | 0.74Comment: Testing | 0.50 - 1.00 | EXTERNAL | | | | performed at [facility], [address] | mg/dL | LAB | | | | [address], | | | | | | [place] [address] | | | | + + + + + + | BUN/Creatin | 5Comment: Testing | | EXTERNAL | | | ine Ratio | performed at [facility], [address] | | LAB | | | | [address], | | | | | | [place] [address] | | | | + + + + + + | Calcium | 7.8 (L)Comment: Testing | 8.5 - 10.2 | EXTERNAL | | | | performed at [facility], [address] | mg/dL | LAB | | | | [address], | | | | | | [place] [address] | | | | + + + + + + | Protein, | 5.7 (L)Comment: Testing | 6.3 - 8.2 g/dL | EXTERNAL | | | Total | performed at [facility], [address] | | LAB | | | | [address], | | | | | | [place] [address] | | | | + + + + + + | Albumin | 2.1 (L)Comment: Testing | 3.6 - 5.0 g/dL | EXTERNAL | | | | performed at [facility], [address] | | LAB | | | | [address], | | | | | | [place] [address] | | | | + + + + + + | Globulin | 3.6Comment: Testing | 1.3 - 4.9 g/dL | EXTERNAL | | | | performed at [facility], [address] | | LAB | | | | [address], | | | | | | [place] [address] | | | | + + + + + + | A/G Ratio | 0.6 (L)Comment: Testing | 1.0 - 2.4 | EXTERNAL | | | | performed at [facility], [address] | | LAB | | | | [address], | | | | | | [place] [address] | | | | + + + + + + | Bilirubin | 0.4Comment: Testing | 0.1 - 1.5 mg/dL | EXTERNAL | | | Total | performed at [facility], [address] | | LAB | | | | [address], | | | | | | [place] [address] | | | | + + + + + + | ALP, | 104Comment: Testing | 35 - 115 U/L | EXTERNAL | | | External | performed at [facility], [address] | | LAB | | | | [address], | | | | | | [place] [address] | | | | + + + + + + | AST | 14Comment: Testing | 10 - 45 U/L | EXTERNAL | | | | performed at [facility], [address] | | LAB | | | | [address], | | | | | | [place] [address] | | | | + + + + + + | ALT | 7 (L)Comment: Testing | 10 - 65 U/L | EXTERNAL | | | | performed at [facility], [address] | | LAB | | | | [address], | | | | | | [place] [address] | | | | + + + + + + | Estimated | >60Comment: GFR <60: | mL/min/1.73m2 | EXTERNAL | | | GFR | CHRONIC KIDNEY DISEASE, | | LAB | | | | IF FOUND OVER A 3 MONTH | | | | | | PERIOD.GFR <15: KIDNEY | | | | | | FAILURE.FOR | | | | | | AMERICANS, MULTIPLY THE | | | | | | CALCULATED GFR BY | | | | | | 1.210.Testing performed | | | | | | at [facility], [address] | | | | | | [address], | | | | | | [place] [address] | | | | + + + + + + + + | Specimen | + + | Blood specimen | | (specimen) | + + + +---------+ + + | Performing | Address | City/State/Zipcode | Phone Number | | Organization | | | | + +---------+ + + | EXTERNAL LAB | | | | + +---------+ + + POC Glucose (03/07/2014 9:33 PM PST) + + + + + + | Component | Value | Ref Range | Performed | Pathologist | | | | | At | Signature | + + + + + + | Glucose, | 103 (H)Comment: Testing | 65 - 99 mg/dL | EXTERNAL | | | Fingerstick | performed at [facility];[address] | | LAB | | | | [address];[place], [place] | | | | | | [address] | | | | + + + + + + + + | Specimen | + + | | + + + +---------+ + + | Performing | Address | City/State/Zipcode | Phone Number | | Organization | | | | + +---------+ + + | EXTERNAL LAB | | | | + +---------+ + + POC Glucose (03/07/2014 4:10 PM PST) + + + + + + | Component | Value | Ref Range | Performed | Pathologist | | | | | At | Signature | + + + + + + | Glucose, | 194 (H)Comment: Testing | 65 - 99 mg/dL | EXTERNAL | | | Fingerstick | performed at [facility];[address] | | LAB | | | [address];[place], [place] | | | | | | [address] | | | | + + + + + + + + | Specimen | + + | | + + + +---------+ + + | Performing | Address | City/State/Zipcode | Phone Number | | Organization | | | | + +---------+ + + | EXTERNAL LAB | | | | + +---------+ + + POC Glucose (03/07/2014 11:23 AM PST) + + + + + + | Component | Value | Ref Range | Performed | Pathologist | | | | | At | Signature | + + + + + + | Glucose, | 134 (H)Comment: Testing | 65 - 99 mg/dL | EXTERNAL | | | Fingerstick | performed at [facility];[address] | | LAB | | | | [address];[place] | | | | | | [address] | | | | + + + + + + + + | Specimen | + + | | + + + +---------+ + + | Performing | Address | City/State/Zipcode | Phone Number | | Organization | | | | + +---------+ + + | EXTERNAL LAB | | | | + +---------+ + + POC Glucose (03/07/2014 11:05 AM PST) + + + + + + | Component | Value | Ref Range | Performed | Pathologist | | | | | At | Signature | + + + + + + | Glucose, | 132 (H)Comment: Testing | 65 - 99 mg/dL | EXTERNAL | | | Fingerstick | performed at [facility];[address] | | LAB | | | | [address];[place], [place] | | | | | | [address] | | | | + + + + + + + + | Specimen | + + | | + + + +---------+ + + | Performing | Address | City/State/Zipcode | Phone Number | | Organization | | | | + +---------+ + + | EXTERNAL LAB | | | | + +---------+ + + Prealbumin (03/07/2014 10:33 AM PST) + + + + + + | Component | Value | Ref Range | Performed | Pathologist | | | | | At | Signature | + + + + + + | Prealbumin | 7.6 (L)Comment: Testing | 20.0 - 40.0 | EXTERNAL | | | | performed at [facility], [address] | mg/dL | LAB | | | | [address], | | | | | | [place] [address] | | | | + + + + + + + + | Specimen | + + | Blood specimen | | (specimen) | + + + +---------+ + + | Performing | Address | City/State/Zipcode | Phone Number | | Organization | | | | + +---------+ + + | EXTERNAL LAB | | | | + +---------+ + + Vancomycin, Trough (03/07/2014 6:32 AM PST) + + + + + + | Component | Value | Ref Range | Performed | Pathologist | | | | | At | Signature | + + + + + + | Vancomycin | 19.3Comment: 15 to 20 | 10 - 20 ug/mL | EXTERNAL | | | Trough | ug/mL for meningitis, | | LAB | | | | osteomyelitis, | | | | | | endocarditis, sepsis, or | | | | | | healthcare associated | | | | | | pneumonia, or an KEN | | | | | | equal to or greater than | | | | | | 1.0 ug/mLTesting | | | | | | performed at [facility] | | | | | | [facility];[place], [place] | | | | | | [address] | | | | + + + + + + + + | Specimen | + + | Blood specimen | | (specimen) | + + + +---------+ + + | Performing | Address | City/State/Zipcode | Phone Number | | Organization | | | | + +---------+ + + | EXTERNAL LAB | | | | + +---------+ + + POC Glucose (03/07/2014 5:45 AM PST) + + + + + + | Component | Value | Ref Range | Performed | Pathologist | | | | | At | Signature | + + + + + + | Glucose, | 120 (H)Comment: Testing | 65 - 99 mg/dL | EXTERNAL | | | Fingerstick | performed at [facility];[address] | | LAB | | | | [address];[place], [place] | | | | | | [address] | | | | + + + + + + + + | Specimen | + + | | + + + +---------+ + + | Performing | Address | City/State/Zipcode | Phone Number | | Organization | | | | + +---------+ + + | EXTERNAL LAB | | | | + +---------+ + + External Lab: CBC (03/07/2014 4:15 AM PST) + + + + + + | Component | Value | Ref Range | Performed | Pathologist | | | | | At | Signature | + + + + + + | WBC | 8.7Comment: Testing | 3.8 - 11.0 K/uL | EXTERNAL | | | | performed at [facility], [address] | | LAB | | | | [address], | | | | | | [place] [address] | | | | + + + + + + | Non- | 3.09 (L)Comment: Testing | 3.70 - 5.10 | EXTERNAL | | | Red Blood | performed at [facility], [address] | M/uL | LAB | | | Cells | [address], | | | | | Counted | [place] [address] | | | | + + + + + + | Hemoglobin | 8.2 (L)Comment: Testing | 11.3 - 15.5 | EXTERNAL | | | | performed at [facility], [address] | g/dL | LAB | | | | [address], | | | | | | [place] [address] | | | | + + + + + + | Hematocrit, | 25.7 (L)Comment: Testing | 34.0 - 46.0 % | EXTERNAL | | | POC | performed at [facility], [address] | | LAB | | | | [address], | | | | | | [place] [address] | | | | + + + + + + | MCV | 83.4Comment: Testing | 80.0 - 100.0 fl | EXTERNAL | | | | performed at [facility], [address] | | LAB | | | | [address], | | | | | | [place] [address] | | | | + + + + + + | MCH | 26.7 (L)Comment: Testing | 27.0 - 34.0 pg | EXTERNAL | | | | performed at [facility], [address] | | LAB | | | | [address], | | | | | | [place] [address] | | | | + + + + + + | MCHC | 32.1Comment: Testing | 32.0 - 35.5 | EXTERNAL | | | | performed at [facility], [address] | g/dL | LAB | | | | [address], | | | | | | [place] [address] | | | | + + + + + + | RDW-CV | 47.7Comment: Testing | 37 - 53 fl | EXTERNAL | | | | performed at [facility], [address] | | LAB | | | | [address], | | | | | | [place] [address] | | | | + + + + + + | Platelet | 72 (L)Comment: Testing | 150 - 400 K/uL | EXTERNAL | | | Count | performed at [facility], [address] | | LAB | | | Plasma | [address], | | | | | | [place] [address] | | | | + + + + + + | MPV | 10.4Comment: Testing | fl | EXTERNAL | | | | performed at [facility], [address] | | LAB | | | | [address], | | | | | | [place], [place] [address] | | | | + + + + + + | Differentia | MANUALComment: Testing | | EXTERNAL | | | l Type | performed at [facility], [address] | | LAB | | | | [address], | | | | | | [place], [place] [address] | | | | + + + + + + | Segmented | 79Comment: Testing | % | EXTERNAL | | | Neutrophils | performed at [facility], [address] | | LAB | | | Manual | [address], | | | | | | [place] [address] | | | | + + + + + + | % Bands | 5Comment: Testing | % | EXTERNAL | | | | performed at [facility], [address] | | LAB | | | | [address], | | | | | | [place] [address] | | | | + + + + + + | % | 1Comment: Testing | % | EXTERNAL | | | Metamyelocy | performed at [facility], [address] | | LAB | | | [address] | [address], | | | | | | [place] [address] | | | | + + + + + + | Lymphocytes | 10Comment: Testing | % | EXTERNAL | | | Manual | performed at [facility], [address] | | LAB | | | | [address], | | | | | | [place] [address] | | | | + + + + + + | Monocytes | 3Comment: Testing | % | EXTERNAL | | | Manual | performed at [facility], [address] | | LAB | | | | [address], | | | | | | [place] [address] | | | | + + + + + + | Eosinophils | 2Comment: Testing | % | EXTERNAL | | | Manual | performed at [facility], [address] | | LAB | | | | [address], | | | | | | [place] [address] | | | | + + + + + + | Absolute | 6.8Comment: Testing | 1.9 - 7.4 K/uL | EXTERNAL | | | Neutrophils | performed at [facility], [address] | | LAB | | | | [address], | | | | | | [place] [address] | | | | + + + + + + | Bands | 0.4 (H)Comment: Testing | 0 - 0.2 K/uL | EXTERNAL | | | Manual | performed at [facility], [address] | | LAB | | | | [address], | | | | | | [place] [address] | | | | + + + + + + | Absolute | 0.1 (H)Comment: Testing | K/uL | EXTERNAL | | | Metamyelocy | performed at [facility], [address] | | LAB | | | [address] | [address], | | | | | | [place] [address] | | | | + + + + + + | Absolute | 0.9 (L)Comment: Testing | 1.0 - 3.9 K/uL | EXTERNAL | | | Lymphocytes | performed at [facility], [address] | | LAB | | | | [address], | | | | | | [place], [place] [address] | | | | + + + + + + | Absolute | 0.3Comment: Testing | 0 - 0.8 K/uL | EXTERNAL | | | Monocytes | performed at [facility], [address] | | LAB | | | | [address], | | | | | | [place] [address] | | | | + + + + + + | Absolute | 0.2Comment: Testing | 0 - 0.5 K/uL | EXTERNAL | | | Eosinophils | performed at [facility], [address] | | LAB | | | | [address], | | | | | | [place] [address] | | | | + + + + + + | RBC | RBC AND PLT MORPHOLOGY | | EXTERNAL | | | Morphology | APPEAR NORMALComment: | | LAB | | | | Testing performed at | | | | | | [facility], [address] [facility] [place]) | | | | | | [place] | | | | | | [address] | | | | + + + + + + + + | Specimen | + + | Blood specimen | | (specimen) | + + + +---------+ + + | Performing | Address | City/State/Zipcode | Phone Number | | Organization | | | | + +---------+ + + | EXTERNAL LAB | | | | + +---------+ + + Phosphorus (03/07/2014 4:15 AM PST) + + + + + + | Component | Value | Ref Range | Performed | Pathologist | | | | | At | Signature | + + + + + + | PHOSPHORUS | 5.1 (H)Comment: Testing | 2.3 - 4.8 mg/dL | EXTERNAL | | | | performed at [facility], [address] | | LAB | | | | [address], | | | | | | [place] [address] | | | | + + + + + + + + | Specimen | + + | Blood specimen | | (specimen) | + + + +---------+ + + | Performing | Address | City/State/Zipcode | Phone Number | | Organization | | | | + +---------+ + + | EXTERNAL LAB | | | | + +---------+ + + Magnesium (03/07/2014 4:15 AM PST) + + + + + + | Component | Value | Ref Range | Performed | Pathologist | | | | | At | Signature | + + + + + + | Magnesium | 1.7Comment: Testing | 1.7 - 2.4 mg/dL | EXTERNAL | | | | performed at [facility], [address] | | LAB | | | | [address], | | | | | | [place] [address] | | | | + + + + + + + + | Specimen | + + | Blood specimen | | (specimen) | + + + +---------+ + + | Performing | Address | City/State/Zipcode | Phone Number | | Organization | | | | + +---------+ + + | EXTERNAL LAB | | | | + +---------+ + + POC Glucose (03/06/2014 9:46 PM PST) + + + + + + | Component | Value | Ref Range | Performed | Pathologist | | | | | At | Signature | + + + + + + | Glucose, | 191 (H)Comment: Testing | 65 - 99 mg/dL | EXTERNAL | | | Fingerstick | performed at [facility];[address] | | LAB | | | | [address];[place], [place] | | | | | | [address] | | | | + + + + + + + + | Specimen | + + | | + + + +---------+ + + | Performing | Address | City/State/Zipcode | Phone Number | | Organization | | | | + +---------+ + + | EXTERNAL LAB | | | | + +---------+ + + CT Abdomen Pelvis w Contrast (03/06/2014 8:27 PM PST) + + | Specimen | + + | | + + + + + | Impressions | Performed At | + + + | 1. Persistent gaseous tract in the left groin, emanating from the | | | left vulvar abscess. The gaseous tract extends anteriorly and | | | superiorly into the subcutaneous adipose tissue of the deep left | | | groin, somewhat diminished in amount of gas as compared with | | | 02/27/14. The distribution of inflammatory reaction in the tract is | | | unchanged. No arline abscess identified. 2. Large ventral hernia, | | | without risk of incarceration or strangulation, unchanged. | | | | | + + + + + + | Narrative | Performed At | + + + | ANA ROSA [facility] CT ABDOMEN PELVIS W CONTRAST 03/06/2014 8:27 PM | | | History: 58 years. Female. Necrotizing infection of the left | | | groin identified on prior CT of 02/27/14. Vulvar abscess Followup | | | examination. Technique: Oral contrast was given. During a bolus | | | intravenous administration of 100 cc of nonionic iodine contrast, 1.25 | | | mm thin slice imaging was performed throughout the abdomen and pelvis | | | during portal venous phase of contrast enhancement, displayed at 5 | | | mm thick slices. Coronal imaging was also computed. Comparison | | | examination: None. ABDOMEN: The hepatic volume, density and | | | texture are normal. No focal hepatic lesions visualized. The | | | gallbladder has been removed. There is mild post cholecystectomy bile | | | duct dilatation. Moderate pancreatic atrophy is noted. The splenic | | | volume and texture are normal. Small to moderate bilateral | | | pleural effusions with segmental atelectasis in both lower lobes is | | | noted. The cardiac volume is normal. The gastroesophageal junction | | | is normal. The stomach shows normal wall thickness and position. | | | The duodenum is unremarkable. The adrenal glands are normal in | | | thickness, without visible nodule. The contour, size and position of | | | the kidneys are normal. Contrast enhancement of the kidneys is | | | normal. No caliectasis or large stones are visualized. However, | | | small calyceal stones cannot be excluded due to the contrast | | | enhancement. The ureters are normal in course and caliber. The | | | abdominal aorta shows normal caliber, without calcification. No | | | periaortic lymphadenopathy visualized. There is a large ventral | | | hernia measuring 18 cm a fascial defect. The herniation of small bowel | | | and mesentery into the pannus measures approximately 18 x 13 cm in | | | transverse diameter, unchanged. Subcutaneous adipose edema is noted | | | throughout the anterior and posterior body wall. PELVIS: There | | | is evidence of ulceration or abscess in the region of the left vulva, | | | with gas tracking in the soft tissues through the right groin into | | | the subcutaneous adipose tissue of the deep anterior left pelvis, | | | similar in distribution to that visualized on 02/27/14. The amount | | | of gas has decreased. The water density soft tissue thickening around | | | the gaseous tract is unchanged. Contrast fills most of the colon, | | | without mass or diverticular disease. The loops of small bowel show | | | normal caliber throughout the abdomen and pelvis, without edema or | | | wall thickening. No ascites or free air identified. The uterus appears | | | to be surgically absent. Osteophytes are noted in the lumbar | | | spine. Facet arthropathy is moderately severe in the lower lumbar | | | spine. No focal osteolytic process visualized in the range of the | | | examination. | | + + + + + | Procedure Note | + + | Norm, Rad Conversion - 11/10/2018 5:47 PM PDT ANA ROSA RigginsIris WRIGHTCT ABDOMEN PELVIS W | | PMMHODGP46/10/2014 8:27 PM History: 58 years. Female. Necrotizing infection of the | | left groin identified on prior CT of 02/27/14. Vulvar abscess Followup examination. | | Technique: Oral contrast was given. During a bolus intravenous administration of 100 cc | | of nonionic iodine contrast, 1.25 mm thin slice imaging was performed throughout the | | abdomen and pelvis during portal venous phase of contrast enhancement, displayed at 5 mm | | thick slices. Coronal imaging was also computed. Comparison examination: None. | | ABDOMEN: The hepatic volume, density and texture are normal. No focal hepatic lesions | | visualized. The gallbladder has been removed. There is mild post cholecystectomy bile | | duct dilatation. Moderate pancreatic atrophy is noted. The splenic volume and texture | | are normal. Small to moderate bilateral pleural effusions with segmental atelectasis in | | both lower lobes is noted. The cardiac volume is normal. The gastroesophageal junction | | is normal. The stomach shows normal wall thickness and position. The duodenum is | | unremarkable. The adrenal glands are normal in thickness, without visible nodule. The | | contour, size and position of the kidneys are normal. Contrast enhancement of the | | kidneys is normal. No caliectasis or large stones are visualized. However, small | | calyceal stones cannot be excluded due to the contrast enhancement. The ureters are | | normal in course and caliber. The abdominal aorta shows normal caliber, without | | calcification. No periaortic lymphadenopathy visualized. There is a large ventral | | hernia measuring 18 cm a fascial defect. The herniation of small bowel and mesentery | | into the pannus measures approximately 18 x 13 cm in transverse diameter, unchanged. | | Subcutaneous adipose edema is noted throughout the anterior and posterior body wall. | | PELVIS: There is evidence of ulceration or abscess in the region of the left vulva, | | with gas tracking in the soft tissues through the right groin into the subcutaneous | | adipose tissue of the deep anterior left pelvis, similar in distribution to that | | visualized on 02/27/14. The amount of gas has decreased. The water density soft tissue | | thickening around the gaseous tract is unchanged. Contrast fills most of the colon, | | without mass or diverticular disease. The loops of small bowel show normal caliber | | throughout the abdomen and pelvis, without edema or wall thickening. No ascites or free | | air identified. The uterus appears to be surgically absent. Osteophytes are noted in the | | lumbar spine. Facet arthropathy is moderately severe in the lower lumbar spine. No | | focal osteolytic process visualized in the range of the examination. IMPRESSION: 1. | | Persistent gaseous tract in the left groin, emanating from the left vulvar abscess. The | | gaseous tract extends anteriorly and superiorly into the subcutaneous adipose tissue of | | the deep left groin, somewhat diminished in amount of gas as compared with 02/27/14. The | | distribution of inflammatory reaction in the tract is unchanged. No arline abscess | | identified.2. Large ventral hernia, without risk of incarceration or strangulation, | | unchanged. | | | | | | | + + POC Glucose (03/06/2014 4:38 PM PST) + + + + + + | Component | Value | Ref Range | Performed | Pathologist | | | | | At | Signature | + + + + + + | Glucose, | 177 (H)Comment: Testing | 65 - 99 mg/dL | EXTERNAL | | | Fingerstick | performed at [facility];[address] | | LAB | | | | [address];[place], [place] | | | | | | [address] | | | | + + + + + + + + | Specimen | + + | | + + + +---------+ + + | Performing | Address | City/State/Zipcode | Phone Number | | Organization | | | | + +---------+ + + | EXTERNAL LAB | | | | + +---------+ + + Magnesium (03/06/2014 3:02 PM PST) + + + + + + | Component | Value | Ref Range | Performed | Pathologist | | | | | At | Signature | + + + + + + | Magnesium | 1.8Comment: Testing | 1.7 - 2.4 mg/dL | EXTERNAL | | | | performed at [facility] | | LAB | | | | [address];[place], [place] | | | | | | [address] | | | | + + + + + + + + | Specimen | + + | Blood specimen | | (specimen) | + + + +---------+ + + | Performing | Address | City/State/Zipcode | Phone Number | | Organization | | | | + +---------+ + + | EXTERNAL LAB | | | | + +---------+ + + Vancomycin, Trough (03/06/2014 3:02 PM PST) + + + + + + | Component | Value | Ref Range | Performed | Pathologist | | | | | At | Signature | + + + + + + | Vancomycin | 20.7 (H)Comment: 15 to | 10 - 20 ug/mL | EXTERNAL | | | Trough | 20 ug/mL for meningitis, | | LAB | | | | osteomyelitis, | | | | | | endocarditis, sepsis, or | | | | | | healthcare associated | | | | | | pneumonia, or an KEN | | | | | | equal to or greater than | | | | | | 1.0 ug/mLTesting | | | | | | performed at [facility] | | | | | | [address];[place], [place] | | | | | | [address] | | | | + + + + + + + + | Specimen | + + | Blood specimen | | (specimen) | + + + +---------+ + + | Performing | Address | City/State/Zipcode | Phone Number | | Organization | | | | + +---------+ + + | EXTERNAL LAB | | | | + +---------+ + + POC Glucose (03/06/2014 1:51 PM PST) + + + + + + | Component | Value | Ref Range | Performed | Pathologist | | | | | At | Signature | + + + + + + | Glucose, | 197 (H)Comment: Testing | 65 - 99 mg/dL | EXTERNAL | | | Fingerstick | performed at [facility];[address] | | LAB | | | [address];[place], [place] | | | | | | [address] | | | | + + + + + + + + | Specimen | + + | | + + + +---------+ + + | Performing | Address | City/State/Zipcode | Phone Number | | Organization | | | | + +---------+ + + | EXTERNAL LAB | | | | + +---------+ + + POC Glucose (03/06/2014 12:04 PM PST) + + + + + + | Component | Value | Ref Range | Performed | Pathologist | | | | | At | Signature | + + + + + + | Glucose, | 249 (H)Comment: Testing | 65 - 99 mg/dL | EXTERNAL | | | Fingerstick | performed at [facility];[address] | | LAB | | | | [address];[place] | | | | | | [address] | | | | + + + + + + + + | Specimen | + + | | + + + +---------+ + + | Performing | Address | City/State/Zipcode | Phone Number | | Organization | | | | + +---------+ + + | EXTERNAL LAB | | | | + +---------+ + + POC Glucose (03/06/2014 5:17 AM PST) + + + + + + | Component | Value | Ref Range | Performed | Pathologist | | | | | At | Signature | + + + + + + | Glucose, | 122 (H)Comment: Testing | 65 - 99 mg/dL | EXTERNAL | | | Fingerstick | performed at [facility];[address] | | LAB | | | | [address];[place] | | | | | | [address] | | | | + + + + + + + + | Specimen | + + | | + + + +---------+ + + | Performing | Address | City/State/Zipcode | Phone Number | | Organization | | | | + +---------+ + + | EXTERNAL LAB | | | | + +---------+ + + External Lab: CBC (03/06/2014 4:18 AM PST) + + + + + + | Component | Value | Ref Range | Performed | Pathologist | | | | | At | Signature | + + + + + + | WBC | 8.8Comment: Testing | 3.8 - 11.0 K/uL | EXTERNAL | | | | performed at [facility], [address] | | LAB | | | | [address], | | | | | | [place] [address] | | | | + + + + + + | Non- | 2.99 (L)Comment: Testing | 3.70 - 5.10 | EXTERNAL | | | Red Blood | performed at [facility], [address] | M/uL | LAB | | | Cells | [address], | | | | | Counted | [place] [address] | | | | + + + + + + | Hemoglobin | 8.0 (L)Comment: Testing | 11.3 - 15.5 | EXTERNAL | | | | performed at [facility], [address] | g/dL | LAB | | | | [address], | | | | | | [place] [address] | | | | + + + + + + | Hematocrit, | 24.8 (L)Comment: Testing | 34.0 - 46.0 % | EXTERNAL | | | POC | performed at [facility], [address] | | LAB | | | | [address], | | | | | | [place] [address] | | | | + + + + + + | MCV | 82.9Comment: Testing | 80.0 - 100.0 fl | EXTERNAL | | | | performed at [facility], [address] | | LAB | | | | [address], | | | | | | [place] [address] | | | | + + + + + + | MCH | 26.7 (L)Comment: Testing | 27.0 - 34.0 pg | EXTERNAL | | | | performed at [facility], [address] | | LAB | | | | [address], | | | | | | [place] [address] | | | | + + + + + + | MCHC | 32.2Comment: Testing | 32.0 - 35.5 | EXTERNAL | | | | performed at [facility], [address] | g/dL | LAB | | | | [address], | | | | | | [place] [address] | | | | + + + + + + | RDW-CV | 47.7Comment: Testing | 37 - 53 fl | EXTERNAL | | | | performed at [facility], [address] | | LAB | | | | [address], | | | | | | [place] [address] | | | | + + + + + + | Platelet | 62 (L)Comment: Testing | 150 - 400 K/uL | EXTERNAL | | | Count | performed at [facility], [address] | | LAB | | | Plasma | [address], | | | | | | [place] [address] | | | | + + + + + + | MPV | 11.0Comment: Testing | fl | EXTERNAL | | | | performed at [facility], [address] | | LAB | | | | [address], | | | | | | [place] [address] | | | | + + + + + + | Differentia | AUTOMATEDComment: | | EXTERNAL | | | l Type | Testing performed at | | LAB | | | | [facility], [address] | | | | | | [place] | | | | | | [address] | | | | + + + + + + | % Segmented | 75.7Comment: Testing | % | EXTERNAL | | | | performed at [facility], [address] | | LAB | | | Neutrophils | [address], | | | | | | [place] [address] | | | | + + + + + + | % | 12.3Comment: Testing | % | EXTERNAL | | | Lymphocytes | performed at [facility], [address] | | LAB | | | | [address], | | | | | | [place] [address] | | | | + + + + + + | % Monocytes | 9.4Comment: Testing | % | EXTERNAL | | | | performed at [facility], [address] | | LAB | | | | [address], | | | | | | [place] [address] | | | | + + + + + + | % | 2.0Comment: Testing | % | EXTERNAL | | | Eosinophils | performed at [facility], [address] | | LAB | | | | [address], | | | | | | [place] [address] | | | | + + + + + + | % Basophils | 0.6Comment: Testing | % | EXTERNAL | | | | performed at [facility], [address] | | LAB | | | | [address], | | | | | | [place] [address] | | | | + + + + + + | Absolute | 6.6Comment: Testing | 1.9 - 7.4 K/uL | EXTERNAL | | | Segmented | performed at [facility], [address] | | LAB | | | Neutrophils | [address], | | | | | | [place] [address] | | | | + + + + + + | Absolute | 1.1Comment: Testing | 1.0 - 3.9 K/uL | EXTERNAL | | | Lymphocytes | performed at [facility], [address] | | LAB | | | | [address], | | | | | | [place] [address] | | | | + + + + + + | Absolute | 0.8Comment: Testing | 0 - 0.8 K/uL | EXTERNAL | | | Monocytes | performed at [facility], [address] | | LAB | | | | [address], | | | | | | [place] [address] | | | | + + + + + + | Absolute | 0.2Comment: Testing | 0 - 0.5 K/uL | EXTERNAL | | | Eosinophils | performed at [facility], [address] | | LAB | | | | [address], | | | | | | [place] [address] | | | | + + + + + + | Absolute | 0.1Comment: Testing | 0 - 0.1 K/uL | EXTERNAL | | | Basophils | performed at [facility], [address] | | LAB | | | | [address], | | | | | | [place] [address] | | | | + + + + + + + + | Specimen | + + | Blood specimen | | (specimen) | + + + +---------+ + + | Performing | Address | City/State/Zipcode | Phone Number | | Organization | | | | + +---------+ + + | EXTERNAL LAB | | | | + +---------+ + + Phosphorus (03/06/2014 4:18 AM PST) + + + + + + | Component | Value | Ref Range | Performed | Pathologist | | | | | At | Signature | + + + + + + | PHOSPHORUS | 4.4Comment: Testing | 2.3 - 4.8 mg/dL | EXTERNAL | | | | performed at [facility], [address] | | LAB | | | | [address], | | | | | | [place] [address] | | | | + + + + + + + + | Specimen | + + | Blood specimen | | (specimen) | + + + +---------+ + + | Performing | Address | City/State/Zipcode | Phone Number | | Organization | | | | + +---------+ + + | EXTERNAL LAB | | | | + +---------+ + + Magnesium (03/06/2014 4:18 AM PST) + + + + + + | Component | Value | Ref Range | Performed | Pathologist | | | | | At | Signature | + + + + + + | Magnesium | 1.6 (L)Comment: Testing | 1.7 - 2.4 mg/dL | EXTERNAL | | | | performed at [facility], [address] | | LAB | | | | [address], | | | | | | [place] [address] | | | | + + + + + + + + | Specimen | + + | Blood specimen | | (specimen) | + + + +---------+ + + | Performing | Address | City/State/Zipcode | Phone Number | | Organization | | | | + +---------+ + + | EXTERNAL LAB | | | | + +---------+ + + POC Glucose (03/05/2014 9:14 PM PST) + + + + + + | Component | Value | Ref Range | Performed | Pathologist | | | | | At | Signature | + + + + + + | Glucose, | 117 (H)Comment: Testing | 65 - 99 mg/dL | EXTERNAL | | | Fingerstick | performed at [facility];[address] | | LAB | | | | [address];[place] | | | | | | [address] | | | | + + + + + + + + | Specimen | + + | | + + + +---------+ + + | Performing | Address | City/State/Zipcode | Phone Number | | Organization | | | | + +---------+ + + | EXTERNAL LAB | | | | + +---------+ + + Vancomycin, Trough (03/05/2014 8:04 PM PST) + + + + + + | Component | Value | Ref Range | Performed | Pathologist | | | | | At | Signature | + + + + + + | Vancomycin | 24.4 ()Comment: 15 to | 10 - 20 ug/mL | EXTERNAL | | | Trough | 20 ug/mL for meningitis, | | LAB | | | | osteomyelitis, | | | | | | endocarditis, sepsis, or | | | | | | healthcare associated | | | | | | pneumonia, or an KEN | | | | | | equal to or greater than | | | | | | 1.0 ug/mLCALLED | | | | | | RESULTSREAD BACK RESULTS | | | | | | VERIFIEDSUCESAR/AMBROSE [place] AT | | | | | | 2044 BY SALTesting | | | | | | performed at [facility] | | | | | | [facility];[place], [place] | | | | | | [address] | | | | + + + + + + + + | Specimen | + + | Blood specimen | | (specimen) | + + + +---------+ + + | Performing | Address | City/State/Zipcode | Phone Number | | Organization | | | | + +---------+ + + | EXTERNAL LAB | | | | + +---------+ + + POC Glucose (03/05/2014 3:51 PM PST) + + + + + + | Component | Value | Ref Range | Performed | Pathologist | | | | | At | Signature | + + + + + + | Glucose, | 111 (H)Comment: Testing | 65 - 99 mg/dL | EXTERNAL | | | Fingerstick | performed at [facility];[address] | | LAB | | | | [address];[place] | | | | | | [address] | | | | + + + + + + + + | Specimen | + + | | + + + +---------+ + + | Performing | Address | City/State/Zipcode | Phone Number | | Organization | | | | + +---------+ + + | EXTERNAL LAB | | | | + +---------+ + + POC Glucose (03/05/2014 11:52 AM PST) + + + + + + | Component | Value | Ref Range | Performed | Pathologist | | | | | At | Signature | + + + + + + | Glucose, | 131 (H)Comment: Testing | 65 - 99 mg/dL | EXTERNAL | | | Fingerstick | performed at [facility];[address] | | LAB | | | | [address];[place], [place] | | | | | | [address] | | | | + + + + + + + + | Specimen | + + | | + + + +---------+ + + | Performing | Address | City/State/Zipcode | Phone Number | | Organization | | | | + +---------+ + + | EXTERNAL LAB | | | | + +---------+ + + POC Glucose (03/05/2014 6:33 AM PST) + + + + + + | Component | Value | Ref Range | Performed | Pathologist | | | | | At | Signature | + + + + + + | Glucose, | 112 (H)Comment: Testing | 65 - 99 mg/dL | EXTERNAL | | | Fingerstick | performed at [facility];[address] | | LAB | | | | [address];[place], [place] | | | | | | [address] | | | | + + + + + + + + | Specimen | + + | | + + + +---------+ + + | Performing | Address | City/State/Zipcode | Phone Number | | Organization | | | | + +---------+ + + | EXTERNAL LAB | | | | + +---------+ + + External Lab: DMITRI (03/05/2014 3:19 AM PST) + + + + + + | Component | Value | Ref Range | Performed | Pathologist | | | | | At | Signature | + + + + + + | WBC | 11.3 (H)Comment: Testing | 3.8 - 11.0 K/uL | EXTERNAL | | | | performed at [facility], [address] | | LAB | | | | [address], | | | | | | [place] [address] | | | | + + + + + + | Non- | 2.95 (L)Comment: Testing | 3.70 - 5.10 | EXTERNAL | | | Red Blood | performed at [facility], [address] | M/uL | LAB | | | Cells | [address], | | | | | Counted | [place] [address] | | | | + + + + + + | Hemoglobin | 7.8 (L)Comment: Testing | 11.3 - 15.5 | EXTERNAL | | | | performed at [facility], [address] | g/dL | LAB | | | | [address], | | | | | | [place] [address] | | | | + + + + + + | Hematocrit, | 24.9 (L)Comment: Testing | 34.0 - 46.0 % | EXTERNAL | | | POC | performed at [facility], [address] | | LAB | | | | [address], | | | | | | [place] [address] | | | | + + + + + + | MCV | 84.3Comment: Testing | 80.0 - 100.0 fl | EXTERNAL | | | | performed at [facility], [address] | | LAB | | | | [address], | | | | | | [place] [address] | | | | + + + + + + | MCH | 26.5 (L)Comment: Testing | 27.0 - 34.0 pg | EXTERNAL | | | | performed at [facility], [address] | | LAB | | | | [address], | | | | | | [place] [address] | | | | + + + + + + | MCHC | 31.5 (L)Comment: Testing | 32.0 - 35.5 | EXTERNAL | | | | performed at [facility], [address] | g/dL | LAB | | | | [address], | | | | | | [place] [address] | | | | + + + + + + | RDW-CV | 47.3Comment: Testing | 37 - 53 fl | EXTERNAL | | | | performed at [facility], [address] | | LAB | | | | [address], | | | | | | [place] [address] | | | | + + + + + + | Platelet | 60 (L)Comment: Testing | 150 - 400 K/uL | EXTERNAL | | | Count | performed at [facility], [address] | | LAB | | | Plasma | [address], | | | | | | [place] [address] | | | | + + + + + + | MPV | 10.0Comment: Testing | fl | EXTERNAL | | | | performed at [facility], [address] | | LAB | | | | [address], | | | | | | [place] [address] | | | | + + + + + + | Differentia | AUTOMATEDComment: | | EXTERNAL | | | l Type | Testing performed at | | LAB | | | | [facility], [address] | | | | | | [place] | | | | | | [address] | | | | + + + + + + | % Segmented | 79.1Comment: Testing | % | EXTERNAL | | | | performed at [facility], [address] | | LAB | | | Neutrophils | [address], | | | | | | [place] [address] | | | | + + + + + + | % | 11.5Comment: Testing | % | EXTERNAL | | | Lymphocytes | performed at [facility], [address] | | LAB | | | | [address], | | | | | | [place] [address] | | | | + + + + + + | % Monocytes | 7.6Comment: Testing | % | EXTERNAL | | | | performed at [facility], [address] | | LAB | | | | [address], | | | | | | [place] [address] | | | | + + + + + + | % | 1.4Comment: Testing | % | EXTERNAL | | | Eosinophils | performed at [facility], [address] | | LAB | | | | [address], | | | | | | [place] [address] | | | | + + + + + + | % Basophils | 0.4Comment: Testing | % | EXTERNAL | | | | performed at [facility], [address] | | LAB | | | | [address], | | | | | | [place] [address] | | | | + + + + + + | Absolute | 8.9 (H)Comment: Testing | 1.9 - 7.4 K/uL | EXTERNAL | | | Segmented | performed at [facility], [address] | | LAB | | | Neutrophils | [address], | | | | | | [place] [address] | | | | + + + + + + | Absolute | 1.3Comment: Testing | 1.0 - 3.9 K/uL | EXTERNAL | | | Lymphocytes | performed at [facility], [address] | | LAB | | | | [address], | | | | | | [place] [address] | | | | + + + + + + | Absolute | 0.9 (H)Comment: Testing | 0 - 0.8 K/uL | EXTERNAL | | | Monocytes | performed at [facility], [address] | | LAB | | | | [address], | | | | | | [place] [address] | | | | + + + + + + | Absolute | 0.2Comment: Testing | 0 - 0.5 K/uL | EXTERNAL | | | Eosinophils | performed at [facility], [address] | | LAB | | | | [address], | | | | | | [place] [address] | | | | + + + + + + | Absolute | 0.0Comment: Testing | 0 - 0.1 K/uL | EXTERNAL | | | Basophils | performed at [facility], [address] | | LAB | | | | [address], | | | | | | [place] [address] | | | | + + + + + + + + | Specimen | + + | Blood specimen | | (specimen) | + + + +---------+ + + | Performing | Address | City/State/Zipcode | Phone Number | | Organization | | | | + +---------+ + + | EXTERNAL LAB | | | | + +---------+ + + Phosphorus (03/05/2014 3:19 AM PST) + + + + + + | Component | Value | Ref Range | Performed | Pathologist | | | | | At | Signature | + + + + + + | PHOSPHORUS | 4.7Comment: Testing | 2.3 - 4.8 mg/dL | EXTERNAL | | | | performed at [facility], [address] | | LAB | | | | [address], | | | | | | [place] [address] | | | | + + + + + + + + | Specimen | + + | Blood specimen | | (specimen) | + + + +---------+ + + | Performing | Address | City/State/Zipcode | Phone Number | | Organization | | | | + +---------+ + + | EXTERNAL LAB | | | | + +---------+ + + Magnesium (03/05/2014 3:19 AM PST) + + + + + + | Component | Value | Ref Range | Performed | Pathologist | | | | | At | Signature | + + + + + + | Magnesium | 1.5 (L)Comment: Testing | 1.7 - 2.4 mg/dL | EXTERNAL | | | | performed at [facility], [address] | | LAB | | | | [address], | | | | | | [place] [address] | | | | + + + [...] + +---------+ + + Comprehensive Metabolic Panel (03/05/2014 3:19 AM PST) + + + + + + | Component | Value | Ref Range | Performed | Pathologist | | | | | At | Signature | + + + + + + | Na | 139Comment: Testing | 135 - 143 | EXTERNAL | | | | performed at [facility], [address] | mmol/L | LAB | | | | [address], | | | | | | [place] [address] | | | | + + + + + + | K | 3.6Comment: Testing | 3.5 - 4.9 | EXTERNAL | | | | performed at [facility], [address] | mmol/L | LAB | | | | [address], | | | | | | [place] [address] | | | | + + + + + + | Cl | 109Comment: Testing | 99 - 109 mmol/L | EXTERNAL | | | | performed at [facility], [address] | | LAB | | | | [address], | | | | | | [place] [address] | | | | + + + + + + | CO2 | 23Comment: Testing | 23 - 32 mmol/L | EXTERNAL | | | | performed at [facility], [address] | | LAB | | | | [address], | | | | | | [place] [address] | | | | + + + + + + | Anion Gap | 11Comment: Testing | 5 - 20 mmol/L | EXTERNAL | | | | performed at [facility], [address] | | LAB | | | | [address], | | | | | | [place] [address] | | | | + + + + + + | Glucose, | 101 (H)Comment: Testing | 65 - 99 mg/dL | EXTERNAL | | | Fasting | performed at [facility], [address] | | LAB | | | | [address], | | | | | | [place] [address] | | | | + + + + + + | BUN | 5 (L)Comment: Testing | 8 - 25 mg/dL | EXTERNAL | | | | performed at [facility], [address] | | LAB | | | | [address], | | | | | | [place] [address] | | | | + + + + + + | Creatinine | 0.82Comment: Testing | 0.50 - 1.00 | EXTERNAL | | | | performed at [facility], [address] | mg/dL | LAB | | | | [address], | | | | | | [place] [address] | | | | + + + + + + | BUN/Creatin | 6Comment: Testing | | EXTERNAL | | | ine Ratio | performed at [facility], [address] | | LAB | | | | [address], | | | | | | [place] [address] | | | | + + + + + + | Calcium | 7.7 (L)Comment: Testing | 8.5 - 10.2 | EXTERNAL | | | | performed at [facility], [address] | mg/dL | LAB | | | | [address], | | | | | | [place] [address] | | | | + + + + + + | Protein, | 5.3 (L)Comment: Testing | 6.3 - 8.2 g/dL | EXTERNAL | | | Total | performed at [facility], [address] | | LAB | | | | [address], | | | | | | [place] [id number] | | | | + + + + + + | Albumin | 2.0 (L)Comment: Testing | 3.6 - 5.0 g/dL | EXTERNAL | | | | performed at [facility], [address] | | LAB | | | | [address], | | | | | | [place] [address] | | | | + + + + + + | Globulin | 3.3Comment: Testing | 1.3 - 4.9 g/dL | EXTERNAL | | | | performed at [facility], [address] | | LAB | | | | [address], | | | | | | [place] [address] | | | | + + + + + + | A/G Ratio | 0.6 (L)Comment: Testing | 1.0 - 2.4 | EXTERNAL | | | | performed at [facility], [address] | | LAB | | | | [address], | | | | | | [place] [address] | | | | + + + + + + | Bilirubin | 0.4Comment: Testing | 0.1 - 1.5 mg/dL | EXTERNAL | | | Total | performed at [facility], [address] | | LAB | | | | [address], | | | | | | [place] [address] | | | | + + + + + + | ALP, | 113Comment: Testing | 35 - 115 U/L | EXTERNAL | | | External | performed at [facility], [address] | | LAB | | | | [address], | | | | | | [place] [address] | | | | + + + + + + | AST | 17Comment: Testing | 10 - 45 U/L | EXTERNAL | | | | performed at [facility], [address] | | LAB | | | | [address], | | | | | | [place] [address] | | | | + + + + + + | ALT | 8 (L)Comment: Testing | 10 - 65 U/L | EXTERNAL | | | | performed at [facility], [address] | | LAB | | | | [address], | | | | | | [place] [address] | | | | + + + + + + | Estimated | >60Comment: GFR <60: | mL/min/1.73m2 | EXTERNAL | | | GFR | CHRONIC KIDNEY DISEASE, | | LAB | | | | IF FOUND OVER A 3 MONTH | | | | | | PERIOD.GFR <15: KIDNEY | | | | | | FAILURE.FOR | | | | | | AMERICANS, MULTIPLY THE | | | | | | CALCULATED GFR BY | | | | | | 1.210.Testing performed | | | | | | at [facility], [address] | | | | | | [address], | | | | | | [place] [address] | | | | + + + + + + + + | Specimen | + + | | + + + +---------+ + + | Performing | Address | City/State/Zipcode | Phone Number | | Organization | | | | + +---------+ + + | EXTERNAL LAB | | | | + +---------+ + + POC Glucose (03/04/2014 9:50 PM PST) + + + + + + | Component | Value | Ref Range | Performed | Pathologist | | | | | At | Signature | + + + + + + | Glucose, | 127 (H)Comment: Testing | 65 - 99 mg/dL | EXTERNAL | | | Fingerstick | performed at [facility];[address] | | LAB | | | | [address];[place] | | | | | | [address] | | | | + + + + + + + + | Specimen | + + | | + + + +---------+ + + | Performing | Address | City/State/Zipcode | Phone Number | | Organization | | | | + +---------+ + + | EXTERNAL LAB | | | | + +---------+ + + POC Glucose (03/04/2014 4:20 PM PST) + + + + + + | Component | Value | Ref Range | Performed | Pathologist | | | | | At | Signature | + + + + + + | Glucose, | 98Comment: Testing | 65 - 99 mg/dL | EXTERNAL | | | Fingerstick | performed at [facility];[address] | | LAB | | | | [address];[place], [place] | | | | | | [address] | | | | + + + + + + + + | Specimen | + + | | + + + +---------+ + + | Performing | Address | City/State/Zipcode | Phone Number | | Organization | | | | + +---------+ + + | EXTERNAL LAB | | | | + +---------+ + + POC Glucose (03/04/2014 12:50 PM PST) + + + + + + | Component | Value | Ref Range | Performed | Pathologist | | | | | At | Signature | + + + + + + | Glucose, | 110 (H)Comment: Testing | 65 - 99 mg/dL | EXTERNAL | | | Fingerstick | performed at [facility];[address] | | LAB | | | [address];[place] | | | | | | [address] | | | | + + + + + + + + | Specimen | + + | | + + + +---------+ + + | Performing | Address | City/State/Zipcode | Phone Number | | Organization | | | | + +---------+ + + | EXTERNAL LAB | | | | + +---------+ + + POC Glucose (03/04/2014 11:01 AM PST) + + + + + + | Component | Value | Ref Range | Performed | Pathologist | | | | | At | Signature | + + + + + + | Glucose, | 131 (H)Comment: Testing | 65 - 99 mg/dL | EXTERNAL | | | Fingerstick | performed at [facility] | | LAB | | | | [address];[place], [place] | | | | | | [address] | | | | + + + + + + + + | Specimen | + + | | + + + +---------+ + + | Performing | Address | City/State/Zipcode | Phone Number | | Organization | | | | + +---------+ + + | EXTERNAL LAB | | | | + +---------+ + + CBC with Manual Differential (03/04/2014 5:35 AM PST) + + + + + + | Component | Value | Ref Range | Performed | Pathologist | | | | | At | Signature | + + + + + + | WBC | 11.9 (H)Comment: Testing | 3.8 - 11.0 K/uL | EXTERNAL | | | | performed at [facility], [address] | | LAB | | | | [address], | | | | | | [place] [address] | | | | + + + + + + | Non- | 3.06 (L)Comment: Testing | 3.70 - 5.10 | EXTERNAL | | | Red Blood | performed at [facility], [address] | [address]/uL | LAB | | | Cells | [address], | | | | | Counted | [place] [address] | | | | + + + + + + | Hemoglobin | 8.0 (L)Comment: Testing | 11.3 - 15.5 | EXTERNAL | | | | performed at [facility], [address] | g/dL | LAB | | | | [address], | | | | | | [place] [address] | | | | + + + + + + | Hematocrit, | 25.4 (L)Comment: Testing | 34.0 - 46.0 % | EXTERNAL | | | POC | performed at [facility], [address] | | LAB | | | | [address], | | | | | | [place] [address] | | | | + + + + + + | MCV | 83.0Comment: Testing | 80.0 - 100.0 fl | EXTERNAL | | | | performed at [facility], [address] | | LAB | | | | [address], | | | | | | [place] [address] | | | | + + + + + + | MCH | 26.2 (L)Comment: Testing | 27.0 - 34.0 pg | EXTERNAL | | | | performed at [facility], [address] | | LAB | | | | [address], | | | | | | [place] [address] | | | | + + + + + + | MCHC | 31.6 (L)Comment: Testing | 32.0 - 35.5 | EXTERNAL | | | | performed at [facility], [address] | g/dL | LAB | | | | [address], | | | | | | [place] [address] | | | | + + + + + + | RDW-CV | 46.4Comment: Testing | 37 - 53 fl | EXTERNAL | | | | performed at [facility], [address] | | LAB | | | | [address], | | | | | | [place] [address] | | | | + + + + + + | Platelet | 86 (L)Comment: Testing | 150 - 400 K/uL | EXTERNAL | | | Count | performed at [facility], [address] | | LAB | | | Plasma | [address], | | | | | | [place] [address] | | | | + + + + + + | MPV | 8.7Comment: Testing | fl | EXTERNAL | | | | performed at [facility], [address] | | LAB | | | | [address], | | | | | | [place], [place] [address] | | | | + + + + + + | Differentia | MANUALComment: Testing | | EXTERNAL | | | l Type | performed at [facility], [address] | | LAB | | | | [address], | | | | | | [place], [place] [address] | | | | + + + + + + | Nucleated | 1 (H)Comment: Testing | /100WBC | EXTERNAL | | | Red Blood | performed at [facility], [address] | | LAB | | | Cells | [address], | | | | | | [place] [address] | | | | + + + + + + | Segmented | 74Comment: Testing | % | EXTERNAL | | | Neutrophils | performed at [facility], [address] | | LAB | | | Manual | [address], | | | | | | [place] [address] | | | | + + + + + + | % Bands | 10Comment: Testing | % | EXTERNAL | | | | performed at [facility], [address] | | LAB | | | | [address], | | | | | | [place] [address] | | | | + + + + + + | Lymphocytes | 11Comment: Testing | % | EXTERNAL | | | Manual | performed at [facility], [address] | | LAB | | | | [address], | | | | | | [place] [address] | | | | + + + + + + | Monocytes | 5Comment: Testing | % | EXTERNAL | | | Manual | performed at [facility], [address] | | LAB | | | | [address], | | | | | | [place] [address] | | | | + + + + + + | Absolute | 8.8 (H)Comment: Testing | 1.9 - 7.4 K/uL | EXTERNAL | | | Neutrophils | performed at [facility], [address] | | LAB | | | | [address], | | | | | | [place] [address] | | | | + + + + + + | Bands | 1.2 (H)Comment: Testing | 0 - 0.2 K/uL | EXTERNAL | | | Manual | performed at [facility], [address] | | LAB | | | | [address], | | | | | | [place] [address] | | | | + + + + + + | Absolute | 1.3Comment: Testing | 1.0 - 3.9 K/uL | EXTERNAL | | | Lymphocytes | performed at [facility], [address] | | LAB | | | | [address], | | | | | | [place] [address] | | | | + + + + + + | Absolute | 0.6Comment: Testing | 0 - 0.8 K/uL | EXTERNAL | | | Monocytes | performed at [facility], [address] | | LAB | | | | [address], | | | | | | [place] [address] | | | | + + + + + + | Platelet | DECREASEDComment: | | EXTERNAL | | | Estimate | Testing performed at | | LAB | | | | [facility], [address] | | | | | | [place] | | | | | | [address] | | | | + + + + + + | RBC | NORMAL RBC MORPHComment: | | EXTERNAL | | | Morphology | Testing performed at | | LAB | | | | [facility], [address] | | | | | | [place] | | | | | | [address] | | | | + + + + + + + + | Specimen | + + | Blood specimen | | (specimen) | + + + +---------+ + + | Performing | Address | City/State/Zipcode | Phone Number | | Organization | | | | + +---------+ + + | EXTERNAL LAB | | | | + +---------+ + + Phosphorus (03/04/2014 5:35 AM PST) + + + + + + | Component | Value | Ref Range | Performed | Pathologist | | | | | At | Signature | + + + + + + | PHOSPHORUS | 4.9 (H)Comment: Testing | 2.3 - 4.8 mg/dL | EXTERNAL | | | | performed at [facility], [address] | | LAB | | | | [address], | | | | | | [place] [address] | | | | + + + + + + + + | Specimen | + + | | + + + +---------+ + + | Performing | Address | City/State/Zipcode | Phone Number | | Organization | | | | + +---------+ + + | EXTERNAL LAB | | | | + +---------+ + + Magnesium (03/04/2014 5:35 AM PST) + + + + + + | Component | Value | Ref Range | Performed | Pathologist | | | | | At | Signature | + + + + + + | Magnesium | 1.5 (L)Comment: Testing | 1.7 - 2.4 mg/dL | EXTERNAL | | | | performed at [facility], [address] | | LAB | | | | [address], | | | | | | [place] [address] | | | | + + + + + + + + | Specimen | + + | | + + + +---------+ + + | Performing | Address | City/State/Zipcode | Phone Number | | Organization | | | | + +---------+ + + | EXTERNAL LAB | | | | + +---------+ + + Comprehensive Metabolic Panel (03/04/2014 5:35 AM PST) + + + + + + | Component | Value | Ref Range | Performed | Pathologist | | | | | At | Signature | + + + + + + | Na | 138Comment: Testing | 135 - 143 | EXTERNAL | | | | performed at [facility], [address] | mmol/L | LAB | | | | [address], | | | | | | [place] [address] | | | | + + + + + + | K | 3.8Comment: Testing | 3.5 - 4.9 | EXTERNAL | | | | performed at [facility], [address] | mmol/L | LAB | | | | [address], | | | | | | [place] [address] | | | | + + + + + + | Cl | 111 (H)Comment: Testing | 99 - 109 mmol/L | EXTERNAL | | | | performed at [facility], [address] | | LAB | | | | [address], | | | | | | [place] [address] | | | | + + + + + + | CO2 | 24Comment: Testing | 23 - 32 mmol/L | EXTERNAL | | | | performed at [facility], [address] | | LAB | | | | [address], | | | | | | [place] [address] | | | | + + + + + + | Anion Gap | 7Comment: Testing | 5 - 20 mmol/L | EXTERNAL | | | | performed at [facility], [address] | | LAB | | | | [address], | | | | | | [place] [address] | | | | + + + + + + | Glucose, | 116 (H)Comment: Testing | 65 - 99 mg/dL | EXTERNAL | | | Fasting | performed at [facility], [address] | | LAB | | | | [address], | | | | | | [place] [address] | | | | + + + + + + | BUN | 6 (L)Comment: Testing | 8 - 25 mg/dL | EXTERNAL | | | | performed at [facility], [address] | | LAB | | | | [address], | | | | | | [place] [address] | | | | + + + + + + | Creatinine | 0.83Comment: Testing | 0.50 - 1.00 | EXTERNAL | | | | performed at [facility], [address] | mg/dL | LAB | | | | [address], | | | | | | [place] [address] | | | | + + + + + + | BUN/Creatin | 7Comment: Testing | | EXTERNAL | | | ine Ratio | performed at [facility], [address] | | LAB | | | | [address], | | | | | | [place] [address] | | | | + + + + + + | Calcium | 7.8 (L)Comment: Testing | 8.5 - 10.2 | EXTERNAL | | | | performed at [facility], [address] | mg/dL | LAB | | | | [address], | | | | | | [place] [address] | | | | + + + + + + | Protein, | 5.3 (L)Comment: Testing | 6.3 - 8.2 g/dL | EXTERNAL | | | Total | performed at [facility], [address] | | LAB | | | | [address], | | | | | | [place] [address] | | | | + + + + + + | Albumin | 2.0 (L)Comment: Testing | 3.6 - 5.0 g/dL | EXTERNAL | | | | performed at [facility], [address] | | LAB | | | | [address], | | | | | | [place] [address] | | | | + + + + + + | Globulin | 3.3Comment: Testing | 1.3 - 4.9 g/dL | EXTERNAL | | | | performed at [facility], [address] | | LAB | | | | [address], | | | | | | [place] [address] | | | | + + + + + + | A/G Ratio | 0.6 (L)Comment: Testing | 1.0 - 2.4 | EXTERNAL | | | | performed at [facility], [address] | | LAB | | | [address], | | | | | | [place] [address] | | | | + + + + + + | Bilirubin | 0.3Comment: Testing | 0.1 - 1.5 mg/dL | EXTERNAL | | | Total | performed at [facility], [address] | | LAB | | | | [address], | | | | | | [place] [address] | | | | + + + + + + | ALP, | 125 (H)Comment: Testing | 35 - 115 U/L | EXTERNAL | | | External | performed at [facility], [address] | | LAB | | | | [address], | | | | | | [place] [address] | | | | + + + + + + | AST | 15Comment: Testing | 10 - 45 U/L | EXTERNAL | | | | performed at [facility], [address] | | LAB | | | [address], | | | | | | [place] [address] | | | | + + + + + + | ALT | 10Comment: Testing | 10 - 65 U/L | EXTERNAL | | | | performed at [facility], [address] | | LAB | | | [address], | | | | | | [place] [address] | | | | + + + + + + | Estimated | >60Comment: GFR <60: | mL/min/1.73m2 | EXTERNAL | | | GFR | CHRONIC KIDNEY DISEASE, | | LAB | | | | IF FOUND OVER A 3 MONTH | | | | | | PERIOD.GFR <15: KIDNEY | | | | | | FAILURE.FOR | | | | | | AMERICANS, MULTIPLY THE | | | | | | CALCULATED GFR BY | | | | | | 1.210.Testing performed | | | | | | at [facility], [address] | | | | | | [address], | | | | | | [place] [address] | | | | + + + + + + + + | Specimen | + + | | + + + +---------+ + + | Performing | Address | City/State/Zipcode | Phone Number | | Organization | | | | + +---------+ + + | EXTERNAL LAB | | | | + +---------+ + + POC Glucose (03/04/2014 5:24 AM PST) + + + + + + | Component | Value | Ref Range | Performed | Pathologist | | | | | At | Signature | + + + + + + | Glucose, | 125 (H)Comment: Testing | 65 - 99 mg/dL | EXTERNAL | | | Fingerstick | performed at [facility] | | LAB | | | | [address];[place] | | | | | | [address] | | | | + + + + + + + + | Specimen | + + | | + + + +---------+ + + | Performing | Address | City/State/Zipcode | Phone Number | | Organization | | | | + +---------+ + + | EXTERNAL LAB | | | | + +---------+ + + POC Glucose (03/03/2014 9:40 PM PST) + + + + + + | Component | Value | Ref Range | Performed | Pathologist | | | | | At | Signature | + + + + + + | Glucose, | 153 (H)Comment: Testing | 65 - 99 mg/dL | EXTERNAL | | | Fingerstick | performed at [facility];[address] | | LAB | | | | [address];[place] | | | | | | [address] | | | | + + + + + + + + | Specimen | + + | | + + + +---------+ + + | Performing | Address | City/State/Zipcode | Phone Number | | Organization | | | | + +---------+ + + | EXTERNAL LAB | | | | + +---------+ + + Vancomycin, Trough (03/03/2014 4:17 PM PST) + + + + + + | Component | Value | Ref Range | Performed | Pathologist | | | | | At | Signature | + + + + + + | Vancomycin | 22.1 ()Comment: 15 to | 10 - 20 ug/mL | EXTERNAL | | | Trough | 20 ug/mL for meningitis, | | LAB | | | | osteomyelitis, | | | | | | endocarditis, sepsis, or | | | | | | healthcare associated | | | | | | pneumonia, or an KEN | | | | | | equal to or greater than | | | | | | 1.0 ug/mLRESULT READ | | | | | | BACK BY:MASOUD Escobedo ON | | | | | | 4EAST AT [address] ON | | | | | | [id number] performed | | | | | | at [facility];[address] | [address];[place] [address] | | | | + + + + + + + + | Specimen | + + | Blood specimen | | (specimen) | + + + +---------+ + + | Performing | Address | City/State/Zipcode | Phone Number | | Organization | | | | + +---------+ + + | EXTERNAL LAB | | | | + +---------+ + + POC Glucose (03/03/2014 4:05 PM PST) + + + + + + | Component | Value | Ref Range | Performed | Pathologist | | | | | At | Signature | + + + + + + | Glucose, | 92Comment: Testing | 65 - 99 mg/dL | EXTERNAL | | | Fingerstick | performed at [facility];[address] | | LAB | | | | [address];[place] | | | | | | [address] | | | | + + + + + + + + | Specimen | + + | | + + + +---------+ + + | Performing | Address | City/State/Zipcode | Phone Number | | Organization | | | | + +---------+ + + | EXTERNAL LAB | | | | + +---------+ + + POC Glucose (03/03/2014 11:06 AM PST) + + + + + + | Component | Value | Ref Range | Performed | Pathologist | | | | | At | Signature | + + + + + + | Glucose, | 120 (H)Comment: Testing | 65 - 99 mg/dL | EXTERNAL | | | Fingerstick | performed at [facility];[address] | | LAB | | | | [address];[place] | | | | | | [address] | | | | + + + + + + + + | Specimen | + + | | + + + +---------+ + + | Performing | Address | City/State/Zipcode | Phone Number | | Organization | | | | + +---------+ + + | EXTERNAL LAB | | | | + +---------+ + + POC Glucose (03/03/2014 5:09 AM PST) + + + + + + | Component | Value | Ref Range | Performed | Pathologist | | | | | At | Signature | + + + + + + | Glucose, | 74Comment: Testing | 65 - 99 mg/dL | EXTERNAL | | | Fingerstick | performed at [facility];[address] | | LAB | | | | [address];[place] | | | | | | [address] | | | | + + + + + + + + | Specimen | + + | | + + + +---------+ + + | Performing | Address | City/State/Zipcode | Phone Number | | Organization | | | | + +---------+ + + | EXTERNAL LAB | | | | + +---------+ + + Vitamin D, Deficiency Screen (25-Hydroxy) (03/03/2014 4:28 AM PST) + + + + + + | Component | Value | Ref Range | Performed | Pathologist | | | | | At | Signature | + + + + + + | Vit D, | 21 (L)Comment: <20 ng/mL | 30 - 150 ng/mL | EXTERNAL | | | 25-Hydroxy | Suggests | | LAB | | | | deficiency of 25-OH | | | | | | Vitamin D.20-29 ng/mL | | | | | | Suggests a relative | | | | | | insufficiency of 25-OH | | | | | | Vitamin D.30-150 ng/mL | | | | | | Suggests a sufficient | | | | | | level of 25-OH Vitamin | | | | | | D.>150 ng/mL Toxic | | | | | | level of 25-OH Vitamin | | | | | | D.Blood levels of 25 | | | | | | Hydroxy Vitamin D vary | | | | | | with the extent of sun | | | | | | exposure. Values tend to | | | | | | be highest in late | | | | | | summer and lowest in the | | | | | | spring. Values also | | | | | | tend to decrease with | | | | | | age, due to decreased | | | | | | precursor synthesis in | | | | | | the skin.Testing | | | | | | performed at [facility], [address] | | | | | | [facility], | | | | | | [place] [address] | | | | + + + + + + + + | Specimen | + + | Blood specimen | | (specimen) | + + + +---------+ + + | Performing | Address | City[facility]State[facility] | Phone Number | | Organization | | | | + +---------+ + + | EXTERNAL LAB | | | | + +---------+ + + Sedimentation rate, automated (03/03/2014 4:28 AM PST) + + + + + + | Component | Value | Ref Range | Performed | Pathologist | | | | | At | Signature | + + + + + + | Sed Rate | 102 (H)Comment: Testing | 0 - 30 mm/Hr | EXTERNAL | | | | performed at [facility], [address] | | LAB | | | | [address], | | | | | | [place] [address] | | | | + + + + + + + + | Specimen | + + | Blood specimen | | (specimen) | + + + +---------+ + + | Performing | Address | City/State/Zipcode | Phone Number | | Organization | | | | + +---------+ + + | EXTERNAL LAB | | | | + +---------+ + + CBC with Manual Differential (03/03/2014 4:28 AM PST) + + + + + + | Component | Value | Ref Range | Performed | Pathologist | | | | | At | Signature | + + + + + + | WBC | 13.8 (H)Comment: Testing | 3.8 - 11.0 K/uL | EXTERNAL | | | | performed at [facility], [address] | | LAB | | | | [address], | | | | | | [place] [address] | | | | + + + + + + | Non- | 3.03 (L)Comment: Testing | 3.70 - 5.10 | EXTERNAL | | | Red Blood | performed at [facility], [address] | M/uL | LAB | | | Cells | [address], | | | | | Counted | [place] [address] | | | | + + + + + + | Hemoglobin | 7.9 (L)Comment: Testing | 11.3 - 15.5 | EXTERNAL | | | | performed at [facility], [address] | g/dL | LAB | | | | [address], | | | | | | [place] [address] | | | | + + + + + + | Hematocrit, | 25.1 (L)Comment: Testing | 34.0 - 46.0 % | EXTERNAL | | | POC | performed at [facility], [address] | | LAB | | | | [address], | | | | | | [place] [address] | | | | + + + + + + | MCV | 82.8Comment: Testing | 80.0 - 100.0 fl | EXTERNAL | | | | performed at [facility], [address] | | LAB | | | | [address], | | | | | | [place] [address] | | | | + + + + + + | MCH | 26.1 (L)Comment: Testing | 27.0 - 34.0 pg | EXTERNAL | | | | performed at [facility], [address] | | LAB | | | | [address], | | | | | | [place] [address] | | | | + + + + + + | MCHC | 31.5 (L)Comment: Testing | 32.0 - 35.5 | EXTERNAL | | | | performed at [facility], [address] | g/dL | LAB | | | | [address], | | | | | | [place] [address] | | | | + + + + + + | RDW-CV | 46.8Comment: Testing | 37 - 53 fl | EXTERNAL | | | | performed at [facility], [address] | | LAB | | | | [address], | | | | | | [place] [address] | | | | + + + + + + | Platelet | 181Comment: Testing | 150 - 400 K/uL | EXTERNAL | | | Count | performed at [facility], [address] | | LAB | | | Plasma | [address], | | | | | | [place] [address] | | | | + + + + + + | MPV | 8.2Comment: Testing | fl | EXTERNAL | | | | performed at [facility], [address] | | LAB | | | | [address], | | | | | | [place] [address] | | | | + + + + + + | Differentia | MANUALComment: Testing | | EXTERNAL | | | l Type | performed at [facility], [address] | | LAB | | | | [address], | | | | | | [place] [address] | | | | + + + + + + | Segmented | 59Comment: Testing | % | EXTERNAL | | | Neutrophils | performed at [facility], [address] | | LAB | | | Manual | [address], | | | | | | [place] [address] | | | | + + + + + + | % Bands | 27Comment: Testing | % | EXTERNAL | | | | performed at [facility], [address] | | LAB | | | | [address], | | | | | | [place] [address] | | | | + + + + + + | Lymphocytes | 8Comment: Testing | % | EXTERNAL | | | Manual | performed at [facility], [address] | | LAB | | | | [address], | | | | | | [place] [address] | | | | + + + + + + | Monocytes | 4Comment: Testing | % | EXTERNAL | | | Manual | performed at [facility], [address] | | LAB | | | | [address], | | | | | | [place] [address] | | | | + + + + + + | Eosinophils | 2Comment: Testing | % | EXTERNAL | | | Manual | performed at [facility], [address] | | LAB | | | [address], | | | | | | [place] [address] | | | | + + + + + + | Absolute | 8.1 (H)Comment: Testing | 1.9 - 7.4 K/uL | EXTERNAL | | | Neutrophils | performed at [facility], [address] | | LAB | | | | [address], | | | | | | [place] [address] | | | | + + + + + + | Bands | 3.7 (H)Comment: Testing | 0 - 0.2 K/uL | EXTERNAL | | | Manual | performed at [facility], [address] | | LAB | | | | [address], | | | | | | [place] [address] | | | | + + + + + + | Absolute | 1.1Comment: Testing | 1.0 - 3.9 K/uL | EXTERNAL | | | Lymphocytes | performed at [facility], [address] | | LAB | | | | [address], | | | | | | [place] [address] | | | | + + + + + + | Absolute | 0.6Comment: Testing | 0 - 0.8 K/uL | EXTERNAL | | | Monocytes | performed at [facility], [address] | | LAB | | | | [address], | | | | | | [place] [address] | | | | + + + + + + | Absolute | 0.3Comment: Testing | 0 - 0.5 K/uL | EXTERNAL | | | Eosinophils | performed at [facility], [address] | | LAB | | | | [address], | | | | | | [place] [address] | | | | + + + + + + | RBC | NORMAL PLT MORPHComment: | | EXTERNAL | | | Morphology | NORMAL RBC MORPHTesting | | LAB | | | | performed at [facility], [address], | | | | | | [place] [address] | | | | + + + + + + + + | Specimen | + + | | + + + +---------+ + + | Performing | Address | City/State/Zipcode | Phone Number | | Organization | | | | + +---------+ + + | EXTERNAL LAB | | | | + +---------+ + + C-Reactive Protein (03/03/2014 4:28 AM PST) + + + + + + | Component | Value | Ref Range | Performed | Pathologist | | | | | At | Signature | + + + + + + | CRP | 12.2 (H)Comment: Testing | mg/dL | EXTERNAL | | | | performed at [facility], [address] | LAB | | | | [address], | | | | | | [place] [address] | | | | + + + + + + + + | Specimen | + + | Blood specimen | | (specimen) | + + + +---------+ + + | Performing | Address | City/State/Zipcode | Phone Number | | Organization | | | | + +---------+ + + | EXTERNAL LAB | | | | + +---------+ + + Phosphorus (03/03/2014 4:28 AM PST) + + + + + + | Component | Value | Ref Range | Performed | Pathologist | | | | | At | Signature | + + + + + + | PHOSPHORUS | 4.1Comment: Testing | 2.3 - 4.8 mg/dL | EXTERNAL | | | | performed at [facility], [address] | | LAB | | | | [address], | | | | | | [place] [address] | | | | + + + + + + + + | Specimen | + + | | + + + +---------+ + + | Performing | Address | City/State/Zipcode | Phone Number | | Organization | | | | + +---------+ + + | EXTERNAL LAB | | | | + +---------+ + + Magnesium (03/03/2014 4:28 AM PST) + + + + + + | Component | Value | Ref Range | Performed | Pathologist | | | | | At | Signature | + + + + + + | Magnesium | 1.5 (L)Comment: Testing | 1.7 - 2.4 mg/dL | EXTERNAL | | | | performed at [facility], [address] | | LAB | | | | [address], | | | | | | [place] [address] | | | | + + + + + + + + | Specimen | + + | | + + + +---------+ + + | Performing | Address | City/State/Zipcode | Phone Number | | Organization | | | | + +---------+ + + | EXTERNAL LAB | | | | + +---------+ + + Comprehensive Metabolic Panel (03/03/2014 4:28 AM PST) + + + + + + | Component | Value | Ref Range | Performed | Pathologist | | | | | At | Signature | + + + + + + | Na | 139Comment: Testing | 135 - 143 | EXTERNAL | | | | performed at [facility], [address] | mmol/L | LAB | | | | [address], | | | | | | [place] [address] | | | | + + + + + + | K | 3.8Comment: Testing | 3.5 - 4.9 | EXTERNAL | | | | performed at [facility], [address] | mmol/L | LAB | | | | [address], | | | | | | [place] [address] | | | | + + + + + + | Cl | 112 (H)Comment: Testing | 99 - 109 mmol/L | EXTERNAL | | | | performed at [facility], [address] | | LAB | | | | [address], | | | | | | [place] [address] | | | | + + + + + + | CO2 | 21 (L)Comment: Testing | 23 - 32 mmol/L | EXTERNAL | | | | performed at [facility], [address] | | LAB | | | | [address], | | | | | | [place] [address] | | | | + + + + + + | Anion Gap | 10Comment: Testing | 5 - 20 mmol/L | EXTERNAL | | | | performed at [facility], [address] | | LAB | | | | [address], | | | | | | [place] [address] | | | | + + + + + + | Glucose, | 72Comment: Testing | 65 - 99 mg/dL | EXTERNAL | | | Fasting | performed at [facility], [address] | | LAB | | | | [address], | | | | | | [place] [address] | | | | + + + + + + | BUN | 6 (L)Comment: Testing | 8 - 25 mg/dL | EXTERNAL | | | | performed at [facility], [address] | | LAB | | | | [address], | | | | | | [place] [address] | | | | + + + + + + | Creatinine | 0.61Comment: Testing | 0.50 - 1.00 | EXTERNAL | | | | performed at [facility], [address] | mg/dL | LAB | | | | [address], | | | | | | [place] [address] | | | | + + + + + + | BUN/Creatin | 10Comment: Testing | | EXTERNAL | | | ine Ratio | performed at [facility], [address] | | LAB | | | | [address], | | | | | | [place] [address] | | | | + + + + + + | Calcium | 8.0 (L)Comment: Testing | 8.5 - 10.2 | EXTERNAL | | | | performed at [facility], [address] | mg/dL | LAB | | | | [address], | | | | | | [place] [address] | | | | + + + + + + | Protein, | 5.2 (L)Comment: Testing | 6.3 - 8.2 g/dL | EXTERNAL | | | Total | performed at [facility], [address] | | LAB | | | | [address], | | | | | | [place] [address] | | | | + + + + + + | Albumin | 2.1 (L)Comment: Testing | 3.6 - 5.0 g/dL | EXTERNAL | | | | performed at [facility], [address] | | LAB | | | | [address], | | | | | | [place] [address] | | | | + + + + + + | Globulin | 3.1Comment: Testing | 1.3 - 4.9 g/dL | EXTERNAL | | | | performed at [facility], [address] | | LAB | | | | [address], | | | | | | [place] [address] | | | | + + + + + + | A/G Ratio | 0.7 (L)Comment: Testing | 1.0 - 2.4 | EXTERNAL | | | | performed at [facility], [address] | | LAB | | | | [address], | | | | | | [place] [address] | | | | + + + + + + | Bilirubin | 0.4Comment: Testing | 0.1 - 1.5 mg/dL | EXTERNAL | | | Total | performed at [facility], [address] | | LAB | | | | [address], | | | | | | [place] [address] | | | | + + + + + + | ALP, | 131 (H)Comment: Testing | 35 - 115 U/L | EXTERNAL | | | External | performed at [facility], [address] | | LAB | | | | [address], | | | | | | [place] [address] | | | | + + + + + + | AST | 19Comment: Testing | 10 - 45 U/L | EXTERNAL | | | | performed at [facility], [address] | | LAB | | | | [address], | | | | | | [place] [address] | | | | + + + + + + | ALT | 10Comment: Testing | 10 - 65 U/L | EXTERNAL | | | | performed at [facility], [address] | | LAB | | | | [address], | | | | | | [place] [address] | | | | + + + + + + | Estimated | >60Comment: GFR <60: | mL/min/1.73m2 | EXTERNAL | | | GFR | CHRONIC KIDNEY DISEASE, | | LAB | | | | IF FOUND OVER A 3 MONTH | | | | | | PERIOD.GFR <15: KIDNEY | | | | | | FAILURE.FOR | | | | | | AMERICANS, MULTIPLY THE | | | | | | CALCULATED GFR BY | | | | | | 1.210.Testing performed | | | | | | at [facility], [address] | | | | | | [address], | | | | | | [place] [address] | | | | + + + + + + + + | Specimen | + + | Blood specimen | | (specimen) | + + + +---------+ + + | Performing | Address | City/State/Zipcode | Phone Number | | Organization | | | | + +---------+ + + | EXTERNAL LAB | | | | + +---------+ + + POC Glucose (03/02/2014 9:26 PM PST) + + + + + + | Component | Value | Ref Range | Performed | Pathologist | | | | | At | Signature | + + + + + + | Glucose, | 70Comment: Testing | 65 - 99 mg/dL | EXTERNAL | | | Fingerstick | performed at [facility] | | LAB | | | | [address];[place], [place] | | | | | | [address] | | | | + + + + + + + + | Specimen | + + | | + + + +---------+ + + | Performing | Address | City/State/Zipcode | Phone Number | | Organization | | | | + +---------+ + + | EXTERNAL LAB | | | | + +---------+ + + POC Glucose (03/02/2014 4:29 PM PST) + + + + + + | Component | Value | Ref Range | Performed | Pathologist | | | | | At | Signature | + + + + + + | Glucose, | 184 (H)Comment: Testing | 65 - 99 mg/dL | EXTERNAL | | | Fingerstick | performed at [facility];[address] | | LAB | | | | [address];[place] | | | | | | [address] | | | | + + + + + + + + | Specimen | + + | | + + + +---------+ + + | Performing | Address | City/State/Zipcode | Phone Number | | Organization | | | | + +---------+ + + | EXTERNAL LAB | | | | + +---------+ + + Vancomycin, Trough (03/02/2014 3:20 PM PST) + + + + + + | Component | Value | Ref Range | Performed | Pathologist | | | | | At | Signature | + + + + + + | Vancomycin | 14.1Comment: 15 to 20 | 10 - 20 ug/mL | EXTERNAL | | | Trough | ug/mL for meningitis, | | LAB | | | | osteomyelitis, | | | | | | endocarditis, sepsis, or | | | | | | healthcare associated | | | | | | pneumonia, or an KEN | | | | | | equal to or greater than | | | | | | 1.0 ug/mLTesting | | | | | | performed at [facility];[address] | | | | | | [address];[place], [place] | | | | | | [address] | | | | + + + + + + + + | Specimen | + + | Blood specimen | | (specimen) | + + + +---------+ + + | Performing | Address | City/State/Zipcode | Phone Number | | Organization | | | | + +---------+ + + | EXTERNAL LAB | | | | + +---------+ + + Potassium (03/02/2014 11:17 AM PST) + + + + + + | Component | Value | Ref Range | Performed | Pathologist | | | | | At | Signature | + + + + + + | K | 3.6Comment: Testing | 3.5 - 4.9 | EXTERNAL | | | | performed at [facility], [address] | mmol/L | LAB | | | | [address], | | | | | | [place] [address] | | | | + + + + + + + + | Specimen | + + | Blood specimen | | (specimen) | + + + +---------+ + + | Performing | Address | City/State/Zipcode | Phone Number | | Organization | | | | + +---------+ + + | EXTERNAL LAB | | | | + +---------+ + + Magnesium (03/02/2014 11:17 AM PST) + + + + + + | Component | Value | Ref Range | Performed | Pathologist | | | | | At | Signature | + + + + + + | Magnesium | 1.5 (L)Comment: Testing | 1.7 - 2.4 mg/dL | EXTERNAL | | | | performed at [facility], [address] | | LAB | | | | [address], | | | | | | [place] [address] | | | | + + + + + + + + | Specimen | + + | Blood specimen | | (specimen) | + + + +---------+ + + | Performing | Address | City/State/Zipcode | Phone Number | | Organization | | | | + +---------+ + + | EXTERNAL LAB | | | | + +---------+ + + POC Glucose (03/02/2014 11:05 AM PST) + + + + + + | Component | Value | Ref Range | Performed | Pathologist | | | | | At | Signature | + + + + + + | Glucose, | 69Comment: Testing | 65 - 99 mg/dL | EXTERNAL | | | Fingerstick | performed at [facility];[address] | | LAB | | | | [address];[place] | | | | | | [address] | | | | + + + + + + + + | Specimen | + + | | + + + +---------+ + + | Performing | Address | City/State/Zipcode | Phone Number | | Organization | | | | + +---------+ + + | EXTERNAL LAB | | | | + +---------+ + + HISTORICAL MICROBIOLOGY RESULT (03/02/2014 6:52 AM PST) + + | Specimen | + + | Stool specimen | | (specimen) | + + + + + | Narrative | Performed At | + + + | Toxigenic C Difficile NEGATIVE Testing | EXTERNAL LAB | | performed at [facility];[address] [place] [address];[place] [address] 027 NAP1 BI | | | 027 NAP1 BI PRESUMPTIVE NEGATIVE | | | Detection of 027 NAP1 BI strains of C. difficile is presumptive and | | | for epidemiological purposes and not intended to guide or monitor | | | treatment for C. difficile infections. Testing performed at [facility] | | | [facility];[place] [address] | | + + + + +---------+ + + | Performing | Address | City/State/Zipcode | Phone Number | | Organization | | | | + +---------+ + + | EXTERNAL LAB | | | | + +---------+ + + POC Glucose (03/02/2014 5:03 AM PST) + + + + + + | Component | Value | Ref Range | Performed | Pathologist | | | | | At | Signature | + + + + + + | Glucose, | 153 (H)Comment: Testing | 65 - 99 mg/dL | EXTERNAL | | | Fingerstick | performed at [facility];[address] | | LAB | | | [address];[place] | | | | | | [address] | | | | + + + + + + + + | Specimen | + + | | + + + +---------+ + + | Performing | Address | City/State/Zipcode | Phone Number | | Organization | | | | + +---------+ + + | EXTERNAL LAB | | | | + +---------+ + + Iron and Iron Binding Capacity (03/02/2014 4:13 AM PST) + + + + + + | Component | Value | Ref Range | Performed | Pathologist | | | | | At | Signature | + + + + + + | Iron | 14 (L)Comment: Testing | 30 - 180 ug/dL | EXTERNAL | | | | performed at [facility], [address] | | LAB | | | | [address], | | | | | | [place] [address] | | | | + + + + + + | TIBC | 152 (L)Comment: Testing | 260 - 490 ug/dL | EXTERNAL | | | | performed at [facility], [address] | | LAB | | | | [address], | | | | | | [place] [address] | | | | + + + + + + | Iron | 9 (L)Comment: Testing | 15 - 50 % | EXTERNAL | | | Saturation | performed at [facility], [address] | | LAB | | | | [address], | | | | | | [place] [address] | | | | + + + + + + + + | Specimen | + + | Blood specimen | | (specimen) | + + + +---------+ + + | Performing | Address | City/State/Zipcode | Phone Number | | Organization | | | | + +---------+ + + | EXTERNAL LAB | | | | + +---------+ + + Antistreptolysin O, Quant (03/02/2014 4:13 AM PST) + + + + + + | Component | Value | Ref Range | Performed | Pathologist | | | | | At | Signature | + + + + + + | Anti | <100Comment: Testing | 0 - 250 IU/mL | EXTERNAL | | | Streptolysi | performed at [facility], [address] | | LAB | | | n O | [address], | | | | | | [place] [address] | | | | + + + + + + + + | Specimen | + + | Blood specimen | | (specimen) | + + + +---------+ + + | Performing | Address | City/State/Zipcode | Phone Number | | Organization | | | | + +---------+ + + | EXTERNAL LAB | | | | + +---------+ + + Sedimentation rate, automated (03/02/2014 4:13 AM PST) + + + + + + | Component | Value | Ref Range | Performed | Pathologist | | | | | At | Signature | + + + + + + | Sed Rate | 100 (H)Comment: Testing | 0 - 30 mm/Hr | EXTERNAL | | | | performed at [facility], [address] | | LAB | | | | [address], | | | | | | [place] [address] | | | | + + + + + + + + | Specimen | + + | Blood specimen | | (specimen) | + + + +---------+ + + | Performing | Address | City/State/Zipcode | Phone Number | | Organization | | | | + +---------+ + + | EXTERNAL LAB | | | | + +---------+ + + Retic Count (03/02/2014 4:13 AM PST) + + + + + + | Component | Value | Ref Range | Performed | Pathologist | | | | | At | Signature | + + + + + + | % | 0.9Comment: Testing | 0.4 - 2.7 % | EXTERNAL | | | Reticulocyt | performed at [facility], [address] | | LAB | | | e Count | [address], | | | | | | [place] [address] | | | | + + + [...] + +---------+ + + External Lab: CBC (03/02/2014 4:13 AM PST) + + + + + + | Component | Value | Ref Range | Performed | Pathologist | | | | | At | Signature | + + + + + + | WBC | 17.8 (H)Comment: Testing | 3.8 - 11.0 K/uL | EXTERNAL | | | | performed at [facility], [address] | | LAB | | | | [address], | | | | | | [place] [address] | | | | + + + + + + | Non- | 3.02 (L)Comment: Testing | 3.70 - 5.10 | EXTERNAL | | | Red Blood | performed at [facility], [address] | M/uL | LAB | | | Cells | [address], | | | | | Counted | [place] [address] | | | | + + + + + + | Hemoglobin | 7.8 (L)Comment: Testing | 11.3 - 15.5 | EXTERNAL | | | | performed at [facility], [address] | g/dL | LAB | | | | [address], | | | | | | [place] [address] | | | | + + + + + + | Hematocrit, | 24.9 (L)Comment: Testing | 34.0 - 46.0 % | EXTERNAL | | | POC | performed at [facility], [address] | | LAB | | | | [address], | | | | | | [place] [address] | | | | + + + + + + | MCV | 82.5Comment: Testing | 80.0 - 100.0 fl | EXTERNAL | | | | performed at [facility], [address] | | LAB | | | | [address], | | | | | | [place] [address] | | | | + + + + + + | MCH | 25.9 (L)Comment: Testing | 27.0 - 34.0 pg | EXTERNAL | | | | performed at [facility], [address] | | LAB | | | | [address], | | | | | | [place] [address] | | | | + + + + + + | MCHC | 31.4 (L)Comment: Testing | 32.0 - 35.5 | EXTERNAL | | | | performed at [facility], [address] | g/dL | LAB | | | | [address], | | | | | | [place] [address] | | | | + + + + + + | RDW-CV | 47.3Comment: Testing | 37 - 53 fl | EXTERNAL | | | | performed at [facility], [address] | | LAB | | | | [address], | | | | | | [place] [address] | | | | + + + + + + | Platelet | 286Comment: Testing | 150 - 400 K/uL | EXTERNAL | | | Count | performed at [facility], [address] | | LAB | | | Plasma | [address], | | | | | | [place], [place] [address] | | | | + + + + + + | MPV | 8.0Comment: Testing | fl | EXTERNAL | | | | performed at [facility], [address] | | LAB | | | | [address], | | | | | | [place] [address] | | | | + + + + + + | Differentia | MANUALComment: Testing | | EXTERNAL | | | l Type | performed at [facility], [address] | | LAB | | | | [address], | | | | | | [place], [place] [address] | | | | + + + + + + | Segmented | 58Comment: Testing | % | EXTERNAL | | | Neutrophils | performed at [facility], [address] | | LAB | | | Manual | [address], | | | | | | [place] [address] | | | | + + + + + + | % Bands | 28Comment: Testing | % | EXTERNAL | | | | performed at [facility], [address] | | LAB | | | | [address], | | | | | | [place] [address] | | | | + + + + + + | Lymphocytes | 11Comment: Testing | % | EXTERNAL | | | Manual | performed at [facility], [address] | | LAB | | | | [address], | | | | | | [place] [address] | | | | + + + + + + | Monocytes | 3Comment: Testing | % | EXTERNAL | | | Manual | performed at [facility], [address] | | LAB | | | | [address], | | | | | | [place] [address] | | | | + + + + + + | Absolute | 10.3 (H)Comment: Testing | 1.9 - 7.4 K/uL | EXTERNAL | | | Neutrophils | performed at [facility], [address] | | LAB | | | | [address], | | | | | | [place] [address] | | | | + + + + + + | Bands | 5.0 (H)Comment: Testing | 0 - 0.2 K/uL | EXTERNAL | | | Manual | performed at [facility], [address] | | LAB | | | | [address], | | | | | | [place] [address] | | | | + + + + + + | Absolute | 2.0Comment: Testing | 1.0 - 3.9 K/uL | EXTERNAL | | | Lymphocytes | performed at [facility], [address] | | LAB | | | | [address], | | | | | | [place] [address] | | | | + + + + + + | Absolute | 0.5Comment: Testing | 0 - 0.8 K/uL | EXTERNAL | | | Monocytes | performed at [facility], [address] | | LAB | | | | [facility], | | | | | | [place] [address] | | | | + + + + + + | RBC | NORMAL RBC MORPHComment: | | EXTERNAL | | | Morphology | NORMAL PLT MORPHTesting | | LAB | | | | performed at [facility], [address] | | | | | [address], | | | | | | [place] [address] | | | | + + + + + + + + | Specimen | + + | Blood specimen | | (specimen) | + + + +---------+ + + | Performing | Address | City/State/Zipcode | Phone Number | | Organization | | | | + +---------+ + + | EXTERNAL LAB | | | | + +---------+ + + C-Reactive Protein (03/02/2014 4:13 AM PST) + + + + + + | Component | Value | Ref Range | Performed | Pathologist | | | | | At | Signature | + + + + + + | CRP | 18.9 (H)Comment: Testing | mg/dL | EXTERNAL | | | | performed at [facility], [address] | | LAB | | | | [address], | | | | | | [place] [address] | | | | + + + + + + + + | Specimen | + + | Blood specimen | | (specimen) | + + + +---------+ + + | Performing | Address | City/State/Zipcode | Phone Number | | Organization | | | | + +---------+ + + | EXTERNAL LAB | | | | + +---------+ + + Phosphorus (03/02/2014 4:13 AM PST) + + + + + + | Component | Value | Ref Range | Performed | Pathologist | | | | | At | Signature | + + + + + + | PHOSPHORUS | 3.5Comment: Testing | 2.3 - 4.8 mg/dL | EXTERNAL | | | | performed at [facility], [address] | | LAB | | | | [address], | | | | | | [place] [address] | | | | + + + + + + + + | Specimen | + + | Blood specimen | | (specimen) | + + + +---------+ + + | Performing | Address | City/State/Zipcode | Phone Number | | Organization | | | | + +---------+ + + | EXTERNAL LAB | | | | + +---------+ + + Magnesium (03/02/2014 4:13 AM PST) + + + + + + | Component | Value | Ref Range | Performed | Pathologist | | | | | At | Signature | + + + + + + | Magnesium | 1.3 (L)Comment: Testing | 1.7 - 2.4 mg/dL | EXTERNAL | | | | performed at [facility], [address] | | LAB | | | | [address], | | | | | | [place] [address] | | | | + + + + + + + + | Specimen | + + | Blood specimen | | (specimen) | + + + +---------+ + + | Performing | Address | City/State/Zipcode | Phone Number | | Organization | | | | + +---------+ + + | EXTERNAL LAB | | | | + +---------+ + + Folate (03/02/2014 4:13 AM PST) + + + + + + | Component | Value | Ref Range | Performed | Pathologist | | | | | At | Signature | + + + + + + | Folate | 13.7Comment: Testing | ng/mL | EXTERNAL | | | | performed at [facility], [address] | | LAB | | | | [address], | | | | | | [place] [address] | | | | + + + + + + + + | Specimen | + + | Blood specimen | | (specimen) | + + + +---------+ + + | Performing | Address | City/State/Zipcode | Phone Number | | Organization | | | | + +---------+ + + | EXTERNAL LAB | | | | + +---------+ + + Ferritin (03/02/2014 4:13 AM PST) + + + + + + | Component | Value | Ref Range | Performed | Pathologist | | | | | At | Signature | + + + + + + | Ferritin, | 169Comment: Testing | 6 - 170 ng/mL | EXTERNAL | | | External | performed at [facility], [address] | | LAB | | | | [address], | | | | | | [place] [address] | | | | + + + + + + + + | Specimen | + + | Blood specimen | | (specimen) | + + + +---------+ + + | Performing | Address | City/State/Zipcode | Phone Number | | Organization | | | | + +---------+ + + | EXTERNAL LAB | | | | + +---------+ + + Vitamin B-12 (03/02/2014 4:13 AM PST) + + + + + + | Component | Value | Ref Range | Performed | Pathologist | | | | | At | Signature | + + + + + + | VITAMIN | 570Comment: Testing | 254 - 1,320 | EXTERNAL | | | B-12 | performed at [facility], [address] | pg/mL | LAB | | | | [address], | | | | | | [place], [place] [address] | | | | + + + + + + + + | Specimen | + + | Blood specimen | | (specimen) | + + + +---------+ + + | Performing | Address | City/State/Zipcode | Phone Number | | Organization | | | | + +---------+ + + | EXTERNAL LAB | | | | + +---------+ + + CK Total (03/02/2014 4:13 AM PST) + + + + + + | Component | Value | Ref Range | Performed | Pathologist | | | | | At | Signature | + + + + + + | CK, Total | 95Comment: Testing | 30 - 240 U/L | EXTERNAL | | | | performed at [facility];[address] | | LAB | | | | [address];[place] | | | | | | [address] | | | | + + + + + + + + | Specimen | + + | Blood specimen | | (specimen) | + + + +---------+ + + | Performing | Address | City/State/Zipcode | Phone Number | | Organization | | | | + +---------+ + + | EXTERNAL LAB | | | | + +---------+ + + Vancomycin, Trough (03/02/2014 4:13 AM PST) + + + + + + | Component | Value | Ref Range | Performed | Pathologist | | | | | At | Signature | + + + + + + | Vancomycin | 37.3 ()Comment: 15 to | 10 - 20 ug/mL | EXTERNAL | | | Trough | 20 ug/mL for meningitis, | | LAB | | | | osteomyelitis, | | | | | | endocarditis, sepsis, or | | | | | | healthcare associated | | | | | | pneumonia, or an KEN | | | | | | equal to or greater than | | | | | | 1.0 ug/mLCALLED TO | | | | | | AMINATA Paz RN/4E AT 0447 | | | | | | BY [employer] BACK RESULTS | | | | | | VERIFIEDTesting | | | | | | performed at [facility];[address] | | | | | | [address];[place] | | | | | | [address] | | | | + + + [...] + +---------+ + + Comprehensive Metabolic Panel (03/02/2014 4:13 AM PST) + + + + + + | Component | Value | Ref Range | Performed | Pathologist | | | | | At | Signature | + + + + + + | Na | 137Comment: Testing | 135 - 143 | EXTERNAL | | | | performed at [facility], [address] | mmol/L | LAB | | | | [address], | | | | | | [place] [address] | | | | + + + + + + | K | 3.4 (L)Comment: Testing | 3.5 - 4.9 | EXTERNAL | | | | performed at [facility], [address] | mmol/L | LAB | | | | [address], | | | | | | [place] [address] | | | | + + + + + + | Cl | 111 (H)Comment: Testing | 99 - 109 mmol/L | EXTERNAL | | | | performed at [facility], [address] | | LAB | | | | [address], | | | | | | [place] [address] | | | | + + + + + + | CO2 | 21 (L)Comment: Testing | 23 - 32 mmol/L | EXTERNAL | | | | performed at [facility], [address] | | LAB | | | | [address], | | | | | | [place] [address] | | | | + + + + + + | Anion Gap | 8Comment: Testing | 5 - 20 mmol/L | EXTERNAL | | | | performed at [facility], [address] | | LAB | | | | [address], | | | | | | [place] [address] | | | | + + + + + + | Glucose, | 121 (H)Comment: Testing | 65 - 99 mg/dL | EXTERNAL | | | Fasting | performed at [facility], [address] | | LAB | | | | [address], | | | | | | [place] [address] | | | | + + + + + + | BUN | 7 (L)Comment: Testing | 8 - 25 mg/dL | EXTERNAL | | | | performed at [facility], [address] | | LAB | | | | [address], | | | | | | [place] [address] | | | | + + + + + + | Creatinine | 0.59Comment: Testing | 0.50 - 1.00 | EXTERNAL | | | | performed at [facility], [address] | mg/dL | LAB | | | | [address], | | | | | | [place] [address] | | | | + + + + + + | BUN/Creatin | 12Comment: Testing | | EXTERNAL | | | ine Ratio | performed at [facility], [address] | | LAB | | | | [address], | | | | | | [place] [address] | | | | + + + + + + | Calcium | 7.6 (L)Comment: Testing | 8.5 - 10.2 | EXTERNAL | | | | performed at [facility], [address] | mg/dL | LAB | | | | [address], | | | | | | [place] [address] | | | | + + + + + + | Protein, | 5.1 (L)Comment: Testing | 6.3 - 8.2 g/dL | EXTERNAL | | | Total | performed at [facility], [address] | | LAB | | | | [address], | | | | | | [place] [address] | | | | + + + + + + | Albumin | 2.0 (L)Comment: Testing | 3.6 - 5.0 g/dL | EXTERNAL | | | | performed at [facility], [address] | | LAB | | | | [address], | | | | | | [place] [address] | | | | + + + + + + | Globulin | 3.1Comment: Testing | 1.3 - 4.9 g/dL | EXTERNAL | | | | performed at [facility], [address] | | LAB | | | | [address], | | | | | | [place] [address] | | | | + + + + + + | A/G Ratio | 0.6 (L)Comment: Testing | 1.0 - 2.4 | EXTERNAL | | | | performed at [facility], [address] | | LAB | | | | [address], | | | | | | [place] [address] | | | | + + + + + + | Bilirubin | 0.4Comment: Testing | 0.1 - 1.5 mg/dL | EXTERNAL | | | Total | performed at [facility], [address] | | LAB | | | | [address], | | | | | | [place] [address] | | | | + + + + + + | ALP, | 129 (H)Comment: Testing | 35 - 115 U/L | EXTERNAL | | | External | performed at [facility], [address] | | LAB | | | | [address], | | | | | | [place] [address] | | | | + + + + + + | AST | 20Comment: Testing | 10 - 45 U/L | EXTERNAL | | | | performed at [facility], [address] | | LAB | | | | [address], | | | | | | [place] [address] | | | | + + + + + + | ALT | 10Comment: Testing | 10 - 65 U/L | EXTERNAL | | | | performed at [facility], [address] | | LAB | | | | [address], | | | | | | [place] [address] | | | | + + + + + + | Estimated | >60Comment: GFR <60: | mL/min/1.73m2 | EXTERNAL | | | GFR | CHRONIC KIDNEY DISEASE, | | LAB | | | | IF FOUND OVER A 3 MONTH | | | | | | PERIOD.GFR <15: KIDNEY | | | | | | FAILURE.FOR | | | | | | AMERICANS, MULTIPLY THE | | | | | | CALCULATED GFR BY | | | | | | 1.210.Testing performed | | | | | | at [facility], [address] | | | | | | [address], | | | | | | [place] [address] | | | | + + + + + + + + | Specimen | + + | Blood specimen | | (specimen) | + + + +---------+ + + | Performing | Address | City/State/Zipcode | Phone Number | | Organization | | | | + +---------+ + + | EXTERNAL LAB | | | | + +---------+ + + POC Glucose (03/01/2014 8:58 PM PST) + + + + + + | Component | Value | Ref Range | Performed | Pathologist | | | | | At | Signature | + + + + + + | Glucose, | 110 (H)Comment: Testing | 65 - 99 mg/dL | EXTERNAL | | | Fingerstick | performed at [facility];[address] | | LAB | | | | [address];[place], [place] | | | | | | [address] | | | | + + + + + + + + | Specimen | + + | | + + + +---------+ + + | Performing | Address | City/State/Zipcode | Phone Number | | Organization | | | | + +---------+ + + | EXTERNAL LAB | | | | + +---------+ + + Potassium (03/01/2014 4:56 PM PST) + + + + + + | Component | Value | Ref Range | Performed | Pathologist | | | | | At | Signature | + + + + + + | K | 3.9Comment: Testing | 3.5 - 4.9 | EXTERNAL | | | | performed at [facility], [address] | mmol/L | LAB | | | | [address], | | | | | | [place] [address] | | | | + + + + + + + + | Specimen | + + | Blood specimen | | (specimen) | + + + +---------+ + + | Performing | Address | City/State/Zipcode | Phone Number | | Organization | | | | + +---------+ + + | EXTERNAL LAB | | | | + +---------+ + + POC Glucose (03/01/2014 4:26 PM PST) + + + + + + | Component | Value | Ref Range | Performed | Pathologist | | | | | At | Signature | + + + + + + | Glucose, | 233 (H)Comment: Testing | 65 - 99 mg/dL | EXTERNAL | | | Fingerstick | performed at [facility];[address] | | LAB | | | | [address];[place] | | | | | | [address] | | | | + + + + + + + + | Specimen | + + | | + + + +---------+ + + | Performing | Address | City/State/Zipcode | Phone Number | | Organization | | | | + +---------+ + + | EXTERNAL LAB | | | | + +---------+ + + POC Glucose (03/01/2014 11:21 AM PST) + + + + + + | Component | Value | Ref Range | Performed | Pathologist | | | | | At | Signature | + + + + + + | Glucose, | 153 (H)Comment: Testing | 65 - 99 mg/dL | EXTERNAL | | | Fingerstick | performed at [facility];[address] | | LAB | | | | [address];[place] | | | | | | [address] | | | | + + + + + + + + | Specimen | + + | | + + + +---------+ + + | Performing | Address | City/State/Zipcode | Phone Number | | Organization | | | | + +---------+ + + | EXTERNAL LAB | | | | + +---------+ + + External Lab: CBC (03/01/2014 6:11 AM PST) + + + + + + | Component | Value | Ref Range | Performed | Pathologist | | | | | At | Signature | + + + + + + | WBC | 20.4 (H)Comment: Testing | 3.8 - 11.0 K/uL | EXTERNAL | | | | performed at [facility];[address] | | LAB | | | | [address];[place] | | | | | | [address] | | | | + + + + + + | Non- | 2.88 (L)Comment: Testing | 3.70 - 5.10 | EXTERNAL | | | Red Blood | performed at [facility];[address] | M/uL | LAB | | | Cells | [address];[place] | | | | | Counted | [address] | | | | + + + + + + | Hemoglobin | 7.6 (L)Comment: Testing | 11.3 - 15.5 | EXTERNAL | | | | performed at [facility];[address] | g/dL | LAB | | | | [address];[place] | | | | | | [address] | | | | + + + + + + | Hematocrit, | 23.7 (L)Comment: Testing | 34.0 - 46.0 % | EXTERNAL | | | POC | performed at [facility];[address] | | LAB | | | | [address];[place] | | | | | | [address] | | | | + + + + + + | MCV | 82.4Comment: Testing | 80.0 - 100.0 fl | EXTERNAL | | | | performed at [facility];[address] | | LAB | | | | [address];[place] | | | | | | [address] | | | | + + + + + + | MCH | 26.5 (L)Comment: Testing | 27.0 - 34.0 pg | EXTERNAL | | | | performed at [facility];[address] | | LAB | | | | [address];[place] | | | | | | [address] | | | | + + + + + + | MCHC | 32.1Comment: Testing | 32.0 - 35.5 | EXTERNAL | | | | performed at [facility];[address] | g/dL | LAB | | | | [address];[place] | | | | | | [address] | | | | + + + + + + | RDW-CV | 47.7Comment: Testing | 37 - 53 fl | EXTERNAL | | | | performed at [facility];[address] | | LAB | | | | [address];[place] | | | | | | [address] | | | | + + + + + + | Platelet | 291Comment: Testing | 150 - 400 K/uL | EXTERNAL | | | Count | performed at [facility];[address] | | LAB | | | Plasma | [address];[place] | | | | | | [address] | | | | + + + + + + | MPV | 7.7Comment: Testing | fl | EXTERNAL | | | | performed at [facility];[address] | | LAB | | | | [address];[place] | | | | | | [address] | | | | + + + + + + | Differentia | MANUALComment: Testing | | EXTERNAL | | | l Type | performed at [facility];[address] | | LAB | | | | [address];[place] | | | | | | [address] | | | | + + + + + + | Segmented | 66Comment: Testing | % | EXTERNAL | | | Neutrophils | performed at [facility];[address] | | LAB | | | Manual | [address];[place] | | | | | | [address] | | | | + + + + + + | % Bands | 18Comment: Testing | % | EXTERNAL | | | | performed at [facility];[address] | | LAB | | | | [address];[place] | | | | | | [address] | | | | + + + + + + | Lymphocytes | 10Comment: Testing | % | EXTERNAL | | | Manual | performed at [facility];[address] | | LAB | | | | [address];[place] | | | | | | [address] | | | | + + + + + + | % Atypical | 2Comment: Testing | % | EXTERNAL | | | Lymphocytes | performed at [facility];[address] | | LAB | | | | [address];[place] | | | | | | [address] | | | | + + + + + + | Monocytes | 3Comment: Testing | % | EXTERNAL | | | Manual | performed at [facility];[address] | | LAB | | | | [address];[place] | | | | | | [address] | | | | + + + + + + | Eosinophils | 1Comment: Testing | % | EXTERNAL | | | Manual | performed at [facility];[address] | | LAB | | | | [address];[place] | | | | | | [address] | | | | + + + + + + | Absolute | 13.5 (H)Comment: Testing | 1.9 - 7.4 K/uL | EXTERNAL | | | Neutrophils | performed at [facility];[address] | | LAB | | | | [address];[place] | | | | | | [address] | | | | + + + + + + | Bands | 3.7 (H)Comment: Testing | 0 - 0.2 K/uL | EXTERNAL | | | Manual | performed at [facility];[address] | | LAB | | | | [address];[place] | | | | | | [address] | | | | + + + + + + | Absolute | 2.0Comment: Testing | 1.0 - 3.9 K/uL | EXTERNAL | | | Lymphocytes | performed at [facility];[address] | | LAB | | | | [address];[place] | | | | | | [address] | | | | + + + + + + | Absolute | 0.4 (H)Comment: Testing | K/uL | EXTERNAL | | | Atypical | performed at [facility];[address] | | LAB | | | Lymphocytes | [address];[place] | | | | | | [address] | | | | + + + + + + | Absolute | 0.6Comment: Testing | 0 - 0.8 K/uL | EXTERNAL | | | Monocytes | performed at [facility];[address] | | LAB | | | | [address];[place] | | | | | | [address] | | | | + + + + + + | Absolute | 0.2Comment: Testing | 0 - 0.5 K/uL | EXTERNAL | | | Eosinophils | performed at [facility];[address] | | LAB | | | | [address];[place] | | | | | | [address] | | | | + + + + + + | Platelet | ADEQUATEComment: Testing | | EXTERNAL | | | Estimate | performed at [facility];[address] | | LAB | | | | [address];[place] | | | | | | [address] | | | | + + + + + + | RBC | NORMALComment: Testing | | EXTERNAL | | | Morphology | performed at [facility];[address] | | LAB | | | | [address];[place], [place] | | | | | | [address] | | | | + + + + + + + + | Specimen | + + | Blood specimen | | (specimen) | + + + +---------+ + + | Performing | Address | City/State/Zipcode | Phone Number | | Organization | | | | + +---------+ + + | EXTERNAL LAB | | | | + +---------+ + + Phosphorus (03/01/2014 6:11 AM PST) + + + + + + | Component | Value | Ref Range | Performed | Pathologist | | | | | At | Signature | + + + + + + | PHOSPHORUS | 3.7Comment: Testing | 2.3 - 4.8 mg/dL | EXTERNAL | | | | performed at [facility];[address] | | LAB | | | | [address];[place], [place] | | | | | | [address] | | | | + + + + + + + + | Specimen | + + | Blood specimen | | (specimen) | + + + +---------+ + + | Performing | Address | City/State/Zipcode | Phone Number | | Organization | | | | + +---------+ + + | EXTERNAL LAB | | | | + +---------+ + + Magnesium (03/01/2014 6:11 AM PST) + + + + + + | Component | Value | Ref Range | Performed | Pathologist | | | | | At | Signature | + + + + + + | Magnesium | 1.7Comment: Testing | 1.7 - 2.4 mg/dL | EXTERNAL | | | | performed at [facility];[address] | | LAB | | | | [address];[place], [place] | | | | | | [address] | | | | + + + [...] + +---------+ + + Comprehensive Metabolic Panel (03/01/2014 6:11 AM PST) + + + + + + | Component | Value | Ref Range | Performed | Pathologist | | | | | At | Signature | + + + + + + | Na | 144 (H)Comment: Testing | 135 - 143 | EXTERNAL | | | | performed at [facility];[address] | mmol/L | LAB | | | | [address];[place] | | | | | | [address] | | | | + + + + + + | K | 3.6Comment: Testing | 3.5 - 4.9 | EXTERNAL | | | | performed at [facility];[address] | mmol/L | LAB | | | | [address];[place] | | | | | | [address] | | | | + + + + + + | Cl | 115 (H)Comment: Testing | 99 - 109 mmol/L | EXTERNAL | | | | performed at [facility];[address] | | LAB | | | | [address];[place] | | | | | | [address] | | | | + + + + + + | CO2 | 21 (L)Comment: Testing | 23 - 32 mmol/L | EXTERNAL | | | | performed at [facility];[address] | | LAB | | | | [address];[place] | | | | | | [address] | | | | + + + + + + | Anion Gap | 12Comment: Testing | 5 - 20 mmol/L | EXTERNAL | | | | performed at [facility];[address] | | LAB | | | | [address];[place] | | | | | | [address] | | | | + + + + + + | Glucose, | 70Comment: Testing | 65 - 99 mg/dL | EXTERNAL | | | Fasting | performed at [facility];[address] | | LAB | | | | [address];[place] | | | | | | [address] | | | | + + + + + + | BUN | 11Comment: Testing | 8 - 25 mg/dL | EXTERNAL | | | | performed at [facility];[address] | | LAB | | | | [address];[place] | | | | | | [address] | | | | + + + + + + | Creatinine | 0.86Comment: Testing | 0.50 - 1.00 | EXTERNAL | | | | performed at [facility];[address] | mg/dL | LAB | | | | [address];[place] | | | | | | [address] | | | | + + + + + + | BUN/Creatin | 13Comment: Testing | | EXTERNAL | | | ine Ratio | performed at [facility];[address] | | LAB | | | | [address];[place] | | | | | | [address] | | | | + + + + + + | Calcium | 7.2 (L)Comment: Testing | 8.5 - 10.2 | EXTERNAL | | | | performed at [facility];[address] | mg/dL | LAB | | | | [address];[place] | | | | | | [address] | | | | + + + + + + | Protein, | 4.9 (L)Comment: Testing | 6.3 - 8.2 g/dL | EXTERNAL | | | Total | performed at [facility];[address] | | LAB | | | | [address];[place] | | | | | | [address] | | | | + + + + + + | Albumin | 1.4 (L)Comment: Testing | 3.6 - 5.0 g/dL | EXTERNAL | | | | performed at [facility];[address] | | LAB | | | | [address];[place] | | | | | | [address] | | | | + + + + + + | Globulin | 3.5Comment: Testing | 1.3 - 4.9 g/dL | EXTERNAL | | | | performed at [facility];[address] | | LAB | | | | [address];[place] | | | | | | [address] | | | | + + + + + + | A/G Ratio | 0.4 (L)Comment: Testing | 1.0 - 2.4 | EXTERNAL | | | | performed at [facility];[address] | | LAB | | | | [address];[place] | | | | | | [address] | | | | + + + + + + | Bilirubin | 0.5Comment: Testing | 0.1 - 1.5 mg/dL | EXTERNAL | | | Total | performed at [facility];[address] | | LAB | | | | [address];[place] | | | | | | [address] | | | | + + + + + + | ALP, | 109Comment: Testing | 35 - 115 U/L | EXTERNAL | | | External | performed at [facility];[address] | | LAB | | | | [address];[place] | | | | | | [address] | | | | + + + + + + | AST | 15Comment: Testing | 10 - 45 U/L | EXTERNAL | | | | performed at [facility];[address] | | LAB | | | | [address];[place] | | | | | | [address] | | | | + + + + + + | ALT | 12Comment: Testing | 10 - 65 U/L | EXTERNAL | | | | performed at [facility];[address] | | LAB | | | | [facility];[place], [place] | | | | | | [address] | | | | + + + + + + | Estimated | >60Comment: GFR <60: | mL/min/1.73m2 | EXTERNAL | | | GFR | CHRONIC KIDNEY DISEASE, | | LAB | | | | IF FOUND OVER A 3 MONTH | | | | | | PERIOD.GFR <15: KIDNEY | | | | | | FAILURE.FOR | | | | | | AMERICANS, MULTIPLY THE | | | | | | CALCULATED GFR BY | | | | | | 1.210.Testing performed | | | | | | at [facility];[address] [facility] | | | | | [address];[place] [address] | | | | + + + + + + + + | Specimen | + + | Blood specimen | | (specimen) | + + + +---------+ + + | Performing | Address | City/State/Zipcode | Phone Number | | Organization | | | | + +---------+ + + | EXTERNAL LAB | | | | + +---------+ + + POC Glucose (03/01/2014 5:35 AM PST) + + + + + + | Component | Value | Ref Range | Performed | Pathologist | | | | | At | Signature | + + + + + + | Glucose, | 80Comment: Testing | 65 - 99 mg/dL | EXTERNAL | | | Fingerstick | performed at [facility];[address] | | LAB | | | | [address];[place] | | | | | | [address] | | | | + + + + + + + + | Specimen | + + | | + + + +---------+ + + | Performing | Address | City/State/Zipcode | Phone Number | | Organization | | | | + +---------+ + + | EXTERNAL LAB | | | | + +---------+ + + POC Glucose (02/28/2014 10:49 PM PST) + + + + + + | Component | Value | Ref Range | Performed | Pathologist | | | | | At | Signature | + + + + + + | Glucose, | 77Comment: Testing | 65 - 99 mg/dL | EXTERNAL | | | Fingerstick | performed at [facility] | | LAB | | | | [address];[place], [place] | | | | | | [address] | | | | + + + + + + + + | Specimen | + + | | + + + +---------+ + + | Performing | Address | City/State/Zipcode | Phone Number | | Organization | | | | + +---------+ + + | EXTERNAL LAB | | | | + +---------+ + + POC Glucose (02/28/2014 7:45 PM PST) + + + + + + | Component | Value | Ref Range | Performed | Pathologist | | | | | At | Signature | + + + + + + | Glucose, | 78Comment: Testing | 65 - 99 mg/dL | EXTERNAL | | | Fingerstick | performed at [facility];[address] | | LAB | | | | [address];[place], [place] | | | | | | [address] | | | | + + + + + + + + | Specimen | + + | | + + + +---------+ + + | Performing | Address | City/State/Zipcode | Phone Number | | Organization | | | | + +---------+ + + | EXTERNAL LAB | | | | + +---------+ + + Type and Screen (02/28/2014 6:20 PM PST) + + + + + + | Component | Value | Ref Range | Performed | Pathologist | | | | | At | Signature | + + + + + + | ABO Rh | O POSITIVE | | EXTERNAL | | | | | | LAB | | + + + + + + | ABO Rh | Testing performed at | | EXTERNAL | | | | [facility];[address] | | LAB | | | [address];[place] [address] | | | | + + + + + + | Antibody | NEGATIVE | | EXTERNAL | | | Screen | | | LAB | | + + + + + + | Antibody | Testing performed at | | EXTERNAL | | | Screen | [facility];[address] | | LAB | | | | [address];[place] [address] | | | | + + + + + + | BB BAND | [id number] | | EXTERNAL | | | | | | LAB | | + + + + + + | BB BAND | Testing performed at | | EXTERNAL | | | | [facility];[address] | | LAB | | | | [address];[place] [address] | | | | + + + + + + + + | Specimen | + + | Blood specimen | | (specimen) | + + + +---------+ + + | Performing | Address | City/State/Zipcode | Phone Number | | Organization | | | | + +---------+ + + | EXTERNAL LAB | | | | + +---------+ + + POC Glucose (02/28/2014 3:15 PM PST) + + + + + + | Component | Value | Ref Range | Performed | Pathologist | | | | | At | Signature | + + + + + + | Glucose, | 111 (H)Comment: Testing | 65 - 99 mg/dL | EXTERNAL | | | Fingerstick | performed at [facility];[address] | | LAB | | | | [address];[place] | | | | | | [address] | | | | + + + + + + + + | Specimen | + + | | + + + +---------+ + + | Performing | Address | City/State/Zipcode | Phone Number | | Organization | | | | + +---------+ + + | EXTERNAL LAB | | | | + +---------+ + + POC Glucose (02/28/2014 11:08 AM PST) + + + + + + | Component | Value | Ref Range | Performed | Pathologist | | | | | At | Signature | + + + + + + | Glucose, | 122 (H)Comment: Testing | 65 - 99 mg/dL | EXTERNAL | | | Fingerstick | performed at [facility];[address] | | LAB | | | | [address];[place] | | | | | | [address] | | | | + + + + + + + + | Specimen | + + | | + + + +---------+ + + | Performing | Address | City/State/Zipcode | Phone Number | | Organization | | | | + +---------+ + + | EXTERNAL LAB | | | | + +---------+ + + POC Glucose (02/28/2014 5:46 AM PST) + + + + + + | Component | Value | Ref Range | Performed | Pathologist | | | | | At | Signature | + + + + + + | Glucose, | 93Comment: Testing | 65 - 99 mg/dL | EXTERNAL | | | Fingerstick | performed at [facility];[address] | | LAB | | | | [address];[place], [place] | | | | | | [address] | | | | + + + + + + + + | Specimen | + + | | + + + +---------+ + + | Performing | Address | City/State/Zipcode | Phone Number | | Organization | | | | + +---------+ + + | EXTERNAL LAB | | | | + +---------+ + + External Lab: CBC (02/28/2014 5:32 AM PST) + + + + + + | Component | Value | Ref Range | Performed | Pathologist | | | | | At | Signature | + + + + + + | WBC | 17.9 (H)Comment: Testing | 3.8 - 11.0 K/uL | EXTERNAL | | | | performed at [facility], [address] | | LAB | | | | [address], | | | | | | [place] [address] | | | | + + + + + + | Non- | 3.38 (L)Comment: Testing | 3.70 - 5.10 | EXTERNAL | | | Red Blood | performed at [facility], [address] | M/uL | LAB | | | Cells | [address], | | | | | Counted | [place] [address] | | | | + + + + + + | Hemoglobin | 9.0 (L)Comment: Testing | 11.3 - 15.5 | EXTERNAL | | | | performed at [facility], [address] | g/dL | LAB | | | | [address], | | | | | | [place] [address] | | | | + + + + + + | Hematocrit, | 28.4 (L)Comment: Testing | 34.0 - 46.0 % | EXTERNAL | | | POC | performed at [facility], [address] | | LAB | | | | [address], | | | | | | [place] [address] | | | | + + + + + + | MCV | 84.0Comment: Testing | 80.0 - 100.0 fl | EXTERNAL | | | | performed at [facility], [address] | | LAB | | | | [address], | | | | | | [place] [address] | | | | + + + + + + | MCH | 26.6 (L)Comment: Testing | 27.0 - 34.0 pg | EXTERNAL | | | | performed at [facility], [address] | | LAB | | | | [address], | | | | | | [place] [address] | | | | + + + + + + | MCHC | 31.7 (L)Comment: Testing | 32.0 - 35.5 | EXTERNAL | | | | performed at [facility], [address] | g/dL | LAB | | | | [address], | | | | | | [place] [address] | | | | + + + + + + | RDW-CV | 47.7Comment: Testing | 37 - 53 fl | EXTERNAL | | | | performed at [facility], [address] | | LAB | | | | [address], | | | | | | [place] [address] | | | | + + + + + + | Platelet | 323Comment: Testing | 150 - 400 K/uL | EXTERNAL | | | Count | performed at [facility], [address] | | LAB | | | Plasma | [address], | | | | | | [place] [address] | | | | + + + + + + | MPV | 8.1Comment: Testing | fl | EXTERNAL | | | | performed at [facility], [address] | | LAB | | | | [address], | | | | | | [place] [address] | | | | + + + + + + | Differentia | MANUALComment: Testing | | EXTERNAL | | | l Type | performed at [facility], [address] | | LAB | | | | [address], | | | | | | [place] [address] | | | | + + + + + + | Segmented | 68Comment: Testing | % | EXTERNAL | | | Neutrophils | performed at [facility], [address] | | LAB | | | Manual | [address], | | | | | | [place] [address] | | | | + + + + + + | % Bands | 21Comment: Testing | % | EXTERNAL | | | | performed at [facility], [address] | | LAB | | | | [address], | | | | | | [place] [address] | | | | + + + + + + | Lymphocytes | 9Comment: Testing | % | EXTERNAL | | | Manual | performed at [facility], [address] | | LAB | | | | [address], | | | | | | [place] [address] | | | | + + + + + + | Monocytes | 2Comment: Testing | % | EXTERNAL | | | Manual | performed at [facility], [address] | | LAB | | | [address], | | | | | | [place] [address] | | | | + + + + + + | Absolute | 12.1 (H)Comment: Testing | 1.9 - 7.4 K/uL | EXTERNAL | | | Neutrophils | performed at [facility], [address] | | LAB | | | | [address], | | | | | | [place] [address] | | | | + + + + + + | Bands | 3.8 (H)Comment: Testing | 0 - 0.2 K/uL | EXTERNAL | | | Manual | performed at [facility], [address] | | LAB | | | | [address], | | | | | | [place] [address] | | | | + + + + + + | Absolute | 1.6Comment: Testing | 1.0 - 3.9 K/uL | EXTERNAL | | | Lymphocytes | performed at [facility], [address] | | LAB | | | | [address], | | | | | | [place] [address] | | | | + + + + + + | Absolute | 0.4Comment: Testing | 0 - 0.8 K/uL | EXTERNAL | | | Monocytes | performed at [facility], [address] | | LAB | | | | [address], | | | | | | [place] [address] | | | | + + + + + + | RBC | NORMAL PLT MORPHComment: | | EXTERNAL | | | Morphology | NORMAL RBC MORPHTesting | | LAB | | | | performed at [facility], [address] | | | | | [address], | | | | | | [place] [address] | | | | + + + + + + + + | Specimen | + + | Blood specimen | | (specimen) | + + + +---------+ + + | Performing | Address | City/State/Zipcode | Phone Number | | Organization | | | | + +---------+ + + | EXTERNAL LAB | | | | + +---------+ + + Phosphorus (02/28/2014 5:32 AM PST) + + + + + + | Component | Value | Ref Range | Performed | Pathologist | | | | | At | Signature | + + + + + + | PHOSPHORUS | 2.8Comment: Testing | 2.3 - 4.8 mg/dL | EXTERNAL | | | | performed at [facility], [address] | | LAB | | | | [address], | | | | | | [place] [address] | | | | + + + + + + + + | Specimen | + + | Blood specimen | | (specimen) | + + + +---------+ + + | Performing | Address | City/State/Zipcode | Phone Number | | Organization | | | | + +---------+ + + | EXTERNAL LAB | | | | + +---------+ + + Magnesium (02/28/2014 5:32 AM PST) + + + + + + | Component | Value | Ref Range | Performed | Pathologist | | | | | At | Signature | + + + + + + | Magnesium | 1.6 (L)Comment: Testing | 1.7 - 2.4 mg/dL | EXTERNAL | | | | performed at [facility], [address] | | LAB | | | | [address], | | | | | | [place] [address] | | | | + + + [...] + +---------+ + + Comprehensive Metabolic Panel (02/28/2014 5:32 AM PST) + + + + + + | Component | Value | Ref Range | Performed | Pathologist | | | | | At | Signature | + + + + + + | Na | 137Comment: Testing | 135 - 143 | EXTERNAL | | | | performed at [facility], [address] | mmol/L | LAB | | | | [address], | | | | | | [place] [address] | | | | + + + + + + | K | 3.4 (L)Comment: Testing | 3.5 - 4.9 | EXTERNAL | | | | performed at [facility], [address] | mmol/L | LAB | | | | [address], | | | | | | [place] [address] | | | | + + + + + + | Cl | 110 (H)Comment: Testing | 99 - 109 mmol/L | EXTERNAL | | | | performed at [facility], [address] | | LAB | | | | [address], | | | | | | [place] [address] | | | | + + + + + + | CO2 | 22 (L)Comment: Testing | 23 - 32 mmol/L | EXTERNAL | | | | performed at [facility], [address] | | LAB | | | | [address], | | | | | | [place] [address] | | | | + + + + + + | Anion Gap | 8Comment: Testing | 5 - 20 mmol/L | EXTERNAL | | | | performed at [facility], [address] | | LAB | | | | [address], | | | | | | [place] [address] | | | | + + + + + + | Glucose, | 71Comment: Testing | 65 - 99 mg/dL | EXTERNAL | | | Fasting | performed at [facility], [address] | | LAB | | | | [address], | | | | | | [place] [address] | | | | + + + + + + | BUN | 11Comment: Testing | 8 - 25 mg/dL | EXTERNAL | | | | performed at [facility], [address] | | LAB | | | | [address], | | | | | | [place] [address] | | | | + + + + + + | Creatinine | 0.67Comment: Testing | 0.50 - 1.00 | EXTERNAL | | | | performed at [facility], [address] | mg/dL | LAB | | | | [address], | | | | | | [place] [address] | | | | + + + + + + | BUN/Creatin | 16Comment: Testing | | EXTERNAL | | | ine Ratio | performed at [facility], [address] | | LAB | | | | [address], | | | | | | [place] [address] | | | | + + + + + + | Calcium | 7.7 (L)Comment: Testing | 8.5 - 10.2 | EXTERNAL | | | | performed at [facility], [address] | mg/dL | LAB | | | | [address], | | | | | | [place] [address] | | | | + + + + + + | Protein, | 5.3 (L)Comment: Testing | 6.3 - 8.2 g/dL | EXTERNAL | | | Total | performed at [facility], [address] | | LAB | | | | [address], | | | | | | [place] [address] | | | | + + + + + + | Albumin | 2.2 (L)Comment: Testing | 3.6 - 5.0 g/dL | EXTERNAL | | | | performed at [facility], [address] | | LAB | | | | [address], | | | | | | [place] [address] | | | | + + + + + + | Globulin | 3.1Comment: Testing | 1.3 - 4.9 g/dL | EXTERNAL | | | | performed at [facility], [address] | | LAB | | | | [address], | | | | | | [place] [address] | | | | + + + + + + | A/G Ratio | 0.7 (L)Comment: Testing | 1.0 - 2.4 | EXTERNAL | | | | performed at [facility], [address] | | LAB | | | | [address], | | | | | | [place] [address] | | | | + + + + + + | Bilirubin | 0.5Comment: Testing | 0.1 - 1.5 mg/dL | EXTERNAL | | | Total | performed at [facility], [address] | | LAB | | | | [address], | | | | | | [place] [address] | | | | + + + + + + | ALP, | 104Comment: Testing | 35 - 115 U/L | EXTERNAL | | | External | performed at [facility], [address] | | LAB | | | | [address], | | | | | | [place] [address] | | | | + + + + + + | AST | 18Comment: Testing | 10 - 45 U/L | EXTERNAL | | | | performed at [facility], [address] | | LAB | | | | [address], | | | | | | [place] [address] | | | | + + + + + + | ALT | 12Comment: Testing | 10 - 65 U/L | EXTERNAL | | | | performed at [facility], [address] | | LAB | | | | [address], | | | | | | [place] [address] | | | | + + + + + + | Estimated | >60Comment: GFR <60: | mL/min/1.73m2 | EXTERNAL | | | GFR | CHRONIC KIDNEY DISEASE, | | LAB | | | | IF FOUND OVER A 3 MONTH | | | | | | PERIOD.GFR <15: KIDNEY | | | | | | FAILURE.FOR | | | | | | AMERICANS, MULTIPLY THE | | | | | | CALCULATED GFR BY | | | | | | 1.210.Testing performed | | | | | | at [facility], [address] | | | | | | [address], | | | | | | [place] [address] | | | | + + + + + + + + | Specimen | + + | Blood specimen | | (specimen) | + + + +---------+ + + | Performing | Address | City/State/Zipcode | Phone Number | | Organization | | | | + +---------+ + + | EXTERNAL LAB | | | | + +---------+ + + POC Glucose (02/27/2014 9:35 PM PST) + + + + + + | Component | Value | Ref Range | Performed | Pathologist | | | | | At | Signature | + + + + + + | Glucose, | 92Comment: Testing | 65 - 99 mg/dL | EXTERNAL | | | Fingerstick | performed at [facility];[address] | | LAB | | | | [address];[place], [place] | | | | | | [address] | | | | + + + + + + + + | Specimen | + + | | + + + +---------+ + + | Performing | Address | City/State/Zipcode | Phone Number | | Organization | | | | + +---------+ + + | EXTERNAL LAB | | | | + +---------+ + + HISTORICAL MICROBIOLOGY RESULT (02/27/2014 8:25 PM PST) + + | Specimen | + + | Stool specimen | | (specimen) | + + + + + | Narrative | Performed At | + + + | Toxigenic C Difficile NEGATIVE Testing | EXTERNAL LAB | | performed at [facility];[address] [facility];[place] [address] 027 NAP1 BI | | | 027 NAP1 BI PRESUMPTIVE NEGATIVE | | | Detection of 027 NAP1 BI strains of C. difficile is presumptive and | | | for epidemiological purposes and not intended to guide or monitor | | | treatment for C. difficile infections. Testing performed at [facility] | | | [facility];[place] [address] | | + + + + +---------+ + + | Performing | Address | City/State/Zipcode | Phone Number | | Organization | | | | + +---------+ + + | EXTERNAL LAB | | | | + +---------+ + + Potassium (02/27/2014 5:43 PM PST) + + + + + + | Component | Value | Ref Range | Performed | Pathologist | | | | | At | Signature | + + + + + + | K | 3.7Comment: Testing | 3.5 - 4.9 | EXTERNAL | | | | performed at [facility];[address] | mmol/L | LAB | | | | [address];[place] | | | | | | [address] | | | | + + + + + + + + | Specimen | + + | Blood specimen | | (specimen) | + + + +---------+ + + | Performing | Address | City/State/Zipcode | Phone Number | | Organization | | | | + +---------+ + + | EXTERNAL LAB | | | | + +---------+ + + Phosphorus (02/27/2014 5:43 PM PST) + + + + + + | Component | Value | Ref Range | Performed | Pathologist | | | | | At | Signature | + + + + + + | PHOSPHORUS | 2.6Comment: Testing | 2.3 - 4.8 mg/dL | EXTERNAL | | | | performed at [facility];[address] | | LAB | | | | [address];[place] | | | | | | [address] | | | | + + + + + + + + | Specimen | + + | Blood specimen | | (specimen) | + + + +---------+ + + | Performing | Address | City/State/Zipcode | Phone Number | | Organization | | | | + +---------+ + + | EXTERNAL LAB | | | | + +---------+ + + CT Abdomen Pelvis w Contrast (02/27/2014 4:47 PM PST) + + | Specimen | + + | | + + + + + | Impressions | Performed At | + + + | 1. Air tracking from the left. Medium superiorly in the | | | extraperitoneal spaces along the left flank. Rule out cells associated | | | with this dissecting air. A bulla are not depicted on this | | | examination. 2. Bilateral symmetric pleural effusions with | | | bibasilar atelectasis 3. Protrusion of bowel loops into the | | | pannus just above the pubic symphysis. This is broad-based and does | | | not represent a focal herniation. 4. The gallbladder is not | | | visualized. No surgical clips are seen. | | + + + + + + | Narrative | Performed At | + + + | ANA ROSA WRIGHT CT ABDOMEN PELVIS W CONTRAST 02/27/2014 4:47 PM | | | HISTORY: 58 years. Female. Vulvar abscess and pain TECHNIQUE: | | | 5-mm axial images were acquired through the abdomen and pelvis. | | | Oral Contrast: Readi-Cat IV contrast: 100 mL IsoVue 300 | | | COMPARISON: None. FINDINGS: Bilateral atelectasis and symmetric | | | pleural effusions present. No cardiac enlargement The distal | | | esophagus is normal. The liver is normal in size, position, | | | contour and attenuation. No solid or cystic masses are noted. No | | | intrahepatic biliary ductal enlargement is seen. The portal vein and | | | hepatic veins are normal. The spleen is normal in size and | | | attenuation. No solid or cystic masses are noted. The pancreas | | | is normal in size and attenuation. No solid or cystic masses are | | | noted. The gallbladder is not visualized The adrenal glands | | | are normal in size bilaterally. There is no evidence of an adrenal | | | adenoma or hyperplasia. The kidneys are symmetric in size | | | bilaterally and show no evidence of a solid or cystic mass. No | | | hydronephrosis is noted. No stones are seen in the collecting | | | systems. The aorta and vena cava are normal in caliber throughout | | | their visualized course including the iliac and femoral vessels. | | | No free fluid or free air is present. No adenopathy is seen in the | | | abdomen or pelvis. The stomach, duodenum, jejunum, ileum, | | | ileocecal valve are normal. No air-fluid levels are seen to suggest | | | obstruction. The appendix is identified and is normal. The | | | ascending colon, transverse colon, descending colon, sigmoid colon and | | | rectum demonstrate normal wall thickness. No diverticulosis is | | | noted. In the pelvis the bladder is fluid filled and has a normal | | | contour and wall thickness. No intraluminal filling defects are | | | seen. No diverticulum is noted. The muscles are symmetric. | | | No focal atrophy or soft tissue mass is seen. No hernias are | | | identified. In the left side of the pelvis, there is extensive air | | | dissection from the left perineum, commencing on the lowest image | | | obtained. The wall the are not detected on this examination. There is | | | air dissecting into the left flank, extending superiorly up to image | | | 251/5. There is no abscess formation along the course of this air. Is | | | possible that this air is dissected associated with a surgical | | | intervention. There is broad protrusion of bowel contents into the | | | pannus centrally. This extends down to a point at the pubic | | | symphysis. Vazquez catheter lies in the small bladder. The patient | | | has had a prior hysterectomy. The osseous structures do not | | | demonstrate lytic or blastic lesions. The SI joints and hip joints | | | are normal. | | + + + + + | Procedure Note | + + | Norm, Rad Conversion - 11/10/2018 5:47 PM PDT ANA ROSA GA ABDOMEN PELVIS W | | [id number]/3/2014 4:47 PM HISTORY:58 years. Female. Vulvar abscess and pain | | TECHNIQUE:5-mm axial images were acquired through the abdomen and pelvis.Oral Contrast: | | Readi-CatIV contrast: 100 mL IsoVue 300 COMPARISON:None. FINDINGS:Bilateral atelectasis | | and symmetric pleural effusions present. No cardiac enlargement The distal esophagus is | | normal. The liver is normal in size, position, contour and attenuation. No solid or | | cystic masses are noted. No intrahepatic biliary ductal enlargement is seen. The | | portal vein and hepatic veins are normal. The spleen is normal in size and attenuation. | | No solid or cystic masses are noted. The pancreas is normal in size and attenuation. | | No solid or cystic masses are noted. The gallbladder is not visualized The adrenal | | glands are normal in size bilaterally. There is no evidence of an adrenal adenoma or | | hyperplasia. The kidneys are symmetric in size bilaterally and show no evidence of a | | solid or cystic mass. No hydronephrosis is noted. No stones are seen in the collecting | | systems. The aorta and vena cava are normal in caliber throughout their visualized | | course including the iliac and femoral vessels. No free fluid or free air is present. No | | adenopathy is seen in the abdomen or pelvis. The stomach, duodenum, jejunum, ileum, | | ileocecal valve are normal. No air-fluid levels are seen to suggest obstruction. The | | appendix is identified and is normal. The ascending colon, transverse colon, descending | | colon, sigmoid colon and rectum demonstrate normal wall thickness. No diverticulosis | | is noted. In the pelvis the bladder is fluid filled and has a normal contour and wall | | thickness. No intraluminal filling defects are seen. No diverticulum is noted. The | | muscles are symmetric. No focal atrophy or soft tissue mass is seen. No hernias are | | identified.In the left side of the pelvis, there is extensive air dissection from the | | left perineum, commencing on the lowest image obtained. The wall the are not detected on | | this examination. There is air dissecting into the left flank, extending superiorly up | | to image 251/5. There is no abscess formation along the course of this air. Is possible | | that this air is dissected associated with a surgical intervention. There is broad | | protrusion of bowel contents into the pannus centrally. This extends down to a point at | | the pubic symphysis. Vazquez catheter lies in the small bladder. The patient has had a | | prior hysterectomy.The osseous structures do not demonstrate lytic or blastic lesions. | | The SI joints and hip joints are normal. IMPRESSION: 1. Air tracking from the left. | | Medium superiorly in the extraperitoneal spaces along the left flank. Rule out cells | | associated with this dissecting air. A bulla are not depicted on this examination. 2. | | Bilateral symmetric pleural effusions with bibasilar atelectasis 3. Protrusion of bowel | | loops into the pannus just above the pubic symphysis. This is broad-based and does not | | represent a focal herniation. 4. The gallbladder is not visualized. No surgical clips | | are seen. | | | |The stomach, duodenum, jejunum, ileum, ileocecal valve are normal. No air-fluid levels are seen to suggest obstruction. The appendix is identified and is normal. The ascending colo n, transverse colon, descending colon, sigmoid colon and rectum | |demonstrate normal wall thickness. No diverticulosis is noted. | | | |In the pelvis the bladder is fluid filled and has a normal contour and wall thickness. No intraluminal filling defects are seen. No diverticulum is noted. | | | | | | | |The muscles are symmetric. No focal atrophy or soft tissue mass is seen. No hernias are i dentified. | |In the left side of the pelvis, there is extensive air dissection from the left perineum, c ommencing on the lowest image obtained. The wall the are not detected on this examination. T here is air dissecting into the left | |flank, extending superiorly up to | |image 251/5. There is no abscess formation along the course of this air. Is possible that t his air is dissected associated with a surgical intervention. | | | |There is broad protrusion of bowel contents into the pannus centrally. This extends down to a point at the pubic symphysis. Vazquez catheter lies in the small bladder. | | | |The patient has had a prior hysterectomy. | |The osseous structures do not demonstrate lytic or blastic lesions. The SI joints and hip joints are normal. | | | |IMPRESSION: | |1. Air tracking from the left. Medium superiorly in the extraperitoneal spaces along the l eft flank. Rule out cells associated with this dissecting air. A bulla are not depicted on t his examination. | | | |2. Bilateral symmetric pleural effusions with bibasilar atelectasis | | | |3. Protrusion of bowel loops into the pannus just above the pubic symphysis. This is broad -based and does not represent a focal herniation. | | | |4. The gallbladder is not visualized. No surgical clips are seen. | | | | | + + POC Glucose (02/27/2014 4:19 PM PST) + + + + + + | Component | Value | Ref Range | Performed | Pathologist | | | | | At | Signature | + + + + + + | Glucose, | 88Comment: Testing | 65 - 99 mg/dL | EXTERNAL | | | Fingerstick | performed at [facility];[address] | | LAB | | | | [address];[place] | | | | | | [address] | | | | + + + + + + + + | Specimen | + + | | + + + +---------+ + + | Performing | Address | City/State/Zipcode | Phone Number | | Organization | | | | + +---------+ + + | EXTERNAL LAB | | | | + +---------+ + + POC Glucose (02/27/2014 12:09 PM PST) + + + + + + | Component | Value | Ref Range | Performed | Pathologist | | | | | At | Signature | + + + + + + | Glucose, | 93Comment: Testing | 65 - 99 mg/dL | EXTERNAL | | | Fingerstick | performed at [facility];[address] | | LAB | | | | [address];[place], [place] | | | | | | [address] | | | | + + + + + + + + | Specimen | + + | | + + + +---------+ + + | Performing | Address | City/State/Zipcode | Phone Number | | Organization | | | | + +---------+ + + | EXTERNAL LAB | | | | + +---------+ + + External Lab: CBC (02/27/2014 6:25 AM PST) + + + + + + | Component | Value | Ref Range | Performed | Pathologist | | | | | At | Signature | + + + + + + | WBC | 17.8 (H)Comment: Testing | 3.8 - 11.0 K/uL | EXTERNAL | | | | performed at [facility];[address] | | LAB | | | | [address];[place] | | | | | | [address] | | | | + + + + + + | Non- | 3.40 (L)Comment: Testing | 3.70 - 5.10 | EXTERNAL | | | Red Blood | performed at [facility];[address] | M/uL | LAB | | | Cells | [address];[place] | | | | | Counted | [id number] | | | | + + + + + + | Hemoglobin | 8.9 (L)Comment: Testing | 11.3 - 15.5 | EXTERNAL | | | | performed at [facility];[address] | g/dL | LAB | | | | [address];[place] | | | | | | [address] | | | | + + + + + + | Hematocrit, | 27.8 (L)Comment: Testing | 34.0 - 46.0 % | EXTERNAL | | | POC | performed at [facility];[address] | | LAB | | | | [address];[place] | | | | | | [address] | | | | + + + + + + | MCV | 82.0Comment: Testing | 80.0 - 100.0 fl | EXTERNAL | | | | performed at [facility];[address] | | LAB | | | | [address];[place] | | | | | | [address] | | | | + + + + + + | MCH | 26.2 (L)Comment: Testing | 27.0 - 34.0 pg | EXTERNAL | | | | performed at [facility];[address] | | LAB | | | | [address];[place] | | | | | | [address] | | | | + + + + + + | MCHC | 31.9 (L)Comment: Testing | 32.0 - 35.5 | EXTERNAL | | | | performed at [facility];[address] | g/dL | LAB | | | | [address];[place] | | | | | | [address] | | | | + + + + + + | RDW-CV | 47.3Comment: Testing | 37 - 53 fl | EXTERNAL | | | | performed at [facility];[address] | | LAB | | | | [address];[place] | | | | | | [address] | | | | + + + + + + | Platelet | 296Comment: Testing | 150 - 400 K/uL | EXTERNAL | | | Count | performed at [facility];[address] | | LAB | | | Plasma | [address];[place] | | | | | | [address] | | | | + + + + + + | MPV | 7.7Comment: Testing | fl | EXTERNAL | | | | performed at [facility];[address] | | LAB | | | | [address];[place] | | | | | | [address] | | | | + + + + + + | Differentia | MANUALComment: Testing | | EXTERNAL | | | l Type | performed at [facility];[address] | | LAB | | | | [address];[place] | | | | | | [address] | | | | + + + + + + | Segmented | 60Comment: Testing | % | EXTERNAL | | | Neutrophils | performed at [facility];[address] | | LAB | | | Manual | [address];[place] | | | | | | [address] | | | | + + + + + + | % Bands | 26Comment: Testing | % | EXTERNAL | | | | performed at [facility];[address] | | LAB | | | | [address];[place] | | | | | | [address] | | | | + + + + + + | Lymphocytes | 9Comment: Testing | % | EXTERNAL | | | Manual | performed at [facility];[address] | | LAB | | | | [address];[place] | | | | | | [address] | | | | + + + + + + | % Atypical | 1Comment: Testing | % | EXTERNAL | | | Lymphocytes | performed at [facility];[address] | | LAB | | | | [address];[place] | | | | | | [address] | | | | + + + + + + | Monocytes | 4Comment: Testing | % | EXTERNAL | | | Manual | performed at [facility];[address] | | LAB | | | | [address];[place] | | | | | | [address] | | | | + + + + + + | Absolute | 10.7 (H)Comment: Testing | 1.9 - 7.4 K/uL | EXTERNAL | | | Neutrophils | performed at [facility];[address] | | LAB | | | | [address];[place] | | | | | | [address] | | | | + + + + + + | Bands | 4.6 (H)Comment: Testing | 0 - 0.2 K/uL | EXTERNAL | | | Manual | performed at [facility];[address] | | LAB | | | | [address];[place] | | | | | | [address] | | | | + + + + + + | Absolute | 1.6Comment: Testing | 1.0 - 3.9 K/uL | EXTERNAL | | | Lymphocytes | performed at [facility];[address] | | LAB | | | | [address];[place] | | | | | | [address] | | | | + + + + + + | Absolute | 0.2 (H)Comment: Testing | K/uL | EXTERNAL | | | Atypical | performed at [facility];[address] | | LAB | | | Lymphocytes | [address];[place] | | | | | | [address] | | | | + + + + + + | Absolute | 0.7Comment: Testing | 0 - 0.8 K/uL | EXTERNAL | | | Monocytes | performed at [facility];[address] | | LAB | | | | [address];[place] | | | | | | [address] | | | | + + + + + + | Platelet | ADEQUATEComment: Testing | | EXTERNAL | | | Estimate | performed at [facility];[address] | | LAB | | | | [address];[place] | | | | | | [address] | | | | + + + + + + | RBC | NORMALComment: Testing | | EXTERNAL | | | Morphology | performed at [facility];[address] | | LAB | | | | [address];[place] | | | | | | [address] | | | | + + + + + + + + | Specimen | + + | Blood specimen | | (specimen) | + + + +---------+ + + | Performing | Address | City/State/Zipcode | Phone Number | | Organization | | | | + +---------+ + + | EXTERNAL LAB | | | | + +---------+ + + C-Reactive Protein (02/27/2014 6:25 AM PST) + + + + + + | Component | Value | Ref Range | Performed | Pathologist | | | | | At | Signature | + + + + + + | CRP | 29.0 (H)Comment: Testing | mg/dL | EXTERNAL | | | | performed at [facility];[address] | | LAB | | | | [address];[place], [place] | | | | | | [address] | | | | + + + + + + + + | Specimen | + + | Blood specimen | | (specimen) | + + + +---------+ + + | Performing | Address | City/State/Zipcode | Phone Number | | Organization | | | | + +---------+ + + | EXTERNAL LAB | | | | + +---------+ + + Phosphorus (02/27/2014 6:25 AM PST) + + + + + + | Component | Value | Ref Range | Performed | Pathologist | | | | | At | Signature | + + + + + + | PHOSPHORUS | 1.6 (L)Comment: Testing | 2.3 - 4.8 mg/dL | EXTERNAL | | | | performed at [facility];[address] | | LAB | | | | [address];[place] | | | | | | [address] | | | | + + + + + + + + | Specimen | + + | Blood specimen | | (specimen) | + + + +---------+ + + | Performing | Address | City/State/Zipcode | Phone Number | | Organization | | | | + +---------+ + + | EXTERNAL LAB | | | | + +---------+ + + Magnesium (02/27/2014 6:25 AM PST) + + + + + + | Component | Value | Ref Range | Performed | Pathologist | | | | | At | Signature | + + + + + + | Magnesium | 2.2Comment: Testing | 1.7 - 2.4 mg/dL | EXTERNAL | | | | performed at [facility];[address] | | LAB | | | | [address];[place] | | | | | | [address] | | | | + + + + + + + + | Specimen | + + | Blood specimen | | (specimen) | + + + +---------+ + + | Performing | Address | City/State/Zipcode | Phone Number | | Organization | | | | + +---------+ + + | EXTERNAL LAB | | | | + +---------+ + + Hemoglobin A1C (02/27/2014 6:25 AM PST) + + + + + + | Component | Value | Ref Range | Performed | Pathologist | | | | | At | Signature | + + + + + + | Hemoglobin | 7.8 (H)Comment: The | 4.0 - 6.0 % | EXTERNAL | | | A1c | [place] [employer] | | LAB | | | | Association considers a | | | | | | hemoglobin A1c result of | | | | | | <7.0% to be the goal of | | | | | | diabetic therapy. | | | | | | When results are | | | | | | consistently >8.0%, the | | | | | | ADA suggests | | | | | | reevaluation of the | | | | | | treatment regimen. The | | | | | | testing method used is | | | | | | certified traceable to | | | | | | the Diabetes Control and | | | | | | Complications Trial | | | | | | reference method.Testing | | | | | | performed at [facility], [address] | | | | | [address] [facility], | | | | | | [place] [address] | | | | + + + + + + | Glycohemogl | 177Comment: The ADA | mg/dL | EXTERNAL | | | obin | considers an eAG result | | LAB | | | (GHb),Total | of LT 154 mg/dL to be | | | | | | the goal of diabetic | | | | | | therapy. Estimated | | | | | | Average Glucose | | | | | | calculated from | | | | | | hemoglobin A1c by use of | | | | | | the ADA recommended | | | | | | formula.Testing | | | | | | performed at [facility], [address] | | | | | [facility], | | | | | | [place] [address] | | | | + + + [...] + +---------+ + + Comprehensive Metabolic Panel (02/27/2014 6:25 AM PST) + + + + + + | Component | Value | Ref Range | Performed | Pathologist | | | | | At | Signature | + + + + + + | Na | 140Comment: Testing | 135 - 143 | EXTERNAL | | | | performed at [facility];[address] | mmol/L | LAB | | | | [address];[place] | | | | | | [address] | | | | + + + + + + | K | 3.3 (L)Comment: Testing | 3.5 - 4.9 | EXTERNAL | | | | performed at [facility];[address] | mmol/L | LAB | | | | [address];[place] | | | | | | [address] | | | | + + + + + + | Cl | 111 (H)Comment: Testing | 99 - 109 mmol/L | EXTERNAL | | | | performed at [facility];[address] | | LAB | | | | [address];[place] | | | | | | [address] | | | | + + + + + + | CO2 | 21 (L)Comment: Testing | 23 - 32 mmol/L | EXTERNAL | | | | performed at [facility];[address] | | LAB | | | | [address];[place] | | | | | | [address] | | | | + + + + + + | Anion Gap | 12Comment: Testing | 5 - 20 mmol/L | EXTERNAL | | | | performed at [facility];[address] | | LAB | | | | [address];[place] | | | | | | [address] | | | | + + + + + + | Glucose, | 139 (H)Comment: Testing | 65 - 99 mg/dL | EXTERNAL | | | Fasting | performed at [facility];[address] | | LAB | | | | [address];[place] | | | | | | [address] | | | | + + + + + + | BUN | 20Comment: Testing | 8 - 25 mg/dL | EXTERNAL | | | | performed at [facility];[address] | | LAB | | | | [address];[place] | | | | | | [address] | | | | + + + + + + | Creatinine | 0.82Comment: Testing | 0.50 - 1.00 | EXTERNAL | | | | performed at [facility];888 | mg/dL | LAB | | | | [address];[place] | | | | | | [address] | | | | + + + + + + | BUN/Creatin | 25Comment: Testing | | EXTERNAL | | | ine Ratio | performed at [facility];[address] | | LAB | | | | [address];[place] | | | | | | [address] | | | | + + + + + + | Calcium | 7.5 (L)Comment: Testing | 8.5 - 10.2 | EXTERNAL | | | | performed at [facility];888 | mg/dL | LAB | | | | [address];[place] | | | | | | [address] | | | | + + + + + + | Protein, | 5.6 (L)Comment: Testing | 6.3 - 8.2 g/dL | EXTERNAL | | | Total | performed at [facility];[address] | | LAB | | | | [address];[place] | | | | | | [address] | | | | + + + + + + | Albumin | 1.7 (L)Comment: Testing | 3.6 - 5.0 g/dL | EXTERNAL | | | | performed at [facility];[address] | | LAB | | | | [address];[place] | | | | | | [address] | | | | + + + + + + | Globulin | 3.9Comment: Testing | 1.3 - 4.9 g/dL | EXTERNAL | | | | performed at [facility];[address] | | LAB | | | | [address];[place] | | | | | | [address] | | | | + + + + + + | A/G Ratio | 0.4 (L)Comment: Testing | 1.0 - 2.4 | EXTERNAL | | | | performed at [facility];[address] | | LAB | | | | [address];[place] | | | | | | [address] | | | | + + + + + + | Bilirubin | 0.6Comment: Testing | 0.1 - 1.5 mg/dL | EXTERNAL | | | Total | performed at [facility];[address] | | LAB | | | | [address];[place] | | | | | | [address] | | | | + + + + + + | ALP, | 118 (H)Comment: Testing | 35 - 115 U/L | EXTERNAL | | | External | performed at [facility];[address] | | LAB | | | | [address];[place] | | | | | | [address] | | | | + + + + + + | AST | 25Comment: Testing | 10 - 45 U/L | EXTERNAL | | | | performed at [facility];[address] | | LAB | | | | [address];[place] | | | | | | [address] | | | | + + + + + + | ALT | 11Comment: Testing | 10 - 65 U/L | EXTERNAL | | | | performed at [facility];[address] | | LAB | | | | [address];[place] | | | | | | [address] | | | | + + + + + + | Estimated | >60Comment: GFR <60: | mL/min/1.73m2 | EXTERNAL | | | GFR | CHRONIC KIDNEY DISEASE, | | LAB | | | | IF FOUND OVER A 3 MONTH | | | | | | PERIOD.GFR <15: KIDNEY | | | | | | FAILURE.FOR | | | | | | AMERICANS, MULTIPLY THE | | | | | | CALCULATED GFR BY | | | | | | 1.210.Testing performed | | | | | | at [facility];[address];[place] [address] | | | | + + + + + + + + | Specimen | + + | Blood specimen | | (specimen) | + + + +---------+ + + | Performing | Address | City/State/Zipcode | Phone Number | | Organization | | | | + +---------+ + + | EXTERNAL LAB | | | | + +---------+ + + POC Glucose (02/27/2014 5:50 AM PST) + + + + + + | Component | Value | Ref Range | Performed | Pathologist | | | | | At | Signature | + + + + + + | Glucose, | 139 (H)Comment: Testing | 65 - 99 mg/dL | EXTERNAL | | | Fingerstick | performed at [facility];[address] | | LAB | | | | [address];[place], [place] | | | | | | [address] | | | | + + + + + + + + | Specimen | + + | | + + + +---------+ + + | Performing | Address | City/State/Zipcode | Phone Number | | Organization | | | | + +---------+ + + | EXTERNAL LAB | | | | + +---------+ + + POC Glucose (02/26/2014 9:56 PM PST) + + + + + + | Component | Value | Ref Range | Performed | Pathologist | | | | | At | Signature | + + + + + + | Glucose, | 169 (H)Comment: Testing | 65 - 99 mg/dL | EXTERNAL | | | Fingerstick | performed at [facility];[address] | | LAB | | | [address];[place], [place] | | | | | | [address] | | | | + + + + + + + + | Specimen | + + | | + + + +---------+ + + | Performing | Address | City/State/Zipcode | Phone Number | | Organization | | | | + +---------+ + + | EXTERNAL LAB | | | | + +---------+ + + POC Glucose (02/26/2014 4:51 PM PST) + + + + + + | Component | Value | Ref Range | Performed | Pathologist | | | | | At | Signature | + + + + + + | Glucose, | 130 (H)Comment: Testing | 65 - 99 mg/dL | EXTERNAL | | | Fingerstick | performed at [facility];[address] | | LAB | | | | [address];[place] | | | | | | [address] | | | | + + + + + + + + | Specimen | + + | | + + + +---------+ + + | Performing | Address | City/State/Zipcode | Phone Number | | Organization | | | | + +---------+ + + | EXTERNAL LAB | | | | + +---------+ + + POC Glucose (02/26/2014 4:42 PM PST) + + + + + + | Component | Value | Ref Range | Performed | Pathologist | | | | | At | Signature | + + + + + + | Glucose, | 125 (H)Comment: Testing | 65 - 99 mg/dL | EXTERNAL | | | Fingerstick | performed at [facility];[address] | | LAB | | | | [address];[place] | | | | | | [address] | | | | + + + + + + + + | Specimen | + + | | + + + +---------+ + + | Performing | Address | City/State/Zipcode | Phone Number | | Organization | | | | + +---------+ + + | EXTERNAL LAB | | | | + +---------+ + + Potassium (02/26/2014 4:12 PM PST) + + + + + + | Component | Value | Ref Range | Performed | Pathologist | | | | | At | Signature | + + + + + + | K | 3.3 (L)Comment: Testing | 3.5 - 4.9 | EXTERNAL | | | | performed at [facility], [address] | mmol/L | LAB | | | | [address], | | | | | | [place] [address] | | | | + + + + + + + + | Specimen | + + | Blood specimen | | (specimen) | + + + +---------+ + + | Performing | Address | City/State/Zipcode | Phone Number | | Organization | | | | + +---------+ + + | EXTERNAL LAB | | | | + +---------+ + + POC Glucose (02/26/2014 12:10 PM PST) + + + + + + | Component | Value | Ref Range | Performed | Pathologist | | | | | At | Signature | + + + + + + | Glucose, | 142 (H)Comment: Testing | 65 - 99 mg/dL | EXTERNAL | | | Fingerstick | performed at [facility];[address] | | LAB | | | | [address];[place], [place] | | | | | | [address] | | | | + + + + + + + + | Specimen | + + | | + + + +---------+ + + | Performing | Address | City/State/Zipcode | Phone Number | | Organization | | | | + +---------+ + + | EXTERNAL LAB | | | | + +---------+ + + Phosphorus (02/26/2014 6:30 AM PST) + + + + + + | Component | Value | Ref Range | Performed | Pathologist | | | | | At | Signature | + + + + + + | PHOSPHORUS | 3.0Comment: Testing | 2.3 - 4.8 mg/dL | EXTERNAL | | | | performed at [facility], [address] | | LAB | | | | [address], | | | | | | [place] [address] | | | | + + + + + + + + | Specimen | + + | Blood specimen | | (specimen) | + + + +---------+ + + | Performing | Address | City/State/Zipcode | Phone Number | | Organization | | | | + +---------+ + + | EXTERNAL LAB | | | | + +---------+ + + Magnesium (02/26/2014 6:30 AM PST) + + + + + + | Component | Value | Ref Range | Performed | Pathologist | | | | | At | Signature | + + + + + + | Magnesium | 2.0Comment: Testing | 1.7 - 2.4 mg/dL | EXTERNAL | | | | performed at [facility], [address] | | LAB | | | | [address], | | | | | | [place] [address] | | | | + + + + + + + + | Specimen | + + | Blood specimen | | (specimen) | + + + +---------+ + + | Performing | Address | City/State/Zipcode | Phone Number | | Organization | | | | + +---------+ + + | EXTERNAL LAB | | | | + +---------+ + + Basic Metabolic Panel (02/26/2014 6:30 AM PST) + + + + + + | Component | Value | Ref Range | Performed | Pathologist | | | | | At | Signature | + + + + + + | Na | 138Comment: Testing | 135 - 143 | EXTERNAL | | | | performed at [facility], [address] | mmol/L | LAB | | | | [address], | | | | | | [place] [address] | | | | + + + + + + | K | 3.1 (L)Comment: Testing | 3.5 - 4.9 | EXTERNAL | | | | performed at [facility], [address] | mmol/L | LAB | | | | [address], | | | | | | [place] [address] | | | | + + + + + + | Cl | 109Comment: Testing | 99 - 109 mmol/L | EXTERNAL | | | | performed at [facility], [address] | | LAB | | | | [address], | | | | | | [place] [address] | | | | + + + + + + | CO2 | 21 (L)Comment: Testing | 23 - 32 mmol/L | EXTERNAL | | | | performed at [facility], [address] | | LAB | | | | [address], | | | | | | [place] [address] | | | | + + + + + + | Anion Gap | 11Comment: Testing | 5 - 20 mmol/L | EXTERNAL | | | | performed at [facility], [address] | | LAB | | | | [address], | | | | | | [place] [address] | | | | + + + + + + | Glucose, | 91Comment: Testing | 65 - 99 mg/dL | EXTERNAL | | | Fasting | performed at [facility], [address] | | LAB | | | | [address], | | | | | | [place] [address] | | | | + + + + + + | BUN | 33 (H)Comment: Testing | 8 - 25 mg/dL | EXTERNAL | | | | performed at [facility], [address] | | LAB | | | | [address], | | | | | | [place] [address] | | | | + + + + + + | Creatinine | 1.11 (H)Comment: Testing | 0.50 - 1.00 | EXTERNAL | | | | performed at [facility], [address] | mg/dL | LAB | | | | [address], | | | | | | [place] [address] | | | | + + + + + + | BUN/Creatin | 30Comment: Testing | | EXTERNAL | | | ine Ratio | performed at [facility], [address] | | LAB | | | | [address], | | | | | | [place] [address] | | | | + + + + + + | Calcium | 7.0 (L)Comment: Testing | 8.5 - 10.2 | EXTERNAL | | | | performed at [facility], [address] | mg/dL | LAB | | | | [address], | | | | | | [place] [address] | | | | + + + + + + | Estimated | 54 (L)Comment: GFR <60: | mL/min/1.73m2 | EXTERNAL | | | GFR | CHRONIC KIDNEY DISEASE, | | LAB | | | | IF FOUND OVER A 3 MONTH | | | | | | PERIOD.GFR <15: KIDNEY | | | | | | FAILURE.FOR | | | | | | AMERICANS, MULTIPLY THE | | | | | | CALCULATED GFR BY | | | | | | 1.210.Testing performed | | | | | | at [facility], [address] | | | | | | [address], | | | | | | [place] [address] | | | | + + + + + + + + | Specimen | + + | Blood specimen | | (specimen) | + + + +---------+ + + | Performing | Address | City/State/Zipcode | Phone Number | | Organization | | | | + +---------+ + + | EXTERNAL LAB | | | | + +---------+ + + CBC with Manual Differential (02/26/2014 6:21 AM PST) + + + + + + | Component | Value | Ref Range | Performed | Pathologist | | | | | At | Signature | + + + + + + | WBC | 23.0 (H)Comment: Testing | 3.8 - 11.0 K/uL | EXTERNAL | | | | performed at [facility], [address] | | LAB | | | | [address], | | | | | | [place] [address] | | | | + + + + + + | Non- | 3.47 (L)Comment: Testing | 3.70 - 5.10 | EXTERNAL | | | Red Blood | performed at [facility], [address] | M/uL | LAB | | | Cells | [address], | | | | | Counted | [place] [address] | | | | + + + + + + | Hemoglobin | 9.0 (L)Comment: Testing | 11.3 - 15.5 | EXTERNAL | | | | performed at [facility], [address] | g/dL | LAB | | | | [address], | | | | | | [place] [address] | | | | + + + + + + | Hematocrit, | 29.1 (L)Comment: Testing | 34.0 - 46.0 % | EXTERNAL | | | POC | performed at [facility], [address] | | LAB | | | | [address], | | | | | | [place] [address] | | | | + + + + + + | MCV | 83.7Comment: Testing | 80.0 - 100.0 fl | EXTERNAL | | | | performed at [facility], [address] | | LAB | | | | [address], | | | | | | [place] [address] | | | | + + + + + + | MCH | 26.0 (L)Comment: Testing | 27.0 - 34.0 pg | EXTERNAL | | | | performed at [facility], [address] | | LAB | | | | [address], | | | | | | [place] [address] | | | | + + + + + + | MCHC | 31.1 (L)Comment: Testing | 32.0 - 35.5 | EXTERNAL | | | | performed at [facility], [address] | g/dL | LAB | | | | [address], | | | | | | [place] [address] | | | | + + + + + + | RDW-CV | 46.8Comment: Testing | 37 - 53 fl | EXTERNAL | | | | performed at [facility], [address] | | LAB | | | | [address], | | | | | | [place] [address] | | | | + + + + + + | Platelet | 279Comment: Testing | 150 - 400 K/uL | EXTERNAL | | | Count | performed at [facility], [address] | | LAB | | | Plasma | [address], | | | | | | [place] [address] | | | | + + + + + + | MPV | 7.9Comment: Testing | fl | EXTERNAL | | | | performed at [facility], [address] | | LAB | | | | [address], | | | | | | [place] [address] | | | | + + + + + + | Differentia | MANUALComment: Testing | | EXTERNAL | | | l Type | performed at [facility], [address] | | LAB | | | | [address], | | | | | | [place] [address] | | | | + + + + + + | Segmented | 73Comment: Testing | % | EXTERNAL | | | Neutrophils | performed at [facility], [address] | | LAB | | | Manual | [address], | | | | | | [place] [address] | | | | + + + + + + | % Bands | 13Comment: Testing | % | EXTERNAL | | | | performed at [facility], [address] | | LAB | | | | [address], | | | | | | [place] [address] | | | | + + + + + + | % | 1Comment: Testing | % | EXTERNAL | | | Metamyelocy | performed at [facility], [address] | | LAB | | | [address] | [address], | | | | | | [place] [address] | | | | + + + + + + | Lymphocytes | 7Comment: Testing | % | EXTERNAL | | | Manual | performed at [facility], [address] | | LAB | | | | [address], | | | | | | [place] [address] | | | | + + + + + + | Monocytes | 6Comment: Testing | % | EXTERNAL | | | Manual | performed at [facility], [address] | | LAB | | | | [address], | | | | | | [place] [address] | | | | + + + + + + | Absolute | 16.8 (H)Comment: Testing | 1.9 - 7.4 K/uL | EXTERNAL | | | Neutrophils | performed at [facility], [address] | | LAB | | | | [address], | | | | | | [place] [address] | | | | + + + + + + | Bands | 3.0 (H)Comment: Testing | 0 - 0.2 K/uL | EXTERNAL | | | Manual | performed at [facility], [address] | | LAB | | | [address], | | | | | | [place] [address] | | | | + + + + + + | Absolute | 0.2 (H)Comment: Testing | K/uL | EXTERNAL | | | Metamyelocy | performed at [facility], [address] | | LAB | | | [address] | [address], | | | | | | [place] [address] | | | | + + + + + + | Absolute | 1.6Comment: Testing | 1.0 - 3.9 K/uL | EXTERNAL | | | Lymphocytes | performed at [facility], [address] | | LAB | | | | [address], | | | | | | [place] [address] | | | | + + + + + + | Absolute | 1.4 (H)Comment: Testing | 0 - 0.8 K/uL | EXTERNAL | | | Monocytes | performed at [facility], [address] | | LAB | | | | [address], | | | | | | [place] [address] | | | | + + + + + + | RBC | RBC AND PLT MORPHOLOGY | | EXTERNAL | | | Morphology | APPEAR NORMALComment: | | LAB | | | | Testing performed at | | | | | | [facility], [address] | | | | | | [place] | | | | | | [address] | | | | + + + + + + + + | Specimen | + + | Blood specimen | | (specimen) | + + + +---------+ + + | Performing | Address | City/State/Zipcode | Phone Number | | Organization | | | | + +---------+ + + | EXTERNAL LAB | | | | + +---------+ + + POC Glucose (02/26/2014 6:08 AM PST) + + + + + + | Component | Value | Ref Range | Performed | Pathologist | | | | | At | Signature | + + + + + + | Glucose, | 94Comment: Testing | 65 - 99 mg/dL | EXTERNAL | | | Fingerstick | performed at [facility];[address] | | LAB | | | [address];[place], [place] | | | | | | [address] | | | | + + + + + + + + | Specimen | + + | | + + + +---------+ + + | Performing | Address | City/State/Zipcode | Phone Number | | Organization | | | | + +---------+ + + | EXTERNAL LAB | | | | + +---------+ + + ECG 12 lead (02/26/2014 5:22 AM PST) + + + + + + | Component | Value | Ref Range | Performed | Pathologist | | | | | At | Signature | + + + + + + | DIAGNOSIS: | Sinus | | EXTERNAL | | | | tachycardiaOtherwise | | LAB | | | | normal ECGNo previous | | | | | | ECGs availableConfirmed | | | | | | by DUTCH DOHERTY ([id number]) on | | | | | | 02/26/2014 11:02:56 PM | | | | + + + + + + + + | Specimen | + + | | + + + + + | Narrative | Performed At | + + + | [facility] | EXTERNAL LAB | + + + + +---------+ + + | Performing | Address | City/State/Zipcode | Phone Number | | Organization | | | | + +---------+ + + | EXTERNAL LAB | | | | + +---------+ + + HISTORICAL MICROBIOLOGY RESULT (02/26/2014 3:36 AM PST) + + | Specimen | + + | Stool specimen | | (specimen) | + + + + + | Narrative | Performed At | + + + | Toxigenic C Difficile NEGATIVE Testing | EXTERNAL LAB | | performed at [facility];[address] [facility];[place] [address] 027 NAP1 BI | | | 027 NAP1 BI PRESUMPTIVE NEGATIVE | | | Detection of 027 NAP1 BI strains of C. difficile is presumptive and | | | for epidemiological purposes and not intended to guide or monitor | | | treatment for C. difficile infections. Testing performed at [facility];[address] | | | [facility];[place] [address] | | + + + + +---------+ + + | Performing | Address | City/State/Zipcode | Phone Number | | Organization | | | | + +---------+ + + | EXTERNAL LAB | | | | + +---------+ + + Potassium (02/26/2014 12:10 AM PST) + + + + + + | Component | Value | Ref Range | Performed | Pathologist | | | | | At | Signature | + + + + + + | K | 3.6Comment: Testing | 3.5 - 4.9 | EXTERNAL | | | | performed at [facility], [address] | mmol/L | LAB | | | | [address], | | | | | | [place] [address] | | | | + + + + + + + + | Specimen | + + | Blood specimen | | (specimen) | + + + +---------+ + + | Performing | Address | City/State/Zipcode | Phone Number | | Organization | | | | + +---------+ + + | EXTERNAL LAB | | | | + +---------+ + + POC Glucose (02/25/2014 9:45 PM PST) + + + + + + | Component | Value | Ref Range | Performed | Pathologist | | | | | At | Signature | + + + + + + | Glucose, | 102 (H)Comment: Testing | 65 - 99 mg/dL | EXTERNAL | | | Fingerstick | performed at [facility];[address] | | LAB | | | | [address];[place] | | | | | | [address] | | | | + + + + + + + + | Specimen | + + | | + + + +---------+ + + | Performing | Address | City/State/Zipcode | Phone Number | | Organization | | | | + +---------+ + + | EXTERNAL LAB | | | | + +---------+ + + POC Glucose (02/25/2014 9:11 PM PST) + + + + + + | Component | Value | Ref Range | Performed | Pathologist | | | | | At | Signature | + + + + + + | Glucose, | 76Comment: Testing | 65 - 99 mg/dL | EXTERNAL | | | Fingerstick | performed at [facility];[address] | | LAB | | | | [address];[place], [place] | | | | | | [address] | | | | + + + + + + + + | Specimen | + + | | + + + +---------+ + + | Performing | Address | City/State/Zipcode | Phone Number | | Organization | | | | + +---------+ + + | EXTERNAL LAB | | | | + +---------+ + + Culture, Anaerobic (02/25/2014 8:41 PM PST) + + | Specimen | + + | | + + + + + | Narrative | Performed At | + + + | Specimen Description VULVA GRAM STAIN | EXTERNAL LAB | | 3+ | | | GRAM POSITIVE RODS | | | 2+ | | | GRAM POSITIVE COCCI | | | 2+ | | | WBC'S SEEN | | | REVIEW OF SMEAR BY MICROBIOLOGY SHOWS | | | THE FOLLOWIN+ | | | GRAM | | | POSITIVE COCCI | | | 4+ | | | GRAM POSITIVE RODS | | | 3+ | | | GRAM NEGATIVE RODS | | | 2+ | | | WBC'S SEEN CULTURE 2+ | | | NORMAL | | | GENITAL ODETTE 1+ | | | MIXED | | | ANAEROBIC ODETTE | | | Testing performed at [facility], [address] [place] [place], [place] | | | [address] | | + + + + +---------+ + + | Performing | Address | City/State/Zipcode | Phone Number | | Organization | | | | + +---------+ + + | EXTERNAL LAB | | | | + +---------+ + + Culture, Blood, 2nd Specimen (02/25/2014 7:57 PM PST) + + | Specimen | + + | Blood specimen | | (specimen) | + + + + + | Narrative | Performed At | + + + | Specimen Description BLOOD, PERIPHERAL DRAW | EXTERNAL LAB | | SPECIAL REQUESTS R HAND | | | Testing performed at [facility];[address] | | [facility];[place] [address] CULTURE | | | NO GROWTH | | | Testing performed at [facility], [address] [facility], [place], [place] | | | [address] | | + + + + +---------+ + + | Performing | Address | City/State/Zipcode | Phone Number | | Organization | | | | + +---------+ + + | EXTERNAL LAB | | | | + +---------+ + + Culture, Blood (02/25/2014 7:54 PM PST) + + | Specimen | + + | Blood specimen | | (specimen) | + + + + + | Narrative | Performed At | + + + | Specimen Description BLOOD, PERIPHERAL DRAW | EXTERNAL LAB | | SPECIAL REQUESTS L HAND | | | Testing performed at [facility];[address] | | [facility];[place] [address] CULTURE | | | NO GROWTH | | | Testing performed at [facility], [address] [facility], [place], [place] | | | [address] | | + + + + +---------+ + + | Performing | Address | City/State/Zipcode | Phone Number | | Organization | | | | + +---------+ + + | EXTERNAL LAB | | | | + +---------+ + + POC Glucose (02/25/2014 7:05 PM PST) + + + + + + | Component | Value | Ref Range | Performed | Pathologist | | | | | At | Signature | + + + + + + | Glucose, | 96Comment: Testing | 65 - 99 mg/dL | EXTERNAL | | | Fingerstick | performed at [facility];[address] | | LAB | | | | [address];[place] | | | | | | [address] | | | | + + + + + + + + | Specimen | + + | | + + + +---------+ + + | Performing | Address | City/State/Zipcode | Phone Number | | Organization | | | | + +---------+ + + | EXTERNAL LAB | | | | + +---------+ + + Type and Screen (02/25/2014 6:59 PM PST) + + + + + + | Component | Value | Ref Range | Performed | Pathologist | | | | | At | Signature | + + + + + + | ABO Rh | O POSITIVE | | EXTERNAL | | | | | | LAB | | + + + + + + | ABO Rh | Testing performed at | | EXTERNAL | | | | [facility];[address] | | LAB | | | | [address];[place] [address] | | | | + + + + + + | Antibody | NEGATIVE | | EXTERNAL | | | Screen | | | LAB | | + + + + + + | Antibody | Testing performed at | | EXTERNAL | | | Screen | [facility];[address] | | LAB | | | | [address];[place] [address] | | | | + + + + + + | BB BAND | [id number] | | EXTERNAL | | | | | | LAB | | + + + + + + | BB BAND | Testing performed at | | EXTERNAL | | | | [facility];[address] | | LAB | | | | [address];[place] [address] | | | | + + + + + + + + | Specimen | + + | Blood specimen | | (specimen) | + + + +---------+ + + | Performing | Address | City/State/Zipcode | Phone Number | | Organization | | | | + +---------+ + + | EXTERNAL LAB | | | | + +---------+ + + Sedimentation rate, automated (02/25/2014 6:40 PM PST) + + + + + + | Component | Value | Ref Range | Performed | Pathologist | | | | | At | Signature | + + + + + + | Sed Rate | 98 (H)Comment: Testing | 0 - 30 mm/Hr | EXTERNAL | | | | performed at [facility], [address] | | LAB | | | | [address], | | | | | | [place] [address] | | | | + + + [...] + +---------+ + + External Lab: CBC (02/25/2014 6:40 PM PST) + + + + + + | Component | Value | Ref Range | Performed | Pathologist | | | | | At | Signature | + + + + + + | WBC | 26.6 (H)Comment: Testing | 3.8 - 11.0 K/uL | EXTERNAL | | | | performed at [facility], [address] | | LAB | | | | [address], | | | | | | [place] [address] | | | | + + + + + + | Non- | 3.81Comment: Testing | 3.70 - 5.10 | EXTERNAL | | | Red Blood | performed at [facility], [address] | M/uL | LAB | | | Cells | [address], | | | | | Counted | [place] [address] | | | | + + + + + + | Hemoglobin | 9.9 (L)Comment: Testing | 11.3 - 15.5 | EXTERNAL | | | | performed at [facility], [address] | g/dL | LAB | | | | [address], | | | | | | [place] [address] | | | | + + + + + + | Hematocrit, | 31.9 (L)Comment: Testing | 34.0 - 46.0 % | EXTERNAL | | | POC | performed at [facility], [address] | | LAB | | | | [address], | | | | | | [place] [address] | | | | + + + + + + | MCV | 83.8Comment: Testing | 80.0 - 100.0 fl | EXTERNAL | | | | performed at [facility], [address] | | LAB | | | | [address], | | | | | | [place] [address] | | | | + + + + + + | MCH | 26.0 (L)Comment: Testing | 27.0 - 34.0 pg | EXTERNAL | | | | performed at [facility], [address] | | LAB | | | | [address], | | | | | | [place] [address] | | | | + + + + + + | MCHC | 31.0 (L)Comment: Testing | 32.0 - 35.5 | EXTERNAL | | | | performed at [facility], [address] | g/dL | LAB | | | | [address], | | | | | | [place] [address] | | | | + + + + + + | RDW-CV | 47.3Comment: Testing | 37 - 53 fl | EXTERNAL | | | | performed at [facility], [address] | | LAB | | | | [address], | | | | | | [place] [address] | | | | + + + + + + | Platelet | 311Comment: Testing | 150 - 400 K/uL | EXTERNAL | | | Count | performed at [facility], [address] | | LAB | | | Plasma | [address], | | | | | | [place] [address] | | | | + + + + + + | MPV | 7.9Comment: Testing | fl | EXTERNAL | | | | performed at [facility], [address] | | LAB | | | | [address], | | | | | | [place] [address] | | | | + + + + + + | Differentia | MANUALComment: Testing | | EXTERNAL | | | l Type | performed at [facility], [address] | | LAB | | | | [address], | | | | | | [place] [address] | | | | + + + + + + | Segmented | 79Comment: Testing | % | EXTERNAL | | | Neutrophils | performed at [facility], [address] | | LAB | | | Manual | [address], | | | | | | [place] [address] | | | | + + + + + + | % Bands | 10Comment: Testing | % | EXTERNAL | | | | performed at [facility], [address] | | LAB | | | | [address], | | | | | | [place] [address] | | | | + + + + + + | % | 2Comment: Testing | % | EXTERNAL | | | Metamyelocy | performed at [facility], [address] | | LAB | | | le[address] | [address], | | | | | | [place] [address] | | | | + + + + + + | Lymphocytes | 3Comment: Testing | % | EXTERNAL | | | Manual | performed at [facility], [address] | | LAB | | | | [address], | | | | | | [place] [address] | | | | + + + + + + | Monocytes | 6Comment: Testing | % | EXTERNAL | | | Manual | performed at [facility], [address] | | LAB | | | | [address], | | | | | | [place] [address] | | | | + + + + + + | Absolute | 21.0 (H)Comment: Testing | 1.9 - 7.4 K/uL | EXTERNAL | | | Neutrophils | performed at [facility], [address] | | LAB | | | | [address], | | | | | | [place] [address] | | | | + + + + + + | Bands | 2.7 (H)Comment: Testing | 0 - 0.2 K/uL | EXTERNAL | | | Manual | performed at [facility], [address] | | LAB | | | | [address], | | | | | | [place] [address] | | | | + + + + + + | Absolute | 0.5 (H)Comment: Testing | K/uL | EXTERNAL | | | Metamyelocy | performed at [facility], [address] | | LAB | | | [address] | [address], | | | | | | [place] [address] | | | | + + + + + + | Absolute | 0.8 (L)Comment: Testing | 1.0 - 3.9 K/uL | EXTERNAL | | | Lymphocytes | performed at [facility], [address] | | LAB | | | | [address], | | | | | | [place] [address] | | | | + + + + + + | Absolute | 1.6 (H)Comment: Testing | 0 - 0.8 K/uL | EXTERNAL | | | Monocytes | performed at [facility], [address] | | LAB | | | | [employer], | | | | | | [place] [address] | | | | + + + + + + | RBC | 1+Comment: HYPONORMAL | | EXTERNAL | | | Morphology | PLT MORPHTesting | | LAB | | | | performed at [facility], [address] | | | | | | [address], | | | | | | [place] [address] | | | | | | | [...] | + +---------+ + + C-Reactive Protein (02/25/2014 6:40 PM PST) + + + + + + | Component | Value | Ref Range | Performed | Pathologist | | | | | At | Signature | + + + + + + | CRP | 29.1 (H)Comment: Testing | mg/dL | EXTERNAL | | | | performed at [facility], [address] | | LAB | | | | [address], | | | | | | [place] [address] | | | | + + + + + + + + | Specimen | + + | Blood specimen | | (specimen) | + + + +---------+ + + | Performing | Address | City/State/Zipcode | Phone Number | | Organization | | | | + +---------+ + + | EXTERNAL LAB | | | | + +---------+ + + Hemoglobin A1C (02/25/2014 6:40 PM PST) + + + + + + | Component | Value | Ref Range | Performed | Pathologist | | | | | At | Signature | + + + + + + | Hemoglobin | 7.7 (H)Comment: The | 4.0 - 6.0 % | EXTERNAL | | | A1c | [place] [employer] | | LAB | | | | Association considers a | | | | | | hemoglobin A1c result of | | | | | | <7.0% to be the goal of | | | | | | diabetic therapy. | | | | | | When results are | | | | | | consistently >8.0%, the | | | | | | ADA suggests | | | | | | reevaluation of the | | | | | | treatment regimen. The | | | | | | testing method used is | | | | | | certified traceable to | | | | | | the Diabetes Control and | | | | | | Complications Trial | | | | | | reference method.Testing | | | | | | performed at [facility], [address] | | | | | [address] | | | | | | [place] [address] | | | | + + + + + + | Glycohemogl | 174Comment: The ADA | mg/dL | EXTERNAL | | | obin | considers an eAG result | | LAB | | | (GHb),Total | of LT 154 mg/dL to be | | | | | | the goal of diabetic | | | | | | therapy. Estimated | | | | | | Average Glucose | | | | | | calculated from | | | | | | hemoglobin A1c by use of | | | | | | the ADA recommended | | | | | | formula.Testing | | | | | | performed at [facility], [address] | | | | | | [address] | | | | | | [place] [address] | | | | + + + [...] + +---------+ + + Comprehensive Metabolic Panel (02/25/2014 6:40 PM PST) + + + + + + | Component | Value | Ref Range | Performed | Pathologist | | | | | At | Signature | + + + + + + | Na | 137Comment: Testing | 135 - 143 | EXTERNAL | | | | performed at [facility], [address] | mmol/L | LAB | | | | [address], | | | | | | [place] [address] | | | | + + + + + + | K | 3.6Comment: Testing | 3.5 - 4.9 | EXTERNAL | | | | performed at [facility], [address] | mmol/L | LAB | | | | [address], | | | | | | [place] [address] | | | | + + + + + + | Cl | 108Comment: Testing | 99 - 109 mmol/L | EXTERNAL | | | | performed at [facility], [address] | | LAB | | | | [address], | | | | | | [place] [address] | | | | + + + + + + | CO2 | 21 (L)Comment: Testing | 23 - 32 mmol/L | EXTERNAL | | | | performed at [facility], [address] | | LAB | | | | [address], | | | | | | [place] [address] | | | | + + + + + + | Anion Gap | 12Comment: Testing | 5 - 20 mmol/L | EXTERNAL | | | | performed at [facility], [address] | | LAB | | | | [address], | | | | | | [place] [address] | | | | + + + + + + | Glucose, | 102 (H)Comment: Testing | 65 - 99 mg/dL | EXTERNAL | | | Fasting | performed at [facility], [address] | | LAB | | | | [address], | | | | | | [place] [address] | | | | + + + + + + | BUN | 35 (H)Comment: Testing | 8 - 25 mg/dL | EXTERNAL | | | | performed at [facility], [address] | | LAB | | | | [address], | | | | | | [place] [address] | | | | + + + + + + | Creatinine | 1.23 (H)Comment: Testing | 0.50 - 1.00 | EXTERNAL | | | | performed at [facility], [address] | mg/dL | LAB | | | | [address], | | | | | | [place] [address] | | | | + + + + + + | BUN/Creatin | 28Comment: Testing | | EXTERNAL | | | ine Ratio | performed at [facility], [address] | | LAB | | | | [address], | | | | | | [place] [address] | | | | + + + + + + | Calcium | 7.7 (L)Comment: Testing | 8.5 - 10.2 | EXTERNAL | | | | performed at [facility], [address] | mg/dL | LAB | | | | [address], | | | | | | [place] [address] | | | | + + + + + + | Protein, | 6.4Comment: Testing | 6.3 - 8.2 g/dL | EXTERNAL | | | Total | performed at [facility], [address] | | LAB | | | | [address], | | | | | | [place] [address] | | | | + + + + + + | Albumin | 2.8 (L)Comment: Testing | 3.6 - 5.0 g/dL | EXTERNAL | | | | performed at [facility], [address] | | LAB | | | | [address], | | | | | | [place] [address] | | | | + + + + + + | Globulin | 3.6Comment: Testing | 1.3 - 4.9 g/dL | EXTERNAL | | | | performed at [facility], [address] | | LAB | | | | [address], | | | | | | [place] [address] | | | | + + + + + + | A/G Ratio | 0.8 (L)Comment: Testing | 1.0 - 2.4 | EXTERNAL | | | | performed at [facility], [address] | | LAB | | | | [address], | | | | | | [place] [address] | | | | + + + + + + | Bilirubin | 0.7Comment: Testing | 0.1 - 1.5 mg/dL | EXTERNAL | | | Total | performed at [facility], [address] | | LAB | | | | [address], | | | | | | [place] [address] | | | | + + + + + + | ALP, | 116 (H)Comment: Testing | 35 - 115 U/L | EXTERNAL | | | External | performed at [facility], [address] | | LAB | | | | [address], | | | | | | [place] [address] | | | | + + + + + + | AST | 17Comment: Testing | 10 - 45 U/L | EXTERNAL | | | | performed at [facility], [address] | | LAB | | | | [address], | | | | | | [place] [address] | | | | + + + + + + | ALT | 10Comment: Testing | 10 - 65 U/L | EXTERNAL | | | | performed at [facility], [address] | | LAB | | | | [address], | | | | | | [place] [address] | | | | + + + + + + | Estimated | 48 (L)Comment: GFR <60: | mL/min/1.73m2 | EXTERNAL | | | GFR | CHRONIC KIDNEY DISEASE, | | LAB | | | | IF FOUND OVER A 3 MONTH | | | | | | PERIOD.GFR <15: KIDNEY | | | | | | FAILURE.FOR | | | | | | AMERICANS, MULTIPLY THE | | | | | | CALCULATED GFR BY | | | | | | 1.210.Testing performed | | | | | | at [facility], [address] | | | | | | [address], | | | | | | [place] [address] | | | | + + + + + + + + | Specimen | + + | Blood specimen | | (specimen) | + + + +---------+ + + | Performing | Address | City/State/Zipcode | Phone Number | | Organization | | | | + +---------+ + + | EXTERNAL LAB | | | | + +---------+ + + Culture, Wound, Smear, w/Anaerobe (02/25/2014 6:35 PM PST) + + | Specimen | + + | | + + + + + | Narrative | Performed At | + + + | Specimen Description OTHER CULTURE | EXTERNAL LAB | | 2+ | | | NORMAL UROGENITAL ODETTE | | | Testing performed at [facility], | | | [address] [place] [address] | | + + + + +---------+ + + | Performing | Address | City/State/Zipcode | Phone Number | | Organization | | | | + +---------+ + + | EXTERNAL LAB | | | | + +---------+ + + MRSA NAAT (02/25/2014 6:33 PM PST) + + | Specimen | + + | | + + + + + | Narrative | Performed At | + + + | S[facility]AR[facility](NOSE) | EXTERNAL LAB | | Testing performed at [facility];[address] [place] [address];[place] [address] MRSA PCR | | | NEGATIVE Testing performed at | | | [facility];[address] [place] [address];[place] [address] | | + + + + +---------+ + + | Performing | Address | City/State/Zipcode | Phone Number | | Organization | | | | + +---------+ + + | EXTERNAL LAB | | | | + +---------+ + + documented in this encounter Visit Diagnoses Not on filedocumented in this encounter
--- OUTSIDE RECORDS SUMMARY | ~2020-01-02 | XMS | Encounter Summary ---
Demographics + + + | Address | [address] | | | [place] [address] | + + + | Home Phone | | + + + | Preferred Language | Unknown | + + + | Marital Status | | + + + | Bahai Affiliation | 1041 | + + + | Race | Unknown | + + + | Ethnic Group | Not or | + + + Author + + + | Author | [facility] | | | and [place] | + + + | Organization | [facility] | | | [...] Team Providers + +------+ + | Care Panel Sewer Name | Role | Phone | + +------+ + PCP | Unavailable | + +------+ + Encounter Details +--------+ + + + + | Date | Type | Department | Care Team | Description | +--------+ + + + + | 12/07/ | Abstract | [facility] | [facility] | | | 2011 | | Conversion Location | SR | | | | | [address] | | | | | | [place], [place] | | | | | | [address] | | | | | | [phone] | | | +--------+ + + + [...] + + + | Blood Pressure | 120/50 | 10/16/2010 12:00 AM | | | | | PDT [...] + + + + | Weight | 94.6 kg (208 lb 8 | 10/16/2010 12:00 AM | | | | oz) | PDT | | + + + + + | Height | 165.1 cm (5' 5") | 07/21/2010 12:00 AM | | | | | PDT | | + + + + + | Body Mass Index | 34.7 | 07/21/2010 12:00 AM | | | | | PDT | | + + + + + documented in this encounter Plan of Treatment +--------+---------+ + + + | Date | Type | Specialty | Care Team | Description | +--------+---------+ + + + | 01/15/ | Office | Rheumatology | [place], | | | 2019 | Visit | | [address] | | | | | | [address] | | | | | | [place] [address] | | | | | | [phone] | | | | | | | | +--------+---------+ + + + documented as of this encounter Visit Diagnoses Not on filedocumented in this encounter
--- OUTSIDE RECORDS SUMMARY | ~2020-01-02 | XMS | Encounter Summary ---
Demographics + + + | Address | [address] | | | [place] [address] | + + + | Home Phone | | + + + | Preferred Language | Unknown | + + + | Marital Status | | + + + | Anabaptism Affiliation | 1041 | + + + [...] Team Providers + +------+ + | Care Payroll Analyst Name | Role | Phone | + +------+ + | Jean Carlos Crowell PA-C | PCP | | + +------+ + Reason for Visit +--------+--------+ + | Reason | Onset | Comments | | | Date | | +--------+--------+ + | Other | 10/14/ | Called to conf/prereg/screen | | | 2020 | | +--------+--------+ + Encounter Details +--------+ + + + + | Date | Type | Department | Care Team | Description | +--------+ + + + + | 10/14/ | Telephone | [facility] | [place], | Other (Called to | | 2019 | | RHEUMATOLOGY [address] | [address] | conf/prereg/screen) | | | | [address] | [address] | | | | | [place] | [place] [address] | | | | | [address] | [phone] | | | | | [phone] | | | +--------+ + + + [...] this encounter Miscellaneous Notes Telephone Encounter - Lashanda Fuentes - 10/15/2019 2:41 PM PDT1. Do you currently have a c ough, SOB, a fever, loss of taste or smell or sore throat?no 2. Have you been in contact with anyone diagnosed with or currently being tested for Covid- 19?no Remind patients of no visitor policy Remind patients to wear a mask documented in this encoun ter Plan of Treatment +--------+---------+ + + + | Date | Type | Specialty | Care Team | Description | +--------+---------+ + + + | 01/15/ | Office | Rheumatology | [place], | | | 2019 | Visit | | [address] | | | | | | [address] | | | | | | [place] [address] | | | | | | [phone] | | | | | | | | +--------+---------+ + + + documented as of this encounter Visit Diagnoses Not on filedocumented in this encounter"
[~2020-01-02 10:21] MED LIST: ACIDOPHILUS LA1 EACH PO; ARAVA10 MG PO; ASPIRIN PO; ASPIRIN81 MG PO; CALCIUM 600 +1 EA11 PO; CELEBREX200 MG PO; CELECOXIB200 MG PO; COZAAR25 MG PO; COZAAR50 MG PO; FERROUS SULFAT325 MG PO; HYDROCODON-ACE1 EAC8 PO; HYDROMORPHONE HC4 MG PO; LANTUS SOL100 UNIT/1 SUB-Q; LANTUS100 UNIT/1 SQ; LANTUS100 UNITS/; LEVOTHYROXINE25 MCG PO; LOTRIMIN AF24 GM TOP; METFORMIN HCL1000 MG PO; MICARDIS20 MG PO; MULTIVITAMINS1 EAC7 PO; NORCO 5-325 TA1 EACH PO; NOVOLOG100 UNITS/ SUB-Q; OMEPRAZOLE20 MG PO; OMEPRAZOLE40 MG PO; OXYCODONE HCL10 MG PO; PAXIL20 MG PO; SIMVASTATIN10 MG PO; SULFASALAZINE500 M1 PO; VICTOZA 3-0.6 MG/0.1 SUB-Q; VITAMIN D35000 UNIT PO; ZOFRAN ODT4 MG SL
[2020-01-02] MEDS ORDERED: ATORVASTATIN CA10 MG PO (11:56)
[2020-01-02] MEDS ORDERED: DICLOFENAC SOD100 G1 TOP (11:59)
[2020-01-02] MEDS ORDERED: FOLIC ACID1 MG PO (11:59)
[2020-01-02] MEDS ORDERED: ACETAMINOPHEN-1 EAC1 PO (12:02)
[2020-01-02] MEDS ORDERED: TIROSINT25 MCG PO (12:03)
[2020-01-02] MEDS ORDERED: SERTRALINE HCL100 MG PO (12:04)
[2020-01-02] MEDS ORDERED: METHOTREXATE2.5 MG PO (12:04)
[2020-01-02] MEDS ORDERED: GLUCOPHAGE1000 MG PO (12:04)
[2020-01-02] MEDS ORDERED: NOVOLOG FL100 UNIT/1 SUB-Q (12:05)
[2020-01-02] MEDS ORDERED: ZANAFLEX4 M1 PO (12:05)
[2020-01-02] MEDS ORDERED: TUMS200 MG PO (12:06)
[2020-01-02] MEDS ORDERED: NORCO 5-325 TA1 EACH PO (15:15)
== END 2020-01-02 15:34 | disposition home or self-care (01) ==
LOC: ED 10:21
DX: T38.3X1A Poisoning by insulin and oral hypoglycemic [antidiabetic] drugs, accidental (unintentional), initial encounter (principal); N39.0 Urinary tract infection, site not specified; F32.9 Major depressive disorder, single episode, unspecified; M54.9 Dorsalgia, unspecified; E11.9 Type 2 diabetes mellitus without complications; I10 Essential (primary) hypertension; F17.200 Nicotine dependence, unspecified, uncomplicated; Z88.5 Allergy status to narcotic agent; Z88.8 Allergy status to other drugs, medicaments and biological substances; Z88.1 Allergy status to other antibiotic agents; Z79.899 Other long term (current) drug therapy; Z79.4 Long term (current) use of insulin; Z79.82 Long term (current) use of aspirin
CPT/HCPCS: 80053; 80176; 81001; 83690; 83735; 84443; 85025; 96365; 96375; 99285-25; G0480; J0696; J1885

== ENCOUNTER 2022-08-05 08:45 | Inpatient (IN) | payer BC, MEDICARE, OTHER ==
[~2022-08-05] VITALS: Ht 154.9 cm; Wt 76.0 kg
[~2022-08-05 08:45] MED LIST changes: +ACETAMINOPHEN-1 EAC1 PO; +ATORVASTATIN CA10 MG PO; +DICLOFENAC SOD100 G1 TOP; +FOLIC ACID1 MG PO; +GLUCOPHAGE1000 MG PO; +KEFLEX500 MG PO; +METHOTREXATE2.5 MG PO; +NOVOLOG FL100 UNIT/1 SUB-Q; +SERTRALINE HCL100 MG PO; +TIROSINT25 MCG PO; +TUMS200 MG PO; +ZANAFLEX4 M1 PO
--- NOTE | 2022-08-05 13:03 | NUR ---
REPORT RECEIVED FROM DILCIA MAGANA. AWAITINGS PTS ARRIVAL TO MED/SURG.
--- NOTE | 2022-08-05 14:00 | NUR ---
PT ARRIVED FROM ER. PT UP TO STAND AND PIVOT TO BEDSIDE COMODE. LARGE INCONTINANT EPISODE NOTED. PT VOIDS 400ML ADDITIONAL URINE IN COMODE, CLEAR YELLOW. FAIZAN CARE DONE. LEGS WASHED, SOCKS AND DEPENDS CHANGED. 1 PERSON ASSIST TO BED. PT ABLE TO POSITION SELF IN BED. PURE WICK CATHTER PLACED FOR COMFORT AND SKIN PROTECTION. PT VERY SHORT OF BREATH WITH ACITVITY. REQUIRES 4L O2 BY NC WITH ACTIVITY. PT WEANED BACK TO 2L O2 BY NC WITH OXGYEN SATUARTIONS ABOVE 92% ONCE RESTING IN BED. LUNG SOUNDS CLEAR. NORMAL WORK OF BREATHING NOTED WITH REST. I.S. PROVIDED, PT REACHES 750ML X5. TELEMETRY MONITORING PLACED, NORMAL SINUS RYTHEM SEEN ON MONITOR WITH HEART RATE IN THE 90'S. BOWEL TONES ACTIVE. HERNIA LIKE LUMP NOTED IN CENTERAL ABDOMEN. PT REPORTS "THATS BEEN THERE FOR A WHILE." ICE WATER PROVIDED. LUNCH PROVIDED. MD CONSULTED AND STATES TO GIVEN INSULIN PER SLIDING SCALE AND CHECK BLOOD SUGAR NOW PRIOR TO LUNCH. ORDERS CALLED TO PHARMACIST, MEDICAITON GIVEN. NO ADDITIONAL REQUSETS OR COMPLAINTS. CALL LIGHT WIHTIN REACH. BED RAILS UP.
[2022-08-05 14:01] VITALS: BP 100/68
[2022-08-05] MEDS ORDERED: GLIPIZIDE ER2.5 MG PO (14:27)
[2022-08-05] MEDS ORDERED: LO-DOSE ASPIRIN81 MG PO (14:28)
[2022-08-05] MEDS ORDERED: METFORMIN HCL500 M1 PO (14:30)
[2022-08-05] MEDS ORDERED: OZEMPIC1 MG/0.71 SUB-Q (14:30)
--- NOTE | 2022-08-05 14:31 | NUR ---
THIS RN TO ROOM TO CHECK ON PT. PT RESTING IN BED WATCHING TV. IV PUMP ALARMING, INFUSION AND FLUSH COMPLETE. IV SALINE LOCKED PER PROTOCOL. PT DENIES ADDITIONAL REQUESTS OR COMPLAINTS. CALL LIGHT WITHIN REACH. FAMILY AT BEDSIDE. PHARMACIST TO BEDSIDE TO TALK WITH PT ABOUT HOME MEDICATIONS.
--- NOTE | 2022-08-05 14:50 | NUR ---
MED REC COMPLETE
--- NOTE | 2022-08-05 15:40 | NUR ---
HOURLY ROUNDING. PT RESTING IN BED. PT REPORTS PAIN HAS IMPROVED TO 5/10 AND THAT SHE IS "FEELIGN BETTER." OXYGEN SATUARTION OF 94% ON 2L O2 BY NC. PT REQUESTS TO REMOVE OXYGEN. EDUCATION DONE WITH PT WHO VERBALIZES UNDERSTANDING OF NEED FOR CONTINUED OXYGEN. PT REPORTS "AT HOME I TAKE THREE EXTRA STRENGTH TYLENOL AND 2 TO 4 CELECOXIB AT A TIME TO HELP WITH THE PAIN, WHY CAN'T I TAKE 3 HERE." EDUCATION DONE WITH PT. PT VERBAZLIES UNDERSTANDING OF NEED TO TAKE MEDCICATIONS PER MD ORDER TO PREVENT SIDE EFFECTS TO LIVER AND KIDENYS, HOWEVER, PT CONTINUES TO ASK FOR ADDITIONAL TABLETS, STATING "I WON'T TELL ANYONE AND THAT'S HOW I LIKE TO TAKE IT." MD UPDATED. NO ADDITIONAL NEW ORDERS AT THIS TIME. NO ADDITIONAL REQUESTS OR COMPLAINTS. CALL LIGHT WITHIN REACH. BED RAILS UP. FAMILY AT BEDSIDE.
--- NOTE | 2022-08-05 16:45 | NUR ---
Spoke with pt and her family members. Pt lives in a house with 0 steps with her spouse. She has a cane, walker, and a shower chair. She does the cooking and cleaning and her spouse assists her with the shopping. She plans on dc to home when medically cleared. Spouse and family will help her with household tasks and any needs.She denies any needs and will dc to home when able.
[2022-08-05 17:39] VITALS: BP 101/55
--- NOTE | 2022-08-05 17:52 | NUR ---
EVENING MEDICATION DUE. PT FINISHED WITH DINNER, ATE ~50% OF DINNER. INSULIN GIVEN. PT REPORTS SHE IS HAVING [place] FROM HER FAMILY CHANELLE, EDUCATION DONE REGARDING CARBOHYDRATE CONTROL. PT VERBALIZES UNDERSTANDING. PT REPORTS 4/10 PAIN "EVERYWHERE" AT THIS TIME. ASKS FOR MORE PAIN MEDICATION. MD AWARE. NO ADDITIONAL REQUESTS OR COMPLAINTS. CALL LIGHT WITHIN REACH. BED RAILS UP.
--- NOTE | 2022-08-05 18:53 | NUR ---
PT ADMITTED THIS SHIFT FOR HYPOXIC RESPIRATORY FAILURE. PT REMAINS IN BED THIS SHIFT. UP TO COMODE X1 DOES NOT TOLERATE ACTIVITY WELL. PT TOELRATING 60G CARBE DIET WITH GOOD INTAKE, BLOOD SUGAR CHECKS WITH MEALS AND HS WITH SLIDING SCALE INSULIN GIVEN. PT REMAINS ON 2L O2 BY NC. TELEMETRY MONITORING IN PLACE WITH SINUS RYTHEM NOTED. PT REPORTS FREQUENT PAIN FOR WHICH SHE SELF MEDICATES AT HOME (SEE RN NOTE). PRN PAIN MEDICAITON GIVEN. PURE WICK IN PLACE, PT VOIDING QUANTITY SUFFICIENT. FAMILY AT BEDSIDE. PT USESE CALL LIGHT AND MAKES NEEDS KNOWN.
--- NOTE | 2022-08-05 19:46 | NUR ---
Received report from SUNITHA Arenas RN @ [phone]. Pt awake, alert, with daughter at bedside. Pt lives with . No needs at this time, aware of how to call for help.
--- NOTE | 2022-08-05 20:40 | NUR ---
call light answered, pt up sba to bsc and voided unmeasured void x1 and had medium bm x1, pt back in bed. no additional needs or concerns, call light in reach. primary rn danitza updated.
[2022-08-05 21:02] VITALS: BP 101/57
--- NOTE | 2022-08-05 21:32 | NUR ---
IN ROOM TO COLLECT EVENING ACCUCHECK AND INSULIN SS- SEE EMAR. PRN TYLENOL ALSO GIVEN PER REQUEST, pt REPORTS 10/04 PAIN R/T HEADACHE. PRIMARY RN JONATHAN IN ROOM TO TAKE OVER CARES, CALL LIGHT IN REACH.
--- NOTE | 2022-08-05 22:20 | NUR ---
PT IN BED, WATCHING TV, NO NEEDS AT THIS TIME.
[2022-08-06 01:27] VITALS: BP 113/52
--- NOTE | 2022-08-06 01:56 | NUR ---
Patient used bedside commode and transferred well. Patient had a medium BM and about 300 urine output. Got fresh ice water. Nothing else needed at this time. Call light within reach.
--- NOTE | 2022-08-06 02:17 | NUR ---
PT ASSESSMENT COMPLETED. UNCHANGED FROM PREVIOUS ASSESSMENT. PT STATES THAT USING THE BSC CAUSES LESS SOB THAN WALKING INTO THE BATHROOM. STATES SHE IS FEELING BETTER THAN ADMISISON. CALLS APPROPRIATE. TEL CONTINUES SR AT 86. CALL LIGHT WITHIN REACH. DENIES OTHER NEEDS.
--- NOTE | 2022-08-06 03:58 | NUR ---
REPORT RECEIVED FROM JONATHAN HA. PT RESTING WITH EYES CLOSED, RESP EVEN AND UNLABORED. RESTING HR IS 80'S SINUS RHYTHM PER TELEMETRY.
[2022-08-06 05:20] VITALS: BP 98/56
[2022-08-06 05:27] VITALS: BP 98/50
--- NOTE | 2022-08-06 05:32 | NUR ---
IN TO SEE PT, DO ASSESSMENT. BP OF 98/50 MAP 63 NOTED, WILL RECHECK IN A BIT. LUNGS CLEAR, VERY FAINT COARSE SOUNDS HEARD IN BASES. IS AND CORONET DONE WITH PT. PT REPORTS OVERALL FEELING LESS SOB THAN WHEN SHE FIRST GOT HERE. REMAINS ON 2L/O2 WITH SPO2 96% WHILE RESTING IN BED. PT DENIES PAIN AT THIS TIME, AWAKE IN BED NOW WATCHING TV, DENIES NEEDS.
--- NOTE | 2022-08-06 07:16 | NUR ---
REPORT RECEIVED FROM DILCIA BUSTOS. PT RESTING IN BED WITH EYES CLOSED, RESPIRATIONS EVEN AND UNLABORED. SINUS RYTHEM IN THE 90'S NOTED ON MONITOR. PT ALLOWED TO REST UNDESTURBED, CALL LIGHT WITHIN REACH. BED RAILS UP.
--- NOTE | 2022-08-06 07:50 | NUR ---
MORNING ASSESSMENT AND MEDICATION DUE. PT UP TO CHAIR, WATCHING TV AND VISITING WITH FAMILY. PT DENIES PAIN AND NAUSEA AT THIS TIME. PT ALERT AND OREINTED TO ALL. PT REPORTS SHE FEELS BETTER THSI MORNING AND WAS MAYNOR TO GET UP TO THE CHAIR "BETTER." PT REPORTS BREATHING FEELS IMPROVED. LUNG SOUNDS CLEAR. PT DEMONSTRATES USE OF CORNET X5 AND I.S. X5 REACHING 750ML. AFTER I.S. AND CORNET USE, OXYGEN SATURATIONS DROP TO 83% ON 2L O2 BY NC. OXYGEN INCREASED TEMPERORALLY TO 4L O2 BY NC. PT RECOVERS QUICKLY WITH OXYGEN SATURATION IMPROVING TO 92-94%. PT WEANKED TO 2L O2 BY NC TO MAINTAIN OXGYEN SATUARTIONS 90-92%. HEART TONES REGULAR WITH SINUS RYTHEM NOTED ON TELMETRY MONITORING, HEART RATE IN THE 90'S. NEUROPATHY UNCHANGED. FIRMNESS TO LOWER ABDOMEN, HERNIA LIKE LUMP, UNCHANGED. PURE WICK NO LONGER IN PLACE. DEPENDS IN PLACE. PT REMAINS UP TO CHAIR, EATING BREAKFAST, NO ADDITIONAL REQUESTS OR COPMLAINTS. CALL LIGHT WITHIN REACH.
--- NOTE | 2022-08-06 08:18 | NUR ---
PATIENT UP IN CHAIR FOR BREAKFAST. AM CARE COMPLETED. PT TRANSFERRED TO [facility] AND TO CHAIR WITH SBA. ICE WATER GIVEN. CALL LIGHT WITHIN REACH.
[2022-08-06 08:59] VITALS: BP 106/51
--- NOTE | 2022-08-06 09:02 | NUR ---
PATIENT IN CHAIR AFTER MEAL. VITALS AND I/O'S COMPLETED. FAMILY IN ROOM. CALL LIGHT WITHIN REACH.
--- NOTE | 2022-08-06 09:30 | NUR ---
MEDICATION DUE. PT REMAINS UP TO CHAIR. VISITING WITH FAMILY. PT CONTINUES TO DENY PAIN AND NAUSEA. IV ASSESED, WNL. IV ABX STARTED. OXGYEN SATURATION REMAINS 90-92% ON 2L O2 BY NC. PT DENIES ADDITONAL REQUESTS OR COMPLAINTS. CALL LIGHT WITHIN REACH.
--- NOTE | 2022-08-06 11:40 | NUR ---
HOURLY ROUNDING: THIS RN TO ROOM TO CHECK ON PT. PT REMAINS UP TO CHAIR. TOLERATING 2L O2 BY NC WITH OXGYEN SATUARTIONS ABOVE 90%. PTS FAMILY HAS BROUGHT HER OZEMPIC FROM HOME. ORDER RETRIEVED FROM DR VALDERRAMA AND MEDICATION SENT TO PHARMACY FOR VARIFICATION. PT VERBALIZES UNDERSTANDING OF PLAN OF CARE PER ROUNDS WITH DR. VALDERRAMA. PT STATES HER QUESTIONS HAVE BEEN ANSWERED. NEW MEDICATION ORDERS PLACED. NO ADDITIONAL REQUESTS OR COMPLAINTS. CALL LIGHT WITHIN REACH. FAMILY AT BEDSIDE.
--- NOTE | 2022-08-06 12:42 | NUR ---
NEW MEDICATIONS VARIFIED BY [facility]. GIVEN ORDERED. PT FINISHED WITH LUNCH AT ~50%. PT CONTINUES TO REPORT BREATHINGS "FEELS BETTER THAN YESTERDAY." HOWEVER OXGYEN SATURATIONS NOTED TO BE 97-89% ON 2L O2 BY NC. PT DEMONSRATES USE OF ACAPELLA X5 WHICH RAISES OXGYEN TO 90% FOR ~5 MINUTES AFTER WHICH SATURATION DROPS AGAIN TO 88%. MILD TACHYCARDIA ALSO NOTED AT 90-110 BMP ON TELEMTRY MONTIORING. OXGYEN INCREASED TO 3L O2 BY NC WHICH RASIES OXYGEN SATUATIONS TO 93%. PT DENIES ADDITIONAL REQUESTS OR COMPLAINTS. CALL LIGHT WITHIN REACH. PT REMAINS UP TO CHAIR. FAMILY AT BEDSIDE.
--- NOTE | 2022-08-06 13:30 | NUR ---
Notified by staff, family would like to visit. In and spoke with pt and her daughters. They would like to be added to HIPPA forms so daughter's can contact the Dr and get information. They would also like to complete this paperwork for the [facility]. They have spoken with Patt Madison from [facility]. I called our admitting department and they will get new signatures from [facility]. I attempted to call Patt and could not reach. I left a message requesting she fax the medical releases and I will have the pt sign and fax back to her.
--- NOTE | 2022-08-06 13:34 | NUR ---
AFTERNOON ASSESSMENT DUE. PT REMAINS UP TO CHAIR. VISITING WITH FAMILY. CASE MANAGEMENT TO BEDSIDE TO TALK WITH FAMILY. PT STATES SHE WOULD LIKE HER DAUGHTERS TO HAVE ACCESS TO HER MEDICAL RECORDS. BRIAN CALLS TO CONFIRM THIS CONVERSATION WITH FAMILY. PAPERWORK BEING COMPLETED BY FAMILY AND JEFRY, FINISH SPECIALIST. PT REPORTS PAIN HAS IMPROVED WITH CELEBREX, NOW 05/07. PT DENIES NEED FOR ADDITIONAL PAIN MEDICATION. WEAKNESS AND FATIGUE CONTINUE ALTHOUGH PT REPORTS THESE HAVE IMPROVED SINCE YESTERDAY. PT ALERT AND OREINTED TO ALL. PT REMAINS ON 3L O2 BY ND WITH OXGYEN SATURATIONS 90-93%. LUNG SOUNDS CLEAR. ACAPELLA USE DEMONSTRATED. PT REPORTS SHE CONTINUES TO COUGH UP YELLOW PHLEM, SMALL AMOUNTS. SINUS RYTHEM CONTINUES ON TELEMETRY MONITORING WITH MILD TACHYCARDIA NOTED AT TIMES, HEART RATE 90-110. ABDOMEN REMAINS SOFT WITH LUMP IN LOWER MIDLINE OF ABDOMEN, FIRM SPOT ON THIS LUMP NEAR DISTAL END. pT STATES "IT'S ALWAYS LIKE THAT." PT REPORST SHE WEARS ABDOMINAL BINDER IF HER ABDOMEN BEGINS TO BOTHER HER. DENIES ABDOMINAL PAIN AT THIS TIME. DRY DEPENDS IN PLACE. PUREWICK CONTINUES TO BE OFF. PT GIVES HERSELF OZEMPIC INJECTION WITH SBA, ADMISTERS APPROPRIATLY. PT DENEIS ADDITIONAL REQUESTS OR COMPLAINTS. FAMILY REMAINS AT BEDSIDE. CALL ARNALDO BHANDARI.
[2022-08-06 13:46] VITALS: BP 104/58
--- NOTE | 2022-08-06 13:49 | NUR ---
PATIENT IN CHAIR AFTER MEAL WITH FAMILY. VITALS AND I/O'S COMPLETED. CALL LIGHT WITHIN REACH.
--- NOTE | 2022-08-06 14:24 | NUR ---
HOURLY ROUNDING. PT REMAINS UP TO CHAIR. OXGYEN SATUARTION OF 90% ON 3L O2 BY NC. HEART RATE IN THE 90'S, NORMAL SINUS RYTHEM. PT REPORTS PAIN CONTINUES TO BE WELL CONTROLLED AT 05/07. PT DENIES NEED FOR ADDITIONAL PAIN MEDICATION. PT VISITING WITH FAMILY. NO ADDITIONAL REQUESTS OR COMPLAINTS. CALL LIGHT WITHIN REACH.
--- NOTE | 2022-08-06 15:32 | NUR ---
THIS RN TO ROOM TO CHECK ON PT. PT UP TO RESTROOM WITH UTILIZATION MANAGEMENT MANAGER, REMAINS ON 3L O2 BY NC AND OXGYEN SATURATION HAS DROPPED TO LOW 80'S. PT REPORTS FEELING SHORT OF BREATH AFTE USING RESTROOM. PT GETTING BACK TO BED. OXGYEN SATURATION RECOVERS TO 92%. PT AND UTILIZATION MANAGEMENT MANAGER ENCORUAGED TO NOTIFY NURSING STAFF WHEN SHE WOULD LIKE TO GET UP AGAIN SO OXGYEN NEED WITH ACTIVITY CAN BE EVALUATED. PT REPORTS PAIN REMAINS WELL CONTROLLED AT 2/10 AND DENIES NEED FOR ADDITIONAL PAIN MEDICATIONS. NO ADDITIONAL REQUESTS OR COMPLAINTS. CALL LIGHT WITHIN REACH. BED RAILS UP. FAMILY AT BEDSIDE.
--- NOTE | 2022-08-06 15:44 | NUR ---
PT HERE FOR HYPOXIC RESPIRATROY FAILURE. PT UP WITH 1 PERSON ASSIST AND FWW TO CHAIR AND RESTROOM THIS SHIFT. PT REPORTS SHORTNESS OF BREATH CONTINUES WITH ACTIVITY, OXGYEN SATUARTION SEEN TO DROP DURING ACTIVITY. PT TOELRATING 60G CARB DIET WITH GOOD APPTITITE. TELEMETRY MONITORING CONTINUES WITH HEART RATE 90-110 IN SINUS RYTHEM. OXGYEN TITRATED UP TO 3L O2 BY NC THIS AFTERNOON TO MAINTAIN OXGYEN SATUARTIONS 90-94%. BLOOD SUGAR CHECKS WITH MEALS AND HS WITH SLIDING SCALE INSULIN GIVEN. VERY HIGH SUGARS CONTINUE TO BE SEEN. IV SOLUMEDROL GIVEN. PTS HOME OZEMPIC GIVEN THIS SHIFT. FAMILY AT BEDSIDE THROUGHOUT SHIFT. PT VOIDING QUANITTY SUFFICIENT. PT USES CALL LIGHT AND MAKES NEEDS KNOWN.
--- NOTE | 2022-08-06 16:02 | NUR ---
tried making appt w [facility] but they were closed.
--- NOTE | 2022-08-06 16:40 | NUR ---
THIS RN TO ROOM TO CHECK ON PT. PT EATING SOUP THAT WAS BROUGHT TO HER BY FAMILY FOR DINNER. PT REPORTS SHE HAS "ONLY HAD A BITE OR TWO." BLOOD SUGAR TAKEN. INSULIN GIVEN. OXGYEN SATUARTIONS 87-89% ON 3L O2 BY OK. PT ENCROAUGED TO GET UP OUT OF BED TO EAT. PT REFUSES. PT ENCORAUGED TO REPOSITION AND SIT ON EDGE OF BED TO EAT. PT REFUESES. ACAPELLA USE DEMONSRATED, WITH NO CHANGE IN OXYGENATION. OXGYEN INCREASED TO 4L O2 BY OK WITH OXGYEN SATUATION CLIMBING TO 90-92%. PT CONTINUES VISITING WITH FAMILY. NO ADDITIONAL REQUESTS OR COMPLAINTS. RT UPDATED ON PT STATUS. CALL LIGHT WITHIN REACH. BED RAILS UP.
--- NOTE | 2022-08-06 17:31 | NUR ---
THIS RN TO ROOM TO CHECK ON PT. PT CONTINUES SLOUCHING IN BED. PT REPORTS 8/10 BACK AND NECK PAIN. REPOSITIONING ADVISED. PT AGREES TO BOOSTING IN BED. PT BOOSTED IN BED AN DHEAD OF BED ELEVATED TO 35 DEGREES. PRN PAIN MEDICATION GIVEN (SEE MAR). CPOX APPLIED TO TELEMETRY MONITORING. PT REMAINS AT 89-91% ON 4L O2 BY NC. I.S. USE DEMONSRATED X5 WITH PT REACHIGN 750ML. HEART RATE REMAINS 90-110. NO ADDITIONAL NEEDS AT THIS TIME. CALL LIGHT WITHIN REACH. BED RAILS UP.
--- NOTE | 2022-08-06 18:12 | NUR ---
THIS RN TO ROOM TO CHECK ON PT. PTS OXYGEN SATURATIONS ONCE AGAIN AT 84-90% ON 4L O2 BY NC. HEART RATE 90-110. WORK OF BREATHIGN REMAINS WNL. CRACKELS NOTED IN RIGHT UPPER LOBE OF LUNGS ON ASCULATION. OXGYEN INCREASED TO 6L O2 BYNC AND PT PLACED ON CPOX MONITORING. PT SEEN TO DIP TO 85-88% AND THEN RISE BACK TO 94-95% IN A PATTERN OVER EVERY 1-[address] VALDERRAMA CALLED AND UPDATED REGARDINGS PTS OXYGENATION STATUS. STATE TO HAVE RT EVALUATE PT. MATILDA RT TO BEDSIDE TO EVALUATE PT. UPDATED ON PT STATUS. AGREES WITH ABOVE MENTIONED ASSESSMENTS. PT ALERT AND OREINTED AND REPORTS HER BREATHING "FEELS FINE." DR VALDERRAMA UPDATED BY MATILDA, RT. ORDERS GIVEN TO ADVANCE TO VAPOTHERM IF OXGYEN DEMAND CONTINUES TO INCREASE. PT AND FAMILY UPDATED. PT DENIES ADDITIONAL REQUESTS OR COMPLAINTS. PT REPORTS PAIN TO BACK AND NECK IS "GETTING BETTER." NOW 08/04. NO ADDIDITONAL REQUESTS OR COMPLAINTS. CALL LIGHT WITHIN REACH. BED RAILS UP.
[2022-08-06 18:46] VITALS: BP 113/64
--- NOTE | 2022-08-06 19:34 | NUR ---
SHIFT REPORT RECEIVED FROM PIPER HA, PT AWAKE AND ALERT, DENIES REQUEST AT THIS TIME, PT REMAINS ON OXYGEN AT 6 L/NC.
--- NOTE | 2022-08-06 19:52 | NUR ---
PT AWAKE AND ALERT, REQUEST ASSIST UP TO BSC, 1PA, OXYGEN IN PLACE, TOLERATED FAIR WITH SLIGHT SOB, PT HAD SOFT BROWN BM AND VOIDED 200ML YELLOW URINE, BACK TO BED, VS, I/O AND ASSESSMENT COMPLETED, PT DENIES NEED FOR PAIN MED AT THIS TIME, WATCHING TV.
--- NOTE | 2022-08-06 20:30 | NUR ---
FAMILY INTO VISIT PT, AT END OF VISIT DAUGHTER REPORTED SHE BROUGHT IN PT'S MEDICATION FROM HOME, RN TO ROOM AND REQUEST TO TAKE MEDICATION TO MEDICATION ROOM UNTIL PHARMACY CAN CHECK, PT AGREES, MEDICATION PLACED IN MED TOWER.
--- NOTE | 2022-08-06 21:16 | NUR ---
Assisted RN with repositioning of Pt. No other needs expressed by Pt. Call light left in reach.
--- NOTE | 2022-08-06 22:20 | NUR ---
PT RESTING WITH EYES CLOSE, ACCUCHECK 321, 7 UNITS HUMOLOG INSULIN GIVEN PER ORDER, PT DENIES PAIN AT THIS TIME, ROUNTINE ELEBREX GIVEN PER ORDER.
--- NOTE | 2022-08-06 22:40 | NUR ---
ROUNTINE SOLUMEDROL GIVEN IV PER ORDER, RIGHT FOREARM WITH 20G INTACT AND FLUSHES WELL. RT IN AND REPORTS OXYGEN NOW UP TO 10L PER OXY MASK. PT RESTING WITH EYES CLOSED WHEN LEFT UNDISTURBED.
--- NOTE | 2022-08-07 00:40 | NUR ---
PT ASSISTED UP TO BSC PER SUPERVISOR SLASHING DEPARTMENT, REPORTED TO HAVE VOIDED 300ML, CHARGE NURSE REPORTED PT DESATED DOWN TO APPROX 67 AND SHE UP HER O2 TO 15L/MIN, SATS SLOWLY RISING TO LOW 80'S.
--- NOTE | 2022-08-07 00:45 | NUR ---
PRIMARY RN AND BOWLING BALL MOLDER ALREADY IN ROOM AND ASSISTING pt FROM BED TO BSC TO VOID, SPO2 ON CPOX NOTED TO BE LOW 67%. PRIMARY RN NOTIFIED AND pt TITRATED BY THIS RN FROM 10L OXYMASK TO 15LOXYMASK, pt INSTRUCTED TO TAKE DEEP BREATHS AND COUGH, pt FOLLOWS COMMANDS. SPO2 IMPROVED AND NOW SUSTAINING IN THE LOW 90'S, pt TITRATED BACK TO 10L OXYMASK. WILL CONTINUE TO MONITOR. DURING THIS TIME, NO DISTRESS NOTED FROM pt. WHEN ASKED IF pt WAS SOB, pt SHRUGGED AND STATES, "A LITTLE".
--- NOTE | 2022-08-07 01:04 | NUR ---
PT REPOSITIONED UP IN BED, ENCOURAGED TO COUGH, COUGH PRODUCTIVE OF THICK LIGHT NOLEN SPUTUM, O2 TURNED DOWN TO 10L/NC PER CHARGE NURSE, SATS 89-91%, PT DENIES PAIN OR OTHER REQUESTS.
--- NOTE | 2022-08-07 01:32 | NUR ---
OXYGEN SATS 94%, REMAINS ON 10L PER MASK.
--- NOTE | 2022-08-07 02:45 | NUR ---
PT CONTS ON 10L PER MASK, RESP RATE 24, SATS 94%, PT WITHOUT COMPLAINTS.
--- NOTE | 2022-08-07 03:35 | NUR ---
PT AWAKE, REQUESTS TO BE TURNED OFF BACK DUE TO DISCOMFORT, ALSO REQUESTS HOB TO BE LOWERED, HOB LOWERED SLIGHTLY AND PT LEFT TILT, TELE BATTERY CHANGED, SATS DOWN TO 90%, PLAN TO MONITOR.
--- NOTE | 2022-08-07 04:05 | NUR ---
PT ASLEEP, NOTED SATS CONSISTANTLY 80-82%, OX TURNED UP TO 12L PER MASK WITH NOT MUCH IMPROVEMENT, PT AWAKEN TO BE REPOSITIONED, UP TO BSC, PRE OXYGENATED UP TO 15L, TRANSFERED TO BSC, VOIDED 400ML, BACK TO BED, REPOSITIONED UP IN BED, SATS STABLE ABOVE 90%, FIO2 DECREASED BACK TO 10L PER MASK, PT ATTEMPTING TO REST.
[2022-08-07 05:35] VITALS: BP 113/55
--- NOTE | 2022-08-07 05:35 | NUR ---
PT AWAKEN FOR VS AND ASSESSMENT, IV STERIODS GIVEN PER ORDER, SL PATENT AND FLUSHES WELL, PT DENIES NEED FOR PAIN MED, SLIGHT TILT TO RIGHT, HOB REMAINS APPROX 30 DEGREES ELEVATED. PT RESTING WITH EYES CLOSED, OXYGEN REMAINS AT 10L PER OXY MASK.
--- NOTE | 2022-08-07 07:06 | NUR ---
REPORT RECEIVED FROM DILCIA BENAVIDES. PT RESTING ON RIGHT SIDE WITH EYES CLOSED. RESPIRATIONS EVEN AND UNLABORED. NORMAL SINUS RYTHEM NOTED ON MONITOR WITH HEART RATE IN THE 80'S. OXGYEN SATURATION OF 95% ON 10L BY OXYMASK. PT ALLOWED TO REST UNDESTURBED. CALL LIGHT WITHIN REACH. BED RAILS UP.
--- NOTE | 2022-08-07 07:38 | NUR ---
MORNING ASSESSMENT AND MEDICAITON DUE. PT RESTING IN BED ON RIGHT SIDE, AWAKE AND ALERT. PT REPORTS 2/10 GENERALIZED BODY ACHES AND "MOSTLY IN MY HANDS." PT REQUESTS HER CELECOXIB. SEE MAR FOR MEDICATION GIVEN. STAND BY ASSIST UP TO BEDSIDE COMODE. PT HYPEROXGYENATED WITH OXGYEN UP TO 15L BY OXYMASK PRIOR TO ACTIVITY. PT ABLE TO MAINTAIN OXGYEN SATUARTIONS ABOVE 90% WITH 15L O2 BY OM WHILE UP. PT VOIDS 600ML YELLOW URINE. FAIZAN CARE PER PT. DEPENDS CHANGED. BARRIER CREAM APPLIED TO GLUTEAL AREA PT REPORTS SORENESS TO GLUTEAL AREA. NO REDENESS NOTED. ORAL CARE DONE. MORNING CARES DONE. STAND BY ASSIST UP TO CHAIR. PT REPROTS HER BREATHING FEELS "BETTER TODAY, LIKE I'M NOT GASPING FOR AIR." PT TAKES OFF OXYMASK TO USE I.S AND ACAPELLA AND WASH FACE AND SATURATION DROPS TO 77%. PT RECOVERS AFTER 2-3 MINUTES OF 15L BACK ON OXYMASK. LUNG SOUNDS CLEAR IN ALL LOBES. WORK OF BREATHING REMAINS WNL EVEN WITH LOW SATURATIONS. HIGH FLOW NASAL CANULA PLACED AT 10L INSTEAD OF OXYMASK TO ALLOW PT TO EAT AND INTERACT WITH FAMILY. SATURATIONS REMAIN ABOVE 90%. PT REACHES 750ML X5 ON I.S. AND PERFORMS ACAPELLA X10. PT REPORTS OCCATIONAL PRODUCTIVE COUGH WITH "CLEAR" SPUTUM. NON SEEN AT THIS TIME BY THIS RN. NORMAL SINUS RYTHEM CONTINUES ON TELEMETRY MONITORING WITH HEART RATE IN THE 90'S. ABODOMEN UNCHANGED WITH HERNIA LIKE LUMP TO LOWER ABODMEN. PT DENIES PAIN IN ABDOMEN. MEDICAITONS GIVEN. NO ADDITIONAL REQUESTS OR COMPLAINTS. CALL LIGHT WITHIN REACH.
[2022-08-07 08:05] VITALS: BP 126/59
--- NOTE | 2022-08-07 09:15 | NUR ---
THIS RN TO ROOM TO CHECK ON PT. PT REMAINS UP TO CHAIR, VISITING WITH HER DAUGHTER. PTS DAUGHTER UPDATED ON PT STATUS AND PLAN OF CARE. PT ABLET OE AT 100% OF BREAKFAST AND CONTINUES TO REPORT SHE IS FEELING "BETTER." PT RPEORTS 2/10 GENERALIZED PAIN THAT IS "BETTER IN MY HANDS." PT DENIES ADDITIONAL RQUESTS OR COPMLAINTS. CALL LIGHT WITHIN REACH. FAMILY AT BEDSIDE.
--- NOTE | 2022-08-07 10:15 | NUR ---
THIS RN TO ROOM TO CHECK ON PT. OXGYEN SATUARTIONS 98-100% ON 10L O2 BY NC. PT WEANED TO 8L O2 BY NC WITH OXYGEN SATUARTION ABOVE 92%. PT UP TO BEDSIDE COMODE (OXYGEN INCREASED TO 15L O2 WITH ACTIVITY), VOIDS CLEAR YELLOW URINE WITHOUT ISSUE. FAIZAN CARE DONE PER PT. STAND BY ASSIST BACK TO CHAIR. NO ADDITIONAL REQUESTS OR COMPLAINTS. CALL LIGHT WITHIN REACH. FAMILY AT BEDSIDE.
--- NOTE | 2022-08-07 11:35 | NUR ---
HOURLY ROUNDING: PT UP TO CHAIR VISITING WITH FAMILY. OXGYEN SATUARTIONS REMAIN 97-99%. PT WEANED TO 6L O2 BY MT AND CONTINUES TO MAINTAIN OXYEN SATUARTIONS ABOVE 92%. BLOOD SUGAR TAKEN, CONTINUES TO BE ELEVATED TO THE 300'S. PT DENIES PAIN AND NASUEA. NO ADDITIONAL REQUESTS OR COMPLAINTS. PT AND FAMILY UPDATED ON PLAN OF CARE. CALL LIGHT WITHIN REACH.
--- NOTE | 2022-08-07 12:10 | NUR ---
PTS OXGYEN SATUARTION NOTED TO DROP TO LOW 80%'S AT TIMES. PT REPORTS NO INCRAESED WORK OF BREATHING OR SHORTNESS OF BREATH. OXGEYN INCREASED BACK TO 8L O2 BY NC AND PT IS ABLE TO MAINTAIN OXGYEN SATURATIONS ABOVE 92%. MEDICATION GIVEN. LUNCH DELIVERED. PT EDUCATION DONE REGARDING METHOTREXATE, QUESTIONS ASKED AND ANSWERED. NO ADDITIONAL REQUESTS OR COMPLAINTS. CALL LIGHT WITHIN REACH. FAMILY AT BEDSIDE.
--- NOTE | 2022-08-07 13:30 | NUR ---
HOURLY ROUNDING. PT CONTINES TO HAVE OXGYEN SATUATIONS 97-99% ON 8L O2 BY NC. PT WEANED TO 7L O2 BY NC AND MAINTAINS OXGYEN SATUARTIOSN ABOVE 92%. PT DENIES REQUESTS OR COMPLAINTS. REPORTS PAIN IS WELL CONTROLLED. CALL LIGHT WITHIN REACH. FAMILY AT BEDSIDE.
--- NOTE | 2022-08-07 14:05 | NUR ---
AFTERNOON ASSESSMENT AND MEDICATION DUE. PT REMAINS UP TO CHAIR, VISIGIN WITH FAMILY. PT REPORTS ONGOING 2/10 GENERALIZED PAIN THAT IS TOLERABEL, PT DENIES NEED FOR PAIN MEDICAITON AT THIS TIME. PT CONTINUES TO TOLERATE 7L O2 BY [place] WITH OXGYEN SATUARTIONS 91-95%. LUNG SOUNDS CLEAR. NO COUGH HEARD AT THIS TIME. PT HYPOEROXGYENATED AT 15L AND UP TO BEDSIDE COMODE WITH OUT ANY SHORTNESS OF BREATH AND WITH OXGYEN SATURATION MAINTAINING ABOVE 92%. PT PERFORMS SELF FAIZAN CARE. STAND BY ASSIST BACK TO BED. PT WEANED BACK TO 7L O2 BY [place]. PT REPORTS HER ENERGY IS "MUCH BETTER" TODAY. PT ALSO STATES SHE FEELS HER STRENGTH IS "75% BACK TO NORMAL" CITING HOW SHE CAN GET UP ON HER OWN. PT POSITIONS SELF FOR COMFORT IN BED. HEAD OF BED AT 30 DEGREES. HEART TONES REMAIN REGULAR WITH SINUS RYTHEM NOTED ON MONITOR, HEART RATE REMAINS IN THE 90'S. ABDOMEN UNCHNAGED. PT DENIES ADDITIONAL REQUESTS OR COPMLAINTS. BED RAILS UP. CALL LIGHT WITHIN REACH.
[2022-08-07 14:24] VITALS: BP 115/54
--- NOTE | 2022-08-07 15:19 | NUR ---
THIS RN TO ROOM TO CHECK ON PT. PT RESTING IN BED, VISITING WITH FAMILY. OXYGEN SATURAION AT 93% ON 7L O2 BY NC. PT TOLREATING WELL. PT DENIES NEED FOR PAIN MEDICATION REPORTING BODY ACHES REMAIN AT 2/10. NO ADDITIONAL REQUESTS OR COMPLAINTS. CALL LIGHT WITHIN REACH. BED RAILS UP.
--- NOTE | 2022-08-07 15:26 | NUR ---
PT HERE FOR HYPOXIC RESPIRATROY FAILURE. PT UP WITH 1 PERSON ASSIST AND FWW TO CHAIR AND BEDSIDE COMODE. PT REPORTS SHORTNESS OF BREATH CONTINUES WITH ACTIVITY, OXGYEN SATUARTION SEEN TO DROP DURING ACTIVITY. PT REQUIRES 12-15L O2 WITH ACTIVITY TO MAINTAIN OXYGEN SATURATIONS. PT TOELRATING 60G CARB DIET WITH GOOD APPTITITE. TELEMETRY MONITORING CONTINUES W/HEART RATE 90-110 IN SINUS RYTHEM. PT WEANED FROM 10L TO 7L O2 BY NC, MAINTAINING OXGYEN SATUARTIONS ABOVE 92%. BLOOD SUGAR CHECKS WITH MEALS AND HS WITH SLIDING SCALE INSULIN GIVEN. VERY HIGH SUGARS CONTINUE TO BE SEEN. IV SOLUMEDROL GIVEN. PTS HOME METHOTREXATE GIVEN THIS SHIFT. FAMILY AT BEDSIDE THROUGHOUT SHIFT. PT VOIDING QUANITTY SUFFICIENT. PT USES CALL LIGHT AND MAKES NEEDS KNOWN.
--- NOTE | 2022-08-07 16:33 | NUR ---
THIS RN TO ROOM TO CHECK ON PT. PT CONTINUES RESTING IN BED. PT ENCOURAGED TO GET UP TO CHAIR FOR DINNER. PT DECLINES. TELEMETRY BATTERY REPLACED. OXGYEN SATUARTION CONTINUES TO BE ABOVE 91% ON 7L O2 BY SD. PT DENIES ADDITIONAL REQUESTS OR COMPLAINTS. FAMILY AT BEDSIDE. CALL LIGHT WITHIN REACH.
--- NOTE | 2022-08-07 17:16 | NUR ---
DINNER DELIVERED. PT UP TO SIT ON THE EDGE OF THE BED FOR DINNER. PT DECLINES TIME UP TO THE CHAIR. OXGYEN SATURATION DECREASES TO 77%. O2 INCREASED TO 10L O2 BY NC TO MAINTAIN OXGYEN SATURATIONS ABOVE 90% WHILE EATING. MEDICATION GIVEN. PT DENIES PAIN AND NAUSEA. NO ADDITIONAL REQUESTS OR COMPLAINTS. CALL LIGHT WITHIN REACH. BED RAILS UP.
[2022-08-07 17:57] VITALS: BP 115/52
--- NOTE | 2022-08-07 18:10 | NUR ---
Rounded on patient who is resting in bed with family at bedside. Pt on 10L 02, pt SPO2 at 100%, pt titrated to 8L and maintains saturations at 96%. Pt stated that she "walked into the bathroom and got tired" causing the need for increase of O2. She agrees to call for assistance from staff prior to transferring to bathroom in future. Call light in reach.
--- NOTE | 2022-08-07 19:06 | NUR ---
BEDSIDE REPORT RECEIVED FROM PIPER HA, PT SITTING IN BED, APPEARS COMFORTABLE, OXYGEN IN PLACE AT 8L PER NC, PT WITHOUT REQUESTS, VISITING WITH FAMILY MEMBERS.
--- NOTE | 2022-08-07 20:09 | NUR ---
VS AND I/O DONE AT THIS TIME PER WIRE STRETCHER, RESULTS REVIEWED.
--- NOTE | 2022-08-07 22:00 | NUR ---
PT AWAKE, ENCOURAGED TO REST, ATTEMPTS TO REORIENT, PT CALM.
[2022-08-07 22:03] VITALS: BP 116/65
--- NOTE | 2022-08-07 22:10 | NUR ---
PT AWAKE AND ALERT, VS DONE, UP TO BSC WITH ASSIST ORAL AND MAXILLOFACIAL PATHOLOGIST, VOIDED 450 ML YELLOW URINE, BACK TO BED, OXYGEN REMAINS ON AT 8L/MIN PER NC.
--- NOTE | 2022-08-07 22:40 | NUR ---
ASSESSMENT COMPLETED, RT MEDS GIVEN, ACCUCHECK 250, 5U HUMOLOG SQ GIVEN PER ORDER WELL HER LONG ACTING INSULIN PER ORDER. PT GIVEN RT CELEBREX, PT STATES CURRENTLY SHE HAS A HEADACHE AND SOME NECK DISCOMFORT.
--- NOTE | 2022-08-07 23:00 | NUR ---
NOTED PT'S SAT DROPPED TO 65% WHEN SHE REMOVED OXYGEN TO BLOW NOSE, OXYGEN REPLACED AND TURNED UP TO 12L/NC FOR APPROX 2 MINUTES THEN TURNED DOWN TO 8L/NC WITH SATS NOW 94%.
--- NOTE | 2022-08-07 23:30 | NUR ---
PT APPEARS TO SLEEP, OXYGEN SAT 92% ON 8L/NC
--- NOTE | 2022-08-08 00:20 | NUR ---
RN CALLED TO ROOM, PT C/O NAUSEA WHICH JUST CAME ON, SKIN WARM AND DRY, ACCUCHECK 204, PT STATES SHE WILL TRY SOME CRACKERS TO SEE IF THIS SETTLES HER TUMMY UPSET, NOTED PT HAD LARGE BURP WHICH DID HELP SOME.
--- NOTE | 2022-08-08 00:35 | NUR ---
PT OFFERED ZOFRAN 4MG PO, PT AGREES TO TRY, GIVEN PER ORDER, PT RESTING WITHOUT FURTHER REQUESTS.
--- NOTE | 2022-08-08 00:45 | NUR ---
PT APPEARS TO SLEEP, RESP EVEN AND REG, LAYING TOWARD LEFT SIDE.
--- NOTE | 2022-08-08 00:58 | NUR ---
PT REMAINS AWAKE, ROUNTINE SEROQUEL GIVEN PER ORDER, ASSESSMENT COMPLETED, OXYGEN REAMINS IN PLACE AT 2L/NC, PERIODIC MOIST COUGH, CATH CARE GIVEN, SL IN LEFT FOREARM FLUSHES WELL, SITE COVERED WITH STOCKING, SIDE RAILS UP X 4 AND BED ALARM ON, PT COOPERATIVE, ATTEMPTS TO REORIENT MADE.
--- NOTE | 2022-08-08 01:50 | NUR ---
PT RESTING WITH EYES CLOSED, RESP EVEN AND REG, AWAKEN BEFORE NURSE LEFT ROOM, PT STATES SHE FEELS BETTER AND NO LONGER NAUSEATED, PT WITHOUT REQUESTS.
--- NOTE | 2022-08-08 03:20 | NUR ---
PT AWAKE AND REQUEST ASSIST UP TO BSC, OXYGEN REMAINS ON AT 8L/NC, DESAT DOWN TO 76% WITH THIS , BACK TO BED, RECOVERED AFTER ABOUT 1 MINUTE UP TO 93%, PT WITHOUT C/O NAUSEA.
--- NOTE | 2022-08-08 04:15 | NUR ---
PT RESTING IN BED, OXYGEN SAT 95%, RESP REG.
[2022-08-08 05:45] VITALS: BP 117/60
--- NOTE | 2022-08-08 05:45 | NUR ---
PT AWAKEN, VS DONE AND STABLE, RT STERIODS GIVEN IV PER ORDER, PT WITHOUT REQUESTS AT THIS TIME.
--- NOTE | 2022-08-08 07:27 | NUR ---
REPORT RECEIVED FROM DILCIA BENAVIDES. PT RESTING IN BED WITH EYES CLOSED. OXGYEN IN PLACE BY OXY MASK AT 8L WITH SATURATIONS OF 95%. RESPIRATIONS EVEN AND UNLABORED. PT ALLOWED TO REST. CALL LIGHT WITHIN REACH. BED RAILS UP.
--- NOTE | 2022-08-08 08:46 | NUR ---
ASSISTED PT TO SIT AT SIDE OF BED FOR BREAKFAST.
--- NOTE | 2022-08-08 09:12 | NUR ---
MORNING MEDICATION AND ASSESSMENT DUE. PT SITTING ON EDGE OF BED FINISHING BREAKFAST. PT REPORTS 3/10 GENERALIZED PAIN, SEE MAR FOR MEDICATION GIVEN. PT ALERT AND ORIENTED TO ALL. LUNG SOUNDS CLEAR, PT CONTINUES TO TOLERAT 8L O2 BY NC WHILE RESTING. NEEDING 15L WITH ACTIVITY TO MAINTAIN OXGYEN SATURATIONS ABOVE 92%. OCCATIONAL COUGH CONTIUES WITH SMALL CLEAR THIN SPUTUM. HEART TONES REGULAR, CONTINUES IN THE 90'S. ABDOMEN UNCHANGED WITH HERNIA LIKE LUMP IN LOWER ABDOMEN, FIRM IN PLACES. PT DENIES ABDOMINAL PAIN. PT REQUESTS TO SHOWER. STAND BY ASSIST UP TO SHOWER. OXGYEN INCREASED TO 15L O2 BY NC FOR ACTIVITY. PTS DAUGHTER ASSISTING WITH SHOWER. LINENS CHANGED. ORAL CARE AND MORNING CARES DONE. FRESH GOWN, DEPENDS, AND SOCKS PROVIDED. PT UP TO CHAIR AFTER SHOWER. NO ADDITIONAL REQUESTS OR COMPLAINTS. CALL LIGHT WIHTIN REACH. FAMILY AT BEDSIDE.
[2022-08-08 09:15] VITALS: BP 108/49
--- NOTE | 2022-08-08 09:44 | NUR ---
PT FINISHED WITH SHOWER AND UP TO CHAIR. PT WEANED BACK TO 8L O2 BY NC. TOELRATING WELL WITH OXGYEN SATURATIOSN 90% AND ABOVE. ICE WATER REFILLED. PT DENEIS ADDITIONAL REQUESTS OR COMPLAINTS. CALL LIGHT WITHIN REACH. FAMILY AT BEDSIDE.
--- NOTE | 2022-08-08 09:50 | NUR ---
HOURLY ROUNDING: PT RESTING IN CHAIR WITH EYES CLOSED. RESPIRATIONS EVEN AND UNALBORED. OXGYEN SATURATIONS 92% ON 10L O2 BY NC. CALL LIGHT WITHIN REACH. PT ALLOWED TO REST UNDESTURBED.
--- NOTE | 2022-08-08 10:09 | NUR ---
PT CALL LIGHT ON. PT REQUESTS ASSISTANCE UP TO COMODE. STAND BY ASIST UP TO BEDSIDE COMODE. PT VOIDS 400ML CLEAR YELLOW URINE. PT MAINTINS OXGYEN SATURATIOSN 88-90% ON 10L O2 BY NC WITH ACTIVITY OF GETTING UP. RECOVERS TO 92% AFTER 1-2 MINUTES. PT PERFORMS SELF FAIZAN CARE. STAND BY ASSIST BACK TO CHAIR. NO ADDITIONAL REQUESTS OR COMPLAINTS. CALL LIGHT WITHIN REACH.
--- NOTE | 2022-08-08 10:14 | NUR ---
HOULRY ROUNDING: PT REMAINS UP TO CHAIR. OXGYEN SATUARITON 97-100% ON 8L O2 BY NC. PT WEANED TO 6L O2 BY NC WITH OXGYEN SATURATIONS ABOVE 92%. PT REPORTS PAIN HAS IMPROVINED, NOW 05/07, PT DENEIS NEED FOR ADDITIONAL PAIN MEDICAITON. PT REPORTS LEFT HER EAR IS PULGGED AFTER HER SHOWER, WASH CLOTHE OFFERED. PT DECLINES. NO ADDITIONAL REQUESTS OR COPMLAINTS. CALL LIGHT WITHIN REACH.
--- NOTE | 2022-08-08 11:05 | NUR ---
OXGYEN SATURATION DROPPING TO 85% ON 6L O2 BY NC. PT TITRATED UP TO 7L O2 BY NC WITH OXYGEN SATURATIONS 90-95%. PT VISITING WITH FAMILY. PT DENIES PAIN AND NAUSEA. NO ADDITIONAL REQUESTS OR COMPLAINTS. CALL LIGHT WITHIN REACH.
--- NOTE | 2022-08-08 11:40 | NUR ---
BLOOD SUGAR DUE. PT EATING COOKIES BROUGHT IN BY FAMILY. BLOOD SUGAR FOUND TO BE 383. DR. NASSAR NOTIFIED. NO NEW ORDERS. EDUCATION DONE WITH PT REGARDING CARBOHYDRATE INTAKE. PT AND FAMILY VERBALIZE UNDERSTANDING. NO ADDITIONAL REQUESTS OR COMPLAINTS. PT CONTINUES TO TOLERATE 7L O2 BY NC. CALL LIGHT WITHIN REACH.
--- NOTE | 2022-08-08 12:20 | NUR ---
LUNCH DELIVERED TO PT. INSULIN GIVEN. PT REMAINS UP TO CHAIR, FAMILY AT BEDSIDE. PT DENIES PAIN AND NAUSEA. WORK OF BREATHING. PT CONTINUES TO TOLEARTE 7L O2 BY NC. NO ADDITIONAL REQUSTS OR COMPLAINTS. CALL ARNALDO BHANDARI.
--- NOTE | 2022-08-08 12:47 | NUR ---
PT CALL LIGHT ON. PT REQUESTS ASSISTANCE UP TO RESTROOM. STAND BY ASSIST UP TO BEDSIDE COMODE. PT VOIDS WITHOUT ISSUE. PT REMINDED TO DO HER OWN FAIZAN CARE. PT REQUESTS TO GET BACK TO BED. PT ENCORUAGED TO STAY UP A BIT LONGER AND PT AGREES. PT CONTINUES TO TOLERATE 10L O2 BY NC. NO ADDITIONAL REQUESTS OR COMPLAINTS. CALL LIGHT WITHIN REACH.
--- NOTE | 2022-08-08 12:51 | NUR ---
THIS RN TO ROOM WITH DR NASSAR FOR ROUND. PT AND FAMILY UPDATED ON PLAN OF CARE AND STATE THEIR QUESTIONS HAVE BEEN ANSWERED. PT CONTINUES TO TOLEARTE 7L O2 BY NC. PT FINISHING LUNCH. NO ADDITIONAL REQUESTS OR COMPLAINTS. CALL ARNALDO BHANDARI.
[2022-08-08 14:50] VITALS: BP 111/52
--- NOTE | 2022-08-08 14:57 | NUR ---
AFTERNOON ASSESSMENT AND MEDICATION DUE. PT UPDATED ON PLAN OF CARE AND NEW MEDICATIONS. QUESTIONS ASKED AND ANSWERED. PT REPORTS WELL CONTROLLED 2/10 GENERALIZED PAIN. PT ALERT AND OREINTED TO ALL. NERUOPATHY PER BASELINE. ADDITONAL IV SITE NEEDED PT NOW HAS 2 ABX THAT ARE NOT COMPATABLE. 2ND IV SITE STARTED TO LEFT FORARM, PT TOLERATED WELL, BRISK BLOOD RETURN NOTED. IV VANOCMYACIN STARTED AT THIS SITE. CEFEPIME STARTED TO RIGHT FORARM IV SITE WHICH REMAINS WNL. UNALBE TO SCAN MEDICAITONS OR PTS BRACLET AT THIS TIME, MEDICATIONS AND PT VARIFIED AT BEDSIDE BY DILCIA CALHOUN. LUNG SOUNDS REMAIN CLEAR. OCCATIONAL PRODUCTIVE COUGH WITH CLEAR THIN SPUTUM. PT REMAINS ON 7L O2 BY NC WITH OXYGEN SATURATIONS ABOVE 90%. PT UP TO RESTROOM, 15L O2 BY NC NEEDED WITH ACTIVITY TO MAINTAIN OXGYEN SATURATIONS ABOVE 90%. PT VOIDS WITHOUT ISSUE AND BACK TO BED WITH STAND BY ASSIST. NO ADDITIONAL REQUESTS OR COMPLAINTS. CALL LIGHT WITHIN REACH. FAMILY AT BEDSIDE.
--- NOTE | 2022-08-08 16:36 | NUR ---
THIS RN TO ROOM TO CHECK ON PT. PT WATCHING TV WITH FAMILY. PT REPORTS 2/10 GENERALIZED PAIN THAT HAS IMPROVED. PT DENIES NEED FOR ADDITIONAL MEDICAITON. BOTH IVS DISCONECTED FROM IV PUMPS. PT STATES ABX WERE COMPLETE AND "ANOTHER NURSE" UNHOOKED THE IV SITES. IV SITES FLUSHED AND SALINE LOCKED PER PROTOCOL, ALCOHOL CAPS APPLIED. PT TOELRATING 7L O2 BY NC WITH OXGYEN SATURATION 88-92%. NO ADDITIONAL REQESUTS OR COMPLAINTS. CALL LIGHT WITHIN REACH. BED RAILS UP.
--- NOTE | 2022-08-08 17:06 | NUR ---
PT HERE FOR HYPOXIC RESPIRATROY FAILURE. PT UP WITH 1 PERSON ASSIST AND FWW TO CHAIR AND BEDSIDE COMODE. PT REPORTS SHORTNESS OF BREATH CONTINUES WITH ACTIVITY, OXGYEN SATUARTION SEEN TO DROP DURING ACTIVITY. PT REQUIRES 12-15L O2 WITH ACTIVITY TO MAINTAIN OXYGEN SATURATIONS. PT TOELRATING 60G CARB DIET WITH GOOD APPTITITE. IV CEFEPIME AND VANCO STARTED THIS SHIFT. PT CONTINUES ON 7-10L O2 BY NC, MAINTAINING OXGYEN SATUARTIONS ABOVE 92%. BLOOD SUGAR CHECKS WITH MEALS AND HS WITH SLIDING SCALE INSULIN GIVEN. VERY HIGH SUGARS CONTINUE TO BE SEEN. IV SOLUMEDROL GIVEN. FAMILY AT BEDSIDE THROUGHOUT SHIFT. PT VOIDING QUANITTY SUFFICIENT. PT USES CALL LIGHT AND MAKES NEEDS KNOWN.
[2022-08-08 17:24] VITALS: BP 99/58
--- NOTE | 2022-08-08 18:51 | NUR ---
THIS RN TO ROOM TO CHECK ON PT. PT RESTING IN BED. OXGYEN SATURATION 88-90% ON 8L O2 BY NC. OXYGEN INCREASED TO 10L O2 BY NC TO MAINTAIN OXYGEN SATURATIONS ABOVE 90%. PT DENIES PAIN AND NAUSEA. NO ADDITIONAL REQUESTS OR COMPLAINTS. CALL LIGHT WIHTIN REACH. BED RAILS UP.
--- NOTE | 2022-08-08 19:05 | NUR ---
BEDSIDE REPORT RECEIVED PER PIPER RN, PT RESTING, WITHOUT REQUEST AT THIS TIME.
--- NOTE | 2022-08-08 20:15 | NUR ---
PATIENT CALLED TO USE THE TOILET. BEDSIDE COMMODE OFFERED DUE TO PATIENT GETS SHORTNESS OF BREATH. SBA. PATIENT IS BACK IN BED. V/S, I&O'S AND BLOOD SUGAR CHECK DONE. ICE WATER REFILLED. DENIES OTHER NEEDS AT THIS TIME. PATIENT WAS WATCHING TV. CALL LIGHT WITHIN REACH.
[2022-08-08 20:29] VITALS: BP 117/48
--- NOTE | 2022-08-08 20:29 | NUR ---
VS AND I/O DONE PER BINDING CEMENTER FRENCH CORD, ACCUCHECK DONE AND REPORTED TO BE 187, PT WITHOUT REQUEST.
--- NOTE | 2022-08-08 20:55 | NUR ---
PT AWAKEN FOR GLARGINE 15U INSULIN AND HUMOLOG 3 UNITS SQ, PT WITHOUT REQUESTS, ATTEMPTING TO SLEEP.
--- NOTE | 2022-08-08 21:20 | NUR ---
o2 SATS NOW READING 98 VIA CPOX TEL. PRIOR TO THIS NOTE, SATS WERE READING 83, PT HAD BEEN USING THE IS.
--- NOTE | 2022-08-08 22:00 | NUR ---
PT AWAKE, WATCHING TV, ASSESSMENT DONE, PT DENIES REQUESTS AT THIS TIME.
--- NOTE | 2022-08-08 22:20 | NUR ---
PT ASLEEP AND OXYGEN SATS DOWN TO 88%, FIO2 INCREASED TO 12L/NC, PLAN TO MONITOR.
--- NOTE | 2022-08-08 23:14 | NUR ---
PT RESTING WITH EYES CLOSED, AWAKEN FOR RT ANTIBODIC ADMINISTRATION, RIGHT SF FLUSHES WELL, A/B INFUSING WELL, OXYGEN SAT 93% OXYGEN DECREASED TO 11L/NC FROM 12L/NC, LIGHT PINK NOTED ON TISSUE ON BED SIDE TABLE, PT STATES THIS IS LIGHT BLEEDING FOR BLOWING HER NOSE, HUMIDIFICATION CONTS WITH OXYGEN DELIVERY.
[2022-08-09] VITALS (16 sets, daily range): BP systolic 89–110; BP diastolic 47–57
--- NOTE | 2022-08-09 00:30 | NUR ---
PT AWAKE, REQUESTS REPOSITIONED UP IN BED, AND TILTED TOWARD THE LEFT, SAT DOWN TO 87% WITH TURNING BUT GRADUALLY GOES BACK TO 93%, PT DESIRES HOB TO BE LOWERED SLIGHTLY, DONE.
--- NOTE | 2022-08-09 01:30 | NUR ---
PT ASLEEP, RESP REG, SAT 91%.
--- NOTE | 2022-08-09 01:40 | NUR ---
PT REQUESTING TO BE TURNED TO RIGHT SIDE, DONE PER PHOSPHORUS PROCESSING SUPERVISOR, PT WITHOUT OTHER REQUESTS.
--- NOTE | 2022-08-09 01:44 | NUR ---
PATIENT CALLED. ASSISTED PATIENT REPOSITIONED ONTO HER RIGHT SIDE. DENIES FURTHER NEEDS THIS TIME.
--- NOTE | 2022-08-09 02:00 | NUR ---
NOTED PT'S OX SAT IS 87% PT ASLEEP ON RIGHT TILT, OX TURNED UP TO 12L/NC, SATS UP TO 89-90%
--- NOTE | 2022-08-09 02:25 | NUR ---
PT ASLEEP, SATS DOWN TO 84-85%, PT REMAINS ON RIGHT SIDE, TURN TOWARDS BACK AND MOVED UP IN BED, HIPS FLOATED, SATS DOWN TO 76% AFTER COUGHING WITH REPOSITIONING, FIO2 UP TO 14L/MIN. SATS GRADUALLY IMCREASING TO 93% PT BACK TO SLEEP WHEN LEFT UNDISTURDED.
--- NOTE | 2022-08-09 03:03 | NUR ---
PT AWAKE, DESIRES TO GO VOID, ASSISTED UP TO BSC, OXYGEN IN PLACE AND FLOW RATE INCREASED TO 15L/MIN, AFTER VOIDED PT SAT ON SIDE OF BED, APPEARS SOB, SATS REPORTED DOWN TO 82, BREATH SOUNDS CLEAR, ASSISTED TO SUPINE POSITION WITH HOB ELEVATED APPROX 40 DEGREES, PT TEARFUL AND STATES SHE WISHED SHE KNEW WHY HER LUNGS ARE SO BAD AND WONDERS IF SHE MIGHT BE "NEARING THE END", SUPPORT GIVEN,
--- NOTE | 2022-08-09 03:35 | NUR ---
RT TO ROOM TO ASSESS PT
--- NOTE | 2022-08-09 03:50 | NUR ---
RT UPDATED DR NASSAR, ORDERS RECEIVED FOR BIPAP, PT BEING PLACED ON BIPAP PER RT PER ORDER.
--- NOTE | 2022-08-09 04:10 | NUR ---
REPORT RECEIVED FROM CARTER CLAY, PT'S RESTING MORE COMFORTABLE PER REPORT WHILE ON BIPAP, SETTINGS REPORTED TO BE 12/5 ON 50% FIO2.
--- NOTE | 2022-08-09 04:35 | NUR ---
BIPAP ALARMING, RN TO ROOM, SAT NOTED TO BE 70%, BIPAP TUBING FOUND TO BE DISCONNECTED, TUBING RECONNECTED AND FIO2 INCREASED TO 80%, RT TO BEDSIDE, OXYGEN SATS STEADY RISE TO 90-92, FIO2 DECREASED TO 50%, PT RESTING
--- NOTE | 2022-08-09 05:11 | NUR ---
PT RESTING IN BED. VITALS AND IS AND OS COMPLETE, NO NEEDS AT THIS TIME. CALL LIGHT WITHIN REACH
--- NOTE | 2022-08-09 05:20 | NUR ---
LAB IN FOR AM BLOOD DRAWN
--- NOTE | 2022-08-09 05:41 | NUR ---
RN CALLED TO ROOM, PT WONDERING IF SHE CAN HAVE BIPAP REMOVED, DISCUSSED IMPORTANCE OF BIPAP AT THIS TIME, PT AGREES TO LEAVING THIS ON, FOCUSED ASSESSMENT DONE.
--- NOTE | 2022-08-09 06:11 | NUR ---
PATIENT REQUESTED BIPAP OFF SHE GOT TOO WARM. PLAN TO TRY AGAIN LATER WITH HEAT OFF.
--- NOTE | 2022-08-09 06:30 | NUR ---
PT RESTING WITH EYES CLOSED, PT REMAINS ON OXY MASK AT 15L/NC, SATS 92-94%.
--- NOTE | 2022-08-09 07:44 | NUR ---
PT RESTING EYES CLOSED AT TIME OF SHIFT REPORT LEFT UNDISTURBED. AWAKE NOW TALKING WITH VISITOR. [address] PT DENIES NEEDS OF. PLAN OF CARE AND MEDICATIONS DISCUSSED PER HER REQUEST
--- NOTE | 2022-08-09 08:09 | NUR ---
RT IN ROOM TO SEE PATIENT, 02 SATS IN MID 70'S AND PATIENT IS BEING CONVERTED TO VAPOTHERM. FAMILY IN ROOM, AND DISCUSSED PATIENT WAITING TO EAT BREAKFAST UNTIL O2 LEVELS STABILIZE. PATIENT BOOSTED TO A MORE UPRIGHT SITTING POSITION IN BED.
--- NOTE | 2022-08-09 08:20 | NUR ---
R/T PRESENT IN THE ROOM CHANGE PT TO VAPOTHERM DUE TO SATS DROPPING. PT UPRIGHT IN BED VAPOTHERM IN PLACE SATS HIGH 90'S. PT AGREES SHE IS COMFORTABLE FRESH H20 TO BEDSIDE DENIES OTHER NEEDS OF
--- NOTE | 2022-08-09 09:14 | NUR ---
PT RESTING IN BED SITTING UP EYES CLOSED VAPOTHERM IN PLACE. BREATHING APPEARS EVEN AND UNLABORED, PT DENIES DISOCMFORTS OR NEEDS OF. FLUIDS AND CALL LIGHT AT BEDSIDE
--- NOTE | 2022-08-09 10:04 | NUR ---
FAIZAN CARE DONE AND PUREWICK PLACED DUE TO PT ACTIVITY INTOLERANCE. VISITORS PRESENT X3. PT AGREES SHE IS COMFORTABLE
--- NOTE | 2022-08-09 10:20 | NUR ---
Spoke with Shiloh. Family are in the room. They have questions about how long she will require antibiotics and if she can continue her steroids. I will notify Dr. Mckeon. Pt states she's very tired, but is feeling somewhat better today.
--- NOTE | 2022-08-09 11:00 | NUR ---
Received a HIPAA release from [facility] for [facility]. She asked I fax it to [facility]. Faxed to [facility] medical records with request they give to Marilyn Madison.
--- NOTE | 2022-08-09 11:24 | NUR ---
UPDATE GIVEN TO DR NASSAR R/T PT CONDITION THIS SHIFT. PLANS TO TRANSFER HER TO CCU FOR CLOSER MONITORING.
--- NOTE | 2022-08-09 11:59 | NUR ---
pt to room 129 from ms with rt and client services vice president - report from blaine hunter, pt on vapo therm.
--- NOTE | 2022-08-09 12:28 | NUR ---
pt oriented to ccu 129, vapo therm 32lpm 60% 91%, iv abx fusing, tylenol po given for headache, hr 96 - family in room, pt eating lunch and watching her soap opera. call light in reach, pure wick in place and bedrest with repositioning.
--- NOTE | 2022-08-09 15:41 | NUR ---
repositioned pt in bed, purewick draining clear yellow urine, family in room, hr 93, 91% on vapotherm 32 L
--- NOTE | 2022-08-09 16:50 | NUR ---
pt resting in bed, meal served - family in to visit. meds given, 91% on 32 lpm vapotherm. call light in reach -
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
--- NOTE | 2022-08-09 21:00 | NUR ---
ROUNDING FOR HS MED PASS AND ASSESSMENT, PT REPORTS PAIN 4/10 GENERALIZED AT THIS TIME, TYLENOL PRN ADMINISTERED PRN, PT REPOSITIONED. PT HAS NO OTHER REQUESTS OR CONCERNS, SHE REMAINS ON VAPOTHERM .
[2022-08-10] VITALS (7 sets, daily range): BP systolic 90–125; BP diastolic 48–76
--- NOTE | 2022-08-10 00:02 | NUR ---
PT RESTING IN BED, EYES CLOSED ON VAPOTHERM AT 32/65, HER OXYGEN SATURATION 90% AT THIS TIME. NO DISRESS NOTED.
--- NOTE | 2022-08-10 01:30 | NUR ---
TALKED TO ON PHONE TO UPDATE ABOUT PT LOW URINE OUT. GAVE ORDER FOR 1L LR OVER 5HRS, ONCE.
--- NOTE | 2022-08-10 01:47 | NUR ---
SpO2 DOWN TO LOW 60'S. IN TO ROOM. PT REMOVED VAPOTHERM TO BLOW NOSE. SMALL AMOUNT OF BLOOD NOTED IN TISSUE. VAPOTHERM REPLACED AT 32/65. PT SLOWLY RECOVERED TO 90-91%. PRN BREATHING TX ADMIN. PT REPOSITIONED IN BED. NO FURTHER NEEDS.
--- NOTE | 2022-08-10 05:57 | NUR ---
PT HAS HAD LARGE INCONT AND VOIDED 5OOML IN BSC, SHE DID NOT TOELRATE ACTIVITY WELL, DESATURATED TO 75% REQUIRED INCREASE TO 100% AND 40L FLOW TO MAINTAIN 87% OXYGEN SATURATION WITH ACTIVITY. SALINE NASAL RINSE PROVIDED WITH SUCTION, PT FEELS CONGESTED. SALINE RINSE SPRAY ORDERED ON NIO THIS AM.
--- NOTE | 2022-08-10 07:15 | NUR ---
report from babs/anali manufacturing supervisor 2nd shift rns - pt resting in bed - vapo therm on, call light in reach .
--- NOTE | 2022-08-10 08:00 | NUR ---
PATIENT AWAKE IN BED, VISITOR AT BEDSIDE. PATIENT REPOSITIONED, SITTING UPRIGHT AT THIS TIME. VITALS CHARTED.
--- NOTE | 2022-08-10 08:45 | NUR ---
pt repositioned to right side to shift weight and lung positioning, denies needs to use bathroom/bedpan - no purewick.
--- NOTE | 2022-08-10 09:57 | NUR ---
in room with pt, family and dr faith for rounds. pt on r side, vapotherm on, c/o snotty nose, congestion - will get new orders for psuedophed.
--- NOTE | 2022-08-10 10:28 | NUR ---
cervantes cath placed using lead quality control technician - pt toll well, bed bath done after with rhianna care - rt in for bipap set up and notified of abg need. iv abx fusing.
--- NOTE | 2022-08-10 10:28 | NUR ---
BEDBATH GIVEN, DIETRICH INSERTED AT THIS TIME BY DILCIA CALHOUN.
--- NOTE | 2022-08-10 11:00 | NUR ---
pt trsf to ct scan with this rn, assisted to table for scan with slider board, linens changed - pt tollerated scan well and returned to room with rn, back on vapotherm - RT fredis setting up bipap, pt cervantes draining qs yellow urine.
--- NOTE | 2022-08-10 12:16 | NUR ---
assisted pt with meal - enc. eating - 3 units insulin given, vapotherm on for meal , 30 lpm/ 9090% o2 = sats 92-94% while eating. decreased sats to 60% with nose blowing.
--- NOTE | 2022-08-10 13:40 | NUR ---
in room with dr faith, pt and family to discuss CT scan and [facility] consult. pt resumes bipap -
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
--- NOTE | 2022-08-10 16:15 | NUR ---
When I returned to my office, Anna from Billing/Eligibility, brought 5 gift cards to sign [facility] pts up for [employer] when needed. I called her and she stated I could give a card to the family for reimbursment for the cost of [employer]. We have been working on cards for several months. Took one card after completing the sign out sheet and gave to pts sister. Shiloh denies other needs. Waiting on [employer] which is enroute.
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
== END 2022-08-10 17:15 | disposition short-term general hospital (02) | DRG 177 ==
LOC: ED 08:45 → MS 12:11 → CCU 12:11
PROVIDERS: ADMIT Internal Medicine; ATTEND Internal Medicine
PROC: 4A133R1 Monitoring of Arterial Saturation, Peripheral, Percutaneous Approach (ICD-10-PCS; principal; 2022-08-08)
PROC: 5A09357 Assistance with Respiratory Ventilation, Less than 24 Consecutive Hours, Continuous Positive Airway Pressure (ICD-10-PCS; 2022-08-09)
DX: J15.6 Pneumonia due to other Gram-negative bacteria (principal); J96.01 Acute respiratory failure with hypoxia; M06.9 Rheumatoid arthritis, unspecified; I12.9 Hypertensive chronic kidney disease with stage 1 through stage 4 chronic kidney disease, or unspecified chronic kidney disease; E11.22 Type 2 diabetes mellitus with diabetic chronic kidney disease; E11.65 Type 2 diabetes mellitus with hyperglycemia; N18.31 Chronic kidney disease, stage 3a; Z20.822 Contact with and (suspected) exposure to COVID-19; F32.A Depression, unspecified; M81.0 Age-related osteoporosis without current pathological fracture; K46.9 Unspecified abdominal hernia without obstruction or gangrene; G89.29 Other chronic pain; M54.9 Dorsalgia, unspecified; F17.200 Nicotine dependence, unspecified, uncomplicated; Z99.81 Dependence on supplemental oxygen; Z88.1 Allergy status to other antibiotic agents; Z88.6 Allergy status to analgesic agent; Z88.5 Allergy status to narcotic agent; Z98.891 History of uterine scar from previous surgery; Z90.49 Acquired absence of other specified parts of digestive tract; Z98.890 Other specified postprocedural states; Z90.710 Acquired absence of both cervix and uterus; Z79.2 Long term (current) use of antibiotics; Z79.899 Other long term (current) drug therapy; Z79.891 Long term (current) use of opiate analgesic; Z79.84 Long term (current) use of oral hypoglycemic drugs
CPT/HCPCS: 36415; 36600; 71045; 71250; 71260; 80048; 80053; 80202; 82803; 83036; 83880; 84484; 85025; 85379; 87502; 94640; 94660; 94667; 94668; 94760; 94762; 94799; A9270; C9803; J0456; J0692; J1650; J1815; J1940; J2920; J3370; J7060; J7121; J8610; Q9967; U0003